=== PATIENT | female | born 1975 | race Hispanic/Latino ===

== ENCOUNTER 2018-06-04 20:15 | Emergency (ER) | payer SELFPAY ==
[2018-06-04] MEDS ORDERED: NA CHLORIDE 0.9% 100 ML IV ONE (21:18)
[2018-06-04] MEDS ORDERED: PROMETHAZINE 25 MG/ML VIAL ONE (21:18)
[2018-06-04] MEDS ORDERED: MORPHINE 4 MG/ML SYR ONE (21:18)
[2018-06-04] MEDS ORDERED: NA CHLORIDE 0.9% 1,000 ML ONE (21:18)
--- NOTE | 2018-06-04 22:51 | EDPHYS ---
Physician Documentation [facility] Name: Yissel Carmona Age: 42 yrs Sex: Female : 1975 Arrival Date: 06/04/2018 Time: 20:17 Bed 23 Private MD: ED Physician Dwayne Joyner HPI: 06/05 04:53 This 42 yrs old Female presents to ER via Ambulatory with complaints of tw4 Headache. 04:53 The patient complains of pain to the forehead. The patient describes the headache as tw4 pounding, a pressure. Onset: The symptoms/episode began/occurred today. Associated signs and symptoms: Pertinent positives: nausea, vomiting. Severity of symptoms: At its worst the pain was moderate, in the emergency department the pain is unchanged. Headache History: Denies prior headaches. The patient has not experienced similar symptoms in the past. 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 - Social history:: Smoking status: Patient/guardian denies using tobacco. - Ebola Screening: : Patient denies travel to an Ebola-affected area in the 21 days before illness onset. ROS: 06/05 04:53 Constitutional: Negative for fever, chills, and weight loss, Eyes: Negative for injury, tw4 pain, redness, and discharge, Cardiovascular: Negative for chest pain, palpitations, and edema, Respiratory: Negative for shortness of breath, cough, wheezing, and pleuritic chest pain. Neck: Negative for stiffness. Abdomen/GI: Positive for nausea and vomiting, Negative for abdominal pain, nausea, vomiting, diarrhea, constipation, abdominal cramps, abdominal distension. Neuro: Positive for headache, Negative for altered mental status, dizziness, gait disturbance, tinnitus. Neuro: Positive for Negative for hearing loss, loss of consciousness, numbness, seizure activity, tremor, visual changes, weakness. Exam: 04:53 Head/Face: Normocephalic, atraumatic. Eyes: Pupils equal round and reactive to light, tw4 extra-ocular motions intact. Lids and lashes normal. Conjunctiva and sclera are non-icteric and not injected. Cornea within normal limits. Periorbital areas with no swelling, redness, or edema. Chest/axilla: Normal chest wall appearance and motion. Nontender with no deformity. No lesions are appreciated. Cardiovascular: Regular rate and rhythm with a normal S1 and S2. No gallops, murmurs, or rubs. Normal PMI, no JVD. No pulse deficits. Respiratory: Lungs have equal breath sounds bilaterally, clear to auscultation and percussion. No rales, rhonchi or wheezes noted. No increased work of breathing, no retractions or nasal flaring. Abdomen/GI: Soft, non-tender, with normal bowel sounds. No distension or tympany. No guarding or rebound. No evidence of tenderness throughout. MS/ Extremity: Pulses equal, no cyanosis. Neurovascular intact. Full, normal range of motion. Neuro: Awake and alert, GCS 15, oriented to person, place, time, and situation. Cranial nerves II-XII grossly intact. Motor strength 5/5 in all extremities. Sensory grossly intact. Cerebellar exam normal. Normal gait. 04:53 Constitutional: The patient appears in obvious distress, mildly distressed, in obvious pain, uncomfortable. Vital Signs: 06/04 20:22 BP 129 / 89; Pulse 111; Resp 20; Temp 97.8; Pulse Ox 99% on R/A; Weight 86.18 kg (R); aj1 Height 5 ft. 2 in. (157.48 cm) (R); Pain 8/10; 21:26 BP 122 / 76; Pulse 101; Resp 18; Pulse Ox 100% on R/A; Pain 6/10; mg2 22:55 BP 123 / 70; Pulse 83; Resp 18; Pulse Ox 100% on R/A; Pain 0/10; mg2 20:22 Body Mass Index 34.75 (86.18 kg, 157.48 cm) aj1 Liberty Coma Score: 06/05 04:53 Eye Response: spontaneous(4). Verbal Response: oriented(5). Motor Response: obeys tw4 commands(6). Total: 15. MDM: 06/04 20:24 Patient medically screened. tw4 06/05 04:53 Differential diagnosis: migraine, sinusitis, tension headache, traumatic injuries, tw4 vasomotor headache. Data reviewed: vital signs, nurses notes. Data interpreted: Pulse oximetry: Interpretation: normal. Counseling: I had a detailed discussion with the patient and/or guardian regarding: the historical points, exam findings, and any diagnostic results supporting the discharge/admit diagnosis. Medication response: Toradol relieved patient's pain. The symptoms have resolved. Response to treatment: the patient's symptoms have markedly improved after treatment, and as a result, I will discharge patient. Special discussion: I discussed with the patient/guardian in detail that at this point there is no indication for admission to the hospital. It is understood, however, that if the symptoms persist or worsen the patient needs to return immediately for re-evaluation. Administered Medications: 06/04 21:15 Drug: Phenergan 12.5 mg Route: IVP; Site: right antecubital; mg2 23:11 Follow up: Response: No adverse reaction; Marked relief of symptoms; Vomiting decreased mg2 21:15 Drug: NS 0.9% 1000 ml Route: IV; Rate: 1 bolus; Site: right antecubital; mg2 23:05 Follow up: Response: No adverse reaction; IV Status: Completed infusion mg2 21:16 Drug: morphine 4 mg Route: IVP; Site: right antecubital; mg2 23:12 Follow up: Response: No adverse reaction; Marked relief of symptoms mg2 Disposition: 06/04/18 22:50 Discharged to Home. Impression: Migraine with aura, not intractable, without status migrainosus. - Condition is Stable. - Discharge Instructions: Migraine Headache, [id number], Recurrent Migraine Headache, [id number]. - Prescriptions for Fiorinal 50- 325-40 mg Oral Capsule - take 1 capsule by ORAL route every 4 hours As needed - not to exceed 6 capsules per day; 20 capsule. promethazine 25 mg Oral Tablet - take 1 tablet by ORAL route every 6 hours As needed; 20 tablet. - Medication Reconciliation Form, Thank You Letter, Antibiotic Education, Prescription Opioid Use, Work release form form. - Follow up: Private Physician; When: Upon discharge from the Emergency Department; Reason: Further diagnostic work-up, Recheck today's complaints, Continuance of care. - Problem is new. - Symptoms have improved. Signatures: Lisset Simental, RN RN aj1 Dwayne Joyner MD MD tw4 Tashi Weaver, RN RN mg2 Corrections: (The following items were deleted from the chart) 23:14 22:50 06/04/2018 22:50 Discharged to Home. Impression: Migraine with aura, not mg2 intractable, without status migrainosus. Condition is Stable. Forms are Medication Reconciliation Form, Thank You Letter, Antibiotic Education, Prescription Opioid Use. Follow up: Private Physician; When: Upon discharge from the Emergency Department; Reason: Further diagnostic work-up, Recheck today's complaints, Continuance of care. Problem is new. Symptoms have improved. tw4
--- NOTE | 2018-06-04 22:51 | ER ---
Nurse's Notes [facility] Name: Yissel Carmona Age: 42 yrs Sex: Female : 1975 Arrival Date: 06/04/2018 Time: 20:17 Bed 23 Private MD: Diagnosis: Migraine with aura, not intractable, without status migrainosus Presentation: 06/04 20:19 Presenting complaint: Patient states: "I have a bad migraine with nausea" Reports aj1 headache that started at 1300 today. Patient reports a history of migraines, and this feel similar to previous episodes. Patient states that she has an appointment with her neurologist next week. Transition of care: patient was not received from another setting of care. Onset of symptoms was June 04, 2018 at 13:00. Risk Assessment: Do you want to hurt yourself or someone else? Patient reports no desire to harm self or others. Initial Sepsis Screen: Does the patient meet any 2 criteria? HR > 90 bpm. No. Patient's initial sepsis screen is negative. Does the patient have a suspected source of infection? No. Patient's initial sepsis screen is negative. Care prior to arrival: None. 20:19 Method Of Arrival: Ambulatory aj1 20:19 Acuity: NEVAEH 3 aj1 Triage Assessment: 20:22 General: Appears in no apparent distress. uncomfortable, Behavior is calm, cooperative, aj1 appropriate for age. Pain: Complains of pain in forehead Pain currently is 8 out of 10 on a pain scale. Neuro: Level of Consciousness is awake, alert, obeys commands. Cardiovascular: Patient's skin is warm and dry. Respiratory: Airway is patent Respiratory effort is even, unlabored, Respiratory pattern is regular, symmetrical. 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 - Social history:: Smoking status: Patient/guardian denies using tobacco. - Ebola Screening: : Patient denies travel to an Ebola-affected area in the 21 days before illness onset. Screenin:36 Abuse screen: Denies threats or abuse. Denies injuries from another. Nutritional mg2 screening: No deficits noted. Tuberculosis screening: No symptoms or risk factors identified. Fall Risk IV access (20 points). Assessment: 23:12 Reassessment: Patient appears in no apparent distress at this time. Patient and/or mg2 family updated on plan of care and expected duration. Pain level reassessed. Patient is alert, oriented x 3, equal unlabored respirations, skin warm/dry/pink. Patient denies pain at this time. Patient states feeling better. General: Appears in no apparent distress. Vital Signs: 20:22 BP 129 / 89; Pulse 111; Resp 20; Temp 97.8; Pulse Ox 99% on R/A; Weight 86.18 kg (R); aj1 Height 5 ft. 2 in. (157.48 cm) (R); Pain 8/10; 21:26 BP 122 / 76; Pulse 101; Resp 18; Pulse Ox 100% on R/A; Pain 6/10; mg2 22:55 BP 123 / 70; Pulse 83; Resp 18; Pulse Ox 100% on R/A; Pain 0/10; mg2 20:22 Body Mass Index 34.75 (86.18 kg, 157.48 cm) aj1 Michelle Coma Score: 06/05 04:53 Eye Response: spontaneous(4). Verbal Response: oriented(5). Motor Response: obeys tw4 commands(6). Total: 15. ED Course: 06/04 20:17 Patient arrived in ED. am2 20:21 Triage completed. aj1 20:22 Arm band placed on Patient placed in an exam room. aj1 20:24 Dwayne Joyner MD is Attending Physician. tw4 20:30 Inserted saline lock: 20 gauge in right antecubital area, using aseptic technique. jb5 Blood collected. 20:34 Tashi Weaver, TORRES is Primary Nurse. mg2 23:12 No provider procedures requiring assistance completed. IV discontinued, intact, mg2 bleeding controlled, No redness/swelling at site. Pressure dressing applied. 23:13 Patient has correct armband on for positive identification. mg2 Administered Medications: 21:15 Drug: Phenergan 12.5 mg Route: IVP; Site: right antecubital; mg2 23:11 Follow up: Response: No adverse reaction; Marked relief of symptoms; Vomiting decreased mg2 21:15 Drug: NS 0.9% 1000 ml Route: IV; Rate: 1 bolus; Site: right antecubital; mg2 23:05 Follow up: Response: No adverse reaction; IV Status: Completed infusion mg2 21:16 Drug: morphine 4 mg Route: IVP; Site: right antecubital; mg2 23:12 Follow up: Response: No adverse reaction; Marked relief of symptoms mg2 Outcome: 22:50 Discharge ordered by . maco 23:13 Discharged to home ambulatory, with friend. mg2 23:13 Condition: improved 23:13 Discharge instructions given to patient, friend, Instructed on discharge instructions, follow up and referral plans. Demonstrated understanding of instructions, follow-up care. 23:14 Patient left the ED. mg2 Signatures: Lisset Simental RN RN aj1 Elsa Barcenas jb5 Ashley Rodriguez am2 Dwayne Joyner MD MD tw4 Tashi Weaver RN RN mg2
== END 2018-06-04 23:14 | disposition home or self-care (01) ==
LOC: ER 20:15
DX: G43.109 Migraine with aura, not intractable, without status migrainosus (principal)
CPT/HCPCS: 96361; 96374; 96375; 99283; J2550; J7030

== ENCOUNTER 2018-08-01 14:06 | Emergency (ER) | payer OTHER ==
--- OUTSIDE RECORDS SUMMARY | 2018-08-01 14:09 | XMS REPORT ---
:1975 [facility] Anthony Dr. Zhang [address] [place] [id number] Care Team Providers Name Role Phone Unavailable Unavailable Unavailable Problems This patient has no known problems. Allergies, Adverse Reactions, Alerts This patient has no known allergies or adverse reactions. Medications This patient has no known medications.
[2018-08-01] MEDS ORDERED: MORPHINE 4 MG/ML SYR ONE (15:39)
[2018-08-01] MEDS ORDERED: NA CHLORIDE 0.9% 1,000 ML ONE (15:39)
[2018-08-01] MEDS ORDERED: PROMETHAZINE 25 MG/ML VIAL ONE (15:39)
--- NOTE | 2018-08-01 16:45 | ER ---
Nurse's Notes [facility] Name: Yissel Carmona Age: 42 yrs Sex: Female : 1975 Arrival Date: 08/01/2018 Time: 14:10 Bed 27 Private MD: None, None Diagnosis: Migraine Presentation: 08/01 14:30 Presenting complaint: Patient states: Frontal headache, nausea, and photosensitivity x hb 2 hrs. Hx of migraines. Transition of care: patient was not received from another setting of care. Onset of symptoms was August 01, 2018. Risk Assessment: Do you want to hurt yourself or someone else? Patient reports no desire to harm self or others. Care prior to arrival: Medication(s) given: Excedrin Migraine 2 hrs [employer]. 14:30 Method Of Arrival: Ambulatory hb 14:30 Acuity: NEVAEH 3 hb 15:35 Initial Sepsis Screen: Does the patient meet any 2 criteria? No. Patient's initial rv sepsis screen is negative. Does the patient have a suspected source of infection? No. Patient's initial sepsis screen is negative. Historical: - Allergies: 14:32 Cipro; hb 14:32 Reglan; hb 14:32 Stadol; hb 14:32 Toradol; hb 14:32 Zofran; hb - Home Meds: 14:32 Topamax Oral [Active]; hb - PMHx: 14:32 Migraines; one kidney; hb - PSHx: 14:32 Cholecystectomy; hb - Immunization history:: Adult Immunizations up to date. - Social history:: Smoking status: Patient/guardian denies using tobacco. - Ebola Screening: : No symptoms or risks identified at this time. Screenin:35 Abuse screen: Denies threats or abuse. Denies injuries from another. Nutritional rv screening: No deficits noted. Tuberculosis screening: No symptoms or risk factors identified. Fall Risk None identified. Assessment: 15:34 General: Appears in no apparent distress. uncomfortable, Behavior is calm, cooperative. rv Pain: Complains of pain in head. Neuro: Level of Consciousness is awake, alert, obeys commands, Oriented to person, place, time, situation. Cardiovascular: Capillary refill < 3 seconds. Respiratory: Airway is patent. GI: No signs and/or symptoms were reported involving the gastrointestinal system. : No signs and/or symptoms were reported regarding the genitourinary system. EENT: No signs and/or symptoms were reported regarding the EENT system. Derm: Skin is intact. Musculoskeletal: No signs and/or symptoms reported regarding the musculoskeletal system. Vital Signs: 14:32 BP 138 / 74; Pulse 95; Resp 16; Temp 97; Pulse Ox 100% on R/A; Pain 10/10; hb 15:00 BP 127 / 76; Pulse 92; Resp 17 S; Pulse Ox 100% on R/A; rv 17:30 BP 124 / 69; Pulse 88; Resp 18; Pulse Ox 99% on R/A; rv ED Course: 14:10 Patient arrived in ED. sb2 14:11 None, None is Private Physician. sb2 14:32 Triage completed. hb 14:32 Arm band placed on right wrist. hb 15:08 Mendel Miranda, [place] is PHCP. pm1 15:08 Silvio Tesfaye MD is Attending Physician. pm1 15:35 Patient has correct armband on for positive identification. Bed in low position. Call rv light in reach. Side rails up X 1. Adult w/ patient. Pulse ox on. NIBP on. 15:48 Inserted saline lock: 20 gauge in left antecubital area, using aseptic technique. ds4 Missed attempt(s): 24 gauge in right antecubital area. Bleeding controlled, band aid applied, catheter tip intact. 17:31 No provider procedures requiring assistance completed. IV discontinued, bleeding rv controlled, No redness/swelling at site. Pressure dressing applied. Administered Medications: 15:46 Drug: Phenergan 12.5 mg Route: IVP; Site: left antecubital; rv 17:30 Follow up: Response: Pain is decreased rv 15:46 Drug: NS 0.9% 1000 ml Route: IV; Rate: 1000 ml; Site: left antecubital; rv 17:30 Follow up: IV Status: Completed infusion rv 15:47 Drug: morphine 4 mg Route: IVP; Site: left antecubital; rv 17:30 Follow up: Response: Pain is decreased rv Outcome: 16:44 Discharge ordered by . pm1 17:31 Discharged to home ambulatory. rv 17:31 Condition: improved 17:31 Discharge instructions given to patient, family, Instructed on discharge instructions, follow up and referral plans. medication usage, Demonstrated understanding of instructions, follow-up care, medications, Prescriptions given X 2. 17:31 Patient left the ED. rv Signatures: Christian Ramon ds4 Mendel Miranda, MANAGER OF RADIOLOGY MANAGER OF RADIOLOGY pm1 Latrice Villalobos, RN RN Ying Weber sb2 Carlos Waldron RN RN rv
--- NOTE | 2018-08-01 16:45 | EDPHYS ---
Physician Documentation [facility] Name: Yissel Carmona Age: 42 yrs Sex: Female : 1975 Arrival Date: 08/01/2018 Time: 14:10 Bed 27 Private MD: None, None ED Physician Silvio Tesfaye HPI: 08/01 15:30 This 42 yrs old Female presents to ER via Ambulatory with complaints of pm1 MIGRAINE. 15:30 The patient complains of pain to the forehead. The patient describes the headache as pm1 aching, constant. Onset: The symptoms/episode began/occurred 2 hours prior to arrival. Associated signs and symptoms: Pertinent positives: nausea, Photophobia Pertinent negatives: fever, neck stiffness, paresthesias, vision changes, vision loss, vomiting. 15:30 Severity of symptoms: in the emergency department the pain is actually worse. Headache pm1 History: The patient has had previous headaches and this one is similar to previous episodes. The symptoms are alleviated by Darkened room, quiet, the symptoms are aggravated by lights, noise, Ran out of her topamax medication for the past few day. The patient has experienced similar episodes in the past, multiple times. The patient has not recently seen a physician, has an appointment scheduled. Historical: - Allergies: 14:32 Cipro; hb 14:32 Reglan; hb 14:32 Stadol; hb 14:32 Toradol; hb 14:32 Zofran; hb - Home Meds: 14:32 Topamax Oral [Active]; hb - PMHx: 14:32 Migraines; one kidney; hb - PSHx: 14:32 Cholecystectomy; hb - Immunization history:: Adult Immunizations up to date. - Social history:: Smoking status: Patient/guardian denies using tobacco. - Ebola Screening: : No symptoms or risks identified at this time. ROS: 15:30 Constitutional: Negative for fever, chills, and weight loss, Eyes: Negative for injury, pm1 pain, redness, and discharge, ENT: Negative for injury, pain, and discharge, Neck: Negative for injury, pain, and swelling, Cardiovascular: Negative for chest pain, palpitations, and edema, Respiratory: Negative for shortness of breath, cough, wheezing, and pleuritic chest pain, Abdomen/GI: Negative for abdominal pain, nausea, vomiting, diarrhea, and constipation, Back: Negative for injury and pain, : Negative for injury, bleeding, discharge, and swelling, MS/Extremity: Negative for injury and deformity, Skin: Negative for injury, rash, and discoloration. 15:30 Neuro: Positive for headache, Negative for altered mental status, dizziness, numbness, tingling. Exam: 15:30 Constitutional: This is a well developed, well nourished patient who is awake, alert, pm1 and in no acute distress. Head/Face: Normocephalic, atraumatic. Eyes: Pupils equal round and reactive to light, extra-ocular motions intact. Lids and lashes normal. Conjunctiva and sclera are non-icteric and not injected. Cornea within normal limits. Periorbital areas with no swelling, redness, or edema. ENT: Nares patent. No nasal discharge, no septal abnormalities noted. Tympanic membranes are normal and external auditory canals are clear. Oropharynx with no redness, swelling, or masses, exudates, or evidence of obstruction, uvula midline. Mucous membranes moist. Neck: Trachea midline, no thyromegaly or masses palpated, and no cervical lymphadenopathy. Supple, full range of motion without nuchal rigidity, or vertebral point tenderness. No Meningismus. Chest/axilla: Normal chest wall appearance and motion. Nontender with no deformity. No lesions are appreciated. Cardiovascular: Regular rate and rhythm with a normal S1 and S2. No gallops, murmurs, or rubs. Normal PMI, no JVD. No pulse deficits. Respiratory: Lungs have equal breath sounds bilaterally, clear to auscultation and percussion. No rales, rhonchi or wheezes noted. No increased work of breathing, no retractions or nasal flaring. Abdomen/GI: Soft, non-tender, with normal bowel sounds. No distension or tympany. No guarding or rebound. No evidence of tenderness throughout. Back: No spinal tenderness. No costovertebral tenderness. Full range of motion. Skin: Warm, dry with normal turgor. Normal color with no rashes, no lesions, and no evidence of cellulitis. MS/ Extremity: Pulses equal, no cyanosis. Neurovascular intact. Full, normal range of motion. 15:30 Neuro: Orientation: is normal, Mentation: is normal, Cranial nerves: CN II- XII are normal as tested, Cerebellar function: normal finger to nose testing, Motor: moves all fours, strength is normal, strength is 5/5 in all extremities, Sensation: is normal, no obvious gross deficits, Gait: is steady, at a normal pace, without difficulty. Vital Signs: 14:32 BP 138 / 74; Pulse 95; Resp 16; Temp 97; Pulse Ox 100% on R/A; Pain 10/10; hb 15:00 BP 127 / 76; Pulse 92; Resp 17 S; Pulse Ox 100% on R/A; rv 17:30 BP 124 / 69; Pulse 88; Resp 18; Pulse Ox 99% on R/A; rv MDM: 15:09 Patient medically screened. pm1 16:43 Data reviewed: vital signs. Data interpreted: Pulse oximetry: on room air is 100 %. pm1 Interpretation: normal. Counseling: I had a detailed discussion with the patient and/or guardian regarding: the historical points, exam findings, and any diagnostic results supporting the discharge/admit diagnosis, the need for outpatient follow up, to return to the emergency department if symptoms worsen or persist or if there are any questions or concerns that arise at home. 08/01 15:25 Order name: IV Saline Lock; Complete Time: 15:46 pm1 Administered Medications: 15:46 Drug: Phenergan 12.5 mg Route: IVP; Site: left antecubital; rv 17:30 Follow up: Response: Pain is decreased rv 15:46 Drug: NS 0.9% 1000 ml Route: IV; Rate: 1000 ml; Site: left antecubital; rv 17:30 Follow up: IV Status: Completed infusion rv 15:47 Drug: morphine 4 mg Route: IVP; Site: left antecubital; rv 17:30 Follow up: Response: Pain is decreased rv Disposition: 17:55 Co-signature as Attending Physician, Silvio Tesfaye MD. rn Disposition: 08/01/18 16:44 Discharged to Home. Impression: Migraine. - Condition is Stable. - Discharge Instructions: Migraine Headache. - Prescriptions for Fiorinal 50- 325-40 mg Oral Capsule - take 1 capsule by ORAL route every 4 hours As needed - not to exceed 6 capsules per day; 20 capsule. Topamax 50 mg Oral tablet - take 1 tablet by ORAL route 2 times per day; 20 tablet. - Medication Reconciliation Form, Thank You Letter, Prescription Opioid Use, Work release form form. - Follow up: Emergency Department; When: As needed; Reason: Worsening of condition. Follow up: Private Physician; When: 2 - 3 days; Reason: Recheck today's complaints, Continuance of care, Re-evaluation by your physician. - Problem is new. - Symptoms have improved. Signatures: Silvio Tesfaye MD MD rn Marinas, Patrick, NP HEAD RESIDENT pm1 Latrcie Villalobos RN RN Carlos Waldron RN RN rv Corrections: (The following items were deleted from the chart) 17:31 16:44 08/01/2018 16:44 Discharged to Home. Impression: Migraine. Condition is Stable. rv Forms are Medication Reconciliation Form, Thank You Letter, Antibiotic Education, Prescription Opioid Use. Follow up: Emergency Department; When: As needed; Reason: Worsening of condition. Follow up: Private Physician; When: 2 - 3 days; Reason: Recheck today's complaints, Continuance of care, Re-evaluation by your physician. Problem is new. Symptoms have improved. pm1
== END 2018-08-01 17:31 | disposition home or self-care (01) ==
LOC: ER 14:06
DX: G43.909 Migraine, unspecified, not intractable, without status migrainosus (principal)
CPT/HCPCS: 96361; 96374; 96375; 99284; J2550; J7030

== ENCOUNTER 2018-12-19 16:46 | Emergency (ER) | payer OTHER ==
--- OUTSIDE RECORDS SUMMARY | 2018-12-19 16:48 | XMS REPORT ---
:1975 [facility] Anthony Dr. Zhang [address] [place] [id number] Care Team Providers Name Role Phone Unavailable Unavailable Unavailable Problems This patient has no known problems. Allergies, Adverse Reactions, Alerts This patient has no known allergies or adverse reactions. Medications This patient has no known medications.
[2018-12-19] MEDS ORDERED: PROMETHAZINE 25 MG/ML VIAL ONE (18:19)
[2018-12-19] MEDS ORDERED: MORPHINE 4 MG/ML SYR ONE (18:21)
[2018-12-19] MEDS ORDERED: NA CHLORIDE 0.9% 1,000 ML ONE (18:21)
--- NOTE | 2018-12-19 18:40 | EDPHYS ---
Physician Documentation [facility] Name: Yissel Carmona Age: 43 yrs Sex: Female : 1975 Arrival Date: 12/19/2018 Time: 16:48 Bed 14 Private MD: ED Physician Silvio Tesfaye HPI: 12/19 18:35 This 43 yrs old Female presents to ER via Ambulatory with complaints of kb Headache. 18:35 The patient complains of pain to the forehead. The patient describes the headache as kb throbbing. Onset: The symptoms/episode began/occurred this morning. Associated signs and symptoms: Pertinent positives: Photophobia. Severity of symptoms: At its worst the pain was moderate, in the emergency department the pain is unchanged. Headache History: The patient has had previous headaches and this one is similar to previous episodes. The symptoms are alleviated by Darkened room, quiet, the symptoms are aggravated by nothing. The patient has experienced similar episodes in the past, chronically. The patient has not recently seen a physician. 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 - Social history:: Smoking status: Patient/guardian denies using tobacco. - Ebola Screening: : No symptoms or risks identified at this time. ROS: 18:35 Constitutional: Negative for fever, chills, and weight loss, ENT: Negative for injury, kb pain, and discharge, Neck: Negative for injury, pain, and swelling, Cardiovascular: Negative for chest pain, palpitations, and edema, Respiratory: Negative for shortness of breath, cough, wheezing, and pleuritic chest pain, Abdomen/GI: Negative for abdominal pain, nausea, vomiting, diarrhea, and constipation, Back: Negative for injury and pain, MS/Extremity: Negative for injury and deformity, Skin: Negative for injury, rash, and discoloration. 18:35 Neuro: Positive for headache. Exam: 18:35 Constitutional: This is a well developed, well nourished patient who is awake, alert, kb and in no acute distress. Head/Face: Normocephalic, atraumatic. Eyes: Pupils equal round and reactive to light, extra-ocular motions intact. Lids and lashes normal. Conjunctiva and sclera are non-icteric and not injected. Cornea within normal limits. Periorbital areas with no swelling, redness, or edema. ENT: Nares patent. No nasal discharge, no septal abnormalities noted. Tympanic membranes are normal and external auditory canals are clear. Oropharynx with no redness, swelling, or masses, exudates, or evidence of obstruction, uvula midline. Mucous membranes moist. Neck: Trachea midline, no thyromegaly or masses palpated, and no cervical lymphadenopathy. Supple, full range of motion without nuchal rigidity, or vertebral point tenderness. No Meningismus. Chest/axilla: Normal chest wall appearance and motion. Nontender with no deformity. No lesions are appreciated. Cardiovascular: Regular rate and rhythm with a normal S1 and S2. No gallops, murmurs, or rubs. Normal PMI, no JVD. No pulse deficits. Respiratory: Lungs have equal breath sounds bilaterally, clear to auscultation and percussion. No rales, rhonchi or wheezes noted. No increased work of breathing, no retractions or nasal flaring. Abdomen/GI: Soft, non-tender, with normal bowel sounds. No distension or tympany. No guarding or rebound. No evidence of tenderness throughout. Skin: Warm, dry with normal turgor. Normal color with no rashes, no lesions, and no evidence of cellulitis. MS/ Extremity: Pulses equal, no cyanosis. Neurovascular intact. Full, normal range of motion. Neuro: Awake and alert, GCS 15, oriented to person, place, time, and situation. Cranial nerves II-XII grossly intact. Motor strength 5/5 in all extremities. Sensory grossly intact. Cerebellar exam normal. Normal gait. Vital Signs: 16:50 BP 144 / 74; Pulse 101; Resp 18; Temp 98.8(TE); Pulse Ox 99% on R/A; Weight 87.09 kg; hj Height 5 ft. 2 in. (157.48 cm); Pain 10/10; 19:02 BP 107 / 58; Pulse 91; Resp 18; Pulse Ox 94% on R/A; ph 19:31 BP 99 / 59; Pulse 96; Resp 16 S; Pulse Ox 99% on R/A; Pain 5/10; jd3 20:35 BP 103 / 65; Pulse 86; Resp 18 S; Pulse Ox 100% on R/A; Pain 0/10; jd3 16:50 Body Mass Index 35.12 (87.09 kg, 157.48 cm) hj [place] Coma Score: 18:35 Eye Response: spontaneous(4). Verbal Response: oriented(5). Motor Response: obeys kb commands(6). Total: 15. MDM: 17:44 Patient medically screened. kb 18:35 Data reviewed: vital signs, nurses notes. Data interpreted: Pulse oximetry: on room air kb is 99 %. Interpretation: normal. Counseling: I had a detailed discussion with the patient and/or guardian regarding: the historical points, exam findings, and any diagnostic results supporting the discharge/admit diagnosis, the need for outpatient follow up, a family practitioner, to return to the emergency department if symptoms worsen or persist or if there are any questions or concerns that arise at home. 12/19 17:54 Order name: IV Start; Complete Time: 18:16 kb Administered Medications: 18:16 Drug: NS 0.9% 1000 ml Route: IV; Rate: 1000 ml; Site: right antecubital; ph 20:37 Follow up: Response: No adverse reaction; IV Status: Completed infusion; IV Intake: jd3 1000ml 18:16 Drug: Phenergan 12.5 mg Route: IVP; Site: right antecubital; ph 19:00 Follow up: Response: No adverse reaction ph 18:16 Drug: morphine 4 mg Route: IVP; Site: right antecubital; ph 19:00 Follow up: Response: No adverse reaction ph Disposition: 12/19/18 18:39 Discharged to Home. Impression: Migraine. - Condition is Stable. - Discharge Instructions: Migraine Headache, [id number]. - Medication Reconciliation Form, Thank You Letter, Antibiotic Education, Prescription Opioid Use, Work release form form. - Follow up: Emergency Department; When: As needed; Reason: Worsening of condition. Follow up: Private Physician; When: 2 - 3 days; Reason: Recheck today's complaints, Continuance of care, Re-evaluation by your physician. Addendum: 12/21/2018 06:57 Co-signature as Attending Physician, Silvio Tesfaye MD. r n Signatures: Cleo Calhoun, CROCHET MACHINE OPERATOR-C CROCHET MACHINE OPERATOR-Ckb Silvio Tesfaye MD MD rn Shelley Bain RN RN Demario Amaya, RN RN Jerzy Vera RN RN jd3 Corrections: (The following items were deleted from the chart) 12/19 20:37 18:39 12/19/2018 18:39 Discharged to Home. Impression: Migraine. Condition is Stable. jd3 Forms are Medication Reconciliation Form, Thank You Letter, Antibiotic Education, Prescription Opioid Use. Follow up: Emergency Department; When: As needed; Reason: Worsening of condition. Follow up: Private Physician; When: 2 - 3 days; Reason: Recheck today's complaints, Continuance of care, Re-evaluation by your physician. kb
--- NOTE | 2018-12-19 18:40 | ER ---
Nurse's Notes [facility] Name: Yissel Carmona Age: 43 yrs Sex: Female : 1975 Arrival Date: 12/19/2018 Time: 16:48 Bed 14 Private MD: Diagnosis: Migraine Presentation: 12/19 16:49 Presenting complaint: Patient states: i have a migraine headache that started today, pain is 10/10; reports sensitivity to light and noise; reports nausea and vomiting; reports hx of migraine;. Transition of care: patient was not received from another setting of care. Onset of symptoms was December 19, 2018. Risk Assessment: Do you want to hurt yourself or someone else? Patient reports no desire to harm self or others. Initial Sepsis Screen: Does the patient meet any 2 criteria? No. Patient's initial sepsis screen is negative. Does the patient have a suspected source of infection? No. Patient's initial sepsis screen is negative. Care prior to arrival: None. 16:49 Method Of Arrival: Ambulatory 16:49 Acuity: NEVAEH 3 Triage Assessment: 18:20 Headache History: The patient has had previous headaches and this one is similar to ph previous episodes. 18:20 Pain: Pain currently is 10 out of 10 on a pain scale. Pain began "this morning" Also ph complains of nausea, photophobia. 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 - Social history:: Smoking status: Patient/guardian denies using tobacco. - Ebola Screening: : No symptoms or risks identified at this time. Screenin:18 Abuse screen: Denies threats or abuse. Denies injuries from another. Nutritional ph screening: No deficits noted. Tuberculosis screening: No symptoms or risk factors identified. Fall Risk None identified. Assessment: 18:17 General: Appears in no apparent distress. uncomfortable, Behavior is calm, cooperative, ph appropriate for age. Pain: Complains of pain in forehead and left eye. Neuro: Level of Consciousness is awake, alert, obeys commands, Oriented to person, place, time, situation, Reports headache photophobia Denies blurred vision dizziness. Cardiovascular: Capillary refill < 3 seconds in bilateral fingers Patient's skin is warm and dry. Respiratory: Airway is patent Respiratory effort is even, unlabored, Respiratory pattern is regular, symmetrical. GI: Reports nausea, Patient currently denies abdominal pain, vomiting. Derm: Skin is intact, is healthy with good turgor, Skin is pink, warm \\T\\ dry. Musculoskeletal: Circulation, motion, and sensation intact. Range of motion: intact in all extremities. 19:00 Reassessment: Patient appears in no apparent distress at this time. Patient and/or ph family updated on plan of care and expected duration. Pain level reassessed. Patient is alert, oriented x 3, equal unlabored respirations, skin warm/dry/pink. Pt resting quietly, reports that headache has improved " a little" rates pain 9/10 and denies nausea, d/c pending completion of IV fluids. 19:29 General: Appears in no apparent distress. uncomfortable, Behavior is calm, cooperative, jd3 appropriate for age. Pain: Complains of pain in forehead Quality of pain is described as aching, pressure. Neuro: Level of Consciousness is awake, alert, obeys commands, Oriented to person, place, time, situation. Cardiovascular: Capillary refill < 3 seconds Patient's skin is warm and dry. Respiratory: Airway is patent Respiratory effort is even, unlabored, Respiratory pattern is regular, symmetrical. GI: Patient currently denies abdominal pain, vomiting. : No signs and/or symptoms were reported regarding the genitourinary system. EENT: No signs and/or symptoms were reported regarding the EENT system. Derm: Skin is intact, Skin is dry, Skin is normal, Skin temperature is warm. Musculoskeletal: Circulation, motion, and sensation intact. Range of motion: intact in all extremities. 20:36 Reassessment: Patient appears in no apparent distress at this time. Patient and/or jd3 family updated on plan of care and expected duration. Pain level reassessed. Patient is alert, oriented x 3, equal unlabored respirations, skin warm/dry/pink. Vital Signs: 16:50 BP 144 / 74; Pulse 101; Resp 18; Temp 98.8(TE); Pulse Ox 99% on R/A; Weight 87.09 kg; hj Height 5 ft. 2 in. (157.48 cm); Pain 10/10; 19:02 BP 107 / 58; Pulse 91; Resp 18; Pulse Ox 94% on R/A; ph 19:31 BP 99 / 59; Pulse 96; Resp 16 S; Pulse Ox 99% on R/A; Pain 5/10; jd3 20:35 BP 103 / 65; Pulse 86; Resp 18 S; Pulse Ox 100% on R/A; Pain 0/10; jd3 16:50 Body Mass Index 35.12 (87.09 kg, 157.48 cm) hj [place] Coma Score: 18:35 Eye Response: spontaneous(4). Verbal Response: oriented(5). Motor Response: obeys kb commands(6). Total: 15. ED Course: 16:48 Patient arrived in ED. mr 16:50 Triage completed. hj 16:52 Arm band placed on right wrist. hj 17:38 Shelley Bain RN is Primary Nurse. ph 17:44 Cleo Calhoun FNP-C is PHCP. kb 17:44 Silvio Tesfaye MD is Attending Physician. kb 18:17 Inserted saline lock: 20 gauge in right antecubital area, using aseptic technique. ph 18:18 No provider procedures requiring assistance completed. ph 18:19 Patient has correct armband on for positive identification. Bed in low position. Call ph light in reach. Side rails up X 1. Pulse ox on. NIBP on. Door closed. Noise minimized. Lights dimmed. Warm blanket given. Head of bed elevated. 19:44 Primary Nurse role handed off by Shelley Bain RN ed1 20:32 Jerzy Escobar RN is Primary Nurse. jd3 20:36 IV discontinued, intact, bleeding controlled, No redness/swelling at site. Pressure jd3 dressing applied. Administered Medications: 18:16 Drug: NS 0.9% 1000 ml Route: IV; Rate: 1000 ml; Site: right antecubital; ph 20:37 Follow up: Response: No adverse reaction; IV Status: Completed infusion; IV Intake: jd3 1000ml 18:16 Drug: Phenergan 12.5 mg Route: IVP; Site: right antecubital; ph 19:00 Follow up: Response: No adverse reaction ph 18:16 Drug: morphine 4 mg Route: IVP; Site: right antecubital; ph 19:00 Follow up: Response: No adverse reaction ph Intake: 20:37 IV: 1000ml; Total: 1000ml. jd3 Outcome: 18:39 Discharge ordered by . drew 20:35 Discharged to home ambulatory, with family. jd3 20:35 Condition: stable 20:35 Discharge instructions given to patient, Instructed on discharge instructions, follow up and referral plans. Demonstrated understanding of instructions, follow-up care. 20:37 Patient left the ED. jd3 Signatures: Cleo Calhoun, TRANSFORMATION CONSULTANT-C TRANSFORMATION CONSULTANT-Amalia Lipscomb mr Helena Kelly, RN RN ed1 Shelley Bain, RN RN Demario Fry, RN RN Jerzy Escobar RN RN jd3 Corrections: (The following items were deleted from the chart) 16:52 16:50 Pulse 101bpm; Resp 18bpm; Pulse Ox 99% RA; Temp 98.8F Temporal; 87.09 kg; Height hj 5 ft. 2 in.; BMI: 35.1; Pain 10/10; hj 20:36 20:35 BP 103 / 65; Pulse 86bpm; Resp 18bpm; Spontaneous; Pulse Ox 100% RA; jd3 jd3
== END 2018-12-19 20:37 | disposition home or self-care (01) ==
LOC: ER 16:46
DX: G43.909 Migraine, unspecified, not intractable, without status migrainosus (principal); Z88.1 Allergy status to other antibiotic agents; Z88.5 Allergy status to narcotic agent; Z88.8 Allergy status to other drugs, medicaments and biological substances
CPT/HCPCS: 96361; 96374; 96375; 99284; J2550; J7030

== ENCOUNTER 2020-01-29 20:53 | Emergency (ER) | payer OTHER, SELFPAY ==
[2020-01-29] MEDS ORDERED: NA CHLORIDE 0.9% 1,000 ML ONE (21:52)
[2020-01-29] MEDS ORDERED: PROMETHAZINE INJ 25 MG/ML AMP ONE (21:52)
[2020-01-29 22:09] LABS: Urine Blood 1+ (NEG); Urine Glucose NEGATIVE (NEG); Urine Protein NEGATIVE (NEG)
[2020-01-29] MEDS ORDERED: ONDANSETRON 4 MG/2 ML VIAL ONE (22:09)
[2020-01-29] MEDS ORDERED: MORPHINE 2 MG/ML SYR ONE (22:09)
[2020-01-29 22:19] LABS: Absolute Lymphocytes (CBC) 2.2 K/uL (0.7-4.9); Basophils % 0.4 % (0-1.3); Hematocrit 41.1 % (36.0-45.0); MPV 8.5 fL (7.6-11.3); RBC Red Blood Cell Count 4.78 M/uL (3.86-4.86)
[2020-01-29 22:21] LABS: Urine Bacteria >50 /HPF (<20); Urine Culture Reflex Order REFLEXED; Urine RBC <5 /HPF (NONE SEEN); Urine Trichomonas PRESENT (NONE SEEN)
[2020-01-29 22:31] LABS: ALT/SGPT 52 U/L (12-78); AST/SGOT 31 U/L (15-37); Albumin 3.6 g/dL (3.4-5.0); Alkaline Phosphatase 112 U/L (45-117); BUN Blood Urea Nitrogen 9 mg/dL (7-18); Bicarbonate 22 mmol/L (21-32); Bilirubin Direct < 0.1 mg/dL (0-0.2); Bilirubin Total 0.2 mg/dL (0.2-1.0); Glucose Level 91 mg/dL (74-106); Lipase 140 U/L (73-393); Protein, Total 7.9 g/dL (6.4-8.2); Sodium Level 142 mmol/L (136-145); Troponin (Emerg Dept Use Only) < 0.02 ng/mL (0.0-0.045)
--- NOTE | 2020-01-29 22:46 | ER ---
Nurse's Notes [facility] Name: Yissel Carmona Age: 44 yrs Sex: Female : 1975 Arrival Date: 01/29/2020 Time: 20:56 Bed 7 Private MD: Diagnosis: Vomiting;Cough;Pneumonia due to other specified bacteria-right upper lobe inf;Trichomoniasis;Urinary tract infection, site not specified;Hypokalemia Presentation: 01/28 21:07 Chief complaint: Patient states: N/V/loss of appetite and general body weakness x 2 ca1 weeks. 2 weeks ago, weighed 199, now weigh 186. 2 days ago, coughing and diarrhea started. Coronavirus screen: Surgical mask placed on patient. Patient moved to private room, placed in contact and droplet isolation with eye protection until further assessment. Patient reports a cough. Patient denies shortness of breath or difficulty breathing. Patient denies measured and/or subjective temperature greater than 100.4F prior to today's visit. Patient denies travel on a cruise ship or to a country the [facility] currently lists as an affected area. Patient denies contact with known and/or suspected case of COVID-19. Ebola Screen: Patient negative for fever greater than or equal to 101.5 degrees Fahrenheit, and additional compatible Ebola Virus Disease symptoms Patient denies exposure to infectious person. Patient denies travel to an Ebola-affected area in the 21 days before illness onset. No symptoms or risks identified at this time. Initial Sepsis Screen: Does the patient meet any 2 criteria? No. Patient's initial sepsis screen is negative. Does the patient have a suspected source of infection? No. Patient's initial sepsis screen is negative. Risk Assessment: Do you want to hurt yourself or someone else? Patient reports no desire to harm self or others. Onset of symptoms was January 29, 2020. 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 - Social history:: Smoking status: Patient denies any tobacco usage or history of. Screenin:00 Fall Risk IV access (20 points). mg2 01/29 01:17 Abuse screen: Denies threats or abuse. Denies injuries from another. Nutritional mg2 screening: No deficits noted. Tuberculosis screening: No symptoms or risk factors identified. Assessment: 01/28 22:00 General: Appears in no apparent distress. comfortable. mg2 22:00 Pain: Denies pain. Neuro: Level of Consciousness is awake, alert, obeys commands, mg2 Oriented to person, place, time, situation. Cardiovascular: Capillary refill < 3 seconds Patient's skin is warm and dry. Respiratory: Reports shortness of breath cough that is. GI: Abdomen is non-distended, Reports nausea, vomiting. : see urine dip. EENT: No signs and/or symptoms were reported regarding the EENT system. Derm: Skin is intact, is healthy with good turgor, Skin is pink, warm \T\ dry. normal. Musculoskeletal: Circulation, motion, and sensation intact. Capillary refill < 3 seconds. Vital Signs: 21:07 BP 109 / 58; Pulse 85; Resp 15 S; Temp 98(TE); Pulse Ox 100% on R/A; Weight 84.37 kg ca1 (R); Height 5 ft. 2 in. (157.48 cm) (R); 23:00 BP 120 / 78; Pulse 80; Resp 18; Temp 98; Pulse Ox 100% on R/A; mg2 01/29 00:10 BP 115 / 78; Pulse 80; Resp 18; Pulse Ox 100% on R/A; mg2 01:17 BP 121 / 78; Pulse 71; Resp 18; Temp 98; Pulse Ox 100% on R/A; mg2 01/28 21:07 Body Mass Index 34.02 (84.37 kg, 157.48 cm) ca1 ED Course: 01/28 20:56 Patient arrived in ED. ds1 21:07 Cleo Calhoun FNP-C is PHCP. kb 21:07 Yasmani Calvillo MD is Attending Physician. kb 21:11 Triage completed. ca1 21:12 Arm band placed on right wrist. ca1 21:21 Yasmani Calvillo MD is Attending Physician. stephanie 21:41 Tashi Weaver RN is Primary Nurse. mg2 22:00 Inserted saline lock: 18 gauge in right antecubital area, using aseptic technique. mg2 Blood collected. by TORRES Chin. 22:09 No provider procedures requiring assistance completed. mg2 22:47 Max Rios MD is Referral Physician. stephanie 22:55 Chest Single View XRAY In Process Unspecified. EDMS 01/29 01:17 IV discontinued, intact, bleeding controlled, No redness/swelling at site. Pressure mg2 dressing applied. Administered Medications: 01/28 22:08 Drug: Phenergan 12.5 mg Route: IVP; Site: right antecubital; mg2 01/29 01:15 Follow up: Response: No adverse reaction mg2 01/28 22:09 Drug: NS 0.9% 1000 ml Route: IV; Rate: 1 bolus; Site: right antecubital; mg2 01/29 01:15 Follow up: Response: No adverse reaction; IV Status: Completed infusion; IV Intake: mg2 1000ml 01/28 23:15 Drug: Zithromax 500 mg Route: IVPB; Infused Over: 1 hrs; Site: right antecubital; mg2 01/29 01:14 Follow up: Response: No adverse reaction; IV Status: Completed infusion mg2 01/28 23:15 Drug: Rocephin 2 grams Route: IV; Rate: per protocol; Site: right antecubital; mg2 01/29 01:14 Follow up: Response: No adverse reaction; IV Status: Completed infusion mg2 01/28 23:15 Drug: NS 0.9% with KCl 20 mEq/L 1000 ml Route: IV; Rate: 500 ml/hr; Site: right mg2 antecubital; 01/29 01:14 Follow up: Response: No adverse reaction; IV Status: Completed infusion mg2 01/28 23:15 Drug: Aspirin 81 mg Route: PO; mg2 01/29 01:14 Follow up: Response: No adverse reaction mg2 01/28 23:16 Drug: Potassium Effervescent Tablet 50 mEq Route: PO; mg2 01/29 01:15 Follow up: Response: No adverse reaction mg2 Intake: 01:15 IV: 1000ml; Total: 1000ml. mg2 Outcome: 01/28 22:45 Discharge ordered by . [facility] 01/29 01:18 Discharged to home ambulatory. mg2 Condition: stable Discharge instructions given to patient, Instructed on discharge instructions, follow up and referral plans. medication usage, Demonstrated understanding of instructions, follow-up care, medications, Prescriptions given X 4. 01:18 Patient left the ED. mg2 Addendum: 02/01/2020 09:28 Addendum: COVID-19 Result: Positive result giiven to ED physician to notify pt. s s Physician: Yasmani Calvillo MD Physician attempted to contact pt. Physician left voice mail for pt to call the ED back. Other: Has been called twice. 02/03/2020 10:49 Addendum: Culture Results: Positive urine culture. Prescription called-in to pharmacy [facility] of choice. not a working number. Signatures: Dispatcher [employer] EDCleo Obrien, DIRECTOR OF HEALTHCARE SYSTEMS-C DIRECTOR OF HEALTHCARE SYSTEMS-Grisel Morse, RN RN dmReno Church RN RN Yasmani Sibley MD MD cha [place], Demi ds1 Joceline rS RN RN ss Tashi Weaver RN RN mg2 Kimber Pagan RN RN ca1 Corrections: (The following items were deleted from the chart) 01/29 01:16 01:15 General: Appears in no apparent distress. comfortable, mg2 mg2 01:48 01:38 Patient left the ED. kary sg
--- NOTE | 2020-01-29 22:46 | EDPHYS ---
Physician Documentation [facility] Name: Yissel Carmona Age: 44 yrs Sex: Female : 1975 Arrival Date: 01/29/2020 Time: 20:56 Bed 7 Private MD: ED Physician Yasmani Calvillo HPI: 01/28 21:38 This 44 yrs old Female presents to ER via Ambulatory with complaints of stephanie Nausea/Vomiting. 21:38 The patient presents to the emergency department with nausea, vomiting. Onset: The stephanie symptoms/episode began/occurred 5 day(s) ago. Possible causes: unknown. The symptoms are aggravated by nothing. The symptoms are alleviated by nothing. Associated signs and symptoms: Pertinent positives: abdominal pain, nausea, vomiting. Severity of symptoms: At their worst the symptoms were mild in the emergency department the symptoms are unchanged. The patient has not experienced similar symptoms in the past. 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 - Social history:: Smoking status: Patient denies any tobacco usage or history of. ROS: 21:39 Constitutional: Negative for fever, chills, and weight loss, Eyes: Negative for injury, stephanie pain, redness, and discharge, ENT: Negative for injury, pain, and discharge, Neck: Negative for injury, pain, and swelling, Cardiovascular: Negative for chest pain, palpitations, and edema, Back: Negative for injury and pain, : Negative for injury, bleeding, discharge, and swelling, MS/Extremity: Negative for injury and deformity, Skin: Negative for injury, rash, and discoloration, Neuro: Negative for headache, weakness, numbness, tingling, and seizure. 21:39 Respiratory: Positive for cough. 21:39 Abdomen/GI: Positive for abdominal pain, nausea and vomiting, diarrhea. Exam: 21:39 Constitutional: This is a well developed, well nourished patient who is awake, alert, stephanie and in no acute distress. Head/Face: Normocephalic, atraumatic. Eyes: Pupils equal round and reactive to light, extra-ocular motions intact. Lids and lashes normal. Conjunctiva and sclera are non-icteric and not injected. Cornea within normal limits. Periorbital areas with no swelling, redness, or edema. ENT: Nares patent. No nasal discharge, no septal abnormalities noted. Tympanic membranes are normal and external auditory canals are clear. Oropharynx with no redness, swelling, or masses, exudates, or evidence of obstruction, uvula midline. Mucous membranes moist. Neck: Trachea midline, no thyromegaly or masses palpated, and no cervical lymphadenopathy. Supple, full range of motion without nuchal rigidity, or vertebral point tenderness. No Meningismus. Chest/axilla: Normal chest wall appearance and motion. Nontender with no deformity. No lesions are appreciated. Cardiovascular: Regular rate and rhythm with a normal S1 and S2. No gallops, murmurs, or rubs. Normal PMI, no JVD. No pulse deficits. Respiratory: Lungs have equal breath sounds bilaterally, clear to auscultation and percussion. No rales, rhonchi or wheezes noted. No increased work of breathing, no retractions or nasal flaring. Abdomen/GI: Soft, non-tender, with normal bowel sounds. No distension or tympany. No guarding or rebound. No evidence of tenderness throughout. Back: No spinal tenderness. No costovertebral tenderness. Full range of motion. Female : Normal external genitalia. Skin: Warm, dry with normal turgor. Normal color with no rashes, no lesions, and no evidence of cellulitis. MS/ Extremity: Pulses equal, no cyanosis. Neurovascular intact. Full, normal range of motion. Neuro: Awake and alert, GCS 15, oriented to person, place, time, and situation. Cranial nerves II-XII grossly intact. Motor strength 5/5 in all extremities. Sensory grossly intact. Cerebellar exam normal. Normal gait. Psych: Awake, alert, with orientation to person, place and time. Behavior, mood, and affect are within normal limits. 21:39 Musculoskeletal/extremity: DVT Exam: No signs of deep vein thrombosis. no pain, no swelling, no tenderness, negative Homans' sign noted on exam, no appreciated bluish discoloration, no erythema, no increased warmth. Vital Signs: 21:07 BP 109 / 58; Pulse 85; Resp 15 S; Temp 98(TE); Pulse Ox 100% on R/A; Weight 84.37 kg ca1 (R); Height 5 ft. 2 in. (157.48 cm) (R); 23:00 BP 120 / 78; Pulse 80; Resp 18; Temp 98; Pulse Ox 100% on R/A; mg2 01/29 00:10 BP 115 / 78; Pulse 80; Resp 18; Pulse Ox 100% on R/A; mg2 01:17 BP 121 / 78; Pulse 71; Resp 18; Temp 98; Pulse Ox 100% on R/A; mg2 01/28 21:07 Body Mass Index 34.02 (84.37 kg, 157.48 cm) ca1 MDM: 01/28 21:13 Patient medically screened. kb 21:29 Patient medically screened. stephanie 21:40 Differential diagnosis: Nonspecific abd pain, gastritis, cholecystitis, pancreatitis, stephanie viral gastroenteritis, gastroenteritis. Differential Diagnosis: Bronchitis Influenza Upper Respiratory Infection Viral Syndrome Pneumonia. Data reviewed: vital signs, nurses notes, lab test result(s), EKG, radiologic studies, plain films. Data interpreted: test evaluator: rate is 85 beats/min, rhythm is regular, Pulse oximetry: on room air is 100 %. Test interpretation: by ED physician or midlevel provider: ECG, plain radiologic studies. Counseling: I had a detailed discussion with the patient and/or guardian regarding: the historical points, exam findings, and any diagnostic results supporting the discharge/admit diagnosis, the presence of at least one elevated blood pressure reading (>120/80) during this emergency department visit, lab results, radiology results, the need for outpatient follow up, for definitive care, a family practitioner. 22:03 Medication response: Phenergan markedly relieved the patient's nausea. stephanie 22:42 ED course: non toxic, explained diagnosis. [facility] 01/28 21:38 Order name: Basic Metabolic Panel; Complete Time: 22:38 stephanie 01/28 21:38 Order name: CBC with Diff; Complete Time: 22:38 stephanie 01/28 21:38 Order name: Hepatic Function; Complete Time: 22:38 stephanie 01/28 21:38 Order name: Lipase; Complete Time: 22:38 [facility] 01/28 21:38 Order name: COVID-19 [facility] 01/28 21:38 Order name: Troponin (emerg Dept Use Only); Complete Time: 22:38 [facility] 01/28 21:38 Order name: Chest Single View XRAY [facility] 01/28 21:55 Order name: Urine Microscopic Only; Complete Time: 22:38 [facility] [place] 01/28 21:57 Order name: Urine Dipstick--Ancillary (enter results); Complete Time: 22:38 [facility] 01/28 21:57 Order name: Urine --Ancillary (enter results); Complete Time: 22:38 [facility] 01/28 22:23 Order name: Urine Culture [facility] 01/28 22:42 Order name: Blood Culture Adult (2) [facility] 01/28 22:43 Order name: INCENTIVE SPIROMETRY [facility] 01/28 21:38 Order name: IV Saline Lock; Complete Time: 21:55 [facility] 01/28 21:38 Order name: Labs collected and sent; Complete Time: 21:55 [facility] 01/28 21:38 Order name: Urine Dipstick-Ancillary (obtain specimen); Complete Time: 21:51 [facility] 01/28 21:38 Order name: Urine Test (obtain specimen); Complete Time: 21:51 [facility] 01/28 22:40 Order name: PO challenge: juice; Complete Time: 23:15 [facility] Administered Medications: 22:08 Drug: Phenergan 12.5 mg Route: IVP; Site: right antecubital; [facility] 01/29 01:15 Follow up: Response: No adverse reaction [facility] [place] [place] 01/28 22:09 Drug: NS 0.9% 1000 ml Route: IV; Rate: 1 bolus; Site: right antecubital; [facility] [place] 01/29 01:15 Follow up: Response: No adverse reaction; IV Status: Completed infusion; IV Intake: mg2 1000ml 01/28 23:15 Drug: Zithromax 500 mg Route: IVPB; Infused Over: 1 hrs; Site: right antecubital; mg2 01/29 01:14 Follow up: Response: No adverse reaction; IV Status: Completed infusion [facility] [place] [place] 01/28 23:15 Drug: Rocephin 2 grams Route: IV; Rate: per protocol; Site: right antecubital; [facility] [place] [place] 01/29 01:14 Follow up: Response: No adverse reaction; IV Status: Completed infusion [facility] [place] [place] 01/28 23:15 Drug: NS 0.9% with KCl 20 mEq/L 1000 ml Route: IV; Rate: 500 ml/hr; Site: right mg2 antecubital; 01/29 01:14 Follow up: Response: No adverse reaction; IV Status: Completed infusion mg2 01/28 23:15 Drug: Aspirin 81 mg Route: PO; mg2 01/29 01:14 Follow up: Response: No adverse reaction mg2 01/28 23:16 Drug: Potassium Effervescent Tablet 50 mEq Route: PO; mg2 01/29 01:15 Follow up: Response: No adverse reaction mg2 Disposition: 01/29/20 22:45 Discharged to Home. Impression: Vomiting, Cough, Pneumonia due to other specified bacteria - right upper lobe inf, Trichomoniasis, Urinary tract infection, site not specified, Hypokalemia. - Condition is Stable. - Discharge Instructions: Potassium Content of Foods, Nausea and Vomiting, Adult, Community-Acquired Pneumonia, Adult, Trichomoniasis, Urinary Tract Infection, Adult, Cool Mist Vaporizer, Incentive Spirometer, Nausea and Vomiting, Adult, Cewg-oa-Mwap, Urinary Tract Infection, Adult, Snej-an-Aple, Community-Acquired Pneumonia, Adult, Wvpj-cp-Pydv, Cough, Adult, Cmja-in-Bkxz, Cough, Adult, Hypokalemia. - Prescriptions for promethazine 25 mg Oral Tablet - take 1 tablet by ORAL route every 6 hours As needed; 20 tablet. Flagyl 500 mg Oral Tablet - take 4 tablet by ORAL route one time for 1 day; 4 tablet. Bactrim DS 800- 160 mg Oral Tablet - take 1 tablet by ORAL route every 12 hours for 10 days; 20 tablet. Zithromax 500 mg Oral Tablet - take 1 tablet by ORAL route once daily for 5 days; 5 tablet. - Medication Reconciliation Form, Thank You Letter, Antibiotic Education, Prescription Opioid Use, Work release form form. - Follow up: Private Physician; When: 2 - 3 days; Reason: Recheck today's complaints, Continuance of care, Re-evaluation by your physician. Follow up: Max Rios MD; When: 2 - 3 days; Reason: Recheck today's complaints, Re-evaluation by your physician. - Problem is new. - Symptoms have improved. Signatures: Dispatcher [employer] EDCleo Obrien, DARK ROOM ATTENDANT-C DARK ROOM ATTENDANT-Reno Castro RN RN sg Anderson, Corey, MD MD cha Gardose, Michele, RN RN mg2 Kimber Pagan RN RN ca1 Corrections: (The following items were deleted from the chart) 01/28 22:47 22:45 01/29/2020 22:45 Discharged to Home. Impression: Vomiting; Cough; Pneumonia due stephanie to other specified bacteria - right upper lobe inf; Trichomoniasis; Urinary tract infection, site not specified. Condition is Stable. Discharge Instructions: Nausea and Vomiting, Adult, Cool Mist Vaporizer, Nausea and Vomiting, Adult, Kbnk-tw-Abgn, Cough, Adult, Rhjp-em-Tybe, Cough, Adult. Prescriptions for promethazine 25 mg Oral Tablet - take 1 tablet by ORAL route every 6 hours As needed; 20 tablet. and Forms are Medication Reconciliation Form, Thank You Letter, Antibiotic Education, Prescription Opioid Use. Follow up: Private Physician; When: 2 - 3 days; Reason: Recheck today's complaints, Continuance of care, Re-evaluation by your physician. Problem is new. Symptoms have improved. [facility] 01/29 01:18 01/28 22:47 01/29/2020 22:45 Discharged to Home. Impression: Vomiting; Cough; Pneumonia mg2 due to other specified bacteria - right upper lobe inf; Trichomoniasis; Urinary tract infection, site not specified; Hypokalemia. Condition is Stable. Discharge Instructions: Nausea and Vomiting, Adult, Cool Mist Vaporizer, Nausea and Vomiting, Adult, Kuoi-fw-Gsle, Cough, Adult, Nwoe-bg-Qhfa, Cough, Adult, Community-Acquired Pneumonia, Adult, Trichomoniasis, Urinary Tract Infection, Adult, Urinary Tract Infection, Adult, Ikjg-ar-Ntde, Community-Acquired Pneumonia, Adult, Uobw-ut-Ignf. Prescriptions for promethazine 25 mg Oral Tablet - take 1 tablet by ORAL route every 6 hours As needed; 20 tablet, Flagyl 500 mg Oral Tablet - take 4 tablet by ORAL route one time for 1 day; 4 tablet, Bactrim DS 800-160 mg Oral Tablet - take 1 tablet by ORAL route every 12 hours for 10 days; 20 tablet, Zithromax 500 mg Oral Tablet - take 1 tablet by ORAL route once daily for 5 days; 5 tablet. and Forms are Medication Reconciliation Form, Thank You Letter, Antibiotic Education, Prescription Opioid Use. Follow up: Private Physician; When: 2 - 3 days; Reason: Recheck today's complaints, Continuance of care, Re-evaluation by your physician. Follow up: Max Rios; When: 2 - 3 days; Reason: Recheck today's complaints, Re-evaluation by your physician. Problem is new. Symptoms have improved. [facility] 01/29 01:38 01:18 01/29/2020 22:45 Discharged to Home. Impression: Vomiting; Cough; Pneumonia due sg to other specified bacteria - right upper lobe inf; Trichomoniasis; Urinary tract infection, site not specified; Hypokalemia. Condition is Stable. Discharge Instructions: Nausea and Vomiting, Adult, Cool Mist Vaporizer, Nausea and Vomiting, Adult, Comj-vh-Ydsm, Cough, Adult, Rlxc-nl-Zspg, Cough, Adult, Community-Acquired Pneumonia, Adult, Trichomoniasis, Urinary Tract Infection, Adult, Urinary Tract Infection, Adult, Gixv-og-Nknn, Community-Acquired Pneumonia, Adult, Ndie-ii-Xlwk, Potassium Content of Foods, Incentive Spirometer, Hypokalemia. Prescriptions for promethazine 25 mg Oral Tablet - take 1 tablet by ORAL route every 6 hours As needed; 20 tablet, Flagyl 500 mg Oral Tablet - take 4 tablet by ORAL route one time for 1 day; 4 tablet, Bactrim DS 800-160 mg Oral Tablet - take 1 tablet by ORAL route every 12 hours for 10 days; 20 tablet, Zithromax 500 mg Oral Tablet - take 1 tablet by ORAL route once daily for 5 days; 5 tablet. and Forms are Medication Reconciliation Form, Thank You Letter, Antibiotic Education, Prescription Opioid Use. Follow up: Private Physician; When: 2 - 3 days; Reason: Recheck today's complaints, Continuance of care, Re-evaluation by your physician. Follow up: Max Rios; When: 2 - 3 days; Reason: Recheck today's complaints, Re-evaluation by your physician. Problem is new. Symptoms have improved. mg2
[2020-01-29] MEDS ORDERED: NS KCL 20MEQ 1,000 ML IV ONE (23:02)
[2020-01-29] MEDS ORDERED: POTASSIUM 25 MEQ EFFERV TAB ONE (23:02)
[2020-01-29] MEDS ORDERED: NA CHLORIDE 0.9% 250 ML ONE (23:02)
[2020-01-29] MEDS ORDERED: ASPIRIN 81 MG CHEWABLE TABLET ONE (23:02)
[2020-01-29] MEDS ORDERED: CEFTRIAXONE/SWI 1gm 2 GM/20 ML SYR ONE (23:02)
[2020-01-29] MEDS ORDERED: AZITHROMYCIN 500 MG INJ IVPB ONE (23:03)
[2020-01-30 01:27] VITALS: TEMP 98; O2SAT 100
[2020-01-30 01:31] VITALS: BP 121/78
--- NOTE | 2020-01-30 08:21 | RAD REPORT ---
EXAM DESCRIPTION: RAD - Chest Single View - 01/29/2020 10:55 pm CLINICAL HISTORY: COUGH COMPARISON: None TECHNIQUE: AP portable chest image was obtained 01/29/2020 10:55 pm . FINDINGS: Right upper lobe volume loss is present. There is opacification in the right upper lobe ab utting the minor fissure. Left lung field is clear. Heart and vasculature are normal. No measurable p leural effusion and no pneumothorax. No acute bony abnormality seen. No acute aortic findings suspect ed. IMPRESSION: Small right upper lobe pneumonia.
== END 2020-01-30 01:38 | disposition home or self-care (01) ==
LOC: ER 20:53
DX: U07.1 COVID-19 (principal); J15.8 Pneumonia due to other specified bacteria; N39.0 Urinary tract infection, site not specified; A59.9 Trichomoniasis, unspecified; E87.6 Hypokalemia; R05 Cough; Z88.1 Allergy status to other antibiotic agents; Z88.5 Allergy status to narcotic agent; Z88.8 Allergy status to other drugs, medicaments and biological substances
CPT/HCPCS: 36415; 71045; 80048; 80076; 81003; 81015; 81025; 83690; 84484; 85025; 87040; 87077; 87086; 87088; 87186; 96361; 96365; 96366; 96368; 96375; 99284; J0456; J0696; J2270; J2405; J2550; J7030; J7050; U0001

== ENCOUNTER 2020-07-05 17:24 | Emergency (ER) | payer SELFPAY ==
--- OUTSIDE RECORDS SUMMARY | 2020-07-05 17:26 | XMS REPORT | Continuity of Care Document ---
:1975 Author Organization [facility] t Address [address] [place] [address] Care Team Providers Name Role Phone Marii Syed Attending Clinician Problems This patient has no known problems. Allergies, Adverse Reactions, Alerts This patient has no known allergies or adverse reactions. Medications This patient has no known medications. Procedures This patient has no known procedures. Encounters Start End Encounter Admission Attending Care Care Encounter Source Date/Time Date/Time Type Type Clinicians Facility Department ID 2020-02-02 2020-02-02 Emergency MARY JO Perez [id number] 14:49:37 19:17:00 Rafael Hameed [id number] [place] [id number] [place] [id number] Results This patient has no known results.
[2020-07-05] MEDS ORDERED: METOCLOPRAMIDE 10 MG/2mL INJ ONE (19:36)
[2020-07-05] MEDS ORDERED: DIPHENHYDRAMINE 50 MG/ML VIAL ONE (19:36)
[2020-07-05] MEDS ORDERED: NA CHLORIDE 0.9% 1,000 ML ONE (19:37)
[2020-07-05] MEDS ORDERED: FAMOTIDINE 20 MG/2 ML VIAL IV ONE (19:37)
[2020-07-05] MEDS ORDERED: dexAMETHasone 10 MG/ML VIAL ONE (19:37)
--- NOTE | 2020-07-05 20:57 | ER ---
Nurse's Notes [facility] Name: Yissel Carmona Age: 44 yrs Sex: Female : 1975 Arrival Date: 07/05/2020 Time: 17:28 Bed 5 Private MD: Diagnosis: Migraine Presentation: 07/05 18:31 Chief complaint: Patient states: has hx of migraines , this one started at 5 am, is iw taking topamax with no relief , is vomiting. Coronavirus screen: At this time, the client does not indicate any symptoms associated with coronavirus-19. Ebola Screen: Patient negative for fever greater than or equal to 101.5 degrees Fahrenheit, and additional compatible Ebola Virus Disease symptoms Patient denies exposure to infectious person. Patient denies travel to an Ebola-affected area in the 21 days before illness onset. No symptoms or risks identified at this time. Initial Sepsis Screen: Does the patient meet any 2 criteria? No. Patient's initial sepsis screen is negative. Does the patient have a suspected source of infection? No. Patient's initial sepsis screen is negative. Risk Assessment: Do you want to hurt yourself or someone else? Patient reports no desire to harm self or others. Onset of symptoms was July 05, 2020. 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 Nutritional screening: On. Tuberculosis jb4 screening: Fall Risk None identified. Assessment: 19:05 General: Appears in no apparent distress. uncomfortable, Behavior is calm, cooperative, jb4 appropriate for age. Pain: Complains of pain in Migraine Headache Pain does not radiate. Pain currently is 10 out of 10 on a pain scale. Neuro: Level of Consciousness is awake, alert, obeys commands, Oriented to person, place, time, situation. Cardiovascular: Patient's skin is warm and dry. Respiratory: Airway is patent Respiratory effort is even, unlabored, Respiratory pattern is regular, symmetrical. GI: Abdomen is non-distended, obese, Reports nausea. : No signs and/or symptoms were reported regarding the genitourinary system. EENT: No signs and/or symptoms were reported regarding the EENT system. Derm: Skin is intact, Skin is pink, warm \T\ dry. Musculoskeletal: Circulation, motion, and sensation intact. Range of motion: intact in all extremities. 19:15 Reassessment: Verified order for Reglan with ER provider, instructed to still give jb4 Reglan as ordered. 20:00 Reassessment: Patient appears in no apparent distress at this time. Patient and/or jb4 family updated on plan of care and expected duration. Pain level reassessed. Patient is alert, oriented x 3, equal unlabored respirations, skin warm/dry/pink. 21:12 Reassessment: Patient appears in no apparent distress at this time. Patient and/or jb4 family updated on plan of care and expected duration. Pain level reassessed. Patient is alert, oriented x 3, equal unlabored respirations, skin warm/dry/pink. Patient states feeling better. Vital Signs: 18:48 BP 118 / 69; Pulse 84; Resp 16; Temp 98.0; Pulse Ox 98% on R/A; Weight 85.28 kg; Height iw 5 ft. 2 in. (157.48 cm); Pain 10/10; 20:22 BP 102 / 65; Pulse 85; Resp 18; Pulse Ox 99% on R/A; mg2 20:45 BP 98 / 66; Pulse 87; Resp 16; Pulse Ox 100% on R/A; jb4 18:48 Body Mass Index 34.39 (85.28 kg, 157.48 cm) ED Course: 17:28 Patient arrived in ED. rg4 18:32 Triage completed. iw 18:48 Arm band placed on. iw 18:49 Roc Vasquez PA is PHCP. [facility] 18:49 Silvio Tesfaye MD is Attending Physician. [facility] 19:00 Patient has correct armband on for positive identification. Bed in low position. Call jb4 light in reach. Side rails up X 1. Pulse ox on. NIBP on. 19:10 Abhi Rain, RN is Primary Nurse. jb4 19:15 Inserted saline lock: 20 gauge in right antecubital area, using aseptic technique. jb4 21:14 No provider procedures requiring assistance completed. IV discontinued, intact, jb4 bleeding controlled, No redness/swelling at site. Pressure dressing applied. Administered Medications: 19:20 Drug: Pepcid 20 mg Route: IVP; Site: right antecubital; jb4 19:50 Follow up: Response: No adverse reaction; Marked relief of symptoms jb4 19:20 Drug: Decadron - Dexamethasone 10 mg Route: IVP; Site: right antecubital; jb4 19:50 Follow up: Response: No adverse reaction; Marked relief of symptoms jb4 19:21 Drug: diphenhydrAMINE 25 mg Route: IVP; Site: right antecubital; jb4 19:50 Follow up: Response: No adverse reaction; Marked relief of symptoms jb4 19:23 Drug: NS 0.9% 1000 ml Route: IV; Rate: 1 bolus; Site: right antecubital; jb4 20:30 Follow up: Response: No adverse reaction; Marked relief of symptoms; IV Status: jb4 Completed infusion; IV Intake: 1000ml 19:23 Drug: Reglan 10 mg Route: IVP; Site: right antecubital; jb4 20:30 Follow up: Response: No adverse reaction; Marked relief of symptoms jb4 Intake: 20:30 IV: 1000ml; Total: 1000ml. jb4 Outcome: 20:56 Discharge ordered by . gino 21:14 Discharged to home ambulatory. jb4 21:14 Condition: stable 21:14 Discharge instructions given to patient, Instructed on discharge instructions, follow up and referral plans. medication usage, Demonstrated understanding of instructions, follow-up care, medications, Prescriptions given X 1. 21:15 Patient left the ED. jb4 Signatures: Roc Vasquez PA PA jmm Williams, Irene, RN RN iw Garcia, Rubi rg4 Abhi Rain RN RN jb4 Tashi Weaver RN RN mg2 Corrections: (The following items were deleted from the chart) 18:49 18:48 Pulse 84bpm; Resp 16bpm; Pulse Ox 98% RA; Temp 98.0F; 85.28 kg; Height 5 ft. 2 iw in.; BMI: 34.3; Pain 10/10; iw
--- NOTE | 2020-07-05 20:57 | EDPHYS ---
Physician Documentation [facility] Name: Yissel Carmona Age: 44 yrs Sex: Female : 1975 Arrival Date: 07/05/2020 Time: 17:28 Bed 5 Private MD: ED Physician Silvio Tesfaye HPI: 07/05 18:49 This 44 yrs old Female presents to ER via Ambulatory with complaints of jmm Vomiting, Migraine. 18:49 The patient presents to the emergency department with nausea, vomiting. Onset: The jmm symptoms/episode began/occurred gradually, this morning. Possible causes: migraine. The symptoms are aggravated by nothing. The symptoms are alleviated by nothing. Associated signs and symptoms: Pertinent positives: vomiting. The patient has experienced similar episodes in the past, several times. Patient states this headache is similar to previous migraines. Denies fever. . VALUER: 18:48 LMP N/A - Irregular menses iw Historical: - Allergies: 18:33 Cipro; iw 18:33 Reglan; iw 18:33 Stadol; iw 18:33 tequin; iw 18:33 Toradol; iw 18:33 tramadol; iw 18:33 Zofran; iw 18:33 Demerol; iw - Home Meds: 18:33 Topamax Oral 2 times per day [Active]; iw - PMHx: 18:33 Migraines; one kidney; iw - PSHx: 18:33 Cholecystectomy; Nephrectomy R; iw ROS: 18:49 Constitutional: Negative for fever, chills, and weight loss, Cardiovascular: Negative jmm for chest pain, palpitations, and edema, Respiratory: Negative for shortness of breath, cough, wheezing, and pleuritic chest pain. 18:49 Abdomen/GI: Positive for vomiting. 18:49 Neuro: Positive for headache. 18:49 All other systems are negative. Exam: 18:49 Constitutional: This is a well developed, well nourished patient who is awake, alert, jmm and in no acute distress. Head/Face: atraumatic. Eyes: EOMI, no conjunctival erythema appreciated ENT: Moist Mucus Membranes Neck: Trachea midline, Supple Chest/axilla: Normal chest wall appearance and motion. Cardiovascular: Regular rate and rhythm. No edema appreciated Respiratory: Normal respirations, no respiratory distress appreciated Abdomen/GI: Non distended, soft Back: Normal ROM Skin: General appearance color normal MS/ Extremity: Moves all extremities, no obvious deformities appreciated, no edema noted to the lower extremities Neuro: Awake and alert, normal gait Psych: Behavior is normal, Mood is normal, Patient is cooperative and pleasant Vital Signs: 18:48 BP 118 / 69; Pulse 84; Resp 16; Temp 98.0; Pulse Ox 98% on R/A; Weight 85.28 kg; Height iw 5 ft. 2 in. (157.48 cm); Pain 10/10; 20:22 BP 102 / 65; Pulse 85; Resp 18; Pulse Ox 99% on R/A; mg2 20:45 BP 98 / 66; Pulse 87; Resp 16; Pulse Ox 100% on R/A; jb4 18:48 Body Mass Index 34.39 (85.28 kg, 157.48 cm) iw MDM: 18:49 Patient medically screened. [facility] 20:55 Data reviewed: vital signs, nurses notes. Counseling: I had a detailed discussion with gino the patient and/or guardian regarding: the historical points, exam findings, and any diagnostic results supporting the discharge/admit diagnosis, the need for outpatient follow up, to return to the emergency department if symptoms worsen or persist or if there are any questions or concerns that arise at home. ED course: JALLOH relieved in the ED. Patient is advised to follow up with neuro for reevaluation. Patient is otherwise given strict return precautions. Patient understood and agrees with the plan of care. . 07/05 18:55 Order name: Saline Lock; Complete Time: 19:36 [facility] Administered Medications: 19:20 Drug: Pepcid 20 mg Route: IVP; Site: right antecubital; jb4 19:50 Follow up: Response: No adverse reaction; Marked relief of symptoms jb4 19:20 Drug: Decadron - Dexamethasone 10 mg Route: IVP; Site: right antecubital; jb4 19:50 Follow up: Response: No adverse reaction; Marked relief of symptoms jb4 19:21 Drug: diphenhydrAMINE 25 mg Route: IVP; Site: right antecubital; jb4 19:50 Follow up: Response: No adverse reaction; Marked relief of symptoms jb4 19:23 Drug: NS 0.9% 1000 ml Route: IV; Rate: 1 bolus; Site: right antecubital; jb4 20:30 Follow up: Response: No adverse reaction; Marked relief of symptoms; IV Status: jb4 Completed infusion; IV Intake: 1000ml 19:23 Drug: Reglan 10 mg Route: IVP; Site: right antecubital; jb4 20:30 Follow up: Response: No adverse reaction; Marked relief of symptoms jb4 Disposition: 07/06 14:34 Co-signature as Attending Physician, Silvio Tesfaye MD. rn Disposition: 07/05/20 20:56 Discharged to Home. Impression: Migraine. - Condition is Stable. - Discharge Instructions: Migraine Headache. - Prescriptions for Hydroxyzine HCl 50 mg Oral Tablet - take 1 tablet by ORAL route every 8 hours As needed; 20 tablet. - Medication Reconciliation Form, Thank You Letter, Antibiotic Education, Prescription Opioid Use form. - Follow up: Private Physician; When: 2 - 3 days; Reason: Recheck today's complaints, Continuance of care, Re-evaluation by your physician. Signatures: Roc Vasquez PA PA jmm Williams, Irene, RN RN iw Nieto, Roman, MD MD rn Bryson, James, RN RN jb4 Corrections: (The following items were deleted from the chart) 07/05 21:15 20:56 07/05/2020 20:56 Discharged to Home. Impression: Migraine. Condition is Stable. jb4 Forms are Medication Reconciliation Form, Thank You Letter, Antibiotic Education, Prescription Opioid Use. Follow up: Private Physician; When: 2 - 3 days; Reason: Recheck today's complaints, Continuance of care, Re-evaluation by your physician. gino
[2020-07-07 16:12] VITALS: BP 98/66; O2SAT 100
[2020-07-07 16:25] VITALS: TEMP 98.1
== END 2020-07-05 21:15 | disposition home or self-care (01) ==
LOC: ER 17:24
DX: G43.909 Migraine, unspecified, not intractable, without status migrainosus (principal); Z88.1 Allergy status to other antibiotic agents; Z88.6 Allergy status to analgesic agent; Z88.8 Allergy status to other drugs, medicaments and biological substances
CPT/HCPCS: 96361; 96374; 96375; 99284; J1100; J1200; J2765; J7030

== ENCOUNTER 2020-11-04 08:22 | Emergency (ER) | payer SELFPAY ==
--- OUTSIDE RECORDS SUMMARY | 2020-11-04 08:25 | XMS REPORT | Continuity of Care Document ---
:1975 Author Organization [facility] t Address [address] [place] [address] Care Team Providers Name Role Phone Marii [...] 2020-02-02 Emergency MARY JO Perez [id number] 14:49:37 19:17:00 Rafael Hameed [id number] [place] [id number] [place] [phone] Results This patient has no known results.
[2020-11-04] MEDS ORDERED: PROMETHAZINE INJ 25 MG/ML AMP ONE (09:15)
[2020-11-04] MEDS ORDERED: MEPERIDINE HCL 25 MG/ML SYR ONE ×2 (09:16→10:25)
[2020-11-04] MEDS ORDERED: NA CHLORIDE 0.9% 1,000 ML ONE (09:16)
[2020-11-04] MEDS ORDERED: dexAMETHasone 10 MG/ML VIAL ONE (09:16)
--- NOTE | 2020-11-04 11:34 | EDPHYS ---
Physician Documentation [facility] Name: Yissel Carmona Age: 45 yrs Sex: Female : 1975 Arrival Date: 11/04/2020 Time: 08:24 Bed 18 Private MD: VERONICA OCONNOR ED Physician Silvio Tesfaye HPI: 11/04 08:49 This 45 yrs old Female presents to ER via Ambulatory with complaints of rn Headache. 08:49 The patient complains of pain to the top of head and forehead. The patient describes rn the headache as aching. Onset: The symptoms/episode began/occurred this morning. Associated signs and symptoms: Pertinent negatives: altered mental status, fever, neck stiffness, rash, vision changes, vision loss, vomiting, weakness, vertigo. Severity of symptoms: At its worst the pain was moderate, "similar to past headaches", in the emergency department the pain is unchanged. The symptoms are alleviated by nothing. the symptoms are aggravated by lights. The patient has experienced similar episodes in the past. The patient has not recently seen a physician. Reports migraine that began this morning, states gets these "bad ones" every once in a while, takes Topamax, no new symptoms, no fever/vomiting/focal neuro complaint. No head injury or trauma. Similar to other migraines. . 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 - Social history:: Smoking status: Patient denies any tobacco usage or history of. - Family history:: not pertinent. - Hospitalizations: : No recent hospitalization is reported. ROS: 08:49 Constitutional: Negative for fever, chills, and weight loss, Eyes: Negative for injury, rn pain, redness, and discharge, Neck: Negative for injury, pain, and swelling, Cardiovascular: Negative for chest pain, palpitations, and edema, Respiratory: Negative for shortness of breath, cough, wheezing, and pleuritic chest pain, Abdomen/GI: Negative for abdominal pain, vomiting, diarrhea, and constipation Back: Negative for injury and pain, MS/Extremity: Negative for injury and deformity, Skin: Negative for injury, rash, and discoloration, Neuro: Negative for weakness, numbness, tingling, and seizure. Exam: 08:49 Constitutional: This is a well developed, well nourished patient who is awake, alert, rn and in no acute distress. Ambulatory to room without difficulty or distress. Head/Face: Normocephalic, atraumatic. Eyes: Periorbital areas with no swelling, redness, or edema. Neck: Trachea midline, no thyromegaly or masses palpated, and no cervical lymphadenopathy. Supple, full range of motion without nuchal rigidity, or vertebral point tenderness. No Meningismus. Cardiovascular: Regular rate and rhythm. No pulse deficits. Respiratory: No increased work of breathing, no retractions or nasal flaring. Skin: Warm, dry with normal turgor. Normal color with no rashes, no lesions, and no evidence of cellulitis. MS/ Extremity: Pulses equal, no cyanosis. Neurovascular intact. Full, normal range of motion. Equal circumference. Neuro: Awake and alert, GCS 15, oriented to person, place, time, and situation. Cranial nerves II-XII grossly intact. Motor strength 5/5 in all extremities. Sensory grossly intact. Cerebellar exam normal. Normal gait. Vital Signs: 08:42 BP 120 / 82; Pulse 67; Resp 16; Temp 97.3(TE); Pulse Ox 99% on R/A; Weight 86.18 kg; ss Height 5 ft. 2 in. (157.48 cm); Pain 10/10; 10:16 BP 113 / 66; Pulse 82; Resp 17 S; Pulse Ox 100% on R/A; jd3 11:22 BP 97 / 58; Pulse 85; Resp 17 S; Pulse Ox 100% on R/A; jd3 08:42 Body Mass Index 34.75 (86.18 kg, 157.48 cm) Michelle Coma Score: 11:32 Eye Response: spontaneous(4). Verbal Response: oriented(5). Motor Response: obeys rn commands(6). Total: 15. MDM: 08:41 Patient medically screened. rn 11:32 Differential diagnosis: migraine, tension headache. Data reviewed: vital signs, nurses rn notes, old medical records, and as a result, I will discharge patient. Counseling: I had a detailed discussion with the patient and/or guardian regarding: the historical points, exam findings, and any diagnostic results supporting the discharge/admit diagnosis, the need for outpatient follow up, to return to the emergency department if symptoms worsen or persist or if there are any questions or concerns that arise at home. Response to treatment: the patient's symptoms have markedly improved after treatment, and as a result, I will discharge patient. Special discussion: I discussed with the patient/guardian in detail that at this point there is no indication for admission to the hospital. It is understood, however, that if the symptoms persist or worsen the patient needs to return immediately for re-evaluation. 11/04 08:49 Order name: IV Start; Complete Time: 09:14 rn Administered Medications: 09:14 Drug: NS 0.9% 1000 ml Route: IV; Rate: 1000 ml; Site: right antecubital; jd3 10:00 Follow up: Response: No adverse reaction; IV Status: Completed infusion jd3 09:14 Drug: Demerol (meperidine) 25 mg Route: IVP; Site: right antecubital; jd3 10:00 Follow up: Response: RASS: Alert and Calm (0) jd3 09:15 Drug: Decadron - Dexamethasone 10 mg Route: IVP; Site: right antecubital; jd3 10:00 Follow up: Response: No adverse reaction jd3 09:15 Drug: Phenergan 12.5 mg Route: IVP; Site: right antecubital; jd3 10:00 Follow up: Response: No adverse reaction jd3 10:14 Drug: Demerol (meperidine) 25 mg Route: IVP; Site: right antecubital; jd3 11:00 Follow up: Response: No adverse reaction; RASS: Alert and Calm (0) jd3 Disposition: 11/04/20 11:33 Discharged to Home. Impression: Migraine. - Condition is Stable. - Discharge Instructions: Migraine Headache. - Medication Reconciliation Form, Thank You Letter, Antibiotic Education, Prescription Opioid Use, Work release form form. - Follow up: Private Physician; When: As needed; Reason: Recheck today's complaints, Re-evaluation by your physician. - Problem is an acute exacerbation. - Symptoms have improved. Signatures: Silvio Tesfaye MD MD rn Smirch, Shelby, RN RN ss Davies, Jonathon, RN RN jd3 Corrections: (The following items were deleted from the chart) 11:49 11:33 11/04/2020 11:33 Discharged to Home. Impression: Migraine. Condition is Stable. jd3 Forms are Medication Reconciliation Form, Thank You Letter, Antibiotic Education, Prescription Opioid Use. Follow up: Private Physician; When: As needed; Reason: Recheck today's complaints, Re-evaluation by your physician. Problem is an acute exacerbation. Symptoms have improved. rn
--- NOTE | 2020-11-04 11:34 | ER ---
Nurse's Notes [facility] Name: Yissel Carmona Age: 45 yrs Sex: Female : 1975 Arrival Date: 11/04/2020 Time: 08:24 Bed 18 Private MD: VERONICA OCONNOR Diagnosis: Migraine Presentation: 11/04 08:42 Chief complaint: Patient states: Pt reports migraine that began yesterday, but became ss "full blown" at 0400 this morning. + nausea. Coronavirus screen: Client denies travel out of the [place] in the last 14 days. Ebola Screen: Patient denies exposure to infectious person. Patient denies travel to an Ebola-affected area in the 21 days before illness onset. Initial Sepsis Screen: Does the patient meet any 2 criteria? No. Patient's initial sepsis screen is negative. Does the patient have a suspected source of infection? No. Patient's initial sepsis screen is negative. Risk Assessment: Do you want to hurt yourself or someone else? Patient reports no desire to harm self or others. Onset of symptoms was November 03, 2020. 08:42 Method Of Arrival: Ambulatory ss 08:42 Acuity: NEVAEH 3 ss Triage Assessment: 09:18 Headache History: The patient has had previous headaches and this one is similar to jd3 previous episodes. General: Appears in no apparent distress. comfortable, Behavior is calm, cooperative, appropriate for age. Pain: Complains of pain in head Pain at worst was 10 out of 10 on a pain scale. Pain began gradually, Also complains of nausea. 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 - Social history:: Smoking status: Patient denies any tobacco usage or history of. - Family history:: not pertinent. - Hospitalizations: : No recent hospitalization is reported. Screenin:19 Abuse screen: Denies threats or abuse. Nutritional screening: No deficits noted. jd3 Tuberculosis screening: No symptoms or risk factors identified. Fall Risk IV access (20 points). Ambulatory Aid- None/Bed Rest/Nurse Assist (0 pts). Gait- Normal/Bed Rest/Wheelchair (0 pts) Mental Status- Oriented to own ability (0 pts). Total Wagoner Fall Scale indicates No Risk (0-24 pts). Assessment: 09:16 General: Appears in no apparent distress. uncomfortable, Behavior is calm, cooperative, jd3 appropriate for age. Pain: Complains of pain in head Quality of pain is described as aching, pressure. Neuro: Level of Consciousness is awake, alert, obeys commands, Oriented to person, place, time, situation, Pupils are PERRLA, Denies weakness blurred vision dizziness, numbness. Cardiovascular: Denies chest pain, Capillary refill < 3 seconds Patient's skin is warm and dry. Respiratory: Airway is patent Respiratory effort is even, unlabored, Respiratory pattern is regular, symmetrical. GI: No signs and/or symptoms were reported involving the gastrointestinal system. : No signs and/or symptoms were reported regarding the genitourinary system. EENT: No signs and/or symptoms were reported regarding the EENT system. Derm: Skin is intact, Skin is dry, Skin is normal, Skin temperature is warm. Musculoskeletal: Circulation, motion, and sensation intact. Range of motion: intact in all extremities. 10:15 Reassessment: Patient appears in no apparent distress at this time. No changes from jd3 previously documented assessment. Patient and/or family updated on plan of care and expected duration. Pain level reassessed. Patient is alert, oriented x 3, equal unlabored respirations, skin warm/dry/pink. 11:22 Reassessment: Patient appears in no apparent distress at this time. Patient and/or jd3 family updated on plan of care and expected duration. Pain level reassessed. Patient is alert, oriented x 3, equal unlabored respirations, skin warm/dry/pink. 11:48 Reassessment: Patient appears in no apparent distress at this time. Patient and/or jd3 family updated on plan of care and expected duration. Pain level reassessed. Patient is alert, oriented x 3, equal unlabored respirations, skin warm/dry/pink. Patient denies pain at this time. Patient states feeling better. Vital Signs: 08:42 BP 120 / 82; Pulse 67; Resp 16; Temp 97.3(TE); Pulse Ox 99% on R/A; Weight 86.18 kg; ss Height 5 ft. 2 in. (157.48 cm); Pain 10/10; 10:16 BP 113 / 66; Pulse 82; Resp 17 S; Pulse Ox 100% on R/A; jd3 11:22 BP 97 / 58; Pulse 85; Resp 17 S; Pulse Ox 100% on R/A; jd3 08:42 Body Mass Index 34.75 (86.18 kg, 157.48 cm) ss Clyde Coma Score: 11:32 Eye Response: spontaneous(4). Verbal Response: oriented(5). Motor Response: obeys rn commands(6). Total: 15. ED Course: 08:24 Patient arrived in ED. am2 08:25 VERONICA OCONNOR is Private Physician. am2 08:40 Silvio Tesfaye MD is Attending Physician. rn 08:43 Triage completed. ss 08:43 Arm band placed on right wrist. ss 08:52 Jerzy Escobar, TORRES is Primary Nurse. jd3 09:16 Inserted saline lock: 20 gauge in right antecubital area, using aseptic technique. jd3 09:19 Patient has correct armband on for positive identification. Bed in low position. Call jd3 light in reach. Side rails up X 1. Pulse ox on. NIBP on. 11:48 No provider procedures requiring assistance completed. IV discontinued, intact, jd3 bleeding controlled, No redness/swelling at site. Pressure dressing applied. Administered Medications: 09:14 Drug: NS 0.9% 1000 ml Route: IV; Rate: 1000 ml; Site: right antecubital; jd3 10:00 Follow up: Response: No adverse reaction; IV Status: Completed infusion jd3 09:14 Drug: Demerol (meperidine) 25 mg Route: IVP; Site: right antecubital; jd3 10:00 Follow up: Response: RASS: Alert and Calm (0) jd3 09:15 Drug: Decadron - Dexamethasone 10 mg Route: IVP; Site: right antecubital; jd3 10:00 Follow up: Response: No adverse reaction jd3 09:15 Drug: Phenergan 12.5 mg Route: IVP; Site: right antecubital; jd3 10:00 Follow up: Response: No adverse reaction jd3 10:14 Drug: Demerol (meperidine) 25 mg Route: IVP; Site: right antecubital; jd3 11:00 Follow up: Response: No adverse reaction; RASS: Alert and Calm (0) jd3 Outcome: 11:33 Discharge ordered by . rn 11:48 Discharged to home ambulatory, with friend. jd3 11:48 Condition: stable 11:48 Discharge instructions given to patient, Instructed on discharge instructions, follow up and referral plans. Demonstrated understanding of instructions, follow-up care. 11:49 Patient left the ED. jd3 Signatures: Silvio Tesfaye MD MD rn Smirch, Shelby, RN RN ss Moreno, Amanda am2 Davies, Jonathon, RN RN jd3
[2020-11-04 11:55] VITALS: TEMP 97.3
[2020-11-04 11:56] VITALS: O2SAT 100
[2020-11-04 11:58] VITALS: BP 97/58
== END 2020-11-04 11:49 | disposition home or self-care (01) ==
LOC: ER 08:22
DX: G43.909 Migraine, unspecified, not intractable, without status migrainosus (principal); Z88.1 Allergy status to other antibiotic agents; Z88.5 Allergy status to narcotic agent; Z88.8 Allergy status to other drugs, medicaments and biological substances
CPT/HCPCS: 96361; 96374; 96375; 99283; J1100; J2175; J2550; J7030

== ENCOUNTER 2020-12-27 16:43 | Emergency (ER) | payer SELFPAY ==
[2020-12-27] MEDS ORDERED: dexAMETHasone 10 MG/ML VIAL ONE (18:03)
[2020-12-27] MEDS ORDERED: PROMETHAZINE INJ 25 MG/ML AMP ONE (18:03)
[2020-12-27] MEDS ORDERED: MEPERIDINE HCL 25 MG/ML SYR ONE (18:03)
[2020-12-27] MEDS ORDERED: NA CHLORIDE 0.9% 1,000 ML ONE (18:03)
--- NOTE | 2020-12-27 18:58 | ER ---
Nurse's Notes [facility] Name: Yissel Carmona Age: 45 yrs Sex: Female : 1975 Arrival Date: 12/27/2020 Time: 16:45 Bed 26 Private MD: Diagnosis: Migraine Presentation: 12/27 16:58 Chief complaint: Patient states: Migraine JALLOH with N/V for 2 days. No fever. Coronavirus ll1 screen: Client denies travel out of the [place] in the last 14 days. At this time, the client does not indicate any symptoms associated with coronavirus-19. Ebola Screen: Patient denies travel to an Ebola-affected area in the 21 days before illness onset. Initial Sepsis Screen: Does the patient meet any 2 criteria? No. Patient's initial sepsis screen is negative. Does the patient have a suspected source of infection? Yes: Other: JALLOH with N/V. Risk Assessment: Do you want to hurt yourself or someone else? Patient reports no desire to harm self or others. Onset of symptoms was December 26, 2020. 16:58 Method Of Arrival: Wheelchair ll1 16:58 Acuity: NEVAEH 3 ll1 Triage Assessment: 17:15 Headache History: The patient has had previous headaches and this one is similar to ae4 previous episodes. General: Appears in no apparent distress. Pain: Pain currently is 8 out of 10 on a pain scale. Pain began gradually, 4 hours ago. Also complains of nausea. Neuro: Level of Consciousness is awake, alert, obeys commands. Respiratory: Airway is patent Respiratory effort is even, unlabored, Respiratory pattern is regular, symmetrical. Historical: - Allergies: 16:58 Cipro; ll1 16:58 Reglan; ll1 16:58 Stadol; ll1 16:58 tequin; ll1 16:58 Toradol; ll1 16:58 tramadol; ll1 16:58 Zofran; ll1 - PMHx: 16:58 Migraines; one kidney; ll1 - PSHx: 16:58 Cholecystectomy; Nephrectomy R; ll1 - Immunization history:: Client reports receiving the 2nd dose of the Covid vaccine, Flu vaccine is not up to date. - Social history:: Smoking status: Patient denies any tobacco usage or history of. Screenin:07 Abuse screen: Denies threats or abuse. Nutritional screening: No deficits noted. ae4 Tuberculosis screening: No symptoms or risk factors identified. Fall Risk None identified. Assessment: 17:15 General: Appears in no apparent distress. uncomfortable, Behavior is calm, cooperative, ae4 quiet. Pain: Complains of pain in head, back of head and face. Neuro: Level of Consciousness is awake, alert, obeys commands, Oriented to person, place, time, situation, Appropriate for age. Cardiovascular: Patient's skin is warm and dry. Respiratory: Airway is patent Respiratory effort is even, unlabored, Respiratory pattern is regular, symmetrical. GI: Reports nausea. : No signs and/or symptoms were reported regarding the genitourinary system. EENT: Denies blurred vision photophobia. Derm: No signs and/or symptoms reported regarding the dermatologic system. Skin is pink, warm \T\ dry. Musculoskeletal: No signs and/or symptoms reported regarding the musculoskeletal system. 18:00 Reassessment: Patient appears in no apparent distress at this time. No changes from ae4 previously documented assessment. Patient and/or family updated on plan of care and expected duration. Pain level reassessed. 18:30 Reassessment: Patient appears in no apparent distress at this time. Patient states ae4 feeling better. GI: Reports nausea. 18:45 Reassessment: Patient appears in no apparent distress at this time. Patient and/or ae4 family updated on plan of care and expected duration. Pain level reassessed. Nausea decreased Patient states feeling better. 19:21 Reassessment: Patient and/or family updated on plan of care and expected duration. Pain ae4 level reassessed. Patient states feeling better. Patient states symptoms have improved. Vital Signs: 16:58 Pulse 89; Resp 17; Temp 98.2; Pulse Ox 100% ; Weight 88.45 kg; Height 5 ft. 2 in. ll1 (157.48 cm); Pain 10/10; 16:58 BP 111 / 68; ll1 17:15 BP 118 / 75; Pulse 75; Resp 18; Pulse Ox 99% on R/A; ae4 17:30 BP 118 / 66; Pulse 86; Resp 16; Pulse Ox 99% on R/A; ae4 18:04 BP 115 / 70; Pulse 88; Resp 16; Pulse Ox 99% on R/A; ae4 18:15 BP 111 / 63; Pulse 83; Resp 16; Pulse Ox 100% on R/A; ae4 18:19 BP 107 / 70; Pulse 86; Resp 17; Pulse Ox 99% on R/A; ae4 18:30 BP 107 / 65; Pulse 88; Resp 18; Pulse Ox 99% on R/A; ae4 18:45 BP 96 / 57; Pulse 88; Resp 17; Pulse Ox 99% on R/A; ae4 18:45 BP 118 / 66; Pulse 86; Resp 18; Pulse Ox 100% on R/A; ae4 16:58 Body Mass Index 35.67 (88.45 kg, 157.48 cm) ll1 [place] Coma Score: 18:54 Eye Response: spontaneous(4). Verbal Response: oriented(5). Motor Response: obeys kb commands(6). Total: 15. ED Course: 16:45 Patient arrived in ED. as 16:58 Arm band placed on Patient placed in an exam room, on a stretcher. ll1 17:00 Triage completed. ll1 17:05 Cleo Calhoun FNP-C is [facility]. kb 17:05 Silvio Tesfaye MD is Attending Physician. kb 17:15 Bed in low position. Call light in reach. Side rails up X 1. Pulse ox on. NIBP on. Warm ae4 blanket given. 17:26 Omar Sanders, RN is Primary Nurse. ae4 18:00 Inserted saline lock: 22 gauge in left antecubital area, using aseptic technique. ae4 19:14 No provider procedures requiring assistance completed. ae4 19:27 IV discontinued, intact, bleeding controlled, No redness/swelling at site. Pressure ae4 dressing applied. Administered Medications: 18:00 Drug: NS 0.9% 1000 ml Route: IV; Rate: 1000 ml; Site: left antecubital; ae4 19:30 Follow up: IV Status: Completed infusion; IV Intake: 1000ml ae4 18:00 Drug: Phenergan (promethazine) 12.5 mg Route: IVP; Site: left antecubital; ae4 18:58 Follow up: Response: Nausea is decreased; Patient states she is still less nauseous but ae4 nausea still present. 18:05 Drug: Decadron - Dexamethasone 10 mg Route: IVP; Site: left antecubital; ae4 18:59 Follow up: Response: No adverse reaction ae4 18:10 Drug: Demerol (meperidine) 25 mg Route: IVP; Site: left antecubital; ae4 18:58 Follow up: Response: No adverse reaction; Pain is decreased; RASS: Alert and Calm (0) ae4 18:58 Drug: Benadryl (diphenhydrAMINE) 12.5 mg Route: IVP; Site: left antecubital; ae4 19:29 Follow up: Response: No adverse reaction; Pain is decreased; Patient appears more ae4 relaxed. Intake: 19:30 IV: 1000ml; Total: 1000ml. ae4 Outcome: 18:57 Discharge ordered by . drew 19:26 Discharged to home ambulatory. ae4 19:26 Condition: stable 19:26 Discharge instructions given to patient, Instructed on discharge instructions, follow up and referral plans. Demonstrated understanding of instructions. 19:29 Patient left the ED. ae4 Signatures: Cleo Calhoun, VANCE-C ALTERATION TAILOR-Mickie Steven Andrea, RN RN ae4 Arlette Persaud RN RN ll1
--- NOTE | 2020-12-27 18:58 | EDPHYS ---
Physician Documentation [facility] Name: Yissel Carmona Age: 45 yrs Sex: Female : 1975 Arrival Date: 12/27/2020 Time: 16:45 Bed 26 Private MD: ED Physician Silvio Tesfaye HPI: 12/27 18:55 This 45 yrs old Female presents to ER via Wheelchair with complaints of kb Headache, Nausea/Vomiting. 18:55 The patient complains of pain to the forehead. The patient describes the headache as kb constant. Onset: The symptoms/episode began/occurred this morning. Associated signs and symptoms: Pertinent positives: nausea, vomiting. Severity of symptoms: At its worst the pain was moderate, in the emergency department the pain is unchanged. Headache History: The patient has had previous headaches and this one is similar to previous episodes. The symptoms are alleviated by nothing. the symptoms are aggravated by nothing. The patient has experienced similar episodes in the past. The patient has not recently seen a physician. Historical: - Allergies: 16:58 Cipro; ll1 16:58 Reglan; ll1 16:58 Stadol; ll1 16:58 tequin; ll1 16:58 Toradol; ll1 16:58 tramadol; ll1 16:58 Zofran; ll1 - PMHx: 16:58 Migraines; one kidney; ll1 - PSHx: 16:58 Cholecystectomy; Nephrectomy R; ll1 - Immunization history:: Client reports receiving the 2nd dose of the Covid vaccine, Flu vaccine is not up to date. - Social history:: Smoking status: Patient denies any tobacco usage or history of. ROS: 18:55 Constitutional: Negative for fever, chills, and weight loss. kb 18:55 Abdomen/GI: Positive for nausea and vomiting, Negative for abdominal pain. 18:55 Neuro: Positive for headache. 18:55 All other systems are negative. Exam: 18:55 Constitutional: This is a well developed, well nourished patient who is awake, alert, kb and in no acute distress. Head/Face: Normocephalic, atraumatic. Eyes: Pupils equal round and reactive to light, extra-ocular motions intact. Lids and lashes normal. Conjunctiva and sclera are non-icteric and not injected. Cornea within normal limits. Periorbital areas with no swelling, redness, or edema. ENT: Moist Mucous membranes Respiratory: Respirations even and unlabored. No increased work of breathing, no retractions or nasal flaring. Abdomen/GI: Soft, non-tender. No distention Skin: Warm, dry with normal turgor. Normal color. MS/ Extremity: Pulses equal, no cyanosis. Neurovascular intact. Full, normal range of motion. Neuro: Awake and alert, GCS 15, oriented to person, place, time, and situation. Moves all extremities. Normal gait. Psych: Awake, alert, with orientation to person, place and time. Behavior, mood, and affect are within normal limits. Vital Signs: 16:58 Pulse 89; Resp 17; Temp 98.2; Pulse Ox 100% ; Weight 88.45 kg; Height 5 ft. 2 in. ll1 (157.48 cm); Pain 10/10; 16:58 BP 111 / 68; ll1 17:15 BP 118 / 75; Pulse 75; Resp 18; Pulse Ox 99% on R/A; ae4 17:30 BP 118 / 66; Pulse 86; Resp 16; Pulse Ox 99% on R/A; ae4 18:04 BP 115 / 70; Pulse 88; Resp 16; Pulse Ox 99% on R/A; ae4 18:15 BP 111 / 63; Pulse 83; Resp 16; Pulse Ox 100% on R/A; ae4 18:19 BP 107 / 70; Pulse 86; Resp 17; Pulse Ox 99% on R/A; ae4 18:30 BP 107 / 65; Pulse 88; Resp 18; Pulse Ox 99% on R/A; ae4 18:45 BP 96 / 57; Pulse 88; Resp 17; Pulse Ox 99% on R/A; ae4 18:45 BP 118 / 66; Pulse 86; Resp 18; Pulse Ox 100% on R/A; ae4 16:58 Body Mass Index 35.67 (88.45 kg, 157.48 cm) ll1 [place] Coma Score: 18:54 Eye Response: spontaneous(4). Verbal Response: oriented(5). Motor Response: obeys kb commands(6). Total: 15. MDM: 17:06 Patient medically screened. kb 18:54 Data reviewed: vital signs, nurses notes. Data interpreted: Pulse oximetry: on room air kb is 100 %. Interpretation: normal. Counseling: I had a detailed discussion with the patient and/or guardian regarding: the historical points, exam findings, and any diagnostic results supporting the discharge/admit diagnosis, the need for outpatient follow up, a family practitioner, to return to the emergency department if symptoms worsen or persist or if there are any questions or concerns that arise at home. Response to treatment: the patient's symptoms have resolved after treatment. 12/27 17:11 Order name: IV Start; Complete Time: 18:12 kb Administered Medications: 18:00 Drug: NS 0.9% 1000 ml Route: IV; Rate: 1000 ml; Site: left antecubital; ae4 19:30 Follow up: IV Status: Completed infusion; IV Intake: 1000ml ae4 18:00 Drug: Phenergan (promethazine) 12.5 mg Route: IVP; Site: left antecubital; ae4 18:58 Follow up: Response: Nausea is decreased; Patient states she is still less nauseous but ae4 nausea still present. 18:05 Drug: Decadron - Dexamethasone 10 mg Route: IVP; Site: left antecubital; ae4 18:59 Follow up: Response: No adverse reaction ae4 18:10 Drug: Demerol (meperidine) 25 mg Route: IVP; Site: left antecubital; ae4 18:58 Follow up: Response: No adverse reaction; Pain is decreased; RASS: Alert and Calm (0) ae4 18:58 Drug: Benadryl (diphenhydrAMINE) 12.5 mg Route: IVP; Site: left antecubital; ae4 19:29 Follow up: Response: No adverse reaction; Pain is decreased; Patient appears more ae4 relaxed. Disposition: 12/27/20 18:57 Discharged to Home. Impression: Migraine. - Condition is Stable. - Discharge Instructions: Migraine Headache, [id number]. - Medication Reconciliation Form, Thank You Letter, Antibiotic Education, Prescription Opioid Use, Work release form form. - Follow up: Emergency Department; When: As needed; Reason: Worsening of condition. Follow up: Private Physician; When: 2 - 3 days; Reason: Recheck today's complaints, Continuance of care, Re-evaluation by your physician. Addendum: 12/29/2020 19:26 Co-signature as Attending Physician, Silvio Tesfaye MD. r n Signatures: Cleo Calhoun, SPINDLE CARVER-C SPINDLE CARVER-Ckb Silvio Tesfaye MD MD rn Elliott, Andrea RN RN ae4 Arlette Persaud RN RN ll1 Corrections: (The following items were deleted from the chart) 12/27 19:29 18:57 12/27/2020 18:57 Discharged to Home. Impression: Migraine. Condition is Stable. ae4 Forms are Medication Reconciliation Form, Thank You Letter, Antibiotic Education, Prescription Opioid Use. Follow up: Emergency Department; When: As needed; Reason: Worsening of condition. Follow up: Private Physician; When: 2 - 3 days; Reason: Recheck today's complaints, Continuance of care, Re-evaluation by your physician. kb
[2020-12-27] MEDS ORDERED: DIPHENHYDRAMINE 50 MG/ML VIAL ONE (19:15)
[2020-12-27 19:36] VITALS: TEMP 98.2
[2020-12-27 19:44] VITALS: O2SAT 99
[2020-12-27 19:48] VITALS: BP 96/57
== END 2020-12-27 19:29 | disposition home or self-care (01) ==
LOC: ER 16:43
DX: G43.909 Migraine, unspecified, not intractable, without status migrainosus (principal); Z88.1 Allergy status to other antibiotic agents; Z88.5 Allergy status to narcotic agent; Z88.8 Allergy status to other drugs, medicaments and biological substances
CPT/HCPCS: 96361; 96374; 96375; 99284; J1100; J1200; J2175; J2550; J7030

== ENCOUNTER 2021-09-22 16:42 | Emergency (ER) | payer SELFPAY ==
--- OUTSIDE RECORDS SUMMARY | 2021-09-22 16:46 | XMS REPORT | Continuity of Care Document ---
:1975 Author Organization [facility] t Address [address] [place] [address] Care Team Providers Name Role Phone Miracle Izaguirre Attending Clinician MIRACLE RUTHERFORD Attending Clinician Unavailable Doctor Unassigned, Name Attending Clinician Unavailable Marii Syed Attending Clinician Payers Payer Name Policy Type Policy Number Effective Date Expiration Date [facility] [id number] 2018 CHOICE MEDICAID 00:00:00 Problems Condition Condition Condition Status Onset Resolution Last Treating Co mments Source Name Details Category Date Date Treatment Clinician Date No known No known Disease Unive rs active active ity of problems problems [place] [facility] [place] Allergies, Adverse Reactions, Alerts Allergy Allergy Status Severity Reaction(s) Onset Inactive Treating Comm ents Source Name Type Date Date Clinician Tramadol Propensi Active Rash 2020-0 Univer s ty to 7 ity of adverse 00:00: [place] reaction 00 Medical s Branch Ondanset Propensi Active Rash 2020-0 Univer s yrn (Pf) ty to 7 ity of In adverse 00:00: [place] Dextrose reaction 00 Medica l s Branch Ciproflo Propensi Active Hives 2020-0 Univer s xacin ty to 7 ity of adverse 00:00: [place] reaction 00 Medical s Branch Butorpha Propensi Active Hives 2020-0 Univer s nol ty to 7 ity of Tartrate adverse 00:00: [place] reaction 00 Medical s Branch Ketorola Propensi Active Rash 2020-0 Univer s c ty to 7 ity of Trometha adverse 00:00: [place] mine reaction 00 Medical s Branch CIPROFLO DRUG Active Hives 2019-0 Univers XACIN INGREDI 02-01 ity of 00:00: [place] 00 Medical Branch BUTORPHA DRUG Active Hives 2020-0 Univers NOL INGREDI 02-01 ity of TARTRATE 00:00: [place] 00 Medical Branch KETOROLA DRUG Active Rash 2019-0 Univers C INGREDI 02-01 ity of TROMETHA 00:00: [place] MINE 00 Medical Branch TRAMADOL DRUG Active Rash 2019-0 Univers INGREDI 02-01 ity of 00:00: [place] 00 Medical Branch ONDANSET DRUG Active Rash 2019-0 Univers YRN (PF) 02-01 ity of IN 00:00: [place] DEXTROSE 00 [facility] Social History Social Habit Start Date Stop Date Quantity Comments Source Exposure to Not sure [facility] SARS-CoV-2 ([facility] Sex Assigned At [birth year] [facility] 00:00:00 00:00:00 [facility] Smoking Status Start Date Stop Date Source Unknown if ever smoked [facility] Medications Ordered Filled Start Stop Current Ordering Indication Dosage Frequency Signature Comments Components Source Medication Medication Date Date Medication? Clinician (SIG) Name Name proMETHazin 2020- No 25mg 25 mg, Uni vers e 01-04 Oral, ity of (PHENERGAN) 20:30: 19:35 [place]CE[place] 1 [place] 25 [place] :00 dose, [facility] Medic al mg 01/04/21 at Branch 1530, LISE cephALEXin 2020- No 500mg 500 mg, Un davin (KEFLEX) 01-04 Oral, ity of capsule 500 20:30: 19:35 [place] mg [place] :00 dose, Mon Medical 01/04/21 at Branch 1530, LISE
Re ason for Anti-Infec tive: Documented Infection< br>Documen tomasa Infection Site: Urine
D uration of Therapy: 10 days NaCl 0.9% 2020- No 1000mL at 999 Uni vers (NS) bolus 01-04 mL/hr, ity of infusion 19:15: 19:35 1,000 mL, [place] as 1,000 mL 00 :00 IV Medical Infusion, Branch ONCE, 1 dose, 01/04/21 at 1415, STAT proMETHazin Yes [id number] 25mg Take 1 Univers e 25 mg - tablet by ity of tablet 00:00: mouth [place] 00 every 6 Medical (six) Branch hours as needed for Nausea and Vomiting (N/V). cephALEXin 2020- No [id number] 500mg Take 1 Univers (KEFLEX) 01-04 capsule by ity of 500 mg 00:00: 04:59 mouth 3 [place] capsule 00 :00 (three) Medical times Branch daily for 10 days. proMETHazin 2019- No 12.5mg 12.5 mg, Univers e 02-02 IV ity of (PHENERGAN) 00:45: 23:54 [facility], [place] 12.5 mg in 00 :00 ONCE, 1 Medica l NaCl 0.9% dose, [place] Bran h (NS) 50 mL 02/02/20 at piggyback 1945, 50 mL NaCl 0.9% 2019- No 1000mL at 999 Uni vers (NS) bolus 02-01 mL/hr, ity of infusion 22:30: 23:48 1,000 mL, [place] as 1,000 mL 00 :00 IV Medical Infusion, Branch ONCE, 1 dose, [place] 02/02/20 at 1730, STAT azithromyci 2019- Yes [id number] 250mg Take 1 Univers n 250 mg - tablet by ity of tablet 00:00: mouth 00 daily. Medical Take 500 Branch mg day 1, then 250 mg days 2 to 5. benzonatate 2019- Yes [id number] 100mg Take 1 Univers 100 mg - capsule by ity of capsule 00:00: mouth 3 [place] 00 (three) Medical times Branch daily as needed for Cough. proMETHazin Yes [id number] 25mg Take 1 Univers e 25 mg -19 tablet by ity of tablet 00:00: mouth [place] 00 every 4 Medical (four) Branch hours as needed for Nausea and Vomiting (N/V). azithromyci 2019- Yes [id number] 250mg Take 1 Univers n 250 mg - [id number] tablet by ity of tablet 00:00: mouth [place] 00 daily. Medical Take 500 Branch mg day 1, then 250 mg days 2 to 5. benzonatate 2020-0 Yes [id number] 100mg Take 1 Univers 100 mg 7-19 [id number] capsule by ity of capsule 00:00: mouth 3 [place] 00 (three) Medical times Branch daily as needed for Cough. proMETHazin 2020-0 Yes [id number] 25mg Take 1 Univers e 25 mg 7-19 [id number] tablet by ity of tablet 00:00: mouth [place] 00 every 4 Medical (four) Branch hours as needed for Nausea and Vomiting (N/V). azithromyci 2020-0 Yes [id number] 250mg Take 1 Univers n 250 mg 7-19 [id number] tablet by ity of tablet 00:00: mouth [place] 00 daily. Medical Take 500 Branch mg day 1, then 250 mg days 2 to 5. benzonatate 2020-0 Yes [id number] 100mg Take 1 Univers 100 mg 7-19 [id number] capsule by ity of capsule 00:00: mouth 3 00 (three) Medical times Branch daily as needed for Cough. proMETHazin 2019-0 2020- No [id number] 25mg Take 1 Univers e 25 mg 7-02 01- [id number] tablet by ity of tablet 00:00: 00:00 mouth [place] 00 :00 every 4 Medical (four) Branch hours as needed for Nausea and Vomiting (N/V). Immunizations Ordered Filled Immunization Date Status Comments [facility] e Immunization Name Name SARS-COV-2 COVID-19 2020-12-05 Completed Unive rsity of PFIZER VACCINE 00:00:00 [facility] SARS-COV-2 COVID-19 2020-12-05 Completed Unive rsity of PFIZER VACCINE 00:00:00 [facility] SARS-COV-2 COVID-19 2020-11-07 Completed Unive rsity of PFIZER VACCINE 00:00:00 [facility] SARS-COV-2 COVID-19 2020-11-07 Completed Unive rsity of PFIZER VACCINE 00:00:00 [facility] Vital Signs Vital Name Observation Time Observation Value Comments Source Systolic blood 2021-01-04 19:00:00 109 mm[Hg] Univer sity of pressure [place] [facility] Diastolic blood 2021-01-04 19:00:00 67 mm[Hg] Unive rsity of pressure [place] [facility] Heart rate 2021-01-04 19:00:00 88 /min Universi ty [facility] [place] [facility] Respiratory rate 2021-01-04 19:00:00 19 /min Univ ersity of [place] [facility] Oxygen saturation in 2021-01-04 19:00:00 100 /min University of Arterial blood by [facility] Pulse oximetry Branch Body temperature 2021-01-04 17:31:00 37.17 Carmen Univ ersity [facility] [place] [facility] Body weight 2021-01-04 17:31:00 87.544 kg [facility] [place] [facility] BMI 2021-01-04 17:31:00 35.30 kg/m2 Universi ty of [place] [facility] Systolic blood 2020-02-03 00:13:53 134 mm[Hg] Univer sity of pressure [place] [facility] Diastolic blood 2020-02-03 00:13:53 89 mm[Hg] Unive rsity of pressure [place] [facility] Heart rate 2020-02-03 00:13:53 101 /min [facility]i ty [facility] [place] [facility] Respiratory rate 2020-02-03 00:13:53 20 /min Univ ersity of [place] [facility] Oxygen saturation in 2020-02-03 00:13:53 97 /min University of Arterial blood by [facility] Pulse oximetry Branch Body temperature 2020-02-02 18:46:00 37.83 Carmen Univ ersity of [place] [facility] Body weight 2020-02-02 18:46:00 84.823 kg [facility] [place] [facility] BMI 2020-02-02 18:46:00 34.20 kg/m2 [facility] [place] [facility] Body height 2020-02-02 18:45:00 157.5 cm [facility] [place] [facility] Systolic blood 2020-02-03 00:13:53 134 mm[Hg] Univer sity of pressure [place] [facility] Diastolic blood 2020-02-03 00:13:53 89 mm[Hg] Unive rsity of pressure [place] [facility] Heart rate 2020-02-03 00:13:53 101 /min [facility] [place] [facility] Respiratory rate 2020-02-03 00:13:53 20 /min Univ ers[facility] [place] [facility] Oxygen saturation in 2020-02-03 00:13:53 97 /min University of Arterial blood by [facility] Pulse oximetry Branch Body temperature 2020-02-02 18:46:00 37.83 Carmen [facility] Body weight 2020-02-02 18:46:00 84.823 kg General acute hospital BMI 2020-02-02 18:46:00 34.20 kg/m2 General acute hospital Body height 2020-02-02 18:45:00 157.5 cm General acute hospital Procedures Procedure Date / Time Performed Performing Clinician Sourc e LIPASE 2021-01-04 17:41:00 Gagandeep Rutherford [facility]acle [facility] COMP. METABOLIC PANEL 2021-01-04 17:41:00 Gagandeep Rutherford [facility] ([id number]) [facility] CBC WITH DIFF 2021-01-04 17:41:00 Gagandeep Rutherford [facility] URINALYSIS 2021-01-04 17:41:00 Gagandeep Rutherford [facility] POCT TEST 2021-01-04 17:41:00 Gagandeep Rutherford General acute hospital NOTICE OF PRIVACY 2021-01-04 17:17:35 Doctor Unassigned, No [facility] PRACTICES [facility] CONSENT/REFUSAL FOR 2021-01-04 17:17:20 Doctor Unassigned, No Un [facility] DIAGNOSIS AND Name [facility] TREATMENT XR CHEST 1 VW COVID 2020-02-02 22:20:20 Rafael Perez [facility] CT ABDOMEN PELVIS WO 2020-02-02 22:14:49 Rafael Perez [facility] COMP. METABOLIC PANEL 2020-02-02 21:58:00 [id number] CBC WITH DIFF 2020-02-02 21:58:00 Rafael Perez General acute hospital POCT TEST 2020-02-02 21:58:00 Rafael Perez [facility] URINALYSIS 2020-02-02 21:51:00 Rafael Perez Universi ty of [facility] [place] COVID-19 (ID NOW RAPID 2020-02-02 21:48:00 [facility] Branch NOTICE OF PRIVACY 2020-02-02 18:28:09 Doctor Unassigned, No Univ [facility] Name [facility] Branch CONSENT/REFUSAL FOR 2020-02-02 18:21:41 Doctor Unassigned, No [facility] [place] [facility] DIAGNOSIS AND Name Medical Branch TREATMENT Encounters Start End Encounter Admission Attending Care Care Encounter Source Date/Time Date/Time Type Type Clinicians Facility Department ID 2021-01-04 2021-01-04 Emergency Gagandeep Rutherford [facility] [id number] Univers 12:26:00 15:02:00 Miracle Hameed [id number] i ty of [place] [id number] [place] [address] Branch 2021-01-04 2021-01-04 Emergency X Gagandeep RUTHERFORD [facility] ERT [id number] Univers 12:26:00 12:26:00 ity of [facility] [place] 2021-01-04 2021-01-04 Orders Doctor MENDOZA 1.2.840.114 [id number] Univers 00:00:00 00:00:00 Only Unassigned, KRISTEN [id number] ity of [place] [facility] [id number] [place] [id number] [place] [address] Branch 2020-02-02 2020-02-02 Emergency Ana [facility] 1.2.840.114 [id number] 14:49:37 19:17:00 Rafael Hameed [id number] [place] 4.2.7.2.686 [place] [id number] 2020-02-02 2020-02-02 Emergency Ana [facility] 1.2.840.114 [id number] Univers 14:49:37 19:17:00 Rafael Hameed [id number] ity [id number] [id number] [place] [id number] Branch 2020-02-02 2020-02-02 Emergency X [facility] ERT [id number] Univers 13:20:00 13:20:00 [facility] Results Test Description Test Time Test Comments Results Result Comments Source Complete Metabolic Panel 2021-01-04 18:07:03 Test Item Value Reference Range Interpretation Comme nts NA (test code = 4704632256) 139 mmol/L 135-145 K (test code = 6353538686) 3.6 mmol/L 3.5-5.0 CL (test code = 4672584147) 109 mmol/L 98-108 H CO2 TOTAL (test code = 6407913441) 19 mmol/L 23-31 L AGAP (test code = 6395025097) 2-16 BUN (test code = 9553169187) 10 mg/dL 7-23 GLUCOSE (test code = 8638710938) 112 mg/dL 70-110 H CREATININE (test code = 0.89 mg/dL 0.50-1.04 4491690491) TOTAL BILI (test code = 0.3 mg/dL 0.1-1.8 5794929478) CALCIUM (test code = 5207774517) 8.1 mg/dL 8.6-10.6 L T PROTEIN (test code = 1616839031) 8.1 g/dL 6.3-8.2 ALBUMIN (test code = 7794254357) 4.3 g/dL 3.5-5.0 ALK PHOS (test code = 8453631327) 121 U/L 34-122 ALTv (test code = 1742-6) 22 U/L 5-35 AST(SGOT) (test code = 0913330861) 33 U/L 13-40 eGFR (test code = 6406076902) mL/min/1.73m2 TOMA (test code = TOMA) Association of Glomerular Filtration Rate (GFR) and Staging of Kidney Disease* + +-------- + ------+| GFR (mL/min/1.73 m2) ?| With Kidney Damage ?| ?Without Kidney Damage+ +-- + +| ?>90 ?| ?Stage one ?| ? Normal ?+ +------- + -------+| ?60-89 ?| ?Stage two ?| ? Decreased GFR ? + +-------- + ------+| ?30-59 ?| ?Stage three ?| ? Stage three ? + +-------- + ------+| ?15-29 ?| ?Stage four ? | ? Stage four ?+ +------- + -------+| ?<15 (or dialysis) ? ?| ?Stage five ? | ? Stage five ?+ +------- + -------+ *Each stage assumes the associated GFR level has been in effect for at least three months. ?Stages 1 to 5, with or without kidney disease, indicate chronic kidney disease. Notes: Determination of stages one and two (with eGFR >59mL/min/1.73 m2) requires estimation of kidney damage for at least three months as defined by structural or functional abnormalities of the kidney, manifested by either:Pathological abnormalities or Markers of kidney damage (including abnormalities in the composition of the blood or urine or abnormalities in imaging tests). Lab Interpretation (test code = Abnormal 80677-3) [facility], [id number] 18:06:22 Test Item Value Reference Range Interpretation Comments LIPASE (test code = 9295415884) 65 U/L 0-220 Lab Interpretation (test code = Normal 14349-5) [facility] DallasUrinalysis2021-06-21 18:03:42 Test Item Value Reference Range Interpretation Comments APPEARANCE (test code = Hazy Clear A 6464114192) COLOR (test code = Reta Yellow A 8532492209) PH (test code = 4.8-8.0 2288259392) SP GRAVITY (test code = 1.003-1.030 4637362114) GLU U QUAL (test code = Normal Normal 3200883926) BLOOD (test code = 1+ Negative A 0713298424) KETONES (test code = Negative Negative 2859535919) PROTEIN (test code = 30 mg/dL Negative A 2887-8) UROBILIN (test code = 4.0 mg/dL Normal A 0482019961) BILIRUBIN (test code = Negative Negative 4888852942) NITRITE (test code = Positive Negative A 3867742523) LEUK CHARLES (test code = Negative Negative 4656008900) RBC/HPF (test code = See_Comment H [Autom ated message] 9810903240) The system KSKT generated this result transmit tomasa reference range : 0 - 3 HPF. The refe rence range was not u sed to interpret th is result as normal/abnormal . WBC/HPF (test code = See_Comment H [Autom ated message] 2119043720) The system KSKT generated this result transmit tomasa reference range : 0 - 5 HPF. The refe rence range was not u sed to interpret th is result as normal/abnormal . BACTERIA (test code = Many Negative A 7684986464) MUCOUS (test code = Marked Negative LPF A 6873779743) SQ EPITH (test code = HPF 5428538825) Lab Interpretation (test Abnormal code = 16931-0) [facility] with [id number] 17:53:21 Test Item Value Reference Range Interpretation Comments WBC (test code = See_Comment [Automated message] 6690-2) The system KSKT generated this result transmitted ref erence range: 4.30 - 1 1.10 10*3/?L. The re ference range was not u sed to interpret this result as normal/abnor mal. RBC (test code = See_Comment [Automated message] 789-8) The system KSKT generated this result transmitted ref erence range: 3.93 - 5 .25 10*6/?L. The re ference range was not u sed to interpret this result as normal/abnor mal. HGB (test code = 13.8 g/dL 11.6-15.0 718-7) HCT (test code = 43.2 % 35.7-45.2 4544-3) MCV (test code = 86.6 fL 80.6-95.5 787-2) MCH (test code = 27.7 pg 25.9-32.8 785-6) MCHC (test code = 31.9 g/dL 31.6-35.1 786-4) RDW-SD (test code 48.3 fL 39.0-49.9 = 48015-0) RDW-CV (test code 15.2 % 12.0-15.5 = 788-0) PLT (test code = See_Comment [Automated message] 777-3) The system KSKT generated this result transmitted ref erence range: 166 - 35 8 10*3/?L. The re ference range was not u sed to interpret this result as normal/abnor mal. MPV (test code = 9.5 fL 9.5-12.9 94015-8) NRBC/100 WBC (test See_Comment [Automat ed message] code = 0575298262) The syste m which generated this result transmitted ref erence range: 0.0 - 10 .0 /100 WBCs. The refer ence range was not u sed to interpret this result as normal/abnor mal. NRBC x10^3 (test <0.01 See_Comment [Automated message] code = 6215000820) The syste m which generated this result transmitted ref erence range: 10*3/?L. The reference range was not used to interpr et this result as normal/abnormal . GRAN MAT (NEUT) % 67.1 % (test code = 770-8) IMM GRAN % (test 0.50 % code = 3281155496) LYMPH % (test code 21.1 % = 736-9) MONO % (test code 10.6 % = 5905-5) EOS % (test code = 0.5 % 713-8) BASO % (test code 0.2 % = 706-2) GRAN MAT 5.75 10*3/uL 1.88-7.09 x10^3(ANC) (test code = 6652297597) IMM GRAN x10^3 0.04 10*3/uL 0.00-0.06 (test code = 0653687269) LYMPH x10^3 (test 1.81 10*3/uL 1.32-3.29 code = 731-0) MONO x10^3 (test 0.91 10*3/uL 0.33-0.92 code = 742-7) EOS x10^3 (test 0.04 10*3/uL 0.03-0.39 code = 711-2) BASO x10^3 (test <0.03 0.01-0.07 code = 704-7) [facility] [id number] 17:41:00 Test Item Value Reference Range Interpretation Comments POCT PREG (test code = 1605) negative On board controls acceptable with C present Line (test code = 3574) Lab Interpretation (test code = Normal 49233-2) [facility] (ID NOW RAPID TESTING)2020-02-02 23:10:00 Test Item Value Reference Range Interpretation Comments SARS-CoV-2 Rapid ID NOW Not Detected Not Detected (test code = 43462-9) TOMA (test code = TOMA) ID NOW COVID-19 Assay is an isothermal nucleic acid amplification test intended for the qualitative detection of nucleic acid from SARS-CoV-2 viral RNA in nasopharyngeal (OR[employer] DEVELOPER) specimens. It is used under Emergency Use Authorization (EUA) by FDA. The limit of detection (LOD) of the assay is 125 Genome Equivalents/mL. A positive result is indicative of the presence of SARS-CoV-2 RNA. ?Clinical correlation with patient history and other diagnostic information is necessary to determine patient infection status. A negative (Not Detected) result does not preclude SARS-CoV-2 infection. In patients with clinical symptoms and other tests that are consistent with SARS-CoV-2 infection, negative results should be treated as presumptive negative and a new specimen should be tested with alternative PCR molecular test. Invalid: Please collect a new specimen for repeat patient testing if clinically indicated. Lab Interpretation Normal (test code = 45658-6) [facility]2020-07-19 23:05:00 Test Item Value Reference Range Interpretation Comments APPEARANCE (test code = Hazy Clear A 0038675176) COLOR (test code = Yellow Yellow 7909436411) PH (test code = 4.8-8.0 2800837435) SP GRAVITY (test code = 1.003-1.030 7840134953) GLU U QUAL (test code = Normal Normal 4492849229) BLOOD (test code = Negative Negative 5316327486) KETONES (test code = Negative Negative 0746682842) PROTEIN (test code = Negative Negative 2887-8) UROBILIN (test code = Normal Normal 1558411679) BILIRUBIN (test code = Negative Negative 7218933348) NITRITE (test code = Negative Negative 9986672550) LEUK CHARLES (test code = Negative Negative 9273201675) RBC/HPF (test code = See_Comment H [Autom ated message] 8294173148) The system KSKT generated this result transmitted ref erence range: 0 - 3 HP F. The reference range was not used to int erpret this result as normal/abnormal . WBC/HPF (test code = See_Comment [Autom ated message] 5570924120) The system KSKT generated this result transmitted ref erence range: 0 - 5 HP F. The reference range was not used to int erpret this result as normal/abnormal . BACTERIA (test code = Few Negative A 1251583216) MUCOUS (test code = Moderate Negative LPF A 7636212467) SQ EPITH (test code = HPF 1329553710) HYAL CAST (test code = See_Comment [Aut omated message] 4167125406) The system KSKT generated this result transmitted ref erence range: <=2 LPF. The reference range was not used to int erpret this result as normal/abnormal . Lab Interpretation (test Abnormal code = 43710-4) [facility]. METABOLIC PANEL (56462)2020-02-02 22:52:00 Test Item Value Reference Range Interpretation Comments NA (test code = 140 mmol/L 135-145 7721776939) K (test code = 3.8 mmol/L 3.5-5 6418782741) CL (test code = 111 mmol/L 98-108 H 4220976693) CO2 TOTAL (test code = 20 mmol/L 23-31 L 8904568220) AGAP (test code = 2-16 5374431397) BUN (test code = 10 mg/dL 7-23 0059545311) GLUCOSE (test code = 94 mg/dL 70-110 0363595499) CREATININE (test code = 1.11 mg/dL 0.5-1.04 H 9430509493) TOTAL BILI (test code = 0.4 mg/dL 0.1-1.9 8484599758) CALCIUM (test code = 8.8 mg/dL 8.6-10.6 4892274312) T PROTEIN (test code = 8.4 g/dL 6.3-8.2 H 2966014542) ALBUMIN (test code = 4.4 g/dL 3.5-5 1910477047) ALK PHOS (test code = 97 U/L 34-122 1025901888) ALTv (test code = 36 U/L 5-35 H 1742-6) AST(SGOT) (test code = 44 U/L 13-40 H 3924721512) eGFR Calculation mL/min/1.73m2 (Non-) (test code = 2766146054) eGFR Calculation mL/min/1.73m2 () (test code = 3383659561) TOMA (test code = TOMA) Association of Glomerular Filtration Rate (GFR) and Staging of Kidney Disease* + --+ --+ ------+| GFR (mL/min/1.73 m2) ?| With Kidney Damage ?| ?Without Kidney Damage+ --------+ --------+ +| ?>90 ?| ?Stage one ?| ? Normal ?+ ---+ ---+ -------+| ?60-89 ?| ?Stage two ?| ? Decreased GFR ? + --+ --+ ------+| ?30-59 ?| ?Stage three ?| ? Stage three ? + --+ --+ ------+| ?15-29 ?| ?Stage four ? | ? Stage four ?+ ---+ ---+ -------+| ?<15 (or dialysis) ? ?| ?Stage five ? | ? Stage five ?+ ---+ ---+ -------+ *Each stage assumes the associated GFR level has been in effect for at least three months. ?Stages 1 to 5, with or without kidney disease, indicate chronic kidney disease. Notes: Determination of stages one and two (with eGFR >59mL/min/1.73 m2) requires estimation of kidney damage for at least three months as defined by structural or functional abnormalities of the kidney, manifested by either:Pathological abnormalities or Markers of kidney damage (including abnormalities in the composition of the blood or urine or abnormalities in imaging tests). Lab Interpretation Abnormal (test code = 21467-7) [facility] ABDOMEN PELVIS WO [id number] 22:35:331. No definite acute intra-abdominal or intrapelvic pathology on thislimited noncontrast study.2. Left nephrolithiasis without evidence of hydronephrosis. Changes ofright nephrectomy3. Diverticulosis of the colon without evidence of diverticulitis4. Hepatic steatosis5. Fibroids EXAM: CT SCAN OF THE ABDOMEN AND PELVIS WITHOUT CONTRAST HISTORY: Abd pain, unspecified, non-acute Nausea, vomiting TECHNIQUE:3 mm axial images are obtained from diaphragmatic domes tosymphysis pubis without oral or intravenous contrast. Sagittal and coronalreformation is carried out. COMPARISON: None Radiation Dose: DLP of 501 mGy-cm. FINDINGS: Small focus of atelectasis is seen adjacent to the right heart border. Alsoseen is a small groundglass opacity in the left lower lobe (2:10). Nopleural effusion stress is seen. Heart size is normal. Liver is normal in size but demonstrates decreased attenuation compared tothe spleen. The gallbladder is removed. No bile duct dilation isappreciated. Pancreas is grossly normal. No ductal dilation is seen. Spleen is normal insize. A small accessory splenule is noted measuring 6 to 7 mm in size. Adrenal glands are normal in size. No nodules are seen. The right kidney has been removed. Left kidney is normal in size. A small 4mm calcification is seen in the inferior pole of the left kidney. Nohydronephrosis is noted. Abdominal aorta is normal in caliber. No free fluid or free airisidentified in the abdomen. No enlarged lymph nodes are seen in theretroperitoneum or mesentery. Bowel loops are normal in caliber. There is no evidence of bowelobstruction. The appendix is not visualized and may have been removed. Afew scattered diverticula are seen in the descending colon. The uterus is somewhat lobular in appearance. A small low attenuationmasses present on the right side of the fundal portion of the uterusmeasuring approximately 1 cm. The urinary bladder is decompressed and isnot adequately evaluated. The ovaries appear grossly normal. No free fluidis seen within the pelvis. No suspicious abnormality of the bones is seen. [facility], Radiant Results Inft User - 02/02/2020 5:36 PM CDTEXAM: CT SCAN OF THE ABDOMEN AND PELVIS WITHOUT CONTRASTHISTORY: Abd pain, unspecified, non-acute Nausea, vomitingTECHNIQUE:3 mm axial images are obtained from diaphragmatic domes tosymphysis pubis without oral or intravenous contrast. Sagittal and coronalreformation is carried out.COMPARISON: NoneRadiation Dose: DLP of 501 mGy-cm. FINDINGS:Small focus of atelectasis is seen adjacent to the right heart border. Alsoseen is a small groundglass opacity in the left lower lobe (2:10). Nopleural effusion stress is seen. Heart size is normal.Liver is normal in size but demonstrates decreased attenuationcompared tothe spleen. The gallbladder is removed. No bile duct dilation isappreciated.Pancreas is grossly normal. No ductal dilation is seen. Spleen is normal insize. A small accessory splenule is noted measuring 6 to 7 mm in size.Adrenal glands are normal in size. No nodules are seen.The right kidney has been removed. Left kidney is normal in size. A small 4mm calcification is seen in the inferior pole of the left kidney. Nohydronephrosis is noted.Abdominal aorta is normal in caliber. No free fluid or free air isidentified in the abdomen. No enlarged lymph nodes are seen in theretroperitoneum or mesentery.Bowel loops are normal in caliber. There is no evidence of bowelobstruction. The appendix is not visualized and may have been removed. Afew scattered diverticula are seen in the descending colon.The uterus is somewhat lobular in appearance. A small low attenuationmasses present on the right side of the fundal portion of the uterusmeasuring approximately 1 cm. The urinary bladder is decompressed and isnot adequately evaluated. The ovaries appear grossly normal. No free fluidis seen within the pelvis.No suspicious abnormality of the bones is seen.IMPRESSION1. No definite acute intra-abdominal or intrapelvic pathology on thislimited noncontrast study.2. Left nephrolithiasis without evidence of hydronephrosis. Changes ofright nephrectomy3. Diverticulosis of the colon without evidence of diverticulitis4. Hepatic steatosis5. FibroidsUnSeton Medical Center Harker HeightsCB WITH DIFF 2020-02-02 22:29:00 Test Item Value Reference Range Interpretation Comments WBC (test code = See_Comment [Automated message] 6690-2) The system KSKT generated this result transmitted ref erence range: 4.30 - 1 1.10 10*3/?L. The re ference range was not u sed to interpret this result as normal/abnor mal. RBC (test code = See_Comment [Automated message] 789-8) The system KSKT generated this result transmitted ref erence range: 3.93 - 5 .25 10*6/?L. The re ference range was not u sed to interpret this result as normal/abnor mal. HGB (test code = 13.9 g/dL 11.6-15 718-7) HCT (test code = 42.0 % 35.7-45.2 4544-3) MCV (test code = 86.2 fL 80.6-95.5 787-2) MCH (test code = 28.5 pg 25.9-32.8 785-6) MCHC (test code = 33.1 g/dL 31.6-35.1 786-4) RDW-SD (test code 45.1 fL 39-49.9 = 28532-9) RDW-CV (test code 14.2 % 12-15.5 = 788-0) PLT (test code = See_Comment [Automated message] 777-3) The system whic h generated this result transmitted ref erence range: 166 - 35 8 10*3/?L. The re ference range was not u sed to interpret this result as normal/abnor mal. MPV (test code = 9.7 fL 9.5-12.9 41852-9) NRBC/100 WBC (test See_Comment [Automat ed message] code = 6577993103) The syste m which generated this result transmitted ref erence range: 0.0 - 10 .0 /100 WBCs. The refer ence range was not u sed to interpret this result as normal/abnor mal. NRBC x10^3 (test <0.01 See_Comment [Automated message] code = 5227376870) The syste m which generated this result transmitted ref erence range: 10*3/?L. The reference range was not used to interpr et this result as normal/abnormal . GRAN MAT (NEUT) % 59.9 % (test code = 770-8) IMM GRAN % (test 0.50 % code = 6998516228) LYMPH % (test code 29.0 % = 736-9) MONO % (test code 9.4 % = 5905-5) EOS % (test code = 0.9 % 713-8) BASO % (test code 0.3 % = 706-2) GRAN MAT 4.70 10*3/uL 1.88-7.09 x10^3(ANC) (test code = 1277015545) IMM GRAN x10^3 0.04 10*3/uL 0-0.06 (test code = 2863464854) LYMPH x10^3 (test 2.28 10*3/uL 1.32-3.29 code = 731-0) MONO x10^3 (test 0.74 10*3/uL 0.33-0.92 code = 742-7) EOS x10^3 (test 0.07 10*3/uL 0.03-0.39 code = 711-2) BASO x10^3 (test <0.03 0.01-0.07 code = 704-7) [facility] 1 VW [id number] 22:28:10 1. Abnormal changes in the right upper lobe suggestive of pneumonia,including COVID-19 pneumonia. Disclaimer: Generally, the findings on chest imaging in COVID-19 are notspecific, and overlap with other infections, including influenza, H1N1,SARS and MERS.According to the Centers for Disease Control (CDC) and the [employer], viral testing remains the only specific method of diagnosiseven if CXR or CT findings are suggestive of COVID-19. PROCEDURE: CHEST XRAY 1 view, CLINICAL INDICATION: cough COMPARISON: None FINDINGS: Lungs: Abnormal opacity is seen in the right upper lobe. Remainder of thelungs is clear. Pleura: No pleural effusion or pneumothorax is seen. The heart is normalinsize. No acute bony abnormality. [facility], Radiant Results Inft User - 02/02/2020 5:29 PM CDTPROCEDURE: CHEST XRAY 1 view, CLINICAL INDICATION: cough COMPARISON: NoneFINDINGS:Lungs: Abnormal opacity is seen in the right upper lobe. Remainder of thelungs is clear.Pleura: No pleural effusion or pneumothorax is seen. The heart is normal insize.No acute bony abnormality.IMPRESSION1. Abnormal changes in the right upper lobe suggestive of pneumonia,including COVID-19 pneumonia.Disclaimer: Generally, the findings on chest imaging in COVID-19 are notspecific, and overlap with other infections, including influenza, H1N1,SARS and MERS.According to the Centers for Disease Control (CDC) and the [employer], viral testing remains the only specific method of diagnosiseven if CXR or CT findings are suggestive of COVID-19.[facility] DallasPOCT [id number] 21:58:00 Test Item Value Reference Range Interpretation Comments POCT PREG (test code = 1605) negative On board controls acceptable with present C Line (test code = 3574) POCT PREG LOT # (test code = 3575) [id number] POCT PREG TEST DATE (test 02-13-2021 code = 3576) Lab Interpretation (test code = Normal 24825-6) [facility] [place]"
[2021-09-22 17:13] LABS: Urine Blood 1+ (Negative); Urine Glucose Negative (Negative); Urine Protein Negative (Negative); Urine Specific Gravity >=1.030 (1.005-1.030)
[2021-09-22 17:37] LABS: Hematocrit 39.1 % (36.0-45.0); Lymphocytes % 40.6 % (15.3-44.8); MPV 7.7 fL (7.6-11.3); RBC Red Blood Cell Count 4.64 M/uL (3.86-4.86)
[2021-09-22] MEDS ORDERED: NA CHLORIDE 0.9% 1,000 ML ONE (17:38)
[2021-09-22] MEDS ORDERED: MORPHINE 4 MG/ML SYR ONE (17:38)
[2021-09-22] MEDS ORDERED: PROMETHAZINE INJ 25 MG/ML AMP ONE (17:38)
[2021-09-22] MEDS ORDERED: CEFTRIAXONE 1000 MG/VIAL ONE (17:38)
[2021-09-22 18:16] LABS: Urine Bacteria >50 /HPF (<20); Urine RBC <5 /HPF (NONE SEEN)
[2021-09-22] MEDS ORDERED: DIPHENHYDRAMINE 50 MG/ML VIAL ONE (18:16)
--- NOTE | 2021-09-22 18:16 | RAD REPORT ---
EXAM DESCRIPTION: CT - Stone Protocol - 09/22/2021 6:05 pm CLINICAL HISTORY: FLANK PAIN COMPARISON: CT ABDOMEN PELVIS WO CONTRAST dated 03/11/2014 TECHNIQUE: Axial 3 mm thick images were obtained without oral or IV contrast. The [id number] span s the entirety of the system including uppermost abdomen and lung bases. All CT scans are performed using dose optimization technique as appropriate and may include automated exposure control or mA/KV adjustment according to patient size. FINDINGS: No hydronephrosis is present and no obstructing ureteral calculi. There is a 5 millimeter nonobstructing calyx calculus lower pole left kidney. Right kidney is absent. No suspicious renal mas ses. Isodense masses and pyelonephritis are not excluded on a stone protocol CT scan. No significant adrenal finding. No urinary bladder suspicious finding. A 13 millimeter low-density round focus right fundus of the uterus is probably a small fibroid. This was not clearly seen in 2013. No suspicious o varian finding. Imaged portions of the liver, spleen and pancreas show no suspicious findings on non-contrast imaging . The liver attenuation does indicate fatty infiltration. Cholecystectomy clips are present with no b iliary tree dilatation. No suspicious bowel findings. No appendicitis. Left-sided diverticulosis is very minimal. No hernia, mass or bulky lymphadenopathy noted. No free air, free fluid or inflammatory stranding. No significant bony abnormality. IMPRESSION: No hydronephrosis, obstructing calculus or other acute finding. There is a 5 mm nonob structing calculus lower pole left kidney. Status post right nephrectomy. Isodense masses and pyelonephritis are not excluded on stone protocol technique. No acute GI or [employer] process. Round low-density 13 mm mass right-side uterine fundus is probably a smal l fibroid that has developed since 2013.
[2021-09-22 18:23] LABS: ALT/SGPT 53 U/L (12-78); AST/SGOT 44 U/L (15-37); Albumin 3.6 g/dL (3.4-5.0); Alkaline Phosphatase 105 U/L (45-117); BUN Blood Urea Nitrogen 13 mg/dL (7-18); Bicarbonate 22 mmol/L (21-32); Bilirubin Total 0.2 mg/dL (0.2-1.0); Glucose Level 124 mg/dL (74-106); Lipase 114 U/L (73-393); Potassium 3.6 mmol/L (3.5-5.1); Protein, Total 8.1 g/dL (6.4-8.2); Sodium Level 139 mmol/L (136-145)
[2021-09-22 18:25] LABS: Bilirubin Direct < 0.1 mg/dL (0-0.2)
--- NOTE | 2021-09-22 19:05 | ER ---
Nurse's Notes [facility] [place], [place] Name: Yissel Carmona Age: 45 yrs Sex: Female : 1975 Arrival Date: 09/22/2021 Time: 16:45 Bed 12 Private MD: Diagnosis: UTI/ Urinary tract infection, site not specified Presentation: 09/22 16:48 Chief complaint: Patient states: left lower back pain X 2 days - N/V. Coronavirus ld1 screen: At this time, the client does not indicate any symptoms associated with coronavirus-19. Ebola Screen: No symptoms or risks identified at this time. Initial Sepsis Screen: Does the patient meet any 2 criteria? No. Patient's initial sepsis screen is negative. Does the patient have a suspected source of infection? No. Patient's initial sepsis screen is negative. Risk Assessment: Do you want to hurt yourself or someone else? Patient reports no desire to harm self or others. Onset of symptoms was September 22, 2021. 16:48 Method Of Arrival: Ambulatory ld1 16:48 Acuity: NEVAEH 4 ld1 Triage Assessment: 16:48 General: Appears in no apparent distress. comfortable, Behavior is calm, cooperative, ld1 appropriate for age. Pain: Complains of pain in back Pain does not radiate. Pain currently is 8 out of 10 on a pain scale. Quality of pain is described as throbbing. Neuro: Level of Consciousness is awake, alert, obeys commands, Oriented to person, place, time, situation. Respiratory: Airway is patent Respiratory effort is even, unlabored. Musculoskeletal: Capillary refill < 3 seconds, Reports pain in back. 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 - Social history:: Smoking status: Patient denies any tobacco usage or history of. Patient/guardian denies using alcohol. Screenin:30 Abuse screen: Denies threats or abuse. Nutritional screening: No deficits noted. ss7 Tuberculosis screening: No symptoms or risk factors identified. Fall Risk IV access (20 points). Assessment: 17:28 General: Appears uncomfortable, Behavior is cooperative, appropriate for age, anxious. ss7 Pain: Complains of pain in back. Neuro: Level of Consciousness is awake, alert, obeys commands, Oriented to person, place, time, situation. Cardiovascular: Heart tones S1 S2. Respiratory: Breath sounds are clear bilaterally. GI: Abdomen is non-distended, obese, Bowel sounds present X 4 quads. Abdomen is tender to palpation in suprapubic area Reports lower abdominal pain, nausea, vomiting. : Urine is cloudy, CVA tenderness noted on left Reports urinary frequency. EENT: No deficits noted. Derm: No deficits noted. Musculoskeletal: No deficits noted. 18:23 Reassessment: Pt c/o itching and mild rash to right forearm after administration of ss7 Rocephin. AGUILA Wiseman notified and given verbal order for benadryl 25mg ivp. . Vital Signs: 16:48 BP 141 / 129; Pulse 100; Resp 20; Temp 97.9(TE); Pulse Ox 99% on R/A; Weight 90.72 kg; ld1 Height 5 ft. 2 in. (157.48 cm); Pain 10/10; 18:31 BP 124 / 84; Pulse 88; Resp 18; Pulse Ox 98% on R/A; ss7 19:18 BP 124 / 76; Pulse 74; Resp 18; Pulse Ox 100% on R/A; ss7 16:48 Body Mass Index 36.58 (90.72 kg, 157.48 cm) ld1 ED Course: 16:45 Patient arrived in ED. kz 16:48 Arm band placed on right wrist. ld1 16:51 Triage completed. ld1 16:53 Yasmani Wiseman PA is PHCP. cp 16:53 Yasmani Calvillo MD is Attending Physician. cp 17:28 Sunshine Perez RN is Primary Nurse. ss7 17:30 Patient has correct armband on for positive identification. Bed in low position. Call 7 light in reach. 17:30 No provider procedures requiring assistance completed. Inserted saline lock: 22 gauge ss7 in left forearm, using aseptic technique. 17:31 CBC with Diff Sent. ss7 17:31 Hepatic Function Sent. ss7 17:31 Lipase Sent. ss7 17:31 Basic Metabolic Panel Sent. ss7 17:31 Urine Microscopic Only Sent. ss7 17:32 Procalcitonin Sent. ss7 17:32 Basic Metabolic Panel Sent. ss7 17:32 CBC with Diff Sent. ss7 17:32 Hepatic Function Sent. ss7 17:32 Lipase Sent. ss7 17:49 Procalcitonin Sent. ss7 18:04 CT Stone Protocol In Process Unspecified. EDMS 18:22 Urine --Ancillary (enter results) Sent. ss7 18:22 Urine Culture Sent. ss7 19:19 IV discontinued, intact. ss7 Administered Medications: 17:40 Drug: morphine 4 mg Route: IVP; Site: right forearm; 7 17:40 Drug: Phenergan (promethazine) 12.5 mg Route: IVP; Site: right forearm; ss7 17:40 Drug: NS 0.9% 1000 ml Route: IV; Rate: 1 bolus; Site: right forearm; ss7 17:52 Drug: Rocephin (cefTRIAXone) 1 grams Route: IV; Rate: calculated rate; Site: right ss7 forearm; 18:32 Drug: Benadryl (diphenhydrAMINE) 25 mg Route: IVP; Site: right forearm; ss7 19:18 Drug: Augmentin (Amoxicillin-Clavulanate) 875 mg Route: PO; 7 Outcome: 19:04 Discharge ordered by . triston 19:19 Discharged to home 7 19:19 Condition: good 19:19 Discharge instructions given to patient, Instructed on discharge instructions, follow up and referral plans. Demonstrated understanding of instructions, follow-up care, medications, Prescriptions given X 4. 19:32 Patient left the ED. tw5 Signatures: Dispatcher [employer] EDMS Yasmani Wiseman PA PA cp Dibbern, Lauren, RN RN ld1 Mariah Campbell tw5 Sunshine Perez RN RN ss7 Alize Colon
--- NOTE | 2021-09-22 19:05 | EDPHYS ---
Physician Documentation [facility] Name: Yissel Carmona Age: 45 yrs Sex: Female : 1975 Arrival Date: 09/22/2021 Time: 16:45 Bed 12 Private MD: HEATHER Physician Yasmani Calvillo HPI: 09/22 17:00 This 45 yrs old Female presents to ER via Ambulatory with complaints of Back cp Pain, Nausea/Vomiting. 17:00 The patient complains of pain in the left flank. The pain radiates to the abdomen. cp 17:00 Onset: The symptoms/episode began/occurred 2 day(s) ago. cp 17:00 Associated signs and symptoms: Pertinent positives: nausea, vomiting, Pertinent cp negatives: diarrhea, fever, headache, pain radiating to the lower extremities. Severity of pain: in the emergency department the pain is unchanged despite home interventions. 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 - Social history:: Smoking status: Patient denies any tobacco usage or history of. Patient/guardian denies using alcohol. ROS: 17:05 Constitutional: Negative for body aches, chills, fever, poor PO intake. cp 17:05 Eyes: Negative for injury, pain, redness, and discharge. cp 17:05 ENT: Negative for ear pain, sore throat, difficulty swallowing, difficulty handling secretions. 17:05 Cardiovascular: Negative for chest pain, edema, palpitations. 17:05 Respiratory: Negative for cough, shortness of breath, wheezing. 17:05 Abdomen/GI: Positive for abdominal pain, nausea and vomiting, Negative for diarrhea, constipation, black/tarry stool, rectal bleeding. 17:05 Back: Positive for flank pain, on the left. 17:05 Neuro: Negative for altered mental status, headache, weakness. 17:05 All other systems are negative. Exam: 17:10 Constitutional: The patient appears in no acute distress, alert, awake, non-toxic, well cp developed, well nourished, uncomfortable. 17:10 Head/Face: Normocephalic, atraumatic. cp 17:10 Eyes: Periorbital structures: appear normal, Conjunctiva: normal, no exudate, no injection, Sclera: no appreciated abnormality, Lids and lashes: appear normal, bilaterally. 17:10 ENT: External ear(s): are unremarkable, Nose: is normal, Mouth: Lips: moist, Oral mucosa: moist, Posterior pharynx: Airway: no evidence of obstruction, patent. 17:10 Chest/axilla: Inspection: normal. 17:10 Cardiovascular: Rate: tachycardic, Rhythm: regular, Edema: is not appreciated, JVD: is not appreciated. 17:10 Respiratory: the patient does not display signs of respiratory distress, Respirations: normal, no use of accessory muscles, no retractions, labored breathing, is not present, Breath sounds: are clear throughout, no decreased breath sounds. 17:10 Abdomen/GI: Inspection: abdomen appears normal, Bowel sounds: active, all quadrants, Palpation: soft, in all quadrants, moderate abdominal tenderness, in the posterior aspect of left lateral abdomen, anterior aspect of left lateral abdomen, left upper quadrant and left lower quadrant, rebound tenderness, is not appreciated, involuntary guarding, is not appreciated. 17:10 Back: pain, that is moderate, of the left low back and left mid back, ROM is painful, with all movement. 17:10 Neuro: Orientation: to person, place \T\ time. Mentation: is normal, Motor: moves all fours, strength is normal, Sensation: is normal. Vital Signs: 16:48 BP 141 / 129; Pulse 100; Resp 20; Temp 97.9(TE); Pulse Ox 99% on R/A; Weight 90.72 kg; ld1 Height 5 ft. 2 in. (157.48 cm); Pain 10/10; 18:31 BP 124 / 84; Pulse 88; Resp 18; Pulse Ox 98% on R/A; ss7 19:18 BP 124 / 76; Pulse 74; Resp 18; Pulse Ox 100% on R/A; ss7 16:48 Body Mass Index 36.58 (90.72 kg, 157.48 cm) ld1 MDM: 16:54 Patient medically screened. cp 19:04 Data reviewed: vital signs, nurses notes, lab test result(s), radiologic studies, CT cp scan. 19:04 Counseling: I had a detailed discussion with the patient and/or guardian regarding: the cp historical points, exam findings, and any diagnostic results supporting the discharge/admit diagnosis, lab results, radiology results, the need for outpatient follow up, a family practitioner, to return to the emergency department if symptoms worsen or persist or if there are any questions or concerns that arise at home. Response to treatment: the patient's symptoms have markedly improved after treatment, and as a result, I will discharge patient. ED course: VSS. Pain and nausea markedly improved. Patient appears non-toxic. Will discharge to home for continued monitoring. 03 16:54 Order name: Urine Microscopic Only; Complete Time: 18:21 cp 09/22 18:21 Interpretation: Normal except: UWBC 5-10; UBACT >50. cp 09/22 17:13 Order name: Urine Dipstick-Ancillary; Complete Time: 17:27 EDID 09/22 18:23 Interpretation: Normal except: UBLD 1+; U NIT Positive; UESTR Trace. cp 09/22 17:29 Order name: Basic Metabolic Panel; Complete Time: 18:55 cp 09/22 18:59 Interpretation: Normal except: CL 112; GLUC 124; GFR 53; CA 8.2. cp 09/22 17:29 Order name: CBC with Diff; Complete Time: 18:02 cp 09/22 18:02 Interpretation: Normal except: RDW 15.4. cp 09/22 17:29 Order name: Hepatic Function; Complete Time: 18:55 cp 09/22 17:29 Order name: Lipase; Complete Time: 18:55 cp 09/22 17:29 Order name: CT Stone Protocol; Complete Time: 18:21 cp 09/22 18:22 Interpretation: Report reviewed. cp 09/22 17:29 Order name: Procalcitonin; Complete Time: 18:55 cp 09/22 18:08 Order name: Urine --Ancillary (enter results) bd 09/22 18:18 Order name: Urine Culture EDID 09/22 16:54 Order name: Urine Dipstick-Ancillary (obtain specimen); Complete Time: 17:31 cp 09/22 16:54 Order name: Urine Test (obtain specimen); Complete Time: 17:31 cp 09/22 17:29 Order name: IV Saline Lock; Complete Time: 17:31 cp 09/22 17:29 Order name: Labs collected and sent; Complete Time: 17:31 cp 09/22 19:03 Order name: PO challenge; Complete Time: 19:18 cp Administered Medications: 17:40 Drug: morphine 4 mg Route: IVP; Site: right forearm; ss7 17:40 Drug: Phenergan (promethazine) 12.5 mg Route: IVP; Site: right forearm; ss7 17:40 Drug: NS 0.9% 1000 ml Route: IV; Rate: 1 bolus; Site: right forearm; ss7 17:52 Drug: Rocephin (cefTRIAXone) 1 grams Route: IV; Rate: calculated rate; Site: right ss7 forearm; 18:32 Drug: Benadryl (diphenhydrAMINE) 25 mg Route: IVP; Site: right forearm; ss7 19:18 Drug: Augmentin (Amoxicillin-Clavulanate) 875 mg Route: PO; ss7 Disposition Summary: 09/22/21 19:04 Discharge Ordered Location: Home cp Problem: new cp Symptoms: have improved cp Condition: Stable cp Diagnosis - UTI/ Urinary tract infection, site not specified cp Followup: cp - With: Private Physician - When: 2 - 3 days - Reason: Recheck today's complaints Discharge Instructions: - Form - Excuse from Work, School, or Physical Activity ds4 - Discharge Summary Sheet cp - Urinary Tract Infection, Adult cp Forms: - Medication Reconciliation Form cp - Thank You Letter cp - Antibiotic Education cp - Prescription Opioid Use cp Prescriptions: - Augmentin 875-125 mg Oral Tablet - take 1 tablet by ORAL route every 12 hours for 10 days; 20 tablet; Refills: 0, cp Product Selection Permitted - promethazine 25 mg Oral Tablet - take 1 tablet by ORAL route every 6 hours As needed; 20 tablet; Refills: 0, cp Product Selection Permitted - Cyclobenzaprine 10 mg Oral Tablet - take 1 tablet by ORAL route every 8 hours As needed; 15 tablet; Refills: 0, cp Product Selection Permitted - Tylenol-Codeine #3 300 mg-30 mg Oral - take 2 tablet by ORAL route every 8-10 hours; 12 tablet; Refills: 0, Product cp Selection Permitted Addendum: 09/26/2021 18:23 Co-signature as Attending Physician, Yasmani Calvillo MD I agree with the assessment and c walker plan of care. Signatures: Dispatcher [employer] EDID Yasmani Calvillo MD MD cha Page, Corey, PA PA cp Shireen Porter, RN RN ld1 Sunshine Perez RN RN ss7 Corrections: (The following items were deleted from the chart) 09/22 18:59 18:56 Normal except: CL 112; GLUC 124; GFR 53. cp cp 09/23 02:20 09/22 18:03 The patient complains of pain in the left flank, cp cp 09/23 02:20 09/22 18:03 The pain radiates to the abdomen, cp cp 09/23 02:22 0308 17:10 Constitutional: The patient appears in no acute distress, alert, awake, cp non-toxic, well developed, well nourished, uncomfortable, cp
[2021-09-22] MEDS ORDERED: AMOX/K CLAV 875 MG TAB ONE (19:13)
[2021-09-22 19:46] VITALS: TEMP 97.9
[2021-09-22 19:49] VITALS: BP 124/76; O2SAT 100
[2021-09-22 20:45] LABS: Urine Specific Gravity/Preg >1.030 (1.005-1.030)
== END 2021-09-22 19:32 | disposition home or self-care (01) ==
LOC: ER 16:42
DX: N39.0 Urinary tract infection, site not specified (principal); R11.2 Nausea with vomiting, unspecified; Z90.5 Acquired absence of kidney; Z88.1 Allergy status to other antibiotic agents; Z88.5 Allergy status to narcotic agent; Z88.6 Allergy status to analgesic agent; Z88.8 Allergy status to other drugs, medicaments and biological substances
CPT/HCPCS: 36415; 74176; 76377; 80048; 80076; 81003; 81015; 81025; 83690; 84145; 85025; 87077; 87086; 87088; 87186; 96374; 96375; 99284; J1200; J2550; J7030

== ENCOUNTER 2022-04-05 22:08 | Emergency (ER) | payer SELFPAY ==
--- OUTSIDE RECORDS SUMMARY | 2022-04-05 22:13 | XMS REPORT | Continuity of Care Document ---
:1975 Author Organization [facility] t Address [address] [place] [address] Care Team Providers Name Role Phone Estrellita Leavitt Primary Care Physician [phone] Gagandeep Izaguirre Attending Clinician Gagandeep RUTHERFORD Attending Clinician Unavailable Doctor Unassigned, [place] Attending Clinician Unavailable Rafael Syed Attending Clinician Payers Payer Name Policy Type Policy Number Effective Date Expiration Date [facility] [id number] 2018 [facility] MEDICAID 00:00:00 Problems Condition Condition Condition Status Onset Resolution Last Treating Co mments Source Name Details Category Date Date Treatment Clinician Date No known No known Disease Unive rs active active ity of problems problems [facility] [place] Allergies, Adverse Reactions, Alerts Allergy Allergy Status Severity Reaction(s) Onset Inactive Treating Comm ents Source Name Type Date Date Clinician n Propensi Active ty to 5-19 adverse 00:00: reaction 00 to drug Cipro - Propensi Active Oral ty to 3-05 adverse 00:00: reaction 00 to drug Tramadol Propensi Active Rash 2019-0 Univer s ty to 7 ity of adverse 00:00: [place] reaction 00 Medical s Branch Ondanset Propensi Active Rash 0 Univer s yrn (Pf) ty to 7 ity of In adverse 00:00: [place] Dextrose reaction 00 Medica l s Branch Ciproflo Propensi Active Hives Univer s xacin ty to 7-19 ity of adverse 00:00: [place] reaction 00 Medical s Branch Butorpha Propensi Active Hives 2020-0 Univer s nol ty to 7-19 ity of Tartrate adverse 00:00: [place] reaction 00 Medical s Branch Ketorola Propensi Active Rash 2020-0 Univer s c ty to 7-19 ity of Trometha adverse 00:00: [place] mine reaction 00 Medical s Branch CIPROFLO DRUG Active Hives 2020-0 Univers XACIN INGREDI 7-19 ity of 00:00: [place] 00 Medical Branch BUTORPHA DRUG Active Hives 2020-0 Univers NOL INGREDI 7-19 ity of TARTRATE 00:00: [place] 00 Medical Branch KETOROLA DRUG Active Rash 2020-0 Univers C INGREDI 7-19 ity of TROMETHA 00:00: [place] MINE 00 Medical Branch TRAMADOL DRUG Active Rash 2020-0 Univers INGREDI 7-19 ity of 00:00: [place] 00 Medical Branch ONDANSET DRUG Active Rash 2020-0 Univers YRN (PF) 7-19 ity of IN 00:00: [place] DEXTROSE 00 Medical Branch Stadol Propensi Active 2019-0 ty to 1-16 adverse 00:00: reaction 00 to drug Social History Social Habit Start Date Stop Date Quantity Comments Source Exposure to Not sure [facility] SARS-CoV-2 (event[facility] Sex Assigned At [birth year] [facility] 00:00:00 00:00:00 [facility] [place] Smoking Status Start Date Stop Date Source Unknown if ever smoked [facility] Medications Ordered Filled Start Stop Current Ordering Indication Dosage Frequency Signature Comments Components Source Medication Medication Date Date Medication? Clinician (SIG) Name Name Dose No Unknown 5-10 00:00: 00 Dose 2021-0 No Unknown 5-10 00:00: 00 Dose 2021-0 No Unknown 5-10 00:00: 00 topiramate 2021-0 No 1mg 200 mg 5-09 tablet 00:00: 00 Bactrim DS 2021-0 No 1mg 800 mg-160 5-09 mg tablet 00:00: 00 amitriptyli 2021-0 No 1mg ne 100 mg 5-09 tablet 00:00: 00 rizatriptan 2021-0 No 1mg 5 mg tablet 5-09 00:00: 00 Dose 2022-0 No Unknown 3-23 00:00: 00 Dose 2022-0 No Unknown 3-23 00:00: 00 Dose 2022-0 No Unknown 3-08 00:00: 00 Dose 2022-0 No Unknown 3-08 00:00: 00 Dose 2022-0 No Unknown 3-08 00:00: 00 Dose 2022-0 No Unknown 3-08 00:00: 00 Dose 2022-0 No Unknown 3-08 00:00: 00 Dose 2022-0 No Unknown 3-08 00:00: 00 Dose 2022-0 No Unknown 3-08 00:00: 00 Dose 2022-0 No Unknown 3-08 00:00: 00 Dose 2022-0 No Unknown 3-05 00:00: 00 Dose 2022-0 No Unknown 3-05 00:00: 00 Dose 2022-0 No Unknown 3-05 00:00: 00 Dose 2022-0 No Unknown 3-05 00:00: 00 Dose 2022-0 No Unknown 3-05 00:00: 00 Dose 2022-0 No Unknown 3-05 00:00: 00 Dose 2022-0 No Unknown 3-05 00:00: 00 Dose 2022-0 No Unknown 3-05 00:00: 00 Dose 2022-0 No Unknown 3-05 00:00: 00 Dose 2022-0 No Unknown 3-05 00:00: 00 Dose 2022-0 No Unknown 3-05 00:00: 00 Dose 2022-0 No Unknown 3-05 00:00: 00 Dose 2022-0 No Unknown 3-05 00:00: 00 Dose 2022-0 No Unknown 3-05 00:00: 00 Dose 2022-0 No Unknown 3-05 00:00: 00 Dose 2022-0 No Unknown 3-05 00:00: 00 Dose 2022-0 No Unknown 3-05 00:00: 00 Dose 2022-0 No Unknown 3-05 00:00: 00 Dose 2022-0 No Unknown 3-05 00:00: 00 Dose 2022-0 No Unknown 3-05 00:00: 00 Dose 2022-0 No Unknown 3-05 00:00: 00 Dose 2022-0 No Unknown 3-05 00:00: 00 Dose 2022-0 No Unknown 3-05 00:00: 00 Dose 2022-0 No Unknown 3-05 00:00: 00 Dose 2022-0 No Unknown 3-05 00:00: 00 Dose 2022-0 No Unknown 3-05 00:00: 00 Dose 2022-0 No Unknown 3-05 00:00: 00 Dose 2022-0 No Unknown 3-05 00:00: 00 Dose 2022-0 No Unknown 3-05 00:00: 00 Dose 2022-0 No Unknown 3-05 00:00: 00 Dose 2022-0 No Unknown 3-05 00:00: 00 Dose 2022-0 No Unknown 3-05 00:00: 00 Dose 2022-0 No Unknown 3-05 00:00: 00 Dose 2022-0 No Unknown 3-05 00:00: 00 Dose 2022-0 No Unknown 3-05 00:00: 00 Dose 2022-0 No Unknown 3-05 00:00: 00 Dose 2022-0 No Unknown 3-05 00:00: 00 Dose 2022-0 No Unknown 3-05 00:00: 00 Dose 2022-0 No Unknown 3-05 00:00: 00 Dose 2022-0 No Unknown 3-05 00:00: 00 Dose 2022-0 No Unknown 3-05 00:00: 00 Dose 2022-0 No Unknown 3-05 00:00: 00 Dose 2022-0 No Unknown 3-05 00:00: 00 Dose 2022-0 No Unknown 3-05 00:00: 00 Dose 2022-0 No Unknown 3-05 00:00: 00 Dose 2022-0 No Unknown 3-05 00:00: 00 Dose 2022-0 No Unknown 3-05 00:00: 00 Dose 2022-0 No Unknown 3-05 00:00: 00 Dose 2022-0 No Unknown 3-05 00:00: 00 Dose 2022-0 No Unknown 3-05 00:00: 00 Dose 2022-0 No Unknown 3-05 00:00: 00 Dose 2022-0 No Unknown 3-05 00:00: 00 Dose 2022-0 No Unknown 3-05 00:00: 00 Dose 2022-0 No Unknown 3-05 00:00: 00 Dose 2022-0 No Unknown 3-05 00:00: 00 Dose 2022-0 No Unknown 3-05 00:00: 00 Dose 2022-0 No Unknown 3-05 00:00: 00 Dose 2022-0 No Unknown 3-05 00:00: 00 Dose 2022-0 No Unknown 3-05 00:00: 00 Dose 2022-0 No Unknown 3-05 00:00: 00 Dose 2022-0 No Unknown 3-05 00:00: 00 Dose 2022-0 No Unknown 3-05 00:00: 00 Dose 2022-0 No Unknown 3-05 00:00: 00 Dose 2022-0 No Unknown 3-05 00:00: 00 Dose 2022-0 No Unknown 3-05 00:00: 00 Dose 2022-0 No Unknown 3-05 00:00: 00 Dose 2022-0 No Unknown 3-05 00:00: 00 Dose 2022-0 No Unknown 3-05 00:00: 00 sulfamethox 2-0 No 1mg azole 800 2-08 mg-trimetho 00:00: prim 160 mg 00 tablet cyclobenzap 2021-0 No 1mg rine 10 mg 2-08 tablet 00:00: 00 ibuprofen 2-0 No 1mg 800 mg 2-08 tablet 00:00: 00 topiramate 1-1 No 1mg 200 mg 1-30 tablet 00:00: 00 amitriptyli 2020-1 No 1mg ne 100 mg 1-30 tablet 00:00: 00 Dose 2020-1 No Unknown 1-30 00:00: 00 rizatriptan 1-0 No 1mg 5 mg tablet 8-20 00:00: 00 topiramate 1-0 No 1mg 200 mg 8-19 tablet 00:00: 00 amitriptyli 1-0 No 1mg ne 100 mg 8-19 tablet 00:00: 00 rizatriptan 2020-0 No 1mg 5 mg tablet 8-19 00:00: 00 promethazin 1-0 No 1mg e 25 mg 8-19 tablet 00:00: 00 proMETHazin 1-0 2020- No 25mg 25 mg, Uni vers e 01-04 Oral, ity of (PHENERGAN) 20:30: 19:35 [place] 25 [place] :[place] dose, Mon Medic al mg 01/04/21 at Branch 1530, LISE cephALEXin 2021-0 2021- No 500mg 500 mg, Un davin (KEFLEX) 01-0421 Oral, ity of capsule 500 20:30: 19:35 [place] :[place] dose, [facility] Medical 01/04/21 at Branch 1530, LISE
Re ason for Anti-Infec tive: Documented Infection< br>Documen tomasa Infection Site: Urine
D uration of Therapy: 10 days NaCl 0.9% 2020- No 1000mL at 999 Uni vers (NS) bolus 01-04 mL/hr, ity of infusion 19:15: 19:35 1,000 mL, Jose Luis as 1,000 mL 00 :00 IV Medical Infusion, [place] ONCE, 1 dose, [facility] 01/04/21 at 1415, STAT proMETHazin Yes [id number] 25mg Take 1 Univers e 25 mg 01-04 tablet by ity of tablet 00:00: mouth [place] 00 every 6 Medical (six) Branch hours as needed for Nausea and Vomiting (N/V). cephALEXin 2020- No [id number] 500mg Take 1 Univers (KEFLEX) 01-04 0702 capsule by ity of 500 mg 00:00: 04:59 mouth 3 [place] capsule 00 :00 (three) Medical times Branch daily for 10 days. Vitamin D3 No 1(1,000 25 mcg 5-28 unit) (1,000 00:00: unit) 00 capsule cetirizine No 1mg 10 mg 5-25 tablet 00:00: 00 topiramate 0 No 1mg 200 mg 5-13 tablet 00:00: 00 amitriptyli 0 No 1mg ne 100 mg 5-13 tablet 00:00: 00 promethazin 0 No 1mg e 25 mg 5-13 tablet 00:00: 00 topiramate 0 No 1mg 200 mg 2-10 tablet 00:00: 00 amitriptyli 0 No 1mg ne 100 mg 2-05 tablet 00:00: 00 topiramate 0 No 1mg XR 150 mg 2-05 capsule 00:00: darlin palmer 00 tended release 24 hr metronidazo 2020-1 No 1mg le 500 mg 2-14 tablet 00:00: 00 topiramate 2019-1 No 1mg 50 mg 2-10 tablet 00:00: 00 amitriptyli 2019-1 No 1mg ne 100 mg 2-10 tablet 00:00: 00 topiramate 2020-0 No 1mg 50 mg 8-22 tablet 00:00: 00 amitriptyli 2019-0 No 1mg ne 100 mg 8-22 tablet 00:00: 00 promethazin 2019-0 No 1mg e 25 mg 8-22 tablet 00:00: 00 omeprazole 2019-0 No 1mg 40 mg 8-22 capsule,del 00:00: ayed 00 release omeprazole 2019-0 No 1mg 40 mg 7-23 capsule,del 00:00: ayed 00 release proMETHazin 2019-0 2019- No 12.5mg 12.5 mg, Univers e 02-02 IV ity of (PHENERGAN) 00:45: 23:54 [place], [place] 12.5 mg in 00 :00 ONCE, 1 Medica l NaCl 0.9% dose, Lane Bran [facility] (NS) 50 mL 02/02/20 at piggyback 1945, 50 mL NaCl 0.9% 2020- No 1000mL at 999 Uni vers (NS) bolus 02-01 mL/hr, ity of infusion 22:30: 23:48 1,000 mL, Jose Luis as 1,000 mL 00 :00 IV Medical Infusion, [place] ONCE, 1 dose, Lane 02/02/20 at 1730, STAT azithromyci 2020-0 Yes [id number] 250mg Take 1 Univers n 250 mg 7-19 tablet by ity of tablet 00:00: mouth [place] 00 daily. Medical Take 500 Branch mg day 1, then 250 mg days 2 to 5. benzonatate 2020-0 Yes [id number] 100mg Take 1 Univers 100 mg 7-19 capsule by ity of capsule 00:00: mouth 3 [place] 00 (three) Medical times Branch daily as needed for Cough. proMETHazin 2020-0 Yes [id number] 25mg Take 1 Univers e 25 mg 7-19 tablet by ity of tablet 00:00: mouth [place] 00 every 4 Medical (four) Branch hours as needed for Nausea and Vomiting (N/V). azithromyci 2020-0 Yes [id number] 250mg Take 1 Univers n 250 mg 7- [id number] tablet by ity of tablet 00:00: mouth [place] 00 daily. Medical Take 500 Branch mg day 1, then 250 mg days 2 to 5. benzonatate 2020-0 Yes [id number] 100mg Take 1 Univers 100 mg 7- [id number] capsule by ity of capsule 00:00: mouth 3 [place] 00 (three) Medical times Branch daily as needed for Cough. proMETHazin 2020-0 Yes [id number] 25mg Take 1 Univers e 25 mg 7- [id number] tablet by ity of tablet 00:00: mouth [place] 00 every 4 Medical (four) Branch hours as needed for Nausea and Vomiting (N/V). azithromyci 2020-0 Yes [id number] 250mg Take 1 Univers n 250 mg 7- [id number] tablet by ity of tablet 00:00: mouth [place] 00 daily. Medical Take 500 Branch mg day 1, then 250 mg days 2 to 5. benzonatate 2020-0 Yes [id number] 100mg Take 1 Univers 100 mg 7- [id number] capsule by ity of capsule 00:00: mouth 3 [place] 00 (three) Medical times Branch daily as needed for Cough. proMETHazin 2020-0 2020- No [id number] 25mg Take 1 Univers e 25 mg 7-02 01- [id number] tablet by ity of tablet 00:00: 00:00 mouth [place] 00 :00 every 4 Medical (four) Branch hours as needed for Nausea and Vomiting (N/V). topiramate 2020-0 No 1mg 50 mg 5-12 tablet 00:00: 00 amitriptyli 2020-0 No 1mg ne 100 mg 5-12 tablet 00:00: 00 Tricor 48 2019-0 No 1mg mg tablet 01-14 00:00: 00 amitriptyli 2019-0 No 1mg ne 25 mg 6-28 tablet 00:00: 00 topiramate 2019-0 No 1mg 50 mg 6-28 tablet 00:00: 00 amitriptyli 2019-0 No 1mg ne 100 mg 6-28 tablet 00:00: 00 mirtazapine 2019-0 No 1mg 45 mg 6-28 tablet 00:00: 00 amitriptyli 2019-0 No 1mg ne 100 mg 2-20 tablet 00:00: 00 terbinafine 2019-0 No 1mg HCl 250 mg 2-20 tablet 00:00: 00 mirtazapine 2019-0 No 1mg 45 mg 2-20 tablet 00:00: 00 mirtazapine 2019-0 No 1mg 30 mg 1-23 tablet 00:00: 00 amitriptyli 2019-0 No 1mg ne 100 mg 1-16 tablet 00:00: 00 Immunizations Ordered Filled Immunization Date Status Comments [facility] e Immunization Name Name SARS-COV-2 COVID-19 2020-12-05 Completed Unive rsity of PFIZER VACCINE 00:00:00 [facility] SARS-COV-2 COVID-19 2020-12-05 Completed Unive rsity of PFIZER VACCINE 00:00:00 [facility] SARS-COV-2 COVID-19 2020-11-07 Completed Unive rsity of PFIZER VACCINE 00:00:00 [facility] SARS-COV-2 COVID-19 2020-11-07 Completed Unive rsity of PFIZER VACCINE 00:00:00 [facility] Influenza, 2018-09-05 Completed injectable 00:00:00 Vital Signs Vital Name Observation Time Observation Value Comments Source Oxygen saturation in 2021-01-04 19:00:00 100 /min [facility] Arterial blood by [facility] Pulse oximetry [place] Systolic blood 2021-01-04 19:00:00 109 mm[Hg] Univer sity of pressure [facility] Diastolic blood 2021-01-04 19:00:00 67 mm[Hg] Unive rsity of pressure [facility] Heart rate 2021-01-04 19:00:00 88 /min [facility] Respiratory rate 2021-01-04 19:00:00 19 /min [facility] Body temperature 2021-01-04 17:31:00 37.17 Carmen [facility] Body weight 2021-01-04 17:31:00 87.544 kg [facility] BMI 2021-01-04 17:31:00 35.30 kg/m2 [facility] Systolic blood 2020-02-03 00:13:53 134 mm[Hg] Univer sity of pressure [facility] Diastolic blood 2020-02-03 00:13:53 89 mm[Hg] Unive rsity of pressure [facility] Heart rate 2020-02-03 00:13:53 101 /min Universi ty [facility] [place] [facility] Respiratory rate 2020-02-03 00:13:53 20 /min Univ ersity of [place] [facility] Oxygen saturation in 2020-02-03 00:13:53 97 /min University of Arterial blood by [facility] Pulse oximetry Branch Body temperature 2020-02-02 18:46:00 37.83 Carmen Univ ersity of [place] [facility] Body weight 2020-02-02 18:46:00 84.823 kg Universi ty [facility] [place] [facility] BMI 2020-02-02 18:46:00 34.20 kg/m2 [facility]i ty [facility] [place] [facility] Body height 2020-02-02 18:45:00 157.5 cm Universi ty [facility] [place] [facility] Systolic blood 2020-02-03 00:13:53 134 mm[Hg] Univer sity of pressure [facility] Diastolic blood 2020-02-03 00:13:53 89 mm[Hg] Unive rsity of pressure [facility] Heart rate 2020-02-03 00:13:53 101 /min Universi ty [facility] [place] [facility] Respiratory rate 2020-02-03 00:13:53 20 /min Univ ersity of [facility] [place] [facility] Oxygen saturation in 2020-02-03 00:13:53 97 /min University of Arterial blood by [facility] Pulse oximetry Branch Body temperature 2020-02-02 18:46:00 37.83 Carmen Univ ersity of [place] [facility] Body weight 2020-02-02 18:46:00 84.823 kg Universi ty [facility] [place] [facility] BMI 2020-02-02 18:46:00 34.20 kg/m2 [facility] [place] [facility] Body height 2020-02-02 18:45:00 157.5 cm Universi ty [facility] [place] [facility] BP Systolic 2021-12-06 15:37:00 134 mm[Hg] BP Diastolic 2021-12-06 15:37:00 90 mm[Hg] Weight Measured 2021-12-06 15:37:00 192.80 pounds Height Measured 2021-12-06 15:37:00 62.00 inches Body Temperature 2021-12-06 15:37:00 98.40 degrees Heart Rate 2021-12-06 15:37:00 91.00 /min Respiratory Rate 2021-12-06 15:37:00 BP Systolic 2021-11-22 18:02:00 139 mm[Hg] BP Diastolic 2021-11-22 18:02:00 83 mm[Hg] Weight Measured 2021-11-22 18:02:00 194.00 pounds Height Measured 2021-11-22 18:02:00 62.00 inches Body Temperature 2021-11-22 18:02:00 98.20 degrees Heart Rate 2021-11-22 18:02:00 82.00 /min Respiratory Rate 2021-11-22 18:02:00 19.00 /min BP Systolic 2021-10-06 16:47:00 125 mm[Hg] BP Diastolic 2021-10-06 16:47:00 89 mm[Hg] Weight Measured 2021-10-06 16:47:00 193.40 pounds Height Measured 2021-10-06 16:47:00 62.00 inches Body Temperature 2021-10-06 16:47:00 98.40 degrees Heart Rate 2021-10-06 16:47:00 89.00 /min Respiratory Rate 2021-10-06 16:47:00 16.00 /min BP Systolic 2021-08-24 15:12:00 122 mm[Hg] BP Diastolic 2021-08-24 15:12:00 82 mm[Hg] Weight Measured 2021-08-24 15:12:00 197.60 pounds Height Measured 2021-08-24 15:12:00 62.00 inches Body Temperature 2021-08-24 15:12:00 98.00 degrees Heart Rate 2021-08-24 15:12:00 89.00 /min Respiratory Rate 2021-08-24 15:12:00 16.00 /min BP Systolic 2021-06-15 11:36:00 117 mm[Hg] BP Diastolic 2021-06-15 11:36:00 76 mm[Hg] Weight Measured 2021-06-15 11:36:00 199.80 pounds Height Measured 2021-06-15 11:36:00 62.00 inches Body Temperature 2021-06-15 11:36:00 98.60 degrees Heart Rate 2021-06-15 11:36:00 80.00 /min Respiratory Rate 2021-06-15 11:36:00 BP Systolic 2021-03-04 08:03:00 120 mm[Hg] BP Diastolic 2021-03-04 08:03:00 81 mm[Hg] Weight Measured 2021-03-04 08:03:00 189.80 pounds Height Measured 2021-03-04 08:03:00 62.00 inches Body Temperature 2021-03-04 08:03:00 98.30 degrees Heart Rate 2021-03-04 08:03:00 72.00 /min Respiratory Rate 2021-03-04 08:03:00 BP Systolic 2020-12-08 13:17:00 105 mm[Hg] BP Diastolic 2020-12-08 13:17:00 69 mm[Hg] Weight Measured 2020-12-08 13:17:00 195.20 pounds Height Measured 2020-12-08 13:17:00 62.00 inches Body Temperature 2020-12-08 13:17:00 99.00 degrees Heart Rate 2020-12-08 13:17:00 86.00 /min Respiratory Rate 2020-12-08 13:17:00 20.00 /min BP Systolic 2020-11-26 13:41:00 111 mm[Hg] BP Diastolic 2020-11-26 13:41:00 76 mm[Hg] Weight Measured 2020-11-26 13:41:00 193.60 pounds Height Measured 2020-11-26 13:41:00 62.00 inches Body Temperature 2020-11-26 13:41:00 99.10 degrees Heart Rate 2020-11-26 13:41:00 75.00 /min Respiratory Rate 2020-11-26 13:41:00 21.00 /min BP Systolic 2020-08-21 14:09:00 120 mm[Hg] BP Diastolic 2020-08-21 14:09:00 73 mm[Hg] Weight Measured 2020-08-21 14:09:00 190.40 pounds Height Measured 2020-08-21 14:09:00 62.00 inches Body Temperature 2020-08-21 14:09:00 99.20 degrees Heart Rate 2020-08-21 14:09:00 74.00 /min Respiratory Rate 2020-08-21 14:09:00 18.00 /min BP Systolic 2020-06-25 13:26:00 114 mm[Hg] BP Diastolic 2020-06-25 13:26:00 72 mm[Hg] Weight Measured 2020-06-25 13:26:00 184.60 pounds Height Measured 2020-06-25 13:26:00 62.00 inches Body Temperature 2020-06-25 13:26:00 99.30 degrees Heart Rate 2020-06-25 13:26:00 90.00 /min Respiratory Rate 2020-06-25 13:26:00 18.00 /min Procedures Procedure Date / Time Performed Performing Clinician Sourc e LIPASE 2021-01-04 17:41:00 Gagandeep Rutherford Rosangela [facility] COMP. METABOLIC PANEL 2021-01-04 17:41:00 Gagandeep Rutherford [facility] ([id number]) Medical Branch CBC WITH DIFF 2021-01-04 17:41:00 Gagandeep Rutherford [facility] URINALYSIS 2021-01-04 17:41:00 Jovan [facility] POCT TEST 2021-01-04 17:41:00 Gagandeep Rutherford [facility] NOTICE OF PRIVACY 2021-01-04 17:17:35 Doctor Unassigned, No [facility] PRACTICES [facility] CONSENT/REFUSAL FOR 2021-01-04 17:17:20 Doctor Unassigned, No [facility] DIAGNOSIS AND Name Medical [place] TREATMENT XR CHEST 1 VW COVID 2020-02-02 22:20:20 Rafael Perez [facility] CT ABDOMEN PELVIS WO 2020-02-02 22:14:49 Rafael Perez [facility] COMP. METABOLIC PANEL 2020-02-02 21:58:00 Rafael Perez [facility] ([id number]) [facility] CBC WITH DIFF 2020-02-02 21:58:00 [facility] POCT TEST 2020-02-02 21:58:00 Rafael Perez [facility] URINALYSIS 2020-02-02 21:51:00 Rafael Perez [facility]i [facility] COVID-19 (ID NOW RAPID 2020-02-02 21:48:00 [facility] NOTICE OF PRIVACY 2020-02-02 18:28:09 Doctor Unassigned, No Univ [facility] PRACTICES Name Medical Branch CONSENT/REFUSAL FOR 2020-02-02 18:21:41 Doctor Unassigned, No [facility] AND Name Medical Branch TREATMENT Plan of Care Planned Activity Planned Date Details Comments Source Goal Plan of Care Note [code = 94407-7] Goal Plan of Care Note [code = 75226-5] Goal Plan of Care Note [code = 17335-0] Goal Plan of Care Note [code = 96309-6] Goal Plan of Care Note [code = 91215-9] Goal Plan of Care Note [code = 40165-8] Goal Plan of Care Note [code = 49804-6] Goal Plan of Care Note [code = 13643-2] Goal Plan of Care Note [code = 47445-4] Goal Plan of Care Note [code = 99550-4] Goal Plan of Care Note [code = 02232-5] Goal Plan of Care Note [code = 68017-5] Goal Plan of Care Note [code = 47096-8] Goal Plan of Care Note [code = 06083-0] Goal Plan of Care Note [code = 81311-4] Goal Plan of Care Note [code = 93097-9] Goal Plan of Care Note [code = 38331-8] Goal Plan of Care Note [code = 84269-1] Goal Plan of Care Note [code = 92198-2] Goal Plan of Care Note [code = 35846-7] Goal Plan of Care Note [code = 59965-1] Goal Plan of Care Note [code = 84573-1] Goal Plan of Care Note [code = 27617-1] Goal Plan of Care Note [code = 53806-7] Goal Plan of Care Note [code = 65601-9] Goal Plan of Care Note [code = 51064-5] Goal Plan of Care Note [code = 41411-8] Goal Plan of Care Note [code = 72574-4] Goal Plan of Care Note [code = 40918-8] Goal Plan of Care Note [code = 64331-7] Goal Plan of Care Note [code = 11677-8] Goal Plan of Care Note [code = 74706-6] Goal Plan of Care Note [code = 76671-4] Goal Plan of Care Note [code = 64985-8] Goal Plan of Care Note [code = 74699-5] Goal Plan of Care Note [code = 31793-0] Goal Plan of Care Note [code = 63459-8] Goal Plan of Care Note [code = 07275-7] Goal Plan of Care Note [code = 15938-6] Encounters Start End Encounter Admission Attending Care Care Encounter Source Date/Time Date/Time Type Type Clinicians Facility Department ID 2022-02-18 2022-02-18 Outpatient [id number] 00:00:00 00:00:00 Visit [id number] [facility] 2021-01-04 2021-01-04 Emergency Gagandeep Rutherford [facility] [id number] Univers 12:26:00 15:02:00 Rosangela Hameed [id number] i ty [facility] 4.2.7.2.686 [facility] [id number] [facility] 084 Branch 2021-01-04 2021-01-04 Emergency X Gagandeep RUTHERFORD [facility] ERT [id number] Univers 12:26:00 12:26:00 ity of [facility] 2021-01-04 2021-01-04 Orders Doctor MENDOZA [id number] Univers 00:00:00 00:00:00 Only Unassigned, KRISTEN [id number] ity of [place] [facility] [address] [place] [address] [id number] [facility] 009 Branch 2020-02-02 2020-02-02 Emergency Ana [facility] [id number] Univers 14:49:37 19:17:00 Rafael Hameed [id number] ity [facility] 4.2.7.2.686 [facility] [id number] [address] 2020-02-02 2020-02-02 Emergency Ana, [facility] [id number] 14:49:37 19:17:00 Rafael Hameed [id number] [place] 4.2.7.2.686 [place] [id number] [facility] 2020-02-02 2020-02-02 Emergency X [facility] ERT [id number] Univers 13:20:00 13:20:00 [facility] Results Test Description Test Time Test Comments Results Result Comments Source CT/NG, NAAT, URINE 2021-12-08 21:50:47 Test Item Value Reference Range Interpretation Comme nts GONORRHEA, NAAT NEGATIVE NEGATIVE IMPORTA NT NOTICE: SEE ANNOUNCEMENT AT (test code = [email or web address] GeneticsrineCan [employer] Note: 53926) Assay methodolo gy is nucleic acid amplification by transcriptio n mediated amplification (TMA) utilizing the A ptima Combo 2 Assay. CHLAMYDIA, NAAT NEGATIVE NEGATIVE IMPORTA NT NOTICE: SEE ANNOUNCEMENT AT (test code = [email or web address] [email or web address] Note: 22907) Assay methodolo gy is nucleic acid amplification by transcriptio n mediated amplification (TMA) utilizing the A ptima Combo 2 Assay. HIV 1/2 4TH GEN, RFLX [id number] 04:59:08 Test Item Value Reference Range Interpretation Comments HIV 1/2 4TH GEN, RFLX CONF (test NON-REACTIVE NON-REACTIVE code = 3514) HEPATITIS PANEL, [id number] 04:59:08 Test Item Value Reference Range Interpretation Comments HEPATITIS A IgM (test NON-REACTIVE NON-REACTIVE code = 79223) HEPATITIS B CORE IgM NON-REACTIVE NON-REACTIVE (test code = 4644) HEPATITIS B SURF AG NON-REACTIVE NON-REACTIVE (test code = 2739) HEPATITIS C ANTIBODY NON-REACTIVE NON-REACTIVE (test code = 4675) INTERPRETATION (NOTE) Hepatitis A HEPATITIS A: (test code sero logy shows no = 2552) evidence of acu te hepatitis A. INTERPRETATION (NOTE) Hepatitis B HEPATITIS B: (test code sero logy shows no = 24228) evidence of acu te hepatitis B and no indication of exposure to hepatitis B vir us in the previous ce eight months. INTERPRETATION (NOTE) Hepatitis C HEPATITIS C: (test code sero logy shows no = 10714) evidence of exposure to hepatitisC viru s at this time. It can take up to 12 months after exposure tothe hepatitis C vir us for antibodies to become detectab le in the blood in certain patient s. [id number] 04:17:56 Test Item Value Reference Range Interpretation Comments RPR RESULT (test NON-REACTIVE NON-REACTIVE code = 3501) RPR TITER (test NOT INDIC. NOT INDIC. UNLESS OTHE RWISE code = 3500) TITER INDICATED, ALL TESTING PERFORMED [facility] [employer] [address] [place] [address] LABORATORY DIRE CTOR: THEO CASTILLO M.D. CLIA NUMBER [id number] [place]. [id number] GC AND CHLAMYDIA, AMPLIFIED, [id number] 00:00:00 Test Item Value Reference Range Interpretation Comments GONORRHEA, NAAT (test code = 77228) NEGATIVE CHLAMYDIA, NAAT (test code = 10687) NEGATIVE HIV AB/AG COMBO RFLX [id number] 00:00:00 Test Item Value Reference Range Interpretation Comments HIV 1/2 4TH GEN, RFLX CONF (test NON-REACTIVE code = 3514) ACUTE HEPATITIS [id number] 00:00:00 Test Item Value Reference Range Interpretation Comments HEPATITIS A IgM (test code = NON-REACTIVE 82546) HEPATITIS B CORE IgM (test code NON-REACTIVE = 4644) HEPATITIS B SURF AG (test code = NON-REACTIVE 5249) HEPATITIS C ANTIBODY (test code NON-REACTIVE = 4675) INTERPRETATION HEPATITIS A: (NOTE) (test code = 2552) INTERPRETATION HEPATITIS B: (NOTE) (test code = 38469) INTERPRETATION HEPATITIS C: (NOTE) (test code = 61492) [id number] 00:00:00 Test Item Value Reference Range Interpretation Comments RPR RESULT (test code = NON-REACTIVE 3501) RPR TITER (test code = 3500) NOT INDIC. TITER [id number] 00:00:00 Test Item Value Reference Range Interpretation Comments RPR RESULT (test code = NON-REACTIVE 3501) RPR TITER (test code = 3500) NOT INDIC. TITER Complete Metabolic [id number] 18:07:03 Test Item Value Reference Range Interpretation Comments NA (test code = 139 mmol/L 135-145 2692069877) K (test code = 3.6 mmol/L 3.5-5.0 5567981114) CL (test code = 109 mmol/L 98-108 H 7680740187) CO2 TOTAL (test code = 19 mmol/L 23-31 L 2481620164) AGAP (test code = 2-16 0688735305) BUN (test code = 10 mg/dL 7-23 7391227402) GLUCOSE (test code = 112 mg/dL 70-110 H 6654588022) CREATININE (test code = 0.89 mg/dL 0.50-1.04 2206712313) TOTAL BILI (test code = 0.3 mg/dL 0.1-1.2 1410235421) CALCIUM (test code = 8.1 mg/dL 8.6-10.6 L 4867060093) T PROTEIN (test code = 8.1 g/dL 6.3-8.2 1060644102) ALBUMIN (test code = 4.3 g/dL 3.5-5.0 1183989703) ALK PHOS (test code = 121 U/L 34-122 3217629481) ALTv (test code = 22 U/L 5-35 1742-6) AST(SGOT) (test code = 33 U/L 13-40 5810673715) eGFR (test code = mL/min/1.73m2 3529075425) TOMA (test code = TOMA) Association of [...] tests). Lab Interpretation Abnormal (test code = 26525-5) [facility] Center[facility], [id number] 18:06:22 Test Item Value Reference Range Interpretation Comments LIPASE (test code = 6562102110) 65 U/L 0-220 Lab Interpretation (test code = Normal 47141-7) [facility] CenterUrinalysis2021-06-21 18:03:42 Test Item Value Reference Range Interpretation Comments APPEARANCE (test code = Hazy Clear A 9979261821) COLOR (test code = Reta Yellow A 8181758007) PH (test code = 4.8-8.0 5971371831) SP GRAVITY (test code = 1.003-1.030 9269916914) GLU U QUAL (test code = Normal Normal 5624429722) BLOOD (test code = 1+ Negative A 4412648065) KETONES (test code = Negative Negative 9940324785) PROTEIN (test code = 30 mg/dL Negative A 2887-8) UROBILIN (test code = 4.0 mg/dL Normal A 8931221175) BILIRUBIN (test code = Negative Negative 4968821991) NITRITE (test code = Positive Negative A 3911128251) LEUK CHARLES (test code = Negative Negative 8390696120) RBC/HPF (test code = See_Comment H [Autom ated message] 7487782877) The system [employer] generated this result transmit tomasa reference range : 0 - 3 HPF. The refe rence range was not u sed to interpret th is result as normal/abnormal . WBC/HPF (test code = See_Comment H [Autom ated message] 8381091595) The system [employer] generated this result transmit tomasa reference range : 0 - 5 HPF. The refe rence range was not u sed to interpret th is result as normal/abnormal . BACTERIA (test code = Many Negative A 3381109845) MUCOUS (test code = Marked Negative LPF A 1841158874) SQ EPITH (test code = HPF 1424054654) Lab Interpretation (test Abnormal code = 95372-9) [facility] with [id number] 17:53:21 Test Item Value Reference Range Interpretation Comments WBC (test code = See_Comment [Automated message] 6690-2) The system [employer] generated this result transmitted ref erence range: 4.30 - 1 1.10 10*3/?L. The re ference range was not u sed to interpret this result as normal/abnor mal. RBC (test code = See_Comment [Automated message] 789-8) The system [employer] generated this result transmitted ref erence range: [...] RDW-SD (test code 48.3 fL 39.0-49.9 = 63149-1) RDW-CV (test code 15.2 % 12.0-15.5 = 788-0) PLT (test code = See_Comment [Automated message] 777-3) The system [employer] generated this result transmitted ref erence range: 166 - 35 8 10*3/?L. The re ference range was not u sed to interpret this result as normal/abnor mal. MPV (test code = 9.5 fL 9.5-12.9 42764-0) NRBC/100 WBC (test See_Comment [Automat ed message] code = 6860044659) The syste m which generated this result transmitted ref erence range: 0.0 - 10 .0 /100 WBCs. The refer ence range was not u sed to interpret this result as normal/abnor mal. NRBC x10^3 (test <0.01 See_Comment [Automated message] code = 5379786285) The syste m which generated this result transmitted ref erence range: 10*3/?L. The reference range was not used to interpr et this result as normal/abnormal . GRAN MAT (NEUT) % 67.1 % (test code = 770-8) IMM GRAN % (test 0.50 % code = 7792240474) LYMPH % (test code 21.1 % = 736-9) MONO % (test code 10.6 % = 5905-5) EOS % (test code = 0.5 % 713-8) BASO % (test code 0.2 % = 706-2) GRAN MAT 5.75 10*3/uL 1.88-7.09 x10^3(ANC) (test code = 6597218339) IMM GRAN x10^3 0.04 10*3/uL 0.00-0.06 (test code = 4587067999) LYMPH x10^3 (test 1.81 10*3/uL 1.32-3.29 code = 731-0) MONO x10^3 (test 0.91 10*3/uL 0.33-0.92 code = 742-7) EOS x10^3 (test 0.04 10*3/uL 0.03-0.39 code = 711-2) BASO x10^3 (test <0.03 0.01-0.07 code = 704-7) [facility] CenterPOCT [id number] 17:41:00 Test Item Value Reference Range Interpretation Comments POCT PREG (test code = 1605) negative On board controls acceptable with C present Line (test code = 3574) Lab Interpretation (test code = Normal 78691-4) [facility] CenterCBC W/AUTO [id number] 00:00:00 Test Item Value Reference Range Interpretation Comments WBC (test code = 1001) 8.5 K/UL RBC (test code = 1002) 4.71 M/UL HEMOGLOBIN (test code = 1003) 12.8 G/DL HEMATOCRIT (test code = 1004) 39.5 % MCV (test code = 1005) 83.9 fL MCH (test code = 1006) 27.2 PG MCHC (test code = 1007) 32.4 G/DL RDW (test code = 1038) 14.4 % NEUTROPHILS (test code = 1008) 64.4 % LYMPHOCYTES (test code = 1010) 28.8 % MONOCYTES (test code = 1011) 4.6 % EOSINOPHILS (test code = 1012) 1.1 % BASOPHILS (test code = 1013) 0.5 % IMMATURE GRANULOCYTES (test 0.6 % code = 1036) NUCLEATED RBCS (test code = 0.0 /100WBC'S 1065) PLATELET COUNT (test code = 369 K/UL 1015) ABSOLUTE NEUTROPHILS (test code 5.51 K/UL = 1066) ABSOLUTE LYMPHOCYTES (test code 2.46 K/UL = 1067) ABSOLUTE MONOCYTES (test code = 0.39 K/UL 1068) ABSOLUTE EOSINOPHILS (test code 0.09 K/UL = 1040) ABSOLUTE BASOPHILS (test code = 0.04 K/UL 1069) ABS IMMATURE GRANULOCYTES (test 0.05 K/UL code = 1020) ABS NUCLEATED RBCS (test code = 0.00 K/UL 25045) CBC W/AUTO [id number] 00:00:00 Test Item Value Reference Range Interpretation Comments WBC (test code = 1001) 8.5 K/UL RBC (test code = 1002) 4.71 M/UL HEMOGLOBIN (test code = 1003) 12.8 G/DL HEMATOCRIT (test code = 1004) 39.5 % MCV (test code = 1005) 83.9 fL MCH (test code = 1006) 27.2 PG MCHC (test code = 1007) 32.4 G/DL RDW (test code = 1038) 14.4 % NEUTROPHILS (test code = 1008) 64.4 % LYMPHOCYTES (test code = 1010) 28.8 % MONOCYTES (test code = 1011) 4.6 % EOSINOPHILS (test code = 1012) 1.1 % BASOPHILS (test code = 1013) 0.5 % IMMATURE GRANULOCYTES (test 0.6 % code = 1036) NUCLEATED RBCS (test code = 0.0 /100WBC'S 1065) PLATELET COUNT (test code = 369 K/UL 1015) ABSOLUTE NEUTROPHILS (test code 5.51 K/UL = 1066) ABSOLUTE LYMPHOCYTES (test code 2.46 K/UL = 1067) ABSOLUTE MONOCYTES (test code = 0.39 K/UL 1068) ABSOLUTE EOSINOPHILS (test code 0.09 K/UL = 1040) ABSOLUTE BASOPHILS (test code = 0.04 K/UL 1069) ABS IMMATURE GRANULOCYTES (test 0.05 K/UL code = 1020) ABS NUCLEATED RBCS (test code = 0.00 K/UL 24524) HEMOGLOBIN [id number] 00:00:00 Test Item Value Reference Range Interpretation Comments HEMOGLOBIN A1c (test code = 62993) 5.5 % HEMOGLOBIN [id number] 00:00:00 Test Item Value Reference Range Interpretation Comments HEMOGLOBIN A1c (test code = 63050) 5.5 % LIPID [id number] 00:00:00 Test Item Value Reference Range Interpretation Comments CHOLESTEROL (test code = 2210) 160 MG/DL TRIGLYCERIDES (test code = 2232) 237 MG/DL HDL CHOLESTEROL (test code = 2220) 41 MG/DL CALC LDL CHOL (test code = 2237) 86 MG/DL RISK RATIO LDL/HDL (test code = 2.10 RATIO 2238) COMPREHENSIVE METABOLIC [id number] 00:00:00 Test Item Value Reference Range Interpretation Comments GLUCOSE (test code = 2217) 109 MG/DL BUN (test code = 2208) 12 MG/DL CREATININE (test code = 2214) 0.83 MG/DL eGFR AMER. (test code 98 ML/MIN/1.73 = 30966) eGFR NON- AMER. (test 85 ML/MIN/1.73 code = 63439) CALC BUN/CREAT (test code = 14 RATIO 2235) SODIUM (test code = 2231) 140 MEQ/L POTASSIUM (test code = 2228) 3.8 MEQ/L CHLORIDE (test code = 2215) 107 MEQ/L CARBON DIOXIDE (test code = 22 MEQ/L 2205) CALCIUM (test code = 2209) 9.1 MG/DL PROTEIN, TOTAL (test code = 7.4 G/DL 2228) ALBUMIN (test code = 2201) 4.2 G/DL CALC GLOBULIN (test code = 3.2 G/DL 0) CALC A/G RATIO (test code = 1.3 RATIO 2233) BILIRUBIN, TOTAL (test code = <0.2 MG/DL 2206) ALKALINE PHOSPHATASE (test 99 U/L code = 2204) AST (test code = 2218) 17 U/L ALT (test code = 2219) 15 U/L [id number] 00:00:00 Test Item Value Reference Range Interpretation Comments TSH, THIRD GENERATION (test code 0.889 UIU/ML = 2821) [id number] 00:00:00 Test Item Value Reference Range Interpretation Comments TSH, THIRD GENERATION (test code 0.889 UIU/ML = 2821) VITAMIN D, 25 [id number] 00:00:00 Test Item Value Reference Range Interpretation Comments VITAMIN D, 25 OH (test code = 4958) 15 NG/ML PAP TEST, THINPREP, [id number] 00:00:00 Test Item Value Reference Range Interpretation Comments SOURCE: (test code = Cervical/Endocervical 8001) SLIDES: (test code = 1 8011) LMP: (test code = 8021) 06/06/2020 SPECIMEN ADEQUACY: (NOTE) (test code = 29913) INTERPRETATION: (test NILM/NO EPITH. code = 18509) ABNORMALITY;SEE BELOW SHEAR SCRAPMAN: (test Vincent code = 8101) VALENTÍN Marquez(ASCP) LOCATION: (test code = (NOTE) 42589) CPT: (test code = 8140) (NOTE) HPV HIGH RISK WITH GENOTYPE, [id number] 00:00:00 Test Item Value Reference Range Interpretation Comments HPV HIGH RISK INTERP (test NEGATIVE code = 66008) HPV 16 (test code = 36186) TEST NOT PERFORMED HPV 18 (test code = 36313) TEST NOT PERFORMED HPV, HR, OTHER GENOTYPES TEST NOT PERFORMED (test code = 30962) HIV AB/AG COMBO RFLX [id number] 00:00:00 Test Item Value Reference Range Interpretation Comments HIV 1/2 4TH GEN, RFLX CONF (test NON-REACTIVE code = 3514) GC AND CHLAMYDIA AMPLIFIED, [id number] 00:00:00 Test Item Value Reference Range Interpretation Comments GONORRHEA, TMA (test code = 23271) NEGATIVE CHLAMYDIA, TMA (test code = 66944) NEGATIVE ACUTE HEPATITIS [id number] 00:00:00 Test Item Value Reference Range Interpretation Comments HEPATITIS A IgM (test code = NON-REACTIVE 54998) HEPATITIS B CORE IgM (test code NON-REACTIVE = 4644) HEPATITIS B SURF AG (test code = NON-REACTIVE 7319) HEPATITIS C ANTIBODY (test code NON-REACTIVE = 4675) INTERPRETATION HEPATITIS A: (NOTE) (test code = 2552) INTERPRETATION HEPATITIS B: (NOTE) (test code = 55549) INTERPRETATION HEPATITIS C: (NOTE) (test code = 45916) [id number] 00:00:00 Test Item Value Reference Range Interpretation Comments RPR RESULT (test code = NON-REACTIVE 3501) RPR TITER (test code = 3500) NOT INDIC. TITER [id number] 00:00:00 Test Item Value Reference Range Interpretation Comments RPR RESULT (test code = NON-REACTIVE 3501) RPR TITER (test code = 3500) NOT INDIC. TITER VAGINAL PATHOGENS DNA [id number] 00:00:00 Test Item Value Reference Range Interpretation Comments TREVOR SPECIES (test code = 58671) NEGATIVE G. VAGINALIS (test code = 03715) POSITIVE T. VAGINALIS (test code = 55440) NEGATIVE H. PYLORI AG, [id number] 00:00:00 Test Item Value Reference Range Interpretation Comments H. PYLORI AG, STOOL (test code = NEGATIVE 67816) COVID-19 (ID NOW RAPID TESTING)2020-02-02 23:10:00 Test Item Value Reference Range Interpretation Comments SARS-CoV-2 Rapid ID NOW Not Detected Not Detected (test code = 33032-1) TOMA (test code = TOMA) ID NOW COVID-19 Assay is an isothermal nucleic acid amplification test intended for the qualitative detection of nucleic acid from SARS-CoV-2 viral RNA in nasopharyngeal ([employer]ODUCT [employer]INEER) specimens. It is used under Emergency Use [...] indicated. Lab Interpretation Normal (test code = 20286-4) [facility]IS2020-[facility] 23:05:00 Test Item Value Reference Range Interpretation Comments APPEARANCE (test code = Hazy Clear A 5662615517) COLOR (test code = Yellow Yellow 1275827376) PH (test code = 4.8-8.0 3993510533) SP GRAVITY (test code = 1.003-1.030 0422858638) GLU U QUAL (test code = Normal Normal 9782214295) BLOOD (test code = Negative Negative 8512577310) KETONES (test code = Negative Negative 2631377168) PROTEIN (test code = Negative Negative 2887-8) UROBILIN (test code = Normal Normal 8886717066) BILIRUBIN (test code = Negative Negative 3234145095) NITRITE (test code = Negative Negative 1710304317) LEUK CHARLES (test code = Negative Negative 4141160295) RBC/HPF (test code = See_Comment H [Autom ated message] 5800373401) The system [employer] generated this result transmitted ref erence range: 0 - 3 HP F. The reference range was not used to int erpret this result as normal/abnormal . WBC/HPF (test code = See_Comment [Autom ated message] 3830535231) The system [employer] generated this result transmitted ref erence range: 0 - 5 HP F. The reference range was not used to int erpret this result as normal/abnormal . BACTERIA (test code = Few Negative A 8854390194) MUCOUS (test code = Moderate Negative LPF A 4470742434) SQ EPITH (test code = HPF 2924159512) HYAL CAST (test code = See_Comment [Aut omated message] 6100148918) The system [employer] generated this result transmitted ref erence range: <=2 LPF. The reference range was not used to int erpret this result as normal/abnormal . Lab Interpretation (test Abnormal code = 40845-7) [facility]. METABOLIC PANEL (74925)2020-02-02 22:52:00 Test Item Value Reference Range Interpretation Comments NA (test code = 140 mmol/L 135-145 3412127620) K (test code = 3.8 mmol/L 3.5-5 2362211813) CL (test code = 111 mmol/L 98-108 H 1298635664) CO2 TOTAL (test code = 20 mmol/L 23-31 L 3877492888) AGAP (test code = 2-16 4475223822) BUN (test code = 10 mg/dL 7-23 4750513203) GLUCOSE (test code = 94 mg/dL 70-110 8475284473) CREATININE (test code = 1.11 mg/dL 0.5-1.04 H 8093455567) TOTAL BILI (test code = 0.4 mg/dL 0.1-1.2 4795860819) CALCIUM (test code = 8.8 mg/dL 8.6-10.6 6575920003) T PROTEIN (test code = 8.4 g/dL 6.3-8.2 H 9680449993) ALBUMIN (test code = 4.4 g/dL 3.5-5 1173750185) ALK PHOS (test code = 97 U/L 34-122 3383963179) ALTv (test code = 36 U/L 5-35 H 1742-6) AST(SGOT) (test code = 44 U/L 13-40 H 1498049937) eGFR Calculation mL/min/1.73m2 (Non-) (test code = 2477459812) eGFR Calculation mL/min/1.73m2 () (test code = 1779773236) TOMA (test code = TOMA) Association of [...] tests). Lab Interpretation Abnormal (test code = 87606-8) [facility] Center[facility] WO [id number] 22:35:331. No definite acute intra-abdominal or intrapelvic pathology on thislimited noncontrast study.2. Left nephrolithiasis without evidence of hydronephrosis. Changes ofright nephrectomy3. Diverticulosis of the colon without evidence of diverticulitis4. Hepatic steatosis5. Fibroids EXAM: CT SCAN OF THE ABDOMEN AND PELVIS WITHOUT CONTRAST HISTORY: Abd pain, unspecified, non- acute Nausea, vomiting TECHNIQUE:3 mm axial images are obtained from diaphragmatic domes tosymphysis pubis without oral or intravenous contrast. Sagittal and coronalreformation is carried out. COMPARISON: None Radiation Dose: DLP of 501 mGy-cm. FINDINGS: Small focus of atelectasis is seen adjacent to the right heart border. Alsoseenis a small groundglass opacity in the left lower lobe (2:10). Nopleural effusion stress is seen. Heart size is normal. Liver is normal in size but demonstrates decreased attenuation compared tothe spleen. The gallbladder is removed. No bile duct dilation isappreciated. Pancreas is grossly normal. No ductal dilation is seen. Spleen is normal insize. A small accessory splenule is noted measuring 6 to 7mm in size. Adrenal glands are normal in [...] nodes are seen in theretroperitoneum or mesentery. Bowelloops are normal in caliber. There is no [...] contrast. Sagittal and coronalreformation is carried out.COMPARISON: NoneRadiat ion Dose: DLP of 501 mGy-cm. FINDINGS:Small focus of atelectasis is seen adjacent to the right heartborder. Alsoseen is a small groundglass opacity in [...] 4mm calcification is seen in the inferior poleof the left kidney. Nohydronephrosis is noted.Abdominal aorta is normal in caliber. No free fluid orfree air isidentified in the abdomen. No enlarged lymph nodes are seen in theretroperitoneum or mesen jim.Bowel loops are normal in caliber. There is no evidence of bowelobstruction. The appendix is not visualized and may have been removed. Afew scattered diverticula are seen in the descending colon.The uterus is somewhat lobular in appearance. A small low attenuationmasses present on the right side o f the fundal portion of the uterusmeasuring approximately [...] without evidence of diverticulitis4. Hepatic steatosis5. Fibroids [facility] WITH [id number] 22:29:00 Test Item Value Reference Range Interpretation Comments WBC (test code = See_Comment [Automated message] 1790-2) The system [employer] generated this result transmitted ref erence range: 4.30 - 1 1.10 10*3/?L. The re ference range was not u sed to interpret this result as normal/abnor mal. RBC (test code = See_Comment [Automated message] 789-8) The system [employer] generated this result transmitted ref erence range: [...] RDW-SD (test code 45.1 fL 39-49.9 = 95202-7) RDW-CV (test code 14.2 % 12-15.5 = 788-0) PLT (test code = See_Comment [Automated message] 777-3) The system whic h generated this result transmitted ref erence range: 166 - 35 8 10*3/?L. The re ference range was not u sed to interpret this result as normal/abnor mal. MPV (test code = 9.7 fL 9.5-12.9 59784-9) NRBC/100 WBC (test See_Comment [Automat ed message] code = 3646989822) The syste m which generated this result transmitted ref erence range: 0.0 - 10 .0 /100 WBCs. The refer ence range was not u sed to interpret this result as normal/abnor mal. NRBC x10^3 (test <0.01 See_Comment [Automated message] code = 7180596500) The syste m which generated this result transmitted ref erence range: 10*3/?L. The reference range was not used to interpr et this result as normal/abnormal . GRAN MAT (NEUT) % 59.9 % (test code = 770-8) IMM GRAN % (test 0.50 % code = 1088504564) LYMPH % (test code 29.0 % = 736-9) MONO % (test code 9.4 % = 5905-5) EOS % (test code = 0.9 % 713-8) BASO % (test code 0.3 % = 706-2) GRAN MAT 4.70 10*3/uL 1.88-7.09 x10^3(ANC) (test code = 9722275105) IMM GRAN x10^3 0.04 10*3/uL 0-0.06 (test code = 4081329209) LYMPH x10^3 (test 2.28 10*3/uL 1.32-3.29 code = 731-0) MONO x10^3 (test 0.74 10*3/uL 0.33-0.92 code = 742-7) EOS x10^3 (test 0.07 10*3/uL 0.03-0.39 code = 711-2) BASO x10^3 (test <0.03 0.01-0.07 code = 704-7) [facility] CenterXR [facility] 1 VW [id number] 22:28:10 1. Abnormal changes in the right upper lobe suggestive of pneumonia,including COVID-19 pneumonia. Disclaimer: Generally, the findings on chest imaging in COVID-19 are notspecific, and overlap with other infections, including influenza, H1N1,SARS and MERS.According to the Centers for Disease Control (CDC) and the [employer], viral testing remains the only specific method of diagnosiseven if CXR or CT findings are suggestive of COVID-19. PROCEDURE: CHEST XRAY 1 view, CLINICAL INDICATION: cough COMPARISON: None FINDINGS: Lungs: Abnormal opacity is seen in the right upper lobe. Remainder of thelungs is clear. Pleura: No pleural effusion or pneumothorax is seen. The heart is normal insize. No acute bony abnormality. [facility], Radiant Results Inft User - 02/02/2020 5:29 PM CDTPROCEDURE: CHEST XRAY 1 view, CLINICAL INDICATION: cough COMPARISON: NoneFINDINGS:Lungs: Abnormal opacity is seen in the right upper lobe. Remainder of thelungs is clear.Pleura: No pleural effusion or pneumothoraxis seen. The heart is normal insize.No acute bony abnormality.IMPRESSION1. Abnormal changes in the right upper lobe suggestive of pneumonia,including COVID-19 pneumonia.Disclaimer: Generally, the findings on chest imaging in COVID-19 are notspecific, and overlap with other infections, including influenza, H1N1,SARS and MERS.According to the Centers for Disease Control (CDC) and the [employer], viral testing remains the only specific method of diagnosiseven if CXR or CT findings aresuggestive of COVID-19.[facility] CenterPOCT [id number] 21:58:00 Test Item Value Reference Range Interpretation Comments POCT PREG (test code = 1605) negative On board controls acceptable with present C Line (test code = 3574) POCT PREG LOT # (test code = 3575) [id number] POCT PREG TEST DATE (test 02-13-2021 code = 3576) Lab Interpretation (test code = Normal 20235-0) [facility] CenterHEMO[facility]IN [id number] 00:00:00 Test Item Value Reference Range Interpretation Comments HEMOGLOBIN A1c (test code = 20069) 5.5 % HEMOGLOBIN [id number] 00:00:00 Test Item Value Reference Range Interpretation Comments HEMOGLOBIN A1c (test code = 89058) 5.5 % LIPID [id number] 00:00:00 Test Item Value Reference Range Interpretation Comments CHOLESTEROL (test code = 2210) 168 MG/DL TRIGLYCERIDES (test code = 2232) 143 MG/DL HDL CHOLESTEROL (test code = 2220) 57 MG/DL CALC LDL CHOL (test code = 2237) 87 MG/DL RISK RATIO LDL/HDL (test code = 1.53 RATIO 2238) COMPREHENSIVE METABOLIC [id number] 00:00:00 Test Item Value Reference Range Interpretation Comments GLUCOSE (test code = 2217) 93 MG/DL BUN (test code = 2208) 9 MG/DL CREATININE (test code = 2214) 0.86 MG/DL eGFR AMER. (test code 95 ML/MIN/1.73 = 16786) eGFR NON- AMER. (test 82 ML/MIN/1.73 code = 30681) CALC BUN/CREAT (test code = 10 RATIO 2235) SODIUM (test code = 2231) 140 MEQ/L POTASSIUM (test code = 2228) 4.2 MEQ/L CHLORIDE (test code = 2215) 101 MEQ/L CARBON DIOXIDE (test code = 25 MEQ/L 2205) CALCIUM (test code = 2209) 9.3 MG/DL PROTEIN, TOTAL (test code = 7.4 G/DL 2228) ALBUMIN (test code = 2201) 4.4 G/DL CALC GLOBULIN (test code = 3.0 G/DL 2240) CALC A/G RATIO (test code = 1.5 RATIO 2234) BILIRUBIN, TOTAL (test code = <0.2 MG/DL 2206) ALKALINE PHOSPHATASE (test 94 U/L code = 2204) AST (test code = 2218) 24 U/L ALT (test code = 2219) 30 U/L CBC W/AUTO [id number] 00:00:00 Test Item Value Reference Range Interpretation Comments WBC (test code = 1001) 10.0 K/UL RBC (test code = 1002) 4.86 M/UL HEMOGLOBIN (test code = 1003) 13.7 G/DL HEMATOCRIT (test code = 1004) 41.6 % MCV (test code = 1005) 85.6 fL MCH (test code = 1006) 28.2 PG MCHC (test code = 1007) 32.9 G/DL RDW (test code = 1038) 13.8 % NEUTROPHILS (test code = 1008) 73.8 % LYMPHOCYTES (test code = 1010) 17.5 % MONOCYTES (test code = 1011) 7.5 % EOSINOPHILS (test code = 1012) 0.9 % BASOPHILS (test code = 1013) 0.3 % PLATELET COUNT (test code = 1015) 374 K/UL CBC W/AUTO [id number] 00:00:00 Test Item Value Reference Range Interpretation Comments WBC (test code = 1001) 10.0 K/UL RBC (test code = 1002) 4.86 M/UL HEMOGLOBIN (test code = 1003) 13.7 G/DL HEMATOCRIT (test code = 1004) 41.6 % MCV (test code = 1005) 85.6 fL MCH (test code = 1006) 28.2 PG MCHC (test code = 1007) 32.9 G/DL RDW (test code = 1038) 13.8 % NEUTROPHILS (test code = 1008) 73.8 % LYMPHOCYTES (test code = 1010) 17.5 % MONOCYTES (test code = 1011) 7.5 % EOSINOPHILS (test code = 1012) 0.9 % BASOPHILS (test code = 1013) 0.3 % PLATELET COUNT (test code = 1015) 374 K/UL COMPREHENSIVE METABOLIC [id number] 00:00:00 Test Item Value Reference Range Interpretation Comments GLUCOSE (test code = 2217) 86 MG/DL BUN (test code = 2208) 8 MG/DL CREATININE (test code = 2214) 0.93 MG/DL eGFR AMER. (test code 87 ML/MIN/1.73 = 52301) eGFR NON- AMER. (test 75 ML/MIN/1.73 code = 58889) CALC BUN/CREAT (test code = 9 RATIO 2235) SODIUM (test code = 2231) 134 MEQ/L POTASSIUM (test code = 2228) 5.7 MEQ/L CHLORIDE (test code = 2215) 102 MEQ/L CARBON DIOXIDE (test code = 14 MEQ/L 2205) CALCIUM (test code = 2209) 9.1 MG/DL PROTEIN, TOTAL (test code = 7.6 G/DL 2228) ALBUMIN (test code = 2201) 4.2 G/DL CALC GLOBULIN (test code = 3.4 G/DL 2240) CALC A/G RATIO (test code = 1.2 RATIO 2234) BILIRUBIN, TOTAL (test code = <0.2 MG/DL 2206) ALKALINE PHOSPHATASE (test 118 U/L code = 2204) AST (test code = 2218) 27 U/L ALT (test code = 2219) 19 U/L LIPID [id number] 00:00:00 Test Item Value Reference Range Interpretation Comments CHOLESTEROL (test code = 2210) 181 MG/DL TRIGLYCERIDES (test code = 2232) 291 MG/DL HDL CHOLESTEROL (test code = 2220) 42 MG/DL CALC LDL CHOL (test code = 2237) 81 MG/DL RISK RATIO LDL/HDL (test code = 1.92 RATIO 2238) HIV AB/AG COMBO RFLX [id number] 00:00:00 Test Item Value Reference Range Interpretation Comments HIV 1/2 4TH GEN, RFLX CONF (test NON-REACTIVE code = 3514) ACUTE HEPATITIS [id number] 00:00:00 Test Item Value Reference Range Interpretation Comments HEPATITIS A IgM (test code = NON-REACTIVE 08059) HEPATITIS B CORE IgM (test code NON-REACTIVE = 4644) HEPATITIS B SURF AG (test code = NON-REACTIVE 2739) HEPATITIS C ANTIBODY (test code NON-REACTIVE = 4675) HCV INDEX (test code = 74779) 0.11 INTERPRETATION HEPATITIS A: (NOTE) (test code = 2552) INTERPRETATION HEPATITIS B: (NOTE) (test code = 02418) INTERPRETATION HEPATITIS C: (NOTE) (test code = 08312) [id number] 00:00:00 Test Item Value Reference Range Interpretation Comments RPR RESULT (test code = NON-REACTIVE 3501) RPR TITER (test code = 3500) NOT INDIC. TITER [id number] 00:00:00 Test Item Value Reference Range Interpretation Comments RPR RESULT (test code = NON-REACTIVE 3501) RPR TITER (test code = 3500) NOT INDIC. TITER GC AND CHLAMYDIA, AMPLIFIED, [id number] 00:00:00 Test Item Value Reference Range Interpretation Comments GONORRHEA, TMA (test code = 02568) NEGATIVE CHLAMYDIA, TMA (test code = 44346) NEGATIVE CBC W/AUTO [id number] 00:00:00 Test Item Value Reference Range Interpretation Comments WBC (test code = 1001) 9.3 K/UL RBC (test code = 1002) 4.72 M/UL HEMOGLOBIN (test code = 1003) 13.8 G/DL HEMATOCRIT (test code = 1004) 40.6 % MCV (test code = 1005) 86.0 fL MCH (test code = 1006) 29.2 PG MCHC (test code = 1007) 34.0 G/DL RDW (test code = 1038) 13.8 % NEUTROPHILS (test code = 1008) 73.4 % LYMPHOCYTES (test code = 1010) 18.3 % MONOCYTES (test code = 1011) 7.4 % EOSINOPHILS (test code = 1012) 0.6 % BASOPHILS (test code = 1013) 0.3 % PLATELET COUNT (test code = 1015) 374 K/UL CBC W/AUTO [id number] 00:00:00 Test Item Value Reference Range Interpretation Comments WBC (test code = 1001) 9.3 K/UL RBC (test code = 1002) 4.72 M/UL HEMOGLOBIN (test code = 1003) 13.8 G/DL HEMATOCRIT (test code = 1004) 40.6 % MCV (test code = 1005) 86.0 fL MCH (test code = 1006) 29.2 PG MCHC (test code = 1007) 34.0 G/DL RDW (test code = 1038) 13.8 % NEUTROPHILS (test code = 1008) 73.4 % LYMPHOCYTES (test code = 1010) 18.3 % MONOCYTES (test code = 1011) 7.4 % EOSINOPHILS (test code = 1012) 0.6 % BASOPHILS (test code = 1013) 0.3 % PLATELET COUNT (test code = 1015) 374 K/UL COMPREHENSIVE METABOLIC [id number] 00:00:00 Test Item Value Reference Range Interpretation Comments GLUCOSE (test code = 2217) 96 MG/DL BUN (test code = 2208) 9 MG/DL CREATININE (test code = 2214) 0.73 MG/DL eGFR AMER. (test code 117 ML/MIN/1.73 = 46023) eGFR NON- AMER. (test 101 ML/MIN/1.73 code = 22262) CALC BUN/CREAT (test code = 12 RATIO 2235) SODIUM (test code = 2231) 144 MEQ/L POTASSIUM (test code = 2228) 4.0 MEQ/L CHLORIDE (test code = 2215) 104 MEQ/L CARBON DIOXIDE (test code = 23 MEQ/L 2205) CALCIUM (test code = 2209) 9.5 MG/DL PROTEIN, TOTAL (test code = 7.8 G/DL 2228) ALBUMIN (test code = 2201) 4.6 G/DL CALC GLOBULIN (test code = 3.2 G/DL 2239) CALC A/G RATIO (test code = 1.4 RATIO 223) BILIRUBIN, TOTAL (test code = <0.2 MG/DL 2206) ALKALINE PHOSPHATASE (test 105 U/L code = 2204) AST (test code = 2218) 18 U/L ALT (test code = 2219) 16 U/L LIPID [id number] 00:00:00 Test Item Value Reference Range Interpretation Comments CHOLESTEROL (test code = 2210) 188 MG/DL TRIGLYCERIDES (test code = 2232) 162 MG/DL HDL CHOLESTEROL (test code = 2220) 48 MG/DL CALC LDL CHOL (test code = 2237) 108 MG/DL RISK RATIO LDL/HDL (test code = 2.24 RATIO 2238) [id number] 00:00:00 Test Item Value Reference Range Interpretation Comments TSH, THIRD GENERATION (test code 1.150 UIU/ML = 2821) [id number] 00:00:00 Test Item Value Reference Range Interpretation Comments TSH, THIRD GENERATION (test code 1.150 UIU/ML = 2821) HEMOGLOBIN [id number] 00:00:00 Test Item Value Reference Range Interpretation Comments HEMOGLOBIN A1c (test code = 01657) 5.4 % HEMOGLOBIN [id number] 00:00:00 Test Item Value Reference Range Interpretation Comments HEMOGLOBIN A1c (test code = 24499) 5.4 %"
[2022-04-05] MEDS ORDERED: KETOROLAC 30 MG/ML INJ ONE (23:14)
[2022-04-05] MEDS ORDERED: ONDANSETRON 4 MG/2 ML VIAL ONE (23:15)
[2022-04-05 23:23] LABS: Urine Blood Trace-intact (Negative); Urine Glucose Negative (Negative); Urine Protein Negative (Negative)
[2022-04-05 23:28] LABS: Absolute Lymphocytes (CBC) 2.4 K/uL (0.7-4.9); Hematocrit 37.3 % (36.0-45.0); Lymphocytes % 29.9 % (15.3-44.8); MCV 83.6 fL (80-100); MPV 7.8 fL (7.6-11.3); RBC Red Blood Cell Count 4.46 M/uL (3.86-4.86)
[2022-04-05] MEDS ORDERED: PROMETHAZINE INJ 25 MG/ML AMP ONE (23:31)
[2022-04-05] MEDS ORDERED: FENTANYL CITR 100 MCG/2 ML ONE (23:33)
[2022-04-05 23:43] LABS: Albumin 3.4 g/dL (3.4-5.0); Bilirubin Total 0.1 mg/dL (0.2-1.0); Potassium 3.8 mmol/L (3.5-5.1); Protein, Total 7.3 g/dL (6.4-8.2)
[2022-04-05 23:57] LABS: Calcium Oxalate Crystals- Ur Few /HPF (None Seen); Urine Bacteria >50 /HPF (<20); Urine Crystals Unidentified Few /HPF (None Seen); Urine Mucus 2+ /HPF (None Seen); Urine RBC <5 /HPF (None Seen)
--- NOTE | 2022-04-06 01:07 | ER ---
Nurse's Notes [facility] Name: Yissel Carmona Age: 46 yrs Sex: Female : 1975 Arrival Date: 04/05/2022 Time: 22:12 Bed Treatment Private MD: Diagnosis: UTI/ Urinary tract infection, site not specified Presentation: 04/05 22:14 Chief complaint: Patient states: "I started having pain in my back on Monday and today as6 I started throwing up". Coronavirus screen: At this time, the client does not indicate any symptoms associated with coronavirus-19. Ebola Screen: No symptoms or risks identified at this time. Initial Sepsis Screen: Does the patient meet any 2 criteria? No. Patient's initial sepsis screen is negative. Does the patient have a suspected source of infection? No. Patient's initial sepsis screen is negative. Risk Assessment: Do you want to hurt yourself or someone else? Patient reports no desire to harm self or others. Onset of symptoms was April 03, 2022. 22:14 Method Of Arrival: Ambulatory as6 22:14 Acuity: NEVAEH 3 as6 Triage Assessment: 23:05 General: Appears Behavior is calm, cooperative, appropriate for age. GI: No deficits jj7 noted. Historical: - Allergies: 22:18 Cipro; as6 22:18 Reglan; as6 22:18 Stadol; as6 22:18 tequin; as6 22:18 Toradol; as6 22:18 tramadol; as6 22:18 Zofran; as6 22:18 Rocephin; as6 - Home Meds: 22:18 Topamax 200 mg Oral tab 1 tab [Active]; amitriptyline 100 mg Oral tab 1 tab once daily as6 [Active]; Risperdal Oral [Active]; - PMHx: 22:18 Migraines; one kidney; as6 - PSHx: 22:18 kidney removal; Cholecystectomy; as6 - Immunization history:: Client reports receiving the 2nd dose of the Covid vaccine, [employer]. - Social history:: Smoking status: Patient denies any tobacco usage or history of. Screenin:05 Abuse screen: Denies threats or abuse. Nutritional screening: No deficits noted. jj7 Tuberculosis screening: No symptoms or risk factors identified. Fall Risk None identified. Assessment: 23:05 Pain: Complains of pain in left low back and right low back. : Reports pain in lower jj7 back urinary frequency, since today. 23:33 Reassessment: assumed care of pt. pt lying in bed c/o of lower back pain. denies pain jj7 with urination. nausea noted. no active vomiting. call crook in reach. Vital Signs: 22:14 BP 119 / 71; Pulse 89; Resp 16 S; Temp 97.4(TE); Pulse Ox 100% on R/A; Weight 88.45 kg as6 (R); Height 5 ft. 2 in. (157.48 cm) (R); Pain 10/10; 23:05 BP 121 / 79; Pulse 80; Resp 20; Pulse Ox 99% ; Pain 10/10; jj7 04/06 00:17 BP 97 / 51; Pulse 73; Resp 17; Pulse Ox 98% ; Pain 3/10; jj7 01:21 BP 102 / 64; Pulse 79; Resp 17; Pulse Ox 99% ; Pain 2/10; jj7 04/05 22:14 Body Mass Index 35.67 (88.45 kg, 157.48 cm) as6 ED Course: 04/05 22:12 Patient arrived in ED. dt4 22:14 [facility]C [facility] kb 22:14 Arash Yang DO is Attending Physician. kb 22:18 Triage completed. as6 22:20 Arm band placed on. as6 23:05 Patient has correct armband on for positive identification. Bed in low position. Call jj7 light in reach. 23:05 No provider procedures requiring assistance completed. jj7 23:15 Inserted saline lock: 20 gauge in left antecubital area, using aseptic technique. jj7 23:31 CBC with Diff Sent. jj7 23:31 CMP Sent. jj7 23:31 Lipase Sent. jj7 23:31 Urine Microscopic Only Sent. jj7 23:53 CT Stone Protocol In Process Unspecified. EDMS 04/06 01:20 IV discontinued, intact, bleeding controlled, No redness/swelling at site. jj7 Administered Medications: 04/05 23:29 Drug: fentaNYL (PF) 50 mcg Route: IVP; Site: left antecubital; jj7 21 00:56 Follow up: Response: No adverse reaction; Pain is decreased j04/05 23:30 Drug: Phenergan (promethazine) 25 mg Route: IM; Site: Other; 04/06 00:56 Follow up: Response: No adverse reaction; Nausea is decreased j 01:19 Drug: Macrobid (nitrofurantoin) 100 mg Route: PO; 01:22 Follow up: Response: No adverse reaction 7 Medication: 00:55 VIS not applicable for this client. jj7 Outcome: 01:07 Discharge ordered by MD. russell 01:20 Discharged to home ambulatory, with family. 7 01:20 Condition: improved 01:20 Discharge instructions given to patient. 01:22 Patient left the ED. jj7 Signatures: Dispatcher [employer] EDCleo Obrien FNP-C FNP-Charles Nguyen RN RN as6 Leslie Simental RN RN jj7 Katya Serna dt4
--- NOTE | 2022-04-06 01:08 | EDPHYS ---
Physician Documentation [facility] Name: Yissel Carmona Age: 46 yrs Sex: Female : 1975 Arrival Date: 04/05/2022 Time: 22:12 Bed Treatment Private MD: ED Physician Arash Yang HPI: 04/06 00:19 This 46 yrs old Female presents to ER via Ambulatory with complaints of Low kb Back Pain, Nausea/Vomiting. 00:41 The patient presents with pain that is acute. The symptoms are located in the low back. kb The pain does not radiate. The problem was sustained from unknown cause. Onset: The symptoms/episode began/occurred 3 day(s) ago. Modifying factors: The patient symptoms are alleviated by nothing, the patient symptoms are aggravated by any movement. Associated signs and symptoms: Pertinent positives: nausea, vomiting, urinary frequency. Severity of symptoms: At their worst the symptoms were moderate, in the emergency department the symptoms are unchanged. The patient has not experienced similar symptoms in the past. The patient has not recently seen a physician. Pt reports low back pain that started on Monday with urinary frequency. Nausea and vomiting started today. Historical: - Allergies: 04/05 22:18 Cipro; as6 22:18 Reglan; as6 22:18 Stadol; as6 22:18 tequin; as6 22:18 Toradol; as6 22:18 tramadol; as6 22:18 Zofran; as6 22:18 Rocephin; as6 - Home Meds: 22:18 Topamax 200 mg Oral tab 1 tab [Active]; amitriptyline 100 mg Oral tab 1 tab once daily as6 [Active]; Risperdal Oral [Active]; - PMHx: 22:18 Migraines; one kidney; as6 - PSHx: 22:18 kidney removal; Cholecystectomy; as6 - Immunization history:: Client reports receiving the 2nd dose of the Covid vaccine, [employer]. - Social history:: Smoking status: Patient denies any tobacco usage or history of. ROS: 04/06 00:19 Constitutional: Negative for fever, chills, and weight loss. kb Abdomen/GI: Positive for nausea and vomiting. Back: Positive for pain at rest, of the low back area. : Positive for urinary frequency. All other systems are negative. Exam: 00:19 Constitutional: This is a well developed, well nourished patient who is awake, alert, kb and in no acute distress. Head/Face: Normocephalic, atraumatic. ENT: Moist Mucous membranes Cardiovascular: Regular rate and rhythm with a normal S1 and S2. No gallops, murmurs, or rubs. No pulse deficits. Respiratory: Respirations even and unlabored. No increased work of breathing. Talking in full sentences Abdomen/GI: Soft, non-tender. No distention Skin: Warm, dry with normal turgor. Normal color. MS/ Extremity: Pulses equal, no cyanosis. Neurovascular intact. Full, normal range of motion. Neuro: Awake and alert, GCS 15, oriented to person, place, time, and situation. Moves all extremities. Normal gait. Psych: Awake, alert, with orientation to person, place and time. Behavior, mood, and affect are within normal limits. 00:19 Back: pain, that is moderate, of the low back area, ROM is normal. Vital Signs: 04/05 22:14 BP 119 / 71; Pulse 89; Resp 16 S; Temp 97.4(TE); Pulse Ox 100% on R/A; Weight 88.45 kg as6 (R); Height 5 ft. 2 in. (157.48 cm) (R); Pain 10/10; 23:05 BP 121 / 79; Pulse 80; Resp 20; Pulse Ox 99% ; Pain 10/10; jj7 04/06 00:17 BP 97 / 51; Pulse 73; Resp 17; Pulse Ox 98% ; Pain 3/10; jj7 01:21 BP 102 / 64; Pulse 79; Resp 17; Pulse Ox 99% ; Pain 2/10; jj7 04/05 22:14 Body Mass Index 35.67 (88.45 kg, 157.48 cm) as6 MDM: 04/05 22:14 Patient medically screened. kb 04/06 00:18 Data reviewed: vital signs, nurses notes. Data interpreted: Pulse oximetry: on room air kb is 100 %. Interpretation: normal. Counseling: I had a detailed discussion with the patient and/or guardian regarding: the historical points, exam findings, and any diagnostic results supporting the discharge/admit diagnosis, lab results, radiology results, the need for outpatient follow up, a family practitioner, to return to the emergency department if symptoms worsen or persist or if there are any questions or concerns that arise at home. 04/05 22:21 Order name: CBC with Diff; Complete Time: 23:32 kb 04/05 22:21 Order name: CMP; Complete Time: 23:52 kb 04/05 22:21 Order name: Lipase; Complete Time: 23:52 kb 04/05 22:21 Order name: Urine Microscopic Only; Complete Time: 00:01 kb 04/05 23:24 Order name: Urine Dipstick-Ancillary; Complete Time: 23:24 EDMS 04/05 23:34 Order name: Urine --Ancillary (enter results); Complete Time: 01:02 wm 04/05 22:21 Order name: IV Saline Lock; Complete Time: 23:31 kb 04/05 22:21 Order name: Labs collected and sent; Complete Time: 23:31 kb 04/05 22:21 Order name: Urine Dipstick-Ancillary (obtain specimen); Complete Time: 23:31 kb 04/05 22:21 Order name: CT Stone Protocol 04/06 00:04 Order name: Urine Culture EDMS Administered Medications: 04/05 23:29 Drug: fentaNYL (PF) 50 mcg Route: IVP; Site: left antecubital; jj7 04/06 00:56 Follow up: Response: No adverse reaction; Pain is decreased j7 04/05 23:30 Drug: Phenergan (promethazine) 25 mg Route: IM; Site: Other; jj7 04/06 00:56 Follow up: Response: No adverse reaction; Nausea is decreased jj7 01:19 Drug: Macrobid (nitrofurantoin) 100 mg Route: PO; j7 01:22 Follow up: Response: No adverse reaction jj7 Disposition: 08:36 Co-signature as Attending Physician, Arash HASTINGS was immediately available on-site ms3 in the Emergency Department for consultation in the care of the patient.. Disposition Summary: 04/06/22 01:07 Discharge Ordered Location: Home kb Condition: Stable kb Diagnosis - UTI/ Urinary tract infection, site not specified kb Followup: kb - With: Emergency Department - When: As needed - Reason: Worsening of condition Followup: kb - With: Private Physician - When: 2 - 3 days - Reason: Recheck today's complaints, Continuance of care, Re-evaluation by your physician Discharge Instructions: - Discharge Summary Sheet kb - Urinary Tract Infection, Adult, [id number] kb Forms: - Medication Reconciliation Form kb - Thank You Letter kb - Work release form kb - Antibiotic Education kb - Prescription Opioid Use kb Prescriptions: - Macrobid 100 mg Oral Capsule - take 1 capsule by ORAL route every 12 hours for 10 days; 20 capsule; Refills: kb 0, Product Selection Permitted Signatures: Dispatcher [employer] EDMS Cleo Calhoun, [employer] Arash Yang DO DO ms3 Charles Pineda RN RN as6 Leslie Simental RN RN jj7
[2022-04-06] MEDS ORDERED: NITROFURAN MACRO 100 MG CAP PO ONE (01:25)
--- NOTE | 2022-04-07 11:58 | RAD REPORT ---
EXAM DESCRIPTION: CT - Stone Protocol - 04/05/2022 11:51 pm CLINICAL HISTORY: 46-year-old female with flank pain and frequency. COMPARISON: None. TECHNIQUE: CT of the abdomen and pelvis was performed without intravenous or oral contrast. Multipla ирина reformatted images were provided. This exam was performed according to our departmental dose opti mization program which includes use of automated exposure control, adjustment of the mA and/or kV acc ording to patient size and/or use of iterative reconstruction technique. FINDINGS: Evaluation of solid organ pathology is limited secondary to lack of intravenous contrast. Within these limitations, the following observations are made. Chest: Evaluation through the lung bases reveals no focal opacity, pleural effusion or pneumothorax. Heart size is within normal limits. No pericardial effusion. Abdomen and pelvis: The liver, pancreas, spleen, and bilateral adrenal glands are within normal limit s. Nonobstructive calcification within the lower pole of the LEFT kidney measuring 5 mm compatible with nonobstructing calculus. Surgical absence of the RIGHT kidney. Surgical clips at the level of the gallbladder fossa status post cholecystectomy. The vessels are normal in caliber. No abdominopelvic lymph nodes are noted to be pathologically enlarged by CT measurement criteria. The bowel is within normal limits without abnormal bowel wall thickness or bowel dilation. Diverticul ar disease without findings to suggest diverticulitis. No free air. No free abdominopelvic fluid collections. The appendix is within normal limits. The uterus demonstrates a focus of fundal hypoattenuation raising the possibility of uterine leiomyom a. Surgical clips at the level of the RIGHT adnexa without clear visualization of a RIGHT ovary. Poss ible associated cystic structure may represent a follicle or ovarian cyst measuring 1.5 cm. The LEFT ovary demonstrates a hypoattenuating cystic type structure suggestive of a dominant follicle versus c yst measuring 2 cm. Best practice guidelines: Ovarian simple-appearing cyst. No follow-up imaging is recommended. Reference: JACR 2019;17(2):248-254 The osseous structures are within normal limits. IMPRESSION: 1. No specific acute intra-abdominal findings are noted to suggest etiology of the pat ient's abdominal pain. 2. Nonobstructive calcification within the lower pole of the LEFT kidney measuring 5 mm compatible with nonobstructing calculus. 3. The uterus demonstrates a focus of fundal hypoattenuation raising the possibility of uterine lei omyoma. 4. Diverticular disease without findings to suggest diverticulitis. Electronically signed by: Erica Mcleod MD 04/06/2022 12:17 AM CDT Due to temporary technical issues with the PACS/Fluency reporting system, reports are being signed by the in house radiologists without review as a courtesy to insure prompt reporting. The interpreting radiologist is fully responsible for the content of the report.
[2022-04-07 13:12] VITALS: TEMP 97.4
[2022-04-07 13:21] VITALS: BP 97/51; O2SAT 98
== END 2022-04-06 01:22 | disposition home or self-care (01) ==
LOC: ER 22:08
DX: N39.0 Urinary tract infection, site not specified (principal); Z90.5 Acquired absence of kidney
CPT/HCPCS: 36415; 74176; 76377; 80053; 81003; 81015; 81025; 83690; 85025; 87086; 87088; J2405; J2550; J3010

== ENCOUNTER 2023-02-11 09:45 | Emergency (ER) | payer BC, OTHER, SELFPAY ==
--- OUTSIDE RECORDS SUMMARY | 2023-02-11 09:55 | XMS REPORT | Continuity of Care Document ---
:1975 Author Organization [facility] t Address [address] [place] [address] Care Team Providers Name Role Phone Dylan Adorno Primary Care Physician SUPRIYA PFEIFFER Attending Clinician Unavailable Supriya Pfeiffer DO Attending Clinician DEBBIE BOYCE Attending Clinician Unavailable Debbie Boyce MD Attending Clinician MARCIO AUGUSTINE Attending Clinician Unavailable Marcio Augustine DO Attending Clinician Gagandeep Izaguirre Attending Clinician Gagandeep RUTHERFORD Attending Clinician Unavailable Doctor Unassigned, [place] Attending Clinician Unavailable Rafael Syed Attending Clinician DEBBIE BOYCE Admitting Clinician Unavailable MARCIO AUGUSTINE Admitting Clinician Unavailable Payers Payer Name Policy Type Policy Number Effective Date Expiration Date [facility] [id number] 2018 CHOICE MEDICAID 00:00:00 Problems Condition Condition Condition Status Onset Resolution Last Treating Co mments Source Name Details Category Date Date Treatment Clinician Date Acute Acute Disease Active 2021-07 Univers cystitis cystitis 2-30 ity of without without 00:00: [place] hematuria hematuria 00 Medi laya Branch Strain of Strain of Disease Active 2021-07 Uni vers lumbar lumbar 2-30 ity of region, region, 00:00: [place] initial initial 00 Medical encounter encounter Bran ch Dysuria Dysuria Disease Active 2021-07 Univers 2-30 ity of 00:00: [place] 00 Medical Branch Urinary Urinary Disease Active 2021-07 [facility] frequency frequency 2-30 ity of 00:00: [place] 00 Medical Branch Kidney Kidney Disease Active 2021-07 Univers stone stone 2-30 ity of 00:00: [place] 00 Medical Branch Acute Acute Disease Active 2021-07 Univers intractabl intractabl 2-30 it y of e e 00:00: [place] tension-ty tension-ty 00 Me dical pe pe Branch headache headache No known No known Disease Unive rs active active ity of problems problems [facility] Allergies, Adverse Reactions, Alerts Allergy Allergy Status Severity Reaction(s) Onset Inactive Treating Comm ents Source Name Type Date Date Clinician METOCLOP DRUG Active Hives 2021-07 Univers RAMIDE INGREDI 0-16 ity of 00:00: [place] 00 Medical Branch GATIFLOX DRUG Active Unknown-Cmnt 2021-07 Un davin ACIN INGREDI 0-16 ity of 00:00: [place] 00 Medical Branch CEFTRIAX DRUG Active Rash 2021-07 Univers ONE INGREDI 0-16 ity of 00:00: [place] 00 Medical Branch Metoclop Propensi Active Hives 2021-07 Univer s ramide ty to 0-16 ity of adverse 00:00: [place] reaction 00 Medical s Branch Ceftriax Propensi Active Rash 2021-07 Univer s one ty to 0-16 ity of adverse 00:00: [place] reaction 00 Medical s Branch Gatiflox Propensi Active Unknown - 2021-07 Uni vers acin ty to See comments 0-16 ity of adverse 00:00: [place] reaction 00 Medical s Branch n Propensi Active ty to 5-19 adverse 00:00: reaction 00 to drug Cipro - Propensi Active Oral ty to 3-05 adverse 00:00: reaction 00 to drug Tramadol Propensi Active Rash Univer s ty to 7-19 ity of adverse 00:00: [place] reaction 00 Medical s Branch Ondanset Propensi Active Rash Univer s yrn (Pf) ty to 7-19 ity of In adverse 00:00: [place] Dextrose reaction 00 Medica l s Branch Ciproflo Propensi Active Hives 2020-0 Univer s xacin ty to 7-19 ity [...] Stop Date Quantity Comments Source Exposure to 2022-08-21 2022-08-31 Not sure [facility] SARS-CoV-2 (event) 00:00:00 10:48:00 Medica l Branch Sex Ass[birth year] [facility] y of [place] 00:00:00 00:00:00 Medical Branch Smoking Status Start Date Stop Date Source Tobacco smoking consumption [facility] Medical unknown Branch Medications Ordered Filled Start Stop Current Ordering Indication Dosage Frequency Signature Comments Components Source Medication Medication Date Date Medication? Clinician (SIG) Name Name morpHINE (4 2021-07- No 4mg 4 mg, Slow Univers mg/mL) 2-30 12-30 IV Push, ity of injection 4 20:45: 21:06 ONCE, 1 [place] mg 00 :00 dose, On Medical Fri Branch 07/15/22 at 1445, STAT iopamidol 2021-07- No [id number] 84mL 84 mL, Univers (ISOVUE 2-30 12-30 Intravenou ity o f 370-500 mL) 20:45: 19:46 s, ONCE, 1 [place] injection 00 :00 dose, On Medica l 84 mL Fri Branch 07/15/22 at 1445, Routine butalbital- 2021-07- No 1{tbl} 1 tablet, Univers acetaminoph 30 12-30 Oral, ONCE i ty of en-caff 19:15: 19:30 NOW, 1 [place] (ESGIC) 00 :00 dose, On Medical 50-325-40 Fri Branch mg tablet 1 07/15/22 tablet at 1315, Routine diphenhydrA 2021-07- No 25mg 25 mg, Uni vers MINE 2-30 12-30 Slow IV ity of (BENADRYL) 18:30: 19:31 Push, [place] injection 00 :00 ONCE, 1 Medical 25 mg dose, On Branch 07/15/22 at 1230, STAT proMETHazin 2021-07 No 12.5mg 12.5 mg, Univers e 230 12-30 IV ity of (PHENERGAN) 18:30: 19:34 Piggyback, [place] 12.5 mg in 00 :00 ONCE, 1 Medica l NaCl 0.9% dose, On Branch (NS) 50 mL Fri IV 07/15/22 piggyback at 1230, LISE NaCl 0.9% 2021-07- No 1000mL at 999 Uni vers (NS) bolus 2-30 12-30 mL/hr, ity of infusion 18:30: 22:03 1,000 mL, [place] as 1,000 mL 00 :00 IV Medical Infusion, Branch ONCE, 1 dose, On Mon07/15/22 at 1230, STAT proMETHazin 2021-07 Yes [id number] 25mg Take 1 Univers e 25 mg 2-30 tablet by ity of tablet 00:00: mouth [place] 00 every 6 Medical (six) Branch hours as needed for Nausea and Vomiting (N/V) for up to 10 doses. proMETHazin 2021-07 Yes [id number] 25mg Take 1 Univers e 25 mg 2-30 tablet by ity of tablet 00:00: mouth [place] 00 every 6 Medical (six) Branch hours as needed for Nausea and Vomiting (N/V) for up to 10 doses. Nitrofurant 2021-07- No [id number] 100mg Take 1 Univers oin&Nit. 2-30 -07 capsule by ity of Macrocryst 00:00: 05:59 mouth in [place] (MACROBID) 00 :00 the Medical 100 mg morning Branch capsule and 1 capsule in the evening. Do all this for 7 days. cyclobenzap 2021-07- No [id number] 10mg Take 2 Univers rine 5 mg 2-30 -05 tablets by ity of tablet 00:00: 05:59 mouth 3 [place] 00 :00 (three) Medical times Branch daily as needed for Muscle Spasms for up to 5 days. oxybutynin 2021-07 Yes 5mg 5 mg, Univer s chloride 0-17 Oral, BID, ity o f (DITROPAN) 01:00: First dose [place] tablet 5 mg 00 on Sun Medica l 05/01/22 Branch at 2000, Until Discontinu ed, Routine ketorolac 2021-07- No 15mg 15 mg, Unive rs (TORADOL) 0-16 10-17 Slow IV ity of injection 23:00: 22:59 Push, Q6H, [place] 15 mg 00 :00 4 doses, Medical First dose Branch on 05/01/22 at 1800, Last dose on 05/02/22 at 1200, Routine HYDROcodone 2021-07- No 1{tbl} 1 tablet, Univers -acetaminop 0-16 10-16 Oral, ity of hen (NORCO) 19:30: 18:30 ONCE, 1 [place] 10-325 mg 00 :00 dose, On Medica l tablet 1 Sun Branch tablet 05/01/22 at 1430, Routine proMETHazin 2021-07- No 12.5mg 12.5 mg, Univers e 0-16 10-16 IV ity of (PHENERGAN) 18:30: 18:29 Piggyback, [place] 12.5 mg in 00 :00 ONCE, 1 Medica l NaCl 0.9% dose, On Branch (NS) 50 mL Sun IV 05/01/22 piggyback at 1330, LISE sulfamethox 2021-07 Yes [id number] 1{tbl} Take 1 Univers azole-trime 0-16 tablet by ity of thoprim 00:00: mouth [place] 800-160 mg 00 every 12 Medic al per tablet (twelve) Branc h hours. proMETHazin 2021-07 Yes [id number] 25mg Take 1 Univers e 25 mg 0-16 tablet by ity of tablet 00:00: mouth [place] 00 every 6 Medical (six) Branch hours as needed for Nausea and Vomiting (N/V). oxybutynin 2021-07 Yes [id number] 5mg Take 1 U nivers XL 5 mg 24 0-16 tablet by ity of hr tablet 00:00: [place] the Medical morning. Branch phenazopyri 2021-07 Yes [id number] 200mg Take 1 Univers dine 200 mg 0-16 tablet by ity of tablet 00:00: mouth in [place] the Medical morning Branch and 1 tablet at noon and 1 tablet in the evening. sulfamethox 2021-07 Yes [id number] 1{tbl} Take 1 Univers azole-trime 0-16 tablet by ity of thoprim 00:00: mouth [place] 800-160 mg 00 every 12 Medic al per tablet (twelve) Branc h hours. proMETHazin 2021-07 Yes [id number] 25mg Take 1 Univers e 25 mg 0-16 tablet by ity of tablet 00:00: mouth [place] 00 every 6 Medical (six) Branch hours as needed for Nausea and Vomiting (N/V). oxybutynin 2021-07 Yes [id number] 5mg Take 1 U nivers XL 5 mg 24 0-16 tablet by ity of hr tablet 00:00: mouth in [facility] 00 the Medical morning. Branch phenazopyri 2021-07 Yes [id number] 200mg Take 1 Univers dine 200 mg 0-16 tablet by ity of tablet 00:00: mouth in [place] the Medical morning Branch and 1 tablet at noon and 1 tablet in the evening. sulfamethox 2021- Yes [id number] 1{tbl} Take 1 Univers azole-trime 0-16 tablet by ity of thoprim 00:00: mouth [place] 800-160 mg 00 every 12 Medic al per tablet (twelve) Branc h hours. proMETHazin 2021-07 Yes [id number] 25mg Take 1 Univers e 25 mg 0-16 tablet by ity of tablet 00:00: mouth [place] 00 every 6 Medical (six) Branch hours as needed for Nausea and Vomiting (N/V). oxybutynin 2021-07 Yes [id number] 5mg Take 1 U nivers XL 5 mg 24 0-16 tablet by ity of hr tablet 00:00: mouth in [place] [address] the Medical morning. Branch phenazopyri 2021-07 Yes [id number] 200mg Take 1 Univers dine 200 mg 0-16 tablet by ity of tablet 00:00: mouth in [place] [address] the Medical morning Branch and 1 tablet at noon and 1 tablet in the evening. TAKE 1 2021-0 No TABLET 9-27 EVERY 6 TO 00:00: 8 HOURS 00 NEEDED NAUSEA. TAKE 1 2021-0 No TABLET 9-27 EVERY 6 TO 00:00: 8 HOURS 00 NEEDED NAUSEA. TAKE 1 2021-0 No TABLET BY 9-02 MOUTH EVERY 00:00: 8 HOURS 00 NEEDED FOR MUSCLE SPASMS TAKE 1 2021-0 No TABLET BY 9-02 MOUTH EVERY 00:00: 8 HOURS 00 NEEDED FOR MUSCLE SPASMS TAKE 10 ML 2-0 No [id number] EVERY 6 TO 8-15 8 HOURS 00:00: NEEDED FOR 00 COUGH TAKE 10 ML 2022-0 No [id number] EVERY 6 TO 8-15 8 HOURS 00:00: NEEDED FOR 00 COUGH TAKE 10 ML 2-0 No [id number] EVERY 6 TO 8-15 8 HOURS 00:00: NEEDED FOR 00 COUGH TAKE 10 ML 2022-0 No [id number] EVERY 6 TO 8-15 8 HOURS 00:00: NEEDED FOR 00 COUGH TAKE 10 ML 2022-0 No [id number] EVERY 6 TO 8-15 8 HOURS 00:00: NEEDED FOR 00 COUGH TAKE 10 ML 2022-0 No [id number] EVERY 6 TO 8-15 8 HOURS 00:00: NEEDED FOR 00 COUGH Dose 2-0 No Unknown 5-10 00:00: 00 Dose 2-0 No Unknown 5-10 00:00: 00 Dose 2022-0 No Unknown 5-10 00:00: 00 Dose 2022-0 No Unknown 5-10 00:00: 00 Dose 2022-0 No Unknown 5-10 00:00: 00 Dose 2022-0 No Unknown 5-10 00:00: 00 Dose 2022-0 No Unknown 5-10 00:00: 00 Dose 2022-0 No Unknown 5-10 00:00: 00 Dose 2022-0 No Unknown 5-10 00:00: 00 topiramate 2022-0 No 1mg 200 mg 5-09 tablet 00:00: 00 Bactrim DS 2022-0 No 1mg 800 mg-160 5-09 mg tablet 00:00: 00 amitriptyli 2022-0 No 1mg ne 100 mg 5-09 tablet 00:00: 00 rizatriptan 2022-0 No 1mg 5 mg tablet 5-09 00:00: 00 topiramate 2022-0 No 1mg 200 mg 5-09 tablet 00:00: 00 Dose 2022-0 No Unknown 5-09 00:00: 00 amitriptyli 2022-0 No 1mg ne 100 mg 5-09 tablet 00:00: 00 rizatriptan 2022-0 No 1mg 5 mg tablet 5-09 00:00: 00 topiramate 2022-0 No 1mg 200 mg 5-09 tablet 00:00: 00 Dose 2022-0 No Unknown 5-09 00:00: 00 amitriptyli 2022-0 No 1mg ne 100 mg 5-09 tablet 00:00: 00 rizatriptan 2022-0 No 1mg 5 mg tablet 5-09 00:00: [...] 2022-0 No Unknown 3-05 00:00: 00 sulfamethox 2022-0 No 1mg azole 800 2-08 mg-trimetho 00:00: prim 160 mg 00 tablet cyclobenzap 2-0 No 1mg rine 10 mg 2-08 tablet 00:00: 00 ibuprofen 2022-0 No 1mg 800 mg 2-08 tablet 00:00: 00 sulfamethox 2022-0 No 1mg azole 800 2-08 mg-trimetho 00:00: prim 160 mg 00 tablet cyclobenzap 2022-0 No 1mg rine 10 mg 2-08 tablet 00:00: 00 ibuprofen 2022-0 No 1mg 800 mg 2-08 tablet 00:00: 00 sulfamethox 2022-0 No 1mg azole 800 2-08 mg-trimetho 00:00: prim 160 mg 00 tablet cyclobenzap 2022-0 No 1mg rine 10 mg 2-08 tablet 00:00: 00 ibuprofen 2022-0 No 1mg 800 mg 2-08 tablet 00:00: 00 topiramate 1-1 No 1mg 200 mg 1-30 tablet 00:00: 00 amitriptyli 1-1 No 1mg ne 100 mg 1-30 tablet 00:00: 00 Dose 1-1 No Unknown 1-30 00:00: 00 topiramate 1-1 No 1mg 200 mg 1-30 tablet 00:00: 00 amitriptyli 1-1 No 1mg ne 100 mg 1-30 tablet 00:00: 00 Dose 1-1 No Unknown 1-30 00:00: 00 topiramate 1-1 No 1mg 200 mg 1-30 tablet 00:00: 00 amitriptyli 1-1 No 1mg ne 100 mg 1-30 tablet 00:00: 00 Dose 1-1 No Unknown 1-30 00:00: 00 rizatriptan 2021-0 No 1mg 5 mg tablet 03-05 00:00: 00 rizatriptan 1-0 No 1mg 5 mg tablet 03-05 00:00: 00 rizatriptan 1-0 No 1mg 5 mg tablet 03-05 00:00: 00 topiramate 1-0 No 1mg 200 mg 8-19 tablet 00:00: 00 amitriptyli 1-0 No 1mg ne 100 mg 8-19 tablet 00:00: 00 rizatriptan 2021-0 No 1mg 5 mg tablet 03-04 00:00: 00 promethazin 2021-0 No 1mg e 25 mg 8-19 tablet 00:00: 00 topiramate 2021-0 No 1mg 200 mg 8-19 tablet 00:00: 00 amitriptyli 1-0 No 1mg ne 100 mg 8-19 tablet 00:00: 00 rizatriptan 2021-0 No 1mg 5 mg tablet 03-04 00:00: 00 promethazin 2021-0 No 1mg e 25 mg 8-19 tablet 00:00: 00 topiramate 2021-0 No 1mg 200 mg 8-19 tablet 00:00: 00 amitriptyli 1-0 No 1mg ne 100 mg 8-19 tablet 00:00: 00 rizatriptan 2021-0 No 1mg 5 mg tablet 03-04 00:00: 00 promethazin No 1mg e 25 mg 8-19 tablet 00:00: 00 proMETHazin 2020- No 25mg 25 mg, Uni [...] uration of Therapy: 10 days NaCl 0.9% No 1000mL at 999 Uni vers (NS) bolus 01-04 mL/hr, ity of infusion 19:15: 19:35 1,000 mL, Jose Luis as 1,000 mL 00 :00 IV Medical Infusion, Branch ONCE, 1 dose, 01/04/21 at 1415, STAT proMETHazin Yes [id number] 25mg Take 1 Univers e 25 mg 01-04 tablet by ity of tablet 00:00: mouth [place] 00 every 6 Medical (six) Branch hours as needed for Nausea and Vomiting (N/V). proMETHazin 2021- No [id number] 25mg Take 1 Univers e 25 mg 01-04 10-16 tablet by ity of tablet 00:00: 00:00 mouth [place] 00 :00 every 6 Medical (six) Branch hours as needed for Nausea and Vomiting (N/V). cephALEXin 2020- No [id number] 500mg Take 1 Univers (KEFLEX) 01-04 07-02 capsule by ity of 500 mg 00:00: 04:59 mouth 3 [place] capsule 00 :00 (three) Medical times Branch daily for 10 days. Vitamin D3 No 1(1,000 25 mcg 5-28 unit) (1,000 00:00: unit) 00 capsule Vitamin D3 2021-0 No 1(1,000 25 mcg 5-28 unit) (1,000 00:00: unit) 00 capsule Vitamin D3 1-0 No 1(1,000 25 mcg 5-28 unit) (1,000 00:00: unit) 00 capsule cetirizine 1-0 No 1mg 10 mg 5-25 tablet 00:00: 00 cetirizine 1-0 No 1mg 10 mg 5-25 tablet 00:00: 00 cetirizine 1-0 No 1mg 10 mg 5-25 tablet 00:00: 00 topiramate 1-0 No 1mg 200 mg 5-13 tablet 00:00: 00 amitriptyli 1-0 No 1mg ne 100 mg 5-13 tablet 00:00: 00 topiramate 1-0 No 1mg 200 mg 5-13 tablet 00:00: 00 promethazin 1-0 No 1mg e 25 mg 5-13 tablet 00:00: 00 amitriptyli 1-0 No 1mg ne 100 mg 5-13 tablet 00:00: 00 promethazin 1-0 No 1mg e 25 mg 5-13 tablet 00:00: 00 topiramate 1-0 No 1mg 200 mg 5-13 tablet 00:00: 00 amitriptyli 1-0 No 1mg ne 100 mg 5-13 tablet 00:00: 00 promethazin 1-0 No 1mg e 25 mg 5-13 tablet 00:00: 00 topiramate 1-0 No 1mg 200 mg 2-10 tablet 00:00: 00 topiramate 1-0 No 1mg 200 mg 2-10 tablet 00:00: 00 topiramate 1-0 No 1mg 200 mg 2-10 tablet 00:00: 00 amitriptyli 1-0 No 1mg ne 100 mg 2-05 tablet 00:00: 00 topiramate 1-0 No 1mg XR 150 mg 2-05 capsule 00:00: spencerex 00 tended release 24 hr amitriptyli 1-0 No 1mg ne 100 mg 2-05 tablet 00:00: 00 topiramate 1-0 No 1mg XR 150 mg 2-05 capsule 00:00: sprinkle,ex 00 tended release 24 hr amitriptyli 2020-0 No 1mg ne 100 mg 2-05 tablet 00:00: 00 topiramate 2020-0 No 1mg XR 150 mg 2-05 capsule 00:00: spencerex 00 tended release 24 hr metronidazo 2019-1 No 1mg le 500 mg 2-14 tablet 00:00: 00 metronidazo 2020-1 No 1mg le 500 mg 2-14 tablet 00:00: 00 metronidazo 2019-1 No 1mg le 500 mg 2-14 tablet 00:00: 00 topiramate 2020-1 No 1mg 50 mg 2-10 tablet 00:00: 00 amitriptyli 2019-1 No 1mg ne 100 mg 2-10 tablet 00:00: 00 topiramate 2020-1 No 1mg 50 mg 2-10 tablet 00:00: 00 amitriptyli 2019-1 No 1mg ne 100 mg 2-10 tablet 00:00: 00 topiramate 2020-1 No 1mg 50 mg 2-10 tablet 00:00: 00 amitriptyli 2019-1 No 1mg ne 100 mg 2-10 tablet 00:00: 00 topiramate 2020-0 No 1mg 50 mg 8-22 tablet 00:00: 00 amitriptyli 2020-0 No 1mg ne 100 mg 8-22 tablet 00:00: 00 promethazin 2020-0 No 1mg e 25 mg 8-22 tablet 00:00: 00 omeprazole 2020-0 No 1mg 40 mg 8-22 capsule,del 00:00: ayed 00 release topiramate 2020-0 No 1mg 50 mg 8-22 tablet 00:00: 00 amitriptyli 2020-0 No 1mg ne 100 mg 8-22 tablet 00:00: 00 promethazin 2020-0 No 1mg e 25 mg 8-22 tablet 00:00: 00 omeprazole 2020-0 No 1mg 40 mg 8-22 capsule,del 00:00: ayed 00 release topiramate 2020-0 No 1mg 50 mg 8-22 tablet 00:00: 00 amitriptyli 2020-0 No 1mg ne 100 mg 8-22 tablet 00:00: 00 promethazin 2020-0 No 1mg e 25 mg 8-22 tablet 00:00: 00 omeprazole 2020-0 No 1mg 40 mg 8-22 capsule,del 00:00: ayed 00 release omeprazole 2020-0 No 1mg 40 mg 7-23 capsule,del 00:00: ayed 00 release omeprazole 2020-0 No 1mg 40 mg 7-23 capsule,del 00:00: ayed 00 release omeprazole 2020-0 No 1mg 40 mg 7-23 capsule,del 00:00: ayed 00 release proMETHazin 2019-0 2019- No 12.5mg 12.5 mg, Univers e 02-02 IV ity of (PHENERGAN) 00:45: 23:54 Piggyback, [place] 12.5 mg in 00 :00 ONCE, 1 Medica l NaCl 0.9% dose, [place] Bran h (NS) 50 mL 02/02/20 at piggyback 1945, 50 mL NaCl 0.9% 0 2020- No 1000mL at 999 Uni vers (NS) bolus 02-01 mL/hr, ity of infusion 22:30: 23:48 1,000 mL, Jose Luis as 1,000 mL 00 :00 IV Medical Infusion, Branch ONCE, 1 dose, [place] 02/02/20 at 1730, STAT azithromyci 2020-0 Yes [id number] 250mg Take 1 Univers n 250 mg 7- [id number] tablet by ity of tablet 00:00: mouth [place] 00 daily. Medical Take 500 Branch mg day 1, then 250 mg days 2 to 5. benzonatate 2020-0 Yes [id number] 100mg Take 1 Univers 100 mg 7- [id number] capsule by ity of capsule 00:00: mouth 3 [place] 00 (three) Medical times Branch daily as needed for Cough. azithromyci 2020-0 Yes [id number] 250mg Take 1 Univers n 250 mg 7-19 tablet by ity of tablet 00:00: mouth [place] 00 daily. Medical Take 500 Branch mg day 1, then 250 mg days 2 to 5. azithromyci 2020-0 Yes [id number] 250mg Take 1 Univers n 250 mg 7-19 [id number] tablet by ity of tablet 00:00: mouth [place] 00 daily. Medical Take 500 Branch mg day 1, then 250 mg days 2 to 5. benzonatate 2020-0 Yes [id number] 100mg Take 1 Univers 100 mg 7-19 [id number] capsule by ity of capsule 00:00: mouth 3 (three) Medical times Branch daily as needed for Cough. benzonatate 2020-0 Yes [id number] 100mg Take 1 Univers 100 mg 7-19 capsule by ity of capsule 00:00: mouth 3 (three) Medical times Branch daily as needed for Cough. proMETHazin 2020-0 Yes [id number] 25mg Take 1 Univers e 25 mg 7-19 tablet by ity of tablet 00:00: mouth [place] 00 every 4 Medical (four) Branch hours as needed for Nausea and Vomiting (N/V). azithromyci 2020-0 Yes [id number] 250mg Take 1 Univers n 250 mg 7-19 [id number] tablet by ity of tablet 00:00: mouth [place] 00 daily. Medical Take 500 Branch mg day 1, then 250 mg days 2 to 5. benzonatate 2020-0 Yes [id number] 100mg Take 1 Univers 100 mg 7-19 [id number] capsule by ity of capsule 00:00: mouth (three) Medical times Branch daily as needed for Cough. azithromyci 2020-0 Yes [id number] 250mg Take 1 Univers n 250 mg 7-19 [id number] tablet by ity of tablet 00:00: mouth [place] 00 daily. Medical Take 500 Branch mg day 1, then 250 mg days 2 to 5. benzonatate 2020-0 Yes [id number] 100mg Take 1 Univers 100 mg 7-19 [id number] capsule by ity of capsule 00:00: mouth 3 (three) Medical times Branch daily as needed for Cough. proMETHazin 2020-0 Yes [id number] 25mg Take 1 Univers e 25 mg 7-19 [id number] tablet by ity of tablet 00:00: mouth [place] 00 every 4 Medical (four) Branch hours as needed for Nausea and Vomiting (N/V). azithromyci 2020-0 Yes [id number] 250mg Take 1 Univers n 250 mg 7-19 [id number] tablet by ity of tablet 00:00: mouth [place] 00 daily. Medical Take 500 Branch mg day 1, then 250 mg days 2 to 5. benzonatate 2020-0 Yes [id number] 100mg Take 1 Univers 100 mg 7-19 [id number] capsule by ity of capsule 00:00: mouth 3 [place] 00 (three) Medical times Branch daily as needed for Cough. proMETHazin 2020-0 1- No [id number] 25mg Take 1 Univers e 25 mg 02-01 [id number] tablet by ity of tablet 00:00: 00:00 mouth [place] 00 :00 every 4 Medical (four) Branch hours as needed for Nausea and Vomiting (N/V). topiramate 2020-0 No 1mg 50 mg 5-12 tablet 00:00: 00 amitriptyli 2020-0 No 1mg ne 100 mg 5-12 tablet 00:00: 00 topiramate 2020-0 No 1mg 50 mg 5-12 tablet 00:00: 00 amitriptyli 2020-0 No 1mg ne 100 mg 5-12 tablet 00:00: 00 topiramate 2020-0 No 1mg 50 mg 5-12 tablet 00:00: 00 amitriptyli 2020-0 No 1mg ne 100 mg 5-12 tablet 00:00: 00 Tricor 48 2019-0 No 1mg mg tablet 7- 00:00: 00 Tricor 48 2019-0 No 1mg mg tablet 7- 00:00: 00 Tricor 48 2019-0 No 1mg mg tablet 7- 00:00: 00 amitriptyli 2019-0 No 1mg ne [...] 1mg 45 mg 2-20 tablet 00:00: 00 amitriptyli 2019-0 No 1mg ne 100 mg 2-20 tablet 00:00: 00 terbinafine 2019-0 No 1mg HCl 250 mg 2-20 tablet 00:00: 00 mirtazapine 2019-0 No 1mg 45 mg 2-20 tablet 00:00: 00 amitriptyli 2019-0 No 1mg ne 100 mg 2-20 tablet 00:00: 00 terbinafine 2019-0 No 1mg HCl 250 mg 2-20 tablet 00:00: 00 mirtazapine 2019-0 No 1mg 45 mg 2-20 tablet 00:00: 00 mirtazapine 2019-0 No 1mg 30 mg 1-23 tablet 00:00: 00 mirtazapine 2019-0 No 1mg 30 mg 1-23 tablet 00:00: 00 mirtazapine 2019-0 No 1mg 30 mg 1-23 tablet 00:00: 00 amitriptyli 2019-0 No 1mg ne 100 mg 1-16 tablet 00:00: 00 amitriptyli 2019-0 No 1mg ne 100 mg 1-16 tablet 00:00: 00 amitriptyli 2019-0 No 1mg ne 100 mg 1-16 tablet 00:00: 00 Immunizations Ordered Filled Immunization Date Status Comments [facility] e Immunization Name Name SARS-COV-2 COVID-19 2020-12-05 Completed Unive rsity of PFIZER VACCINE 00:00:00 [facility] SARS-COV-2 COVID-19 2020-12-05 Completed Unive rsity of PFIZER VACCINE 00:00:00 [facility] SARS-COV-2 COVID-19 2020-12-05 Completed Unive rsity of PFIZER VACCINE 00:00:00 [facility] SARS-COV-2 COVID-19 2020-12-05 Completed Unive rsity of PFIZER VACCINE 00:00:00 [facility] SARS-COV-2 COVID-19 2020-12-05 Completed Unive rsity of PFIZER VACCINE 00:00:00 [facility] SARS-COV-2 COVID-19 2020-11-07 Completed Unive rsity of PFIZER VACCINE 00:00:00 [facility] SARS-COV-2 COVID-19 2020-11-07 Completed Unive rsity of PFIZER VACCINE 00:00:00 [facility] SARS-COV-2 COVID-19 2020-11-07 Completed Unive rsity of PFIZER VACCINE 00:00:00 [facility] SARS-COV-2 COVID-19 2020-11-07 Completed Unive rsity of PFIZER VACCINE 00:00:00 [facility] SARS-COV-2 COVID-19 2020-11-07 Completed Unive rsity of PFIZER VACCINE 00:00:00 [facility] Influenza, 2018-09-05 Completed injectable 00:00:00 Influenza, 2018-09-05 Completed injectable 00:00:00 Influenza, 2018-09-05 Completed injectable 00:00:00 Vital Signs Vital Name Observation Time Observation Value Comments Source Systolic blood 2022-08-31 16:50:00 125 mm[Hg] Univer sity of pressure [facility] Diastolic blood 2022-08-31 16:50:00 90 mm[Hg] Unive rsity of pressure [facility] Heart rate 2022-08-31 16:50:00 118 /min [facility] Body temperature 2022-08-31 16:50:00 36.83 [facility] 2022-08-31 16:50:00 20 /min [facility] Body weight 2022-08-31 16:50:00 90.719 kg [facility] BMI 2022-08-31 16:50:00 36.58 kg/m2 [facility] Oxygen saturation in 2022-08-31 16:50:00 99 /min [facility] Arterial blood by [facility] Pulse oximetry Branch Systolic blood 2022-07-15 22:04:07 111 mm[Hg] Univer sity of pressure [facility] Diastolic blood 2022-07-15 22:04:07 92 mm[Hg] Unive rsity of pressure [place] [facility] Heart rate 2022-07-15 22:04:07 88 /min [facility] [place] [facility] Respiratory rate 2022-07-15 22:04:07 16 /min [facility] ers[facility] [place] [facility] Oxygen saturation in 2022-07-15 22:04:07 100 /min University of Arterial blood by [facility] Pulse oximetry Branch Body temperature 2022-07-15 17:30:00 37 [place] [facility] [place] [facility] Body height 2022-07-15 17:30:00 157.5 cm [facility] [place] [facility] Body weight 2022-07-15 17:30:00 90.719 kg [facility] [place] [facility] BMI 2022-07-15 17:30:00 36.58 kg/m2 [facility] [place] [facility] Systolic blood 2022-05-01 19:30:43 112 mm[Hg] Univer sity of pressure [place] [facility] Branch Diastolic blood 2022-05-01 19:30:43 76 mm[Hg] [facility] Heart rate 2022-05-01 19:30:43 88 /min [facility] Body temperature 2022-05-01 19:30:43 37 Carmen [facility] Respiratory rate 2022-05-01 19:30:43 18 /min [facility] Oxygen saturation in 2022-05-01 19:30:43 100 /min [facility] Arterial blood by [facility] Pulse oximetry Branch Body weight 2022-05-01 17:38:00 87.544 kg [facility] BMI 2022-05-01 17:38:00 35.30 kg/m2 [facility] Systolic blood 2021-01-04 19:00:00 109 mm[Hg] [facility] Diastolic blood 2021-01-04 19:00:00 67 mm[Hg] [facility] Heart rate 2021-01-04 19:00:00 88 /min [facility] Respiratory rate 2021-01-04 19:00:00 19 /min [facility] Oxygen saturation in 2021-01-04 19:00:00 100 /min [facility] Arterial blood by [facility] Pulse oximetry Branch Body temperature 2021-01-04 17:31:00 37.17 Carmen [facility] [place] [facility] Body weight 2021-01-04 17:31:00 87.544 kg [facility] BMI 2021-01-04 17:31:00 35.30 kg/m2 [facility] Systolic blood 2020-02-03 00:13:53 134 mm[Hg] [facility] Diastolic blood 2020-02-03 00:13:53 89 mm[Hg] [facility] Heart rate 2020-02-03 00:13:53 101 /min [facility] Respiratory rate 2020-02-03 00:13:53 20 /min [facility] Oxygen saturation in 2020-02-03 00:13:53 97 /min [facility] Arterial blood by [facility] Pulse oximetry Branch Body temperature 2020-02-02 18:46:00 37.83 Carmen [facility] Body weight 2020-02-02 18:46:00 84.823 kg [facility] BMI 2020-02-02 18:46:00 34.20 kg/m2 [facility] Body height 2020-02-02 18:45:00 157.5 cm [facility] Systolic blood 2020-02-03 00:13:53 134 mm[Hg] [facility] Diastolic blood 2020-02-03 00:13:53 89 mm[Hg] [facility] Heart rate 2020-02-03 00:13:53 101 /min [facility] Respiratory rate 2020-02-03 00:13:53 20 /min [facility] Oxygen saturation in 2020-02-03 00:13:53 97 /min [facility] Arterial blood by [facility] Pulse oximetry Branch Body temperature 2020-02-02 18:46:00 37.83 Carmen [facility] Body weight 2020-02-02 18:46:00 84.823 kg [facility] BMI 2020-02-02 18:46:00 34.20 kg/m2 [facility] Body height 2020-02-02 18:45:00 157.5 cm [facility] Branch BP Systolic 2022-04-14 09:30:00 100 mm[Hg] BP Diastolic 2022-04-14 09:30:00 70 mm[Hg] Weight Measured 2022-04-14 09:30:00 193.40 pounds Height Measured 2022-04-14 09:30:00 62.00 inches Body Temperature 2022-04-14 09:30:00 97.90 degrees Heart Rate 2022-04-14 09:30:00 105.00 /min Respiratory Rate 2022-04-14 09:30:00 16.00 /min BP Systolic 2022-04-12 11:34:00 108 mm[Hg] BP Diastolic 2022-04-12 11:34:00 75 mm[Hg] Weight Measured 2022-04-12 11:34:00 190.40 pounds Height Measured 2022-04-12 11:34:00 62.00 inches Body Temperature 2022-04-12 11:34:00 98.10 degrees Heart Rate 2022-04-12 11:34:00 101.00 /min Respiratory Rate 2022-04-12 11:34:00 16.00 /min BP Systolic 2021-12-06 15:37:00 134 mm[Hg] BP [...] Procedure Date / Time Performed Performing Clinician [facility] e CONSENT/REFUSAL FOR 2022-08-31 16:36:06 [facility]igned, [facility] [place] [facility] Name [facility] Branch TREATMENT CT ABDOMEN PELVIS W 2022-07-15 19:52:36 Debbie Boyce [facility] CONTRAST Medical Branch COMP. METABOLIC PANEL 2022-07-15 19:34:00 Debbie Boyce [facility] ([id number]) Medical Branch CBC WITH DIFF 2022-07-15 19:34:00 Debbie Boyce [facility] URINALYSIS 2022-07-15 19:34:00 Debbie Boyce [facility] POCT TEST 2022-07-15 19:34:00 Debbie Boyce [facility] CONSENT/REFUSAL FOR 2022-07-15 17:04:45 [facility] Name Medical Branch TREATMENT CT ABDOMEN PELVIS WO 2022-05-01 18:06:33 Marcio Augustine [facility] CONTRAST Medical Branch COMP. METABOLIC PANEL 2022-05-01 17:58:00 Marcio Augustine [facility] ([id number]) Medical Branch CBC WITH DIFF 2022-05-01 17:58:00 Singer [facility] Medical Branch URINALYSIS 2022-05-01 17:41:00 Singer [facility] Medical [place] NOTICE OF PRIVACY 2022-05-01 17:31:57 Doctor Unassigned, No [facility] PRACTICES [facility] Medical Branch CONSENT/REFUSAL FOR 2022-05-01 17:28:36 Doctor Unassigned, [facility] AND Name Medical Branch TREATMENT LIPASE 2021-01-04 17:41:00 Gagandeep Rutherford [facility] Medical Branch COMP. METABOLIC PANEL 2021-01-04 17:41:00 Gagandeep Rutherford [facility] ([id number]) Medical Branch CBC WITH DIFF 2021-01-04 17:41:00 Gagandeep R[facility]ford [facility] [place] [facility] URINALYSIS 2021-01-04 17:41:00 Gagandeep Rutherford [facility] POCT TEST 2021-01-04 17:41:00 Gagandeep Rutherford [facility] NOTICE OF PRIVACY 2021-01-04 17:17:35 Doctor Unassigned, No Univ ersity of [facility] Branch CONSENT/REFUSAL FOR 2021-01-04 17:17:20 Doctor Unassigned, No [facility] [place] DIAGNOSIS AND Name Medical Branch TREATMENT XR CHEST 1 VW COVID 2020-02-02 22:20:20 Rafael Perez [facility] CT ABDOMEN PELVIS WO 2020-02-02 22:14:49 Rafael Perez Uni versity of [facility] COMP. METABOLIC PANEL 2020-02-02 21:58:00 Rafael Perez [facility] [place] ([id number]) [facility] CBC WITH DIFF 2020-02-02 21:58:00 Rafael Perez [facility] POCT TEST 2020-02-02 21:58:00 Rafael Perez [facility] URINALYSIS 2020-02-02 21:51:00 Rafael Perez [facility] COVID-19 (ID NOW RAPID 2020-02-02 21:48:00 Rafael [facility] Branch NOTICE OF PRIVACY 2020-02-02 18:28:09 Doctor Unassigned, No Univ ersity of [facility] CONSENT/REFUSAL FOR 2020-02-02 18:21:41 Doctor Unassigned, No [facility] [place] DIAGNOSIS AND Name Medical Branch TREATMENT Plan of Care Planned Activity Planned Date Details Comments Source Goal Plan of Care Note [code = 27550-1] Goal Plan of Care Note [code = 66942-5] Goal Plan of Care Note [code = 18746-7] Goal Plan of Care Note [code = 17804-1] Goal Plan of Care Note [code = 39977-5] Goal Plan of Care Note [code = 08538-3] Goal Plan of Care Note [code = 01483-2] Goal Plan of Care Note [code = 72830-7] Goal Plan of Care Note [code = 95587-6] Goal Plan of Care Note [code = 65341-6] Goal Plan of Care Note [code = 91094-3] Goal Plan of Care Note [code = 85090-1] Goal Plan of Care Note [code = 90022-6] Goal Plan of Care Note [code = 71373-7] Goal Plan of Care Note [code = 97082-4] Goal Plan of Care Note [code = 83833-2] Goal Plan of Care Note [code = 55304-7] Goal Plan of Care Note [code = 65222-5] Goal Plan of Care Note [code = 69665-4] Goal Plan of Care Note [code = 89491-7] Goal Plan of Care Note [code = 51256-0] Goal Plan of Care Note [code = 31966-9] Goal Plan of Care Note [code = 72686-1] Goal Plan of Care Note [code = 85100-1] Goal Plan of Care Note [code = 61324-2] Goal Plan of Care Note [code = 75236-0] Goal Plan of Care Note [code = 99511-8] Goal Plan of Care Note [code = 85522-2] Goal Plan of Care Note [code = 87443-0] Goal Plan of Care Note [code = 16723-0] Goal Plan of Care Note [code = 06165-1] Goal Plan of Care Note [code = 62219-1] Goal Plan of Care Note [code = 31059-3] Goal Plan of Care Note [code = 10932-0] Goal Plan of Care Note [code = 14744-4] Goal Plan of Care Note [code = 46359-0] Goal Plan of Care Note [code = 07379-7] Goal Plan of Care Note [code = 80070-4] Goal Plan of Care Note [code = 18331-5] Goal Plan of Care Note [code = 17329-3] Goal Plan of Care Note [code = 20007-5] Goal Plan of Care Note [code = 13061-0] Goal Plan of Care Note [code = 07350-2] Goal Plan of Care Note [code = 10248-5] Goal Plan of Care Note [code = 45028-0] Goal Plan of Care Note [code = 67849-9] Goal Plan of Care Note [code = 05470-3] Goal Plan of Care Note [code = 57725-9] Goal Plan of Care Note [code = 42428-9] Goal Plan of Care Note [code = 29784-1] Goal Plan of Care Note [code = 09007-1] Goal Plan of Care Note [code = 25745-4] Goal Plan of Care Note [code = 99725-6] Goal Plan of Care Note [code = 42033-7] Goal Plan of Care Note [code = 75296-5] Goal Plan of Care Note [code = 95801-7] Goal Plan of Care Note [code = 96442-8] Goal Plan of Care Note [code = 91450-0] Goal Plan of Care Note [code = 48379-9] Goal Plan of Care Note [code = 33130-1] Goal Plan of Care Note [code = 17353-0] Goal Plan of Care Note [code = 31902-5] Goal Plan of Care Note [code = 52745-8] Goal Plan of Care Note [code = 93045-4] Goal Plan of Care Note [code = 12199-0] Goal Plan of Care Note [code = 63506-4] Goal Plan of Care Note [code = 84028-5] Goal Plan of Care Note [code = 56563-0] Goal Plan of Care Note [code = 13028-9] Goal Plan of Care Note [code = 61340-1] Goal Plan of Care Note [code = 87644-6] Goal Plan of Care Note [code = 29877-3] Goal Plan of Care Note [code = 74790-3] Goal Plan of Care Note [code = 78223-4] Goal Plan of Care Note [code = 40132-8] Goal Plan of Care Note [code = 57399-4] Goal Plan of Care Note [code = 20539-8] Goal Plan of Care Note [code = 20165-1] Goal Plan of Care Note [code = 31692-9] Goal Plan of Care Note [code = 16856-9] Goal Plan of Care Note [code = 70290-8] Goal Plan of Care Note [code = 20753-2] Goal Plan of Care Note [code = 60529-8] Goal Plan of Care Note [code = 86454-6] Goal Plan of Care Note [code = 25763-8] Goal Plan of Care Note [code = 22634-6] Goal Plan of Care Note [code = 69583-7] Goal Plan of Care Note [code = 12804-0] Goal Plan of Care Note [code = 01617-6] Goal Plan of Care Note [code = 76284-5] Goal Plan of Care Note [code = 59709-4] Goal Plan of Care Note [code = 86992-8] Goal Plan of Care Note [code = 80918-8] Goal Plan of Care Note [code = 94561-8] Goal Plan of Care Note [code = 01215-7] Goal Plan of Care Note [code = 53462-2] Goal Plan of Care Note [code = 74123-8] Goal Plan of Care Note [code = 53271-5] Goal Plan of Care Note [code = 51531-3] Goal Plan of Care Note [code = 46051-4] Goal Plan of Care Note [code = 82509-1] Goal Plan of Care Note [code = 18500-6] Goal Plan of Care Note [code = 58642-6] Goal Plan of Care Note [code = 77389-0] Goal Plan of Care Note [code = 81807-5] Goal Plan of Care Note [code = 14668-5] Goal Plan of Care Note [code = 95039-5] Goal Plan of Care Note [code = 04479-8] Goal Plan of Care Note [code = 43853-9] Goal Plan of Care Note [code = 91620-2] Goal Plan of Care Note [code = 75718-2] Goal Plan of Care Note [code = 63834-2] Goal Plan of Care Note [code = 12610-8] Goal Plan of Care Note [code = 45931-9] Goal Plan of Care Note [code = 32302-5] Goal Plan of Care Note [code = 98834-5] Goal Plan of Care Note [code = 46643-5] Goal Plan of Care Note [code = 53110-4] Goal Plan of Care Note [code = 64456-0] Goal Plan of Care Note [code = 16840-6] Goal Plan of Care Note [code = 49549-2] Goal Plan of Care Note [code = 56426-3] Encounters Start End Encounter Admission Attending Care Care Encounter Source Date/Time Date/Time Type Type Clinicians Facility Department ID 2022-12-08 2022-12-08 Outpatient [facility] [id number] Dani 09:36:02 09:36:02 0525 [facility] [place] 2022-12-05 2022-12-05 Outpatient [facility] [id number] Dani 09:31:37 09:31:37 0522 [place] 2022-12-01 2022-12-01 Outpatient [facility] [id number] 023 Dani 09:16:39 09:16:39 0518 F [place] 2022-09-22 2022-09-22 Outpatient [facility] [id number] Dani 17:04:02 17:04:02 0309 F [place] 2022-08-31 2022-08-31 Emergency X MARGARETTE [facility] ERT [id number] Univers 10:51:00 11:41:00 SUPRIYA varner [facility] 2022-08-31 2022-08-31 Gonzales Pfeiffer [facility] 1.2.840.114 [id number] Univers 10:51:00 11:41:00 [facility] [id number] [address] 2022-07-15 2022-07-15 Emergency X ELADIA [facility] ERT [id number] Univers 11:31:00 16:31:00 DEBBIE gardenia [facility] 2022-07-15 2022-07-15 Gonzales Boyce [facility] 1.2.840.114 [id number] Univers 11:31:00 16:31:00 Debbie OLMOS 350.1.13.10 gardenia [facility] 4.2.7.2.686 [facility] [id number] [address] 2022-05-01 2022-05-01 Emergency Luis AUGUSTINE [facility] ERT [id number] Univers 12:42:00 14:35:00 MARCIO varner [facility] 2022-05-01 2022-05-01 Gonzales Augustine [facility] [id number] Univers 12:42:00 14:35:00 Marcio OLMOS 350.1.13.10 i ty of [place] 4.2.7.2.686 [facility] [id number] [place] [address] Branch 2022-04-14 2022-04-14 Outpatient [id number] 5sl125-6 00:00:00 00:00:00 Visit 242c-4ad0 42c-4ad0-8 -8411-21b 411-21b74e 01h4p2g0b 7c1e5b 2022-04-12 2022-04-12 Outpatient [id number] 01l832-6 00:00:00 00:00:00 Visit 68x6-456c 3v5-965h-h -bdf5-cd3 df5-cd3df2 pc956z526 09n975 2022-02-18 2022-02-18 Outpatient n1a68rxa- [id number] e99tqh-9 00:00:00 00:00:00 Visit 1a88-3pc2 k01-4mc3-o -j487-7q1 798-6p3363 787beefcc [facility] 2021-01-04 2021-01-04 Emergency Gagandeep Rutherford [facility] 1.2.840.114 [id number] Univers 12:26:00 15:02:00 Rosangela Olmos 350.1.13.10 i ty of [place] 4.2.7.2.6 [facility] [id number] [place] [address] Branch 2021-01-04 2021-01-04 Emergency X Gagandeep RUTHERFORD [facility] ERT [id number] Univers 12:26:00 12:26:00 ity of [facility] 2021-01-04 2021-01-04 Orders Doctor REJI 1.2.840.114 [id number] Univers 00:00:00 00:00:00 Only Unassigned, KRISTEN 350.1.13.10 ity of [place] [facility] 4.2.7.2.686 Jose Luis [id number] [place] [address] Branch 2020-02-02 2020-02-02 Emergency Ana [facility] 1.2.840.114 [id number] 14:49:37 19:17:00 Rafael Olmos 350.1.13.10 [place] 4.2.7.2.686 [place] [id number] [facility] 2020-02-02 2020-02-02 Emergency Ibkev, [facility] 1.2.840.114 [id number] Univers 14:49:37 19:17:00 Rafael Olmos 350.1.13.10 ity [facility] 4.2.7.2.686 [facility] [id number] [place] [address] Branch 2020-02-02 2020-02-02 Emergency X [facility] ERT [id number] Univers 13:20:00 13:20:00 [facility] Results Test Description Test Time Test Comments Results Result Comments Source VAGINAL PATHOGENS DNA PANEL 2022-09-24 13:08:06 Test Item Value Reference Range Interpretation Comme nts CATA SPECIES (test code POSITIVE NEGATIVE A = ) G. VAGINALIS (test code = NEGATIVE NEGATIVE ) T. VAGINALIS (test code = NEGATIVE NEGATIVE N ote: The BD Affirm VPIII Microbial ) Identification Testis a DNA probe test intended for e in the detectionand identification of Cata species, Gardnerellavagi nalis and Trichomonas vaginalis nucle ic acid. [facility] has important patho logy staff changes effective 09/14. New pathology staff will provide uninterrupted, excellent patient care and clinical co nsultation. See URL: [email or web address] [email or web address]. UNLESS OTHERWIS E INDICATED, ALL TESTING PERFORM ED AT CLINICAL PATHOLOGY [facility]. [address] [place] [address] 3045 SALES ORDER SPECIALIST: PAMELA ABRAMS M.D. CLIA NUMBER [id number] [facility] [place] [id number] COMP. METABOLIC PANEL ([id number])2022-07-15 20:37:41 Test Item Value Reference Range Interpretation Comments NA (test code = 138 mmol/L 135-145 3151931676) K (test code = 5.2 mmol/L 3.5-5.0 H 9889008304) CL (test code = 111 mmol/L 98-108 H 8531365922) CO2 TOTAL (test code = 18 mmol/L 23-31 L 9980324635) AGAP (test code = 2-16 3337773632) BUN (test code = 11 mg/dL 7-23 0968642839) GLUCOSE (test code = 83 mg/dL 70-110 7991532187) CREATININE (test code = 0.97 mg/dL 0.50-1.04 5295075148) TOTAL BILI (test code = 0.6 mg/dL 0.1-1.3 3655255945) CALCIUM (test code = 8.5 mg/dL 8.6-10.6 L 2869190038) T PROTEIN (test code = 7.5 g/dL 6.3-8.2 8419509637) ALBUMIN (test code = 4.1 g/dL 3.5-5.0 7503235576) ALK PHOS (test code = 106 U/L 34-122 0844940107) ALTv (test code = 18 U/L 5-35 2-6) AST(SGOT) (test code = 35 U/L 13-40 0705628406) eGFR (test code = mL/min/1.73m2 5052336501) TOMA (test code = TOMA) Association of [...] tests). Lab Interpretation Abnormal (test code = 74969-4) [facility] WITH [id number] 20:07:37 Test Item Value Reference Range Interpretation Comments WBC (test code = See_Comment [Automated message] 6690-2) The system [employer] generated this result transmitted ref erence range: 4.30 - 1 1.10 10*3/?L. The re ference range was not u sed to interpret this result as normal/abnor mal. RBC (test code = See_Comment [Automated message] 659-8) The system [employer] generated this result transmitted ref erence range: 3.93 - 5 .25 10*6/?L. The re ference range was not u sed to interpret this result as normal/abnor mal. HGB (test code = 13.1 g/dL 11.6-15.0 718-7) HCT (test code = 39.3 % 35.7-45.2 4544-3) MCV (test code = 86.6 fL 80.6-95.5 787-2) MCH (test code = 28.9 pg 25.9-32.8 785-6) MCHC (test code = 33.3 g/dL 31.6-35.1 786-4) RDW-SD (test code 47.9 fL 39.0-49.9 = 04843-3) RDW-CV (test code 15.1 % 12.0-15.5 = 788-0) PLT (test code = See_Comment [Automated message] 777-3) The system [employer] generated this result transmitted ref erence range: 166 - 35 8 10*3/?L. The re ference range was not u sed to interpret this result as normal/abnor mal. MPV (test code = 9.8 fL 9.5-12.9 02657-9) NRBC/100 WBC (test See_Comment [Automat ed message] code = 6278593604) [employer] which generated this result transmitted ref erence range: 0.0 - 10 .0 /100 WBCs. The refer ence range was not u sed to interpret this result as normal/abnor mal. NRBC x10^3 (test See_Comment [Automated message] code = 8834305020) The syste m which generated this result transmitted ref erence range: 10*3/?L. The reference range was not used to interpr et this result as normal/abnormal . GRAN MAT (NEUT) % 63.9 % (test code = 770-8) IMM GRAN % (test 0.50 % code = 5998381405) LYMPH % (test code 24.7 % = 736-9) MONO % (test code 9.6 % = 5905-5) EOS % (test code = 0.9 % 713-8) BASO % (test code 0.4 % = 706-2) GRAN MAT 5.04 10*3/uL 1.88-7.09 x10^3(ANC) (test code = 3563200065) IMM GRAN x10^3 0.04 10*3/uL 0.00-0.06 (test code = 3555996814) LYMPH x10^3 (test 1.95 10*3/uL 1.32-3.29 code = 731-0) MONO x10^3 (test 0.76 10*3/uL 0.33-0.92 code = 742-7) EOS x10^3 (test 0.07 10*3/uL 0.03-0.39 code = 711-2) BASO x10^3 (test 0.03 10*3/uL 0.01-0.07 code = 704-7) [id number]00 Test Item Value Reference Range Interpretation Comments POCT PREG (test code = 1605) Negative On board controls acceptable with Present C Line (test code = 3574) POCT PREG LOT # (test code = 3575) [id number] POCT PREG TEST DATE (test 10-15-2023 code = 3576) Lab Interpretation (test code = Normal 00825-8) [facility]. METABOLIC PANEL (01730)2022-05-01 18:34:40 Test Item Value Reference Range Interpretation Comments NA (test code = 140 mmol/L 135-145 7585326046) K (test code = 4.4 mmol/L 3.5-5 0155596188) CL (test code = 110 mmol/L 98-108 H 9981789021) CO2 TOTAL (test code = 20 mmol/L 23-31 L 5864921426) AGAP (test code = 2-16 2464257437) BUN (test code = 10 mg/dL 7-23 7878588953) GLUCOSE (test code = 104 mg/dL 70-110 8667337630) CREATININE (test code = 0.84 mg/dL 0.5-1.04 4046301025) TOTAL BILI (test code = 0.3 mg/dL 0.1-1.8 3057493320) CALCIUM (test code = 8.2 mg/dL 8.6-10.6 L 0821177689) T PROTEIN (test code = 7.0 g/dL 6.3-8.2 0601713085) ALBUMIN (test code = 4.1 g/dL 3.5-5 3494664811) ALK PHOS (test code = 95 U/L 34-122 3220014512) ALTv (test code = 34 U/L 5-35 1742-6) AST(SGOT) (test code = 45 U/L 13-40 H 2917724638) eGFR (test code = mL/min/1.73m2 8425459167) TOMA (test code = TOMA) Association of [...] tests). Lab Interpretation Abnormal (test code = 27330-8) [facility] WITH [id number] 18:13:21 Test Item Value Reference Range Interpretation Comments WBC (test code = See_Comment [Automated 3770-2) message] The sy stem which generated this result transmitted reference range : 4.30 - 11.10 10*3/?L. The reference range was not used to interpret this result as normal/abnormal . RBC (test code = See_Comment [Automated 279-8) message] The sy stem which generated this result transmitted reference range : 3.93 - 5.25 10*6/?L. The reference range was not used to interpret this result as normal/abnormal . HGB (test code = 12.3 g/dL 11.6-15 718-7) HCT (test code = 38.3 % 35.7-45.2 4544-3) MCV (test code = 85.7 fL 80.6-95.5 787-2) MCH (test code = 27.5 pg 25.9-32.8 785-6) MCHC (test code = 32.1 g/dL 31.6-35.1 786-4) RDW-SD (test code = 48.9 fL 39-49.9 40523-3) RDW-CV (test code = 15.7 % 12-15.5 H 788-0) PLT (test code = See_Comment [Automated 777-3) message] The sy stem which generated this result transmitted reference range : 166 - 358 10*3/ ?L. The reference r martha was not used to interpret this result as normal/abnormal . MPV (test code = 9.5 fL 9.5-12.9 91810-8) NRBC/100 WBC (test See_Comment [Automat ed code = 9431296661) message] The system which generated this result transmitted reference range : 0.0 - 10.0 /100 WBCs. The refer ence range was not u sed to interpret th is result as normal/abnormal . NRBC x10^3 (test code See_Comment [Auto mated = 8109039380) message] The s ystem which generated this result transmitted reference range : 10*3/?L. The reference range was not used to interpret this result as normal/abnormal . GRAN MAT (NEUT) % 63.1 % (test code = 770-8) IMM GRAN % (test code 0.40 % = 2796271623) LYMPH % (test code = 24.5 % 736-9) MONO % (test code = 9.2 % 5905-5) EOS % (test code = 2.3 % 713-8) BASO % (test code = 0.5 % 706-2) GRAN MAT x10^3(ANC) 5.11 10*3/uL 1.88-7.09 (test code = 1494143434) IMM GRAN x10^3 (test 0.03 10*3/uL 0-0.06 code = 2331424701) LYMPH x10^3 (test code 1.99 10*3/uL 1.32-3.29 = 731-0) MONO x10^3 (test code 0.75 10*3/uL 0.33-0.92 = 742-7) EOS x10^3 (test code = 0.19 10*3/uL 0.03-0.39 711-2) BASO x10^3 (test code 0.04 10*3/uL 0.01-0.07 = 704-7) Lab Interpretation Abnormal (test code = 92208-0) [facility] [id number] 15:54:23 Test Item Value Reference Range Interpretation Comments CATA SPECIES (test POSITIVE NEGATIVE A code = ) G. VAGINALIS (test POSITIVE NEGATIVE A code = ) T. VAGINALIS (test NEGATIVE NEGATIVE UNLESS O THERWISE code = ) INDICATED, ALL TESTING PERFORMED [facility] [address] [place] [address] 4 LABORATORY DIRE CTOR: THEO CASTILLO M.D. CLIA NUMBER [id number] [facility] [place] [id number] SCR MAMM BILATERAL NATHAN CAD [id number] 08:04:31 Name: , Yissel Wilburn : 1975 Sex: F - SCR MAMM BILATERAL NATHAN CAD DIGITALBILATERAL DIGITAL SCREENING MAMMOGRAM 3D/2D WITH CAD: 04/08/2022LINICAL: Asymptomatic. Digital breast tomosynthesis was performed in addition to routine CC and MLO views. Current mammographic images wereevaluated by [employer] CAD (computer-aided detection) software. No prior exams were available for comparison. There are scattered fibroglandular tissues in both breasts. There are benign calcifications in both breasts. There is a subcentimeter low density mass with a circumscribed margin inthe left breast at 7 o'clock middle depth. No other significant masses, calcifications, or other findings are seen in either breast. IMPRESSION: INCOMPLETE: ADDITIONAL IMAGING EVALUATION NEEDEDThe low density mass in the left breast is indeterminate. Ultrasound with possible additional views are recommended. Sarah Rendon M.D. scg/:04/15/2022 08:04:31 Hydraulic Jack Operator: Shireen Graham MM, [facility] MammographyMammogram BI-RADS: 0 Incomplete: Additional Imaging Evaluation NeededVAGINAL PATHOGENS DNA [id number] 00:00:00 Test Item Value Reference Range Interpretation Comments CATA SPECIES (test code = 39376) POSITIVE G. VAGINALIS (test code = ) POSITIVE T. VAGINALIS (test code = ) NEGATIVE VAGINAL PATHOGENS DNA [id number] 00:00:00 Test Item Value Reference Range Interpretation Comments CATA SPECIES (test code = 46814) POSITIVE G. VAGINALIS (test code = 67282) POSITIVE T. VAGINALIS (test code = 24501) NEGATIVE CT/NG, NAAT, [id number] 21:50:47 Test Item Value Reference Range Interpretation Comments GONORRHEA, NAAT NEGATIVE NEGATIVE IMPORTA NT NOTICE: SEE (test code = [place] [address]) [email or web address] Note: Assay methodology is nucleic acid amplification b y motion picture actor m ediated amplification ( TMA) utilizing the A ptima Combo 2 Assay. CHLAMYDIA, NAAT NEGATIVE NEGATIVE IMPORTA NT NOTICE: SEE (test code = [place] [address]) [email or web address] Note: Assay methodology is nucleic acid amplification b y motion picture actor m ediated amplification ( TMA) utilizing the A ptima Combo 2 Assay. HIV 1/2 4TH GEN, RFLX [id number] 04:59:08 Test Item Value Reference Range Interpretation Comments HIV 1/2 4TH GEN, RFLX CONF (test NON-REACTIVE NON-REACTIVE code = 3514) HEPATITIS PANEL, [id number] 04:59:08 Test Item Value Reference Range Interpretation Comments HEPATITIS A IgM (test NON-REACTIVE NON-REACTIVE code = 53311) HEPATITIS B CORE IgM NON-REACTIVE NON-REACTIVE (test code = 4644) HEPATITIS B SURF AG NON-REACTIVE NON-REACTIVE (test code = 2739) HEPATITIS C ANTIBODY NON-REACTIVE NON-REACTIVE (test code = 4675) INTERPRETATION (NOTE) Hepatitis A HEPATITIS A: (test code sero logy shows no = 2552) evidence of acu te hepatitis A. INTERPRETATION (NOTE) Hepatitis B HEPATITIS B: (test code sero logy shows no = 76614) evidence of acu te hepatitis B and no indication of exposure to hepatitis B vir us in the previous ce eight months. INTERPRETATION (NOTE) Hepatitis C HEPATITIS C: (test code sero logy shows no = 16091) evidence of exposure to hepatitisC viru s at this time. I t can take up to 12 months after exposure tothe hepatitis C vir us for antibodies to become detectab le in the blood in certain patient s. [id number] 04:17:56 Test Item Value Reference Range Interpretation Comments RPR RESULT (test NON-REACTIVE NON-REACTIVE code = 3501) RPR TITER (test NOT INDIC. NOT INDIC. UNLESS OTHE RWISE code = 3500) TITER INDICATED, ALL TESTING PERFORMED [facility] N[facility] PATHOLOG[facility] CENTERCar[employer]60 [employer], [employer] [address] [place] [address] 4 LABORATORY DIRE CTOR: THEO CASTILLO M.D. CLIA NUMBER [id number] [place] [id number] GC AND CHLAMYDIA, AMPLIFIED, [id number] 00:00:00 Test Item Value Reference Range Interpretation Comments GONORRHEA, NAAT (test code = 32030) NEGATIVE CHLAMYDIA, NAAT (test code = 54619) NEGATIVE HIV AB/AG COMBO RFLX [id number] 00:00:00 Test Item Value Reference Range Interpretation Comments HIV 1/2 4TH GEN, RFLX CONF (test NON-REACTIVE code = 3514) ACUTE HEPATITIS [id number] 00:00:00 Test Item Value Reference Range Interpretation Comments HEPATITIS A IgM (test code = NON-REACTIVE 80987) HEPATITIS B CORE IgM (test code NON-REACTIVE = 4644) HEPATITIS B SURF AG (test code = NON-REACTIVE 1579) HEPATITIS C ANTIBODY (test code NON-REACTIVE = 4675) INTERPRETATION HEPATITIS A: (NOTE) (test code = 2552) INTERPRETATION HEPATITIS B: (NOTE) (test code = 71140) INTERPRETATION HEPATITIS C: (NOTE) (test code = 07280) [id number] 00:00:00 Test Item Value Reference Range Interpretation Comments RPR RESULT (test code = NON-REACTIVE 3501) RPR TITER (test code = 3500) NOT INDIC. TITER [id number] 00:00:00 Test Item Value Reference Range Interpretation Comments RPR RESULT (test code = NON-REACTIVE 3501) RPR TITER (test code = 3500) NOT INDIC. TITER GC AND CHLAMYDIA, AMPLIFIED, [id number] 00:00:00 Test Item Value Reference Range Interpretation Comments GONORRHEA, NAAT (test code = 12123) NEGATIVE CHLAMYDIA, NAAT (test code = 67171) NEGATIVE GC AND CHLAMYDIA, AMPLIFIED, [id number] 00:00:00 Test Item Value Reference Range Interpretation Comments GONORRHEA, NAAT (test code = 00139) NEGATIVE CHLAMYDIA, NAAT (test code = 92613) NEGATIVE HIV AB/AG COMBO RFLX [id number] 00:00:00 Test Item Value Reference Range Interpretation Comments HIV 1/2 4TH GEN, RFLX CONF (test NON-REACTIVE code = 3514) HIV AB/AG COMBO RFLX [id number] 00:00:00 Test Item Value Reference Range Interpretation Comments HIV 1/2 4TH GEN, RFLX CONF (test NON-REACTIVE code = 3514) ACUTE HEPATITIS [id number] 00:00:00 Test Item Value Reference Range Interpretation Comments HEPATITIS A IgM (test code = NON-REACTIVE 69471) HEPATITIS B CORE IgM (test code NON-REACTIVE = 4644) HEPATITIS B SURF AG (test code = NON-REACTIVE 2739) HEPATITIS C ANTIBODY (test code NON-REACTIVE = 4675) INTERPRETATION HEPATITIS A: (NOTE) (test code = 2552) INTERPRETATION HEPATITIS B: (NOTE) (test code = 70888) INTERPRETATION HEPATITIS C: (NOTE) (test code = 67538) ACUTE HEPATITIS [id number] 00:00:00 Test Item Value Reference Range Interpretation Comments HEPATITIS A IgM (test code = NON-REACTIVE 98047) HEPATITIS B CORE IgM (test code NON-REACTIVE = 4644) HEPATITIS B SURF AG (test code = NON-REACTIVE 2739) HEPATITIS C ANTIBODY (test code NON-REACTIVE = 4675) INTERPRETATION HEPATITIS A: (NOTE) (test code = 2552) INTERPRETATION HEPATITIS B: (NOTE) (test code = 44929) INTERPRETATION HEPATITIS C: (NOTE) (test code = 50643) [id number] 00:00:00 Test Item Value Reference Range Interpretation Comments RPR RESULT (test code = NON-REACTIVE 3501) RPR TITER (test code = 3500) NOT INDIC. TITER [id number] 00:00:00 Test Item Value Reference Range Interpretation Comments RPR RESULT (test code = NON-REACTIVE 3501) RPR TITER (test code = 3500) NOT INDIC. TITER [id number] 00:00:00 Test Item Value Reference Range Interpretation Comments RPR RESULT (test code = NON-REACTIVE 3501) RPR TITER (test code = 3500) NOT INDIC. TITER GC AND CHLAMYDIA, AMPLIFIED, [id number] 00:00:00 Test Item Value Reference Range Interpretation Comments GONORRHEA, NAAT (test code = 05208) NEGATIVE CHLAMYDIA, NAAT (test code = 91821) NEGATIVE GC AND CHLAMYDIA, AMPLIFIED, [id number] 00:00:00 Test Item Value Reference Range Interpretation Comments GONORRHEA, NAAT (test code = 88835) NEGATIVE CHLAMYDIA, NAAT (test code = 70167) NEGATIVE HIV AB/AG COMBO RFLX [id number] 00:00:00 Test Item Value Reference Range Interpretation Comments HIV 1/2 4TH GEN, RFLX CONF (test NON-REACTIVE code = 3514) HIV AB/AG COMBO RFLX [id number] 00:00:00 Test Item Value Reference Range Interpretation Comments HIV 1/2 4TH GEN, RFLX CONF (test NON-REACTIVE code = 3514) ACUTE HEPATITIS [id number] 00:00:00 Test Item Value Reference Range Interpretation Comments HEPATITIS A IgM (test code = NON-REACTIVE 18532) HEPATITIS B CORE IgM (test code NON-REACTIVE = 4644) HEPATITIS B SURF AG (test code = NON-REACTIVE 2739) HEPATITIS C ANTIBODY (test code NON-REACTIVE = 4675) INTERPRETATION HEPATITIS A: (NOTE) (test code = 2552) INTERPRETATION HEPATITIS B: (NOTE) (test code = 21115) INTERPRETATION HEPATITIS C: (NOTE) (test code = 16985) ACUTE HEPATITIS [id number] 00:00:00 Test Item Value Reference Range Interpretation Comments HEPATITIS A IgM (test code = NON-REACTIVE 46167) HEPATITIS B CORE IgM (test code NON-REACTIVE = 4644) HEPATITIS B SURF AG (test code = NON-REACTIVE 2739) HEPATITIS C ANTIBODY (test code NON-REACTIVE = 4675) INTERPRETATION HEPATITIS A: (NOTE) (test code = 2552) INTERPRETATION HEPATITIS B: (NOTE) (test code = 37047) INTERPRETATION HEPATITIS C: (NOTE) (test code = 90605) [id number] 00:00:00 Test Item Value Reference Range Interpretation Comments RPR RESULT (test code = NON-REACTIVE 3501) RPR TITER (test code = 3500) NOT INDIC. TITER [id number] 00:00:00 Test Item Value Reference Range Interpretation Comments RPR RESULT (test code = NON-REACTIVE 3501) RPR TITER (test code = 3500) NOT INDIC. TITER [id number] 00:00:00 Test Item Value Reference Range Interpretation Comments RPR RESULT (test code = NON-REACTIVE 3501) RPR TITER (test code = 3500) NOT INDIC. TITER Complete Metabolic [id number] 18:07:03 Test Item Value Reference Range Interpretation Comments NA (test code = 139 mmol/L 135-145 6237827630) K (test code = 3.6 mmol/L 3.5-5.0 2505503283) CL (test code = 109 mmol/L 98-108 H 5879071766) CO2 TOTAL (test code = 19 mmol/L 23-31 L 4933634308) AGAP (test code = 2-16 1214998199) BUN (test code = 10 mg/dL 7-23 4789339935) GLUCOSE (test code = 112 mg/dL 70-110 H 1322737695) CREATININE (test code = 0.89 mg/dL 0.50-1.04 6110665039) TOTAL BILI (test code = 0.3 mg/dL 0.1-1.8 3713141803) CALCIUM (test code = 8.1 mg/dL 8.6-10.6 L 6102189365) T PROTEIN (test code = 8.1 g/dL 6.3-8.2 8648637293) ALBUMIN (test code = 4.3 g/dL 3.5-5.0 0790430655) ALK PHOS (test code = 121 U/L 34-122 4626335305) ALTv (test code = 22 U/L 5-35 1742-6) AST(SGOT) (test code = 33 U/L 13-40 7144916332) eGFR (test code = mL/min/1.73m2 2781275515) TOMA (test code = TOMA) Association of [...] tests). Lab Interpretation Abnormal (test code = 88038-7) [facility] [id number] 18:06:22 Test Item Value Reference Range Interpretation Comments LIPASE (test code = 8539962962) 65 U/L 0-220 Lab Interpretation (test code = Normal 12184-3) [facility] [id number] 18:03:42 Test Item Value Reference Range Interpretation Comments APPEARANCE (test code = Hazy Clear A 1979837297) COLOR (test code = Reta Yellow A 7100911524) PH (test code = 4.8-8.0 1077148635) SP GRAVITY (test code = 1.003-1.030 0924155492) GLU U QUAL (test code = Normal Normal 7930057779) BLOOD (test code = 1+ Negative A 4487406267) KETONES (test code = Negative Negative 6102484802) PROTEIN (test code = 30 mg/dL Negative A 2887-8) UROBILIN (test code = 4.0 mg/dL Normal A 3222723500) BILIRUBIN (test code = Negative Negative 2773207364) NITRITE (test code = Positive Negative A 0167926759) LEUK CHARLES (test code = Negative Negative 6800154266) RBC/HPF (test code = See_Comment H [Autom ated message] 4647305873) The system [employer] generated this result transmit tomasa reference range : 0 - 3 HPF. The refe rence range was not u sed to interpret th is result as normal/abnormal . WBC/HPF (test code = See_Comment H [Autom ated message] 3791187709) The system [employer] generated this result transmit tomasa reference range : 0 - 5 HPF. The refe rence range was not u sed to interpret th is result as normal/abnormal . BACTERIA (test code = Many Negative A 2112563242) MUCOUS (test code = Marked Negative LPF A 0336310375) SQ EPITH (test code = HPF 2281001060) Lab Interpretation (test Abnormal code = 80957-3) [facility] with [id number] 17:53:21 Test Item Value Reference Range Interpretation Comments WBC (test code = See_Comment [Automated message] 6690-2) The system [employer] generated this result transmitted ref erence range: 4.30 - 1 1.10 10*3/?L. The re ference range was not u sed to interpret this result as normal/abnor mal. RBC (test code = See_Comment [Automated message] 789-8) The system [employer] generated this result transmitted ref erence range: [...] RDW-SD (test code 48.3 fL 39.0-49.9 = 20751-9) RDW-CV (test code 15.2 % 12.0-15.5 = 788-0) PLT (test code = See_Comment [Automated message] 187-3) The system whic h generated this result transmitted ref erence range: 166 - 35 8 10*3/?L. The re ference range was not u sed to interpret this result as normal/abnor mal. MPV (test code = 9.5 fL 9.5-12.9 64006-8) NRBC/100 WBC (test See_Comment [Automat ed message] code = 6101828945) The syste m which generated this result transmitted ref erence range: 0.0 - 10 .0 /100 WBCs. The refer ence range was not u sed to interpret this result as normal/abnor mal. NRBC x10^3 (test <0.01 See_Comment [Automated message] code = 8336368608) The syste m which generated this result transmitted ref erence range: 10*3/?L. The reference range was not used to interpr et this result as normal/abnormal . GRAN MAT (NEUT) % 67.1 % (test code = 770-8) IMM GRAN % (test 0.50 % code = 4774635259) LYMPH % (test code 21.1 % = 736-9) MONO % (test code 10.6 % = 5905-5) EOS % (test code = 0.5 % 713-8) BASO % (test code 0.2 % = 706-2) GRAN MAT 5.75 10*3/uL 1.88-7.09 x10^3(ANC) (test code = 6934849575) IMM GRAN x10^3 0.04 10*3/uL 0.00-0.06 (test code = 6189860673) LYMPH x10^3 (test 1.81 10*3/uL 1.32-3.29 code = 731-0) MONO x10^3 (test 0.91 10*3/uL 0.33-0.92 code = 742-7) EOS x10^3 (test 0.04 10*3/uL 0.03-0.39 code = 711-2) BASO x10^3 (test <0.03 0.01-0.07 code = 704-7) [facility] [id number] 17:41:00 Test Item Value Reference Range Interpretation Comments POCT PREG (test code = 1605) negative On board controls acceptable with C present Line (test code = 3574) Lab Interpretation (test code = Normal 77368-0) [facility] CenterCBC [facility]AUTO [id number] 00:00:00 Test Item Value Reference Range Interpretation [...] NUCLEATED RBCS (test code = 0.00 K/UL 70696) CBC W/AUTO [id number] 00:00:00 Test Item Value Reference Range Interpretation [...] NUCLEATED RBCS (test code = 0.00 K/UL 74456) HEMOGLOBIN [id number] 00:00:00 Test Item Value Reference Range Interpretation Comments HEMOGLOBIN A1c (test code = 31210) 5.5 % HEMOGLOBIN [id number] 00:00:00 Test Item Value Reference Range Interpretation Comments HEMOGLOBIN A1c (test code = 64142) 5.5 % LIPID [id number] 00:00:00 Test Item Value Reference Range Interpretation Comments CHOLESTEROL (test code = 2210) 160 MG/DL TRIGLYCERIDES (test code = 2232) 237 MG/DL HDL CHOLESTEROL (test code = 2220) 41 MG/DL CALC LDL CHOL (test code = 2237) 86 MG/DL RISK RATIO LDL/HDL (test code = 2.10 RATIO 2238) COMPREHENSIVE METABOLIC [id number] 00:00:00 Test Item Value Reference Range Interpretation Comments GLUCOSE (test code = 2217) 109 MG/DL BUN (test code = 2208) 12 MG/DL CREATININE (test code = 2214) 0.83 MG/DL eGFR AMER. (test code 98 ML/MIN/1.73 = 22905) eGFR NON- AMER. (test 85 ML/MIN/1.73 code = 94627) CALC BUN/CREAT (test code = 14 RATIO [...] 2239) CALC A/G RATIO (test code = 1.3 RATIO 2233) BILIRUBIN, TOTAL (test code = <0.2 MG/DL 2206) ALKALINE PHOSPHATASE (test 99 U/L code = 2203) AST (test code = 2218) 17 U/L ALT (test code = 2219) 15 U/L [id number] 00:00:00 Test Item Value Reference Range Interpretation Comments TSH, THIRD GENERATION (test code 0.889 UIU/ML = 2821) [id number] 00:00:00 Test Item Value Reference Range Interpretation Comments TSH, THIRD GENERATION (test code 0.889 UIU/ML = 2821) VITAMIN D, 25 [id number] 00:00:00 Test Item Value Reference Range Interpretation Comments VITAMIN D, 25 OH (test code = 4958) 15 NG/ML CBC W/AUTO [id number] 00:00:00 Test Item Value Reference Range Interpretation [...] NUCLEATED RBCS (test code = 0.00 K/UL 68749) CBC W/AUTO [id number] 00:00:00 Test Item Value Reference Range Interpretation [...] NUCLEATED RBCS (test code = 0.00 K/UL 96516) CBC W/AUTO [id number] 00:00:00 Test Item Value Reference Range Interpretation [...] NUCLEATED RBCS (test code = 0.00 K/UL 67294) HEMOGLOBIN [id number] 00:00:00 Test Item Value Reference Range Interpretation Comments HEMOGLOBIN A1c (test code = 42670) 5.5 % HEMOGLOBIN [id number] 00:00:00 Test Item Value Reference Range Interpretation Comments HEMOGLOBIN A1c (test code = 85804) 5.5 % HEMOGLOBIN [id number] 00:00:00 Test Item Value Reference Range Interpretation Comments HEMOGLOBIN A1c (test code = 64234) 5.5 % LIPID [id number] 00:00:00 Test Item Value Reference Range Interpretation Comments CHOLESTEROL (test code = 2210) 160 MG/DL TRIGLYCERIDES (test code = 2232) 237 MG/DL HDL CHOLESTEROL (test code = 2220) 41 MG/DL CALC LDL CHOL (test code = 2237) 86 MG/DL RISK RATIO LDL/HDL (test code = 2.10 RATIO 2238) LIPID [id number] 00:00:00 Test Item Value Reference Range Interpretation Comments CHOLESTEROL (test code = 2210) 160 MG/DL TRIGLYCERIDES (test code = 2232) 237 MG/DL HDL CHOLESTEROL (test code = 2220) 41 MG/DL CALC LDL CHOL (test code = 2237) 86 MG/DL RISK RATIO LDL/HDL (test code = 2.10 RATIO 2238) COMPREHENSIVE METABOLIC [id number] 00:00:00 Test Item Value Reference Range Interpretation Comments GLUCOSE (test code = 2217) 109 MG/DL BUN (test code = 2208) 12 MG/DL CREATININE (test code = 2214) 0.83 MG/DL eGFR AMER. (test code 98 ML/MIN/1.73 = 83629) eGFR NON- AMER. (test 85 ML/MIN/1.73 code = 07820) CALC BUN/CREAT (test code = 14 RATIO [...] CALC GLOBULIN (test code = 3.2 G/DL 2240) CALC A/G RATIO (test code = 1.3 RATIO 2234) BILIRUBIN, TOTAL (test code = <0.2 MG/DL 2206) ALKALINE PHOSPHATASE (test 99 U/L code = 2204) AST (test code = 2218) 17 U/L ALT (test code = 2219) 15 U/L COMPREHENSIVE METABOLIC [id number] 00:00:00 Test Item Value Reference Range Interpretation Comments GLUCOSE (test code = 2217) 109 MG/DL BUN (test code = 2208) 12 MG/DL CREATININE (test code = 2214) 0.83 MG/DL eGFR AMER. (test code 98 ML/MIN/1.73 = 62741) eGFR NON- AMER. (test 85 ML/MIN/1.73 code = 88812) CALC BUN/CREAT (test code = 14 RATIO [...] 2239) CALC A/G RATIO (test code = 1.3 RATIO 2233) BILIRUBIN, TOTAL (test code = <0.2 MG/DL 2206) ALKALINE PHOSPHATASE (test 99 U/L code = 220) AST (test code = 2218) 17 U/L ALT (test code = 2219) 15 U/L [id number] 00:00:00 Test Item Value Reference Range Interpretation Comments TSH, THIRD GENERATION (test code 0.889 UIU/ML = 2821) [id number] 00:00:00 Test Item Value Reference Range Interpretation Comments TSH, THIRD GENERATION (test code 0.889 UIU/ML = 2821) [id number] 00:00:00 Test Item Value Reference Range Interpretation Comments TSH, THIRD GENERATION (test code 0.889 UIU/ML = 2821) VITAMIN D, 25 [id number] 00:00:00 Test Item Value Reference Range Interpretation Comments VITAMIN D, 25 OH (test code = 4958) 15 NG/ML VITAMIN D, 25 [id number] 00:00:00 Test Item Value Reference Range Interpretation Comments VITAMIN D, 25 OH (test code = 4958) 15 NG/ML CBC W/AUTO [id number] 00:00:00 Test Item Value Reference Range Interpretation [...] NUCLEATED RBCS (test code = 0.00 K/UL 81762) CBC W/AUTO [id number] 00:00:00 Test Item Value Reference Range Interpretation [...] NUCLEATED RBCS (test code = 0.00 K/UL 15778) CBC W/AUTO [id number] 00:00:00 Test Item Value Reference Range Interpretation [...] NUCLEATED RBCS (test code = 0.00 K/UL 92622) HEMOGLOBIN [id number] 00:00:00 Test Item Value Reference Range Interpretation Comments HEMOGLOBIN A1c (test code = 52129) 5.5 % HEMOGLOBIN [id number] 00:00:00 Test Item Value Reference Range Interpretation Comments HEMOGLOBIN A1c (test code = 17018) 5.5 % HEMOGLOBIN [id number] 00:00:00 Test Item Value Reference Range Interpretation Comments HEMOGLOBIN A1c (test code = 43367) 5.5 % LIPID [id number] 00:00:00 Test Item Value Reference Range Interpretation Comments CHOLESTEROL (test code = 2210) 160 MG/DL TRIGLYCERIDES (test code = 2232) 237 MG/DL HDL CHOLESTEROL (test code = 2220) 41 MG/DL CALC LDL CHOL (test code = 2237) 86 MG/DL RISK RATIO LDL/HDL (test code = 2.10 RATIO 2238) LIPID [id number] 00:00:00 Test Item Value Reference Range Interpretation Comments CHOLESTEROL (test code = 2210) 160 MG/DL TRIGLYCERIDES (test code = 2232) 237 MG/DL HDL CHOLESTEROL (test code = 2220) 41 MG/DL CALC LDL CHOL (test code = 2237) 86 MG/DL RISK RATIO LDL/HDL (test code = 2.10 RATIO 2238) COMPREHENSIVE METABOLIC [id number] 00:00:00 Test Item Value Reference Range Interpretation Comments GLUCOSE (test code = 2217) 109 MG/DL BUN (test code = 2208) 12 MG/DL CREATININE (test code = 2214) 0.83 MG/DL eGFR AMER. (test code 98 ML/MIN/1.73 = 66274) eGFR NON- AMER. (test 85 ML/MIN/1.73 code = 91363) CALC BUN/CREAT (test code = 14 RATIO [...] CALC GLOBULIN (test code = 3.2 G/DL 2240) CALC A/G RATIO (test code = 1.3 RATIO 2234) BILIRUBIN, TOTAL (test code = <0.2 MG/DL 2206) ALKALINE PHOSPHATASE (test 99 U/L code = 2204) AST (test code = 2218) 17 U/L ALT (test code = 2219) 15 U/L COMPREHENSIVE METABOLIC [id number] 00:00:00 Test Item Value Reference Range Interpretation Comments GLUCOSE (test code = 2217) 109 MG/DL BUN (test code = 2208) 12 MG/DL CREATININE (test code = 2214) 0.83 MG/DL eGFR AMER. (test code 98 ML/MIN/1.73 = 91233) eGFR NON- AMER. (test 85 ML/MIN/1.73 code = 28136) CALC BUN/CREAT (test code = 14 RATIO 5) SODIUM (test code = 2231) 140 MEQ/L [...] 2239) CALC A/G RATIO (test code = 1.3 RATIO 2233) BILIRUBIN, TOTAL (test code = <0.2 MG/DL 2206) ALKALINE PHOSPHATASE (test 99 U/L code = 2204) AST (test code = 2218) 17 U/L ALT (test code = 2219) 15 U/L [id number] 00:00:00 Test Item Value Reference Range Interpretation Comments TSH, THIRD GENERATION (test code 0.889 UIU/ML = 2821) [id number] 00:00:00 Test Item Value Reference Range Interpretation Comments TSH, THIRD GENERATION (test code 0.889 UIU/ML = 2821) [id number] 00:00:00 Test Item Value Reference Range Interpretation Comments TSH, THIRD GENERATION (test code 0.889 UIU/ML = 2821) VITAMIN D, 25 [id number] 00:00:00 Test Item Value Reference Range Interpretation Comments VITAMIN D, 25 OH (test code = 4958) 15 NG/ML VITAMIN D, 25 [id number] 00:00:00 Test Item Value Reference Range Interpretation Comments VITAMIN D, 25 OH (test code = 4958) 15 NG/ML PAP TEST, THINPREP, [id number] 00:00:00 Test Item Value Reference Range Interpretation Comments SOURCE: (test code = Cervical/Endocervical 8001) SLIDES: (test code = 1 8011) LMP: (test code = 8021) 06/06/2020 SPECIMEN ADEQUACY: (NOTE) (test code = 84424) INTERPRETATION: (test NILM/NO EPITH. code = 86388) ABNORMALITY;SEE BELOW SHIP CLEANER: (test Vincent code = 8101) VALENTÍN Marquez(ASCP) LOCATION: (test code = (NOTE) 37434) CPT: (test code = 8140) (NOTE) HPV HIGH RISK WITH GENOTYPE, [id number] 00:00:00 Test Item Value Reference Range Interpretation Comments HPV HIGH RISK INTERP (test NEGATIVE code = 65714) HPV 16 (test code = 75605) TEST NOT PERFORMED HPV 18 (test code = 06698) TEST NOT PERFORMED HPV, HR, OTHER GENOTYPES TEST NOT PERFORMED (test code = 63798) PAP TEST, THINPREP, [id number] 00:00:00 Test Item Value Reference Range Interpretation Comments SOURCE: (test code = Cervical/Endocervical 8001) SLIDES: (test code = 1 8011) LMP: (test code = 8021) 06/06/2020 SPECIMEN ADEQUACY: (NOTE) (test code = 05452) INTERPRETATION: (test NILM/NO EPITH. code = 54987) ABNORMALITY;SEE BELOW SHIP CLEANER: (test Vincent code = 8101) VALENTÍN Marquez(ASCP) LOCATION: (test code = (NOTE) 15801) CPT: (test code = 8140) (NOTE) PAP TEST, THINPREP, [id number] 00:00:00 Test Item Value Reference Range Interpretation Comments SOURCE: (test code = Cervical/Endocervical 8001) SLIDES: (test code = 1 8011) LMP: (test code = 8021) 06/06/2020 SPECIMEN ADEQUACY: (NOTE) (test code = 77682) INTERPRETATION: (test NILM/NO EPITH. code = 69947) ABNORMALITY;SEE BELOW SHIP CLEANER: (test Vincent code = 8101) VALENTÍN Marquez(ASCP) LOCATION: (test code = (NOTE) 75493) CPT: (test code = 8140) (NOTE) HPV HIGH RISK WITH GENOTYPE, [id number] 00:00:00 Test Item Value Reference Range Interpretation Comments HPV HIGH RISK INTERP (test NEGATIVE code = 02504) HPV 16 (test code = 59799) TEST NOT PERFORMED HPV 18 (test code = 99863) TEST NOT PERFORMED HPV, HR, OTHER GENOTYPES TEST NOT PERFORMED (test code = 19559) HPV HIGH RISK WITH GENOTYPE, [id number] 00:00:00 Test Item Value Reference Range Interpretation Comments HPV HIGH RISK INTERP (test NEGATIVE code = 75643) HPV 16 (test code = 41886) TEST NOT PERFORMED HPV 18 (test code = 17548) TEST NOT PERFORMED HPV, HR, OTHER GENOTYPES TEST NOT PERFORMED (test code = 29914) PAP TEST, THINPREP, [id number] 00:00:00 Test Item Value Reference Range Interpretation Comments SOURCE: (test code = Cervical/Endocervical 8001) SLIDES: (test code = 1 8011) LMP: (test code = 8021) 06/06/2020 SPECIMEN ADEQUACY: (NOTE) (test code = 19644) INTERPRETATION: (test NILM/NO EPITH. code = 09845) ABNORMALITY;SEE BELOW SHIP CLEANER: (test Vincent code = 8101) VALENTÍN Marquez(ASCP) LOCATION: (test code = (NOTE) 73388) CPT: (test code = 8140) (NOTE) PAP TEST, THINPREP, [id number] 00:00:00 Test Item Value Reference Range Interpretation Comments SOURCE: (test code = Cervical/Endocervical 8001) SLIDES: (test code = 1 8011) LMP: (test code = 8021) 06/06/2020 SPECIMEN ADEQUACY: (NOTE) (test code = 05095) INTERPRETATION: (test NILM/NO EPITH. code = 31430) ABNORMALITY;SEE BELOW SHIP CLEANER: (test Vincent code = 8101) VALENTÍN Marquez(ASCP) LOCATION: (test code = (NOTE) 11397) CPT: (test code = 8140) (NOTE) HPV HIGH RISK WITH GENOTYPE, [id number] 00:00:00 Test Item Value Reference Range Interpretation Comments HPV HIGH RISK INTERP (test NEGATIVE code = 79384) HPV 16 (test code = 31883) TEST NOT PERFORMED HPV 18 (test code = 15489) TEST NOT PERFORMED HPV, HR, OTHER GENOTYPES TEST NOT PERFORMED (test code = 11479) HPV HIGH RISK WITH GENOTYPE, [id number] 00:00:00 Test Item Value Reference Range Interpretation Comments HPV HIGH RISK INTERP (test NEGATIVE code = 71526) HPV 16 (test code = 26869) TEST NOT PERFORMED HPV 18 (test code = 19466) TEST NOT PERFORMED HPV, HR, OTHER GENOTYPES TEST NOT PERFORMED (test code = 33585) HIV AB/AG COMBO RFLX [id number] 00:00:00 Test Item Value Reference Range Interpretation Comments HIV 1/2 4TH GEN, RFLX CONF (test NON-REACTIVE code = 3514) GC AND CHLAMYDIA AMPLIFIED, [id number] 00:00:00 Test Item Value Reference Range Interpretation Comments GONORRHEA, TMA (test code = 20489) NEGATIVE CHLAMYDIA, TMA (test code = 56593) NEGATIVE ACUTE HEPATITIS [id number] 00:00:00 Test Item Value Reference Range Interpretation Comments HEPATITIS A IgM (test code = NON-REACTIVE 97211) HEPATITIS B CORE IgM (test code NON-REACTIVE = 4644) HEPATITIS B SURF AG (test code = NON-REACTIVE 5119) HEPATITIS C ANTIBODY (test code NON-REACTIVE = 4675) INTERPRETATION HEPATITIS A: (NOTE) (test code = 2552) INTERPRETATION HEPATITIS B: (NOTE) (test code = 85021) INTERPRETATION HEPATITIS C: (NOTE) (test code = 77372) [id number] 00:00:00 Test Item Value Reference Range Interpretation Comments RPR RESULT (test code = NON-REACTIVE 3501) RPR TITER (test code = 3500) NOT INDIC. TITER [id number] 00:00:00 Test Item Value Reference Range Interpretation Comments RPR RESULT (test code = NON-REACTIVE 3501) RPR TITER (test code = 3500) NOT INDIC. TITER VAGINAL PATHOGENS DNA [id number] 00:00:00 Test Item Value Reference Range Interpretation Comments CATA SPECIES (test code = 07682) NEGATIVE G. VAGINALIS (test code = 57997) POSITIVE T. VAGINALIS (test code = 51693) NEGATIVE GC AND CHLAMYDIA AMPLIFIED, [id number] 00:00:00 Test Item Value Reference Range Interpretation Comments GONORRHEA, TMA (test code = 09412) NEGATIVE CHLAMYDIA, TMA (test code = 33073) NEGATIVE HIV AB/AG COMBO RFLX [id number] 00:00:00 Test Item Value Reference Range Interpretation Comments HIV 1/2 4TH GEN, RFLX CONF (test NON-REACTIVE code = 3514) GC AND CHLAMYDIA AMPLIFIED, [id number] 00:00:00 Test Item Value Reference Range Interpretation Comments GONORRHEA, TMA (test code = 45001) NEGATIVE CHLAMYDIA, TMA (test code = 68630) NEGATIVE HIV AB/AG COMBO RFLX [id number] 00:00:00 Test Item Value Reference Range Interpretation Comments HIV 1/2 4TH GEN, RFLX CONF (test NON-REACTIVE code = 3514) ACUTE HEPATITIS [id number] 00:00:00 Test Item Value Reference Range Interpretation Comments HEPATITIS A IgM (test code = NON-REACTIVE 44457) HEPATITIS B CORE IgM (test code NON-REACTIVE = 4644) HEPATITIS B SURF AG (test code = NON-REACTIVE 2739) HEPATITIS C ANTIBODY (test code NON-REACTIVE = 4675) INTERPRETATION HEPATITIS A: (NOTE) (test code = 2552) INTERPRETATION HEPATITIS B: (NOTE) (test code = 31307) INTERPRETATION HEPATITIS C: (NOTE) (test code = 71916) ACUTE HEPATITIS [id number] 00:00:00 Test Item Value Reference Range Interpretation Comments HEPATITIS A IgM (test code = NON-REACTIVE 91619) HEPATITIS B CORE IgM (test code NON-REACTIVE = 4644) HEPATITIS B SURF AG (test code = NON-REACTIVE 2739) HEPATITIS C ANTIBODY (test code NON-REACTIVE = 4675) INTERPRETATION HEPATITIS A: (NOTE) (test code = 2552) INTERPRETATION HEPATITIS B: (NOTE) (test code = 11573) INTERPRETATION HEPATITIS C: (NOTE) (test code = 16381) [id number] 00:00:00 Test Item Value Reference Range Interpretation Comments RPR RESULT (test code = NON-REACTIVE 3501) RPR TITER (test code = 3500) NOT INDIC. TITER [id number] 00:00:00 Test Item Value Reference Range Interpretation Comments RPR RESULT (test code = NON-REACTIVE 3501) RPR TITER (test code = 3500) NOT INDIC. TITER [id number] 00:00:00 Test Item Value Reference Range Interpretation Comments RPR RESULT (test code = NON-REACTIVE 3501) RPR TITER (test code = 3500) NOT INDIC. TITER VAGINAL PATHOGENS DNA [id number] 00:00:00 Test Item Value Reference Range Interpretation Comments CATA SPECIES (test code = ) NEGATIVE G. VAGINALIS (test code = 39964) POSITIVE T. VAGINALIS (test code = 72701) NEGATIVE VAGINAL PATHOGENS DNA [id number] 00:00:00 Test Item Value Reference Range Interpretation Comments CATA SPECIES (test code = ) NEGATIVE G. VAGINALIS (test code = 33791) POSITIVE T. VAGINALIS (test code = 13363) NEGATIVE HIV AB/AG COMBO RFLX [id number] 00:00:00 Test Item Value Reference Range Interpretation Comments HIV 1/2 4TH GEN, RFLX CONF (test NON-REACTIVE code = 3514) GC AND CHLAMYDIA AMPLIFIED, [id number] 00:00:00 Test Item Value Reference Range Interpretation Comments GONORRHEA, TMA (test code = 10891) NEGATIVE CHLAMYDIA, TMA (test code = 55752) NEGATIVE GC AND CHLAMYDIA AMPLIFIED, [id number] 00:00:00 Test Item Value Reference Range Interpretation Comments GONORRHEA, TMA (test code = 17111) NEGATIVE CHLAMYDIA, TMA (test code = 17309) NEGATIVE HIV AB/AG COMBO RFLX [id number] 00:00:00 Test Item Value Reference Range Interpretation Comments HIV 1/2 4TH GEN, RFLX CONF (test NON-REACTIVE code = 3514) ACUTE HEPATITIS [id number] 00:00:00 Test Item Value Reference Range Interpretation Comments HEPATITIS A IgM (test code = NON-REACTIVE 81284) HEPATITIS B CORE IgM (test code NON-REACTIVE = 4644) HEPATITIS B SURF AG (test code = NON-REACTIVE 2739) HEPATITIS C ANTIBODY (test code NON-REACTIVE = 4675) INTERPRETATION HEPATITIS A: (NOTE) (test code = 2552) INTERPRETATION HEPATITIS B: (NOTE) (test code = 52501) INTERPRETATION HEPATITIS C: (NOTE) (test code = 71318) ACUTE HEPATITIS [id number] 00:00:00 Test Item Value Reference Range Interpretation Comments HEPATITIS A IgM (test code = NON-REACTIVE 69356) HEPATITIS B CORE IgM (test code NON-REACTIVE = 4644) HEPATITIS B SURF AG (test code = NON-REACTIVE 2739) HEPATITIS C ANTIBODY (test code NON-REACTIVE = 4675) INTERPRETATION HEPATITIS A: (NOTE) (test code = 2552) INTERPRETATION HEPATITIS B: (NOTE) (test code = 36720) INTERPRETATION HEPATITIS C: (NOTE) (test code = 05785) [id number] 00:00:00 Test Item Value Reference Range Interpretation Comments RPR RESULT (test code = NON-REACTIVE 3501) RPR TITER (test code = 3500) NOT INDIC. TITER [id number] 00:00:00 Test Item Value Reference Range Interpretation Comments RPR RESULT (test code = NON-REACTIVE 3501) RPR TITER (test code = 3500) NOT INDIC. TITER [id number] 00:00:00 Test Item Value Reference Range Interpretation Comments RPR RESULT (test code = NON-REACTIVE 3501) RPR TITER (test code = 3500) NOT INDIC. TITER VAGINAL PATHOGENS DNA [id number] 00:00:00 Test Item Value Reference Range Interpretation Comments CATA SPECIES (test code = ) NEGATIVE G. VAGINALIS (test code = 71169) POSITIVE T. VAGINALIS (test code = 20291) NEGATIVE VAGINAL PATHOGENS DNA [id number] 00:00:00 Test Item Value Reference Range Interpretation Comments CATA SPECIES (test code = ) NEGATIVE G. VAGINALIS (test code = 35291) POSITIVE T. VAGINALIS (test code = 82121) NEGATIVE H. PYLORI AG, [id number] 00:00:00 Test Item Value Reference Range Interpretation Comments H. PYLORI AG, STOOL (test code = NEGATIVE 04905) H. PYLORI AG, [id number] 00:00:00 Test Item Value Reference Range Interpretation Comments H. PYLORI AG, STOOL (test code = NEGATIVE 70849) H. PYLORI AG, [id number] 00:00:00 Test Item Value Reference Range Interpretation Comments H. PYLORI AG, STOOL (test code = NEGATIVE 34327) H. PYLORI AG, [id number] 00:00:00 Test Item Value Reference Range Interpretation Comments H. PYLORI AG, STOOL (test code = NEGATIVE 20559) H. PYLORI AG, [id number] 00:00:00 Test Item Value Reference Range Interpretation Comments H. PYLORI AG, STOOL (test code = NEGATIVE 08831) COVID-19 (ID NOW RAPID TESTING)2020-02-02 23:10:00 Test Item Value Reference Range Interpretation Comments SARS-CoV-2 Rapid ID NOW Not Detected Not Detected (test code = 89584-9) TOMA (test code = TOMA) ID NOW COVID-19 Assay is an isothermal nucleic acid amplification test intended for the qualitative detection of nucleic acid from SARS-CoV-2 viral RNA in nasopharyngeal ([employer]) specimens. It is used under Emergency Use [...] indicated. Lab Interpretation Normal (test code = 38748-8) [facility] Test Item Value Reference Range Interpretation Comments APPEARANCE (test code = Hazy Clear A 1458525399) COLOR (test code = Yellow Yellow 5341912560) PH (test code = 4.8-8.0 6728019905) SP GRAVITY (test code = 1.003-1.030 0692346335) GLU U QUAL (test code = Normal Normal 2916188911) BLOOD (test code = Negative Negative 1761072248) KETONES (test code = Negative Negative 8197502699) PROTEIN (test code = Negative Negative 2887-8) UROBILIN (test code = Normal Normal 0932557314) BILIRUBIN (test code = Negative Negative 5073394575) NITRITE (test code = Negative Negative 3973228608) LEUK CHARLES (test code = Negative Negative 6270419643) RBC/HPF (test code = See_Comment H [Autom ated message] 8807452555) The system [employer] generated this result transmitted ref erence range: 0 - 3 HP F. The reference range was not used to int erpret this result as normal/abnormal . WBC/HPF (test code = See_Comment [Autom ated message] 0057126990) The system [employer] generated this result transmitted ref erence range: 0 - 5 HP F. The reference range was not used to int erpret this result as normal/abnormal . BACTERIA (test code = Few Negative A 4395729882) MUCOUS (test code = Moderate Negative LPF A 9174718368) SQ EPITH (test code = HPF 3072740608) HYAL CAST (test code = See_Comment [Aut omated message] 1748216316) The system [employer] generated this result transmitted ref erence range: <=2 LPF. The reference range was not used to int erpret this result as normal/abnormal . Lab Interpretation (test Abnormal code = 96436-0) [facility] (29312)2020-02-02 22:52:00 Test Item Value Reference Range Interpretation Comments NA (test code = 140 mmol/L 135-145 6883106896) K (test code = 3.8 mmol/L 3.5-5 9133197641) CL (test code = 111 mmol/L 98-108 H 7907491908) CO2 TOTAL (test code = 20 mmol/L 23-31 L 4358984167) AGAP (test code = 2-16 8815513579) BUN (test code = 10 mg/dL 7-23 6523944548) GLUCOSE (test code = 94 mg/dL 70-110 9331258420) CREATININE (test code = 1.11 mg/dL 0.5-1.04 H 4291629405) TOTAL BILI (test code = 0.4 mg/dL 0.1-1.1 6354068967) CALCIUM (test code = 8.8 mg/dL 8.6-10.6 5799028571) T PROTEIN (test code = 8.4 g/dL 6.3-8.2 H 2507307430) ALBUMIN (test code = 4.4 g/dL 3.5-5 9561839274) ALK PHOS (test code = 97 U/L 34-122 1854641352) ALTv (test code = 36 U/L 5-35 H 1742-6) AST(SGOT) (test code = 44 U/L 13-40 H 0193905819) eGFR Calculation mL/min/1.73m2 (Non-) (test code = 4645521856) eGFR Calculation mL/min/1.73m2 () (test code = 2594745469) TOMA (test code = TOMA) Association of [...] tests). Lab Interpretation Abnormal (test code = 10253-1) [facility] WO [id number] 22:35:331. No definite acute intra-abdominal or intrapelvic [...] suspicious abnormality of the bones is seen. [facility], Radiant Results Inft User - 02/02/2020 5:36 [...] without evidence of diverticulitis4. Hepatic steatosis5. Fibroids [facility] WITH [id number] 22:29:00 Test Item Value Reference Range Interpretation Comments WBC (test code = See_Comment [Automated message] 0590-2) The system [employer] generated this result transmitted ref erence range: 4.30 - 1 1.10 10*3/?L. The re ference range was not u sed to interpret this result as normal/abnor mal. RBC (test code = See_Comment [Automated message] 789-8) The system [employer] generated this result transmitted ref erence range: [...] RDW-SD (test code 45.1 fL 39-49.9 = 16273-5) RDW-CV (test code 14.2 % 12-15.5 = 788-0) PLT (test code = See_Comment [Automated message] 777-3) The system whic h generated this result transmitted ref erence range: 166 - 35 8 10*3/?L. The re ference range was not u sed to interpret this result as normal/abnor mal. MPV (test code = 9.7 fL 9.5-12.9 96259-2) NRBC/100 WBC (test See_Comment [Automat ed message] code = 3813240728) The syste m which generated this result transmitted ref erence range: 0.0 - 10 .0 /100 WBCs. The refer ence range was not u sed to interpret this result as normal/abnor mal. NRBC x10^3 (test <0.01 See_Comment [Automated message] code = 4062438436) The syste m which generated this result transmitted ref erence range: 10*3/?L. The reference range was not used to interpr et this result as normal/abnormal . GRAN MAT (NEUT) % 59.9 % (test code = 770-8) IMM GRAN % (test 0.50 % code = 1547456645) LYMPH % (test code 29.0 % = 736-9) MONO % (test code 9.4 % = 5905-5) EOS % (test code = 0.9 % 713-8) BASO % (test code 0.3 % = 706-2) GRAN MAT 4.70 10*3/uL 1.88-7.09 x10^3(ANC) (test code = 9633387721) IMM GRAN x10^3 0.04 10*3/uL 0-0.06 (test code = 8646794890) LYMPH x10^3 (test 2.28 10*3/uL 1.32-3.29 code = 731-0) MONO x10^3 (test 0.74 10*3/uL 0.33-0.92 code = 742-7) EOS x10^3 (test 0.07 10*3/uL 0.03-0.39 code = 711-2) BASO x10^3 (test <0.03 0.01-0.07 code = 704-7) [facility] 1 VW [id number] 22:28:10 1. Abnormal changes in the right upper lobe suggestive of pneumonia,including COVID-19 pneumonia. Disclaimer: Generally, the findings on chest imaging in COVID-19 are notspecific, and overlap with other infections, including influenza, H1N1,SARS and MERS.According to the Centers for Disease Control (CDC) and the [employer], viral testing remains the only [...] Centers for Disease Control (CDC) and the [employer] [place], viral testing remains the only specific method of diagnosiseven if CXR or CT findings aresuggestive of COVID-19.[facility] [id number] 21:58:00 Test Item Value Reference Range Interpretation Comments POCT PREG (test code = 1605) negative On board controls acceptable with present C Line (test code = 3574) POCT PREG LOT # (test code = 3575) [id number] POCT PREG TEST DATE (test 02-13-2021 code = 3576) Lab Interpretation (test code = Normal 28096-8) [facility] [id number] 00:00:00 Test Item Value Reference Range Interpretation Comments HEMOGLOBIN A1c (test code = 06923) 5.5 % HEMOGLOBIN [id number] 00:00:00 Test Item Value Reference Range Interpretation Comments HEMOGLOBIN A1c (test code = 21145) 5.5 % LIPID [id number] 00:00:00 Test Item Value Reference Range Interpretation Comments CHOLESTEROL (test code = 2210) 168 MG/DL TRIGLYCERIDES (test code = 2232) 143 MG/DL HDL CHOLESTEROL (test code = 2220) 57 MG/DL CALC LDL CHOL (test code = 2237) 87 MG/DL RISK RATIO LDL/HDL (test code = 1.53 RATIO 2238) COMPREHENSIVE METABOLIC [id number] 00:00:00 Test Item Value Reference Range Interpretation Comments GLUCOSE (test code = 2217) 93 MG/DL BUN (test code = 2208) 9 MG/DL CREATININE (test code = 2214) 0.86 MG/DL eGFR AMER. (test code 95 ML/MIN/1.73 = 01058) eGFR NON- AMER. (test 82 ML/MIN/1.73 code = 45586) CALC BUN/CREAT (test code = 10 RATIO [...] ALT (test code = 2219) 30 U/L HEMOGLOBIN [id number] 00:00:00 Test Item Value Reference Range Interpretation Comments HEMOGLOBIN A1c (test code = 50841) 5.5 % HEMOGLOBIN [id number] 00:00:00 Test Item Value Reference Range Interpretation Comments HEMOGLOBIN A1c (test code = 33524) 5.5 % HEMOGLOBIN [id number] 00:00:00 Test Item Value Reference Range Interpretation Comments HEMOGLOBIN A1c (test code = 50235) 5.5 % LIPID [id number] 00:00:00 Test Item Value Reference Range Interpretation Comments CHOLESTEROL (test code = 2210) 168 MG/DL TRIGLYCERIDES (test code = 2232) 143 MG/DL HDL CHOLESTEROL (test code = 2220) 57 MG/DL CALC LDL CHOL (test code = 2237) 87 MG/DL RISK RATIO LDL/HDL (test code = 1.53 RATIO 2238) LIPID [id number] 00:00:00 Test Item Value Reference Range Interpretation Comments CHOLESTEROL (test code = 2210) 168 MG/DL TRIGLYCERIDES (test code = 2232) 143 MG/DL HDL CHOLESTEROL (test code = 2220) 57 MG/DL CALC LDL CHOL (test code = 2237) 87 MG/DL RISK RATIO LDL/HDL (test code = 1.53 RATIO 2238) COMPREHENSIVE METABOLIC [id number] 00:00:00 Test Item Value Reference Range Interpretation Comments GLUCOSE (test code = 2217) 93 MG/DL BUN (test code = 2208) 9 MG/DL CREATININE (test code = 2214) 0.86 MG/DL eGFR AMER. (test code 95 ML/MIN/1.73 = 61851) eGFR NON- AMER. (test 82 ML/MIN/1.73 code = 31843) CALC BUN/CREAT (test code = 10 RATIO [...] CALC GLOBULIN (test code = 3.0 G/DL 2239) CALC A/G RATIO (test code = 1.5 RATIO 2234) BILIRUBIN, TOTAL (test code = <0.2 MG/DL 2206) ALKALINE PHOSPHATASE (test 94 U/L code = 2204) AST (test code = 2218) 24 U/L ALT (test code = 2219) 30 U/L COMPREHENSIVE METABOLIC [id number] 00:00:00 Test Item Value Reference Range Interpretation Comments GLUCOSE (test code = 2217) 93 MG/DL BUN (test code = 2208) 9 MG/DL CREATININE (test code = 2214) 0.86 MG/DL eGFR AMER. (test code 95 ML/MIN/1.73 = 65415) eGFR NON- AMER. (test 82 ML/MIN/1.73 code = 52145) CALC BUN/CREAT (test code = 10 RATIO [...] A/G RATIO (test code = 1.5 RATIO 4) BILIRUBIN, TOTAL (test code = <0.2 MG/DL 2206) ALKALINE PHOSPHATASE (test 94 U/L code = 2204) AST (test code = 2218) 24 U/L ALT (test code = 2219) 30 U/L HEMOGLOBIN [id number] 00:00:00 Test Item Value Reference Range Interpretation Comments HEMOGLOBIN A1c (test code = 88504) 5.5 % HEMOGLOBIN [id number] 00:00:00 Test Item Value Reference Range Interpretation Comments HEMOGLOBIN A1c (test code = 71835) 5.5 % HEMOGLOBIN [id number] 00:00:00 Test Item Value Reference Range Interpretation Comments HEMOGLOBIN A1c (test code = 96636) 5.5 % LIPID [id number] 00:00:00 Test Item Value Reference Range Interpretation Comments CHOLESTEROL (test code = 2210) 168 MG/DL TRIGLYCERIDES (test code = 2232) 143 MG/DL HDL CHOLESTEROL (test code = 2220) 57 MG/DL CALC LDL CHOL (test code = 2237) 87 MG/DL RISK RATIO LDL/HDL (test code = 1.53 RATIO 2238) LIPID [id number] 00:00:00 Test Item Value Reference Range Interpretation Comments CHOLESTEROL (test code = 2210) 168 MG/DL TRIGLYCERIDES (test code = 2232) 143 MG/DL HDL CHOLESTEROL (test code = 2220) 57 MG/DL CALC LDL CHOL (test code = 2237) 87 MG/DL RISK RATIO LDL/HDL (test code = 1.53 RATIO 2238) COMPREHENSIVE METABOLIC [id number] 00:00:00 Test Item Value Reference Range Interpretation Comments GLUCOSE (test code = 2217) 93 MG/DL BUN (test code = 2208) 9 MG/DL CREATININE (test code = 2214) 0.86 MG/DL eGFR AMER. (test code 95 ML/MIN/1.73 = 07369) eGFR NON- AMER. (test 82 ML/MIN/1.73 code = 62870) CALC BUN/CREAT (test code = 10 RATIO [...] ALT (test code = 2219) 30 U/L COMPREHENSIVE METABOLIC [id number] 00:00:00 Test Item Value Reference Range Interpretation Comments GLUCOSE (test code = 2217) 93 MG/DL BUN (test code = 2208) 9 MG/DL CREATININE (test code = 2214) 0.86 MG/DL eGFR AMER. (test code 95 ML/MIN/1.73 = 64506) eGFR NON- AMER. (test 82 ML/MIN/1.73 code = 97428) CALC BUN/CREAT (test code = 10 RATIO [...] CALC GLOBULIN (test code = 3.0 G/DL 2239) CALC A/G RATIO (test code = 1.5 RATIO 2233) BILIRUBIN, TOTAL (test code = <0.2 MG/DL 2206) ALKALINE PHOSPHATASE (test 94 U/L code = 220) AST (test code = 2218) 24 U/L ALT (test code = 2219) 30 U/L CBC W/AUTO [id number] 00:00:00 Test Item Value Reference Range Interpretation [...] code = 1015) 374 K/UL CBC W/AUTO [id number] 00:00:00 Test Item Value Reference Range Interpretation [...] code = 1015) 374 K/UL COMPREHENSIVE METABOLIC [id number] 00:00:00 Test Item Value Reference Range Interpretation Comments GLUCOSE (test code = 2217) 86 MG/DL BUN (test code = 2208) 8 MG/DL CREATININE (test code = 2214) 0.93 MG/DL eGFR AMER. (test code 87 ML/MIN/1.73 = 37426) eGFR NON- AMER. (test 75 ML/MIN/1.73 code = 37525) CALC BUN/CREAT (test code = 9 RATIO [...] A/G RATIO (test code = 1.2 RATIO 2233) BILIRUBIN, TOTAL (test code = <0.2 MG/DL 2206) ALKALINE PHOSPHATASE (test 118 U/L code = 2204) AST (test code = 2218) 27 U/L ALT (test code = 2219) 19 U/L LIPID [id number] 00:00:00 Test Item Value Reference Range Interpretation Comments CHOLESTEROL (test code = 2210) 181 MG/DL TRIGLYCERIDES (test code = 2232) 291 MG/DL HDL CHOLESTEROL (test code = 2220) 42 MG/DL CALC LDL CHOL (test code = 2237) 81 MG/DL RISK RATIO LDL/HDL (test code = 1.92 RATIO 2238) CBC W/AUTO [id number] 00:00:00 Test Item Value Reference Range Interpretation [...] code = 1015) 374 K/UL CBC W/AUTO [id number] 00:00:00 Test Item Value Reference Range Interpretation [...] code = 1015) 374 K/UL CBC W/AUTO [id number] 00:00:00 Test Item Value Reference Range Interpretation [...] code = 1015) 374 K/UL COMPREHENSIVE METABOLIC [id number] 00:00:00 Test Item Value Reference Range Interpretation Comments GLUCOSE (test code = 2217) 86 MG/DL BUN (test code = 2208) 8 MG/DL CREATININE (test code = 2214) 0.93 MG/DL eGFR AMER. (test code 87 ML/MIN/1.73 = 33420) eGFR NON- AMER. (test 75 ML/MIN/1.73 code = 84736) CALC BUN/CREAT (test code = 9 RATIO [...] ALT (test code = 2219) 19 U/L COMPREHENSIVE METABOLIC [id number] 00:00:00 Test Item Value Reference Range Interpretation Comments GLUCOSE (test code = 2217) 86 MG/DL BUN (test code = 2208) 8 MG/DL CREATININE (test code = 2214) 0.93 MG/DL eGFR AMER. (test code 87 ML/MIN/1.73 = 05922) eGFR NON- AMER. (test 75 ML/MIN/1.73 code = 84749) CALC BUN/CREAT (test code = 9 RATIO [...] CALC GLOBULIN (test code = 3.4 G/DL 2239) CALC A/G RATIO (test code = 1.2 RATIO 2234) BILIRUBIN, TOTAL (test code = <0.2 MG/DL 2206) ALKALINE PHOSPHATASE (test 118 U/L code = 2204) AST (test code = 2218) 27 U/L ALT (test code = 2219) 19 U/L LIPID [id number] 00:00:00 Test Item Value Reference Range Interpretation Comments CHOLESTEROL (test code = 2210) 181 MG/DL TRIGLYCERIDES (test code = 2232) 291 MG/DL HDL CHOLESTEROL (test code = 2220) 42 MG/DL CALC LDL CHOL (test code = 2237) 81 MG/DL RISK RATIO LDL/HDL (test code = 1.92 RATIO 2238) LIPID [id number] 00:00:00 Test Item Value Reference Range Interpretation Comments CHOLESTEROL (test code = 2210) 181 MG/DL TRIGLYCERIDES (test code = 2232) 291 MG/DL HDL CHOLESTEROL (test code = 2220) 42 MG/DL CALC LDL CHOL (test code = 2237) 81 MG/DL RISK RATIO LDL/HDL (test code = 1.92 RATIO 2238) CBC W/AUTO [id number] 00:00:00 Test Item Value Reference Range Interpretation [...] code = 1015) 374 K/UL CBC W/AUTO [id number] 00:00:00 Test Item Value Reference Range Interpretation [...] code = 1015) 374 K/UL CBC W/AUTO [id number] 00:00:00 Test Item Value Reference Range Interpretation [...] code = 1015) 374 K/UL COMPREHENSIVE METABOLIC [id number] 00:00:00 Test Item Value Reference Range Interpretation Comments GLUCOSE (test code = 2217) 86 MG/DL BUN (test code = 2208) 8 MG/DL CREATININE (test code = 2214) 0.93 MG/DL eGFR AMER. (test code 87 ML/MIN/1.73 = 05111) eGFR NON- AMER. (test 75 ML/MIN/1.73 code = 58644) CALC BUN/CREAT (test code = 9 RATIO 2235) SODIUM (test code = 2231) 134 MEQ/L POTASSIUM (test code = 2228) 5.7 MEQ/L CHLORIDE (test code = 2215) 102 MEQ/L CARBON DIOXIDE (test code = 14 MEQ/L 220) CALCIUM (test code = 2209) 9.1 MG/DL [...] ALT (test code = 2219) 19 U/L COMPREHENSIVE METABOLIC [id number] 00:00:00 Test Item Value Reference Range Interpretation Comments GLUCOSE (test code = 2217) 86 MG/DL BUN (test code = 2208) 8 MG/DL CREATININE (test code = 2214) 0.93 MG/DL eGFR AMER. (test code 87 ML/MIN/1.73 = 61609) eGFR NON- AMER. (test 75 ML/MIN/1.73 code = 82870) CALC BUN/CREAT (test code = 9 RATIO 2235) SODIUM (test code = 2231) 134 MEQ/L POTASSIUM (test code = 2228) 5.7 MEQ/L CHLORIDE (test code = 2215) 102 MEQ/L CARBON DIOXIDE (test code = 14 MEQ/L 220) CALCIUM (test code = 2209) 9.1 MG/DL [...] (test code = 2219) 19 U/L LIPID [id number] 00:00:00 Test Item Value Reference Range Interpretation Comments CHOLESTEROL (test code = 2210) 181 MG/DL TRIGLYCERIDES (test code = 2232) 291 MG/DL HDL CHOLESTEROL (test code = 2220) 42 MG/DL CALC LDL CHOL (test code = 2237) 81 MG/DL RISK RATIO LDL/HDL (test code = 1.92 RATIO 2238) LIPID [id number] 00:00:00 Test Item Value Reference Range Interpretation Comments CHOLESTEROL (test code = 2210) 181 MG/DL TRIGLYCERIDES (test code = 2232) 291 MG/DL HDL CHOLESTEROL (test code = 2220) 42 MG/DL CALC LDL CHOL (test code = 2237) 81 MG/DL RISK RATIO LDL/HDL (test code = 1.92 RATIO 2238) HIV AB/AG COMBO RFLX [id number] 00:00:00 Test Item Value Reference Range Interpretation Comments HIV 1/2 4TH GEN, RFLX CONF (test NON-REACTIVE code = 3514) ACUTE HEPATITIS [id number] 00:00:00 Test Item Value Reference Range Interpretation Comments HEPATITIS A IgM (test code = NON-REACTIVE 79890) HEPATITIS B CORE IgM (test code NON-REACTIVE = 4644) HEPATITIS B SURF AG (test code = NON-REACTIVE 2739) HEPATITIS C ANTIBODY (test code NON-REACTIVE = 4675) HCV INDEX (test code = 93010) 0.11 INTERPRETATION HEPATITIS A: (NOTE) (test code = 2552) INTERPRETATION HEPATITIS B: (NOTE) (test code = 46552) INTERPRETATION HEPATITIS C: (NOTE) (test code = 59182) [id number] 00:00:00 Test Item Value Reference Range Interpretation Comments RPR RESULT (test code = NON-REACTIVE 3501) RPR TITER (test code = 3500) NOT INDIC. TITER [id number] 00:00:00 Test Item Value Reference Range Interpretation Comments RPR RESULT (test code = NON-REACTIVE 3501) RPR TITER (test code = 3500) NOT INDIC. TITER GC AND CHLAMYDIA, AMPLIFIED, [id number] 00:00:00 Test Item Value Reference Range Interpretation Comments GONORRHEA, TMA (test code = 26203) NEGATIVE CHLAMYDIA, TMA (test code = 80961) NEGATIVE HIV AB/AG COMBO RFLX [id number] 00:00:00 Test Item Value Reference Range Interpretation Comments HIV 1/2 4TH GEN, RFLX CONF (test NON-REACTIVE code = 3514) HIV AB/AG COMBO RFLX [id number] 00:00:00 Test Item Value Reference Range Interpretation Comments HIV 1/2 4TH GEN, RFLX CONF (test NON-REACTIVE code = 3514) ACUTE HEPATITIS [id number] 00:00:00 Test Item Value Reference Range Interpretation Comments HEPATITIS A IgM (test code = NON-REACTIVE 93185) HEPATITIS B CORE IgM (test code NON-REACTIVE = 4644) HEPATITIS B SURF AG (test code = NON-REACTIVE 2739) HEPATITIS C ANTIBODY (test code NON-REACTIVE = 4675) HCV INDEX (test code = 47583) 0.11 INTERPRETATION HEPATITIS A: (NOTE) (test code = 2552) INTERPRETATION HEPATITIS B: (NOTE) (test code = 30409) INTERPRETATION HEPATITIS C: (NOTE) (test code = 80463) ACUTE HEPATITIS [id number] 00:00:00 Test Item Value Reference Range Interpretation Comments HEPATITIS A IgM (test code = NON-REACTIVE 10166) HEPATITIS B CORE IgM (test code NON-REACTIVE = 4644) HEPATITIS B SURF AG (test code = NON-REACTIVE 2739) HEPATITIS C ANTIBODY (test code NON-REACTIVE = 4675) HCV INDEX (test code = 28731) 0.11 INTERPRETATION HEPATITIS A: (NOTE) (test code = 2552) INTERPRETATION HEPATITIS B: (NOTE) (test code = 67390) INTERPRETATION HEPATITIS C: (NOTE) (test code = 56027) [id number] 00:00:00 Test Item Value Reference Range Interpretation Comments RPR RESULT (test code = NON-REACTIVE 3501) RPR TITER (test code = 3500) NOT INDIC. TITER [id number] 00:00:00 Test Item Value Reference Range Interpretation Comments RPR RESULT (test code = NON-REACTIVE 3501) RPR TITER (test code = 3500) NOT INDIC. TITER [id number] 00:00:00 Test Item Value Reference Range Interpretation Comments RPR RESULT (test code = NON-REACTIVE 3501) RPR TITER (test code = 3500) NOT INDIC. TITER GC AND CHLAMYDIA, AMPLIFIED, [id number] 00:00:00 Test Item Value Reference Range Interpretation Comments GONORRHEA, TMA (test code = 17680) NEGATIVE CHLAMYDIA, TMA (test code = 48021) NEGATIVE GC AND CHLAMYDIA, AMPLIFIED, [id number] 00:00:00 Test Item Value Reference Range Interpretation Comments GONORRHEA, TMA (test code = 93544) NEGATIVE CHLAMYDIA, TMA (test code = 78673) NEGATIVE HIV AB/AG COMBO RFLX [id number] 00:00:00 Test Item Value Reference Range Interpretation Comments HIV 1/2 4TH GEN, RFLX CONF (test NON-REACTIVE code = 3514) HIV AB/AG COMBO RFLX [id number] 00:00:00 Test Item Value Reference Range Interpretation Comments HIV 1/2 4TH GEN, RFLX CONF (test NON-REACTIVE code = 3514) ACUTE HEPATITIS [id number] 00:00:00 Test Item Value Reference Range Interpretation Comments HEPATITIS A IgM (test code = NON-REACTIVE 17567) HEPATITIS B CORE IgM (test code NON-REACTIVE = 4644) HEPATITIS B SURF AG (test code = NON-REACTIVE 2739) HEPATITIS C ANTIBODY (test code NON-REACTIVE = 4675) HCV INDEX (test code = 12205) 0.11 INTERPRETATION HEPATITIS A: (NOTE) (test code = 2552) INTERPRETATION HEPATITIS B: (NOTE) (test code = 62483) INTERPRETATION HEPATITIS C: (NOTE) (test code = 38461) ACUTE HEPATITIS [id number] 00:00:00 Test Item Value Reference Range Interpretation Comments HEPATITIS A IgM (test code = NON-REACTIVE 00444) HEPATITIS B CORE IgM (test code NON-REACTIVE = 4644) HEPATITIS B SURF AG (test code = NON-REACTIVE 2739) HEPATITIS C ANTIBODY (test code NON-REACTIVE = 4675) HCV INDEX (test code = 21693) 0.11 INTERPRETATION HEPATITIS A: (NOTE) (test code = 2552) INTERPRETATION HEPATITIS B: (NOTE) (test code = 25669) INTERPRETATION HEPATITIS C: (NOTE) (test code = 02738) [id number] 00:00:00 Test Item Value Reference Range Interpretation Comments RPR RESULT (test code = NON-REACTIVE 3501) RPR TITER (test code = 3500) NOT INDIC. TITER [id number] 00:00:00 Test Item Value Reference Range Interpretation Comments RPR RESULT (test code = NON-REACTIVE 3501) RPR TITER (test code = 3500) NOT INDIC. TITER [id number] 00:00:00 Test Item Value Reference Range Interpretation Comments RPR RESULT (test code = NON-REACTIVE 3501) RPR TITER (test code = 3500) NOT INDIC. TITER GC AND CHLAMYDIA, AMPLIFIED, [id number] 00:00:00 Test Item Value Reference Range Interpretation Comments GONORRHEA, TMA (test code = 44823) NEGATIVE CHLAMYDIA, TMA (test code = 83193) NEGATIVE GC AND CHLAMYDIA, AMPLIFIED, [id number] 00:00:00 Test Item Value Reference Range Interpretation Comments GONORRHEA, TMA (test code = 07206) NEGATIVE CHLAMYDIA, TMA (test code = 74269) NEGATIVE CBC W/AUTO [id number] 00:00:00 Test Item Value Reference Range Interpretation [...] code = 1015) 374 K/UL CBC W/AUTO [id number] 00:00:00 Test Item Value Reference Range Interpretation [...] code = 1015) 374 K/UL COMPREHENSIVE METABOLIC [id number] 00:00:00 Test Item Value Reference Range Interpretation Comments GLUCOSE (test code = 2217) 96 MG/DL BUN (test code = 2208) 9 MG/DL CREATININE (test code = 2214) 0.73 MG/DL eGFR AMER. (test code 117 ML/MIN/1.73 = 80544) eGFR NON- AMER. (test 101 ML/MIN/1.73 code = 05511) CALC BUN/CREAT (test code = 12 RATIO [...] CALC GLOBULIN (test code = 3.2 G/DL 2240) CALC A/G RATIO (test code = 1.4 RATIO 2234) BILIRUBIN, TOTAL (test code = <0.2 MG/DL 2206) ALKALINE PHOSPHATASE (test 105 U/L code = 2204) AST (test code = 2218) 18 U/L ALT (test code = 2219) 16 U/L LIPID [id number] 00:00:00 Test Item Value Reference Range Interpretation Comments CHOLESTEROL (test code = 2210) 188 MG/DL TRIGLYCERIDES (test code = 2232) 162 MG/DL HDL CHOLESTEROL (test code = 2220) 48 MG/DL CALC LDL CHOL (test code = 2237) 108 MG/DL RISK RATIO LDL/HDL (test code = 2.24 RATIO 2238) [id number] 00:00:00 Test Item Value Reference Range Interpretation Comments TSH, THIRD GENERATION (test code 1.150 UIU/ML = 2821) [id number] 00:00:00 Test Item Value Reference Range Interpretation Comments TSH, THIRD GENERATION (test code 1.150 UIU/ML = 2821) HEMOGLOBIN [id number] 00:00:00 Test Item Value Reference Range Interpretation Comments HEMOGLOBIN A1c (test code = 23628) 5.4 % HEMOGLOBIN [id number] 00:00:00 Test Item Value Reference Range Interpretation Comments HEMOGLOBIN A1c (test code = 82100) 5.4 % CBC W/AUTO [id number] 00:00:00 Test Item Value Reference Range Interpretation [...] code = 1015) 374 K/UL CBC W/AUTO [id number] 00:00:00 Test Item Value Reference Range Interpretation [...] code = 1015) 374 K/UL CBC W/AUTO [id number] 00:00:00 Test Item Value Reference Range Interpretation [...] code = 1015) 374 K/UL COMPREHENSIVE METABOLIC [id number] 00:00:00 Test Item Value Reference Range Interpretation Comments GLUCOSE (test code = 2217) 96 MG/DL BUN (test code = 2208) 9 MG/DL CREATININE (test code = 2214) 0.73 MG/DL eGFR AMER. (test code 117 ML/MIN/1.73 = 26260) eGFR NON- AMER. (test 101 ML/MIN/1.73 code = 94268) CALC BUN/CREAT (test code = 12 RATIO 2235) SODIUM (test code = 2231) 144 MEQ/L POTASSIUM (test code = 2228) 4.0 MEQ/L CHLORIDE (test code = 2215) 104 MEQ/L CARBON DIOXIDE (test code = 23 MEQ/L 2206) CALCIUM (test code = 2209) 9.5 MG/DL PROTEIN, TOTAL (test code = 7.8 G/DL 2228) ALBUMIN (test code = 2201) 4.6 G/DL CALC GLOBULIN (test code = 3.2 G/DL 2240) CALC A/G RATIO (test code = 1.4 RATIO 223) BILIRUBIN, TOTAL (test code = <0.2 MG/DL 2207) ALKALINE PHOSPHATASE (test 105 U/L code = 2204) AST (test code = 2218) 18 U/L ALT (test code = 2219) 16 U/L COMPREHENSIVE METABOLIC [id number] 00:00:00 Test Item Value Reference Range Interpretation Comments GLUCOSE (test code = 2217) 96 MG/DL BUN (test code = 2208) 9 MG/DL CREATININE (test code = 2214) 0.73 MG/DL eGFR AMER. (test code 117 ML/MIN/1.73 = 07149) eGFR NON- AMER. (test 101 ML/MIN/1.73 code = 12797) CALC BUN/CREAT (test code = 12 RATIO [...] CALC GLOBULIN (test code = 3.2 G/DL 2240) CALC A/G RATIO (test code = 1.4 RATIO 2234) BILIRUBIN, TOTAL (test code = <0.2 MG/DL 2206) ALKALINE PHOSPHATASE (test 105 U/L code = 2204) AST (test code = 2218) 18 U/L ALT (test code = 2219) 16 U/L LIPID [id number] 00:00:00 Test Item Value Reference Range Interpretation Comments CHOLESTEROL (test code = 2210) 188 MG/DL TRIGLYCERIDES (test code = 2232) 162 MG/DL HDL CHOLESTEROL (test code = 2220) 48 MG/DL CALC LDL CHOL (test code = 2237) 108 MG/DL RISK RATIO LDL/HDL (test code = 2.24 RATIO 2238) LIPID [id number] 00:00:00 Test Item Value Reference Range Interpretation Comments CHOLESTEROL (test code = 2210) 188 MG/DL TRIGLYCERIDES (test code = 2232) 162 MG/DL HDL CHOLESTEROL (test code = 2220) 48 MG/DL CALC LDL CHOL (test code = 2237) 108 MG/DL RISK RATIO LDL/HDL (test code = 2.24 RATIO 2238) [id number] 00:00:00 Test Item Value Reference Range Interpretation Comments TSH, THIRD GENERATION (test code 1.150 UIU/ML = 2821) [id number] 00:00:00 Test Item Value Reference Range Interpretation Comments TSH, THIRD GENERATION (test code 1.150 UIU/ML = 2821) [id number] 00:00:00 Test Item Value Reference Range Interpretation Comments TSH, THIRD GENERATION (test code 1.150 UIU/ML = 2821) HEMOGLOBIN [id number] 00:00:00 Test Item Value Reference Range Interpretation Comments HEMOGLOBIN A1c (test code = 09154) 5.4 % HEMOGLOBIN [id number] 00:00:00 Test Item Value Reference Range Interpretation Comments HEMOGLOBIN A1c (test code = 20586) 5.4 % HEMOGLOBIN [id number] 00:00:00 Test Item Value Reference Range Interpretation Comments HEMOGLOBIN A1c (test code = 48127) 5.4 % CBC W/AUTO [id number] 00:00:00 Test Item Value Reference Range Interpretation [...] code = 1015) 374 K/UL CBC W/AUTO [id number] 00:00:00 Test Item Value Reference Range Interpretation [...] code = 1015) 374 K/UL CBC W/AUTO [id number] 00:00:00 Test Item Value Reference Range Interpretation [...] code = 1015) 374 K/UL COMPREHENSIVE METABOLIC [id number] 00:00:00 Test Item Value Reference Range Interpretation Comments GLUCOSE (test code = 2217) 96 MG/DL BUN (test code = 2208) 9 MG/DL CREATININE (test code = 2214) 0.73 MG/DL eGFR AMER. (test code 117 ML/MIN/1.73 = 11159) eGFR NON- AMER. (test 101 ML/MIN/1.73 code = 24576) CALC BUN/CREAT (test code = 12 RATIO 2235) SODIUM (test code = 2231) 144 MEQ/L POTASSIUM (test code = 2228) 4.0 MEQ/L CHLORIDE (test code = 2215) 104 MEQ/L CARBON DIOXIDE (test code = 23 MEQ/L 2206) CALCIUM (test code = 2209) 9.5 MG/DL PROTEIN, TOTAL (test code = 7.8 G/DL 222) ALBUMIN (test code = 2201) 4.6 G/DL CALC GLOBULIN (test code = 3.2 G/DL 2240) CALC A/G RATIO (test code = 1.4 RATIO 2234) BILIRUBIN, TOTAL (test code = <0.2 MG/DL 220) ALKALINE PHOSPHATASE (test 105 U/L code = 2204) AST (test code = 2218) 18 U/L ALT (test code = 2219) 16 U/L COMPREHENSIVE METABOLIC [id number] 00:00:00 Test Item Value Reference Range Interpretation Comments GLUCOSE (test code = 2217) 96 MG/DL BUN (test code = 2208) 9 MG/DL CREATININE (test code = 2214) 0.73 MG/DL eGFR AMER. (test code 117 ML/MIN/1.73 = 24250) eGFR NON- AMER. (test 101 ML/MIN/1.73 code = 46527) CALC BUN/CREAT (test code = 12 RATIO 2235) SODIUM (test code = 2231) 144 MEQ/L POTASSIUM (test code = 2228) 4.0 MEQ/L CHLORIDE (test code = 2215) 104 MEQ/L CARBON DIOXIDE (test code = 23 MEQ/L 2206) CALCIUM (test code = 2209) 9.5 MG/DL PROTEIN, TOTAL (test code = 7.8 G/DL 2228) ALBUMIN (test code = 2201) 4.6 G/DL CALC GLOBULIN (test code = 3.2 G/DL 2240) CALC A/G RATIO (test code = 1.4 RATIO 2234) BILIRUBIN, TOTAL (test code = <0.2 MG/DL 2206) ALKALINE PHOSPHATASE (test 105 U/L code = 2204) AST (test code = 2218) 18 U/L ALT (test code = 2219) 16 U/L LIPID [id number] 00:00:00 Test Item Value Reference Range Interpretation Comments CHOLESTEROL (test code = 2210) 188 MG/DL TRIGLYCERIDES (test code = 2232) 162 MG/DL HDL CHOLESTEROL (test code = 2220) 48 MG/DL CALC LDL CHOL (test code = 2237) 108 MG/DL RISK RATIO LDL/HDL (test code = 2.24 RATIO 2238) LIPID [id number] 00:00:00 Test Item Value Reference Range Interpretation Comments CHOLESTEROL (test code = 2210) 188 MG/DL TRIGLYCERIDES (test code = 2232) 162 MG/DL HDL CHOLESTEROL (test code = 2220) 48 MG/DL CALC LDL CHOL (test code = 2237) 108 MG/DL RISK RATIO LDL/HDL (test code = 2.24 RATIO 2238) [id number] 00:00:00 Test Item Value Reference Range Interpretation Comments TSH, THIRD GENERATION (test code 1.150 UIU/ML = 2821) [id number] 00:00:00 Test Item Value Reference Range Interpretation Comments TSH, THIRD GENERATION (test code 1.150 UIU/ML = 2821) [id number] 00:00:00 Test Item Value Reference Range Interpretation Comments TSH, THIRD GENERATION (test code 1.150 UIU/ML = 2821) HEMOGLOBIN [id number] 00:00:00 Test Item Value Reference Range Interpretation Comments HEMOGLOBIN A1c (test code = 09699) 5.4 % HEMOGLOBIN [id number] 00:00:00 Test Item Value Reference Range Interpretation Comments HEMOGLOBIN A1c (test code = 32872) 5.4 % HEMOGLOBIN [id number] 00:00:00 Test Item Value Reference Range Interpretation Comments HEMOGLOBIN A1c (test code = 94753) 5.4 %"
[2023-02-11] MEDS ORDERED: NA CHLORIDE 0.9% 1,000 ML ONE (10:25)
[2023-02-11] MEDS ORDERED: PROMETHAZINE INJ 25 MG/ML AMP ONE (10:25)
[2023-02-11] MEDS ORDERED: FAMOTIDINE 20 MG/2 ML VIAL IV ONE (10:25)
[2023-02-11 10:31] LABS: Absolute Lymphocytes (CBC) 1.4 K/uL (0.7-4.9); Hematocrit 38.5 % (36.0-45.0); Lymphocytes % 21.5 % (15.3-44.8); MCV 79.7 fL (80-100); MPV 7.5 fL (7.6-11.3); RBC Red Blood Cell Count 4.84 M/uL (3.86-4.86); Specific Gravity 1.015 (1.005-1.030); Urine Bacteria <20 /HPF (<20); Urine Bilirubin NEGATIVE (Negative); Urine Blood 1+ (Negative); Urine Clarity Turbid (Clear); Urine Color Light-Yellow (Yellow); Urine Glucose NEGATIVE (Negative); Urine Mucus Slight /HPF (None Seen); Urine Protein NEGATIVE (Negative); Urine RBC <5 /HPF (None Seen); Urine Urobilinogen Normal (Normal)
[2023-02-11 10:49] LABS: Albumin 3.5 g/dL (3.4-5.0); Bilirubin Total 0.3 mg/dL (0.2-1.0); Potassium 3.3 mEq/L (3.5-5.1)
--- NOTE | 2023-02-11 10:59 | RAD REPORT ---
EXAM DESCRIPTION: CT - Abdomen Pelvis Wo Contrast - 02/11/2023 10:48 am CLINICAL HISTORY: Abdominal pain. ABD PAIN COMPARISON: Stone Protocol dated 04/05/2022 TECHNIQUE: CT imaging of the abdomen and pelvis was performed without contrast. Solid organ, bowel a nd vascular assessment is limited due to lack of IV and oral contrast. All CT scans are performed using dose optimization technique as appropriate and may include automated exposure control or mA/KV adjustment according to patient size. FINDINGS: The lower lung david are clear.Cholecystectomy clips. The liver, spleen, pancreas, adrenal glands are within normal limits for a limited non-contrast exami nation.6 mm stone inferior calyx left kidney without hydronephrosis. Right nephrectomy. No bowel obstruction, free air, free fluid or abscess. Mild sigmoid diverticulosis without diverticul itis. The appendix is normal. The osseous structures are within normal limits. IMPRESSION: 6 mm inferior left renal calculus without hydronephrosis. Evidence of prior right nephrectomy. Cholecystectomy. No acute process. A limited non-contrast examination was performed as detailed.
[2023-02-11] MEDS ORDERED: DICYCLOMINE HCL 20 MG/2 ML AMP IM ONE (11:14)
--- NOTE | 2023-02-11 11:46 | EDPHYS ---
Physician Documentation [facility] Name: Yissel Carmona Age: 47 yrs Sex: Female : 1975 Arrival Date: 02/11/2023 Time: 09:45 Bed 18 Private MD: ED Physician Arash Yang HPI: 02/11 11:46 This 47 yrs old Female presents to ER via Wheelchair with complaints of ms3 Nausea/Vomiting/Diarrhea. 11:46 47-year-old female with past medical history of migraines previous history of ms3 nephrectomy presents for abdominal pain, nausea and diarrhea that began yesterday morning. Patient rates her pain a 10/10 and located generally throughout her abdomen. Patient describes the pain as cramping. Patient denies alleviating or inciting factors. Patient denies fevers, chills.. Historical: - Allergies: 10:01 Stadol; ll1 10:01 Reglan; ll1 10:01 Toradol; ll1 10:01 Zofran; ll1 10:01 Cipro; ll1 10:01 tequin; ll1 10:01 Rocephin; ll1 10:01 tramadol; ll1 - PMHx: 10:01 Migraines; one kidney; ll1 - PSHx: 10:01 Cholecystectomy; kidney removal; ll1 - Immunization history:: Adult Immunizations up to date. - Social history:: Smoking status: Patient denies any tobacco usage or history of. ROS: 11:46 Constitutional: Negative for fever, and chills. Neck: Negative for injury, pain, and ms3 swelling, Cardiovascular: Negative for chest pain, and palpitations. Respiratory: Negative for shortness of breath, cough, wheezing, and pleuritic chest pain. 11:46 Abdomen/GI: Positive for abdominal pain, nausea, diarrhea. 11:46 All other systems are negative. ms3 Exam: 11:46 Constitutional: This is a well developed, well nourished patient who is awake, alert, ms3 and in no acute distress. Eyes: Pupils equal round and reactive to light, extra-ocular motions intact. Lids and lashes normal. Conjunctiva and sclera are non-icteric and not injected. Periorbital areas with no swelling, redness, or edema. Chest/axilla: Normal chest wall appearance and motion. Nontender with no deformity. Cardiovascular: Regular rate and rhythm with a normal S1 and S2. No gallops, murmurs, or rubs. Normal PMI, no JVD. No pulse deficits. Respiratory: Lungs have equal breath sounds bilaterally, clear to auscultation and percussion. No rales, rhonchi or wheezes noted. No increased work of breathing, no retractions or nasal flaring. Abdomen/GI: Soft, non-tender, with normal bowel sounds. No distension or tympany. No guarding or rebound. No evidence of tenderness throughout. Back: No spinal tenderness. No costovertebral tenderness. Full range of motion. Skin: Warm, dry with normal turgor. Normal color with no rashes, no lesions, and no evidence of cellulitis. MS/ Extremity: Pulses equal, no cyanosis. Neurovascular intact. Full, normal range of motion. Vital Signs: 10:02 BP 145 / 84; Pulse 94; Resp 17; Temp 98.3; Pulse Ox 99% ; Weight 90.26 kg; Height 5 ft. ll1 2 in. ; Pain 10/10; 11:22 BP 109 / 69; Pulse 91; Resp 18; Pulse Ox 99% on R/A; Pain 7/10; ld1 10:02 Body Mass Index 36.40 (90.26 kg, 157.48 cm) ll1 10:02 Pain Scale: Adult ll1 11:22 Pain Scale: Adult ld1 MDM: 10:12 Patient medically screened. ms3 11:46 Differential diagnosis: Nonspecific abd pain, gastritis, pancreatitis. Data reviewed: ms3 vital signs, nurses notes, lab test result(s), radiologic studies, and as a result, I will discharge patient. I considered the following discharge prescriptions or medication management in the emergency department Medications were administered in the Emergency Department. See MAR. Counseling: I had a detailed discussion with the patient and/or guardian regarding: the historical points, exam findings, and any diagnostic results supporting the discharge/admit diagnosis, lab results, radiology results, the need for outpatient follow up, to return to the emergency department if symptoms worsen or persist or if there are any questions or concerns that arise at home. Response to treatment: the patient's symptoms have markedly improved after treatment, and as a result, I will discharge patient. Special discussion: Based on the patient's Hx, exam, and Dx evaluation, there is no indication for emergent surgery or inpatient Tx. It is understood by the patient/guardian that if the Sx's persist or worsen they need to return immediately for re-evaluation. 02/11 10:13 Order name: CBC with Diff; Complete Time: 10:48 ms3 02/11 10:13 Order name: CMP; Complete Time: 11:03 ms3 02/11 10:13 Order name: Lipase; Complete Time: 11:03 ms3 02/11 10:13 Order name: Test, Urine; Complete Time: 10:48 ms3 02/11 10:13 Order name: Urinalysis w/ reflexes; Complete Time: 10:48 ms3 02/11 10:13 Order name: CT Abd/Pelvis - Without Contrast; Complete Time: 11:03 ms3 02/11 10:13 Order name: IV Saline Lock; Complete Time: 10:14 ms3 02/11 10:13 Order name: Labs collected and sent; Complete Time: 10:14 ms3 Administered Medications: 10:21 Drug: NS 0.9% IV 1000 ml Route: IV; Rate: 1 bolus; Site: right antecubital; ld1 10:21 Drug: Famotidine IVP 20 mg Route: IVP; Site: right antecubital; ld1 10:21 Drug: Promethazine IM 12.5 mg Route: IM; Site: right deltoid; ld1 11:07 Drug: Dicyclomine IM 20 mg Route: IM; Site: left deltoid; ld1 Disposition Summary: 02/11/23 11:46 Discharge Ordered Location: Home ms3 Condition: Stable ms3 Diagnosis - Abdominal pain, Generalized ms3 - Transaminitis ms3 Followup: ms3 - With: Nikita De Luna MD - When: 2 - 3 days - Reason: Recheck today's complaints Discharge Instructions: - Discharge Summary Sheet ms3 - Abdominal Pain, Adult ms3 - Liver Function Tests ms3 Forms: - Medication Reconciliation Form ms3 - Thank You Letter ms3 - Antibiotic Education ms3 - Prescription Opioid Use ms3 - Patient Portal Instructions ms3 Prescriptions: - Pepcid 20 mg Oral Tablet - take 1 tablet by ORAL route every 12 hours for 5 days; 10 tablet; Refills: 0, ms3 Product Selection Permitted Signatures: Dispatcher [employer] Arlette Chen RN RN ll1 Arash Yang, DO ms3 Shireen Yang RN RN ld1 Corrections: (The following items were deleted from the chart) 11:48 11:46 47-year-old female with past medical history of migraines previous history of ms3 nephrectomy presents for abdominal pain that began yesterday morning. Patient rates her pain a 10/10 and located generally throughout her abdomen. Patient describes the pain as cramping. Patient denies alleviating or inciting factors. Patient denies fevers, chills.. ms3
--- NOTE | 2023-02-11 11:46 | ER ---
Nurse's Notes [facility] Name: Yissel Carmona Age: 47 yrs Sex: Female : 1975 Arrival Date: 02/11/2023 Time: 09:45 Bed 18 Private MD: Diagnosis: Abdominal pain, Generalized;Transaminitis Presentation: 02/11 10:02 Chief complaint: Patient states: Upper abdominal pain with N/V/D since yesterday ll1 morning. No fever. Coronavirus screen: Client denies travel out of the [place] in the last 14 days. diarrhea, nausea, vomiting. Client presents with at least one sign or symptom that may indicate coronavirus-19. Standard/surgical mask placed on the client. Ebola Screen: Patient denies travel to an Ebola-affected area in the 21 days before illness onset. Initial Sepsis Screen: Does the patient meet any 2 criteria? No. Patient's initial sepsis screen is negative. Does the patient have a suspected source of infection? Yes: Acute abdominal pain. Risk Assessment: Do you want to hurt yourself or someone else? Patient reports no desire to harm self or others. Onset of symptoms was February 10, 2023. 10:02 Method Of Arrival: Wheelchair ll1 10:02 Acuity: NEVAEH 3 ll1 Triage Assessment: 10:03 General: Appears uncomfortable, Behavior is calm, cooperative, appropriate for age. ll1 Pain: Complains of pain in epigastric area Quality of pain is described as aching, Pain began 1 day ago. Neuro: No deficits noted. Cardiovascular: No deficits noted. GI: Reports upper abdominal pain, cramping, diarrhea, nausea, vomiting. Historical: - Allergies: 10:01 Stadol; ll1 10:01 Reglan; ll1 10:01 Toradol; ll1 10:01 Zofran; ll1 10:01 Cipro; ll1 10:01 tequin; ll1 10:01 Rocephin; ll1 10:01 tramadol; ll1 - PMHx: 10:01 Migraines; one kidney; ll1 - PSHx: 10:01 Cholecystectomy; kidney removal; ll1 - Immunization history:: Adult Immunizations up to date. - Social history:: Smoking status: Patient denies any tobacco usage or history of. Screenin:02 [facility] Fall Risk Assessment (Adult) History of falling in the last 3 months, ld1 including since admission No falls in past 3 months (0 pts). Abuse screen: Denies threats or abuse. Denies injuries from another. Nutritional screening: No deficits noted. Tuberculosis screening: No symptoms or risk factors identified. Assessment: 10:02 General: Appears in no apparent distress. comfortable, Behavior is calm, cooperative, ld1 appropriate for age. Pain: Complains of pain in epigastric area, right upper quadrant and left upper quadrant Pain does not radiate. Pain currently is 8 out of 10 on a pain scale. Quality of pain is described as throbbing, Pain began 2-3 days ago. Is continuous, Aggravated by vomiting. Neuro: Level of Consciousness is awake, alert, obeys commands, Oriented to person, place, time, situation. Cardiovascular: Capillary refill < 3 seconds Patient's skin is warm and dry. Respiratory: Airway is patent Respiratory effort is even, unlabored. GI: Abdomen is round non-distended, Reports diarrhea, nausea, vomiting. : No signs and/or symptoms were reported regarding the genitourinary system. EENT: No signs and/or symptoms were reported regarding the EENT system. Derm: No signs and/or symptoms reported regarding the dermatologic system. Musculoskeletal: No signs and/or symptoms reported regarding the musculoskeletal system. Vital Signs: 10:02 BP 145 / 84; Pulse 94; Resp 17; Temp 98.3; Pulse Ox 99% ; Weight 90.26 kg; Height 5 ft. ll1 2 in. ; Pain 10/10; 11:22 BP 109 / 69; Pulse 91; Resp 18; Pulse Ox 99% on R/A; Pain 7/10; ld1 10:02 Body Mass Index 36.40 (90.26 kg, 157.48 cm) ll1 10:02 Pain Scale: Adult ll1 11:22 Pain Scale: Adult ld1 ED Course: 09:48 Patient arrived in ED. kj1 09:51 Arash Yang DO is Attending Physician. ms3 10:01 Arm band placed on Patient placed in an exam room, on a stretcher. ll1 10:02 Shireen Yang, TORRES is Primary Nurse. ld1 10:02 Patient has correct armband on for positive identification. Placed in gown. Bed in low ld1 position. Call light in reach. Side rails up X2. balance truing inspector on. Pulse ox on. NIBP on. Door closed. Noise minimized. Warm blanket given. 10:02 No provider procedures requiring assistance completed. ld1 10:03 Triage completed. ll1 10:09 Inserted saline lock: 20 gauge in right antecubital area, using aseptic technique. ld1 Blood collected. 10:14 Urinalysis w/ reflexes Sent. ld1 10:14 Test, Urine Sent. ld1 10:14 CBC with Diff Sent. ld1 10:14 CMP Sent. ld1 10:14 Lipase Sent. ld1 10:21 Urinalysis w/ reflexes Sent. ld1 10:21 Test, Urine Sent. ld1 10:50 CT Abd/Pelvis - Without Contrast In Process Unspecified. EDMS 11:44 Nikita De Luna MD is Referral Physician. ms3 12:22 IV discontinued, intact, bleeding controlled, No redness/swelling at site. ld1 Administered Medications: 10:21 Drug: NS 0.9% IV 1000 ml Route: IV; Rate: 1 bolus; Site: right antecubital; ld1 10:21 Drug: Famotidine IVP 20 mg Route: IVP; Site: right antecubital; ld1 10:21 Drug: Promethazine IM 12.5 mg Route: IM; Site: right deltoid; ld1 11:07 Drug: Dicyclomine IM 20 mg Route: IM; Site: left deltoid; ld1 Medication: 12:22 VIS not applicable for this client. ld1 Outcome: 11:46 Discharge ordered by . ms3 12:22 Discharged to home ambulatory. ld1 12:22 Condition: stable 12:22 Discharge instructions given to patient, Instructed on discharge instructions, follow up and referral plans. medication usage, Demonstrated understanding of instructions, follow-up care, medications, Prescriptions given X 1. 12:23 Patient left the ED. ld1 Signatures: Dispatcher [employer] EDOK Helen Calhoun kj1 Arlette Persaud, RN RN ll1 Arash Yang DO DO ms3 Shireen Yang RN RN ld1
[2023-02-11 12:31] VITALS: TEMP 98.3; O2SAT 99
[2023-02-11 12:37] VITALS: BP 109/69
== END 2023-02-11 12:23 | disposition home or self-care (01) ==
LOC: ER 09:45
DX: R10.84 Generalized abdominal pain (principal); R74.01 Elevation of levels of liver transaminase levels; Z88.1 Allergy status to other antibiotic agents; Z88.3 Allergy status to other anti-infective agents; Z88.5 Allergy status to narcotic agent; Z88.8 Allergy status to other drugs, medicaments and biological substances
CPT/HCPCS: 85025; 81001; 36415; 81025; 83690; 80053; 74176; 96372; 96374; 99285; J2550; J0500; J7030

== ENCOUNTER 2023-05-09 08:00 | Emergency (ER) | payer SELFPAY ==
--- OUTSIDE RECORDS SUMMARY | 2023-05-09 08:08 | XMS REPORT | Continuity of Care Document ---
:[address] [facility] t Address [address] [facility] [address] [place] [address] Care Team Providers Name Role Phone Pcp, Patient Does Not Have A Primary Care Physician +[id number] Doctor Unassigned, Preemption Attending Clinician Unavailable SUPRIYA PFEIFFER Attending Clinician Unavailable Supriya Pfeiffer DO Attending Clinician DEBBIE BOYCE Attending Clinician Unavailable Debbie Boyce MD Attending Clinician MARCIO AUGUSTINE Attending Clinician Unavailable Marcio Augustine DO Attending Clinician Gagandeep Izaguirre Attending Clinician Gagandeep RUTHERFORD Attending Clinician Unavailable Rafael Syed Attending Clinician DEBBIE BOYCE Admitting Clinician Unavailable MARCIO AUGUSTINE Admitting Clinician Unavailable Payers Payer Name Policy Type Policy Number Effective Date Expiration Date [facility] [id number] 2018 [facility] MEDICAID 00:00:00 Problems Condition Condition Condition Status [...] Active 2021-07 Univers 2-30 ity of 00:00: [place] 00 Medical [place] Urinary Urinary Disease Active 2021-07 Univers frequency frequency 2-30 ity of 00:00: [place] 00 Medical [place] Kidney Kidney Disease Active 2021-07 Univers stone stone 2-30 ity of 00:00: [place] 00 Medical [place] Acute Acute Disease Active 2021-07 Univers intractabl intractabl 2-30 it y of e e 00:00: [place] tension-ty tension-ty 00 Me dical pe pe Branch headache headache No known No known Disease Unive rs active active ity of problems problems [facility] Allergies, Adverse Reactions, Alerts Allergy Allergy Status Severity Reaction(s) Onset Inactive Treating Comm ents Source Name Type Date Date Clinician METOCLOP DRUG Active Hives 2021-07 Univers RAMIDE INGREDI 0-16 ity of 00:00: [place] 00 [facility] GATIFLOX DRUG Active Unknown-Cmnt 2021-07 Un davin ACIN INGREDI 0-16 ity of 00:00: [place] 00 [facility] [place] CEFTRIAX DRUG Active Rash 2021-07 Univers ONE INGREDI 0-16 ity of 00:00: [place] 00 Medical [place] Metoclop Propensi Active Hives 2021-07 Univer s [...] Start Date Stop Date Quantity Comments Source Gender identity [facility] [place] [facility] y [facility] [place] Sexual orientation [facility] [place] Exposure to 2022-08-21 2022-08-31 Not sure [facility] SARS-CoV-2 (event) 00:00:00 10:48:00 Medica l Branch Sex Assigned At [birth year] [facility] 00:00:00 00:00:00 Medical Branch Smoking Status Start Date Stop Date Source Tobacco smoking consumption [facility] Branch Medications Ordered Filled Start Stop Current Ordering Indication Dosage Frequency Signature Comments Components Source Medication Medication Date Date Medication? Clinician (SIG) Name Name morpHINE (4 2021-07- No 4mg 4 mg, Slow Univers mg/mL) 2-30 12-30 IV Push, ity of injection 4 20:45: 21:06 ONCE, 1 [place] mg 00 :00 dose, On Medical Fri Branch 07/15/22 at 1445, STAT iopamidol 2021-07- No [id number] 84mL 84 mL, Univers (ISOVUE 30 -30 Intravenou ity o f 370-500 mL) 20:45: 19:46 s, ONCE, 1 [place] injection 00 :00 dose, On Medica l 84 mL Fri Branch 07/15/22 at 1445, Routine butalbital- 2021-07- No 1{tbl} 1 tablet, Univers acetaminoph 12-30 Oral, ONCE i ty of en-caff 19:15: 19:30 NOW, 1 [place] (ESGIC) 00 :00 dose, On Medical 50-325-40 Fri Branch mg tablet 1 07/15/22 tablet at 1315, Routine diphenhydrA 2021-07 No 25mg 25 mg, Uni vers MINE 2-30 12-30 Slow IV ity of (BENADRYL) 18:30: 19:31 Push, [place] injection 00 :00 ONCE, 1 Medical 25 mg dose, On Branch 07/15/22 at 1230, STAT proMETHazin 2021-07 No 12.5mg 12.5 mg, Univers e 230 12-30 IV ity of (PHENERGAN) 18:30: 19:34 Piggyback, [place] 12.5 mg in 00 :00 ONCE, 1 Medica l NaCl 0.9% dose, On Branch (NS) 50 mL Fri IV 07/15/22 piggyback at 1230, LISE NaCl 0.9% 2021-07 No 1000mL at 999 Uni vers (NS) bolus 2-30 12-30 mL/hr, ity of infusion 18:30: 22:03 1,000 mL, Jose Luis as 1,000 mL 00 :00 IV Medical Infusion, Branch ONCE, 1 dose, On 07/15/22 at 1230, STAT proMETHazin 2021-07 Yes [id number] 25mg Take 1 Univers e 25 mg 2-30 tablet by ity of tablet 00:00: mouth [place] 00 every 6 Medical (six) Branch hours as needed for Nausea and Vomiting (N/V) for up to 10 doses. proMETHazin 2021-07 Yes [id number] 25mg Take 1 Univers e 25 mg 2-30 tablet by ity of tablet 00:00: mouth [place] 00 every 6 Medical (six) Branch hours as needed for Nausea and Vomiting (N/V) for up to 10 doses. proMETHazin 2021-07 Yes [id number] 25mg Take 1 Univers e 25 mg 2-30 tablet by ity of tablet 00:00: mouth [place] 00 every 6 Medical (six) Branch hours as needed for Nausea and Vomiting (N/V) for up to 10 doses. Nitrofurant 2021-07- No [id number] 100mg Take 1 Univers oin&Nit. 2-30 -07 capsule by ity of Macrocryst 00:00: 05:59 [place] (MACROBID) 00 :00 the Medical 100 mg morning Branch capsule and 1 capsule in the evening. Do all this for 7 days. cyclobenzap 2021-07- No [id number] 10mg Take 2 Univers rine 5 mg [...] at 2000, Until Discontinu ed, Routine ketorolac 2021-07 No 15mg 15 mg, Unive rs (TORADOL) [...] Branch tablet 05/01/22 at 1430, Routine proMETHazin 2021-07 No 12.5mg 12.5 mg, Univers e 0-16 10-16 IV ity of (PHENERGAN) 18:30: 18:29 Piggyback, [place] 12.5 mg in 00 :00 ONCE, 1 Medica l NaCl 0.9% dose, On Branch (NS) 50 mL Sun IV 05/01/22 piggyback at 1330, LISE sulfamethox 2021-07 Yes [id number] 1{tbl} Take 1 Univers azole-trime 0-16 tablet by ity of thoprim 00:00: mouth [place] 800-160 mg 00 every 12 Medic al per tablet (twelve) Branc h hours. proMETHazin 2021-07 Yes [id number] 25mg Take 1 Univers e 25 mg 0-16 tablet by ity of tablet 00:00: mouth [place] 00 every 6 Medical (six) Branch hours as needed for Nausea and Vomiting (N/V). oxybutynin 2021-07 Yes [id number] 5mg Take 1 U nivers XL 5 mg 24 0-16 tablet by ity of hr tablet 00:00: [place] the Medical morning. Branch phenazopyri 2021-07 Yes [id number] 200mg Take 1 Univers dine 200 mg 0-16 tablet by ity of tablet 00:00: mouth in [place] the Medical morning Branch and 1 tablet at noon and 1 tablet in the evening. sulfamethox 2021-07 Yes [id number] 1{tbl} Take 1 Univers azole-trime 0-16 tablet by ity of thoprim 00:00: mouth [place] 800-160 mg 00 every 12 Medic al per tablet (twelve) Branc h hours. proMETHazin 2021-07 Yes [id number] 25mg Take 1 Univers e 25 mg 0-16 tablet by ity of tablet 00:00: mouth [place] 00 every 6 Medical (six) Branch hours as needed for Nausea and Vomiting (N/V). oxybutynin 2021-07 Yes [id number] 5mg Take 1 U nivers XL 5 mg 24 0-16 tablet by ity of hr tablet 00:00: [place] the Medical morning. Branch phenazopyri 2021-07 Yes [id number] 200mg Take 1 Univers dine 200 mg 0-16 tablet by ity of tablet 00:00: mouth in [place] 00 the Medical morning Branch and 1 tablet at noon and 1 tablet in the evening. sulfamethox 2021-07 Yes [id number] 1{tbl} Take 1 Univers azole-trime 0-16 tablet by ity of thoprim 00:00: mouth [place] 800-160 mg 00 every 12 Medic al per tablet (twelve) Branc h hours. proMETHazin 2021-07 Yes [id number] 25mg Take 1 Univers e 25 mg 0-16 tablet by ity of tablet 00:00: mouth [place] 00 every 6 Medical (six) Branch hours as needed for Nausea and Vomiting (N/V). oxybutynin 2021-07 Yes [id number] 5mg Take 1 U nivers XL 5 mg 24 0-16 tablet by ity of hr tablet 00:00: [facility] Branch phenazopyri 2021-07 Yes [id number] 200mg Take 1 Univers dine 200 mg 0-16 tablet by ity of tablet 00:00: mouth in [place] the Medical morning Branch and 1 tablet at noon and 1 tablet in the evening. sulfamethox 2021-07 Yes [id number] 1{tbl} Take 1 Univers azole-trime 0-16 tablet by ity of thoprim 00:00: mouth [place] 800-160 mg 00 every 12 Medic al per tablet (twelve) Branc h hours. proMETHazin 2021-07 Yes [id number] 25mg Take 1 Univers e 25 mg 0-16 tablet by ity of tablet 00:00: mouth [place] 00 every 6 Medical (six) Branch hours as needed for Nausea and Vomiting (N/V). oxybutynin 2021-07 Yes [id number] 5mg Take 1 U nivers XL 5 mg 24 0-16 tablet by ity of hr tablet 00:00: mouth in [facility] 00 the Medical morning. Branch phenazopyri 2021-07 Yes [id number] 200mg Take 1 Univers dine 200 mg 0-16 tablet by ity of tablet 00:00: mouth in [place] the Medical morning Branch and 1 tablet at noon and 1 tablet in the evening. TAKE 1 2021- No TABLET - EVERY 6 TO 00:00: 8 HOURS 00 NEEDED NAUSEA. TAKE 1 2021- No TABLET - EVERY 6 TO 00:00: 8 HOURS 00 NEEDED NAUSEA. TAKE 1 2021-0 No TABLET BY 03-18 MOUTH EVERY 00:00: 8 HOURS 00 NEEDED FOR MUSCLE SPASMS TAKE 1 2022-0 No TABLET BY 9-02 MOUTH EVERY 00:00: 8 HOURS 00 NEEDED FOR MUSCLE SPASMS TAKE 10 ML 2022-0 No [id number] EVERY 6 TO 8-15 8 HOURS 00:00: NEEDED FOR 00 COUGH TAKE 10 ML 2022-0 No [id number] EVERY 6 TO 8-15 8 HOURS 00:00: NEEDED FOR 00 COUGH TAKE 10 ML 2022-0 No [id number] EVERY 6 TO 8-15 8 HOURS 00:00: NEEDED FOR 00 COUGH TAKE 10 ML 2022-0 No [id number] EVERY 6 TO 8-15 8 HOURS 00:00: NEEDED FOR 00 COUGH TAKE 10 ML 2022-0 No [id number] EVERY 6 TO 8-15 8 HOURS 00:00: NEEDED FOR 00 COUGH TAKE 10 ML 2022-0 No [id number] EVERY 6 TO 8-15 8 HOURS 00:00: NEEDED FOR 00 COUGH Dose 2022-0 No Unknown 5-10 00:00: 00 [...] 800 mg 2-08 tablet 00:00: 00 topiramate 2021-1 No 1mg 200 mg 1-30 tablet 00:00: 00 amitriptyli 1-1 No 1mg ne 100 mg 1-30 tablet 00:00: 00 Dose 2021-1 No Unknown 1-30 00:00: 00 topiramate 2021-1 No 1mg 200 mg 1-30 tablet 00:00: 00 amitriptyli 2021-1 No 1mg ne 100 mg 1-30 tablet 00:00: 00 Dose 2021-1 No Unknown 1-30 00:00: 00 topiramate 2021-1 No 1mg 200 mg 1-30 tablet 00:00: 00 amitriptyli 2021-1 No 1mg ne 100 mg 1-30 tablet 00:00: 00 Dose 2021-1 No Unknown 1-30 00:00: 00 rizatriptan 2021-0 No 1mg 5 mg tablet 03-05 00:00: 00 rizatriptan 1-0 No 1mg 5 mg tablet 03-05 00:00: 00 rizatriptan 1-0 No 1mg 5 mg tablet 03-05 00:00: 00 topiramate 1-0 No 1mg 200 mg 8-19 tablet 00:00: 00 amitriptyli 1-0 No 1mg ne 100 mg 8-19 tablet 00:00: 00 rizatriptan 1-0 No 1mg 5 mg tablet 03-04 00:00: 00 promethazin 1-0 No 1mg e 25 mg 8-19 tablet 00:00: 00 topiramate 1-0 No 1mg 200 mg 8-19 tablet 00:00: 00 amitriptyli 1-0 No 1mg ne 100 mg 8-19 tablet 00:00: 00 rizatriptan 1-0 No 1mg 5 mg tablet 03-04 00:00: 00 promethazin 1-0 No 1mg e 25 mg 8-19 tablet 00:00: 00 topiramate 1-0 No 1mg 200 mg 8-19 tablet 00:00: 00 amitriptyli 1-0 No 1mg ne 100 mg 8-19 tablet 00:00: 00 rizatriptan 1-0 No 1mg 5 mg tablet 03-04 00:00: 00 promethazin 1-0 No 1mg e 25 mg 8-19 tablet 00:00: 00 proMETHazin 1-0 2021- No 25mg 25 mg, Uni vers e 01-04 Oral, ity of (PHENERGAN) 20:30: 19:35 ONCE, 1 [place] tablet 25 00 :00 dose, Mon Medic al mg 01/04/21 at Branch 1530, LISE cephALEXin 2020-0 2020- No 500mg 500 mg, Un davin (KEFLEX) 01-04 Oral, ity of capsule 500 20:30: 19:35 ONCE, 1 [place] mg 00 :00 dose, Mon Medical 01/04/21 at Branch 1530, LISE
Re ason for Anti-Infec tive: Documented Infection< br>Documen tomasa Infection Site: Urine
D uration of Therapy: 10 days NaCl 0.9% 2020- No 1000mL at 999 Uni vers (NS) bolus 01-04 06-21 mL/hr, ity of infusion 19:15: 19:35 1,000 mL, Jose Luis as 1,000 mL 00 :00 IV Medical Infusion, Branch ONCE, 1 dose, 01/04/21 at 1415, STAT proMETHazin Yes [id number] 25mg Take 1 Univers e 25 mg 6-21 tablet by ity of tablet 00:00: mouth [place] 00 every 6 Medical (six) Branch hours as needed for Nausea and Vomiting (N/V). proMETHazin 2021- No [id number] 25mg Take 1 Univers e 25 mg 6-21 10-16 tablet by ity of tablet 00:00: 00:00 mouth [place] 00 :00 every 6 Medical (six) Branch hours as needed for Nausea and Vomiting (N/V). cephALEXin 2020- No [id number] 500mg Take 1 Univers (KEFLEX) 01-04 07-02 capsule by ity of 500 mg 00:00: 04:59 mouth 3 [place] capsule 00 :00 (three) Medical times Branch daily for 10 days. Vitamin D3 No 1(1,000 25 mcg 5-28 unit) (1,000 00:00: unit) 00 capsule Vitamin D3 0 No 1(1,000 25 mcg 5-28 unit) (1,000 00:00: unit) 00 capsule Vitamin D3 No 1(1,000 25 mcg 5-28 unit) (1,000 00:00: unit) 00 capsule cetirizine 0 No 1mg 10 mg 5-25 tablet 00:00: 00 cetirizine 2020-0 No 1mg 10 mg 5-25 tablet 00:00: 00 cetirizine 2020-0 No 1mg 10 mg 5-25 tablet 00:00: 00 topiramate 2020-0 No 1mg 200 mg 5-13 tablet 00:00: 00 amitriptyli 2020-0 No 1mg ne 100 mg 5-13 tablet 00:00: 00 topiramate 2020-0 No 1mg 200 mg 5-13 tablet 00:00: 00 promethazin 2021-0 No 1mg e 25 mg 5-13 tablet 00:00: 00 amitriptyli 1-0 No 1mg ne 100 mg 5-13 tablet 00:00: 00 promethazin 1-0 No 1mg e 25 mg 5-13 tablet 00:00: 00 topiramate 2021-0 No 1mg 200 mg 5-13 tablet 00:00: [...] darlin palmer 00 tended release 24 hr amitriptyli 1-0 No 1mg ne 100 mg 2-05 tablet 00:00: 00 topiramate 1-0 No 1mg XR 150 mg 2-05 capsule 00:00: darlin palmer 00 tended release 24 hr amitriptyli 1-0 No 1mg ne 100 mg 2-05 tablet 00:00: 00 topiramate 1-0 No 1mg XR 150 mg 2-05 capsule 00:00: darlin palmer tended release 24 hr metronidazo 2019-1 No 1mg le 500 mg 2-14 tablet 00:00: 00 metronidazo 2020-1 No 1mg le 500 mg 2-14 tablet 00:00: 00 metronidazo 2020-1 No 1mg le 500 mg 2-14 tablet 00:00: 00 topiramate 2020-1 No 1mg 50 mg 2-10 tablet 00:00: 00 amitriptyli 2020-1 No 1mg ne 100 mg 2-10 tablet 00:00: 00 topiramate 2020-1 No 1mg 50 mg 2-10 tablet 00:00: 00 amitriptyli 2019-1 No 1mg ne 100 mg 2-10 tablet 00:00: 00 topiramate 2020-1 No 1mg 50 mg 2-10 tablet 00:00: 00 amitriptyli 2020-1 No 1mg ne 100 mg 2-10 tablet [...] 7-23 capsule,del 00:00: ayed 00 release proMETHazin 2020-0 2020- No 12.5mg 12.5 mg, Univers e 02-02 IV ity of (PHENERGAN) 00:45: 23:54 Piggyback, [place] 12.5 mg in 00 :00 ONCE, 1 Medica l NaCl 0.9% dose, Sun Branc h (NS) 50 mL 02/02/20 at piggyback 1945, 50 mL NaCl 0.9% 2019-0 2020- No 1000mL at 999 Uni vers (NS) bolus 7-19 07-19 mL/hr, ity of infusion 22:30: 23:48 1,000 mL, Jose Luis as 1,000 mL 00 :00 IV Medical Infusion, Branch ONCE, 1 dose, 02/02/20 at 1730, STAT azithromyci 2020-0 Yes [id number] 250mg Take 1 Univers n 250 mg 7-19 [id number] tablet by ity of tablet 00:00: mouth [place] 00 daily. Medical Take 500 Branch mg day 1, then 250 mg days 2 to 5. benzonatate 2020-0 Yes [id number] 100mg Take 1 Univers 100 mg 7-19 [id number] capsule by ity of capsule 00:00: mouth 3 [place] 00 (three) Medical times Branch daily as needed for Cough. azithromyci 2020-0 Yes [id number] 250mg Take 1 Univers n 250 mg 7-19 tablet by ity of tablet 00:00: mouth [place] 00 daily. Medical Take 500 Branch mg day 1, then 250 mg days 2 to 5. azithromyci 2020-0 Yes [id number] 250mg Take 1 Univers n 250 mg 7-19 [id number] tablet by ity of tablet 00:00: mouth [place] 00 daily. Medical Take 500 Branch mg day 1, then 250 mg days 2 to 5. benzonatate 2020-0 Yes [id number] 100mg Take 1 Univers 100 mg 7-19 [id number] capsule by ity of capsule 00:00: mouth 3 [place] 00 (three) Medical times Branch daily as needed for Cough. benzonatate 2020-0 Yes [id number] 100mg Take 1 Univers 100 mg 7-19 capsule by ity of capsule 00:00: mouth 3 [place] 00 (three) Medical times Branch daily as needed for Cough. proMETHazin 2020-0 Yes [id number] 25mg Take 1 Univers e 25 mg 7-19 tablet by ity of tablet 00:00: mouth [place] 00 every 4 Medical (four) Branch hours as needed for Nausea and Vomiting (N/V). azithromyci 2020-0 Yes [id number] 250mg Take 1 Univers n 250 mg 7-19 [id number] tablet by ity of tablet 00:00: mouth [place] 00 daily. Medical Take 500 Branch mg day 1, then 250 mg days 2 to 5. benzonatate 2020-0 Yes [id number] 100mg Take 1 Univers 100 mg 7-19 [id number] capsule by ity of capsule 00:00: mouth 3 (three) Medical times Branch daily as needed for Cough. azithromyci 2020-0 Yes [id number] 250mg Take 1 Univers n 250 mg 7-19 [id number] tablet by ity of tablet 00:00: mouth [place] 00 daily. Medical Take 500 Branch mg day 1, then 250 mg days 2 to 5. benzonatate 2020-0 Yes [id number] 100mg Take 1 Univers 100 mg 7-19 [id number] capsule by ity of capsule 00:00: mouth 3 00 (three) Medical times Branch daily as needed for Cough. azithromyci 2020-0 Yes [id number] 250mg Take 1 Univers n 250 mg 7-19 [id number] tablet by ity of tablet 00:00: mouth [place] 00 daily. Medical Take 500 Branch mg day 1, then 250 mg days 2 to 5. benzonatate 2020-0 Yes [id number] 100mg Take 1 Univers 100 mg 7-19 [id number] capsule by ity of capsule 00:00: mouth 3 (three) Medical times Branch daily as needed for Cough. azithromyci 2020-0 Yes [id number] 250mg Take 1 Univers n 250 mg 7-19 [id number] tablet by ity of tablet 00:00: mouth [place] 00 daily. Medical Take 500 Branch mg day 1, then 250 mg days 2 to 5. benzonatate 2020-0 Yes [id number] 100mg Take 1 Univers 100 mg 7-19 [id number] capsule by ity of capsule 00:00: mouth 3 (three) Medical times Branch daily as needed for Cough. proMETHazin 2020-0 Yes [id number] 25mg Take 1 Univers e 25 mg 7-19 [id number] tablet by ity of tablet 00:00: mouth [place] 00 every 4 Medical (four) Branch hours as needed for Nausea and Vomiting (N/V). azithromyci 2020-0 Yes [id number] 250mg Take 1 Univers n 250 mg 7-19 [id number] tablet by ity of tablet 00:00: mouth [place] 00 daily. Medical Take 500 Branch mg day 1, then 250 mg days 2 to 5. benzonatate 2020-0 Yes [id number] 100mg Take 1 Univers 100 mg 02-01 [id number] capsule by ity of capsule 00:00: mouth 3 [place] 00 (three) Medical times Branch daily as needed for Cough. proMETHazin 2020-0 2020- No [id number] 25mg Take 1 Univers e 25 mg 02-01 [id number] tablet by ity of tablet 00:00: 00:00 [...] ne 100 mg 1-16 tablet 00:00: 00 Vital Signs Vital Name Observation Time Observation Value Comments Source Systolic blood 2022-08-31 16:50:00 125 mm[Hg] Univer sity [facility] [place] Diastolic blood 2022-08-31 16:50:00 90 mm[facility]Hg] [facility] 2022-08-31 16:50:00 118 /min [facility] Body temperature 2022-08-31 16:50:00 36.83 Carmen [facility] [place] [facility] Respiratory rate 2022-08-31 16:50:00 20 /min Univ [facility] [place] [facility] Body weight 2022-08-31 16:50:00 90.719 kg [facility] [place] [facility] BMI 2022-08-31 16:50:00 36.58 kg/m2 Universi ty [facility] [place] [facility] Oxygen saturation in 2022-08-31 16:50:00 99 /min University of Arterial blood by [place] Medi laya Pulse oximetry Branch Systolic blood 2022-07-15 22:04:07 111 mm[Hg] Univer sity of pressure [place] [facility] Diastolic blood 2022-07-15 22:04:07 92 mm[Hg] Unive rsity of pressure [place] [facility] Heart rate 2022-07-15 22:04:07 88 /min [facility] [place] [facility] Respiratory rate 2022-07-15 22:04:07 16 /min Univ [facility] [place] [facility] Oxygen saturation in 2022-07-15 22:04:07 100 /min University of Arterial blood by [facility] laya Pulse oximetry Branch Body temperature 2022-07-15 17:30:00 [...] 2022-05-01 19:30:43 18 /min Univ [facility] [place] [facility] Oxygen saturation in 2022-05-01 19:30:43 100 /min University of Arterial blood by [place] Medi laya Pulse oximetry Branch Body weight 2022-05-01 17:38:00 87.544 kg [facility] [place] [facility] BMI 2022-05-01 17:38:00 35.30 kg/m2 [facility] [place] [facility] Systolic blood 2021-01-04 19:00:00 109 mm[Hg] Univer sity of pressure [place] [facility] Diastolic blood 2021-01-04 19:00:00 67 mm[Hg] Unive rsity of pressure [place] [facility] Heart rate 2021-01-04 19:00:00 88 /min [facility]i ty [facility] [place] [facility] Respiratory rate 2021-01-04 19:00:00 19 /min Univ [facility] [place] [facility] Oxygen saturation in 2021-01-04 19:00:00 100 /min University of Arterial blood by [place] [employer] laya Pulse oximetry Branch Body temperature 2021-01-04 17:31:00 37.17 Carmen Univ [facility] [place] [facility] Body weight 2021-01-04 17:31:00 87.544 kg [facility] [place] [facility] BMI 2021-01-04 17:31:00 35.30 kg/m2 [facility] [place] [facility] Systolic blood 2020-02-03 00:13:53 134 mm[Hg] Univer sity of pressure [place] [facility] Diastolic blood 2020-02-03 00:13:53 89 mm[Hg] Unive rsity of pressure [place] [facility] Heart rate 2020-02-03 00:13:53 101 /min [facility] [place] [facility] Respiratory rate 2020-02-03 00:13:53 20 /min Univ [facility] [place] [facility] Oxygen saturation in 2020-02-03 00:13:53 97 /min University of Arterial blood by [facility] laya Pulse oximetry Branch Body temperature 2020-02-02 18:46:00 37.83 Carmen Univ [facility] [place] [facility] Body weight 2020-02-02 18:46:00 84.823 kg [facility] [place] [facility] BMI 2020-02-02 18:46:00 34.20 kg/m2 [facility] [place] [facility] Body height 2020-02-02 18:45:00 157.5 cm [facility] [place] [facility] Systolic blood 2020-02-03 00:13:53 134 mm[Hg] Univer sity of pressure [place] [facility] Diastolic blood 2020-02-03 00:13:53 89 mm[Hg] Unive rsity of pressure [place] [facility] Heart rate 2020-02-03 00:13:53 101 /min [facility] Respiratory rate 2020-02-03 00:13:53 20 /min [facility] Oxygen saturation in 2020-02-03 00:13:53 97 /min [facility] Arterial blood by [facility] [place] Pulse oximetry Branch Body temperature 2020-02-02 18:46:00 37.83 Carmen [facility] weight 2020-02-02 18:46:00 84.823 kg [facility] BMI 2020-02-02 18:46:00 34.20 kg/m2 [facility] Body height 2020-02-02 18:45:00 157.5 cm [facility] BP Systolic 2022-04-14 09:30:00 100 mm[Hg] BP [...] Procedure Date / Time Performed Performing Clinician [facility] e REFERRAL- 2023-02-17 05:01:00 Doctor Unassigned, No [facility] REQUEST/RESPONSE Name Medical Branch CONSENT/REFUSAL FOR 2022-08-31 16:36:06 [facility] Branch TREATMENT CT ABDOMEN PELVIS W 2022-07-15 19:52:36 Debbie Boyce [facility] CONTRAST [facility] Branch COMP. METABOLIC PANEL 2022-07-15 19:34:00 Debbie Boyce [facility] ([id number]) [facility] CBC WITH DIFF 2022-07-15 19:34:00 Debbie Boyce [facility] URINALYSIS 2022-07-15 19:34:00 Debbie Boyce [facility] POCT TEST 2022-07-15 19:34:00 Debbie Boyce [facility] CONSENT/REFUSAL FOR 2022-07-15 17:04:45 [facility] Medical Branch TREATMENT CT ABDOMEN PELVIS WO 2022-05-01 18:06:33 Marcio Augustine [facility] CONTRAST Medical Branch COMP. METABOLIC PANEL 2022-05-01 17:58:00 Marcio Augustine [facility] ([id number]) Medical Branch CBC WITH DIFF 2022-05-01 17:58:00 Marcio Augustine o f [facility] URINALYSIS 2022-05-01 17:41:00 Marcio Augustine Marlin o [facility] NOTICE OF PRIVACY 2022-05-01 17:31:57 Doctor Unassigned, No Univ [facility] Name Medical Branch CONSENT/REFUSAL FOR 2022-05-01 17:28:36 Doctor Unassigned, No [facility] [place] DIAGNOSIS AND Name Medical Branch TREATMENT LIPASE 2021-01-04 17:41:00 Gagandeep Rutherford Marlin o [facility] COMP. METABOLIC PANEL 2021-01-04 17:41:00 Gagandeep Rutherford [facility] ([id number]) Medical Branch CBC WITH DIFF 2021-01-04 17:41:00 Gagandeep Rutherford Rosangela Marlin o [facility] URINALYSIS 2021-01-04 17:41:00 Gagandeep Rutherford Rosangela [facility] POCT TEST 2021-01-04 17:41:00 Gagandeep Rutherford [facility] NOTICE OF PRIVACY 2021-01-04 17:17:35 Doctor Unassigned, No [facility] Medical [place] CONSENT/REFUSAL FOR 2021-01-04 17:17:20 Doctor Unassigned, No [facility] [place] DIAGNOSIS AND Name Medical [place] TREATMENT XR CHEST 1 VW COVID 2020-02-02 22:20:20 Rafael Perez [facility]EL[facility] WO 2020-02-02 22:14:49 [facility] 2020-02-02 21:58:00 Rafael Perez [facility] [place] ([id number]) Medical Branch CBC WITH DIFF 2020-02-02 21:58:00 [facility] [facility] POCT TEST 2020-02-02 21:58:00 Rafael Perez [facility] URINALYSIS 2020-02-02 21:51:00 Rafael Perez [facility] COVID-19 (ID NOW RAPID 2020-02-02 21:48:00 [facility]al [facility] [place] [facility] Medical Branch NOTICE OF PRIVACY 2020-02-02 18:28:09 Doctor Unassigned, No [facility] [place] PRACTICES Name Medical Branch CONSENT/REFUSAL FOR 2020-02-02 18:21:41 Doctor Unassigned, No [facility] [place] DIAGNOSIS AND Name Medical Branch TREATMENT Plan of Care Planned Activity Planned Date Details Comments Source Goal Plan of Care Note [code = 19356-6] Goal Plan of Care Note [code = 48446-1] Goal Plan of Care Note [code = 78180-8] Goal Plan of Care Note [code = 49101-1] Goal Plan of Care Note [code = 51681-5] Goal Plan of Care Note [code = 16477-3] Goal Plan of Care Note [code = 69131-6] Goal Plan of Care Note [code = 08132-0] Goal Plan of Care Note [code = 56179-5] Goal Plan of Care Note [code = 18129-7] Goal Plan of Care Note [code = 08304-6] Goal Plan of Care Note [code = 15263-8] Goal Plan of Care Note [code = 21819-6] Goal Plan of Care Note [code = 28968-1] Goal Plan of Care Note [code = 83586-9] Goal Plan of Care Note [code = 66405-6] Goal Plan of Care Note [code = 38792-7] Goal Plan of Care Note [code = 21535-0] Goal Plan of Care Note [code = 23192-8] Goal Plan of Care Note [code = 86014-6] Goal Plan of Care Note [code = 77896-0] Goal Plan of Care Note [code = 85743-3] Goal Plan of Care Note [code = 26782-7] Goal Plan of Care Note [code = 01564-5] Goal Plan of Care Note [code = 31248-6] Goal Plan of Care Note [code = 26388-0] Goal Plan of Care Note [code = 10934-7] Goal Plan of Care Note [code = 13189-5] Goal Plan of Care Note [code = 63424-8] Goal Plan of Care Note [code = 79172-7] Goal Plan of Care Note [code = 20279-7] Goal Plan of Care Note [code = 29502-5] Goal Plan of Care Note [code = 80001-9] Goal Plan of Care Note [code = 39617-3] Goal Plan of Care Note [code = 79462-4] Goal Plan of Care Note [code = 64493-9] Goal Plan of Care Note [code = 63463-4] Goal Plan of Care Note [code = 59413-1] Goal Plan of Care Note [code = 10108-7] Goal Plan of Care Note [code = 85521-2] Goal Plan of Care Note [code = 81416-2] Goal Plan of Care Note [code = 21046-5] Goal Plan of Care Note [code = 73078-6] Goal Plan of Care Note [code = 82521-5] Goal Plan of Care Note [code = 46851-3] Goal Plan of Care Note [code = 97670-7] Goal Plan of Care Note [code = 60352-1] Goal Plan of Care Note [code = 22062-7] Goal Plan of Care Note [code = 14689-0] Goal Plan of Care Note [code = 28607-1] Goal Plan of Care Note [code = 73832-5] Goal Plan of Care Note [code = 91277-7] Goal Plan of Care Note [code = 35263-3] Goal Plan of Care Note [code = 48688-3] Goal Plan of Care Note [code = 75039-4] Goal Plan of Care Note [code = 96659-5] Goal Plan of Care Note [code = 22260-2] Goal Plan of Care Note [code = 84908-6] Goal Plan of Care Note [code = 72978-1] Goal Plan of Care Note [code = 66100-1] Goal Plan of Care Note [code = 53567-9] Goal Plan of Care Note [code = 51256-2] Goal Plan of Care Note [code = 64044-7] Goal Plan of Care Note [code = 76705-9] Goal Plan of Care Note [code = 07870-9] Goal Plan of Care Note [code = 59453-1] Goal Plan of Care Note [code = 07858-6] Goal Plan of Care Note [code = 77481-4] Goal Plan of Care Note [code = 59151-5] Goal Plan of Care Note [code = 87817-7] Goal Plan of Care Note [code = 01902-5] Goal Plan of Care Note [code = 42239-0] Goal Plan of Care Note [code = 61733-1] Goal Plan of Care Note [code = 55378-3] Goal Plan of Care Note [code = 03924-0] Goal Plan of Care Note [code = 80529-2] Goal Plan of Care Note [code = 74896-1] Goal Plan of Care Note [code = 53164-1] Goal Plan of Care Note [code = 83257-6] Goal Plan of Care Note [code = 13614-1] Goal Plan of Care Note [code = 84742-5] Goal Plan of Care Note [code = 95064-5] Goal Plan of Care Note [code = 51164-9] Goal Plan of Care Note [code = 19736-5] Goal Plan of Care Note [code = 58282-3] Goal Plan of Care Note [code = 46279-9] Goal Plan of Care Note [code = 79952-0] Goal Plan of Care Note [code = 97419-2] Goal Plan of Care Note [code = 39502-0] Goal Plan of Care Note [code = 27104-8] Goal Plan of Care Note [code = 05487-8] Goal Plan of Care Note [code = 00452-1] Goal Plan of Care Note [code = 21248-1] Goal Plan of Care Note [code = 79310-8] Goal Plan of Care Note [code = 30983-3] Goal Plan of Care Note [code = 91199-4] Goal Plan of Care Note [code = 28129-6] Goal Plan of Care Note [code = 94224-9] Goal Plan of Care Note [code = 19114-9] Goal Plan of Care Note [code = 08451-5] Goal Plan of Care Note [code = 42629-7] Goal Plan of Care Note [code = 51301-8] Goal Plan of Care Note [code = 10435-1] Goal Plan of Care Note [code = 13310-7] Goal Plan of Care Note [code = 39207-3] Goal Plan of Care Note [code = 53924-9] Goal Plan of Care Note [code = 47594-2] Goal Plan of Care Note [code = 69430-4] Goal Plan of Care Note [code = 32782-7] Goal Plan of Care Note [code = 85784-1] Goal Plan of Care Note [code = 61411-1] Goal Plan of Care Note [code = 93836-1] Goal Plan of Care Note [code = 56251-9] Goal Plan of Care Note [code = 52385-3] Goal Plan of Care Note [code = 01825-3] Goal Plan of Care Note [code = 76596-9] Goal Plan of Care Note [code = 99262-5] Goal Plan of Care Note [code = 09956-8] Goal Plan of Care Note [code = 11165-9] Goal Plan of Care Note [code = 92933-1] Goal Plan of Care Note [code = 05466-3] Goal Plan of Care Note [code = 77892-3] Encounters Start End Encounter Admission Attending Care Care Encounter Source Date/Time Date/Time Type Type Clinicians Facility Department ID 2023-02-23 2023-02-23 Outpatient SFA SFA [id number] 023 Dani 09:27:08 09:27:08 0810 [facility] 2023-02-20 2023-02-20 Outpatient SFA SFA [id number] 023 Dani 10:16:33 10:16:33 0807 [facility] 2023-02-17 2023-02-17 Outpatient SFA SFA [id number] 023 Dani 10:05:32 10:05:32 0804 [facility] 2023-02-17 2023-02-17 Orders Doctor REJI 1.2.840.114 [id number] Univers 00:00:00 00:00:00 Only Unassigned, KRISTEN 350.1.13.[address] [place] [facility] 4.2.7.2.686 Jose Luis as [id number] [facility] 009 Branch 2022-12-08 2022-12-08 Outpatient SFA SFA [id number] 023 Dani 09:36:02 09:36:02 0525 [facility] 2022-12-05 2022-12-05 Outpatient SFA SFA [id number] 023 Dani 09:31:37 09:31:37 0522 [facility] 2022-12-01 2022-12-01 Outpatient SFA SFA [id number] 023 Dani 09:16:39 09:16:39 0518 [facility] 2022-09-22 2022-09-22 Outpatient SFA SFA [id number] 023 Dani 17:04:02 17:04:02 0309 F Cheikh 2022-08-31 2022-08-31 Emergency X MARGARETTE [facility] ERT [id number] Univers 10:51:00 11:41:00 SUPRIYA varner [facility] 2022-08-31 2022-08-31 [facility] 1.2.840.114 [id number] Univers 10:51:00 11:41:00 Supriya OLMOS 350.1.13.10 gardenia [facility] 4.2.7.2.686 [facility] [id number] [address] 2022-07-15 2022-07-15 Emergency [facility] [id number] Univers 11:31:00 16:31:00 DEBBIE gardenia [facility] 2022-07-15 2022-07-15 Emergency [facility] 1.2.840.114 [id number] Univers 11:31:00 16:31:00 Debbie OLMOS 350.1.13.10 garden[facility] 4.2.7.2.686 [facility] [id number] [address] 2022-05-01 2022-05-01 Emergency Luis [facility] [id number] Univers 12:42:00 14:35:00 MARCIO gardenia [facility] 2022-05-01 2022-05-01 Emergency [facility] 1.2.819.747 [id number] Univers 12:42:00 14:35:00 Marcio OLMOS 350.1.13.10 i ty [facility] 4.2.7.2.686 [facility] [id number] [address] 2022-04-14 2022-04-14 Outpatient [id number]- [id number] 0cm544-4 00:00:00 00:00:00 Visit 242c-4ad0 42c-4ad0-8 -8411-21b 411-21b74e 28k2k1v2d 7c1e5b 2022-04-12 2022-04-12 Outpatient 1045m669- [id number] 70 10y132-1 00:00:00 00:00:00 Visit 44m1-261h 9t1-069e-s -bdf5-cd3 df5-cd3df2 ss189n595 58a535 2022-02-18 2022-02-18 Outpatient j3u66osm- [id number] e0 s37uvn-9 00:00:00 00:00:00 Visit 2g31-8rx1 b88-9ia7-e -v743-8p9 798-8i5897 787beefcc [facility] 2021-01-04 2021-01-04 Emergency Gagandeep Rutherford [facility] 1.2.840.114 [id number] Univers 12:26:00 15:02:00 Rosangela Olmos 350.1.13.10 i ty of [place] 4.2.7.2.686 [facility] [id number] [address] 2021-01-04 2021-01-04 Emergency X KRISH Gagandeep [facility] ERT [id number] Univers 12:26:00 12:26:00 ity of [facility] 2021-01-04 2021-01-04 Orders Doctor REJI 1.2.840.114 [id number] Univers 00:00:00 00:00:00 Only Unassigned, KRISTEN 350.1.13.10 [facility] [place] [facility] 4.2.7.2.686 Jose Luis as [id number] [facility] 009 Branch 2020-02-04 2020-02-04 Patient Doctor REJI 1.2.840.114 [id number] Univers 00:00:00 00:00:00 Secure Msg Unassigned, KRISTEN 350.1.13.10 [facility] [place] [facility] 4.2.7.2.686 Jose Luis as [id number] [facility] 019 Branch 2020-02-02 2020-02-02 Emergency [facility] 1.2.840.114 [id number] Univers 14:49:37 19:17:00 Rafael Olmos 350.1.13.10 ity [facility] 4.2.7.2.686 [facility] [id number] [address] 2020-02-02 2020-02-02 Emergency [facility] 1.2.840.114 [id number] 14:49:37 19:17:00 Rafael Olmos 350.1.13.10 Jeana 4.2.7.2.686 [place] [id number] 084 2020-02-02 2020-02-02 Emergency X [facility] ERT [id number] Univers 13:20:00 13:20:00 [facility] Results Test Description Test Time Test Comments Results Result Comments Source CULTURE, URINE 2023-02-19 SPECIMEN NUMBER: 09:47:07 [id number] CULTURE, URINE SPECIMEN NUMBER: [id number] SPECIMEN COMMENT: URINE SOURCE: URINE REPORT STATUS: FINAL FINAL REPORT: 02/19/2023 10-50,000 CFU/ML UROGENITAL LANI PRESENT NO COMMON PATHOGENS HEMOGLOBIN A1c 2023-02-18 05:52:53 Test Item Value Reference Range Interpretation Comme nts HEMOGLOBIN A1c (test code = 5.7 % 4.2-5.6 H [employer] 57848) GUIDELINES FOR HGB A1C: PREDIABETES/INC REASED RISK . . . . . . . 5.7-6.4% DIAGNO SIS OF DIABETES . . . . . . . . . >=6.5% WITH CONFIRMATION OR APPROPRIATE SYM PTOMS NOTE: ASSAY MAY BE AFFECTED BY HEM OGLOBINOPATHIES (SICKLE CELL ANEMIA, S- C DISEASE, OTHERS) OR ARTIFICIALLY LO WERED BY DECREASED RED CELL SURVIVAL ( HEMOLYTIC ANEMIAS, BLOOD LOSS, ETC.). CO NSIDER ALTERNATE TESTING OR LABORATORY C ONSULTATION. HEPATITIS PANEL, [id number] 04:21:09 Test Item Value Reference Range Interpretation Comments HEPATITIS A TOTAL AB NON-REACTIVE NON-REACTIVE (test code = 2725) HEPATITIS B SURF AG NON-REACTIVE NON-REACTIVE (test code = 2739) HEP B CORE TOTAL AB NON-REACTIVE NON-REACTIVE (test code = 2729) HEPATITIS B SURFACE AB NON-REACTIVE NON-REACTIVE (test code = 2737) HEPATITIS C ANTIBODY NON-REACTIVE NON-REACTIVE (test code = 4675) INTERPRETATION (NOTE) Hepatitis A HEPATITIS A: (test serology shows no code = 2552) evidence of pas t exposure to orcurrent infec tion with hepatitis A virus; patient not immune tohepati tis A. INTERPRETATION (NOTE) Hepatitis B HEPATITIS B: (test serology shows no code = 45991) evidence of pa st exposure to orcurrent infec tion with hepatitis B virus. No evide nce of hepatitis Bimmunization i s identified. INTERPRETATION (NOTE) Hepatitis C HEPATITIS C: (test serology shows no code = 70737) evidence of ex posure to hepatitisC v irus at this time. I t can take up to 12 m onths after exposure tothe hepatitis C vir us for antibodies to become detectab le in the blood in ce rtain patients. UNLES S OTHERWISE INDIC ATED, ALL TESTING PERFORMED AT [facility] [place]. [address] [facility] [place] [address] [facility] DIRECTOR: Shar SIEGEL POLA NUMBER [id number] CAP [place] [id number] COMPREHENSIVE METABOLIC [id number] 03:56:49 Test Item Value Reference Range Interpretation Comments GLUCOSE (test code = 101 MG/DL 70-99 H 2216) BUN (test code = 10 MG/DL 6-20 2207) CREATININE (test 0.80 MG/DL 0.60-1.30 code = 2214) eGFR (2020 CKD-EPI) 91 ML/MIN/1.73 >60 (test code = 44988) CALC BUN/CREAT (test 13 RATIO 6-28 code = 2235) SODIUM (test code = 138 MEQ/L 911-191 3151) POTASSIUM (test code 4.0 MEQ/L 3.5-5.4 = 2227) CHLORIDE (test code 109 MEQ/L 95-107 H = 2214) CARBON DIOXIDE (test 17 MEQ/L 19-31 L code = 2206) CALCIUM (test code = 8.8 MG/DL 8.5-10.5 2208) PROTEIN, TOTAL (test 7.3 G/DL 6.1-8.3 code = 2229) ALBUMIN (test code = 4.4 G/DL 3.5-5.2 2200) CALC GLOBULIN (test 2.9 G/DL 1.9-3.7 code = 2240) CALC A/G RATIO (test 1.5 RATIO 1.0-2.6 code = 2234) BILIRUBIN, TOTAL <0.2 MG/DL See_Comment [Automated message] (test code = 2207) The syste m which generated this result transmit tomasa reference range : <=1.2. The refe rence range was not u sed to interpret th is result as normal/abnormal . ALKALINE PHOSPHATASE 133 U/L 40-123 H (test code = 2203) AST (test code = 35 U/L 9-40 2217) ALT (test code = 43 U/L 5-40 H 2218) LIPID [id number] 03:56:49 Test Item Value Reference Range Interpretation Comments CHOLESTEROL (test 156 MG/DL <200 code = 2210) TRIGLYCERIDES (test 142 MG/DL <150 code = 2232) HDL CHOLESTEROL (test 43 MG/DL >39 code = 2220) CALC LDL CHOL (test 89 MG/DL <100 NOTE: C ALCULATED LDL code = 2237) IS BASED ON VIOLET-HENRY METHOD WHICHINCLUDES ADJUSTABLE TRIGLYCERIDE:VL DL CHOLESTEROL RAT IO.THIS FACTOR VARIES B Y MEASURED TRIGLY CERIDE AND NON-HDLCHOL ESTEROL CONCENTRATIONS WITH INCREASED CALCU LATED LDL SEENIN HIGH ER TRIGLYCERIDE OR LOWER NON-HDL SPECIME NS. FOR MOREINFORMATION , SEE CLIENT ANNOUNCE MENT AT [email or web address] RISK RATIO LDL/HDL 2.07 RATIO <3.22 (test code = 2237) CBC W/AUTO DIFF WITH [id number] 01:44:08 Test Item Value Reference Range Interpretation Comments WBC (test code = 9.6 K/UL 3.5-11.0 1001) RBC (test code = 4.73 M/UL 3.80-5.40 1002) HEMOGLOBIN (test code 12.5 G/DL 11.5-15.5 = 1003) HEMATOCRIT (test code 37.8 % 34.0-45.0 = 1004) MCV (test code = 79.9 fL 80.0-99.0 L 1005) MCH (test code = 26.4 PG 25.0-33.0 1006) MCHC (test code = 33.1 G/DL 31.0-36.0 1007) RDW (test code = 15.1 % 11.5-15.0 H 1038) NEUTROPHILS (test 68.4 % code = 1008) LYMPHOCYTES (test 22.6 % code = 1010) MONOCYTES (test code 6.7 % = 1011) EOSINOPHILS (test 1.3 % code = 1012) BASOPHILS (test code 0.3 % = 1013) IMMATURE GRANULOCYTES 0.7 % (test code = 1036) NUCLEATED RBCS (test 0.0 /100 WBC'S See_Comment [Aut omated code = 1065) message] The sy stem which generated this result transmitted reference range : 0.0. The refere nce range was not u sed to interpret th is result as normal/abnormal . PLATELET COUNT (test 442 K/UL 130-400 H code = 1015) ABSOLUTE NEUTROPHILS 6.55 K/UL 1.50-7.50 (test code = 1066) ABSOLUTE LYMPHOCYTES 2.16 K/UL 1.00-4.00 (test code = 1067) ABSOLUTE MONOCYTES 0.64 K/UL 0.20-1.00 (test code = 1068) ABSOLUTE EOSINOPHILS 0.12 K/UL 0.00-0.50 (test code = 1040) ABSOLUTE BASOPHILS 0.03 K/UL 0.00-0.20 (test code = 1069) ABS IMMATURE 0.07 K/UL 0.00-0.10 GRANULOCYTES (test code = 1020) ABS NUCLEATED RBCS 0.00 K/UL 0.00-0.11 (test code = 91222) VAGINAL PATHOGENS DNA [id number] 13:08:06 Test Item Value Reference Range Interpretation Comments CATA SPECIES POSITIVE NEGATIVE A (test code = ) G. VAGINALIS NEGATIVE NEGATIVE (test code = ) T. VAGINALIS NEGATIVE NEGATIVE Note: The BD A ffirm VPIII (test code = Microbial Ident ification ) Testis a DNA pr obe test intended for us e in the detectionand id entification of Cata spec ies, Gardnerellavagi nalis and Trichomonas vag inalis nucleic acid. * [facility] has important patho logy staff changes effecti ve 09/14/2022. New pathology staff will provide uninterrupted, excellent patient care a nd clinical consultation. S ee URL: [email or web address]. UNLESS OTHE RWISE INDICATED, ALL TESTING [facility]FORMED [facility] [address] [place] [address] LABORATOR Y DIRECTOR: MAKAYLA HASKINS M.D. [facility] NUMBER [id number] CAP ACCREDITATION N O. [id number] COMP. METABOLIC PANEL ([id number])2022-07-15 20:37:41 Test Item Value Reference Range Interpretation Comments NA (test code = 138 mmol/L 135-145 0947399639) K (test code = 5.2 mmol/L 3.5-5.0 H 1260570539) CL (test code = 111 mmol/L 98-108 H 8401930741) CO2 TOTAL (test code = 18 mmol/L 23-31 L 7952840159) AGAP (test code = 2-16 9767030698) BUN (test code = 11 mg/dL 7-23 2733607506) GLUCOSE (test code = 83 mg/dL 70-110 9437225482) CREATININE (test code = 0.97 mg/dL 0.50-1.04 9270161239) TOTAL BILI (test code = 0.6 mg/dL 0.1-1.3 5868404572) CALCIUM (test code = 8.5 mg/dL 8.6-10.6 L 8820607303) T PROTEIN (test code = 7.5 g/dL 6.3-8.2 1670486033) ALBUMIN (test code = 4.1 g/dL 3.5-5.0 0878324616) ALK PHOS (test code = 106 U/L 34-122 7833424423) ALTv (test code = 18 U/L 5-35 1742-6) AST(SGOT) (test code = 35 U/L 13-40 5564024385) eGFR (test code = mL/min/1.73m2 1889443606) TOMA (test code = TOMA) Association of [...] tests). Lab Interpretation Abnormal (test code = 93842-3) [facility] WITH [id number] 20:07:37 Test Item Value Reference Range Interpretation Comments WBC (test code = See_Comment [Automated message] 3390-2) The system Dig[employer] generated this result transmitted ref erence range: 4.30 - 1 1.10 10*3/?L. The re ference range was not u sed to interpret this result as normal/abnor mal. RBC (test code = See_Comment [Automated message] 899-8) The system [employer] generated this result transmitted ref erence range: [...] RDW-SD (test code 47.9 fL 39.0-49.9 = 56112-1) RDW-CV (test code 15.1 % 12.0-15.5 = 788-0) PLT (test code = See_Comment [Automated message] 777-3) The system whic h generated this result transmitted ref erence range: 166 - 35 8 10*3/?L. The re ference range was not u sed to interpret this result as normal/abnor mal. MPV (test code = 9.8 fL 9.5-12.9 24464-7) NRBC/100 WBC (test See_Comment [Automat ed message] code = 3775723982) The syste m which generated this result transmitted ref erence range: 0.0 - 10 .0 /100 WBCs. The refer ence range was not u sed to interpret this result as normal/abnor mal. NRBC x10^3 (test See_Comment [Automated message] code = 0631332190) The syste m which generated this result transmitted ref erence range: 10*3/?L. The reference range was not used to interpr et this result as normal/abnormal . GRAN MAT (NEUT) % 63.9 % (test code = 770-8) IMM GRAN % (test 0.50 % code = 1412497722) LYMPH % (test code 24.7 % = 736-9) MONO % (test code 9.6 % = 5905-5) EOS % (test code = 0.9 % 713-8) BASO % (test code 0.4 % = 706-2) GRAN MAT 5.04 10*3/uL 1.88-7.09 x10^3(ANC) (test code = 7539934589) IMM GRAN x10^3 0.04 10*3/uL 0.00-0.06 (test code = 0261736401) LYMPH x10^3 (test 1.95 10*3/uL 1.32-3.29 code = 731-0) MONO x10^3 (test 0.76 10*3/uL 0.33-0.92 code = 742-7) EOS x10^3 (test 0.07 10*3/uL 0.03-0.39 code = 711-2) BASO x10^3 (test 0.03 10*3/uL 0.01-0.07 code = 704-7) [facility] [id number] 19:34:00 Test Item Value Reference Range Interpretation Comments POCT PREG (test code = 1605) Negative On board controls acceptable with Present C Line (test code = 3574) POCT PREG LOT # (test code = 3575) [id number] POCT PREG TEST DATE (test 10-15-2023 code = 3576) Lab Interpretation (test code = Normal 10786-8) [facility]. METABOLIC PANEL ([id number])2022-05-01 18:34:40 Test Item Value Reference Range Interpretation Comments NA (test code = 140 mmol/L 135-145 6325641745) K (test code = 4.4 mmol/L 3.5-5 6761566233) CL (test code = 110 mmol/L 98-108 H 8176038320) CO2 TOTAL (test code = 20 mmol/L 23-31 L 5557115557) AGAP (test code = 2-16 4761658389) BUN (test code = 10 mg/dL 7-23 5619834687) GLUCOSE (test code = 104 mg/dL 70-110 1927077672) CREATININE (test code = 0.84 mg/dL 0.5-1.04 7821107591) TOTAL BILI (test code = 0.3 mg/dL 0.1-1.0 2225965257) CALCIUM (test code = 8.2 mg/dL 8.6-10.6 L 2534783389) T PROTEIN (test code = 7.0 g/dL 6.3-8.2 3047411909) ALBUMIN (test code = 4.1 g/dL 3.5-5 3365387447) ALK PHOS (test code = 95 U/L 34-122 2700751884) ALTv (test code = 34 U/L 5-35 1742-6) AST(SGOT) (test code = 45 U/L 13-40 H 0010390153) eGFR (test code = mL/min/1.73m2 4259469180) TOMA (test code = TOMA) Association of [...] tests). Lab Interpretation Abnormal (test code = 73128-8) [facility] WITH [id number] 18:13:21 Test Item Value Reference Range Interpretation Comments WBC (test code = See_Comment [Automated 9627-2) message] The sy stem which generated this result transmitted reference range : 4.30 - 11.10 10*3/?L. The reference range was not used to interpret this result as normal/abnormal . RBC (test code = See_Comment [Automated 248-8) message] The sy stem which generated this [...] RDW-SD (test code = 48.9 fL 39-49.9 92874-0) RDW-CV (test code = 15.7 % 12-15.5 H 788-0) PLT (test code = See_Comment [Automated 777-3) message] The sy stem which generated this result transmitted reference range : 166 - 358 10*3/ ?L. The reference r martha was not used to interpret this result as normal/abnormal . MPV (test code = 9.5 fL 9.5-12.9 85886-2) NRBC/100 WBC (test See_Comment [Automat ed code = 1518606332) message] The system which generated this result transmitted reference range : 0.0 - 10.0 /100 WBCs. The refer ence range was not u sed to interpret th is result as normal/abnormal . NRBC x10^3 (test code See_Comment [Auto mated = 4710177734) message] The s ystem which generated this result transmitted reference range : 10*3/?L. The reference range was not used to interpret this result as normal/abnormal . GRAN MAT (NEUT) % 63.1 % (test code = 770-8) IMM GRAN % (test code 0.40 % = 1838234512) LYMPH % (test code = 24.5 % 736-9) MONO % (test code = 9.2 % 5905-5) EOS % (test code = 2.3 % 713-8) BASO % (test code = 0.5 % 706-2) GRAN MAT x10^3(ANC) 5.11 10*3/uL 1.88-7.09 (test code = [id number]) IMM GRAN x10^3 (test 0.03 10*3/uL 0-0.06 code = [id number]) LYMPH x10^3 (test code 1.99 10*3/uL 1.32-3.29 = 731-0) MONO x10^3 (test code 0.75 10*3/uL 0.33-0.92 = 742-7) EOS x10^3 (test code = 0.19 10*3/uL 0.03-0.39 711-2) BASO x10^3 (test code 0.04 10*3/uL 0.01-0.07 = 704-7) Lab Interpretation Abnormal (test code = 61957-7) [facility] [id number] 15:54:23 Test Item Value Reference Range Interpretation Comments CATA SPECIES (test POSITIVE NEGATIVE A code = 57951) G. VAGINALIS (test POSITIVE NEGATIVE A code = ) T. VAGINALIS (test NEGATIVE NEGATIVE UNLESS O THERWISE code = 17237) INDICATED, ALL TESTING PERFORMED [facility] [employer]. [address] [place] [address] 4 LABORATORY DIRE CTOR: THEO CASTILLO M.D. CLIA NUMBER [id number] [facility] [place] [id number] SCR MAMM BILATERAL NATHAN CAD [id number] 08:04:31 Name: Yissel : 1975 Sex: F - SCR MAMM BILATERAL NATHAN CAD DIGITALBILATERAL DIGITAL SCREENING MAMMOGRAM 3D/2D WITH CAD: 04/08/2022LINICAL: Asymptomatic. Digital breasttomosynthesis was performed in addition to routine CC and MLO views. Current mammographic images were evaluated by [employer] CAD (computer-aided detection) software. No prior exams were available for comparison. There are scattered fibroglandular tissues in both breasts. There are benign calcifications in both breasts. There is a subcentimeter low density mass with a circumscribed margin in the left breast at 7 o'clock middle depth. No other significant masses, calcifications, or other findings are seen in either breast. IMPRESSION: INCOMPLETE: ADDITIONAL IMAGING EVALUATION NEEDEDThe lowdensity mass in the left breast is indeterminate. Ultrasound with possible additional views are recommended. Sarah Rendon M.D. [facility]/:04/15/2022 08:04:31 Loading Machine Tool Setter: Shireen Graham MM, [facility] MammographyMammogram BI-RADS: 0 Incomplete: Additional Imaging Evaluation NeededVAGINAL PATHOGENS DNA [id number] 00:00:00 Test Item Value Reference Range Interpretation Comments CATA SPECIES (test code = ) POSITIVE G. VAGINALIS (test code = ) POSITIVE T. VAGINALIS (test code = ) NEGATIVE VAGINAL PATHOGENS DNA [id number] 00:00:00 Test Item Value Reference Range Interpretation Comments CATA SPECIES (test code = ) POSITIVE G. VAGINALIS (test code = ) POSITIVE T. VAGINALIS (test code = ) NEGATIVE CT/NG, NAAT, [id number] 21:50:47 Test Item Value Reference Range Interpretation Comments GONORRHEA, NAAT NEGATIVE NEGATIVE IMPORTA NT NOTICE: SEE (test code = [place] [address]) [email or web address] Note: Assay methodology is nucleic acid amplification b y sales and production manager m ediated amplification ( TMA) utilizing the A ptima Combo 2 Assay. CHLAMYDIA, NAAT NEGATIVE NEGATIVE IMPORTA NT NOTICE: SEE (test code = [place] [address]) [email or web address] Note: Assay methodology is nucleic acid amplification b y sales and production manager m ediated amplification ( TMA) utilizing the A ptima Combo 2 Assay. HIV 1/2 4TH GEN, RFLX [id number] 04:59:08 Test Item Value Reference Range Interpretation Comments HIV 1/2 4TH GEN, RFLX CONF (test NON-REACTIVE NON-REACTIVE code = 3514) HEPATITIS PANEL, [id number] 04:59:08 Test Item Value Reference Range Interpretation Comments HEPATITIS A IgM (test NON-REACTIVE NON-REACTIVE code = 39276) HEPATITIS B CORE IgM NON-REACTIVE NON-REACTIVE (test code = 4644) HEPATITIS B SURF AG NON-REACTIVE NON-REACTIVE (test code = 2739) HEPATITIS C ANTIBODY NON-REACTIVE NON-REACTIVE (test code = 4675) INTERPRETATION (NOTE) Hepatitis A HEPATITIS A: (test code sero logy shows no = 2552) evidence of acu te hepatitis A. INTERPRETATION (NOTE) Hepatitis B HEPATITIS B: (test code sero logy shows no = 82693) evidence of acu te hepatitis B and no indication of exposure to hepatitis B vir us in the previous ce eight months. INTERPRETATION (NOTE) Hepatitis C HEPATITIS C: (test code sero logy shows no = 82772) evidence of exposure to hepatitisC viru s at this time. I t can take up to 12 months after exposure tothe hepatitis C vir us for antibodies to become detectab le in the blood in certain patient s. [id number] 04:17:56 Test Item Value Reference Range Interpretation Comments RPR RESULT (test NON-REACTIVE NON-REACTIVE code = 3501) RPR TITER (test NOT INDIC. NOT INDIC. UNLESS OTHE RWISE code = 3500) TITER INDICATED, ALL TESTING PERFORMED [facility] [employer] [address] [place] [address] LABORATORY DIRE CTOR: THEO CASTILLO M.D. CLIA NUMBER [id number] [place]. [id number] GC AND CHLAMYDIA, AMPLIFIED, [id number] 00:00:00 Test Item Value Reference Range Interpretation Comments GONORRHEA, NAAT (test code = 85993) NEGATIVE CHLAMYDIA, NAAT (test code = 11169) NEGATIVE HIV AB/AG COMBO RFLX [id number] 00:00:00 Test Item Value Reference Range Interpretation Comments HIV 1/2 4TH GEN, RFLX CONF (test NON-REACTIVE code = 3514) ACUTE HEPATITIS [id number] 00:00:00 Test Item Value Reference Range Interpretation Comments HEPATITIS A IgM (test code = NON-REACTIVE 50648) HEPATITIS B CORE IgM (test code NON-REACTIVE = 4644) HEPATITIS B SURF AG (test code = NON-REACTIVE 2739) HEPATITIS C ANTIBODY (test code NON-REACTIVE = 4675) INTERPRETATION HEPATITIS A: (NOTE) (test code = 2552) INTERPRETATION HEPATITIS B: (NOTE) (test code = 85532) INTERPRETATION HEPATITIS C: (NOTE) (test code = 81736) [id number] 00:00:00 Test Item Value Reference Range Interpretation Comments RPR RESULT (test code = NON-REACTIVE 3501) RPR TITER (test code = 3500) NOT INDIC. TITER [id number] 00:00:00 Test Item Value Reference Range Interpretation Comments RPR RESULT (test code = NON-REACTIVE 3501) RPR TITER (test code = 3500) NOT INDIC. TITER GC AND CHLAMYDIA, AMPLIFIED, [id number] 00:00:00 Test Item Value Reference Range Interpretation Comments GONORRHEA, NAAT (test code = 85894) NEGATIVE CHLAMYDIA, NAAT (test code = 73287) NEGATIVE GC AND CHLAMYDIA, AMPLIFIED, [id number] 00:00:00 Test Item Value Reference Range Interpretation Comments GONORRHEA, NAAT (test code = 90996) NEGATIVE CHLAMYDIA, NAAT (test code = 40860) NEGATIVE HIV AB/AG COMBO RFLX [id number] 00:00:00 Test Item Value Reference Range Interpretation Comments HIV 1/2 4TH GEN, RFLX CONF (test NON-REACTIVE code = 3514) HIV AB/AG COMBO RFLX [id number] 00:00:00 Test Item Value Reference Range Interpretation Comments HIV 1/2 4TH GEN, RFLX CONF (test NON-REACTIVE code = 3514) ACUTE HEPATITIS [id number] 00:00:00 Test Item Value Reference Range Interpretation Comments HEPATITIS A IgM (test code = NON-REACTIVE 37973) HEPATITIS B CORE IgM (test code NON-REACTIVE = 4644) HEPATITIS B SURF AG (test code = NON-REACTIVE 2739) HEPATITIS C ANTIBODY (test code NON-REACTIVE = 4675) INTERPRETATION HEPATITIS A: (NOTE) (test code = 2552) INTERPRETATION HEPATITIS B: (NOTE) (test code = 94003) INTERPRETATION HEPATITIS C: (NOTE) (test code = 44702) ACUTE HEPATITIS [id number] 00:00:00 Test Item Value Reference Range Interpretation Comments HEPATITIS A IgM (test code = NON-REACTIVE 11939) HEPATITIS B CORE IgM (test code NON-REACTIVE = 4644) HEPATITIS B SURF AG (test code = NON-REACTIVE 2739) HEPATITIS C ANTIBODY (test code NON-REACTIVE = 4675) INTERPRETATION HEPATITIS A: (NOTE) (test code = 2552) INTERPRETATION HEPATITIS B: (NOTE) (test code = 98181) INTERPRETATION HEPATITIS C: (NOTE) (test code = 20353) [id number] 00:00:00 Test Item Value Reference Range Interpretation Comments RPR RESULT (test code = NON-REACTIVE 3501) RPR TITER (test code = 3500) NOT INDIC. TITER [id number] 00:00:00 Test Item Value Reference Range Interpretation Comments RPR RESULT (test code = NON-REACTIVE 3501) RPR TITER (test code = 3500) NOT INDIC. TITER [id number] 00:00:00 Test Item Value Reference Range Interpretation Comments RPR RESULT (test code = NON-REACTIVE 3501) RPR TITER (test code = 3500) NOT INDIC. TITER GC AND CHLAMYDIA, AMPLIFIED, [id number] 00:00:00 Test Item Value Reference Range Interpretation Comments GONORRHEA, NAAT (test code = 07913) NEGATIVE CHLAMYDIA, NAAT (test code = 81973) NEGATIVE GC AND CHLAMYDIA, AMPLIFIED, [id number] 00:00:00 Test Item Value Reference Range Interpretation Comments GONORRHEA, NAAT (test code = 37055) NEGATIVE CHLAMYDIA, NAAT (test code = 93902) NEGATIVE HIV AB/AG COMBO RFLX [id number] 00:00:00 Test Item Value Reference Range Interpretation Comments HIV 1/2 4TH GEN, RFLX CONF (test NON-REACTIVE code = 3514) HIV AB/AG COMBO RFLX [id number] 00:00:00 Test Item Value Reference Range Interpretation Comments HIV 1/2 4TH GEN, RFLX CONF (test NON-REACTIVE code = 3514) ACUTE HEPATITIS [id number] 00:00:00 Test Item Value Reference Range Interpretation Comments HEPATITIS A IgM (test code = NON-REACTIVE 81907) HEPATITIS B CORE IgM (test code NON-REACTIVE = 4644) HEPATITIS B SURF AG (test code = NON-REACTIVE 2739) HEPATITIS C ANTIBODY (test code NON-REACTIVE = 4675) INTERPRETATION HEPATITIS A: (NOTE) (test code = 2552) INTERPRETATION HEPATITIS B: (NOTE) (test code = 58601) INTERPRETATION HEPATITIS C: (NOTE) (test code = 40158) ACUTE HEPATITIS [id number] 00:00:00 Test Item Value Reference Range Interpretation Comments HEPATITIS A IgM (test code = NON-REACTIVE 84979) HEPATITIS B CORE IgM (test code NON-REACTIVE = 4644) HEPATITIS B SURF AG (test code = NON-REACTIVE 2739) HEPATITIS C ANTIBODY (test code NON-REACTIVE = 4675) INTERPRETATION HEPATITIS A: (NOTE) (test code = 2552) INTERPRETATION HEPATITIS B: (NOTE) (test code = 05855) INTERPRETATION HEPATITIS C: (NOTE) (test code = 43046) [id number] 00:00:00 Test Item Value Reference Range Interpretation Comments RPR RESULT (test code = NON-REACTIVE 3501) RPR TITER (test code = 3500) NOT INDIC. TITER [id number] 00:00:00 Test Item Value Reference Range Interpretation Comments RPR RESULT (test code = NON-REACTIVE 3501) RPR TITER (test code = 3500) NOT INDIC. TITER [id number] 00:00:00 Test Item Value Reference Range Interpretation Comments RPR RESULT (test code = NON-REACTIVE 3501) RPR TITER (test code = 3500) NOT INDIC. TITER Complete Metabolic [id number] 18:07:03 Test Item Value Reference Range Interpretation Comments NA (test code = 139 mmol/L 135-145 9240725171) K (test code = 3.6 mmol/L 3.5-5.0 3938312682) CL (test code = 109 mmol/L 98-108 H 0643070920) CO2 TOTAL (test code = 19 mmol/L 23-31 L 0861353084) AGAP (test code = 2-16 7518182392) BUN (test code = 10 mg/dL 7-23 3439791454) GLUCOSE (test code = 112 mg/dL 70-110 H 8833092908) CREATININE (test code = 0.89 mg/dL 0.50-1.04 2093737934) TOTAL BILI (test code = 0.3 mg/dL 0.1-1.2 6352759005) CALCIUM (test code = 8.1 mg/dL 8.6-10.6 L 2925126728) T PROTEIN (test code = 8.1 g/dL 6.3-8.2 3564008536) ALBUMIN (test code = 4.3 g/dL 3.5-5.0 3389754461) ALK PHOS (test code = 121 U/L 34-122 0244579830) ALTv (test code = 22 U/L 5-35 1742-6) AST(SGOT) (test code = 33 U/L 13-40 6697148465) eGFR (test code = mL/min/1.73m2 6280250911) TOMA (test code = TOMA) Association of [...] tests). Lab Interpretation Abnormal (test code = 68469-2) [facility] [id number] 18:06:22 Test Item Value Reference Range Interpretation Comments LIPASE (test code = 4509948892) 65 U/L 0-220 Lab Interpretation (test code = Normal 13854-9) [facility] [id number] 18:03:42 Test Item Value Reference Range Interpretation Comments APPEARANCE (test code = Hazy Clear A 1583673168) COLOR (test code = Reta Yellow A 7188410169) PH (test code = 4.8-8.0 4745619206) SP GRAVITY (test code = 1.003-1.030 5307355413) GLU U QUAL (test code = Normal Normal 5548075294) BLOOD (test code = 1+ Negative A 4215739819) KETONES (test code = Negative Negative 4868049724) PROTEIN (test code = 30 mg/dL Negative A 2887-8) UROBILIN (test code = 4.0 mg/dL Normal A 9942687111) BILIRUBIN (test code = Negative Negative 0621147259) NITRITE (test code = Positive Negative A 0105006745) LEUK CHARLES (test code = Negative Negative 3334960259) RBC/HPF (test code = See_Comment H [Autom ated message] 8072094432) The system Digly generated this result transmit tomasa reference range : 0 - 3 HPF. The refe rence range was not u sed to interpret th is result as normal/abnormal . WBC/HPF (test code = See_Comment H [Autom ated message] 9152483092) The system Digly generated this result transmit tomasa reference range : 0 - 5 HPF. The refe rence range was not u sed to interpret th is result as normal/abnormal . BACTERIA (test code = Many Negative A 2614378723) MUCOUS (test code = Marked Negative LPF A 2816425829) SQ EPITH (test code = HPF 5003654274) Lab Interpretation (test Abnormal code = 48764-8) [facility] with [id number] 17:53:21 Test Item Value Reference Range Interpretation Comments WBC (test code = See_Comment [Automated message] 6690-2) The system Digly generated this result transmitted ref erence range: 4.30 - 1 1.10 10*3/?L. The re ference range was not u sed to interpret this result as normal/abnor mal. RBC (test code = See_Comment [Automated message] 789-8) The system Digly generated this result transmitted ref erence range: [...] RDW-SD (test code 48.3 fL 39.0-49.9 = 31060-3) RDW-CV (test code 15.2 % 12.0-15.5 = 788-0) PLT (test code = See_Comment [Automated message] 777-3) The system Search to Phoneic h generated this result transmitted ref erence range: 166 - 35 8 10*3/?L. The re ference range was not u sed to interpret this result as normal/abnor mal. MPV (test code = 9.5 fL 9.5-12.9 14921-2) NRBC/100 WBC (test See_Comment [Automat ed message] code = 9411330673) The syste m which generated this result transmitted ref erence range: 0.0 - 10 .0 /100 WBCs. The refer ence range was not u sed to interpret this result as normal/abnor mal. NRBC x10^3 (test <0.01 See_Comment [Automated message] code = 4741622059) The syste m which generated this result transmitted ref erence range: 10*3/?L. The reference range was not used to interpr et this result as normal/abnormal . GRAN MAT (NEUT) % 67.1 % (test code = 770-8) IMM GRAN % (test 0.50 % code = 6323591297) LYMPH % (test code 21.1 % = 736-9) MONO % (test code 10.6 % = 5905-5) EOS % (test code = 0.5 % 713-8) BASO % (test code 0.2 % = 706-2) GRAN MAT 5.75 10*3/uL 1.88-7.09 x10^3(ANC) (test code = 9341208140) IMM GRAN x10^3 0.04 10*3/uL 0.00-0.06 (test code = 7529590890) LYMPH x10^3 (test 1.81 10*3/uL 1.32-3.29 code = 731-0) MONO x10^3 (test 0.91 10*3/uL 0.33-0.92 code = 742-7) EOS x10^3 (test 0.04 10*3/uL 0.03-0.39 code = 711-2) BASO x10^3 (test <0.03 0.01-0.07 code = 704-7) [facility] [id number] 17:41:00 Test Item Value Reference Range Interpretation Comments POCT PREG (test code = 1605) negative On board controls acceptable with C present Line (test code = 3574) Lab Interpretation (test code = Normal 97315-4) [facility] AntonioCBC W/AUTO [id number] 00:00:00 Test Item Value Reference Range Interpretation [...] NUCLEATED RBCS (test code = 0.00 K/UL 63960) CBC W/AUTO [id number] 00:00:00 Test Item Value Reference Range Interpretation [...] NUCLEATED RBCS (test code = 0.00 K/UL 29199) HEMOGLOBIN [id number] 00:00:00 Test Item Value Reference Range Interpretation Comments HEMOGLOBIN A1c (test code = 71257) 5.5 % HEMOGLOBIN [id number] 00:00:00 Test Item Value Reference Range Interpretation Comments HEMOGLOBIN A1c (test code = 02062) 5.5 % LIPID [id number] 00:00:00 Test Item Value Reference Range Interpretation Comments CHOLESTEROL (test code = 2210) 160 MG/DL TRIGLYCERIDES (test code = 2232) 237 MG/DL HDL CHOLESTEROL (test code = 2220) 41 MG/DL CALC LDL CHOL (test code = 2237) 86 MG/DL RISK RATIO LDL/HDL (test code = 2.10 RATIO 2238) COMPREHENSIVE METABOLIC [id number] 00:00:00 Test Item Value Reference Range Interpretation Comments GLUCOSE (test code = 2217) 109 MG/DL BUN (test code = 2208) 12 MG/DL CREATININE (test code = 2214) 0.83 MG/DL eGFR AMER. (test code 98 ML/MIN/1.73 = 03277) eGFR NON- AMER. (test 85 ML/MIN/1.73 code = 47119) CALC BUN/CREAT (test code = 14 RATIO [...] ALT (test code = 2219) 15 U/L [id number] 00:00:00 Test Item Value Reference Range Interpretation Comments TSH, THIRD GENERATION (test code 0.889 UIU/ML = 2821) [id number] 00:00:00 Test Item Value Reference Range Interpretation Comments TSH, THIRD GENERATION (test code 0.889 UIU/ML = 2821) VITAMIN D, 25 [id number] 00:00:00 Test Item Value Reference Range Interpretation Comments VITAMIN D, 25 OH (test code = 4958) 15 NG/ML CBC W/AUTO [id number] 00:00:00 Test Item Value Reference Range Interpretation [...] NUCLEATED RBCS (test code = 0.00 K/UL 15622) CBC W/AUTO [id number] 00:00:00 Test Item Value Reference Range Interpretation [...] NUCLEATED RBCS (test code = 0.00 K/UL 22344) CBC W/AUTO [id number] 00:00:00 Test Item Value Reference Range Interpretation [...] NUCLEATED RBCS (test code = 0.00 K/UL 42218) HEMOGLOBIN [id number] 00:00:00 Test Item Value Reference Range Interpretation Comments HEMOGLOBIN A1c (test code = 17223) 5.5 % HEMOGLOBIN [id number] 00:00:00 Test Item Value Reference Range Interpretation Comments HEMOGLOBIN A1c (test code = 43098) 5.5 % HEMOGLOBIN [id number] 00:00:00 Test Item Value Reference Range Interpretation Comments HEMOGLOBIN A1c (test code = 87048) 5.5 % LIPID [id number] 00:00:00 Test Item Value Reference Range Interpretation Comments CHOLESTEROL (test code = 2210) 160 MG/DL TRIGLYCERIDES (test code = 2232) 237 MG/DL HDL CHOLESTEROL (test code = 2220) 41 MG/DL CALC LDL CHOL (test code = 2237) 86 MG/DL RISK RATIO LDL/HDL (test code = 2.10 RATIO 2238) LIPID [id number] 00:00:00 Test Item Value Reference Range Interpretation Comments CHOLESTEROL (test code = 2210) 160 MG/DL TRIGLYCERIDES (test code = 2232) 237 MG/DL HDL CHOLESTEROL (test code = 2220) 41 MG/DL CALC LDL CHOL (test code = 2237) 86 MG/DL RISK RATIO LDL/HDL (test code = 2.10 RATIO 2238) COMPREHENSIVE METABOLIC [id number] 00:00:00 Test Item Value Reference Range Interpretation Comments GLUCOSE (test code = 2217) 109 MG/DL BUN (test code = 2208) 12 MG/DL CREATININE (test code = 2214) 0.83 MG/DL eGFR AMER. (test code 98 ML/MIN/1.73 = 38050) eGFR NON- AMER. (test 85 ML/MIN/1.73 code = 69333) CALC BUN/CREAT (test code = 14 RATIO [...] code = 2219) 15 U/L COMPREHENSIVE METABOLIC [id number] 00:00:00 Test Item Value Reference Range Interpretation Comments GLUCOSE (test code = 2217) 109 MG/DL BUN (test code = 2208) 12 MG/DL CREATININE (test code = 2214) 0.83 MG/DL eGFR AMER. (test code 98 ML/MIN/1.73 = 66823) eGFR NON- AMER. (test 85 ML/MIN/1.73 code = 83092) CALC BUN/CREAT (test code = 14 RATIO 2235) SODIUM (test code = 2231) 140 MEQ/L POTASSIUM (test code = 2228) 3.8 MEQ/L CHLORIDE (test code = 2215) 107 MEQ/L CARBON DIOXIDE (test code = 22 MEQ/L 2205) CALCIUM (test code = 2209) 9.1 MG/DL PROTEIN, TOTAL (test code = 7.4 G/DL 2228) ALBUMIN (test code = 220) 4.2 G/DL CALC GLOBULIN (test code = 3.2 G/DL 2239) CALC A/G RATIO (test code = 1.3 RATIO 2233) BILIRUBIN, TOTAL (test code = <0.2 MG/DL 2206) ALKALINE PHOSPHATASE (test 99 U/L code = 2204) AST (test code = 2218) 17 U/L ALT (test code = 2219) 15 U/L [id number] 00:00:00 Test Item Value Reference Range Interpretation Comments TSH, THIRD GENERATION (test code 0.889 UIU/ML = 2821) [id number] 00:00:00 Test Item Value Reference Range Interpretation Comments TSH, THIRD GENERATION (test code 0.889 UIU/ML = 2821) [id number] 00:00:00 Test Item Value Reference Range Interpretation Comments TSH, THIRD GENERATION (test code 0.889 UIU/ML = 2821) VITAMIN D, 25 [id number] 00:00:00 Test Item Value Reference Range Interpretation Comments VITAMIN D, 25 OH (test code = 4958) 15 NG/ML VITAMIN D, 25 [id number] 00:00:00 Test Item Value Reference Range Interpretation Comments VITAMIN D, 25 OH (test code = 4958) 15 NG/ML CBC W/AUTO [id number] 00:00:00 Test Item Value Reference Range Interpretation [...] NUCLEATED RBCS (test code = 0.00 K/UL 76340) CBC W/AUTO [id number] 00:00:00 Test Item Value Reference Range Interpretation [...] NUCLEATED RBCS (test code = 0.00 K/UL 27730) CBC W/AUTO [id number] 00:00:00 Test Item Value Reference Range Interpretation [...] NUCLEATED RBCS (test code = 0.00 K/UL 25620) HEMOGLOBIN [id number] 00:00:00 Test Item Value Reference Range Interpretation Comments HEMOGLOBIN A1c (test code = 86170) 5.5 % HEMOGLOBIN [id number] 00:00:00 Test Item Value Reference Range Interpretation Comments HEMOGLOBIN A1c (test code = 11150) 5.5 % HEMOGLOBIN [id number] 00:00:00 Test Item Value Reference Range Interpretation Comments HEMOGLOBIN A1c (test code = 72961) 5.5 % LIPID [id number] 00:00:00 Test Item Value Reference Range Interpretation Comments CHOLESTEROL (test code = 2210) 160 MG/DL TRIGLYCERIDES (test code = 2232) 237 MG/DL HDL CHOLESTEROL (test code = 2220) 41 MG/DL CALC LDL CHOL (test code = 2237) 86 MG/DL RISK RATIO LDL/HDL (test code = 2.10 RATIO 2238) LIPID [id number] 00:00:00 Test Item Value Reference Range Interpretation Comments CHOLESTEROL (test code = 2210) 160 MG/DL TRIGLYCERIDES (test code = 2232) 237 MG/DL HDL CHOLESTEROL (test code = 2220) 41 MG/DL CALC LDL CHOL (test code = 2237) 86 MG/DL RISK RATIO LDL/HDL (test code = 2.10 RATIO 2238) COMPREHENSIVE METABOLIC [id number] 00:00:00 Test Item Value Reference Range Interpretation Comments GLUCOSE (test code = 2217) 109 MG/DL BUN (test code = 2208) 12 MG/DL CREATININE (test code = 2214) 0.83 MG/DL eGFR AMER. (test code 98 ML/MIN/1.73 = 34420) eGFR NON- AMER. (test 85 ML/MIN/1.73 code = 32131) CALC BUN/CREAT (test code = 14 RATIO [...] code = 2219) 15 U/L COMPREHENSIVE METABOLIC [id number] 00:00:00 Test Item Value Reference Range Interpretation Comments GLUCOSE (test code = 2217) 109 MG/DL BUN (test code = 2208) 12 MG/DL CREATININE (test code = 2214) 0.83 MG/DL eGFR AMER. (test code 98 ML/MIN/1.73 = 08975) eGFR NON- AMER. (test 85 ML/MIN/1.73 code = 90094) CALC BUN/CREAT (test code = 14 RATIO [...] A/G RATIO (test code = 1.3 RATIO 4) BILIRUBIN, TOTAL (test code = <0.2 MG/DL 2206) ALKALINE PHOSPHATASE (test 99 U/L code = 2204) AST (test code = 2218) 17 U/L ALT (test code = 2219) 15 U/L [id number] 00:00:00 Test Item Value Reference Range Interpretation Comments TSH, THIRD GENERATION (test code 0.889 UIU/ML = 2821) [id number] 00:00:00 Test Item Value Reference Range Interpretation Comments TSH, THIRD GENERATION (test code 0.889 UIU/ML = 2821) [id number] 00:00:00 Test Item Value Reference Range Interpretation Comments TSH, THIRD GENERATION (test code 0.889 UIU/ML = 2821) VITAMIN D, 25 [id number] 00:00:00 Test Item Value Reference Range Interpretation Comments VITAMIN D, 25 OH (test code = 4958) 15 NG/ML VITAMIN D, 25 [id number] 00:00:00 Test Item Value Reference Range Interpretation Comments VITAMIN D, 25 OH (test code = 4958) 15 NG/ML PAP TEST, THINPREP, [id number] 00:00:00 Test Item Value Reference Range Interpretation Comments SOURCE: (test code = Cervical/Endocervical 8001) SLIDES: (test code = 1 8011) LMP: (test code = 8021) 06/06/2020 SPECIMEN ADEQUACY: (NOTE) (test code = 41743) INTERPRETATION: (test NILM/NO EPITH. code = 51422) ABNORMALITY;SEE BELOW TEXTILE SLITTING MACHINE OPERATOR: (test Vincent code = 8101) VALENTÍN Marquez(ASCP) LOCATION: (test code = (NOTE) 28235) CPT: (test code = 8140) (NOTE) HPV HIGH RISK WITH GENOTYPE, [id number] 00:00:00 Test Item Value Reference Range Interpretation Comments HPV HIGH RISK INTERP (test NEGATIVE code = 16690) HPV 16 (test code = 32616) TEST NOT PERFORMED HPV 18 (test code = 61927) TEST NOT PERFORMED HPV, HR, OTHER GENOTYPES TEST NOT PERFORMED (test code = 73604) PAP TEST, THINPREP, [id number] 00:00:00 Test Item Value Reference Range Interpretation Comments SOURCE: (test code = Cervical/Endocervical 8001) SLIDES: (test code = 1 8011) LMP: (test code = 8021) 06/06/2020 SPECIMEN ADEQUACY: (NOTE) (test code = 25941) INTERPRETATION: (test NILM/NO EPITH. code = 06181) ABNORMALITY;SEE BELOW TEXTILE SLITTING MACHINE OPERATOR: (test Vincent code = 8101) VALENTÍN Marquez(ASCP) LOCATION: (test code = (NOTE) 66867) CPT: (test code = 8140) (NOTE) PAP TEST, THINPREP, [id number] 00:00:00 Test Item Value Reference Range Interpretation Comments SOURCE: (test code = Cervical/Endocervical 8001) SLIDES: (test code = 1 8011) LMP: (test code = 8021) 06/06/2020 SPECIMEN ADEQUACY: (NOTE) (test code = 05061) INTERPRETATION: (test NILM/NO EPITH. code = 33940) ABNORMALITY;SEE BELOW TEXTILE SLITTING MACHINE OPERATOR: (test Vincent code = 8101) VALENTÍN Marquez(ASCP) LOCATION: (test code = (NOTE) 75512) CPT: (test code = 8140) (NOTE) HPV HIGH RISK WITH GENOTYPE, [id number] 00:00:00 Test Item Value Reference Range Interpretation Comments HPV HIGH RISK INTERP (test NEGATIVE code = 73310) HPV 16 (test code = 24019) TEST NOT PERFORMED HPV 18 (test code = 60678) TEST NOT PERFORMED HPV, HR, OTHER GENOTYPES TEST NOT PERFORMED (test code = 56339) HPV HIGH RISK WITH GENOTYPE, [id number] 00:00:00 Test Item Value Reference Range Interpretation Comments HPV HIGH RISK INTERP (test NEGATIVE code = 60950) HPV 16 (test code = 66253) TEST NOT PERFORMED HPV 18 (test code = 81611) TEST NOT PERFORMED HPV, HR, OTHER GENOTYPES TEST NOT PERFORMED (test code = 98732) PAP TEST, THINPREP, [id number] 00:00:00 Test Item Value Reference Range Interpretation Comments SOURCE: (test code = Cervical/Endocervical 8001) SLIDES: (test code = 1 8011) LMP: (test code = 8021) 06/06/2020 SPECIMEN ADEQUACY: (NOTE) (test code = 97258) INTERPRETATION: (test NILM/NO EPITH. code = 15436) ABNORMALITY;SEE BELOW TEXTILE SLITTING MACHINE OPERATOR: (test Vincent code = 8101) VALENTÍN Marquez(ASCP) LOCATION: (test code = (NOTE) 87590) CPT: (test code = 8140) (NOTE) PAP TEST, THINPREP, [id number] 00:00:00 Test Item Value Reference Range Interpretation Comments SOURCE: (test code = Cervical/Endocervical 8001) SLIDES: (test code = 1 8011) LMP: (test code = 8021) 06/06/2020 SPECIMEN ADEQUACY: (NOTE) (test code = 05009) INTERPRETATION: (test NILM/NO EPITH. code = 83430) ABNORMALITY;SEE BELOW TEXTILE SLITTING MACHINE OPERATOR: (test Vincent code = 8101) VALENTÍN Marquez(ASCP) LOCATION: (test code = (NOTE) 79776) CPT: (test code = 8140) (NOTE) HPV HIGH RISK WITH GENOTYPE, [id number] 00:00:00 Test Item Value Reference Range Interpretation Comments HPV HIGH RISK INTERP (test NEGATIVE code = 35138) HPV 16 (test code = 49837) TEST NOT PERFORMED HPV 18 (test code = 33811) TEST NOT PERFORMED HPV, HR, OTHER GENOTYPES TEST NOT PERFORMED (test code = 36735) HPV HIGH RISK WITH GENOTYPE, [id number] 00:00:00 Test Item Value Reference Range Interpretation Comments HPV HIGH RISK INTERP (test NEGATIVE code = 05161) HPV 16 (test code = 16555) TEST NOT PERFORMED HPV 18 (test code = 94019) TEST NOT PERFORMED HPV, HR, OTHER GENOTYPES TEST NOT PERFORMED (test code = 21266) HIV AB/AG COMBO RFLX [id number] 00:00:00 Test Item Value Reference Range Interpretation Comments HIV 1/2 4TH GEN, RFLX CONF (test NON-REACTIVE code = 3514) GC AND CHLAMYDIA AMPLIFIED, [id number] 00:00:00 Test Item Value Reference Range Interpretation Comments GONORRHEA, TMA (test code = 64062) NEGATIVE CHLAMYDIA, TMA (test code = 68597) NEGATIVE ACUTE HEPATITIS [id number] 00:00:00 Test Item Value Reference Range Interpretation Comments HEPATITIS A IgM (test code = NON-REACTIVE 84506) HEPATITIS B CORE IgM (test code NON-REACTIVE = 4644) HEPATITIS B SURF AG (test code = NON-REACTIVE 2739) HEPATITIS C ANTIBODY (test code NON-REACTIVE = 4675) INTERPRETATION HEPATITIS A: (NOTE) (test code = 2552) INTERPRETATION HEPATITIS B: (NOTE) (test code = 93615) INTERPRETATION HEPATITIS C: (NOTE) (test code = 01419) [id number] 00:00:00 Test Item Value Reference Range Interpretation Comments RPR RESULT (test code = NON-REACTIVE 3501) RPR TITER (test code = 3500) NOT INDIC. TITER [id number] 00:00:00 Test Item Value Reference Range Interpretation Comments RPR RESULT (test code = NON-REACTIVE 3501) RPR TITER (test code = 3500) NOT INDIC. TITER VAGINAL PATHOGENS DNA [id number] 00:00:00 Test Item Value Reference Range Interpretation Comments CATA SPECIES (test code = ) NEGATIVE G. VAGINALIS (test code = ) POSITIVE T. VAGINALIS (test code = ) NEGATIVE GC AND CHLAMYDIA AMPLIFIED, [id number] 00:00:00 Test Item Value Reference Range Interpretation Comments GONORRHEA, TMA (test code = 70825) NEGATIVE CHLAMYDIA, TMA (test code = 88019) NEGATIVE HIV AB/AG COMBO RFLX [id number] 00:00:00 Test Item Value Reference Range Interpretation Comments HIV 1/2 4TH GEN, RFLX CONF (test NON-REACTIVE code = 3514) GC AND CHLAMYDIA AMPLIFIED, [id number] 00:00:00 Test Item Value Reference Range Interpretation Comments GONORRHEA, TMA (test code = 00635) NEGATIVE CHLAMYDIA, TMA (test code = 44649) NEGATIVE HIV AB/AG COMBO RFLX [id number] 00:00:00 Test Item Value Reference Range Interpretation Comments HIV 1/2 4TH GEN, RFLX CONF (test NON-REACTIVE code = 3514) ACUTE HEPATITIS [id number] 00:00:00 Test Item Value Reference Range Interpretation Comments HEPATITIS A IgM (test code = NON-REACTIVE 45988) HEPATITIS B CORE IgM (test code NON-REACTIVE = 4644) HEPATITIS B SURF AG (test code = NON-REACTIVE 2739) HEPATITIS C ANTIBODY (test code NON-REACTIVE = 4675) INTERPRETATION HEPATITIS A: (NOTE) (test code = 2552) INTERPRETATION HEPATITIS B: (NOTE) (test code = 29464) INTERPRETATION HEPATITIS C: (NOTE) (test code = 16019) ACUTE HEPATITIS [id number] 00:00:00 Test Item Value Reference Range Interpretation Comments HEPATITIS A IgM (test code = NON-REACTIVE 67490) HEPATITIS B CORE IgM (test code NON-REACTIVE = 4644) HEPATITIS B SURF AG (test code = NON-REACTIVE 2739) HEPATITIS C ANTIBODY (test code NON-REACTIVE = 4675) INTERPRETATION HEPATITIS A: (NOTE) (test code = 2552) INTERPRETATION HEPATITIS B: (NOTE) (test code = 30015) INTERPRETATION HEPATITIS C: (NOTE) (test code = 33418) [id number] 00:00:00 Test Item Value Reference Range Interpretation Comments RPR RESULT (test code = NON-REACTIVE 3501) RPR TITER (test code = 3500) NOT INDIC. TITER [id number] 00:00:00 Test Item Value Reference Range Interpretation Comments RPR RESULT (test code = NON-REACTIVE 3501) RPR TITER (test code = 3500) NOT INDIC. TITER [id number] 00:00:00 Test Item Value Reference Range Interpretation Comments RPR RESULT (test code = NON-REACTIVE 3501) RPR TITER (test code = 3500) NOT INDIC. TITER VAGINAL PATHOGENS DNA [id number] 00:00:00 Test Item Value Reference Range Interpretation Comments CATA SPECIES (test code = ) NEGATIVE G. VAGINALIS (test code = 11714) POSITIVE T. VAGINALIS (test code = 75576) NEGATIVE VAGINAL PATHOGENS DNA [id number] 00:00:00 Test Item Value Reference Range Interpretation Comments CATA SPECIES (test code = ) NEGATIVE G. VAGINALIS (test code = 84569) POSITIVE T. VAGINALIS (test code = 87743) NEGATIVE HIV AB/AG COMBO RFLX [id number] 00:00:00 Test Item Value Reference Range Interpretation Comments HIV 1/2 4TH GEN, RFLX CONF (test NON-REACTIVE code = 3514) GC AND CHLAMYDIA AMPLIFIED, [id number] 00:00:00 Test Item Value Reference Range Interpretation Comments GONORRHEA, TMA (test code = 63124) NEGATIVE CHLAMYDIA, TMA (test code = 36921) NEGATIVE GC AND CHLAMYDIA AMPLIFIED, [id number] 00:00:00 Test Item Value Reference Range Interpretation Comments GONORRHEA, TMA (test code = 60473) NEGATIVE CHLAMYDIA, TMA (test code = 14808) NEGATIVE HIV AB/AG COMBO RFLX [id number] 00:00:00 Test Item Value Reference Range Interpretation Comments HIV 1/2 4TH GEN, RFLX CONF (test NON-REACTIVE code = 3514) ACUTE HEPATITIS [id number] 00:00:00 Test Item Value Reference Range Interpretation Comments HEPATITIS A IgM (test code = NON-REACTIVE 63354) HEPATITIS B CORE IgM (test code NON-REACTIVE = 4644) HEPATITIS B SURF AG (test code = NON-REACTIVE 4989) HEPATITIS C ANTIBODY (test code NON-REACTIVE = 2691) INTERPRETATION HEPATITIS A: (NOTE) (test code = 2552) INTERPRETATION HEPATITIS B: (NOTE) (test code = 33891) INTERPRETATION HEPATITIS C: (NOTE) (test code = 90694) ACUTE HEPATITIS [id number] 00:00:00 Test Item Value Reference Range Interpretation Comments HEPATITIS A IgM (test code = NON-REACTIVE 95124) HEPATITIS B CORE IgM (test code NON-REACTIVE = 4644) HEPATITIS B SURF AG (test code = NON-REACTIVE 2739) HEPATITIS C ANTIBODY (test code NON-REACTIVE = 4675) INTERPRETATION HEPATITIS A: (NOTE) (test code = 2552) INTERPRETATION HEPATITIS B: (NOTE) (test code = 48239) INTERPRETATION HEPATITIS C: (NOTE) (test code = 42902) [id number] 00:00:00 Test Item Value Reference Range Interpretation Comments RPR RESULT (test code = NON-REACTIVE 3501) RPR TITER (test code = 3500) NOT INDIC. TITER [id number] 00:00:00 Test Item Value Reference Range Interpretation Comments RPR RESULT (test code = NON-REACTIVE 3501) RPR TITER (test code = 3500) NOT INDIC. TITER [id number] 00:00:00 Test Item Value Reference Range Interpretation Comments RPR RESULT (test code = NON-REACTIVE 3501) RPR TITER (test code = 3500) NOT INDIC. TITER VAGINAL PATHOGENS DNA [id number] 00:00:00 Test Item Value Reference Range Interpretation Comments CATA SPECIES (test code = ) NEGATIVE G. VAGINALIS (test code = 27204) POSITIVE T. VAGINALIS (test code = 23055) NEGATIVE VAGINAL PATHOGENS DNA [id number] 00:00:00 Test Item Value Reference Range Interpretation Comments CATA SPECIES (test code = 47717) NEGATIVE G. VAGINALIS (test code = 12018) POSITIVE T. VAGINALIS (test code = 83545) NEGATIVE H. PYLORI AG, [id number] 00:00:00 Test Item Value Reference Range Interpretation Comments H. PYLORI AG, STOOL (test code = NEGATIVE 92442) H. PYLORI AG, [id number] 00:00:00 Test Item Value Reference Range Interpretation Comments H. PYLORI AG, STOOL (test code = NEGATIVE 00646) H. PYLORI AG, [id number] 00:00:00 Test Item Value Reference Range Interpretation Comments H. PYLORI AG, STOOL (test code = NEGATIVE 55925) H. PYLORI AG, [id number] 00:00:00 Test Item Value Reference Range Interpretation Comments H. PYLORI AG, STOOL (test code = NEGATIVE 06106) H. PYLORI AG, [id number] 00:00:00 Test Item Value Reference Range Interpretation Comments H. PYLORI AG, STOOL (test code = NEGATIVE 05310) COVID-19 (ID NOW RAPID TESTING)2020-02-02 23:10:00 Test Item Value Reference Range Interpretation Comments SARS-CoV-2 Rapid ID NOW Not Detected Not Detected (test code = 82638-5) TOMA (test code = TOMA) ID NOW COVID-19 Assay is an isothermal nucleic acid amplification test intended for the qualitative detection of nucleic acid from SARS-CoV-2 viral RNA in nasopharyngeal (CONTRACTING ENGINEER) specimens. It is used under Emergency [...] indicated. Lab Interpretation Normal (test code = 47549-5) [facility] Test Item Value Reference Range Interpretation Comments APPEARANCE (test code = Hazy Clear A 3806780587) COLOR (test code = Yellow Yellow 5339289001) PH (test code = 4.8-8.0 4414563766) SP GRAVITY (test code = 1.003-1.030 7196172825) GLU U QUAL (test code = Normal Normal 3553283779) BLOOD (test code = Negative Negative 0295565744) KETONES (test code = Negative Negative 7729255226) PROTEIN (test code = Negative Negative 2887-8) UROBILIN (test code = Normal Normal 3463528001) BILIRUBIN (test code = Negative Negative 8183159266) NITRITE (test code = Negative Negative 2221090608) LEUK CHARLES (test code = Negative Negative 0776591156) RBC/HPF (test code = See_Comment H [Autom ated message] 3199625890) The system Dig[employer] generated this result transmitted ref erence range: 0 - 3 HP F. The reference range was not used to int erpret this result as normal/abnormal . WBC/HPF (test code = See_Comment [Autom ated message] 1956906002) The system [employer] generated this result transmitted ref erence range: 0 - 5 HP F. The reference range was not used to int erpret this result as normal/abnormal . BACTERIA (test code = Few Negative A 9816892375) MUCOUS (test code = Moderate Negative LPF A 2305396687) SQ EPITH (test code = HPF 5983283537) HYAL CAST (test code = See_Comment [Aut omated message] 0625787147) The system [employer] generated this result transmitted ref erence range: <=2 LPF. The reference range was not used to int erpret this result as normal/abnormal . Lab Interpretation (test Abnormal code = 24390-4) [facility]OL[facility] PAN[facility] (16850)2020-02-02 22:52:00 Test Item Value Reference Range Interpretation Comments NA (test code = 140 mmol/L 135-145 8601355920) K (test code = 3.8 mmol/L 3.5-5 5839684882) CL (test code = 111 mmol/L 98-108 H 5446450888) CO2 TOTAL (test code = 20 mmol/L 23-31 L 6644116031) AGAP (test code = 2-16 3827126751) BUN (test code = 10 mg/dL 7-23 1613576582) GLUCOSE (test code = 94 mg/dL 70-110 3357492116) CREATININE (test code = 1.11 mg/dL 0.5-1.04 H 6500960513) TOTAL BILI (test code = 0.4 mg/dL 0.1-1.2 0479059640) CALCIUM (test code = 8.8 mg/dL 8.6-10.6 8626859754) T PROTEIN (test code = 8.4 g/dL 6.3-8.2 H 5623225727) ALBUMIN (test code = 4.4 g/dL 3.5-5 5014218209) ALK PHOS (test code = 97 U/L 34-122 8258655927) ALTv (test code = 36 U/L 5-35 H 1742-6) AST(SGOT) (test code = 44 U/L 13-40 H 7021600071) eGFR Calculation mL/min/1.73m2 (Non-) (test code = 6648020693) eGFR Calculation mL/min/1.73m2 () (test code = 4927618574) TOAM (test code = TOMA) Association of Glomerular [...] tests). Lab Interpretation Abnormal (test code = 46849-0) [facility] WO [id number] 22:35:331. No definite acute intra-abdominal or intrapelvic [...] carried out. COMPARISON: None Radiation Dose: DLP of501 mGy-cm. FINDINGS: Small focus of atelectasis is [...] seen in the inferior pole of the leftkidney. Nohydronephrosis is noted. Abdominal aorta is normal in caliber. No free fluid or free air isidentified in the abdomen. No enlarged lymph nodes are seen in theretroperitoneum or mesentery. Bowel loops are normal in caliber. There is no evidence of bowelobstruction. The appendix is not visualized and may have been removed. Afew scattered diverticula are seen in the descending colon. The uterusis somewhat lobular in appearance. A small low attenuationmasses present on the right side of the fundal portion of the uterusmeasuring approximately 1 cm. The urinary bladder is decompressed and isnotadequately evaluated. The ovaries appear grossly normal. No [...] small low attenuationmasses present on the right sideof the fundal portion of the uterusmeasuring approximately 1 cm. The urinary bladder is decompressedand isnot adequately evaluated. The ovaries appear grossly normal. No free fluidis seen within the pelvis.No suspicious abnormality of the bones is seen.IMPRESSION1. No definite acute intra-abdominal or intrapelvic pathology on thislimited noncontrast study.2. Left nephrolithiasis without evidence of hydronephrosis. Changes ofright nephrectomy3. Diverticulosis of the colon without evidence of diverticulitis4. Hepatic steatosis5. [facility] 2020-02-02 22:29:00 Test Item Value Reference Range Interpretation Comments WBC (test code = See_Comment [Automated message] 6690-2) The system Dig[employer] generated this result transmitted ref erence range: 4.30 - 1 1.10 10*3/?L. The re ference range was not u sed to interpret this result as normal/abnor mal. RBC (test code = See_Comment [Automated message] 789-8) The system Dig[employer] generated this result transmitted ref erence range: [...] RDW-SD (test code 45.1 fL 39-49.9 = 84057-6) RDW-CV (test code 14.2 % 12-15.5 = 788-0) PLT (test code = See_Comment [Automated message] 777-3) The system Dig[employer] generated this result transmitted ref erence range: 166 - 35 8 10*3/?L. The re ference range was not u sed to interpret this result as normal/abnor mal. MPV (test code = 9.7 fL 9.5-12.9 84500-7) NRBC/100 WBC (test See_Comment [Automat ed message] code = 2692260544) The syste m which generated this result transmitted ref erence range: 0.0 - 10 .0 /100 WBCs. The refer ence range was not u sed to interpret this result as normal/abnor mal. NRBC x10^3 (test <0.01 See_Comment [Automated message] code = 6454687258) The syste m which generated this result transmitted ref erence range: 10*3/?L. The reference range was not used to interpr et this result as normal/abnormal . GRAN MAT (NEUT) % 59.9 % (test code = 770-8) IMM GRAN % (test 0.50 % code = 8798359029) LYMPH % (test code 29.0 % = 736-9) MONO % (test code 9.4 % = 5905-5) EOS % (test code = 0.9 % 713-8) BASO % (test code 0.3 % = 706-2) GRAN MAT 4.70 10*3/uL 1.88-7.09 x10^3(ANC) (test code = 4442992248) IMM GRAN x10^3 0.04 10*3/uL 0-0.06 (test code = 6977114672) LYMPH x10^3 (test 2.28 10*3/uL 1.32-3.29 code = 731-0) MONO x10^3 (test 0.74 10*3/uL 0.33-0.92 code = 742-7) EOS x10^3 (test 0.07 10*3/uL 0.03-0.39 code = 711-2) BASO x10^3 (test <0.03 0.01-0.07 code = 704-7) [facility]ST 1 VW [id number] 22:28:10 1. Abnormal changes in the right upper lobe suggestive of pneumonia,including COVID-19 pneumonia. Disclaimer: Generally, the findings on chest imaging in COVID-19 are notspecific, and overlap with other infections, including influenza, H1N1,SARS and MERS.According to the Centers for Disease Control (CDC) and the [employer], viral testing remains the only [...] Centers for Disease Control (CDC) and the [place] [employer], viral testing remains the only specific method of diagnosiseven if CXR or CT findings aresuggestive of COVID-19.[facility] Antonio[facility] [id number] 21:58:00 Test Item Value Reference Range Interpretation Comments POCT PREG (test code = 1605) negative On board controls acceptable with present C Line (test code = 3574) POCT PREG LOT # (test code = 3575) [id number] POCT PREG TEST DATE (test 02-13-2021 code = 3576) Lab Interpretation (test code = Normal 44427-8) [facility] [id number] 00:00:00 Test Item Value Reference Range Interpretation Comments HEMOGLOBIN A1c (test code = 06750) 5.5 % HEMOGLOBIN [id number] 00:00:00 Test Item Value Reference Range Interpretation Comments HEMOGLOBIN A1c (test code = 54826) 5.5 % LIPID [id number] 00:00:00 Test Item Value Reference Range Interpretation Comments CHOLESTEROL (test code = 2210) 168 MG/DL TRIGLYCERIDES (test code = 2232) 143 MG/DL HDL CHOLESTEROL (test code = 2220) 57 MG/DL CALC LDL CHOL (test code = 2237) 87 MG/DL RISK RATIO LDL/HDL (test code = 1.53 RATIO 2238) COMPREHENSIVE METABOLIC [id number] 00:00:00 Test Item Value Reference Range Interpretation Comments GLUCOSE (test code = 2217) 93 MG/DL BUN (test code = 2208) 9 MG/DL CREATININE (test code = 2214) 0.86 MG/DL eGFR AMER. (test code 95 ML/MIN/1.73 = 21742) eGFR NON- AMER. (test 82 ML/MIN/1.73 code = 17164) CALC BUN/CREAT (test code = 10 RATIO [...] (test code = 2219) 30 U/L HEMOGLOBIN [id number] 00:00:00 Test Item Value Reference Range Interpretation Comments HEMOGLOBIN A1c (test code = 55753) 5.5 % HEMOGLOBIN [id number] 00:00:00 Test Item Value Reference Range Interpretation Comments HEMOGLOBIN A1c (test code = 01826) 5.5 % HEMOGLOBIN [id number] 00:00:00 Test Item Value Reference Range Interpretation Comments HEMOGLOBIN A1c (test code = 12699) 5.5 % LIPID [id number] 00:00:00 Test Item Value Reference Range Interpretation Comments CHOLESTEROL (test code = 2210) 168 MG/DL TRIGLYCERIDES (test code = 2232) 143 MG/DL HDL CHOLESTEROL (test code = 2220) 57 MG/DL CALC LDL CHOL (test code = 2237) 87 MG/DL RISK RATIO LDL/HDL (test code = 1.53 RATIO 2238) LIPID [id number] 00:00:00 Test Item Value Reference Range Interpretation Comments CHOLESTEROL (test code = 2210) 168 MG/DL TRIGLYCERIDES (test code = 2232) 143 MG/DL HDL CHOLESTEROL (test code = 2220) 57 MG/DL CALC LDL CHOL (test code = 2237) 87 MG/DL RISK RATIO LDL/HDL (test code = 1.53 RATIO 2238) COMPREHENSIVE METABOLIC [id number] 00:00:00 Test Item Value Reference Range Interpretation Comments GLUCOSE (test code = 2217) 93 MG/DL BUN (test code = 2208) 9 MG/DL CREATININE (test code = 2214) 0.86 MG/DL eGFR AMER. (test code 95 ML/MIN/1.73 = 86532) eGFR NON- AMER. (test 82 ML/MIN/1.73 code = 12864) CALC BUN/CREAT (test code = 10 RATIO [...] code = 2219) 30 U/L COMPREHENSIVE METABOLIC [id number] 00:00:00 Test Item Value Reference Range Interpretation Comments GLUCOSE (test code = 2217) 93 MG/DL BUN (test code = 2207) 9 MG/DL CREATININE (test code = 2214) 0.86 MG/DL eGFR AMER. (test code 95 ML/MIN/1.73 = 20841) eGFR NON- AMER. (test 82 ML/MIN/1.73 code = 46116) CALC BUN/CREAT (test code = 10 RATIO 2234) SODIUM (test code = 2231) 140 MEQ/L [...] (test code = 2219) 30 U/L HEMOGLOBIN [id number] 00:00:00 Test Item Value Reference Range Interpretation Comments HEMOGLOBIN A1c (test code = 90688) 5.5 % HEMOGLOBIN [id number] 00:00:00 Test Item Value Reference Range Interpretation Comments HEMOGLOBIN A1c (test code = 77312) 5.5 % HEMOGLOBIN [id number] 00:00:00 Test Item Value Reference Range Interpretation Comments HEMOGLOBIN A1c (test code = 15233) 5.5 % LIPID [id number] 00:00:00 Test Item Value Reference Range Interpretation Comments CHOLESTEROL (test code = 2210) 168 MG/DL TRIGLYCERIDES (test code = 2232) 143 MG/DL HDL CHOLESTEROL (test code = 2220) 57 MG/DL CALC LDL CHOL (test code = 2237) 87 MG/DL RISK RATIO LDL/HDL (test code = 1.53 RATIO 2238) LIPID [id number] 00:00:00 Test Item Value Reference Range Interpretation Comments CHOLESTEROL (test code = 2210) 168 MG/DL TRIGLYCERIDES (test code = 2232) 143 MG/DL HDL CHOLESTEROL (test code = 2220) 57 MG/DL CALC LDL CHOL (test code = 2237) 87 MG/DL RISK RATIO LDL/HDL (test code = 1.53 RATIO 2238) COMPREHENSIVE METABOLIC [id number] 00:00:00 Test Item Value Reference Range Interpretation Comments GLUCOSE (test code = 2217) 93 MG/DL BUN (test code = 2208) 9 MG/DL CREATININE (test code = 2214) 0.86 MG/DL eGFR AMER. (test code 95 ML/MIN/1.73 = 39441) eGFR NON- AMER. (test 82 ML/MIN/1.73 code = 99707) CALC BUN/CREAT (test code = 10 RATIO [...] = <0.2 MG/DL 2207) ALKALINE PHOSPHATASE (test 94 U/L code = 2204) AST (test code = 2218) 24 U/L ALT (test code = 2219) 30 U/L COMPREHENSIVE METABOLIC [id number] 00:00:00 Test Item Value Reference Range Interpretation Comments GLUCOSE (test code = 2217) 93 MG/DL BUN (test code = 2208) 9 MG/DL CREATININE (test code = 2214) 0.86 MG/DL eGFR AMER. (test code 95 ML/MIN/1.73 = 87272) eGFR NON- AMER. (test 82 ML/MIN/1.73 code = 27618) CALC BUN/CREAT (test code = 10 RATIO 2235) SODIUM (test code = 2231) 140 MEQ/L POTASSIUM (test code = 2228) 4.2 MEQ/L CHLORIDE (test code = 2215) 101 MEQ/L CARBON DIOXIDE (test code = 25 MEQ/L 220) CALCIUM (test code = 2209) 9.3 MG/DL [...] code = 2219) 30 U/L CBC W/AUTO [id number] 00:00:00 Test Item Value Reference Range Interpretation [...] code = 1015) 374 K/UL CBC W/AUTO [id number] 00:00:00 Test Item Value Reference Range Interpretation [...] code = 1015) 374 K/UL COMPREHENSIVE METABOLIC [id number] 00:00:00 Test Item Value Reference Range Interpretation Comments GLUCOSE (test code = 2217) 86 MG/DL BUN (test code = 2208) 8 MG/DL CREATININE (test code = 2214) 0.93 MG/DL eGFR AMER. (test code 87 ML/MIN/1.73 = 56907) eGFR NON- AMER. (test 75 ML/MIN/1.73 code = 81425) CALC BUN/CREAT (test code = 9 RATIO [...] (test code = 2219) 19 U/L LIPID [id number] 00:00:00 Test Item Value Reference Range Interpretation Comments CHOLESTEROL (test code = 2210) 181 MG/DL TRIGLYCERIDES (test code = 2232) 291 MG/DL HDL CHOLESTEROL (test code = 2220) 42 MG/DL CALC LDL CHOL (test code = 2237) 81 MG/DL RISK RATIO LDL/HDL (test code = 1.92 RATIO 2238) CBC W/AUTO [id number] 00:00:00 Test Item Value Reference Range Interpretation [...] code = 1015) 374 K/UL CBC W/AUTO [id number] 00:00:00 Test Item Value Reference Range Interpretation [...] code = 1015) 374 K/UL CBC W/AUTO [id number] 00:00:00 Test Item Value Reference Range Interpretation [...] code = 1015) 374 K/UL COMPREHENSIVE METABOLIC [id number] 00:00:00 Test Item Value Reference Range Interpretation Comments GLUCOSE (test code = 2217) 86 MG/DL BUN (test code = 2208) 8 MG/DL CREATININE (test code = 2214) 0.93 MG/DL eGFR AMER. (test code 87 ML/MIN/1.73 = 37443) eGFR NON- AMER. (test 75 ML/MIN/1.73 code = 48724) CALC BUN/CREAT (test code = 9 RATIO [...] code = 2219) 19 U/L COMPREHENSIVE METABOLIC [id number] 00:00:00 Test Item Value Reference Range Interpretation Comments GLUCOSE (test code = 2217) 86 MG/DL BUN (test code = 2208) 8 MG/DL CREATININE (test code = 2214) 0.93 MG/DL eGFR AMER. (test code 87 ML/MIN/1.73 = 69631) eGFR NON- AMER. (test 75 ML/MIN/1.73 code = 74320) CALC BUN/CREAT (test code = 9 RATIO [...] (test code = 2219) 19 U/L LIPID [id number] 00:00:00 Test Item Value Reference Range Interpretation Comments CHOLESTEROL (test code = 2210) 181 MG/DL TRIGLYCERIDES (test code = 2232) 291 MG/DL HDL CHOLESTEROL (test code = 2220) 42 MG/DL CALC LDL CHOL (test code = 2237) 81 MG/DL RISK RATIO LDL/HDL (test code = 1.92 RATIO 2238) LIPID [id number] 00:00:00 Test Item Value Reference Range Interpretation Comments CHOLESTEROL (test code = 2210) 181 MG/DL TRIGLYCERIDES (test code = 2232) 291 MG/DL HDL CHOLESTEROL (test code = 2220) 42 MG/DL CALC LDL CHOL (test code = 2237) 81 MG/DL RISK RATIO LDL/HDL (test code = 1.92 RATIO 2238) CBC W/AUTO [id number] 00:00:00 Test Item Value Reference Range Interpretation [...] code = 1015) 374 K/UL CBC W/AUTO [id number] 00:00:00 Test Item Value Reference Range Interpretation [...] code = 1015) 374 K/UL CBC W/AUTO [id number] 00:00:00 Test Item Value Reference Range Interpretation [...] code = 1015) 374 K/UL COMPREHENSIVE METABOLIC [id number] 00:00:00 Test Item Value Reference Range Interpretation Comments GLUCOSE (test code = 2217) 86 MG/DL BUN (test code = 2208) 8 MG/DL CREATININE (test code = 2214) 0.93 MG/DL eGFR AMER. (test code 87 ML/MIN/1.73 = 78702) eGFR NON- AMER. (test 75 ML/MIN/1.73 code = 53325) CALC BUN/CREAT (test code = 9 RATIO [...] code = 2219) 19 U/L COMPREHENSIVE METABOLIC [id number] 00:00:00 Test Item Value Reference Range Interpretation Comments GLUCOSE (test code = 2217) 86 MG/DL BUN (test code = 2208) 8 MG/DL CREATININE (test code = 2214) 0.93 MG/DL eGFR AMER. (test code 87 ML/MIN/1.73 = 99681) eGFR NON- AMER. (test 75 ML/MIN/1.73 code = 56427) CALC BUN/CREAT (test code = 9 RATIO [...] (test code = 2219) 19 U/L LIPID [id number] 00:00:00 Test Item Value Reference Range Interpretation Comments CHOLESTEROL (test code = 2210) 181 MG/DL TRIGLYCERIDES (test code = 2232) 291 MG/DL HDL CHOLESTEROL (test code = 2220) 42 MG/DL CALC LDL CHOL (test code = 2237) 81 MG/DL RISK RATIO LDL/HDL (test code = 1.92 RATIO 2238) LIPID [id number] 00:00:00 Test Item Value Reference Range Interpretation Comments CHOLESTEROL (test code = 2210) 181 MG/DL TRIGLYCERIDES (test code = 2232) 291 MG/DL HDL CHOLESTEROL (test code = 2220) 42 MG/DL CALC LDL CHOL (test code = 2237) 81 MG/DL RISK RATIO LDL/HDL (test code = 1.92 RATIO 2238) HIV AB/AG COMBO RFLX [id number] 00:00:00 Test Item Value Reference Range Interpretation Comments HIV 1/2 4TH GEN, RFLX CONF (test NON-REACTIVE code = 3514) ACUTE HEPATITIS [id number] 00:00:00 Test Item Value Reference Range Interpretation Comments HEPATITIS A IgM (test code = NON-REACTIVE 07582) HEPATITIS B CORE IgM (test code NON-REACTIVE = 6944) HEPATITIS B SURF AG (test code = NON-REACTIVE 4079) HEPATITIS C ANTIBODY (test code NON-REACTIVE = 0975) HCV INDEX (test code = 59542) 0.11 INTERPRETATION HEPATITIS A: (NOTE) (test code = 2552) INTERPRETATION HEPATITIS B: (NOTE) (test code = 48505) INTERPRETATION HEPATITIS C: (NOTE) (test code = 79511) [id number] 00:00:00 Test Item Value Reference Range Interpretation Comments RPR RESULT (test code = NON-REACTIVE 3501) RPR TITER (test code = 3500) NOT INDIC. TITER [id number] 00:00:00 Test Item Value Reference Range Interpretation Comments RPR RESULT (test code = NON-REACTIVE 3501) RPR TITER (test code = 3500) NOT INDIC. TITER GC AND CHLAMYDIA, AMPLIFIED, [id number] 00:00:00 Test Item Value Reference Range Interpretation Comments GONORRHEA, TMA (test code = 48752) NEGATIVE CHLAMYDIA, TMA (test code = 50859) NEGATIVE HIV AB/AG COMBO RFLX [id number] 00:00:00 Test Item Value Reference Range Interpretation Comments HIV 1/2 4TH GEN, RFLX CONF (test NON-REACTIVE code = 3514) HIV AB/AG COMBO RFLX [id number] 00:00:00 Test Item Value Reference Range Interpretation Comments HIV 1/2 4TH GEN, RFLX CONF (test NON-REACTIVE code = 3514) ACUTE HEPATITIS [id number] 00:00:00 Test Item Value Reference Range Interpretation Comments HEPATITIS A IgM (test code = NON-REACTIVE 06700) HEPATITIS B CORE IgM (test code NON-REACTIVE = 4644) HEPATITIS B SURF AG (test code = NON-REACTIVE 2739) HEPATITIS C ANTIBODY (test code NON-REACTIVE = 4675) HCV INDEX (test code = 68071) 0.11 INTERPRETATION HEPATITIS A: (NOTE) (test code = 2552) INTERPRETATION HEPATITIS B: (NOTE) (test code = 65477) INTERPRETATION HEPATITIS C: (NOTE) (test code = 23441) ACUTE HEPATITIS [id number] 00:00:00 Test Item Value Reference Range Interpretation Comments HEPATITIS A IgM (test code = NON-REACTIVE 32473) HEPATITIS B CORE IgM (test code NON-REACTIVE = 4644) HEPATITIS B SURF AG (test code = NON-REACTIVE 2739) HEPATITIS C ANTIBODY (test code NON-REACTIVE = 4675) HCV INDEX (test code = 39752) 0.11 INTERPRETATION HEPATITIS A: (NOTE) (test code = 2552) INTERPRETATION HEPATITIS B: (NOTE) (test code = 17497) INTERPRETATION HEPATITIS C: (NOTE) (test code = 12694) [id number] 00:00:00 Test Item Value Reference Range Interpretation Comments RPR RESULT (test code = NON-REACTIVE 3501) RPR TITER (test code = 3500) NOT INDIC. TITER [id number] 00:00:00 Test Item Value Reference Range Interpretation Comments RPR RESULT (test code = NON-REACTIVE 3501) RPR TITER (test code = 3500) NOT INDIC. TITER [id number] 00:00:00 Test Item Value Reference Range Interpretation Comments RPR RESULT (test code = NON-REACTIVE 3501) RPR TITER (test code = 3500) NOT INDIC. TITER GC AND CHLAMYDIA, AMPLIFIED, [id number] 00:00:00 Test Item Value Reference Range Interpretation Comments GONORRHEA, TMA (test code = 90332) NEGATIVE CHLAMYDIA, TMA (test code = 72137) NEGATIVE GC AND CHLAMYDIA, AMPLIFIED, [id number] 00:00:00 Test Item Value Reference Range Interpretation Comments GONORRHEA, TMA (test code = 36606) NEGATIVE CHLAMYDIA, TMA (test code = 85623) NEGATIVE HIV AB/AG COMBO RFLX [id number] 00:00:00 Test Item Value Reference Range Interpretation Comments HIV 1/2 4TH GEN, RFLX CONF (test NON-REACTIVE code = 3514) HIV AB/AG COMBO RFLX [id number] 00:00:00 Test Item Value Reference Range Interpretation Comments HIV 1/2 4TH GEN, RFLX CONF (test NON-REACTIVE code = 3514) ACUTE HEPATITIS [id number] 00:00:00 Test Item Value Reference Range Interpretation Comments HEPATITIS A IgM (test code = NON-REACTIVE 16622) HEPATITIS B CORE IgM (test code NON-REACTIVE = 4644) HEPATITIS B SURF AG (test code = NON-REACTIVE 2739) HEPATITIS C ANTIBODY (test code NON-REACTIVE = 4675) HCV INDEX (test code = 37846) 0.11 INTERPRETATION HEPATITIS A: (NOTE) (test code = 2552) INTERPRETATION HEPATITIS B: (NOTE) (test code = 77591) INTERPRETATION HEPATITIS C: (NOTE) (test code = 32424) ACUTE HEPATITIS [id number] 00:00:00 Test Item Value Reference Range Interpretation Comments HEPATITIS A IgM (test code = NON-REACTIVE 09937) HEPATITIS B CORE IgM (test code NON-REACTIVE = 4644) HEPATITIS B SURF AG (test code = NON-REACTIVE 2739) HEPATITIS C ANTIBODY (test code NON-REACTIVE = 4675) HCV INDEX (test code = 77242) 0.11 INTERPRETATION HEPATITIS A: (NOTE) (test code = 2552) INTERPRETATION HEPATITIS B: (NOTE) (test code = 36101) INTERPRETATION HEPATITIS C: (NOTE) (test code = 25952) [id number] 00:00:00 Test Item Value Reference Range Interpretation Comments RPR RESULT (test code = NON-REACTIVE 3501) RPR TITER (test code = 3500) NOT INDIC. TITER [id number] 00:00:00 Test Item Value Reference Range Interpretation Comments RPR RESULT (test code = NON-REACTIVE 3501) RPR TITER (test code = 3500) NOT INDIC. TITER [id number] 00:00:00 Test Item Value Reference Range Interpretation Comments RPR RESULT (test code = NON-REACTIVE 3501) RPR TITER (test code = 3500) NOT INDIC. TITER GC AND CHLAMYDIA, AMPLIFIED, [id number] 00:00:00 Test Item Value Reference Range Interpretation Comments GONORRHEA, TMA (test code = 08707) NEGATIVE CHLAMYDIA, TMA (test code = 86385) NEGATIVE GC AND CHLAMYDIA, AMPLIFIED, [id number] 00:00:00 Test Item Value Reference Range Interpretation Comments GONORRHEA, TMA (test code = 29215) NEGATIVE CHLAMYDIA, TMA (test code = 36625) NEGATIVE CBC W/AUTO [id number] 00:00:00 Test Item Value Reference Range Interpretation [...] code = 1015) 374 K/UL CBC W/AUTO [id number] 00:00:00 Test Item Value Reference Range Interpretation [...] code = 1015) 374 K/UL COMPREHENSIVE METABOLIC [id number] 00:00:00 Test Item Value Reference Range Interpretation Comments GLUCOSE (test code = 2217) 96 MG/DL BUN (test code = 2208) 9 MG/DL CREATININE (test code = 2214) 0.73 MG/DL eGFR AMER. (test code 117 ML/MIN/1.73 = 62233) eGFR NON- AMER. (test 101 ML/MIN/1.73 code = 69301) CALC BUN/CREAT (test code = 12 RATIO 2235) SODIUM (test code = 2231) 144 MEQ/L POTASSIUM (test code = 2228) 4.0 MEQ/L CHLORIDE (test code = 2215) 104 MEQ/L CARBON DIOXIDE (test code = 23 MEQ/L 220) CALCIUM (test code = 2209) 9.5 MG/DL PROTEIN, TOTAL (test code = 7.8 G/DL 2228) ALBUMIN (test code = 2201) 4.6 G/DL CALC GLOBULIN (test code = 3.2 G/DL 224) CALC A/G RATIO (test code = 1.4 RATIO 223) BILIRUBIN, TOTAL (test code = <0.2 MG/DL 2206) ALKALINE PHOSPHATASE (test 105 U/L code = 2204) AST (test code = 2218) 18 U/L ALT (test code = 2219) 16 U/L LIPID [id number] 00:00:00 Test Item Value Reference Range Interpretation Comments CHOLESTEROL (test code = 2210) 188 MG/DL TRIGLYCERIDES (test code = 2232) 162 MG/DL HDL CHOLESTEROL (test code = 2220) 48 MG/DL CALC LDL CHOL (test code = 2237) 108 MG/DL RISK RATIO LDL/HDL (test code = 2.24 RATIO 2238) [id number] 00:00:00 Test Item Value Reference Range Interpretation Comments TSH, THIRD GENERATION (test code 1.150 UIU/ML = 2821) [id number] 00:00:00 Test Item Value Reference Range Interpretation Comments TSH, THIRD GENERATION (test code 1.150 UIU/ML = 2821) HEMOGLOBIN [id number] 00:00:00 Test Item Value Reference Range Interpretation Comments HEMOGLOBIN A1c (test code = 12914) 5.4 % HEMOGLOBIN [id number] 00:00:00 Test Item Value Reference Range Interpretation Comments HEMOGLOBIN A1c (test code = 22680) 5.4 % CBC W/AUTO [id number] 00:00:00 Test Item Value Reference Range Interpretation [...] code = 1015) 374 K/UL CBC W/AUTO [id number] 00:00:00 Test Item Value Reference Range Interpretation [...] code = 1015) 374 K/UL CBC W/AUTO [id number] 00:00:00 Test Item Value Reference Range Interpretation [...] code = 1015) 374 K/UL COMPREHENSIVE METABOLIC [id number] 00:00:00 Test Item Value Reference Range Interpretation Comments GLUCOSE (test code = 2217) 96 MG/DL BUN (test code = 2208) 9 MG/DL CREATININE (test code = 2214) 0.73 MG/DL eGFR AMER. (test code 117 ML/MIN/1.73 = 93995) eGFR NON- AMER. (test 101 ML/MIN/1.73 code = 31329) CALC BUN/CREAT (test code = 12 RATIO [...] code = 2219) 16 U/L COMPREHENSIVE METABOLIC [id number] 00:00:00 Test Item Value Reference Range Interpretation Comments GLUCOSE (test code = 2217) 96 MG/DL BUN (test code = 2208) 9 MG/DL CREATININE (test code = 2214) 0.73 MG/DL eGFR AMER. (test code 117 ML/MIN/1.73 = 34702) eGFR NON- AMER. (test 101 ML/MIN/1.73 code = 72280) CALC BUN/CREAT (test code = 12 RATIO 2235) SODIUM (test code = 2231) 144 MEQ/L POTASSIUM (test code = 2228) 4.0 MEQ/L CHLORIDE (test code = 2215) 104 MEQ/L CARBON DIOXIDE (test code = 23 MEQ/L 6) CALCIUM (test code = 2209) 9.5 MG/DL [...] (test code = 2219) 16 U/L LIPID [id number] 00:00:00 Test Item Value Reference Range Interpretation Comments CHOLESTEROL (test code = 2210) 188 MG/DL TRIGLYCERIDES (test code = 2232) 162 MG/DL HDL CHOLESTEROL (test code = 2220) 48 MG/DL CALC LDL CHOL (test code = 2237) 108 MG/DL RISK RATIO LDL/HDL (test code = 2.24 RATIO 2238) LIPID [id number] 00:00:00 Test Item Value Reference Range Interpretation Comments CHOLESTEROL (test code = 2210) 188 MG/DL TRIGLYCERIDES (test code = 2232) 162 MG/DL HDL CHOLESTEROL (test code = 2220) 48 MG/DL CALC LDL CHOL (test code = 2237) 108 MG/DL RISK RATIO LDL/HDL (test code = 2.24 RATIO 2238) [id number] 00:00:00 Test Item Value Reference Range Interpretation Comments TSH, THIRD GENERATION (test code 1.150 UIU/ML = 2821) [id number] 00:00:00 Test Item Value Reference Range Interpretation Comments TSH, THIRD GENERATION (test code 1.150 UIU/ML = 2821) [id number] 00:00:00 Test Item Value Reference Range Interpretation Comments TSH, THIRD GENERATION (test code 1.150 UIU/ML = 2821) HEMOGLOBIN [id number] 00:00:00 Test Item Value Reference Range Interpretation Comments HEMOGLOBIN A1c (test code = 97662) 5.4 % HEMOGLOBIN [id number] 00:00:00 Test Item Value Reference Range Interpretation Comments HEMOGLOBIN A1c (test code = 69375) 5.4 % HEMOGLOBIN [id number] 00:00:00 Test Item Value Reference Range Interpretation Comments HEMOGLOBIN A1c (test code = 72611) 5.4 % CBC W/AUTO [id number] 00:00:00 Test Item Value Reference Range Interpretation [...] code = 1015) 374 K/UL CBC W/AUTO [id number] 00:00:00 Test Item Value Reference Range Interpretation [...] code = 1015) 374 K/UL CBC W/AUTO [id number] 00:00:00 Test Item Value Reference Range Interpretation [...] code = 1015) 374 K/UL COMPREHENSIVE METABOLIC [id number] 00:00:00 Test Item Value Reference Range Interpretation Comments GLUCOSE (test code = 2217) 96 MG/DL BUN (test code = 2208) 9 MG/DL CREATININE (test code = 2214) 0.73 MG/DL eGFR AMER. (test code 117 ML/MIN/1.73 = 03730) eGFR NON- AMER. (test 101 ML/MIN/1.73 code = 47030) CALC BUN/CREAT (test code = 12 RATIO [...] code = 2219) 16 U/L COMPREHENSIVE METABOLIC [id number] 00:00:00 Test Item Value Reference Range Interpretation Comments GLUCOSE (test code = 2217) 96 MG/DL BUN (test code = 2208) 9 MG/DL CREATININE (test code = 2214) 0.73 MG/DL eGFR AMER. (test code 117 ML/MIN/1.73 = 90309) eGFR NON- AMER. (test 101 ML/MIN/1.73 code = 75737) CALC BUN/CREAT (test code = 12 RATIO [...] (test code = 2219) 16 U/L LIPID [id number] 00:00:00 Test Item Value Reference Range Interpretation Comments CHOLESTEROL (test code = 2210) 188 MG/DL TRIGLYCERIDES (test code = 2232) 162 MG/DL HDL CHOLESTEROL (test code = 2220) 48 MG/DL CALC LDL CHOL (test code = 2237) 108 MG/DL RISK RATIO LDL/HDL (test code = 2.24 RATIO 2238) LIPID [id number] 00:00:00 Test Item Value Reference Range Interpretation Comments CHOLESTEROL (test code = 2210) 188 MG/DL TRIGLYCERIDES (test code = 2232) 162 MG/DL HDL CHOLESTEROL (test code = 2220) 48 MG/DL CALC LDL CHOL (test code = 2237) 108 MG/DL RISK RATIO LDL/HDL (test code = 2.24 RATIO 2238) [id number] 00:00:00 Test Item Value Reference Range Interpretation Comments TSH, THIRD GENERATION (test code 1.150 UIU/ML = 2821) [id number] 00:00:00 Test Item Value Reference Range Interpretation Comments TSH, THIRD GENERATION (test code 1.150 UIU/ML = 2821) [id number] 00:00:00 Test Item Value Reference Range Interpretation Comments TSH, THIRD GENERATION (test code 1.150 UIU/ML = 2821) HEMOGLOBIN [id number] 00:00:00 Test Item Value Reference Range Interpretation Comments HEMOGLOBIN A1c (test code = 61370) 5.4 % HEMOGLOBIN [id number] 00:00:00 Test Item Value Reference Range Interpretation Comments HEMOGLOBIN A1c (test code = 26230) 5.4 % HEMOGLOBIN [id number] 00:00:00 Test Item Value Reference Range Interpretation Comments HEMOGLOBIN A1c (test code = 58248) 5.4 %"
[2023-05-09] MEDS ORDERED: DIPHENHYDRAMINE 50 MG/ML VIAL ONE (08:38)
[2023-05-09] MEDS ORDERED: PROMETHAZINE INJ 25 MG/ML AMP ONE (08:38)
[2023-05-09] MEDS ORDERED: dexAMETHasone 10 MG/ML VIAL ONE (08:39)
[2023-05-09] MEDS ORDERED: NA CHLORIDE 0.9% 1,000 ML ONE (08:39)
[2023-05-09] MEDS ORDERED: ACETAMINOPHEN 500 MG TAB ONE (08:55)
--- NOTE | 2023-05-09 09:16 | EDPHYS ---
Physician Documentation [facility] Name: Yissel Carmona Age: 47 yrs Sex: Female : 1975 Arrival Date: 05/09/2023 Time: 08:00 Bed 7 Private MD: HEATHER Physician Yasmani Calvillo HPI: 05/09 08:04 This 47 yrs old Female presents to ER via Unassigned with complaints of jh7 Migraine, Nausea/Vomiting. 08:04 Onset: The symptoms/episode began/occurred last night. Associated signs and symptoms: jh7 Pertinent positives: headache, vomiting, Pertinent negatives: abdominal pain, chest pain, fever, shortness of breath. The patient has experienced similar episodes in the past, chronically, and the symptoms today are exactly the same, to previous migraine. Historical: - Allergies: 08:18 Cipro; iw 08:18 Reglan; iw 08:18 Rocephin; iw 08:18 Stadol; iw 08:18 tequin; iw 08:18 Toradol; iw 08:18 tramadol; iw 08:18 Zofran; iw - PMHx: 08:18 Migraines; one kidney; iw - PSHx: 08:18 Cholecystectomy; kidney removal; iw - Immunization history:: Client reports receiving the 2nd dose of the Covid vaccine. - Social history:: Smoking status: Patient denies any tobacco usage or history of. ROS: 08:04 Constitutional: Negative for fever, chills, and weight loss, Eyes: Negative for injury, jh7 pain, redness, and discharge, ENT: Negative for injury, pain, and discharge, Neck: Negative for injury, pain, and swelling, Cardiovascular: Negative for chest pain, palpitations, and edema, Respiratory: Negative for shortness of breath, cough, wheezing, and pleuritic chest pain, Back: Negative for injury and pain, MS/Extremity: Negative for injury and deformity, Skin: Negative for injury, rash, and discoloration, 08:04 Abdomen/GI: Positive for nausea and vomiting, Negative for abdominal pain, 08:04 Neuro: Positive for headache, Negative for numbness, seizure activity, speech changes, syncope, tingling, visual changes, 08:04 All other systems are negative, Exam: 08:04 Head/Face: Normocephalic, atraumatic. Eyes: Pupils equal round and reactive to light, jh7 extra-ocular motions intact. Lids and lashes normal. Conjunctiva and sclera are non-icteric and not injected. Cornea within normal limits. Periorbital areas with no swelling, redness, or edema. ENT: Nares patent. No nasal discharge, no septal abnormalities noted. Tympanic membranes are normal and external auditory canals are clear. Oropharynx with no redness, swelling, or masses, exudates, or evidence of obstruction, uvula midline. Mucous membranes moist. Neck: Trachea midline, no thyromegaly or masses palpated, and no cervical lymphadenopathy. Supple, full range of motion without nuchal rigidity, or vertebral point tenderness. No Meningismus. Cardiovascular: Regular rate and rhythm with a normal S1 and S2. No gallops, murmurs, or rubs. Normal PMI, no JVD. No pulse deficits. Respiratory: Lungs have equal breath sounds bilaterally, clear to auscultation and percussion. No rales, rhonchi or wheezes noted. No increased work of breathing, no retractions or nasal flaring. Abdomen/GI: Soft, non-tender, with normal bowel sounds. No distension or tympany. No guarding or rebound. No evidence of tenderness throughout. Skin: Warm, dry with normal turgor. Normal color with no rashes, no lesions, and no evidence of cellulitis. MS/ Extremity: Pulses equal, no cyanosis. Neurovascular intact. Full, normal range of motion. 08:04 Constitutional: The patient appears alert, awake, in obvious pain, 08:04 Neuro: Orientation: to person, place, time \T\ situation. Mentation: is normal, Memory: is normal, Cranial nerves: grossly normal, Cerebellar function: is grossly normal, Motor: is normal, Sensation: is normal, Gait: is steady, Vital Signs: 08:17 BP 129 / 80; Pulse 100; Resp 16; Temp 98.2; Pulse Ox 100% on R/A; Weight 90.72 kg; aa5 Height 5 ft. 2 in. ; Pain 10/10; 08:20 BP 135 / 82; Pulse 88; Resp 17; Temp 98(O); Pulse Ox 99% on R/A; rs5 09:00 BP 125 / 77; Pulse 80; Resp 16; Pulse Ox 99% on R/A; rs5 08:17 Body Mass Index 36.58 (90.72 kg, 157.48 cm) aa5 08:17 Pain Scale: Adult aa5 MDM: 08:04 Patient medically screened. 7 09:30 Differential diagnosis: Acute migraine headache, tension headache, sinusitis, cluster jh7 headache. Data reviewed: vital signs, nurses notes. I considered the following discharge prescriptions or medication management in the emergency department Medications were administered in the Emergency Department. See MAR. Counseling: I had a detailed discussion with the patient and/or guardian regarding the historical points, exam findings, and any diagnostic results supporting the discharge/admit diagnosis, to return to the emergency department if symptoms worsen or persist or if there are any questions or concerns that arise at home. Response to treatment: the patient's symptoms have markedly improved after treatment. Administered Medications: 08:25 Drug: NS 0.9% IV 1000 ml IV at 1 bolus Per protocol; 1000 mL bolus Route: IV; Rate: 1 rs5 bolus; Site: right antecubital; 08:40 Follow up: Response: No adverse reaction rs5 08:25 Drug: diphenhydrAMINE IVP 25 mg IVP once Route: IVP; Site: right antecubital; rs5 08:40 Follow up: Response: No adverse reaction rs5 08:25 Drug: Decadron - Dexamethasone IVP 10 mg IVP once Route: IVP; Site: right antecubital; rs5 08:40 Follow up: Response: No adverse reaction rs5 08:25 Drug: Promethazine IVP 12.5 mg IVP once Route: IVP; Site: right antecubital; rs5 08:40 Follow up: Response: No adverse reaction rs5 08:45 Drug: Acetaminophen PO 1000 mg PO once Route: PO; rs5 09:15 Follow up: Response: No adverse reaction; Pain is decreased rs5 Disposition Summary: 05/09/23 09:16 Discharge Ordered Notes: Location: Home [facility] Problem: an ongoing problem [facility] Symptoms: have improved [facility] Condition: Stable [facility] Diagnosis - Migraine without aura, not intractable 7 Followup: [facility] - With: Private Physician - When: 2 - 3 days - Reason: Recheck today's complaints Discharge Instructions: - Discharge Summary Sheet [facility] - Migraine Headache [facility] Forms: - Medication Reconciliation Form [facility] - Thank You Letter jh7 - Patient Portal Instructions [facility] - Leadership Thank You Letter [facility] Prescriptions: - Medrol (Maninder) 4 mg Oral Tablets, Dose Pack - take 1 tablet ORAL route as directed - follow package instructions; 1 packet; [facility] Refills: 0, Product Selection Permitted - promethazine 25 mg Oral Tablet - take 1 tablet ORAL route every 6 hours As needed; 20 tablet; Refills: 0, [facility] Product Selection Permitted Signatures: Virginia Vela RN RN Elsa Hernandez [employer] [place] [id number] Alfred Goodman RN RN rs5
--- NOTE | 2023-05-09 09:16 | ER ---
Nurse's Notes [facility] Name: Yissel Carmona Age: 47 yrs Sex: Female : 1975 Arrival Date: 05/09/2023 Time: 08:00 Bed 7 Private MD: Diagnosis: Migraine without aura, not intractable Presentation: 05/09 08:17 Chief complaint: Patient states: migraine since last night, +hx of migraines, meds not iw working, +n/v. Coronavirus screen: At this time, the client does not indicate any symptoms associated with coronavirus-19. Ebola Screen: Patient negative for fever greater than or equal to 101.5 degrees Fahrenheit, and additional compatible Ebola Virus Disease symptoms Patient denies exposure to infectious person. Patient denies travel to an Ebola-affected area in the 21 days before illness onset. No symptoms or risks identified at this time. 08:17 Method Of Arrival: Ambulatory iw 08:17 Acuity: NEVAEH 3 iw 08:17 Risk Assessment: Do you want to hurt yourself or someone else? Patient reports no rs5 desire to harm self or others. 08:17 Initial Sepsis Screen: Does the patient meet any 2 criteria? No. Patient's initial rs5 sepsis screen is negative. Does the patient have a suspected source of infection? No. Patient's initial sepsis screen is negative. Onset of symptoms was May 08, 2023. 08:17 Onset of symptoms was May 09, 2023 at 05:00. rs5 Triage Assessment: 08:17 General: Appears in no apparent distress. uncomfortable, Behavior is calm, cooperative. rs5 08:17 Pain: Complains of pain in head. GI: Reports nausea, vomiting. rs5 Historical: - Allergies: 08:18 Cipro; iw 08:18 Reglan; iw 08:18 Rocephin; iw 08:18 Stadol; iw 08:18 tequin; iw 08:18 Toradol; iw 08:18 tramadol; iw 08:18 Zofran; iw - PMHx: 08:18 Migraines; one kidney; iw - PSHx: 08:18 Cholecystectomy; kidney removal; iw - Immunization history:: Client reports receiving the 2nd dose of the Covid vaccine. - Social history:: Smoking status: Patient denies any tobacco usage or history of. Screenin:[address] [facility] ED Fall Risk Assessment (Adult) History of falling in the last 3 months, rs5 including since admission No falls in past 3 months (0 pts) Confusion or Disorientation No (0 pts) Intoxicated or Sedated No (0 pts) Impaired Gait No (0 pts) Mobility Assist Device Used No (0 pt) Altered Elimination No (0 pt) Score/Fall Risk Level 0 - 2 = Low Risk Oriented to surroundings, Maintained a safe environment. 08:17 Abuse screen: Denies threats or abuse. Nutritional screening: No deficits noted. rs5 Tuberculosis screening: No symptoms or risk factors identified. Assessment: 08:17 GI: Abdomen is round obese. rs5 Vital Signs: 08:17 BP 129 / 80; Pulse 100; Resp 16; Temp 98.2; Pulse Ox 100% on R/A; Weight 90.72 kg; aa5 Height 5 ft. 2 in. ; Pain 10/10; 08:20 BP 135 / 82; Pulse 88; Resp 17; Temp 98(O); Pulse Ox 99% on R/A; rs5 09:00 BP 125 / 77; Pulse 80; Resp 16; Pulse Ox 99% on R/A; rs5 08:17 Body Mass Index 36.58 (90.72 kg, 157.48 cm) aa5 08:17 Pain Scale: Adult aa5 ED Course: 08:03 Patient arrived in ED. mg5 08:04 [facility] jh7 08:04 Yasmani Calvillo MD is Attending Physician. jh7 08:12 Alfred Goodman, RN is Primary Nurse. rs5 08:17 Patient has correct armband on for positive identification. Bed in low position. Call rs5 light in reach. Side rails up X2. 08:18 Triage completed. iw 08:19 Arm band placed on. iw 09:25 No provider procedures requiring assistance completed. rs5 09:25 IV discontinued, intact, bleeding controlled, No redness/swelling at site. Pressure rs5 dressing applied. Administered Medications: 08:25 Drug: NS 0.9% IV 1000 ml IV at 1 bolus Per protocol; 1000 mL bolus Route: IV; Rate: 1 rs5 bolus; Site: right antecubital; 08:40 Follow up: Response: No adverse reaction rs5 08:25 Drug: diphenhydrAMINE IVP 25 mg IVP once Route: IVP; Site: right antecubital; rs5 08:40 Follow up: Response: No adverse reaction rs5 08:25 Drug: Decadron - Dexamethasone IVP 10 mg IVP once Route: IVP; Site: right antecubital; rs5 08:40 Follow up: Response: No adverse reaction rs5 08:25 Drug: Promethazine IVP 12.5 mg IVP once Route: IVP; Site: right antecubital; rs5 08:40 Follow up: Response: No adverse reaction rs5 08:45 Drug: Acetaminophen PO 1000 mg PO once Route: PO; rs5 09:15 Follow up: Response: No adverse reaction; Pain is decreased rs5 Medication: 09:25 VIS not applicable for this client. rs5 Outcome: 09:16 Discharge ordered by . 7 09:25 Discharged to home ambulatory, with family, rs5 09:25 Condition: stable 09:25 Discharge instructions given to patient, family, Demonstrated understanding of instructions, follow-up care, medications, Prescriptions given X 2, 09:30 Patient left the ED. rs5 Signatures: Virginia Vela RN RN Katarzyna Villafana RN RN aa5 Elsa Hernandez, CLUB ATTENDANT [place] [id number] Alfred Goodman RN RN rs5 Cindy Baltazar mg5 Corrections: (The following items were deleted from the chart) 08:39 08:17 Resp 16bpm; Temp 98.2F; 90.72 kg; Height 5 ft. 2 in.; BMI: 36.5; Pain 10/10, aa5 Adult; 12:25 12:25 No provider procedures requiring assistance completed. rs5 rs5 12:29 12:28 Response: No adverse reaction rs5 rs5
== END 2023-05-09 09:30 | disposition home or self-care (01) ==
LOC: ER 08:00
DX: G43.009 Migraine without aura, not intractable, without status migrainosus (principal)
CPT/HCPCS: J1100; J1200; J2550; J7030

== ENCOUNTER 2023-05-31 06:09 | Emergency (ER) | payer SELFPAY ==
--- OUTSIDE RECORDS SUMMARY | 2023-05-31 06:18 | XMS REPORT | Continuity of Care Document ---
:1975 Author Organization [facility] t Address [address] [place] [address] Care Team Providers Name Role Phone Pcp, Patient Does Not Have A Primary Care Physician [id number] Doctor Unassigned, [place] Attending Clinician Unavailable SUPRIYA PFEIFFER Attending Clinician [...] Type Policy Number Effective Date Expiration Date [facility] [id number] 2018 [facility] MEDICA[facility] 00:00:00 Problems Condition Condition Condition [...] Active 2021-07 Univers 2-30 ity of 00:00: [place] 00 [facility] Urinary Urinary Disease Active 2021-07 Univers frequency frequency 2-30 ity of 00:00: [place] 00 [facility] Kidney Kidney Disease Active 2021-07 Univers stone stone 2-30 ity of 00:00: [place] 00 [facility] Acute Acute Disease Active 2021-07 Univers intractabl intractabl 2-30 it y of e e 00:00: [place] tension-ty tension-ty 00 Me dical pe pe Branch headache headache No known No known Disease Unive rs active active ity of problems problems [facility] Allergies, Adverse Reactions, Alerts Allergy Allergy Status Severity Reaction(s) Onset Inactive Treating Comm ents Source Name Type Date Date Clinician METOCLOP DRUG Active Hives 2021-07 Univers RAMIDE INGREDI 0-16 ity of 00:00: [place] 00 [facility] GATIFLOX DRUG Active Unknown-Cmnt 2021-07 Un davin ACIN INGREDI 0-16 ity of 00:00: [place] 00 [facility] CEFTRIAX DRUG Active Rash 2021-07 Univers ONE INGREDI 0-16 ity of 00:00: [place] 00 [facility] Metoclop Propensi Active Hives 2021-07 Univer s [...] Stop Date Quantity Comments Source Gender identity [facility] Sexual orientation [facility] Exposure to 2022-08-21 2022-08-31 Not sure [facility] SARS-CoV-2 (event) 00:00:00 10:48:00 Medica l Branch Sex Assigned At [birth year] [facility] 00:00:00 00:00:00 Medical Branch Smoking Status Start Date Stop Date Source Tobacco smoking consumption [facility] Branch Medications Ordered Filled Start [...] 07/15/22 at 1445, STAT iopamidol 2021-07- No [id number] 84mL 84 mL, Univers (ISOVUE 30 -30 [...] 07/15/22 at 1230, STAT proMETHazin 2021-07 Yes [id number] 25mg Take 1 Univers e 25 mg 2-30 tablet by ity of tablet 00:00: mouth [place] 00 every 6 Medical (six) Branch hours as needed for Nausea and Vomiting (N/V) for up to 10 doses. proMETHazin 2021-07 Yes [id number] 25mg Take 1 Univers e 25 mg 2-30 tablet by ity of tablet 00:00: mouth [place] 00 every 6 Medical (six) Branch hours as needed for Nausea and Vomiting (N/V) for up to 10 doses. proMETHazin 2021-07 Yes [id number] 25mg Take 1 Univers e 25 mg 2-30 tablet by ity of tablet 00:00: mouth [place] 00 every 6 Medical (six) Branch hours as needed for Nausea and Vomiting (N/V) for up to 10 doses. Nitrofurant 2021-07- No [id number] 100mg Take 1 Univers oin&Nit. 2-30 -07 capsule by ity of [place] 00:00: 05:59 [place] (MACROBID[place] 00 :00 the Medical 100 mg morning Branch capsule and 1 capsule in the evening. Do all this for 7 days. cyclobenzap 2021-07- No [id number] 10mg Take 2 Univers rine 5 mg [...] IV ity of (PHENERGAN) 18:30: 18:29 Piggyback, [place] 12.5 mg in 00 :00 ONCE, 1 Medica l NaCl 0.9% dose, On Branch (NS) 50 mL Sun IV 05/01/22 piggyback at 1330, LISE sulfamethox 2021-07 Yes [id number] 1{tbl} Take 1 Univers azole-trime 0-16 tablet by ity of thoprim 00:00: mouth [place] 800-160 mg 00 every 12 Medic al per tablet (twelve) Branc h hours. proMETHazin 2021-07 Yes [id number] 25mg Take 1 Univers e 25 mg 0-16 tablet by ity of tablet 00:00: mouth [place] 00 every 6 Medical (six) Branch hours as needed for Nausea and Vomiting (N/V). oxybutynin 2021-07 Yes [id number] 5mg Take 1 U nivers XL 5 mg 24 0-16 tablet by ity of hr tablet 00:00: [place] the Medical morning. Branch phenazopyri 2021-07 Yes [id number] 200mg Take 1 Univers dine 200 mg 0-16 tablet by ity of tablet 00:00: mouth in [place] the Medical morning Branch and 1 tablet at noon and 1 tablet in the evening. sulfamethox 2021-07 Yes [id number] 1{tbl} Take 1 Univers azole-trime 0-16 tablet by ity of thoprim 00:00: mouth [place] 800-160 mg 00 every 12 Medic al per tablet (twelve) Branc h hours. proMETHazin 2021-07 Yes [id number] 25mg Take 1 Univers e 25 mg 0-16 tablet by ity of tablet 00:00: mouth [place] 00 every 6 Medical (six) Branch hours as needed for Nausea and Vomiting (N/V). oxybutynin 2021-07 Yes [id number] 5mg Take 1 U nivers XL 5 mg 24 0-16 tablet by ity of hr tablet 00:00: [place] the Medical morning. Branch phenazopyri 2021-07 Yes [id number] 200mg Take 1 Univers dine 200 mg 0-16 tablet by ity of tablet 00:00: mouth in [place] 00 the Medical morning Branch and 1 tablet at noon and 1 tablet in the evening. sulfamethox 2021-07 Yes [id number] 1{tbl} Take 1 Univers azole-trime 0-16 tablet by ity of thoprim 00:00: mouth [place] 800-160 mg 00 every 12 Medic al per tablet (twelve) Branc h hours. proMETHazin 2021-07 Yes [id number] 25mg Take 1 Univers e 25 mg 0-16 tablet by ity of tablet 00:00: mouth [place] 00 every 6 Medical (six) Branch hours as needed for Nausea and Vomiting (N/V). oxybutynin 2021-07 Yes [id number] 5mg Take 1 U nivers XL 5 mg 24 0-16 tablet by ity of hr tablet 00:00: mouth in [facility] [place] [place] 00 the Medical morning. Branch phenazopyri 2021-07 Yes [id number] 200mg Take 1 Univers dine 200 mg 0-16 tablet by ity of tablet 00:00: mouth in [place] the Medical morning Branch and 1 tablet at noon and 1 tablet in the evening. sulfamethox 2021-07 Yes [id number] 1{tbl} Take 1 Univers azole-trime 0-16 tablet by ity of thoprim 00:00: mouth [place] 800-160 mg 00 every 12 Medic al per tablet (twelve) Branc h hours. proMETHazin 2021-07 Yes [id number] 25mg Take 1 Univers e 25 mg 0-16 tablet by ity of tablet 00:00: mouth [place] 00 every 6 Medical (six) Branch hours as needed for Nausea and Vomiting (N/V). oxybutynin 2021-07 Yes [id number] 5mg Take 1 U nivers XL 5 mg 24 0-16 tablet by ity of hr tablet 00:00: mouth in [facility] 00 the Medical morning. Branch phenazopyri 2021-07 Yes [id number] 200mg Take 1 Univers dine 200 mg 0-16 tablet by ity of tablet 00:00: mouth in [place] the Medical morning Branch and 1 tablet [...] MUSCLE SPASMS TAKE 10 ML 2022-0 No [id number] EVERY 6 TO 8-15 8 HOURS 00:00: NEEDED FOR 00 COUGH TAKE 10 ML 2022-0 No [id number] EVERY 6 TO 8-15 8 HOURS 00:00: NEEDED FOR 00 COUGH TAKE 10 ML 2022-0 No [id number] EVERY 6 TO 8-15 8 HOURS 00:00: NEEDED FOR 00 COUGH TAKE 10 ML 2022-0 No [id number] EVERY 6 TO 8-15 8 HOURS 00:00: NEEDED FOR 00 COUGH TAKE 10 ML 2022-0 No [id number] EVERY 6 TO 8-15 8 HOURS 00:00: NEEDED FOR 00 COUGH TAKE 10 ML 2022-0 No [id number] EVERY 6 TO 8-15 8 HOURS 00:00: [...] dose, 01/04/21 at 1415, STAT proMETHazin Yes [id number] 25mg Take 1 Univers e 25 mg 6-21 tablet by ity of tablet 00:00: mouth [place] 00 every 6 Medical (six) Branch hours as needed for Nausea and Vomiting (N/V). proMETHazin 2021- No [id number] 25mg Take 1 Univers e 25 mg 6-21 10-16 tablet by ity of tablet 00:00: 00:00 mouth [place] 00 :00 every 6 Medical (six) Branch hours as needed for Nausea and Vomiting (N/V). cephALEXin 2020- No [id number] 500mg Take 1 Univers (KEFLEX) 01-04 07-02 [...] 02/02/20 at 1730, STAT azithromyci 2020-0 Yes [id number] 250mg Take 1 Univers n 250 mg 7-19 [id number] tablet by ity of tablet 00:00: mouth [place] 00 daily. Medical Take 500 Branch mg day 1, then 250 mg days 2 to 5. benzonatate 2020-0 Yes [id number] 100mg Take 1 Univers 100 mg 7-19 [id number] capsule by ity of capsule 00:00: mouth 3 [place] 00 (three) Medical times Branch daily as needed for Cough. azithromyci 2020-0 Yes [id number] 250mg Take 1 Univers n 250 mg 7-19 tablet by ity of tablet 00:00: mouth [place] 00 daily. Medical Take 500 Branch mg day 1, then 250 mg days 2 to 5. azithromyci 2020-0 Yes [id number] 250mg Take 1 Univers n 250 mg 7-19 [id number] tablet by ity of tablet 00:00: mouth [place] 00 daily. Medical Take 500 Branch mg day 1, then 250 mg days 2 to 5. benzonatate 2020-0 Yes [id number] 100mg Take 1 Univers 100 mg 7-19 [id number] capsule by ity of capsule 00:00: mouth 3 [place] 00 (three) Medical times Branch daily as needed for Cough. benzonatate 2020-0 Yes [id number] 100mg Take 1 Univers 100 mg 7-19 capsule by ity of capsule 00:00: mouth 3 [place] 00 (three) Medical times Branch daily as needed for Cough. proMETHazin 2020-0 Yes [id number] 25mg Take 1 Univers e 25 mg 7-19 tablet by ity of tablet 00:00: mouth [place] 00 every 4 Medical (four) Branch hours as needed for Nausea and Vomiting (N/V). azithromyci 2020-0 Yes [id number] 250mg Take 1 Univers n 250 mg 7-19 [id number] tablet by ity of tablet 00:00: mouth [place] 00 daily. Medical Take 500 Branch mg day 1, then 250 mg days 2 to 5. benzonatate 2020-0 Yes [id number] 100mg Take 1 Univers 100 mg 7-19 [id number] capsule by ity of capsule 00:00: mouth 3 (three) Medical times Branch daily as needed for Cough. azithromyci 2020-0 Yes [id number] 250mg Take 1 Univers n 250 mg 7-19 [id number] tablet by ity of tablet 00:00: mouth [place] 00 daily. Medical Take 500 Branch mg day 1, then 250 mg days 2 to 5. benzonatate 2020-0 Yes [id number] 100mg Take 1 Univers 100 mg 7-19 [id number] capsule by ity of capsule 00:00: mouth 3 00 (three) Medical times Branch daily as needed for Cough. azithromyci 2020-0 Yes [id number] 250mg Take 1 Univers n 250 mg 7-19 [id number] tablet by ity of tablet 00:00: mouth [place] 00 daily. Medical Take 500 Branch mg day 1, then 250 mg days 2 to 5. benzonatate 2020-0 Yes [id number] 100mg Take 1 Univers 100 mg 7-19 [id number] capsule by ity of capsule 00:00: mouth 3 (three) Medical times Branch daily as needed for Cough. azithromyci 2020-0 Yes [id number] 250mg Take 1 Univers n 250 mg 7-19 [id number] tablet by ity of tablet 00:00: mouth [place] 00 daily. Medical Take 500 Branch mg day 1, then 250 mg days 2 to 5. benzonatate 2020-0 Yes [id number] 100mg Take 1 Univers 100 mg 7-19 [id number] capsule by ity of capsule 00:00: mouth 3 (three) Medical times Branch daily as needed for Cough. proMETHazin 2020-0 Yes [id number] 25mg Take 1 Univers e 25 mg 7-19 [id number] tablet by ity of tablet 00:00: mouth [place] 00 every 4 Medical (four) Branch hours as needed for Nausea and Vomiting (N/V). azithromyci 2020-0 Yes [id number] 250mg Take 1 Univers n 250 mg 7-19 [id number] tablet by ity of tablet 00:00: mouth [place] 00 daily. Medical Take 500 Branch mg day 1, then 250 mg days 2 to 5. benzonatate 2020-0 Yes [id number] 100mg Take 1 Univers 100 mg 02-01 [id number] capsule by ity of capsule 00:00: mouth 3 [place] 00 (three) Medical times Branch daily as needed for Cough. proMETHazin 2020-0 2020- No [id number] 25mg Take 1 Univers e 25 mg 02-01 [id number] tablet by ity of tablet 00:00: 00:00 [...] blood 2022-08-31 16:50:00 125 mm[Hg] Univer sity [facility] Diastolic blood 2022-08-31 16:50:00 90 [facility]Hg[facility] 2022-08-31 16:50:00 118 /min [facility] Body temperature 2022-08-31 16:50:00 36.83 Carmen [facility] ersity of [place] [facility] Respiratory rate 2022-08-31 16:50:00 20 /min Univ ers[facility] [place] [facility] Body weight 2022-08-31 16:50:00 90.719 kg Universi ty [facility] [place] [facility] BMI 2022-08-31 16:50:00 36.58 kg/m2 Universi ty of [place] [facility] Oxygen saturation in 2022-08-31 16:50:00 99 /min University of Arterial blood by [place] Medi laya Pulse oximetry Branch Systolic blood 2022-07-15 22:04:07 111 mm[Hg] Univer sity of pressure [place] [facility] Diastolic blood 2022-07-15 22:04:07 92 mm[Hg] Unive rsity of pressure [place] [facility] Heart rate 2022-07-15 22:04:07 88 /min Universi ty of [place] [facility] Respiratory rate 2022-07-15 22:04:07 16 /min Univ ersity [facility] [place] [facility] Oxygen saturation in 2022-07-15 22:04:07 100 /min University of Arterial blood by [facility] laya Pulse oximetry Branch Body temperature 2022-07-15 [...] 2022-05-01 19:30:43 18 /min Univ ersity of [place] [facility] Oxygen saturation in 2022-05-01 19:30:43 100 /min University of Arterial blood by [place] Medi laya Pulse oximetry Branch Body weight 2022-05-01 17:38:00 87.544 kg Universi ty [facility] [place] [facility] BMI 2022-05-01 17:38:00 35.30 kg/m2 Universi ty of [place] [facility] Systolic blood 2021-01-04 19:00:00 109 mm[Hg] Univer sity of pressure [place] [facility] Diastolic blood 2021-01-04 19:00:00 67 mm[Hg] Unive rsity of pressure [place] [facility] Heart rate 2021-01-04 19:00:00 88 /min Universi ty of [place] [facility] Respiratory rate 2021-01-04 19:00:00 19 /min Univ ersity of [place] [facility] Oxygen saturation in 2021-01-04 19:00:00 100 /min University of Arterial blood by [place] [facility] Pulse oximetry Branch Body temperature 2021-01-04 17:31:00 37.17 Carmen Univ ersity of [place] [facility] Body weight 2021-01-04 17:31:00 87.544 kg Universi ty [facility] [place] [facility] BMI 2021-01-04 17:31:00 35.30 kg/m2 Universi ty [facility] [place] [facility] Systolic blood 2020-02-03 00:13:53 134 mm[Hg] Univer sity of pressure [place] [facility] Diastolic blood 2020-02-03 00:13:53 89 mm[Hg] Unive rsity of pressure [place] [facility] Heart rate 2020-02-03 00:13:53 101 /min Universi ty [facility] [place] [facility] Respiratory rate 2020-02-03 00:13:53 20 /min Univ ersity [facility] [place] [facility] Oxygen saturation in 2020-02-03 00:13:53 97 /min University of Arterial blood by [facility] laya Pulse oximetry Branch Body temperature 2020-02-02 18:46:00 37.83 Carmen Univ ersity of [place] [facility] Body weight 2020-02-02 18:46:00 84.823 kg Universi ty [facility] [place] [facility] BMI 2020-02-02 18:46:00 34.20 kg/m2 Universi ty [facility] [place] [facility] Body height 2020-02-02 18:45:00 157.5 cm Universi ty [facility] [place] [facility] Systolic blood 2020-02-03 00:13:53 134 mm[Hg] Univer sity of pressure [place] [facility] Diastolic blood 2020-02-03 00:13:53 89 mm[Hg] Unive rsity of pressure [place] [facility] Heart rate 2020-02-03 00:13:53 101 /min [facility] Respiratory rate 2020-02-03 00:13:53 20 /min [facility] Oxygen saturation in 2020-02-03 00:13:53 97 /min [facility] Arterial blood by [facility] Pulse oximetry Branch Body temperature 2020-02-02 18:46:00 37.83 Carmen [facility] 2020-02-02 18:46:00 84.823 kg [facility] BMI 2020-02-02 18:46:00 34.20 kg/m2 [facility] Body height 2020-02-02 18:45:00 157.5 cm [facility] BP Systolic 2022-04-14 09:30:00 100 mm[Hg] [...] Procedure Date / Time Performed Performing Clinician [facility] e REFERRAL- 2023-02-17 05:01:00 Doctor Unassigned, No [facility] REQUEST/RESPONSE Name Medical Branch CONSENT/REFUSAL FOR 2022-08-31 16:36:06 [facility] Name Medical Branch TREATMENT CT ABDOMEN PELVIS W 2022-07-15 19:52:36 Debbie Boyce [facility] CONTRAST [facility] Branch COMP. METABOLIC PANEL 2022-07-15 19:34:00 Debbie Boyce [facility] ([id number]) [facility] CBC WITH DIFF 2022-07-15 19:34:00 Debbie Boyce [facility] URINALYSIS 2022-07-15 19:34:00 Debbie Boyce [facility] POCT TEST 2022-07-15 19:34:00 [facility] CONSENT[facility]REFUSAL FOR 2022-07-15 17:04:45 Doctor [facility]assigned, No [facility] Name Medical Branch TREATMENT CT ABDOMEN PELVIS WO 2022-05-01 18:06:33 Marcio Augustine [facility] CONTRAST Medical Branch COMP. METABOLIC PANEL 2022-05-01 17:58:00 Marcio Augustine [facility] ([id number]) Medical Branch CBC WITH DIFF 2022-05-01 17:58:00 Marcio Augustine o f [facility] URINALYSIS 2022-05-01 17:41:00 Marcio Augustine [place] [facility] NOTICE OF PRIVACY 2022-05-01 17:31:57 Doctor Unassigned, No Univ ersity of [facility] Name Medical Branch CONSENT/REFUSAL FOR 2022-05-01 17:28:36 Doctor Unassigned, No Un iversity of [place] DIAGNOSIS AND Name Medical Branch TREATMENT LIPASE 2021-01-04 17:41:00 Gagandeep Rutherford [place] [facility] COMP. METABOLIC PANEL 2021-01-04 17:41:00 Gagandeep Rutherford [facility] ([id number]) Medical Branch CBC WITH DIFF 2021-01-04 17:41:00 Gagandeep Rutherford Rosangela [place] [facility] URINALYSIS 2021-01-04 17:41:00 Gagandeep Rutherford Rosangela [facility] POCT TEST 2021-01-04 17:41:00 Gagandeep Rutherford [facility] NOTICE OF PRIVACY 2021-01-04 17:17:35 Doctor Unassigned, No [facility] [place] CONSENT/REFUSAL FOR 2021-01-04 17:17:20 Doctor Unassigned, No Un i[facility] [place] DIAGNOSIS AND Name Medical [place] TREATMENT XR CHEST 1 VW COVID 2020-02-02 22:20:20 Rafael Perez [facility] 2020-02-02 22:14:49 [facility] MET[facility]OLIC PANEL 2020-02-02 21:58:00 Rafael Perez Un iversity of [place] ([id number]) Medical Branch CBC WITH DIFF 2020-02-02 21:58:00 Rafael Perez [facility] POCT TEST 2020-02-02 21:58:00 Rafael Perez Univ ersity of [facility] URINALYSIS 2020-02-02 21:51:00 [facility] COVID-19 (ID NOW RAPID 2020-02-02 21:48:00 Rafael Perez [facility] [place] [facility] Medical Branch NOTICE OF PRIVACY 2020-02-02 18:28:09 Doctor Unassigned, No Univ ersity of [place] PRACTICES Name Medical Branch CONSENT/REFUSAL FOR 2020-02-02 18:21:41 Doctor Unassigned, No Un i[facility] of [place] DIAGNOSIS AND Name Medical Branch TREATMENT Plan of Care Planned Activity Planned Date Details Comments Source Goal Plan of Care Note [code = 75508-9] Goal Plan of Care Note [code = 20061-9] Goal Plan of Care Note [code = 11441-8] Goal Plan of Care Note [code = 49176-5] Goal Plan of Care Note [code = 85576-7] Goal Plan of Care Note [code = 76549-9] Goal Plan of Care Note [code = 30534-7] Goal Plan of Care Note [code = 26697-9] Goal Plan of Care Note [code = 51272-2] Goal Plan of Care Note [code = 97267-2] Goal Plan of Care Note [code = 72911-8] Goal Plan of Care Note [code = 09832-1] Goal Plan of Care Note [code = 27311-4] Goal Plan of Care Note [code = 84100-5] Goal Plan of Care Note [code = 25491-9] Goal Plan of Care Note [code = 26114-6] Goal Plan of Care Note [code = 05691-1] Goal Plan of Care Note [code = 02705-2] Goal Plan of Care Note [code = 24152-4] Goal Plan of Care Note [code = 48634-8] Goal Plan of Care Note [code = 56296-6] Goal Plan of Care Note [code = 98656-1] Goal Plan of Care Note [code = 46776-4] Goal Plan of Care Note [code = 19600-7] Goal Plan of Care Note [code = 87210-0] Goal Plan of Care Note [code = 67977-6] Goal Plan of Care Note [code = 57527-7] Goal Plan of Care Note [code = 34617-6] Goal Plan of Care Note [code = 96973-4] Goal Plan of Care Note [code = 22796-1] Goal Plan of Care Note [code = 88411-4] Goal Plan of Care Note [code = 10996-8] Goal Plan of Care Note [code = 31999-0] Goal Plan of Care Note [code = 03282-8] Goal Plan of Care Note [code = 87532-3] Goal Plan of Care Note [code = 69765-1] Goal Plan of Care Note [code = 80034-3] Goal Plan of Care Note [code = 52705-3] Goal Plan of Care Note [code = 12232-0] Goal Plan of Care Note [code = 62530-7] Goal Plan of Care Note [code = 78117-2] Goal Plan of Care Note [code = 13257-3] Goal Plan of Care Note [code = 75474-4] Goal Plan of Care Note [code = 92606-6] Goal Plan of Care Note [code = 95988-9] Goal Plan of Care Note [code = 99189-7] Goal Plan of Care Note [code = 40655-9] Goal Plan of Care Note [code = 05350-8] Goal Plan of Care Note [code = 77058-0] Goal Plan of Care Note [code = 72623-2] Goal Plan of Care Note [code = 37393-1] Goal Plan of Care Note [code = 64197-7] Goal Plan of Care Note [code = 46430-3] Goal Plan of Care Note [code = 92391-5] Goal Plan of Care Note [code = 71686-5] Goal Plan of Care Note [code = 52664-9] Goal Plan of Care Note [code = 49893-4] Goal Plan of Care Note [code = 00298-5] Goal Plan of Care Note [code = 95926-7] Goal Plan of Care Note [code = 09150-7] Goal Plan of Care Note [code = 32139-2] Goal Plan of Care Note [code = 84007-5] Goal Plan of Care Note [code = 09190-9] Goal Plan of Care Note [code = 17074-6] Goal Plan of Care Note [code = 69652-1] Goal Plan of Care Note [code = 91395-5] Goal Plan of Care Note [code = 12878-2] Goal Plan of Care Note [code = 47747-3] Goal Plan of Care Note [code = 74868-7] Goal Plan of Care Note [code = 39139-2] Goal Plan of Care Note [code = 81900-0] Goal Plan of Care Note [code = 17943-0] Goal Plan of Care Note [code = 55305-9] Goal Plan of Care Note [code = 04146-2] Goal Plan of Care Note [code = 69181-4] Goal Plan of Care Note [code = 57943-8] Goal Plan of Care Note [code = 93440-0] Goal Plan of Care Note [code = 14478-0] Goal Plan of Care Note [code = 72876-0] Goal Plan of Care Note [code = 75423-1] Goal Plan of Care Note [code = 91808-0] Goal Plan of Care Note [code = 60704-2] Goal Plan of Care Note [code = 88654-1] Goal Plan of Care Note [code = 51679-2] Goal Plan of Care Note [code = 82174-5] Goal Plan of Care Note [code = 76820-2] Goal Plan of Care Note [code = 79147-4] Goal Plan of Care Note [code = 28845-6] Goal Plan of Care Note [code = 03809-4] Goal Plan of Care Note [code = 72250-6] Goal Plan of Care Note [code = 49937-8] Goal Plan of Care Note [code = 70624-8] Goal Plan of Care Note [code = 77080-0] Goal Plan of Care Note [code = 91099-2] Goal Plan of Care Note [code = 38253-1] Goal Plan of Care Note [code = 34674-5] Goal Plan of Care Note [code = 89704-6] Goal Plan of Care Note [code = 87714-0] Goal Plan of Care Note [code = 04970-5] Goal Plan of Care Note [code = 51107-1] Goal Plan of Care Note [code = 40778-6] Goal Plan of Care Note [code = 61144-3] Goal Plan of Care Note [code = 33751-7] Goal Plan of Care Note [code = 33295-4] Goal Plan of Care Note [code = 83145-2] Goal Plan of Care Note [code = 87473-2] Goal Plan of Care Note [code = 26955-8] Goal Plan of Care Note [code = 45316-2] Goal Plan of Care Note [code = 42689-7] Goal Plan of Care Note [code = 60044-9] Goal Plan of Care Note [code = 05407-2] Goal Plan of Care Note [code = 54185-8] Goal Plan of Care Note [code = 56084-2] Goal Plan of Care Note [code = 40705-3] Goal Plan of Care Note [code = 18947-7] Goal Plan of Care Note [code = 01111-7] Goal Plan of Care Note [code = 45269-5] Goal Plan of Care Note [code = 18052-7] Goal Plan of Care Note [code = 40729-3] Goal Plan of Care Note [code = 86255-3] Goal Plan of Care Note [code = 57491-5] Goal Plan of Care Note [code = 23254-5] Encounters Start End Encounter Admission Attending Care Care Encounter Source Date/Time Date/Time Type Type Clinicians Facility Department ID 2023-05-26 2023-05-26 Outpatient [facility] [id number] 023 Dani 17:25:40 17:25:40 [address] [place] 2023-02-23 2023-02-23 Outpatient SFA SFA [id number] 023 Dani 09:27:08 09:27:08 [address] [place] 2023-02-20 2023-02-20 Outpatient SFA SFA [id number] 023 Dani 10:16:33 10:16:33 0807 [facility] 2023-02-17 2023-02-17 Outpatient SFA SFA [id number] 023 Dani 10:05:32 10:05:32 0804 [facility] 2023-02-17 2023-02-17 Orders Doctor MENDOZA [id number] 00:00:00 00:00:00 Only Unassigned, KRISTEN [id number] ity of [place] [facility] [id number] Jose Luis as [phone] Medi laya 009 Branch 2022-12-08 2022-12-08 Outpatient SFA SFA [id number] 023 Dani 09:36:02 09:36:02 0525 [facility] 2022-12-05 2022-12-05 Outpatient SFA SFA [id number] 023 Dani 09:31:37 09:31:37 0522 [facility] 2022-12-01 2022-12-01 Outpatient SFA SFA 14104-7 023 Dani 09:16:39 09:16:39 [address] [place] 2022-09-22 2022-09-22 Outpatient [facility] [id number] 023 Dani 17:04:02 17:04:02 [address] [place] 2022-08-31 2022-08-31 Emergency X MARGARETTE [facility] ERT [id number] Univers 10:51:00 11:41:00 SUPRIYA gardenia [facility] 2022-08-31 2022-08-31 Emergency [facility] 1.2.840.114 [id number] Univers 10:51:00 11:41:00 Supriya OLMOS 350.1.13.10 ity [facility] 4.2.7.2.686 [facility] [id number] [address] 2022-07-15 2022-07-15 Emergency [facility] [id number] Univers 11:31:00 16:31:00 DEBBIE gardenia [facility] 2022-07-15 2022-07-15 Emergency [facility] 1.2.840.114 [id number] Univers 11:31:00 16:31:00 Debbie Neena OLMOS 350.1.13.10 ity [facility] 4.2.7.2.686 [facility] [id number] [address] 2022-05-01 2022-05-01 Emergency X [facility] ERT [id number] Univers 12:42:00 14:35:00 MARCIO varner [facility] 2022-05-01 2022-05-01 Emergency [facility] [id number] [id number] Univers 12:42:00 14:35:00 Marcio OLMOS 350.1.13.10 i ty of [place] 4.2.7.2.686 [facility] [id number] [address] 2022-04-14 2022-04-14 Outpatient [id number]- [id number] 1lf073-6 00:00:00 00:00:00 Visit 242c-4ad0 42c-4ad0-8 -8411-21b 411-21b74e 76j7s8d0b 7c1e5b 2022-04-12 2022-04-12 Outpatient [id number]- [id number] 58f988-4 00:00:00 00:00:00 Visit 87i8-521r 9a0-531z-n -bdf5-cd3 df5-cd3df2 wc537c426 01m957 2022-02-18 2022-02-18 Outpatient y9r96xph- [id number] e0 u10ncf-9 00:00:00 00:00:00 Visit 6f03-0vc3 y50-7pq2-c -v836-3k4 798-2k9348 787beefcc [facility] 2021-01-04 2021-01-04 Emergency Gagandeep uRtherford [facility] 1.2.840.114 [id number] Univers 12:26:00 15:02:00 Rosangela Olmos 350.1.13.10 i ty of [place]2.7.2.[place] [id number] [place] [address] Branch 2021-01-04 2021-01-04 Emergency X Gagandeep RUTHERFORD [facility] ERT [id number] Univers 12:26:00 12:26:00 ity of [facility] 2021-01-04 2021-01-04 Orders Doctor REJI 1.2.840.114 [id number] Univers 00:00:00 00:00:00 Only Unassigned, KRISTEN 350.1.13.10 ity of [place] [facility] 4.2.7.2.686 Jose Luis as [id number] [facility] 009 Branch 2020-02-04 2020-02-04 Patient Doctor REJI 1.2.840.114 [id number] Univers 00:00:00 00:00:00 Secure Msg Unassigned, KRISTEN 350.1.13.10 ity of [place] [facility] 4.2.7.2.686 Jose Luis as [id number] [facility] 019 Branch 2020-02-02 2020-02-02 Emergency [facility] 1.2.840.114 [id number] 14:49:37 19:17:00 Rafael Olmos 350.1.13.10 [place] 4.2.7.2.686 [place] [id number] [facility] 2020-02-02 2020-02-02 Emergency Ibikunle, [facility] 1.2.840.114 [id number] Univers 14:49:37 19:17:00 Rafael Olmos 350.1.13.10 ity [facility] 4.2.7.2.686 [facility] [id number] [place] [address] Branch 2020-02-02 2020-02-02 Emergency X [facility] ERT [id number] Univers 13:20:00 13:20:00 ity [facility] Results Test Description Test Time Test Comments Results Result Comments Source CULTURE, URINE 2023-02-19 SPECIMEN NUMBER: 09:47:07 [id number] CULTURE, URINE SPECIMEN NUMBER: [id number] SPECIMEN COMMENT: URINE SOURCE: URINE REPORT STATUS: FINAL FINAL REPORT: 02/19/2023 10-50,000 CFU/ML UROGENITAL LANI PRESENT NO COMMON PATHOGENS HEMOGLOBIN A1c 2023-02-18 05:52:53 Test Item Value Reference Range Interpretation Comme nts HEMOGLOBIN A1c (test code = 5.7 % 4.2-5.6 H [employer] 39854) GUIDELINES FOR HGB A1C: PREDIABETES/INC REASED RISK [...] SURVIVAL ( HEMOLYTIC ANEMIAS, BLOOD LOSS, ETC.). C ONSIDER ALTERNATE TESTING OR LABORATORY C ONSULTATION. HEPATITIS PANEL, [id number] 04:21:09 Test Item Value Reference Range Interpretation [...] B: (test serology shows no code = 41766) evidence of pa st exposure to orcurrent infec tion with hepatitis B virus. No evide nce of hepatitis Bimmunization i s identified. INTERPRETATION (NOTE) Hepatitis C HEPATITIS C: (test serology shows no code = 10584) evidence of ex posure to hepatitisC v irus at this time. I t can take up to 12 m onths after exposure tothe hepatitis C vir us for antibodies to become detectab le in the blood in ce rtain patients. UNLES S OTHERWISE INDIC ATED, ALL TESTING PERFORMED AT [facility] [employer] [place]. [address] [place] [address] ABDON WOMACK DIRECTOR: Shar SIEGEL POLA NUMBER [id number] [place] [id number] COMPREHENSIVE METABOLIC [id number] 03:56:49 Test Item Value Reference Range Interpretation Comments GLUCOSE (test code = 101 MG/DL 70-99 H 2216) BUN (test code = 10 MG/DL 6-20 2207) CREATININE (test 0.80 MG/DL 0.60-1.30 code = 2214) eGFR (2020 CKD-EPI) 91 ML/MIN/1.73 >60 (test code = 75717) CALC BUN/CREAT (test 13 RATIO 6-28 code = 2235) SODIUM (test code = 138 MEQ/L 063-600 1642) POTASSIUM (test code 4.0 MEQ/L 3.5-5.4 = 2227) CHLORIDE (test code 109 MEQ/L 95-107 H = 2215) CARBON DIOXIDE (test 17 MEQ/L 19-31 L [...] 133 U/L 40-123 H (test code = 220) AST (test code = 35 U/L 9-40 2217) ALT (test code = 43 U/L 5-40 H 2218) LIPID [id number] 03:56:49 Test Item Value Reference Range Interpretation [...] MOREINFORMATION , SEE CLIENT ANNOUNCE MENT AT [email or web address] RISK RATIO LDL/HDL 2.07 RATIO <3.22 (test code = 2237) CBC W/AUTO DIFF WITH [id number] 01:44:08 Test Item Value Reference Range Interpretation [...] RBCS 0.00 K/UL 0.00-0.11 (test code = 65699) VAGINAL PATHOGENS DNA [id number] 13:08:06 Test Item Value Reference Range Interpretation [...] and Trichomonas vag inalis nucleic acid. * [facility] has important patho logy staff changes effecti ve 09/14/2022. New pathology staff will provide uninterrupted, excellent patient care an d clinical consultation. S ee URL: [email or web address]. UNLESS OTHE RWISE INDICATED, ALL TESTING PERFORMED [facility] [address] [place] [address] LABORATOR Y DIRECTOR: MAKAYLA HASKINS M.D. CLIA NUMBER [id number] CAP ACCREDITATION N O. [id number] COMP. METABOLIC PANEL ([id number])2022-07-15 20:37:41 Test Item Value Reference Range Interpretation Comments NA (test code = 138 mmol/L 135-145 0987354414) K (test code = 5.2 mmol/L 3.5-5.0 H 1090691543) CL (test code = 111 mmol/L 98-108 H 4654165906) CO2 TOTAL (test code = 18 mmol/L 23-31 L 3083050801) AGAP (test code = 2-16 0899978431) BUN (test code = 11 mg/dL 7-23 9575385804) GLUCOSE (test code = 83 mg/dL 70-110 8290620510) CREATININE (test code = 0.97 mg/dL 0.50-1.04 0621624845) TOTAL BILI (test code = 0.6 mg/dL 0.1-1.3 2449387963) CALCIUM (test code = 8.5 mg/dL 8.6-10.6 L 8519944676) T PROTEIN (test code = 7.5 g/dL 6.3-8.2 0830455881) ALBUMIN (test code = 4.1 g/dL 3.5-5.0 1287954733) ALK PHOS (test code = 106 U/L 34-122 2304153938) ALTv (test code = 18 U/L 5-35 1742-6) AST(SGOT) (test code = 35 U/L 13-40 6005502007) eGFR (test code = mL/min/1.73m2 4880950656) TOMA (test code = TOMA) Association of [...] tests). Lab Interpretation Abnormal (test code = 24287-7) [facility] WITH [id number] 20:07:37 Test Item Value Reference Range Interpretation Comments WBC (test code = See_Comment [Automated message] 6690-2) The system [employer] generated this result transmitted ref erence range: 4.30 - 1 1.10 10*3/?L. The re ference range was not u sed to interpret this result as normal/abnor mal. RBC (test code = See_Comment [Automated message] 789-8) The system [employer] generated this result transmitted ref erence range: [...] RDW-SD (test code 47.9 fL 39.0-49.9 = 04400-1) RDW-CV (test code 15.1 % 12.0-15.5 = 788-0) PLT (test code = See_Comment [Automated message] 777-3) The system whic h generated this result transmitted ref erence range: 166 - 35 8 10*3/?L. The re ference range was not u sed to interpret this result as normal/abnor mal. MPV (test code = 9.8 fL 9.5-12.9 93414-6) NRBC/100 WBC (test See_Comment [Automat ed message] code = 6960926844) The syste m which generated this result transmitted ref erence range: 0.0 - 10 .0 /100 WBCs. The refer ence range was not u sed to interpret this result as normal/abnor mal. NRBC x10^3 (test See_Comment [Automated message] code = 2059546322) The syste m which generated this result transmitted ref erence range: 10*3/?L. The reference range was not used to interpr et this result as normal/abnormal . GRAN MAT (NEUT) % 63.9 % (test code = 770-8) IMM GRAN % (test 0.50 % code = 4197766478) LYMPH % (test code 24.7 % = 736-9) MONO % (test code 9.6 % = 5905-5) EOS % (test code = 0.9 % 713-8) BASO % (test code 0.4 % = 706-2) GRAN MAT 5.04 10*3/uL 1.88-7.09 x10^3(ANC) (test code = 6722046959) IMM GRAN x10^3 0.04 10*3/uL 0.00-0.06 (test code = 3553347719) LYMPH x10^3 (test 1.95 10*3/uL 1.32-3.29 code = 731-0) MONO x10^3 (test 0.76 10*3/uL 0.33-0.92 code = 742-7) EOS x10^3 (test 0.07 10*3/uL 0.03-0.39 code = 711-2) BASO x10^3 (test 0.03 10*3/uL 0.01-0.07 code = 704-7) [facility] [id number] 19:34:00 Test Item Value Reference Range Interpretation Comments POCT PREG (test code = 1605) Negative On board controls acceptable with Present C Line (test code = 3574) POCT PREG LOT # (test code = 3575) [id number] POCT PREG TEST DATE (test 10-15-2023 code = 3576) Lab Interpretation (test code = Normal 75664-1) [facility] MET[facility]OLIC PANEL ([id number])2022-05-01 18:34:40 Test Item Value Reference Range Interpretation Comments NA (test code = 140 mmol/L 135-145 9582600112) K (test code = 4.4 mmol/L 3.5-5 9209483621) CL (test code = 110 mmol/L 98-108 H 1238410968) CO2 TOTAL (test code = 20 mmol/L 23-31 L 6814495536) AGAP (test code = 2-16 9501874001) BUN (test code = 10 mg/dL 7-23 0027457814) GLUCOSE (test code = 104 mg/dL 70-110 1126311526) CREATININE (test code = 0.84 mg/dL 0.5-1.04 9666401349) TOTAL BILI (test code = 0.3 mg/dL 0.1-1.2 8645673132) CALCIUM (test code = 8.2 mg/dL 8.6-10.6 L 0738301915) T PROTEIN (test code = 7.0 g/dL 6.3-8.2 9497479613) ALBUMIN (test code = 4.1 g/dL 3.5-5 7339271413) ALK PHOS (test code = 95 U/L 34-122 9941548549) ALTv (test code = 34 U/L 5-35 1742-6) AST(SGOT) (test code = 45 U/L 13-40 H 1268118583) eGFR (test code = mL/min/1.73m2 2346061133) TOMA (test code = TOMA) Association of [...] tests). Lab Interpretation Abnormal (test code = 76623-9) [facility] WITH [id number] 18:13:21 Test Item Value Reference Range Interpretation Comments WBC (test code = See_Comment [Automated 0958-2) message] The sy stem which generated this result transmitted reference range : 4.30 - 11.10 10*3/?L. The reference range was not used to interpret this result as normal/abnormal . RBC (test code = See_Comment [Automated 500-8) message] The sy stem which generated this [...] RDW-SD (test code = 48.9 fL 39-49.9 06957-5) RDW-CV (test code = 15.7 % 12-15.5 H 788-0) PLT (test code = See_Comment [Automated 777-3) message] The sy stem which generated this result transmitted reference range : 166 - 358 10*3/ ?L. The reference r martha was not used to interpret this result as normal/abnormal . MPV (test code = 9.5 fL 9.5-12.9 55942-3) NRBC/100 WBC (test See_Comment [Automat ed code = 2425005657) message] The system which generated this result transmitted reference range : 0.0 - 10.0 /100 WBCs. The refer ence range was not u sed to interpret th is result as normal/abnormal . NRBC x10^3 (test code See_Comment [Auto mated = 0268799465) message] The s ystem which generated this result transmitted reference range : 10*3/?L. The reference range was not used to interpret this result as normal/abnormal . GRAN MAT (NEUT) % 63.1 % (test code = 770-8) IMM GRAN % (test code 0.40 % = 1994784331) LYMPH % (test code = 24.5 % 736-9) MONO % (test code = 9.2 % 5905-5) EOS % (test code = 2.3 % 713-8) BASO % (test code = 0.5 % 706-2) GRAN MAT x10^3(ANC) 5.11 10*3/uL 1.88-7.09 (test code = 8069931489) IMM GRAN x10^3 (test 0.03 10*3/uL 0-0.06 code = 0477176237) LYMPH x10^3 (test code 1.99 10*3/uL 1.32-3.29 = 731-0) MONO x10^3 (test code 0.75 10*3/uL 0.33-0.92 = 742-7) EOS x10^3 (test code = 0.19 10*3/uL 0.03-0.39 711-2) BASO x10^3 (test code 0.04 10*3/uL 0.01-0.07 = 704-7) Lab Interpretation Abnormal (test code = 99883-6) [facility] DNA [id number] 15:54:23 Test Item Value Reference Range Interpretation Comments CATA SPECIES (test POSITIVE NEGATIVE A code = 98777) G. VAGINALIS (test POSITIVE NEGATIVE A code = ) T. VAGINALIS (test NEGATIVE NEGATIVE UNLESS O THERWISE code = 48162) INDICATED, ALL TESTING PERFORMED [facility]. [address] [place] [address] 4 LABORATORY DIRE CTOR: TEHO CASTILLO M.D. CLIA NUMBER [id number] [place] [id number] SCR MAMM BILATERAL NATHAN CAD [id number] 08:04:31 Name: Yissel : 1975 Sex: F - SCR MAMM BILATERAL NATHAN CAD DIGITALBILATERAL DIGITAL SCREENING MAMMOGRAM 3D/2D WITH CAD: 04/08/2022LINICAL: Asymptomatic. Digital breast tomosynthesis was performed in addition to routine CC and MLO views. Current mammographic images wereevaluated by [employer] CAD (computer-aided detection) software. No prior exams [...] additional views are recommended. Sarah Rendon M.D. [facility]/:04/15/2022 08:04:31 Radio Time Sales Supervisor: Shireen Graham MM, [facility] MammographyMammogram BI-RADS: 0 Incomplete: Additional Imaging Evaluation NeededVAGINAL PATHOGENS DNA [id number] 00:00:00 Test Item Value Reference Range Interpretation Comments CATA SPECIES (test code = ) POSITIVE G. VAGINALIS (test code = 93375) POSITIVE T. VAGINALIS (test code = 01421) NEGATIVE VAGINAL PATHOGENS DNA [id number] 00:00:00 Test Item Value Reference Range Interpretation Comments CATA SPECIES (test code = ) POSITIVE G. VAGINALIS (test code = 55971) POSITIVE T. VAGINALIS (test code = ) NEGATIVE CT/NG, NAAT, [id number] 21:50:47 Test Item Value Reference Range Interpretation Comments GONORRHEA, NAAT NEGATIVE NEGATIVE IMPORTA NT NOTICE: SEE (test code = [place] [address]) [email or web address] Note: Assay methodology is nucleic acid amplification b y media/instructional designer m ediated amplification ( TMA) utilizing the A ptima Combo 2 Assay. CHLAMYDIA, NAAT NEGATIVE NEGATIVE IMPORTA NT NOTICE: SEE (test code = [place] [address]) [email or web address] [email or web address] Note: Assay methodology is nucleic acid amplification b y media/instructional designer m ediated amplification ( TMA) utilizing the A ptima Combo 2 Assay. HIV 1/2 4TH GEN, RFLX [id number] 04:59:08 Test Item Value Reference Range Interpretation Comments HIV 1/2 4TH GEN, RFLX CONF (test NON-REACTIVE NON-REACTIVE code = 3514) HEPATITIS PANEL, [id number] 04:59:08 Test Item Value Reference Range Interpretation Comments HEPATITIS A IgM (test NON-REACTIVE NON-REACTIVE code = 18150) HEPATITIS B CORE IgM NON-REACTIVE NON-REACTIVE (test code = 4644) HEPATITIS B SURF AG NON-REACTIVE NON-REACTIVE (test code = 2739) HEPATITIS C ANTIBODY NON-REACTIVE NON-REACTIVE (test code = 4675) INTERPRETATION (NOTE) Hepatitis A HEPATITIS A: (test code sero logy shows no = 2552) evidence of acu te hepatitis A. INTERPRETATION (NOTE) Hepatitis B HEPATITIS B: (test code sero logy shows no = 28145) evidence of acu te hepatitis B and no indication of exposure to hepatitis B vir us in the previous ce eight months. INTERPRETATION (NOTE) Hepatitis C HEPATITIS C: (test code sero logy shows no = 69776) evidence of exposure to hepatitisC viru s at this time. I t can take up to 12 months after exposure tothe hepatitis C vir us for antibodies to become detectab le in the blood in certain patient s. [id number] 04:17:56 Test Item Value Reference Range Interpretation Comments RPR RESULT (test NON-REACTIVE NON-REACTIVE code = 3501) RPR TITER (test NOT INDIC. NOT INDIC. UNLESS OTHE RWISE code = 3500) TITER INDICATED, ALL TESTING PERFORMED [facility] PATH[facility] LAB[facility] [address] [place] [address] 4 LABORATORY DIRE CTOR: THEO CASTILLO M.D. CLIA NUMBER [id number] [place] [id number] GC AND CHLAMYDIA, AMPLIFIED, [id number] 00:00:00 Test Item Value Reference Range Interpretation Comments GONORRHEA, NAAT (test code = 49734) NEGATIVE CHLAMYDIA, NAAT (test code = 10397) NEGATIVE HIV AB/AG COMBO RFLX [id number] 00:00:00 Test Item Value Reference Range Interpretation Comments HIV 1/2 4TH GEN, RFLX CONF (test NON-REACTIVE code = 3514) ACUTE HEPATITIS [id number] 00:00:00 Test Item Value Reference Range Interpretation Comments HEPATITIS A IgM (test code = NON-REACTIVE 04787) HEPATITIS B CORE IgM (test code NON-REACTIVE = 4644) HEPATITIS B SURF AG (test code = NON-REACTIVE 9) HEPATITIS C ANTIBODY (test code NON-REACTIVE = 4675) INTERPRETATION HEPATITIS A: (NOTE) (test code = 2552) INTERPRETATION HEPATITIS B: (NOTE) (test code = 57200) INTERPRETATION HEPATITIS C: (NOTE) (test code = 04199) [id number] 00:00:00 Test Item Value Reference Range Interpretation Comments RPR RESULT (test code = NON-REACTIVE 3501) RPR TITER (test code = 3500) NOT INDIC. TITER [id number] 00:00:00 Test Item Value Reference Range Interpretation Comments RPR RESULT (test code = NON-REACTIVE 3501) RPR TITER (test code = 3500) NOT INDIC. TITER GC AND CHLAMYDIA, AMPLIFIED, [id number] 00:00:00 Test Item Value Reference Range Interpretation Comments GONORRHEA, NAAT (test code = 59249) NEGATIVE CHLAMYDIA, NAAT (test code = 00795) NEGATIVE GC AND CHLAMYDIA, AMPLIFIED, [id number] 00:00:00 Test Item Value Reference Range Interpretation Comments GONORRHEA, NAAT (test code = 96149) NEGATIVE CHLAMYDIA, NAAT (test code = 66763) NEGATIVE HIV AB/AG COMBO RFLX [id number] 00:00:00 Test Item Value Reference Range Interpretation Comments HIV 1/2 4TH GEN, RFLX CONF (test NON-REACTIVE code = 3514) HIV AB/AG COMBO RFLX [id number] 00:00:00 Test Item Value Reference Range Interpretation Comments HIV 1/2 4TH GEN, RFLX CONF (test NON-REACTIVE code = 3514) ACUTE HEPATITIS [id number] 00:00:00 Test Item Value Reference Range Interpretation Comments HEPATITIS A IgM (test code = NON-REACTIVE 12143) HEPATITIS B CORE IgM (test code NON-REACTIVE = 4644) HEPATITIS B SURF AG (test code = NON-REACTIVE 2739) HEPATITIS C ANTIBODY (test code NON-REACTIVE = 4675) INTERPRETATION HEPATITIS A: (NOTE) (test code = 2552) INTERPRETATION HEPATITIS B: (NOTE) (test code = 83214) INTERPRETATION HEPATITIS C: (NOTE) (test code = 56788) ACUTE HEPATITIS [id number] 00:00:00 Test Item Value Reference Range Interpretation Comments HEPATITIS A IgM (test code = NON-REACTIVE 83030) HEPATITIS B CORE IgM (test code NON-REACTIVE = 4644) HEPATITIS B SURF AG (test code = NON-REACTIVE 2739) HEPATITIS C ANTIBODY (test code NON-REACTIVE = 4675) INTERPRETATION HEPATITIS A: (NOTE) (test code = 2552) INTERPRETATION HEPATITIS B: (NOTE) (test code = 71479) INTERPRETATION HEPATITIS C: (NOTE) (test code = 32858) [id number] 00:00:00 Test Item Value Reference Range Interpretation Comments RPR RESULT (test code = NON-REACTIVE 3501) RPR TITER (test code = 3500) NOT INDIC. TITER [id number] 00:00:00 Test Item Value Reference Range Interpretation Comments RPR RESULT (test code = NON-REACTIVE 3501) RPR TITER (test code = 3500) NOT INDIC. TITER [id number] 00:00:00 Test Item Value Reference Range Interpretation Comments RPR RESULT (test code = NON-REACTIVE 3501) RPR TITER (test code = 3500) NOT INDIC. TITER GC AND CHLAMYDIA, AMPLIFIED, [id number] 00:00:00 Test Item Value Reference Range Interpretation Comments GONORRHEA, NAAT (test code = 63242) NEGATIVE CHLAMYDIA, NAAT (test code = 22785) NEGATIVE GC AND CHLAMYDIA, AMPLIFIED, [id number] 00:00:00 Test Item Value Reference Range Interpretation Comments GONORRHEA, NAAT (test code = 86434) NEGATIVE CHLAMYDIA, NAAT (test code = 44353) NEGATIVE HIV AB/AG COMBO RFLX [id number] 00:00:00 Test Item Value Reference Range Interpretation Comments HIV 1/2 4TH GEN, RFLX CONF (test NON-REACTIVE code = 3514) HIV AB/AG COMBO RFLX [id number] 00:00:00 Test Item Value Reference Range Interpretation Comments HIV 1/2 4TH GEN, RFLX CONF (test NON-REACTIVE code = 3514) ACUTE HEPATITIS [id number] 00:00:00 Test Item Value Reference Range Interpretation Comments HEPATITIS A IgM (test code = NON-REACTIVE 05844) HEPATITIS B CORE IgM (test code NON-REACTIVE = 4644) HEPATITIS B SURF AG (test code = NON-REACTIVE 2739) HEPATITIS C ANTIBODY (test code NON-REACTIVE = 4675) INTERPRETATION HEPATITIS A: (NOTE) (test code = 2552) INTERPRETATION HEPATITIS B: (NOTE) (test code = 28272) INTERPRETATION HEPATITIS C: (NOTE) (test code = 42206) ACUTE HEPATITIS [id number] 00:00:00 Test Item Value Reference Range Interpretation Comments HEPATITIS A IgM (test code = NON-REACTIVE 91697) HEPATITIS B CORE IgM (test code NON-REACTIVE = 4644) HEPATITIS B SURF AG (test code = NON-REACTIVE 9469) HEPATITIS C ANTIBODY (test code NON-REACTIVE = 4688) INTERPRETATION HEPATITIS A: (NOTE) (test code = 2552) INTERPRETATION HEPATITIS B: (NOTE) (test code = 71671) INTERPRETATION HEPATITIS C: (NOTE) (test code = 10922) [id number] 00:00:00 Test Item Value Reference Range Interpretation Comments RPR RESULT (test code = NON-REACTIVE 3501) RPR TITER (test code = 3500) NOT INDIC. TITER [id number] 00:00:00 Test Item Value Reference Range Interpretation Comments RPR RESULT (test code = NON-REACTIVE 3501) RPR TITER (test code = 3500) NOT INDIC. TITER [id number] 00:00:00 Test Item Value Reference Range Interpretation Comments RPR RESULT (test code = NON-REACTIVE 3501) RPR TITER (test code = 3500) NOT INDIC. TITER Complete Metabolic [id number] 18:07:03 Test Item Value Reference Range Interpretation Comments NA (test code = 139 mmol/L 135-145 8557851025) K (test code = 3.6 mmol/L 3.5-5.0 9735807698) CL (test code = 109 mmol/L 98-108 H 2202208512) CO2 TOTAL (test code = 19 mmol/L 23-31 L 4845596348) AGAP (test code = 2-16 9842652047) BUN (test code = 10 mg/dL 7-23 9548737797) GLUCOSE (test code = 112 mg/dL 70-110 H 5571385129) CREATININE (test code = 0.89 mg/dL 0.50-1.04 4863894668) TOTAL BILI (test code = 0.3 mg/dL 0.1-1.0 3410074940) CALCIUM (test code = 8.1 mg/dL 8.6-10.6 L 3297509663) T PROTEIN (test code = 8.1 g/dL 6.3-8.2 6510648410) ALBUMIN (test code = 4.3 g/dL 3.5-5.0 5733580259) ALK PHOS (test code = 121 U/L 34-122 0935680002) ALTv (test code = 22 U/L 5-35 1742-6) AST(SGOT) (test code = 33 U/L 13-40 3585953479) eGFR (test code = mL/min/1.73m2 1545654440) TOMA (test code = TOMA) Association of [...] tests). Lab Interpretation Abnormal (test code = 18531-7) [facility] [id number] 18:06:22 Test Item Value Reference Range Interpretation Comments LIPASE (test code = 6923046364) 65 U/L 0-220 Lab Interpretation (test code = Normal 51854-7) [facility] 18:03:42 Test Item Value Reference Range Interpretation Comments APPEARANCE (test code = Hazy Clear A 8001289582) COLOR (test code = Reta Yellow A 7699499838) PH (test code = 4.8-8.0 3714153392) SP GRAVITY (test code = 1.003-1.030 3992056878) GLU U QUAL (test code = Normal Normal 3651474823) BLOOD (test code = 1+ Negative A 3553061098) KETONES (test code = Negative Negative [id number]) PROTEIN (test code = 30 mg/dL Negative A 2887-8) UROBILIN (test code = 4.0 mg/dL Normal A 2350398069) BILIRUBIN (test code = Negative Negative 1435723595) NITRITE (test code = Positive Negative A 4460830568) LEUK CHARLES (test code = Negative Negative 6594536891) RBC/HPF (test code = See_Comment H [Autom ated message] 1284139569) The system [employer] generated this result transmit tomasa reference range : 0 - 3 HPF. The refe rence range was not u sed to interpret th is result as normal/abnormal . WBC/HPF (test code = See_Comment H [Autom ated message] 9956806309) The system [employer] generated this result transmit tomasa reference range : 0 - 5 HPF. The refe rence range was not u sed to interpret th is result as normal/abnormal . BACTERIA (test code = Many Negative A 1786398605) MUCOUS (test code = Marked Negative LPF A 6564838169) SQ EPITH (test code = HPF 7506216784) Lab Interpretation (test Abnormal code = 11494-9) [facility] with [id number] 17:53:21 Test Item Value Reference Range Interpretation Comments WBC (test code = See_Comment [Automated message] 6690-2) The system [employer] generated this result transmitted ref erence range: 4.30 - 1 1.10 10*3/?L. The re ference range was not u sed to interpret this result as normal/abnor mal. RBC (test code = See_Comment [Automated message] 789-8) The system [employer] generated this result transmitted ref erence range: [...] RDW-SD (test code 48.3 fL 39.0-49.9 = 79721-1) RDW-CV (test code 15.2 % 12.0-15.5 = 788-0) PLT (test code = See_Comment [Automated message] 777-3) The system whic h generated this result transmitted ref erence range: 166 - 35 8 10*3/?L. The re ference range was not u sed to interpret this result as normal/abnor mal. MPV (test code = 9.5 fL 9.5-12.9 63429-4) NRBC/100 WBC (test See_Comment [Automat ed message] code = 8884838057) The syste m which generated this result transmitted ref erence range: 0.0 - 10 .0 /100 WBCs. The refer ence range was not u sed to interpret this result as normal/abnor mal. NRBC x10^3 (test <0.01 See_Comment [Automated message] code = 1070102938) The syste m which generated this result transmitted ref erence range: 10*3/?L. The reference range was not used to interpr et this result as normal/abnormal . GRAN MAT (NEUT) % 67.1 % (test code = 770-8) IMM GRAN % (test 0.50 % code = 9689272686) LYMPH % (test code 21.1 % = 736-9) MONO % (test code 10.6 % = 5905-5) EOS % (test code = 0.5 % 713-8) BASO % (test code 0.2 % = 706-2) GRAN MAT 5.75 10*3/uL 1.88-7.09 x10^3(ANC) (test code = 2288369976) IMM GRAN x10^3 0.04 10*3/uL 0.00-0.06 (test code = 3231217925) LYMPH x10^3 (test 1.81 10*3/uL 1.32-3.29 code = 731-0) MONO x10^3 (test 0.91 10*3/uL 0.33-0.92 code = 742-7) EOS x10^3 (test 0.04 10*3/uL 0.03-0.39 code = 711-2) BASO x10^3 (test <0.03 0.01-0.07 code = 704-7) [id number] Test Item Value Reference Range Interpretation Comments POCT PREG (test code = 1605) negative On board controls acceptable with C present Line (test code = 3574) Lab Interpretation (test code = Normal 71405-8) [facility] [id number] 00:00:00 Test Item Value Reference Range Interpretation [...] NUCLEATED RBCS (test code = 0.00 K/UL 61863) CBC W/AUTO [id number] 00:00:00 Test Item Value Reference Range Interpretation [...] NUCLEATED RBCS (test code = 0.00 K/UL 56373) HEMOGLOBIN [id number] 00:00:00 Test Item Value Reference Range Interpretation Comments HEMOGLOBIN A1c (test code = 47323) 5.5 % HEMOGLOBIN [id number] 00:00:00 Test Item Value Reference Range Interpretation Comments HEMOGLOBIN A1c (test code = 93621) 5.5 % LIPID [id number] 00:00:00 Test Item Value Reference Range Interpretation Comments CHOLESTEROL (test code = 2210) 160 MG/DL TRIGLYCERIDES (test code = 2232) 237 MG/DL HDL CHOLESTEROL (test code = 2220) 41 MG/DL CALC LDL CHOL (test code = 2237) 86 MG/DL RISK RATIO LDL/HDL (test code = 2.10 RATIO 2238) COMPREHENSIVE METABOLIC [id number] 00:00:00 Test Item Value Reference Range Interpretation Comments GLUCOSE (test code = 2217) 109 MG/DL BUN (test code = 2208) 12 MG/DL CREATININE (test code = 2214) 0.83 MG/DL eGFR AMER. (test code 98 ML/MIN/1.73 = 89222) eGFR NON- AMER. (test 85 ML/MIN/1.73 code = 64212) CALC BUN/CREAT (test code = 14 RATIO 2235) SODIUM (test code = 223) 140 MEQ/L POTASSIUM (test code = 2228) [...] ALT (test code = 2219) 15 U/L [id number] 00:00:00 Test Item Value Reference Range Interpretation Comments TSH, THIRD GENERATION (test code 0.889 UIU/ML = 2821) [id number] 00:00:00 Test Item Value Reference Range Interpretation Comments TSH, THIRD GENERATION (test code 0.889 UIU/ML = 2821) VITAMIN D, 25 [id number] 00:00:00 Test Item Value Reference Range Interpretation Comments VITAMIN D, 25 OH (test code = 4958) 15 NG/ML CBC W/AUTO [id number] 00:00:00 Test Item Value Reference Range Interpretation [...] NUCLEATED RBCS (test code = 0.00 K/UL 43690) CBC W/AUTO [id number] 00:00:00 Test Item Value Reference Range Interpretation [...] NUCLEATED RBCS (test code = 0.00 K/UL 51730) CBC W/AUTO [id number] 00:00:00 Test Item Value Reference Range Interpretation [...] NUCLEATED RBCS (test code = 0.00 K/UL 89747) HEMOGLOBIN [id number] 00:00:00 Test Item Value Reference Range Interpretation Comments HEMOGLOBIN A1c (test code = 27215) 5.5 % HEMOGLOBIN [id number] 00:00:00 Test Item Value Reference Range Interpretation Comments HEMOGLOBIN A1c (test code = 89026) 5.5 % HEMOGLOBIN [id number] 00:00:00 Test Item Value Reference Range Interpretation Comments HEMOGLOBIN A1c (test code = 60697) 5.5 % LIPID [id number] 00:00:00 Test Item Value Reference Range Interpretation Comments CHOLESTEROL (test code = 2210) 160 MG/DL TRIGLYCERIDES (test code = 2232) 237 MG/DL HDL CHOLESTEROL (test code = 2220) 41 MG/DL CALC LDL CHOL (test code = 2237) 86 MG/DL RISK RATIO LDL/HDL (test code = 2.10 RATIO 2238) LIPID [id number] 00:00:00 Test Item Value Reference Range Interpretation Comments CHOLESTEROL (test code = 2210) 160 MG/DL TRIGLYCERIDES (test code = 2232) 237 MG/DL HDL CHOLESTEROL (test code = 2220) 41 MG/DL CALC LDL CHOL (test code = 2237) 86 MG/DL RISK RATIO LDL/HDL (test code = 2.10 RATIO 2238) COMPREHENSIVE METABOLIC [id number] 00:00:00 Test Item Value Reference Range Interpretation Comments GLUCOSE (test code = 2217) 109 MG/DL BUN (test code = 2208) 12 MG/DL CREATININE (test code = 2214) 0.83 MG/DL eGFR AMER. (test code 98 ML/MIN/1.73 = 95040) eGFR NON- AMER. (test 85 ML/MIN/1.73 code = 30800) CALC BUN/CREAT (test code = 14 RATIO [...] code = 2219) 15 U/L COMPREHENSIVE METABOLIC [id number] 00:00:00 Test Item Value Reference Range Interpretation Comments GLUCOSE (test code = 2217) 109 MG/DL BUN (test code = 2208) 12 MG/DL CREATININE (test code = 2214) 0.83 MG/DL eGFR AMER. (test code 98 ML/MIN/1.73 = 82083) eGFR NON- AMER. (test 85 ML/MIN/1.73 code = 04449) CALC BUN/CREAT (test code = 14 RATIO [...] ALT (test code = 2219) 15 U/L [id number] 00:00:00 Test Item Value Reference Range Interpretation Comments TSH, THIRD GENERATION (test code 0.889 UIU/ML = 2821) [id number] 00:00:00 Test Item Value Reference Range Interpretation Comments TSH, THIRD GENERATION (test code 0.889 UIU/ML = 2821) [id number] 00:00:00 Test Item Value Reference Range Interpretation Comments TSH, THIRD GENERATION (test code 0.889 UIU/ML = 2821) VITAMIN D, 25 [id number] 00:00:00 Test Item Value Reference Range Interpretation Comments VITAMIN D, 25 OH (test code = 4958) 15 NG/ML VITAMIN D, 25 [id number] 00:00:00 Test Item Value Reference Range Interpretation Comments VITAMIN D, 25 OH (test code = 4958) 15 NG/ML CBC W/AUTO [id number] 00:00:00 Test Item Value Reference Range Interpretation [...] NUCLEATED RBCS (test code = 0.00 K/UL 19723) CBC W/AUTO [id number] 00:00:00 Test Item Value Reference Range Interpretation [...] NUCLEATED RBCS (test code = 0.00 K/UL 39999) CBC W/AUTO [id number] 00:00:00 Test Item Value Reference Range Interpretation [...] NUCLEATED RBCS (test code = 0.00 K/UL 75873) HEMOGLOBIN [id number] 00:00:00 Test Item Value Reference Range Interpretation Comments HEMOGLOBIN A1c (test code = 60080) 5.5 % HEMOGLOBIN [id number] 00:00:00 Test Item Value Reference Range Interpretation Comments HEMOGLOBIN A1c (test code = 78862) 5.5 % HEMOGLOBIN [id number] 00:00:00 Test Item Value Reference Range Interpretation Comments HEMOGLOBIN A1c (test code = 87786) 5.5 % LIPID [id number] 00:00:00 Test Item Value Reference Range Interpretation Comments CHOLESTEROL (test code = 2210) 160 MG/DL TRIGLYCERIDES (test code = 2232) 237 MG/DL HDL CHOLESTEROL (test code = 2220) 41 MG/DL CALC LDL CHOL (test code = 2237) 86 MG/DL RISK RATIO LDL/HDL (test code = 2.10 RATIO 2238) LIPID [id number] 00:00:00 Test Item Value Reference Range Interpretation Comments CHOLESTEROL (test code = 2210) 160 MG/DL TRIGLYCERIDES (test code = 2232) 237 MG/DL HDL CHOLESTEROL (test code = 2220) 41 MG/DL CALC LDL CHOL (test code = 2237) 86 MG/DL RISK RATIO LDL/HDL (test code = 2.10 RATIO 2238) COMPREHENSIVE METABOLIC [id number] 00:00:00 Test Item Value Reference Range Interpretation Comments GLUCOSE (test code = 2217) 109 MG/DL BUN (test code = 2208) 12 MG/DL CREATININE (test code = 2214) 0.83 MG/DL eGFR AMER. (test code 98 ML/MIN/1.73 = 89245) eGFR NON- AMER. (test 85 ML/MIN/1.73 code = 63542) CALC BUN/CREAT (test code = 14 RATIO [...] code = 2219) 15 U/L COMPREHENSIVE METABOLIC [id number] 00:00:00 Test Item Value Reference Range Interpretation Comments GLUCOSE (test code = 2217) 109 MG/DL BUN (test code = 2208) 12 MG/DL CREATININE (test code = 2214) 0.83 MG/DL eGFR AMER. (test code 98 ML/MIN/1.73 = 03165) eGFR NON- AMER. (test 85 ML/MIN/1.73 code = 15536) CALC BUN/CREAT (test code = 14 RATIO [...] ALT (test code = 2219) 15 U/L [id number] 00:00:00 Test Item Value Reference Range Interpretation Comments TSH, THIRD GENERATION (test code 0.889 UIU/ML = 2821) [id number] 00:00:00 Test Item Value Reference Range Interpretation Comments TSH, THIRD GENERATION (test code 0.889 UIU/ML = 2821) [id number] 00:00:00 Test Item Value Reference Range Interpretation Comments TSH, THIRD GENERATION (test code 0.889 UIU/ML = 2821) VITAMIN D, 25 [id number] 00:00:00 Test Item Value Reference Range Interpretation Comments VITAMIN D, 25 OH (test code = 4958) 15 NG/ML VITAMIN D, 25 [id number] 00:00:00 Test Item Value Reference Range Interpretation Comments VITAMIN D, 25 OH (test code = 4958) 15 NG/ML PAP TEST, THINPREP, [id number] 00:00:00 Test Item Value Reference Range Interpretation Comments SOURCE: (test code = Cervical/Endocervical 8001) SLIDES: (test code = 1 8011) LMP: (test code = 8021) 06/06/2020 SPECIMEN ADEQUACY: (NOTE) (test code = 89186) INTERPRETATION: (test NILM/NO EPITH. code = 73129) ABNORMALITY;SEE BELOW WOUND/OSTOMY CLINICAL NURSE SPECIALIST: (test Vincent code = 8101) VALENTÍN Marquez(ASCP) LOCATION: (test code = (NOTE) 16138) CPT: (test code = 8140) (NOTE) HPV HIGH RISK WITH GENOTYPE, [id number] 00:00:00 Test Item Value Reference Range Interpretation Comments HPV HIGH RISK INTERP (test NEGATIVE code = 35864) HPV 16 (test code = 30283) TEST NOT PERFORMED HPV 18 (test code = 74773) TEST NOT PERFORMED HPV, HR, OTHER GENOTYPES TEST NOT PERFORMED (test code = 26511) PAP TEST, THINPREP, [id number] 00:00:00 Test Item Value Reference Range Interpretation Comments SOURCE: (test code = Cervical/Endocervical 8001) SLIDES: (test code = 1 8011) LMP: (test code = 8021) 06/06/2020 SPECIMEN ADEQUACY: (NOTE) (test code = 92592) INTERPRETATION: (test NILM/NO EPITH. code = 19800) ABNORMALITY;SEE BELOW WOUND/OSTOMY CLINICAL NURSE SPECIALIST: (test Vincent code = 8101) VALENTÍN Marquez(ASCP) LOCATION: (test code = (NOTE) 58261) CPT: (test code = 8140) (NOTE) PAP TEST, THINPREP, [id number] 00:00:00 Test Item Value Reference Range Interpretation Comments SOURCE: (test code = Cervical/Endocervical 8001) SLIDES: (test code = 1 8011) LMP: (test code = 8021) 06/06/2020 SPECIMEN ADEQUACY: (NOTE) (test code = 32137) INTERPRETATION: (test NILM/NO EPITH. code = 54347) ABNORMALITY;SEE BELOW WOUND/OSTOMY CLINICAL NURSE SPECIALIST: (test Vincent code = 8101) VALENTÍN Marquez(ASCP) LOCATION: (test code = (NOTE) 04948) CPT: (test code = 8140) (NOTE) HPV HIGH RISK WITH GENOTYPE, [id number] 00:00:00 Test Item Value Reference Range Interpretation Comments HPV HIGH RISK INTERP (test NEGATIVE code = 33660) HPV 16 (test code = 42830) TEST NOT PERFORMED HPV 18 (test code = 21484) TEST NOT PERFORMED HPV, HR, OTHER GENOTYPES TEST NOT PERFORMED (test code = 73683) HPV HIGH RISK WITH GENOTYPE, [id number] 00:00:00 Test Item Value Reference Range Interpretation Comments HPV HIGH RISK INTERP (test NEGATIVE code = 46127) HPV 16 (test code = 14965) TEST NOT PERFORMED HPV 18 (test code = 69893) TEST NOT PERFORMED HPV, HR, OTHER GENOTYPES TEST NOT PERFORMED (test code = 42836) PAP TEST, THINPREP, [id number] 00:00:00 Test Item Value Reference Range Interpretation Comments SOURCE: (test code = Cervical/Endocervical 8001) SLIDES: (test code = 1 8011) LMP: (test code = 8021) 06/06/2020 SPECIMEN ADEQUACY: (NOTE) (test code = 75110) INTERPRETATION: (test NILM/NO EPITH. code = 37408) ABNORMALITY;SEE BELOW WOUND/OSTOMY CLINICAL NURSE SPECIALIST: (test Vincent code = 8101) VALENTÍN Marquez(ASCP) LOCATION: (test code = (NOTE) 21775) CPT: (test code = 8140) (NOTE) PAP TEST, THINPREP, [id number] 00:00:00 Test Item Value Reference Range Interpretation Comments SOURCE: (test code = Cervical/Endocervical 8001) SLIDES: (test code = 1 8011) LMP: (test code = 8021) 06/06/2020 SPECIMEN ADEQUACY: (NOTE) (test code = 95491) INTERPRETATION: (test NILM/NO EPITH. code = 45603) ABNORMALITY;SEE BELOW WOUND/OSTOMY CLINICAL NURSE SPECIALIST: (test Vincent code = 8101) VALENTÍN Marquez(ASCP) LOCATION: (test code = (NOTE) 26910) CPT: (test code = 8140) (NOTE) HPV HIGH RISK WITH GENOTYPE, [id number] 00:00:00 Test Item Value Reference Range Interpretation Comments HPV HIGH RISK INTERP (test NEGATIVE code = 63107) HPV 16 (test code = 41104) TEST NOT PERFORMED HPV 18 (test code = 74312) TEST NOT PERFORMED HPV, HR, OTHER GENOTYPES TEST NOT PERFORMED (test code = 59673) HPV HIGH RISK WITH GENOTYPE, [id number] 00:00:00 Test Item Value Reference Range Interpretation Comments HPV HIGH RISK INTERP (test NEGATIVE code = 71285) HPV 16 (test code = 08345) TEST NOT PERFORMED HPV 18 (test code = 45349) TEST NOT PERFORMED HPV, HR, OTHER GENOTYPES TEST NOT PERFORMED (test code = 39184) HIV AB/AG COMBO RFLX [id number] 00:00:00 Test Item Value Reference Range Interpretation Comments HIV 1/2 4TH GEN, RFLX CONF (test NON-REACTIVE code = 3514) GC AND CHLAMYDIA AMPLIFIED, [id number] 00:00:00 Test Item Value Reference Range Interpretation Comments GONORRHEA, TMA (test code = 80565) NEGATIVE CHLAMYDIA, TMA (test code = 63187) NEGATIVE ACUTE HEPATITIS [id number] 00:00:00 Test Item Value Reference Range Interpretation Comments HEPATITIS A IgM (test code = NON-REACTIVE 45732) HEPATITIS B CORE IgM (test code NON-REACTIVE = 8744) HEPATITIS B SURF AG (test code = NON-REACTIVE 1089) HEPATITIS C ANTIBODY (test code NON-REACTIVE = 4675) INTERPRETATION HEPATITIS A: (NOTE) (test code = 2552) INTERPRETATION HEPATITIS B: (NOTE) (test code = 76582) INTERPRETATION HEPATITIS C: (NOTE) (test code = 26329) [id number] 00:00:00 Test Item Value Reference Range Interpretation Comments RPR RESULT (test code = NON-REACTIVE 3501) RPR TITER (test code = 3500) NOT INDIC. TITER [id number] 00:00:00 Test Item Value Reference Range Interpretation Comments RPR RESULT (test code = NON-REACTIVE 3501) RPR TITER (test code = 3500) NOT INDIC. TITER VAGINAL PATHOGENS DNA [id number] 00:00:00 Test Item Value Reference Range Interpretation Comments CATA SPECIES (test code = ) NEGATIVE G. VAGINALIS (test code = ) POSITIVE T. VAGINALIS (test code = ) NEGATIVE GC AND CHLAMYDIA AMPLIFIED, [id number] 00:00:00 Test Item Value Reference Range Interpretation Comments GONORRHEA, TMA (test code = 40267) NEGATIVE CHLAMYDIA, TMA (test code = 71978) NEGATIVE HIV AB/AG COMBO RFLX [id number] 00:00:00 Test Item Value Reference Range Interpretation Comments HIV 1/2 4TH GEN, RFLX CONF (test NON-REACTIVE code = 3514) GC AND CHLAMYDIA AMPLIFIED, [id number] 00:00:00 Test Item Value Reference Range Interpretation Comments GONORRHEA, TMA (test code = 70730) NEGATIVE CHLAMYDIA, TMA (test code = 48217) NEGATIVE HIV AB/AG COMBO RFLX [id number] 00:00:00 Test Item Value Reference Range Interpretation Comments HIV 1/2 4TH GEN, RFLX CONF (test NON-REACTIVE code = 3514) ACUTE HEPATITIS [id number] 00:00:00 Test Item Value Reference Range Interpretation Comments HEPATITIS A IgM (test code = NON-REACTIVE 83241) HEPATITIS B CORE IgM (test code NON-REACTIVE = 4644) HEPATITIS B SURF AG (test code = NON-REACTIVE 2739) HEPATITIS C ANTIBODY (test code NON-REACTIVE = 4675) INTERPRETATION HEPATITIS A: (NOTE) (test code = 2552) INTERPRETATION HEPATITIS B: (NOTE) (test code = 45038) INTERPRETATION HEPATITIS C: (NOTE) (test code = 06341) ACUTE HEPATITIS [id number] 00:00:00 Test Item Value Reference Range Interpretation Comments HEPATITIS A IgM (test code = NON-REACTIVE 39216) HEPATITIS B CORE IgM (test code NON-REACTIVE = 4644) HEPATITIS B SURF AG (test code = NON-REACTIVE 2739) HEPATITIS C ANTIBODY (test code NON-REACTIVE = 4675) INTERPRETATION HEPATITIS A: (NOTE) (test code = 2552) INTERPRETATION HEPATITIS B: (NOTE) (test code = 13472) INTERPRETATION HEPATITIS C: (NOTE) (test code = 03722) [id number] 00:00:00 Test Item Value Reference Range Interpretation Comments RPR RESULT (test code = NON-REACTIVE 3501) RPR TITER (test code = 3500) NOT INDIC. TITER [id number] 00:00:00 Test Item Value Reference Range Interpretation Comments RPR RESULT (test code = NON-REACTIVE 3501) RPR TITER (test code = 3500) NOT INDIC. TITER [id number] 00:00:00 Test Item Value Reference Range Interpretation Comments RPR RESULT (test code = NON-REACTIVE 3501) RPR TITER (test code = 3500) NOT INDIC. TITER VAGINAL PATHOGENS DNA [id number] 00:00:00 Test Item Value Reference Range Interpretation Comments CATA SPECIES (test code = ) NEGATIVE G. VAGINALIS (test code = 19045) POSITIVE T. VAGINALIS (test code = 26059) NEGATIVE VAGINAL PATHOGENS DNA [id number] 00:00:00 Test Item Value Reference Range Interpretation Comments CATA SPECIES (test code = ) NEGATIVE G. VAGINALIS (test code = 22995) POSITIVE T. VAGINALIS (test code = 23941) NEGATIVE HIV AB/AG COMBO RFLX [id number] 00:00:00 Test Item Value Reference Range Interpretation Comments HIV 1/2 4TH GEN, RFLX CONF (test NON-REACTIVE code = 3514) GC AND CHLAMYDIA AMPLIFIED, [id number] 00:00:00 Test Item Value Reference Range Interpretation Comments GONORRHEA, TMA (test code = 94347) NEGATIVE CHLAMYDIA, TMA (test code = 28524) NEGATIVE GC AND CHLAMYDIA AMPLIFIED, [id number] 00:00:00 Test Item Value Reference Range Interpretation Comments GONORRHEA, TMA (test code = 62402) NEGATIVE CHLAMYDIA, TMA (test code = 15973) NEGATIVE HIV AB/AG COMBO RFLX [id number] 00:00:00 Test Item Value Reference Range Interpretation Comments HIV 1/2 4TH GEN, RFLX CONF (test NON-REACTIVE code = 3514) ACUTE HEPATITIS [id number] 00:00:00 Test Item Value Reference Range Interpretation Comments HEPATITIS A IgM (test code = NON-REACTIVE 09016) HEPATITIS B CORE IgM (test code NON-REACTIVE = 4644) HEPATITIS B SURF AG (test code = NON-REACTIVE 7349) HEPATITIS C ANTIBODY (test code NON-REACTIVE = 4675) INTERPRETATION HEPATITIS A: (NOTE) (test code = 2552) INTERPRETATION HEPATITIS B: (NOTE) (test code = 31182) INTERPRETATION HEPATITIS C: (NOTE) (test code = 43075) ACUTE HEPATITIS [id number] 00:00:00 Test Item Value Reference Range Interpretation Comments HEPATITIS A IgM (test code = NON-REACTIVE 45986) HEPATITIS B CORE IgM (test code NON-REACTIVE = 4644) HEPATITIS B SURF AG (test code = NON-REACTIVE 2739) HEPATITIS C ANTIBODY (test code NON-REACTIVE = 4675) INTERPRETATION HEPATITIS A: (NOTE) (test code = 2552) INTERPRETATION HEPATITIS B: (NOTE) (test code = 18561) INTERPRETATION HEPATITIS C: (NOTE) (test code = 68095) [id number] 00:00:00 Test Item Value Reference Range Interpretation Comments RPR RESULT (test code = NON-REACTIVE 3501) RPR TITER (test code = 3500) NOT INDIC. TITER [id number] 00:00:00 Test Item Value Reference Range Interpretation Comments RPR RESULT (test code = NON-REACTIVE 3501) RPR TITER (test code = 3500) NOT INDIC. TITER [id number] 00:00:00 Test Item Value Reference Range Interpretation Comments RPR RESULT (test code = NON-REACTIVE 3501) RPR TITER (test code = 3500) NOT INDIC. TITER VAGINAL PATHOGENS DNA [id number] 00:00:00 Test Item Value Reference Range Interpretation Comments CATA SPECIES (test code = ) NEGATIVE G. VAGINALIS (test code = 25478) POSITIVE T. VAGINALIS (test code = 96239) NEGATIVE VAGINAL PATHOGENS DNA [id number] 00:00:00 Test Item Value Reference Range Interpretation Comments CATA SPECIES (test code = 70762) NEGATIVE G. VAGINALIS (test code = 61026) POSITIVE T. VAGINALIS (test code = 10380) NEGATIVE H. PYLORI AG, [id number] 00:00:00 Test Item Value Reference Range Interpretation Comments H. PYLORI AG, STOOL (test code = NEGATIVE 24670) H. PYLORI AG, [id number] 00:00:00 Test Item Value Reference Range Interpretation Comments H. PYLORI AG, STOOL (test code = NEGATIVE 12109) H. PYLORI AG, [id number] 00:00:00 Test Item Value Reference Range Interpretation Comments H. PYLORI AG, STOOL (test code = NEGATIVE 57294) H. PYLORI AG, [id number] 00:00:00 Test Item Value Reference Range Interpretation Comments H. PYLORI AG, STOOL (test code = NEGATIVE 75001) H. PYLORI AG, [id number] 00:00:00 Test Item Value Reference Range Interpretation Comments H. PYLORI AG, STOOL (test code = NEGATIVE 68463) COVID-19 (ID NOW RAPID TESTING)2020-02-02 23:10:00 Test Item Value Reference Range Interpretation Comments SARS-CoV-2 Rapid ID NOW Not Detected Not Detected (test code = 99413-4) TOMA (test code = TOMA) ID NOW COVID-19 Assay is an isothermal nucleic acid amplification test intended for the qualitative detection of nucleic acid from SARS-CoV-2 viral RNA in nasopharyngeal (HEALTH AND SAFETY CONSULTANT) specimens. It is used under Emergency Use [...] indicated. Lab Interpretation Normal (test code = 59005-2) [facility] Test Item Value Reference Range Interpretation Comments APPEARANCE (test code = Hazy Clear A 6351120900) COLOR (test code = Yellow Yellow 2208158616) PH (test code = 4.8-8.0 5538718922) SP GRAVITY (test code = 1.003-1.030 3136672139) GLU U QUAL (test code = Normal Normal 6904506008) BLOOD (test code = Negative Negative 3302867739) KETONES (test code = Negative Negative 2455677111) PROTEIN (test code = Negative Negative 2887-8) UROBILIN (test code = Normal Normal 7451431170) BILIRUBIN (test code = Negative Negative 7998571181) NITRITE (test code = Negative Negative 5150706242) LEUK CHARLES (test code = Negative Negative 3530581334) RBC/HPF (test code = See_Comment H [Autom ated message] 1660928065) The system [employer] generated this result transmitted ref erence range: 0 - 3 HP F. The reference range was not used to int erpret this result as normal/abnormal . WBC/HPF (test code = See_Comment [Autom ated message] [id number]) The system [employer] generated this result transmitted ref erence range: 0 - 5 HP F. The reference range was not used to int erpret this result as normal/abnormal . BACTERIA (test code = Few Negative A [id number]) MUCOUS (test code = Moderate Negative LPF A [id number]) SQ EPITH (test code = HPF [id number]) HYAL CAST (test code = See_Comment [Aut omated message] [id number]) The system [employer] generated this result transmitted ref erence range: <=2 LPF. The reference range was not used to int erpret this result as normal/abnormal . Lab Interpretation (test Abnormal code = 45400-1) [facility] [facility]. METABOLIC PANEL ([id number])2020-02-02 22:52:00 Test Item Value Reference Range Interpretation Comments NA (test code = 140 mmol/L 135-145 4957075110) K (test code = 3.8 mmol/L 3.5-5 0493870481) CL (test code = 111 mmol/L 98-108 H 4769154037) CO2 TOTAL (test code = 20 mmol/L 23-31 L 5124868639) AGAP (test code = 2-16 9121130154) BUN (test code = 10 mg/dL 7-23 4065010012) GLUCOSE (test code = 94 mg/dL 70-110 8510563141) CREATININE (test code = 1.11 mg/dL 0.5-1.04 H 4525935677) TOTAL BILI (test code = 0.4 mg/dL 0.1-1.3 2947285787) CALCIUM (test code = 8.8 mg/dL 8.6-10.6 4174323714) T PROTEIN (test code = 8.4 g/dL 6.3-8.2 H 9463800822) ALBUMIN (test code = 4.4 g/dL 3.5-5 3736554825) ALK PHOS (test code = 97 U/L 34-122 3840493205) ALTv (test code = 36 U/L 5-35 H 1742-6) AST(SGOT) (test code = 44 U/L 13-40 H 5035345763) eGFR Calculation mL/min/1.73m2 (Non-) (test code = 6926911737) eGFR Calculation mL/min/1.73m2 () (test code = 5624838646) TOMA (test code = TOMA) Association of [...] tests). Lab Interpretation Abnormal (test code = 01816-0) [facility] [id number] 22:35:331. No definite acute intra-abdominal or intrapelvic [...] without evidence of diverticulitis4. Hepatic steatosis5. Fibroids [facility] WITH [id number] 22:29:00 Test Item Value Reference Range Interpretation Comments WBC (test code = See_Comment [Automated message] 6690-2) The system [employer] generated this result transmitted ref erence range: 4.30 - 1 1.10 10*3/?L. The re ference range was not u sed to interpret this result as normal/abnor mal. RBC (test code = See_Comment [Automated message] 789-8) The system [employer] generated this result transmitted ref erence range: [...] RDW-SD (test code 45.1 fL 39-49.9 = 62270-9) RDW-CV (test code 14.2 % 12-15.5 = 788-0) PLT (test code = See_Comment [Automated message] 777-3) The system [employer] generated this result transmitted ref erence range: 166 - 35 8 10*3/?L. The re ference range was not u sed to interpret this result as normal/abnor mal. MPV (test code = 9.7 fL 9.5-12.9 20945-9) NRBC/100 WBC (test See_Comment [Automat ed message] code = 7649974229) The syste m which generated this result transmitted ref erence range: 0.0 - 10 .0 /100 WBCs. The refer ence range was not u sed to interpret this result as normal/abnor mal. NRBC x10^3 (test <0.01 See_Comment [Automated message] code = 3192500325) The syste m which generated this result transmitted ref erence range: 10*3/?L. The reference range was not used to interpr et this result as normal/abnormal . GRAN MAT (NEUT) % 59.9 % (test code = 770-8) IMM GRAN % (test 0.50 % code = 6988978705) LYMPH % (test code 29.0 % = 736-9) MONO % (test code 9.4 % = 5905-5) EOS % (test code = 0.9 % 713-8) BASO % (test code 0.3 % = 706-2) GRAN MAT 4.70 10*3/uL 1.88-7.09 x10^3(ANC) (test code = 8492066673) IMM GRAN x10^3 0.04 10*3/uL 0-0.06 (test code = 8471700182) LYMPH x10^3 (test 2.28 10*3/uL 1.32-3.29 code = 731-0) MONO x10^3 (test 0.74 10*3/uL 0.33-0.92 code = 742-7) EOS x10^3 (test 0.07 10*3/uL 0.03-0.39 code = 711-2) BASO x10^3 (test <0.03 0.01-0.07 code = 704-7) [facility] VW [id number] 22:28:10 1. Abnormal changes in the right upper lobe suggestive of pneumonia,including COVID-19 pneumonia. Disclaimer: Generally, the findings on chest imaging in COVID-19 are notspecific, and overlap with other infections, including influenza, H1N1,SARS and MERS.According to the Centers for Disease Control (CDC) and the [employer], viral testing remains the only specific method of diagnosiseven if CXR or CT findings are suggestive of COVID-19. PROCEDURE: CHEST XRAY 1 view, CLINICAL INDICATION: cough COMPARISON: None FINDINGS: Lungs: Abnormal opacity is seen in the right upper lobe. Remainder of thelungs is clear. Pleura: No pleural effusion or pneumothorax is seen. The heart is normal insize. No acute bony abnormality. [facility], Radiant Results Inft User - 02/02/2020 5:29 [...] Centers for Disease Control (CDC) and the [employer], viral testing remains the only specific method of diagnosiseven if CXR or CT findings aresuggestive of COVID-19.[facility] [id number] 21:58:00 Test Item Value Reference Range Interpretation Comments POCT PREG (test code = 1605) negative On board controls acceptable with present C Line (test code = 3574) POCT PREG LOT # (test code = 3575) [id number] POCT PREG TEST DATE (test 02-13-2021 code = 3576) Lab Interpretation (test code = Normal 20127-4) [facility] [id number] 00:00:00 Test Item Value Reference Range Interpretation Comments HEMOGLOBIN A1c (test code = 10703) 5.5 % HEMOGLOBIN [id number] 00:00:00 Test Item Value Reference Range Interpretation Comments HEMOGLOBIN A1c (test code = 49427) 5.5 % LIPID [id number] 00:00:00 Test Item Value Reference Range Interpretation Comments CHOLESTEROL (test code = 2210) 168 MG/DL TRIGLYCERIDES (test code = 2232) 143 MG/DL HDL CHOLESTEROL (test code = 2220) 57 MG/DL CALC LDL CHOL (test code = 2237) 87 MG/DL RISK RATIO LDL/HDL (test code = 1.53 RATIO 2238) COMPREHENSIVE METABOLIC [id number] 00:00:00 Test Item Value Reference Range Interpretation Comments GLUCOSE (test code = 2217) 93 MG/DL BUN (test code = 2208) 9 MG/DL CREATININE (test code = 2214) 0.86 MG/DL eGFR AMER. (test code 95 ML/MIN/1.73 = 62263) eGFR NON- AMER. (test 82 ML/MIN/1.73 code = 84138) CALC BUN/CREAT (test code = 10 RATIO [...] (test code = 2219) 30 U/L HEMOGLOBIN [id number] 00:00:00 Test Item Value Reference Range Interpretation Comments HEMOGLOBIN A1c (test code = 00078) 5.5 % HEMOGLOBIN [id number] 00:00:00 Test Item Value Reference Range Interpretation Comments HEMOGLOBIN A1c (test code = 31727) 5.5 % HEMOGLOBIN [id number] 00:00:00 Test Item Value Reference Range Interpretation Comments HEMOGLOBIN A1c (test code = 39587) 5.5 % LIPID [id number] 00:00:00 Test Item Value Reference Range Interpretation Comments CHOLESTEROL (test code = 2210) 168 MG/DL TRIGLYCERIDES (test code = 2232) 143 MG/DL HDL CHOLESTEROL (test code = 2220) 57 MG/DL CALC LDL CHOL (test code = 2237) 87 MG/DL RISK RATIO LDL/HDL (test code = 1.53 RATIO 2238) LIPID [id number] 00:00:00 Test Item Value Reference Range Interpretation Comments CHOLESTEROL (test code = 2210) 168 MG/DL TRIGLYCERIDES (test code = 2232) 143 MG/DL HDL CHOLESTEROL (test code = 2220) 57 MG/DL CALC LDL CHOL (test code = 2237) 87 MG/DL RISK RATIO LDL/HDL (test code = 1.53 RATIO 2238) COMPREHENSIVE METABOLIC [id number] 00:00:00 Test Item Value Reference Range Interpretation Comments GLUCOSE (test code = 2217) 93 MG/DL BUN (test code = 2208) 9 MG/DL CREATININE (test code = 2214) 0.86 MG/DL eGFR AMER. (test code 95 ML/MIN/1.73 = 73967) eGFR NON- AMER. (test 82 ML/MIN/1.73 code = 24621) CALC BUN/CREAT (test code = 10 RATIO [...] code = 2219) 30 U/L COMPREHENSIVE METABOLIC [id number] 00:00:00 Test Item Value Reference Range Interpretation Comments GLUCOSE (test code = 2217) 93 MG/DL BUN (test code = 2208) 9 MG/DL CREATININE (test code = 2214) 0.86 MG/DL eGFR AMER. (test code 95 ML/MIN/1.73 = 75971) eGFR NON- AMER. (test 82 ML/MIN/1.73 code = 79174) CALC BUN/CREAT (test code = 10 RATIO [...] (test code = 2219) 30 U/L HEMOGLOBIN [id number] 00:00:00 Test Item Value Reference Range Interpretation Comments HEMOGLOBIN A1c (test code = 82067) 5.5 % HEMOGLOBIN [id number] 00:00:00 Test Item Value Reference Range Interpretation Comments HEMOGLOBIN A1c (test code = 73443) 5.5 % HEMOGLOBIN [id number] 00:00:00 Test Item Value Reference Range Interpretation Comments HEMOGLOBIN A1c (test code = 93203) 5.5 % LIPID [id number] 00:00:00 Test Item Value Reference Range Interpretation Comments CHOLESTEROL (test code = 2210) 168 MG/DL TRIGLYCERIDES (test code = 2232) 143 MG/DL HDL CHOLESTEROL (test code = 2220) 57 MG/DL CALC LDL CHOL (test code = 2237) 87 MG/DL RISK RATIO LDL/HDL (test code = 1.53 RATIO 2238) LIPID [id number] 00:00:00 Test Item Value Reference Range Interpretation Comments CHOLESTEROL (test code = 2210) 168 MG/DL TRIGLYCERIDES (test code = 2232) 143 MG/DL HDL CHOLESTEROL (test code = 2220) 57 MG/DL CALC LDL CHOL (test code = 2237) 87 MG/DL RISK RATIO LDL/HDL (test code = 1.53 RATIO 2238) COMPREHENSIVE METABOLIC [id number] 00:00:00 Test Item Value Reference Range Interpretation Comments GLUCOSE (test code = 2217) 93 MG/DL BUN (test code = 2208) 9 MG/DL CREATININE (test code = 2214) 0.86 MG/DL eGFR AMER. (test code 95 ML/MIN/1.73 = 07633) eGFR NON- AMER. (test 82 ML/MIN/1.73 code = 35089) CALC BUN/CREAT (test code = 10 RATIO 2235) SODIUM (test code = 2231) 140 MEQ/L POTASSIUM (test code = 2228) 4.2 MEQ/L CHLORIDE (test code = 2215) 101 MEQ/L CARBON DIOXIDE (test code = 25 MEQ/L 2205) CALCIUM (test code = 2209) 9.3 MG/DL PROTEIN, TOTAL (test code = 7.4 G/DL 2228) ALBUMIN (test code = 220) 4.4 G/DL CALC GLOBULIN (test code = 3.0 G/DL 2240) CALC A/G RATIO (test code = 1.5 RATIO 2234) BILIRUBIN, TOTAL (test code = <0.2 MG/DL 220) ALKALINE PHOSPHATASE (test 94 U/L code = 2204) AST (test code = 2218) 24 U/L ALT (test code = 2219) 30 U/L COMPREHENSIVE METABOLIC [id number] 00:00:00 Test Item Value Reference Range Interpretation Comments GLUCOSE (test code = 2217) 93 MG/DL BUN (test code = 2208) 9 MG/DL CREATININE (test code = 2214) 0.86 MG/DL eGFR AMER. (test code 95 ML/MIN/1.73 = 48794) eGFR NON- AMER. (test 82 ML/MIN/1.73 code = 31690) CALC BUN/CREAT (test code = 10 RATIO [...] code = 2219) 30 U/L CBC W/AUTO [id number] 00:00:00 Test Item Value Reference Range Interpretation [...] code = 1015) 374 K/UL CBC W/AUTO [id number] 00:00:00 Test Item Value Reference Range Interpretation [...] code = 1015) 374 K/UL COMPREHENSIVE METABOLIC [id number] 00:00:00 Test Item Value Reference Range Interpretation Comments GLUCOSE (test code = 2217) 86 MG/DL BUN (test code = 2208) 8 MG/DL CREATININE (test code = 2214) 0.93 MG/DL eGFR AMER. (test code 87 ML/MIN/1.73 = 93522) eGFR NON- AMER. (test 75 ML/MIN/1.73 code = 49380) CALC BUN/CREAT (test code = 9 RATIO [...] (test code = 2219) 19 U/L LIPID [id number] 00:00:00 Test Item Value Reference Range Interpretation Comments CHOLESTEROL (test code = 2210) 181 MG/DL TRIGLYCERIDES (test code = 2232) 291 MG/DL HDL CHOLESTEROL (test code = 2220) 42 MG/DL CALC LDL CHOL (test code = 2237) 81 MG/DL RISK RATIO LDL/HDL (test code = 1.92 RATIO 2238) CBC W/AUTO [id number] 00:00:00 Test Item Value Reference Range Interpretation [...] code = 1015) 374 K/UL CBC W/AUTO [id number] 00:00:00 Test Item Value Reference Range Interpretation [...] code = 1015) 374 K/UL CBC W/AUTO [id number] 00:00:00 Test Item Value Reference Range Interpretation [...] code = 1015) 374 K/UL COMPREHENSIVE METABOLIC [id number] 00:00:00 Test Item Value Reference Range Interpretation Comments GLUCOSE (test code = 2217) 86 MG/DL BUN (test code = 2208) 8 MG/DL CREATININE (test code = 2214) 0.93 MG/DL eGFR AMER. (test code 87 ML/MIN/1.73 = 34212) eGFR NON- AMER. (test 75 ML/MIN/1.73 code = 20499) CALC BUN/CREAT (test code = 9 RATIO [...] code = 2219) 19 U/L COMPREHENSIVE METABOLIC [id number] 00:00:00 Test Item Value Reference Range Interpretation Comments GLUCOSE (test code = 2217) 86 MG/DL BUN (test code = 2208) 8 MG/DL CREATININE (test code = 2214) 0.93 MG/DL eGFR AMER. (test code 87 ML/MIN/1.73 = 97449) eGFR NON- AMER. (test 75 ML/MIN/1.73 code = 09918) CALC BUN/CREAT (test code = 9 RATIO [...] CALC GLOBULIN (test code = 3.4 G/DL 0) CALC A/G RATIO (test code = 1.2 RATIO 4) BILIRUBIN, TOTAL (test code = <0.2 MG/DL 2206) ALKALINE PHOSPHATASE (test 118 U/L code = 2204) AST (test code = 2218) 27 U/L ALT (test code = 2219) 19 U/L LIPID [id number] 00:00:00 Test Item Value Reference Range Interpretation Comments CHOLESTEROL (test code = 2210) 181 MG/DL TRIGLYCERIDES (test code = 2232) 291 MG/DL HDL CHOLESTEROL (test code = 2220) 42 MG/DL CALC LDL CHOL (test code = 2237) 81 MG/DL RISK RATIO LDL/HDL (test code = 1.92 RATIO 2238) LIPID [id number] 00:00:00 Test Item Value Reference Range Interpretation Comments CHOLESTEROL (test code = 2210) 181 MG/DL TRIGLYCERIDES (test code = 2232) 291 MG/DL HDL CHOLESTEROL (test code = 2220) 42 MG/DL CALC LDL CHOL (test code = 2237) 81 MG/DL RISK RATIO LDL/HDL (test code = 1.92 RATIO 2238) CBC W/AUTO [id number] 00:00:00 Test Item Value Reference Range Interpretation [...] code = 1015) 374 K/UL CBC W/AUTO [id number] 00:00:00 Test Item Value Reference Range Interpretation [...] code = 1015) 374 K/UL CBC W/AUTO [id number] 00:00:00 Test Item Value Reference Range Interpretation [...] code = 1015) 374 K/UL COMPREHENSIVE METABOLIC [id number] 00:00:00 Test Item Value Reference Range Interpretation Comments GLUCOSE (test code = 2217) 86 MG/DL BUN (test code = 2208) 8 MG/DL CREATININE (test code = 2214) 0.93 MG/DL eGFR AMER. (test code 87 ML/MIN/1.73 = 49775) eGFR NON- AMER. (test 75 ML/MIN/1.73 code = 24920) CALC BUN/CREAT (test code = 9 RATIO 2235) SODIUM (test code = 2231) 134 MEQ/L POTASSIUM (test code = 2228) 5.7 MEQ/L CHLORIDE (test code = 2215) 102 MEQ/L CARBON DIOXIDE (test code = 14 MEQ/L 2206) CALCIUM (test code = 2209) 9.1 MG/DL PROTEIN, TOTAL (test code = 7.6 G/DL 2228) ALBUMIN (test code = 2201) 4.2 G/DL CALC GLOBULIN (test code = 3.4 G/DL 2240) CALC A/G RATIO (test code = 1.2 RATIO 4) BILIRUBIN, TOTAL (test code = <0.2 MG/DL 2206) ALKALINE PHOSPHATASE (test 118 U/L code = 2204) AST (test code = 2218) 27 U/L ALT (test code = 2219) 19 U/L COMPREHENSIVE METABOLIC [id number] 00:00:00 Test Item Value Reference Range Interpretation Comments GLUCOSE (test code = 2217) 86 MG/DL BUN (test code = 2208) 8 MG/DL CREATININE (test code = 2214) 0.93 MG/DL eGFR AMER. (test code 87 ML/MIN/1.73 = 05260) eGFR NON- AMER. (test 75 ML/MIN/1.73 code = 24839) CALC BUN/CREAT (test code = 9 RATIO [...] CALC GLOBULIN (test code = 3.4 G/DL 224) CALC A/G RATIO (test code = 1.2 RATIO 2234) BILIRUBIN, TOTAL (test code = <0.2 MG/DL 2206) ALKALINE PHOSPHATASE (test 118 U/L code = 2204) AST (test code = 2218) 27 U/L ALT (test code = 2219) 19 U/L LIPID [id number] 00:00:00 Test Item Value Reference Range Interpretation Comments CHOLESTEROL (test code = 2210) 181 MG/DL TRIGLYCERIDES (test code = 2232) 291 MG/DL HDL CHOLESTEROL (test code = 2220) 42 MG/DL CALC LDL CHOL (test code = 2237) 81 MG/DL RISK RATIO LDL/HDL (test code = 1.92 RATIO 2238) LIPID [id number] 00:00:00 Test Item Value Reference Range Interpretation Comments CHOLESTEROL (test code = 2210) 181 MG/DL TRIGLYCERIDES (test code = 2232) 291 MG/DL HDL CHOLESTEROL (test code = 2220) 42 MG/DL CALC LDL CHOL (test code = 2237) 81 MG/DL RISK RATIO LDL/HDL (test code = 1.92 RATIO 2238) HIV AB/AG COMBO RFLX [id number] 00:00:00 Test Item Value Reference Range Interpretation Comments HIV 1/2 4TH GEN, RFLX CONF (test NON-REACTIVE code = 3514) ACUTE HEPATITIS [id number] 00:00:00 Test Item Value Reference Range Interpretation Comments HEPATITIS A IgM (test code = NON-REACTIVE 74708) HEPATITIS B CORE IgM (test code NON-REACTIVE = 3744) HEPATITIS B SURF AG (test code = NON-REACTIVE 5099) HEPATITIS C ANTIBODY (test code NON-REACTIVE = 9983) HCV INDEX (test code = 46425) 0.11 INTERPRETATION HEPATITIS A: (NOTE) (test code = 2552) INTERPRETATION HEPATITIS B: (NOTE) (test code = 03938) INTERPRETATION HEPATITIS C: (NOTE) (test code = 73243) [id number] 00:00:00 Test Item Value Reference Range Interpretation Comments RPR RESULT (test code = NON-REACTIVE 3501) RPR TITER (test code = 3500) NOT INDIC. TITER [id number] 00:00:00 Test Item Value Reference Range Interpretation Comments RPR RESULT (test code = NON-REACTIVE 3501) RPR TITER (test code = 3500) NOT INDIC. TITER GC AND CHLAMYDIA, AMPLIFIED, [id number] 00:00:00 Test Item Value Reference Range Interpretation Comments GONORRHEA, TMA (test code = 96124) NEGATIVE CHLAMYDIA, TMA (test code = 26627) NEGATIVE HIV AB/AG COMBO RFLX [id number] 00:00:00 Test Item Value Reference Range Interpretation Comments HIV 1/2 4TH GEN, RFLX CONF (test NON-REACTIVE code = 3514) HIV AB/AG COMBO RFLX [id number] 00:00:00 Test Item Value Reference Range Interpretation Comments HIV 1/2 4TH GEN, RFLX CONF (test NON-REACTIVE code = 3514) ACUTE HEPATITIS [id number] 00:00:00 Test Item Value Reference Range Interpretation Comments HEPATITIS A IgM (test code = NON-REACTIVE 38990) HEPATITIS B CORE IgM (test code NON-REACTIVE = 4644) HEPATITIS B SURF AG (test code = NON-REACTIVE 2739) HEPATITIS C ANTIBODY (test code NON-REACTIVE = 4675) HCV INDEX (test code = 30102) 0.11 INTERPRETATION HEPATITIS A: (NOTE) (test code = 2552) INTERPRETATION HEPATITIS B: (NOTE) (test code = 18268) INTERPRETATION HEPATITIS C: (NOTE) (test code = 25587) ACUTE HEPATITIS [id number] 00:00:00 Test Item Value Reference Range Interpretation Comments HEPATITIS A IgM (test code = NON-REACTIVE 45560) HEPATITIS B CORE IgM (test code NON-REACTIVE = 4644) HEPATITIS B SURF AG (test code = NON-REACTIVE 2739) HEPATITIS C ANTIBODY (test code NON-REACTIVE = 4675) HCV INDEX (test code = 97260) 0.11 INTERPRETATION HEPATITIS A: (NOTE) (test code = 2552) INTERPRETATION HEPATITIS B: (NOTE) (test code = 26960) INTERPRETATION HEPATITIS C: (NOTE) (test code = 40278) [id number] 00:00:00 Test Item Value Reference Range Interpretation Comments RPR RESULT (test code = NON-REACTIVE 3501) RPR TITER (test code = 3500) NOT INDIC. TITER [id number] 00:00:00 Test Item Value Reference Range Interpretation Comments RPR RESULT (test code = NON-REACTIVE 3501) RPR TITER (test code = 3500) NOT INDIC. TITER [id number] 00:00:00 Test Item Value Reference Range Interpretation Comments RPR RESULT (test code = NON-REACTIVE 3501) RPR TITER (test code = 3500) NOT INDIC. TITER GC AND CHLAMYDIA, AMPLIFIED, [id number] 00:00:00 Test Item Value Reference Range Interpretation Comments GONORRHEA, TMA (test code = 26175) NEGATIVE CHLAMYDIA, TMA (test code = 28958) NEGATIVE GC AND CHLAMYDIA, AMPLIFIED, [id number] 00:00:00 Test Item Value Reference Range Interpretation Comments GONORRHEA, TMA (test code = 25797) NEGATIVE CHLAMYDIA, TMA (test code = 59856) NEGATIVE HIV AB/AG COMBO RFLX [id number] 00:00:00 Test Item Value Reference Range Interpretation Comments HIV 1/2 4TH GEN, RFLX CONF (test NON-REACTIVE code = 3514) HIV AB/AG COMBO RFLX [id number] 00:00:00 Test Item Value Reference Range Interpretation Comments HIV 1/2 4TH GEN, RFLX CONF (test NON-REACTIVE code = 3514) ACUTE HEPATITIS [id number] 00:00:00 Test Item Value Reference Range Interpretation Comments HEPATITIS A IgM (test code = NON-REACTIVE 95785) HEPATITIS B CORE IgM (test code NON-REACTIVE = 4644) HEPATITIS B SURF AG (test code = NON-REACTIVE 2739) HEPATITIS C ANTIBODY (test code NON-REACTIVE = 4675) HCV INDEX (test code = 25211) 0.11 INTERPRETATION HEPATITIS A: (NOTE) (test code = 2552) INTERPRETATION HEPATITIS B: (NOTE) (test code = 68700) INTERPRETATION HEPATITIS C: (NOTE) (test code = 32200) ACUTE HEPATITIS [id number] 00:00:00 Test Item Value Reference Range Interpretation Comments HEPATITIS A IgM (test code = NON-REACTIVE 75619) HEPATITIS B CORE IgM (test code NON-REACTIVE = 4644) HEPATITIS B SURF AG (test code = NON-REACTIVE 2739) HEPATITIS C ANTIBODY (test code NON-REACTIVE = 4675) HCV INDEX (test code = 66438) 0.11 INTERPRETATION HEPATITIS A: (NOTE) (test code = 2552) INTERPRETATION HEPATITIS B: (NOTE) (test code = 63738) INTERPRETATION HEPATITIS C: (NOTE) (test code = 00508) [id number] 00:00:00 Test Item Value Reference Range Interpretation Comments RPR RESULT (test code = NON-REACTIVE 3501) RPR TITER (test code = 3500) NOT INDIC. TITER [id number] 00:00:00 Test Item Value Reference Range Interpretation Comments RPR RESULT (test code = NON-REACTIVE 3501) RPR TITER (test code = 3500) NOT INDIC. TITER [id number] 00:00:00 Test Item Value Reference Range Interpretation Comments RPR RESULT (test code = NON-REACTIVE 3501) RPR TITER (test code = 3500) NOT INDIC. TITER GC AND CHLAMYDIA, AMPLIFIED, [id number] 00:00:00 Test Item Value Reference Range Interpretation Comments GONORRHEA, TMA (test code = 78318) NEGATIVE CHLAMYDIA, TMA (test code = 66367) NEGATIVE GC AND CHLAMYDIA, AMPLIFIED, [id number] 00:00:00 Test Item Value Reference Range Interpretation Comments GONORRHEA, TMA (test code = 17098) NEGATIVE CHLAMYDIA, TMA (test code = 06906) NEGATIVE CBC W/AUTO [id number] 00:00:00 Test Item Value Reference Range Interpretation [...] code = 1015) 374 K/UL CBC W/AUTO [id number] 00:00:00 Test Item Value Reference Range Interpretation [...] code = 1015) 374 K/UL COMPREHENSIVE METABOLIC [id number] 00:00:00 Test Item Value Reference Range Interpretation Comments GLUCOSE (test code = 2217) 96 MG/DL BUN (test code = 2208) 9 MG/DL CREATININE (test code = 2214) 0.73 MG/DL eGFR AMER. (test code 117 ML/MIN/1.73 = 29726) eGFR NON- AMER. (test 101 ML/MIN/1.73 code = 85463) CALC BUN/CREAT (test code = 12 RATIO [...] (test code = 2219) 16 U/L LIPID [id number] 00:00:00 Test Item Value Reference Range Interpretation Comments CHOLESTEROL (test code = 2210) 188 MG/DL TRIGLYCERIDES (test code = 2232) 162 MG/DL HDL CHOLESTEROL (test code = 2220) 48 MG/DL CALC LDL CHOL (test code = 2237) 108 MG/DL RISK RATIO LDL/HDL (test code = 2.24 RATIO 2238) [id number] 00:00:00 Test Item Value Reference Range Interpretation Comments TSH, THIRD GENERATION (test code 1.150 UIU/ML = 2821) [id number] 00:00:00 Test Item Value Reference Range Interpretation Comments TSH, THIRD GENERATION (test code 1.150 UIU/ML = 2821) HEMOGLOBIN [id number] 00:00:00 Test Item Value Reference Range Interpretation Comments HEMOGLOBIN A1c (test code = 09665) 5.4 % HEMOGLOBIN [id number] 00:00:00 Test Item Value Reference Range Interpretation Comments HEMOGLOBIN A1c (test code = 05538) 5.4 % CBC W/AUTO [id number] 00:00:00 Test Item Value Reference Range Interpretation [...] code = 1015) 374 K/UL CBC W/AUTO [id number] 00:00:00 Test Item Value Reference Range Interpretation [...] code = 1015) 374 K/UL CBC W/AUTO [id number] 00:00:00 Test Item Value Reference Range Interpretation [...] code = 1015) 374 K/UL COMPREHENSIVE METABOLIC [id number] 00:00:00 Test Item Value Reference Range Interpretation Comments GLUCOSE (test code = 2217) 96 MG/DL BUN (test code = 2208) 9 MG/DL CREATININE (test code = 2214) 0.73 MG/DL eGFR AMER. (test code 117 ML/MIN/1.73 = 26684) eGFR NON- AMER. (test 101 ML/MIN/1.73 code = 65365) CALC BUN/CREAT (test code = 12 RATIO [...] code = 2219) 16 U/L COMPREHENSIVE METABOLIC [id number] 00:00:00 Test Item Value Reference Range Interpretation Comments GLUCOSE (test code = 2217) 96 MG/DL BUN (test code = 2208) 9 MG/DL CREATININE (test code = 2214) 0.73 MG/DL eGFR AMER. (test code 117 ML/MIN/1.73 = 35893) eGFR NON- AMER. (test 101 ML/MIN/1.73 code = 34104) CALC BUN/CREAT (test code = 12 RATIO [...] (test code = 2219) 16 U/L LIPID [id number] 00:00:00 Test Item Value Reference Range Interpretation Comments CHOLESTEROL (test code = 2210) 188 MG/DL TRIGLYCERIDES (test code = 2232) 162 MG/DL HDL CHOLESTEROL (test code = 2220) 48 MG/DL CALC LDL CHOL (test code = 2237) 108 MG/DL RISK RATIO LDL/HDL (test code = 2.24 RATIO 2238) LIPID [id number] 00:00:00 Test Item Value Reference Range Interpretation Comments CHOLESTEROL (test code = 2210) 188 MG/DL TRIGLYCERIDES (test code = 2232) 162 MG/DL HDL CHOLESTEROL (test code = 2220) 48 MG/DL CALC LDL CHOL (test code = 2237) 108 MG/DL RISK RATIO LDL/HDL (test code = 2.24 RATIO 2238) [id number] 00:00:00 Test Item Value Reference Range Interpretation Comments TSH, THIRD GENERATION (test code 1.150 UIU/ML = 2821) [id number] 00:00:00 Test Item Value Reference Range Interpretation Comments TSH, THIRD GENERATION (test code 1.150 UIU/ML = 2821) [id number] 00:00:00 Test Item Value Reference Range Interpretation Comments TSH, THIRD GENERATION (test code 1.150 UIU/ML = 2821) HEMOGLOBIN [id number] 00:00:00 Test Item Value Reference Range Interpretation Comments HEMOGLOBIN A1c (test code = 64682) 5.4 % HEMOGLOBIN [id number] 00:00:00 Test Item Value Reference Range Interpretation Comments HEMOGLOBIN A1c (test code = 69727) 5.4 % HEMOGLOBIN [id number] 00:00:00 Test Item Value Reference Range Interpretation Comments HEMOGLOBIN A1c (test code = 96873) 5.4 % CBC W/AUTO [id number] 00:00:00 Test Item Value Reference Range Interpretation [...] code = 1015) 374 K/UL CBC W/AUTO [id number] 00:00:00 Test Item Value Reference Range Interpretation [...] code = 1015) 374 K/UL CBC W/AUTO [id number] 00:00:00 Test Item Value Reference Range Interpretation [...] code = 1015) 374 K/UL COMPREHENSIVE METABOLIC [id number] 00:00:00 Test Item Value Reference Range Interpretation Comments GLUCOSE (test code = 2217) 96 MG/DL BUN (test code = 2208) 9 MG/DL CREATININE (test code = 2214) 0.73 MG/DL eGFR AMER. (test code 117 ML/MIN/1.73 = 04013) eGFR NON- AMER. (test 101 ML/MIN/1.73 code = 56859) CALC BUN/CREAT (test code = 12 RATIO [...] code = 2219) 16 U/L COMPREHENSIVE METABOLIC [id number] 00:00:00 Test Item Value Reference Range Interpretation Comments GLUCOSE (test code = 2217) 96 MG/DL BUN (test code = 2208) 9 MG/DL CREATININE (test code = 2214) 0.73 MG/DL eGFR AMER. (test code 117 ML/MIN/1.73 = 27635) eGFR NON- AMER. (test 101 ML/MIN/1.73 code = 37058) CALC BUN/CREAT (test code = 12 RATIO [...] (test code = 2219) 16 U/L LIPID [id number] 00:00:00 Test Item Value Reference Range Interpretation Comments CHOLESTEROL (test code = 2210) 188 MG/DL TRIGLYCERIDES (test code = 2232) 162 MG/DL HDL CHOLESTEROL (test code = 2220) 48 MG/DL CALC LDL CHOL (test code = 2237) 108 MG/DL RISK RATIO LDL/HDL (test code = 2.24 RATIO 2238) LIPID [id number] 00:00:00 Test Item Value Reference Range Interpretation Comments CHOLESTEROL (test code = 2210) 188 MG/DL TRIGLYCERIDES (test code = 2232) 162 MG/DL HDL CHOLESTEROL (test code = 2220) 48 MG/DL CALC LDL CHOL (test code = 2237) 108 MG/DL RISK RATIO LDL/HDL (test code = 2.24 RATIO 2238) [id number] 00:00:00 Test Item Value Reference Range Interpretation Comments TSH, THIRD GENERATION (test code 1.150 UIU/ML = 2821) [id number] 00:00:00 Test Item Value Reference Range Interpretation Comments TSH, THIRD GENERATION (test code 1.150 UIU/ML = 2821) [id number] 00:00:00 Test Item Value Reference Range Interpretation Comments TSH, THIRD GENERATION (test code 1.150 UIU/ML = 2821) HEMOGLOBIN [id number] 00:00:00 Test Item Value Reference Range Interpretation Comments HEMOGLOBIN A1c (test code = 39177) 5.4 % HEMOGLOBIN [id number] 00:00:00 Test Item Value Reference Range Interpretation Comments HEMOGLOBIN A1c (test code = 06108) 5.4 % HEMOGLOBIN [id number] 00:00:00 Test Item Value Reference Range Interpretation Comments HEMOGLOBIN A1c (test code = 41212) 5.4 %"
[2023-05-31] MEDS ORDERED: PROMETHAZINE 25 MG TABLET ONE (06:50)
[2023-05-31] MEDS ORDERED: DIPHENHYDRAMINE 50 MG/ML VIAL ONE (06:50)
[2023-05-31 06:55] LABS: Absolute Lymphocytes (CBC) 1.5 K/uL (0.7-4.9); Hematocrit 37.1 % (36.0-45.0); Lymphocytes % 20.9 % (15.3-44.8); MCV 78.2 fL (80-100); MPV 7.5 fL (7.6-11.3); Platelets 367 thou/uL (152-406); RBC Red Blood Cell Count 4.74 M/uL (3.86-4.86)
[2023-05-31 07:03] LABS: Specific Gravity 1.016 (1.005-1.030); Urine Bacteria <20 /HPF (<20); Urine Bilirubin NEGATIVE (Negative); Urine Blood 1+ (Negative); Urine Clarity Turbid (Clear); Urine Color Light-Yellow (Yellow); Urine Glucose NEGATIVE (Negative); Urine Mucus Slight /HPF (None Seen); Urine Protein NEGATIVE (Negative); Urine RBC <5 /HPF (None Seen); Urine Urobilinogen Normal (Normal)
[2023-05-31 07:11] LABS: Albumin 3.4 g/dL (3.4-5.0); Bilirubin Total 0.3 mg/dL (0.2-1.0); Potassium 3.3 mEq/L (3.5-5.1); Protein, Total 7.9 g/dL (6.4-8.2)
--- NOTE | 2023-05-31 07:40 | RAD REPORT ---
EXAM DESCRIPTION: CT - Abdomen Pelvis Wo Contrast - 05/31/2023 7:04 am CLINICAL HISTORY: left flank pain COMPARISON: Abdomen Pelvis Wo Contrast dated 02/11/2023; Stone Protocol dated 04/05/2022; Stone Prot ocol dated 09/22/2021; CT ABDOMEN PELVIS WO CONTRAST dated 03/11/2014 TECHNIQUE: Thin cut axial CT imaging of the abdomen and pelvis was performed without IV contrast. Mu ltiplanar reformats were generated and reviewed. All CT scans are performed using dose optimization technique as appropriate and may include automated exposure control or mA/KV adjustment according to patient size. FINDINGS: No suspicious findings in the lung bases. The liver, spleen, adrenal glands, and pancreas show no suspicious findings. Gallbladder was surgical ly removed. Status post right nephrectomy. No suspicious parenchymal findings within limits of noncontrast techni que. No hydroureteronephrosis. Left renal calculi largest at the lower pole measuring [address] able or slightly enlarged since the prior exam. Other calculi do not exceed 3 millimeter in size. No ureteral calculi. No dilated bowel loops or bowel wall thickening. Mild colonic diverticulosis. Appendix unremarkable. No free air, free fluid or inflammatory stranding. No hernia, mass or bulky lymphadenopathy. The urin traci bladder is decompressed limiting evaluation without suspicious masses. Small bilateral adnexal cy sts, likely physiologic. Crescentic adnexal structure along the right aspect of the fundus may repres ent a small paraovarian cyst verge degenerated fibroid. No suspicious bony findings. IMPRESSION: Left renal nonobstructing calculi as above. No other acute intra-abdominal process.
[2023-05-31] MEDS ORDERED: POTASSIUM CL SA 10 MEQ TAB PO ONE (08:23)
--- NOTE | 2023-05-31 08:25 | EDPHYS ---
Physician Documentation [facility] Name: Yissel Carmona Age: 47 yrs Sex: Female : 1975 Arrival Date: 05/31/2023 Time: 06:09 Bed 17 Private MD: ED Physician Domingo Hyde HPI: 05/31 06:19 This 47 yrs old Female presents to ER via Unassigned with complaints of sp4 Nausea/Vomiting, Headache, Back Pain. 06:19 PMH - Allergies: Cipro; Reglan; Rocephin; Stadol; tequin Toradol; tramadol; Zofran sp4 PMHx: Migraines; one kidney; PSHx: Cholecystectomy; kidney removal;. 06:57 Patient presents with acute onset left flank pain starting 1 week ago associated with sp4 headache. Patient reports history of kidney stone. Historical: - Allergies: 06:32 Cipro; pf1 06:32 Reglan; pf1 06:32 Rocephin; pf1 06:32 Stadol; pf1 06:32 tequin; pf1 06:32 Toradol; pf1 06:32 tramadol; pf1 06:32 Zofran; pf1 - PMHx: 06:32 one kidney; Migraines; pf1 - PSHx: 06:32 Cholecystectomy; pf1 06:34 right kidney removed; pf1 - Immunization history:: Adult Immunizations up to date, Client reports receiving the 2nd dose of the Covid vaccine, Last tetanus immunization: > 10 years ago Flu vaccine is not up to date. - Social history:: Smoking status: Patient denies any tobacco usage or history of. Patient/guardian denies using alcohol, street drugs. - Family history:: not pertinent. ROS: 06:57 Constitutional: Negative for fever, chills, and weight loss, positive for left back sp4 pain positive left flank pain positive headache 06:57 All other systems are negative, Exam: 06:57 Constitutional: This is a well developed, well nourished patient who is awake, alert, sp4 and in no acute distress. Head/Face: Normocephalic, atraumatic. Eyes: Pupils equal round and reactive to light, extra-ocular motions intact. Lids and lashes normal. Conjunctiva and sclera are not injected. Cornea within normal limits. Periorbital areas with no swelling, redness, or edema. ENT: Nares patent. No nasal discharge, no septal abnormalities noted. Tympanic membranes are normal and external auditory canals are clear. Oropharynx with no redness, swelling, or masses, exudates, or evidence of obstruction, uvula midline. Mucous membranes moist. Neck: Trachea midline, no thyromegaly or masses palpated, and no cervical lymphadenopathy. Supple, full range of motion without nuchal rigidity, or vertebral point tenderness. Chest/axilla: Normal chest wall appearance and motion. Nontender with no deformity. No lesions are appreciated. Cardiovascular: Regular rate and rhythm with a normal S1 and S2. No gallops, murmurs, or rubs. Normal PMI, no JVD. No pulse deficits. Respiratory: Lungs have equal breath sounds bilaterally, clear to auscultation and percussion. No rales, rhonchi or wheezes noted. No increased work of breathing, no retractions or nasal flaring. Abdomen/GI: Soft, non-tender, with normal bowel sounds. No distension or tympany. No guarding or rebound. No evidence of tenderness throughout. Back: No spinal tenderness. No costovertebral tenderness. Skin: Warm, dry with normal turgor. Normal color with no rashes, no lesions, and no evidence of cellulitis. MS/ Extremity: Pulses equal, no cyanosis. Neurovascular intact. Full, normal range of motion. Neuro: Awake and alert, GCS 15, oriented to person, place, time, and situation. Cranial nerves II-XII grossly intact. Motor strength 5/5 in all extremities. Sensory grossly intact. Psych: Awake, alert, with orientation to person, place and time. Behavior, mood, and affect are within normal limits Vital Signs: 06:19 BP 120 / 81; Pulse 100; Resp 18; Temp 98.1; Pulse Ox 98% ; Weight 88.45 kg; Height 5 pf1 ft. 2 in. ; Pain 10/10; 08:15 BP 112 / 70; Pulse 91; Resp 16; Pulse Ox 100% ; db 06:19 Body Mass Index 35.67 (88.45 kg, 157.48 cm) pf1 06:19 Pain Scale: Adult pf1 Michelle Coma Score: 06:45 Eye Response: spontaneous(4). Motor Response: obeys commands(6). Verbal Response: km8 oriented(5). Total: 15. MDM: 06:18 Patient medically screened. sp4 07:09 Differential diagnosis: Nonspecific abd pain, diverticulitis, viral gastroenteritis, sp4 gastroenteritis. Data reviewed: vital signs, nurses notes, old medical records, lab test result(s), CBC, electrolytes, hepatic panel, urinalysis. Consideration of Admission/Observation Escalation of care including admission/observation considered. Transition of care: After a detail discussion of the patient's case, care is transferred to Domingo Hyde MD. ED course: Patient is waiting on CT abdomen pelvis renal stone protocol. 07:26 Transition of care: Care assumed from Olu Mendez MD. ED course: Patient signed ec2 out to me by previous physician, improved patient arrives today due to concern for left-sided flank pain with associated headache. Plan is to follow-up lab work and CT imaging. . 07:27 ED course: Patient is flu negative. CBC is reassuring. Metabolic profile with slight ec2 hypokalemia at 3.3 and some diminished renal function. Urine is questionably infectious appearing, will defer to culture. Pending CT abdomen pelvis. . 07:41 ED course: Left-sided nonobstructing renal calculi noted. . ec2 08:23 ED course: On reassessment patient is well-appearing in no acute distress. Will ec2 discharge home, instructed on potassium supplementation. Return precautions given. 05/31 06:18 Order name: CBC with Diff; Complete Time: 07:09 sp4 05/31 06:18 Order name: CMP; Complete Time: 07:15 sp4 05/31 06:18 Order name: Lipase; Complete Time: 07:15 sp4 05/31 06:18 Order name: Urinalysis w/ reflexes; Complete Time: 07:09 sp4 05/31 06:18 Order name: COVID-19 SARS RT PCR; Complete Time: 07:38 sp4 05/31 06:18 Order name: Influenza Screen (a \T\ B); Complete Time: 07:26 sp4 05/31 06:26 Order name: CT Abd/Pelvis - Without Contrast; Complete Time: 07:40 sp4 05/31 06:18 Order name: IV Saline Lock; Complete Time: 06:34 sp4 05/31 06:18 Order name: Labs collected and sent; Complete Time: 06:50 sp4 Administered Medications: 06:25 CANCELLED (Patient Refused): [id number] mg IVP once; over 1 to 2 minutes sp4 06:41 CANCELLED (allergy): ondansetron 8 mg IVP once; over 2 minutes pf1 06:46 Drug: diphenhydrAMINE IVP 25 mg IVP once Route: IVP; Site: right antecubital; km8 08:43 Follow up: Response: No adverse reaction db 06:47 Drug: morphine IVP or IV 8 mg IVP once over 4 mins Route: IVP; Infused Over: 4 mins; km8 Site: right antecubital; 08:44 Follow up: Response: No adverse reaction db 06:47 Drug: NS 0.9% IV 1000 ml IV at 1 bolus Per protocol; 1000 mL bolus Route: IV; Rate: 1 km8 bolus; Site: right antecubital; 08:43 Follow up: Response: No adverse reaction; IV Status: Completed infusion; IV Intake: db 1000ml 06:47 CANCELLED (not available): [id number] mg IM once km8 06:48 Drug: Promethazine PO 25 mg PO once Route: PO; km8 08:43 Follow up: Response: No adverse reaction db 08:20 Drug: Potassium Chloride PO 40 mEq PO once Route: PO; db 08:43 Follow up: Response: No adverse reaction db Disposition Summary: 05/31/23 08:24 Discharge Ordered Notes: Location: Home ec2 Condition: Stable ec2 Diagnosis - Headache ec2 - Kidney Stone ec2 Discharge Instructions: - Discharge Summary Sheet ec2 - General Headache Without Cause, [id number] ec2 Forms: - Work release form ec2 - Medication Reconciliation Form ec2 - Thank You Letter ec2 - Antibiotic Education ec2 - Prescription Opioid Use ec2 - Patient Portal Instructions ec2 - Leadership Thank You Letter ec2 Signatures: Dispatcher [employer] Bernarda Cox RN RN db Denisse Murrell RN RN pf1 Olu Mendez MD MD sp4 Domingo Hyde MD MD ec2 Fely Preston RN RN km8 Corrections: (The following items were deleted from the chart) 06:25 06:24 metoCLOPramide IVP 10 mg IVP once; over 1 to 2 minutes ordered. sp4 sp4 06:35 06:32 PSHx: kidney removal; pf1 pf1 06:35 06:32 PSHx: right kidney removed (kidney removal); pf1 pf1 06:41 06:18 Ondansetron IVP 8 mg IVP once; over 2 minutes ordered. sp4 pf1 06:41 06:41 Ondansetron IVP 8 mg IVP once; over 2 minutes ordered. pf1 pf1 06:47 06:25 Promethazine IM 25 mg IM once ordered. sp4 km8 06:47 06:47 Promethazine IM 25 mg IM once ordered. km8 km8
--- NOTE | 2023-05-31 08:25 | ER ---
Nurse's Notes [facility] Name: Yissel Carmona Age: 47 yrs Sex: Female : 1975 Arrival Date: 05/31/2023 Time: 06:09 Bed 17 Private MD: Diagnosis: Headache;Kidney Stone Presentation: 05/31 06:19 Chief complaint: Patient states: headache pain of 10,onset 0100 with vomiting,onset pf1 yesterday with left flank pain,onset Monday. Patient stated was diagnosed with a kidney stone 4-5 months ago, but has not followed up. 06:19 Coronavirus screen: Vaccine status: Patient reports receiving the 2nd dose of the covid pf1 vaccine. Client denies travel out of the [place] in the last 14 days. Client presents with at least one sign or symptom that may indicate coronavirus-19. Ebola Screen: Patient negative for fever greater than or equal to 101.5 degrees Fahrenheit, and additional compatible Ebola Virus Disease symptoms. Initial Sepsis Screen: Does the patient meet any 2 criteria? No. Patient's initial sepsis screen is negative. Does the patient have a suspected source of infection? No. Patient's initial sepsis screen is negative. Risk Assessment: Do you want to hurt yourself or someone else? Patient reports no desire to harm self or others. 06:19 Method Of Arrival: Ambulatory pf1 06:19 Acuity: NEVAEH 3 pf1 06:48 Onset of symptoms was May 27, 2023. km8 Historical: - Allergies: 06:32 Cipro; pf1 06:32 Reglan; pf1 06:32 Rocephin; pf1 06:32 Stadol; pf1 06:32 tequin; pf1 06:32 Toradol; pf1 06:32 tramadol; pf1 06:32 Zofran; pf1 - PMHx: 06:32 one kidney; Migraines; pf1 - PSHx: 06:32 Cholecystectomy; pf1 06:34 right kidney removed; pf1 - Immunization history:: Adult Immunizations up to date, Client reports receiving the 2nd dose of the Covid vaccine, Last tetanus immunization: > 10 years ago Flu vaccine is not up to date. - Social history:: Smoking status: Patient denies any tobacco usage or history of. Patient/guardian denies using alcohol, street drugs. - Family history:: not pertinent. Screenin:39 [facility] ED Fall Risk Assessment (Adult) History of falling in the last 3 months, pf1 including since admission No falls in past 3 months (0 pts) Confusion or Disorientation No (0 pts) Intoxicated or Sedated No (0 pts) Impaired Gait No (0 pts) Mobility Assist Device Used No (0 pt) Altered Elimination No (0 pt) Score/Fall Risk Level 0 - 2 = Low Risk Oriented to surroundings, Maintained a safe environment, Educated pt \T\ family on fall prevention, incl call for assistance when getting out of bed, Assessed \T\ reinforced patient's understanding of fall precautions, Provided non-skid footwear, Hourly rounding (assess needs \T\ fall precautionary measures) done, Used ambulatory aids as needed (educated on \T\ assisted with), Used gait belt as appropriate. Abuse screen: Denies threats or abuse. Nutritional screening: No deficits noted. Tuberculosis screening: No symptoms or risk factors identified. Assessment: 06:35 General: Appears in no apparent distress. uncomfortable, well groomed, well developed, pf1 Behavior is calm, cooperative, appropriate for age, quiet. Pain: Complains of pain in head and left flank pain Pain currently is 10 out of 10 on a pain scale. Neuro: Level of Consciousness is awake, alert, obeys commands, Oriented to person, place, time, situation, Reports headache. Cardiovascular: No deficits noted. Capillary refill < 3 seconds Patient's skin is warm and dry. Respiratory: No deficits noted. Airway is patent Respiratory effort is even, unlabored, Respiratory pattern is regular, symmetrical. GI: Abdomen is round non-distended, Reports nausea, vomiting. : No deficits noted. No signs and/or symptoms were reported regarding the genitourinary system. EENT: No deficits noted. No signs and/or symptoms were reported regarding the EENT system. Derm: No deficits noted. No signs and/or symptoms reported regarding the dermatologic system. Musculoskeletal: Reports pain in left flank pain. 06:45 Reassessment: Patient appears in no apparent distress at this time. No changes from km8 previously documented assessment. Patient and/or family updated on plan of care and expected duration. Pain level reassessed. Patient is alert, oriented x 3, equal unlabored respirations, skin warm/dry/pink. 07:15 Reassessment: Patient appears in no apparent distress at this time. Patient and/or db family updated on plan of care and expected duration. Pain level reassessed. Patient is alert, oriented x 3, equal unlabored respirations, skin warm/dry/pink. Patient denies pain at this time. Patient states feeling better. General: Appears in no apparent distress. comfortable, Behavior is calm, cooperative. Neuro: Level of Consciousness is awake, alert, obeys commands, Oriented to person, place, time, situation. Respiratory: Airway is patent Respiratory effort is even, unlabored, Respiratory pattern is regular, symmetrical. 08:30 Reassessment: Patient appears in no apparent distress at this time. Patient and/or db family updated on plan of care and expected duration. Pain level reassessed. Patient is alert, oriented x 3, equal unlabored respirations, skin warm/dry/pink. Patient states feeling better. Patient states symptoms have improved. Vital Signs: 06:19 BP 120 / 81; Pulse 100; Resp 18; Temp 98.1; Pulse Ox 98% ; Weight 88.45 kg; Height 5 pf1 ft. 2 in. ; Pain 10/10; 08:15 BP 112 / 70; Pulse 91; Resp 16; Pulse Ox 100% ; db 06:19 Body Mass Index 35.67 (88.45 kg, 157.48 cm) pf1 06:19 Pain Scale: Adult pf1 [place] Coma Score: 06:45 Eye Response: spontaneous(4). Motor Response: obeys commands(6). Verbal Response: km8 oriented(5). Total: 15. ED Course: 06:13 Patient arrived in ED. gm2 06:17 Olu Mendez MD is Attending Physician. sp4 06:28 Fely Preston, TORRES is Primary Nurse. km8 06:32 Radiology exam delayed due to test not completed at this time. eh4 06:32 Triage completed. pf1 06:35 No provider procedures requiring assistance completed. Inserted saline lock: 20 gauge pf1 in right antecubital area, using aseptic technique. Blood collected. 06:39 Patient has correct armband on for positive identification. Bed in low position. Call pf1 light in reach. 06:45 Client placed on continuous cardiac and pulse oximetry monitoring. NIBP monitoring km8 applied. Door closed. Noise minimized. Lights dimmed. Warm blanket given. 06:45 Arm band placed on right wrist. km8 06:45 Patient maintains SpO2 saturation greater than 95% on room air. km8 06:59 CT Abd/Pelvis - Without Contrast In Process Unspecified. EDMS 07:20 Attending Physician role handed off by Olu Mendez MD ec2 07:20 Domingo Hyde MD is Attending Physician. ec2 08:45 Provided Education on: DISCHARGE. db 08:45 IV discontinued, intact, bleeding controlled, No redness/swelling at site. db Administered Medications: 06:25 CANCELLED (Patient Refused): [id number] mg IVP once; over 1 to 2 minutes sp4 06:41 CANCELLED (allergy): ondansetron 8 mg IVP once; over 2 minutes pf1 06:46 Drug: diphenhydrAMINE IVP 25 mg IVP once Route: IVP; Site: right antecubital; km8 08:43 Follow up: Response: No adverse reaction db 06:47 Drug: morphine IVP or IV 8 mg IVP once over 4 mins Route: IVP; Infused Over: 4 mins; km8 Site: right antecubital; 08:44 Follow up: Response: No adverse reaction db 06:47 Drug: NS 0.9% IV 1000 ml IV at 1 bolus Per protocol; 1000 mL bolus Route: IV; Rate: 1 km8 bolus; Site: right antecubital; 08:43 Follow up: Response: No adverse reaction; IV Status: Completed infusion; IV Intake: db 1000ml 06:47 CANCELLED (not available): [id number] mg IM once km8 06:48 Drug: Promethazine PO 25 mg PO once Route: PO; km8 08:43 Follow up: Response: No adverse reaction db 08:20 Drug: Potassium Chloride PO 40 mEq PO once Route: PO; db 08:43 Follow up: Response: No adverse reaction db Medication: 08:45 VIS not applicable for this client. db Intake: 08:43 IV: 1000ml; Total: 1000ml. db Outcome: 08:24 Discharge ordered by . ec2 08:45 Discharged to home ambulatory, db 08:45 Condition: stable 08:45 Discharge instructions given to patient, Instructed on discharge instructions, follow up and referral plans. 08:46 Patient left the ED. db Signatures: Dispatcher [employer] EDNikita Thompsonlacey 4 Bernarda Ruiz RN RN db Denisse Murrell RN RN pf1 Olu Mendez MD MD sp4 Domingo Hyde MD MD 2 Anyi Landa 2 Fely Preston RN RN km8 Corrections: (The following items were deleted from the chart) 06:35 06:32 PSHx: kidney removal; pf1 pf1 06:35 06:32 PSHx: right kidney removed (kidney removal); pf1 pf1
[2023-05-31 09:10] VITALS: TEMP 98.1
[2023-05-31 09:11] VITALS: BP 112/70; O2SAT 100
== END 2023-05-31 08:46 | disposition home or self-care (01) ==
LOC: ER 06:09
DX: R51.9 Headache, unspecified (principal); N20.0 Calculus of kidney
CPT/HCPCS: 36415; 74176; 80053; 81001; 83690; 85025; 87635; 87804; 96361; 96374; 96375; 99285; J1200; Q0169

== ENCOUNTER → 2023-07-07 | Emergency (ER) | payer OTHER, SELFPAY ==
[~2023-07-07] MED LIST: FENTANYL CITR 100 MCG/2 ML ONE; MORPHINE 4 MG/ML SYR ONE; NA CHLORIDE 0.9% 1,000 ML ONE; PROMETHAZINE INJ 25 MG/ML AMP ONE; TAMSULOSIN 0.4 MG SR CAP ONE
--- OUTSIDE RECORDS SUMMARY | 2023-07-07 15:01 | XMS REPORT | Continuity of Care Document ---
Author Name Unknown Address [address] [facility] [address] [place] [address] [facility]connect Address [address] [facility] [address] [place] [address] Care Team Providers Care National Accounts Sales Name Role Phone Pcp, Patient Does Not Have A Primary Care Physic jason Doctor Unassigned, [place] Attending Clinician U SUPRIYA Ross Attending Clinician Unavailab Supriya Daley DO Attending Clinician [phone] DEBBIE BOYCE Attending Clinician UnavailDebbie Beth MD Attending Clinician [phone] MARCIO AUGUSTINE Attending Clinician Unavailable Marcio Augustine DO Attending Clinician [phone] Gagandeep Izaguirre Attending Clinician [phone] Gagandeep RUTHERFORD Attending Clinician Unavailable Rafael Syed Attending Clinician [phone] DEBBIE BOYCE Admitting Clinician MARCIO Moya Admitting Clinician Unavailable Payers Payer Name Policy Type Policy Number Effective Date Expirati on Date Source [facility] MEDICAID [id number] 2018 00:00:00 Problems Condition Name Condition Details Condition Category Status Onset Date Resolution Date Last Treatment Date Treating Clinician Comments Source Acute cystitis without hematuria Acute cystitis without hematuria Disease Active 2021-07 00:00: 00 [facility] Strain of lumbar region, initial encounter Strain of lumbar region, initial encounter Disease Active 2021-07 2 00:00: 00 [facility] Dysuria Dysuria Disease Active 2021-07 2 00:00: 00 [facility] Urinary frequency Urinary frequency Disease Active 2021-07 2 00:00: 00 [facility] Kidney stone Kidney stone Disease Active 2021-07 00:00: 00 [facility] Acute intractabl e tension-ty pe headache Acute intractabl e tension-ty pe headache Disease Active 2021-07 00:00: 00 [facility] No known active problems No known active problems Disease [facility] Allergies, Adverse Reactions, Alerts Allergy Name Allergy Type Status Severity Reaction(s) Onset Date Inactive Date Treating Clinician Comments Source METOCLOP RAMIDE DRUG INGREDI Active Hives 2021-07 0-16 00:00: 00 [facility] GATIFLOX ACIN DRUG INGREDI Active Unknown-Cmnt 2021-07 0-16 00:00: 00 [facility] CEFTRIAX ONE DRUG INGREDI Active Rash 2021-07 0-16 00:00: 00 [facility] Metoclop ramide Propensi ty to adverse reaction s Active Hives 2021-07 0-16 00:00: 00 [facility] Ceftriax one Propensi ty to adverse reaction s Active Rash 2021-07 0-16 00:00: 00 [facility] Gatiflox acin Propensi ty to adverse reaction s Active Unknown - See comments 2021-07 0-16 00:00: 00 [facility] Tramadol Propensi ty to adverse reaction s Active Rash 2020-0 7-19 00:00: 00 [facility] Ondanset yrn (Pf) In Dextrose Propensi ty to adverse reaction s Active Rash 2020-0 7-19 00:00: 00 [facility] Ciproflo xacin Propensi ty to adverse reaction s Active Hives 2020-0 7-19 00:00: 00 [facility] Butorpha nol Tartrate Propensi ty to adverse reaction s Active Hives 2020-0 7-19 00:00: 00 [facility] Ketorola c Trometha mine Propensi ty to adverse reaction s Active Rash 2019-0 7- 00:00: 00 [facility] CIPROFLO XACIN DRUG INGREDI Active Hives 0 7- 00:00: 00 [facility] BUTORPHA NOL TARTRATE DRUG INGREDI Active Hives 0 - 00:00: 00 [facility] KETOROLA C TROMETHA MINE DRUG INGREDI Active Rash 02-01 00:00: 00 [facility] TRAMADOL DRUG INGREDI Active Rash 0 - 00:00: 00 [facility] ONDANSET YRN (PF) IN DEXTROSE DRUG Active Rash 02-01 00:00: 00 [facility] Social History Social Habit Start Date Stop Date Quantity Comments Source Gender identity [facility] Sexual orientation U [facility] Exposure to SARS-CoV-2 (event) 2022-08-21 00:00:00 2022-08-31 10:48:00 Not sure [facility] Sex Assigned At 1975 00:00:00 1975 00:00:00 [facility] Smoking Status Start Date Stop Date Source Tobacco smoking consumption unknown [facility] Medications Ordered Medication Name Filled Medication Name Start Date Stop Date Current Medication? Ordering Clinician Indication Dosage Frequency Signature (SIG) Comments Components Source morpHINE (4 mg/mL) injection 4 mg 2021-07 20:45: 00 07-15 21:06 :00 No 4mg 4 mg, Slow IV Push, ONCE, 1 dose, On Mon07/15/22 at 1445, STAT [facility] iopamidol (ISOVUE 370-500 mL) injection 84 mL 2021-07 20:45: 00 07-15 19:46 :00 No [id number] 84mL 84 mL, Intravenou s, ONCE, 1 dose, On Mon07/15/22 at 1445, Routine [facility] butalbital- acetaminoph en-caff (ESGIC) 50-325-40 mg tablet 1 tablet 2021-07 19:15: 00 07-15 19:30 :00 No 1{tbl} 1 tablet, Oral, ONCE NOW, 1 dose, On Mon07/15/22 at 1315, Routine [facility] diphenhydrA MINE (BENADRYL) injection 25 mg 2021-07 18:30: 00 07-15 19:31 :00 No 25mg 25 mg, Slow IV Push, ONCE, 1 dose, On Mon07/15/22 at 1230, STAT [facility] proMETHazin e (PHENERGAN) 12.5 mg in NaCl 0.9% (NS) 50 mL IV piggyback 2021-07 18:30: 00 07-15 19:34 :00 No 12.5mg 12.5 mg, IV Piggyback, ONCE, 1 dose, On Mon07/15/22 at 1230, LISE [facility] NaCl 0.9% (NS) bolus infusion 1,000 mL 2021-07 18:30: 00 07-15 22:03 :00 No 1000mL at 999 mL/hr, 1,000 mL, IV Infusion, ONCE, 1 dose, On Mon07/15/22 at 1230, STAT [facility] proMETHazin e 25 mg tablet 2021-07 00:00: 00 Yes [id number] 25mg Take 1 tablet by mouth every 6 (six) hours as needed for Nausea and Vomiting (N/V) for up to 10 doses. [facility] proMETHazin e 25 mg tablet 2021-07 00:00: 00 Yes [id number] 25mg Take 1 tablet by mouth every 6 (six) hours as needed for Nausea and Vomiting (N/V) for up to 10 doses. [facility] proMETHazin e 25 mg tablet 2021-07 00:00: 00 Yes [id number] 25mg Take 1 tablet by mouth every 6 (six) hours as needed for Nausea and Vomiting (N/V) for up to 10 doses. [facility] Nitrofurant oin&Nit. Macrocryst (MACROBID) 100 mg capsule 2021-07 230 00:00: 00 07-23 05:59 :00 No [id number] 100mg Take 1 capsule by mouth in the morning and 1 capsule in the evening. Do all this for 7 days. [facility] cyclobenzap rine 5 mg tablet 2021-07 230 00:00: 00 07-21 05:59 :00 No [id number] 10mg Take 2 tablets by mouth 3 (three) times daily as needed for Muscle Spasms for up to 5 days. [facility] oxybutynin chloride (DITROPAN) tablet 5 mg 2021-07 01:00: 00 Yes 5mg 5 mg, Oral, BID, First dose on Mon05/01/22 at 2000, Until Discontinu ed, Routine [facility] ketorolac (TORADOL) injection 15 mg 2021-07 23:00: 00 05-02 22:59 :00 No 15mg 15 mg, Slow IV Push, Q6H, 4 doses, First dose on Mon05/01/22 at 1800, Last dose on Mon05/02/22 at 1200, Routine [facility] HYDROcodone -acetaminop hen (NORCO) 10-325 mg tablet 1 tablet 2021-07 19:30: 00 05-01 18:30 :00 No 1{tbl} 1 tablet, Oral, ONCE, 1 dose, On Mon05/01/22 at 1430, Routine [facility] proMETHazin e (PHENERGAN) 12.5 mg in NaCl 0.9% (NS) 50 mL IV piggyback 2021-07 18:30: 00 05-01 18:29 :00 No 12.5mg 12.5 mg, IV Piggyback, ONCE, 1 dose, On Mon05/01/22 at 1330, LISE [facility] sulfamethox azole-trime thoprim 800-160 mg per tablet 2021-07 00:00: 00 Yes [id number] 1{tbl} Take 1 tablet by mouth every 12 (twelve) hours. [facility] proMETHazin e 25 mg tablet 2021-07 0-16 00:00: 00 Yes [id number] 25mg Take 1 tablet by mouth every 6 (six) hours as needed for Nausea and Vomiting (N/V). [facility] oxybutynin XL 5 mg 24 hr tablet 2021-07 0-16 00:00: 00 Yes [id number] 5mg Take 1 tablet by mouth in the morning. [facility] phenazopyri dine 200 mg tablet 2021-07 0-16 00:00: 00 Yes [id number] 200mg Take 1 tablet by mouth in the morning and 1 tablet at noon and 1 tablet in the evening. [facility] sulfamethox azole-trime thoprim 800-160 mg per tablet 2021-07 016 00:00: 00 Yes [id number] 1{tbl} Take 1 tablet by mouth every 12 (twelve) hours. [facility] proMETHazin e 25 mg tablet 2021-07 016 00:00: 00 Yes [id number] 25mg Take 1 tablet by mouth every 6 (six) hours as needed for Nausea and Vomiting (N/V). [facility] oxybutynin XL 5 mg 24 hr tablet 2021-07 016 00:00: 00 Yes [id number] 5mg Take 1 tablet by mouth in the morning. [facility] phenazopyri dine 200 mg tablet 2021-07 016 00:00: 00 Yes [id number] 200mg Take 1 tablet by mouth in the morning and 1 tablet at noon and 1 tablet in the evening. [facility] sulfamethox azole-trime thoprim 800-160 mg per tablet 2021-07 016 00:00: 00 Yes [id number] 1{tbl} Take 1 tablet by mouth every 12 (twelve) hours. [facility] proMETHazin e 25 mg tablet 2021-07 0-16 00:00: 00 Yes [id number] 25mg Take 1 tablet by mouth every 6 (six) hours as needed for Nausea and Vomiting (N/V). [facility] oxybutynin XL 5 mg 24 hr tablet 2021 0-16 00:00: 00 Yes [id number] 5mg Take 1 tablet by mouth in the morning. [facility] phenazopyri dine 200 mg tablet 2021-07 00:00: 00 Yes [id number] 200mg Take 1 tablet by mouth in the morning and 1 tablet at noon and 1 tablet in the evening. [facility] sulfamethox azole-trime thoprim 800-160 mg per tablet 2021-07 00:00: 00 Yes [id number] 1{tbl} Take 1 tablet by mouth every 12 (twelve) hours. [facility] proMETHazin e 25 mg tablet 2021-07 00:00: 00 Yes [id number] 25mg Take 1 tablet by mouth every 6 (six) hours as needed for Nausea and Vomiting (N/V). [facility] oxybutynin XL 5 mg 24 hr tablet 2021-07 00:00: 00 Yes [id number] 5mg Take 1 tablet by mouth in the morning. [facility] phenazopyri dine 200 mg tablet 2021-07 00:00: 00 Yes [id number] 200mg Take 1 tablet by mouth in the morning and 1 tablet at noon and 1 tablet in the evening. [facility] proMETHazin e (PHENERGAN) tablet 25 mg 01-04 20:30: 00 01-04 19:35 :00 No 25mg 25 mg, Oral, ONCE, 1 dose, Mon01/04/21 at 1530, LISE [facility] cephALEXin (KEFLEX) capsule 500 mg 01-04 20:30: 00 01-04 19:35 :00 No 500mg 500 mg, Oral, ONCE, 1 dose, Mon01/04/21 at 1530, LISE
Re ason for Anti-Infec tive: Documented Infection< br>Documen tomasa Infection Site: Urine
D uration of Therapy: 10 days [facility] NaCl 0.9% (NS) bolus infusion 1,000 mL 01-04 19:15: 00 01-04 19:35 :00 No 1000mL at 999 mL/hr, 1,000 mL, IV Infusion, ONCE, 1 dose, 01/04/21 at 1415, STAT [facility] proMETHazin e 25 mg tablet 01-04 00:00: 00 Yes [id number] 25mg Take 1 tablet by mouth every 6 (six) hours as needed for Nausea and Vomiting (N/V). [facility] proMETHazin e 25 mg tablet 01-04 00:00: 00 05-01 00:00 :00 No [id number] 25mg Take 1 tablet by mouth every 6 (six) hours as needed for Nausea and Vomiting (N/V). [facility] cephALEXin (KEFLEX) 500 mg capsule 01-04 00:00: 00 01-15 04:59 :00 No [id number] 500mg Take 1 capsule by mouth 3 (three) times daily for 10 days. [facility] proMETHazin e (PHENERGAN) 12.5 mg in NaCl 0.9% (NS) 50 mL piggyback 02-02 00:45: 00 02-01 23:54 :00 No 12.5mg 12.5 mg, IV Piggyback, ONCE, 1 dose, [place] 02/02/20 at 1945, 50 mL [facility] NaCl 0.9% (NS) bolus infusion 1,000 mL 02-01 22:30: 00 02-01 23:48 :00 No 1000mL at 999 mL/hr, 1,000 mL, IV Infusion, ONCE, 1 dose, [place] 02/02/20 at 1730, STAT [facility] azithromyci n 250 mg tablet 02-01 00:00: 00 Yes [id number] 250mg Take 1 tablet by mouth daily. Take 500 mg day 1, then 250 mg days 2 to 5. [facility] benzonatate 100 mg capsule 02-01 00:00: 00 Yes [id number] 100mg Take 1 capsule by mouth 3 (three) times daily as needed for Cough. [facility] azithromyci n 250 mg tablet 02-01 00:00: 00 Yes [id number] 250mg Take 1 tablet by mouth daily. Take 500 mg day 1, then 250 mg days 2 to 5. [facility] azithromyci n 250 mg tablet 02-01 00:00: 00 Yes [id number] 250mg Take 1 tablet by mouth daily. Take 500 mg day 1, then 250 mg days 2 to 5. [facility] benzonatate 100 mg capsule 02-01 00:00: 00 Yes [id number] 100mg Take 1 capsule by mouth 3 (three) times daily as needed for Cough. [facility] benzonatate 100 mg capsule 02-01 00:00: 00 Yes [id number] 100mg Take 1 capsule by mouth 3 (three) times daily as needed for Cough. [facility] proMETHazin e 25 mg tablet 02-01 00:00: 00 Yes [id number] 25mg Take 1 tablet by mouth every 4 (four) hours as needed for Nausea and Vomiting (N/V). [facility] azithromyci n 250 mg tablet 02-01 00:00: 00 Yes [id number] 250mg Take 1 tablet by mouth daily. Take 500 mg day 1, then 250 mg days 2 to 5. [facility] benzonatate 100 mg capsule 02-01 00:00: 00 Yes [id number] 100mg Take 1 capsule by mouth 3 (three) times daily as needed for Cough. [facility] azithromyci n 250 mg tablet 02-01 00:00: 00 Yes [id number] 250mg Take 1 tablet by mouth daily. Take 500 mg day 1, then 250 mg days 2 to 5. [facility] benzonatate 100 mg capsule 02-01 00:00: 00 Yes [id number] 100mg Take 1 capsule by mouth 3 (three) times daily as needed for Cough. [facility] azithromyci n 250 mg tablet 02-01 00:00: 00 Yes [id number] 250mg Take 1 tablet by mouth daily. Take 500 mg day 1, then 250 mg days 2 to 5. [facility] benzonatate 100 mg capsule 02-01 00:00: 00 Yes [id number] 100mg Take 1 capsule by mouth 3 (three) times daily as needed for Cough. [facility] azithromyci n 250 mg tablet 02-01 00:00: 00 Yes [id number] 250mg Take 1 tablet by mouth daily. Take 500 mg day 1, then 250 mg days 2 to 5. [facility] benzonatate 100 mg capsule 02-01 00:00: 00 Yes [id number] 100mg Take 1 capsule by mouth 3 (three) times daily as needed for Cough. [facility] proMETHazin e 25 mg tablet 02-01 00:00: 00 Yes [id number] 25mg Take 1 tablet by mouth every 4 (four) hours as needed for Nausea and Vomiting (N/V). [facility] azithromyci n 250 mg tablet 02-01 00:00: 00 Yes [id number] 250mg Take 1 tablet by mouth daily. Take 500 mg day 1, then 250 mg days 2 to 5. [facility] benzonatate 100 mg capsule 02-01 00:00: 00 Yes [id number] 100mg Take 1 capsule by mouth 3 (three) times daily as needed for Cough. [facility] proMETHazin e 25 mg tablet 02-01 00:00: 00 01-04 00:00 :00 No [id number] 25mg Take 1 tablet by mouth every 4 (four) hours as needed for Nausea and Vomiting (N/V). [facility] Vital Signs Vital Name Observation Time Observation Value Comments [place] [facility] Systolic blood pressure 2022-08-31 16:50:00 125 mm[Hg] [facility] Diastolic blood pressure 2022-08-31 16:50:00 90 mm[Hg] [facility] Heart rate 2022-08-31 16:50:00 118 /min Unive [facility] Body temperature 2022-08-31 16:50:00 36.83 Carmen [facility] Respiratory rate 2022-08-31 16:50:00 20 /min [facility] Body weight 2022-08-31 16:50:00 90.719 kg [facility] BMI 2022-08-31 16:50:00 36.58 kg/m2 [facility] Oxygen saturation in Arterial blood by Pulse oximetry 2022-08-31 16:50:00 99 /min [facility] Systolic blood pressure 2022-07-15 22:04:07 111 mm[Hg] [facility] Diastolic blood pressure 2022-07-15 22:04:07 92 mm[Hg] [facility] Heart rate 2022-07-15 22:04:07 88 /min Unive [facility] Respiratory rate 2022-07-15 22:04:07 16 /min [facility] Oxygen saturation in Arterial blood by Pulse oximetry 2022-07-15 22:04:07 100 /min [facility] Body temperature 2022-07-15 17:30:00 37 Carmen [facility] Body height 2022-07-15 17:30:00 157.5 cm [facility] Body weight 2022-07-15 17:30:00 90.719 kg [facility] BMI 2022-07-15 17:30:00 36.58 kg/m2 [facility] Systolic blood pressure 2022-05-01 19:30:43 112 mm[Hg] [facility] Diastolic blood pressure 2022-05-01 19:30:43 76 mm[Hg] [facility] Heart rate 2022-05-01 19:30:43 88 /min Unive [facility] Body temperature 2022-05-01 19:30:43 37 Carmen [facility] Respiratory rate 2022-05-01 19:30:43 18 /min [facility] Oxygen saturation in Arterial blood by Pulse oximetry 2022-05-01 19:30:43 100 /min [facility] Body weight 2022-05-01 17:38:00 87.544 kg [facility] BMI 2022-05-01 17:38:00 35.30 kg/m2 [facility] Systolic blood pressure 2021-01-04 19:00:00 109 mm[Hg] [facility] Diastolic blood pressure 2021-01-04 19:00:00 67 mm[Hg] [facility] Heart rate 2021-01-04 19:00:00 88 /min Un[facility] Respiratory rate 2021-01-04 19:00:00 19 /min [facility] Oxygen saturation in Arterial blood by Pulse oximetry 2021-01-04 19:00:00 100 /min [facility] Body temperature 2021-01-04 17:31:00 37.17 Carmen [facility] Body weight 2021-01-04 17:31:00 87.544 kg [facility] BMI 2021-01-04 17:31:00 35.30 kg/m2 [facility] Systolic blood pressure 2020-02-03 00:13:53 134 mm[Hg] [facility] Diastolic blood pressure 2020-02-03 00:13:53 89 mm[Hg] [facility] Heart rate 2020-02-03 00:13:53 101 /[facility] Respiratory rate 2020-02-03 00:13:53 20 /min [facility] Oxygen saturation in Arterial blood by Pulse oximetry 2020-02-03 00:13:53 97 /min [facility] Body temperature 2020-02-02 18:46:00 37.83 Carmen [facility] Body weight 2020-02-02 18:46:00 84.823 kg [facility] BMI 2020-02-02 18:46:00 34.20 kg/m2 [facility] Body height 2020-02-02 18:45:00 157.5 cm [facility] Systolic blood pressure 2020-02-03 00:13:53 134 mm[Hg] [facility] Diastolic blood pressure 2020-02-03 00:13:53 89 mm[Hg] [facility] Heart rate 2020-02-03 00:13:53 101 /min [facility] Respiratory rate 2020-02-03 00:13:53 20 /min [facility] Oxygen saturation in Arterial blood by Pulse oximetry 2020-02-03 00:13:53 97 /min [facility] Body temperature 2020-02-02 18:46:00 37.83 Carmen [facility] Body weight 2020-02-02 18:46:00 84.823 kg [facility] BMI 2020-02-02 18:46:00 34.20 kg/m2 [facility] Body height 2020-02-02 18:45:00 157.5 cm [facility] Procedures Procedure Date / Time Performed Performing Clinicia n Source REFERRAL- REQUEST/RESPONSE 2023-02-17 05:01:00 Doctor Unassigned, [place] [facility] CONSENT/REFUSAL FOR DIAGNOSIS AND TREATMENT 2022-08-31 16:36:06 Doctor Unassigned, [place] [facility] CT ABDOMEN PELVIS W CONTRAST 2022-07-15 19:52:36 Debbie Boyce [facility] COMP. METABOLIC PANEL ([id number]) 2022-07-15 19:34:00 Debbie Boyce [facility] CBC WITH DIFF 2022-07-15 19:34:00 [facility] 2022-07-15 19:34:00 Debbie Boyce [facility] POCT TEST 2022-07-15 19:34:00 Kirit Boyce [facility] CONSENT/REFUSAL FOR DIAGNOSIS AND TREATMENT 2022-07-15 17:04:45 Doctor Unassigned, [place] [facility] CT ABDOMEN PELVIS WO CONTRAST 2022-05-01 18:06:33 Marcio Augustine [facility] COMP. METABOLIC PANEL ([id number]) 2022-05-01 17:58:00 Marcio Augustine [facility] CBC WITH DIFF 2022-05-01 17:58:00 Marcio Augustine [facility] URINALYSIS 2022-05-01 17:41:00 Marcio Augustine [facility] NOTICE OF PRIVACY PRACTICES 2022-05-01 17:31:57 Doctor Unassigned, [place] [facility] CONSENT/REFUSAL FOR DIAGNOSIS AND TREATMENT 2022-05-01 17:28:36 Doctor Unassigned, [place] [facility] LIPASE 2021-01-04 17:41:00 Gagandeep Rutherford [facility] COMP. METABOLIC PANEL ([id number]) 2021-01-04 17:41:00 Gagandeep Rutherford [facility] CBC WITH DIFF 2021-01-04 17:41:00 Gagandeep Rutherford [facility] URINALYSIS 2021-01-04 17:41:00 Gagandeep Rutherford [facility] POCT TEST 2021-01-04 17:41:00 Gagandeep Rutherford [facility] NOTICE OF PRIVACY PRACTICES 2021-01-04 17:17:35 Doctor Unassigned, [place] [facility] CONSENT/REFUSAL FOR DIAGNOSIS AND TREATMENT 2021-01-04 17:17:20 Doctor Unassigned, [place] [facility] XR CHEST 1 VW COVID 2020-02-02 22:20:20 Ana Laura Perez [facility] CT ABDOMEN PELVIS WO CONTRAST 2020-02-02 22:14:49 Rafael Perez [facility] COMP. METABOLIC PANEL ([id number]) 2020-02-02 21:58:00 Rafael Perez [facility] CBC WITH DIFF 2020-02-02 21:58:00 Rafael Perez [facility] POCT TEST 2020-02-02 21:58:00 Ana Laura Perez [facility] URINALYSIS 2020-02-02 21:51:00 [facility] NOW RAPID TESTING) 2020-02-02 21:48:00 Rafael Perez [facility] NOTICE OF PRIVACY PRACTICES 2020-02-02 18:28:09 Doctor Unassigned, [place] [facility] CONSENT/REFUSAL FOR DIAGNOSIS AND TREATMENT 2020-02-02 18:21:41 Doctor Unassigned, [place] [facility] Encounters Start Date/Time End Date/Time Encounter Type Admission Type Attending [facility] Care Department Encounter ID Source 2023-06-30 13:51:15 2023-06-30 13:51:15 Outpatient [facility] [id number] Dani Salamanca 2023-05-26 17:25:40 2023-05-26 17:25:40 Outpatient [facility] [id number] Dani Salamanca 2023-02-23 09:27:08 2023-02-23 09:27:08 Outpatient [facility] [id number] Dani Salamanca 2023-02-20 10:16:33 2023-02-20 10:16:33 Outpatient [facility] [id number] Dani Colvin Cheikh 2023-02-17 10:05:32 2023-02-17 10:05:32 Outpatient [facility] [id number] Dani Colvin Cheikh 2023-02-17 00:00:00 2023-02-17 00:00:00 Orders Only Doctor Unassigned, [place] [facility] [id number] [facility] 2022-12-08 09:36:02 2022-12-08 09:36:02 Outpatient [facility] [id number] Dani Colvin Cheikh 2022-12-05 09:31:37 2022-12-05 09:31:37 Outpatient [facility] [id number] Dani Colvin Cheikh 2022-12-01 09:16:39 2022-12-01 09:16:39 Outpatient [facility] [id number] Dani Colvin Cheikh 2022-09-22 17:04:02 2022-09-22 17:04:02 Outpatient [facility] [id number] Dani Salamanca 2022-08-31 10:51:00 2022-08-31 11:41:00 Emergency X SUPRIYA PFEIFFER [facility] ERT [id number] [facility] 2022-08-31 10:51:00 2022-08-31 11:41:00 Emergency Supriya Pfeiffer [facility] [id number] [facility] 2022-07-15 11:31:00 2022-07-15 16:31:00 Emergency DEBBIE GONZALEZ [facility] ERT [id number] [facility] 2022-07-15 11:31:00 2022-07-15 16:31:00 Emergency Debbie Boyce [facility] 1.2.840.114 350.1.13.10 4.2.7.2.686 [id number] 084 [id number] [facility] 2022-05-01 12:42:00 2022-05-01 14:35:00 Emergency X MARCIO AUGUSTINE [facility] ERT [id number] [facility] 2022-05-01 12:42:00 2022-05-01 14:35:00 Emergency Marcio Augustine [facility] 1.2.840.114 350.1.13.10 4.2.7.2.686 [id number] [id number] [facility] 2021-01-04 12:26:00 2021-01-04 15:02:00 Emergency Gagandeep [facility] 1.2.840.114 350.1.13.10 4.2.7.2.686 [id number] 084 [id number] [facility] 2021-01-04 12:26:00 2021-01-04 12:26:00 Emergency X Gagandeep RUTHERFORD [facility] ERT [id number] [facility] 2021-01-04 00:00:00 2021-01-04 00:00:00 Orders Only Doctor Unassigned, [place] [facility] 1.2.840.114 350.1.13.10 4.2.7.2.686 [id number] [id number] [facility] 2020-02-04 00:00:00 2020-02-04 00:00:00 Patient Secure Msg Doctor Unassigned, [place] [facility] 1.2.840.114 350.1.13.10 4.2.7.2.686 [id number] 019 [id number] [facility] 2020-02-02 14:49:37 2020-02-02 19:17:00 Emergency Rafael Perez [facility] 1.2.840.114 350.1.13.10 4.2.7.2.686 [id number] 084 [id number] 2020-02-02 14:49:37 2020-02-02 19:17:00 Emergency Rafael Perez [facility] 1.2.840.114 350.1.13.10 4.2.7.2.686 [id number] 084 [id number] [facility] 2020-02-02 13:20:00 2020-02-02 13:20:00 Emergency X [facility] ERT [id number] [facility] Results Test Description Test Time Test Comments Results Result Co mments Source CULTURE, URINE 2023-07-03 12:20:12 SPECIMEN NUMBER: [id number] CULTURE, URINE SPECIMEN NUMBER: [id number] SPECIMEN COMMENT: URINE SOURCE: URINE REPORT STATUS: FINAL ISOLATE NUMBER 1: ORGANISM: 07/02/2023 50-100,000 CFU/ML GRAM NEGATIVE BACILLI IDENTIFICATION: 07/03/2023 KLEBSIELLA PNEUMONIAE K. PNEUMONIAE AMOX ICILLIN/CA SENSITIVE <=8/4AMPICILLIN RESISTANT >16CEFAZOLIN SENSITIVE <=2CEFTRIAXONE SENSITIVE <=1CIPROFLOXACIN SENSITIVE <=1LEVOFLOXACIN SENSITIVE <=2NITROFURANTOIN SENSITIVE <=32PIP/TAZOBAC SENSITIVE <=16TETRACYCLINE SENSITIVE <=4TOBRAMYCIN SENSITIVE <=4TRIMETH/SULFA SENSITIVE <=2/38 NOTE: NUMBERS DISPLAYED REPRESENT MINIMUM INHIBITORY CONCENTRATION (ARTEMIO) WHICH IS EXPRESSED IN MCG/ML. UNLESS OTHERWISE INDICATED, ALL TESTING PERFORMED AT [facility] [address] [place] [address] FRONT LINE SUPERVISOR: MAKAYLA ABRAMS M.D. CLIA NUMBER [id number] [place]. [id number] CULTURE, URINE 2023-02-19 09:47:07 SPECIMEN NUMBER: [id number] CULTURE, URINE SPECIMEN NUMBER: [id number] SPECIMEN COMMENT: URINE SOURCE: URINE REPORT STATUS: FINAL FINAL REPORT: 02/19/2023 10-50,000 CFU/ML UROGENITAL LANI PRESENT NO COMMON PATHOGENS HEPATITIS PANEL, [id number] 04:21:09* Test Item Value Reference Range Interpretation Comme nts HEPATITIS A TOTAL AB (test code = 2725) NON-REACTIVE NON-REACTIVE HEPATITIS B SURF AG (test code = 2739) NON-REACTIVE NON-REACTIVE HEP B CORE TOTAL AB (test code = 2729) NON-REACTIVE NON-REACTIVE HEPATITIS B SURFACE AB (test code = 2737) NON-REACTIVE NON-REACTIVE HEPATITIS C ANTIBODY (test code = 4675) NON-REACTIVE NON-REACTIVE INTERPRETATION HEPATITIS A: (test code = 2552) (NOTE) Hepatitis A sero logy shows no evidence of past exposure to orcurrent infection with hepatitis A virus; patient not immune tohepatitis A. INTERPRETATION HEPATITIS B: (test code = 98811) (NOTE) Hepatitis B sero logy shows no evidence of past exposure to orcurrent infection with hepatitis B virus. No evidence of hepatitis Bimmunization is identified. INTERPRETATION HEPATITIS C: (test code = 43102) (NOTE) Hepatitis C sero logy shows no evidence of exposure to hepatitisC virus at this time. It can take up to 12 months after exposure tothe hepatitis C virus for antibodies to become detectable in the blood in certain patients. UNLESS OTHERWISE INDICATED, ALL TESTING PERFORMED AT [facility] [address] [place] [address] FRONT LINE SUPERVISOR: Shar SHANNONIA NUMBER [id number] [place]. [id number] COMPREHENSIVE METABOLIC [id number] 03:56:49* Test Item Value Reference Range Interpretation Comme nts GLUCOSE (test code = 2217) 101 MG/DL 70-99 H BUN (test code = 2208) 10 MG/DL 6-20 CREATININE (test code = 2213) 0.80 MG/DL 0.60-1.30 eGFR (2020 CKD-EPI) (test code = ) 91 ML/MIN/1.73 >60 CALC BUN/CREAT (test code = 2234) 13 RATIO 6-28 SODIUM (test code = 2230) 138 MEQ/L 133-146 POTASSIUM (test code = 2227) 4.0 MEQ/L 3.5-5.4 CHLORIDE (test code = 2214) 109 MEQ/L 95-107 H CARBON DIOXIDE (test code = 2205) 17 MEQ/L 19-31 L CALCIUM (test code = 2208) 8.8 MG/DL 8.5-10.5 PROTEIN, TOTAL (test code = 2228) 7.3 G/DL 6.1-8.3 ALBUMIN (test code = 2200) 4.4 G/DL 3.5-5.2 CALC GLOBULIN (test code = 2239) 2.9 G/DL 1.9-3.7 CALC A/G RATIO (test code = 2233) 1.5 RATIO 1.0-2.6 BILIRUBIN, TOTAL (test code = 2206) <0.2 MG/DL See_Comment [Automated me ssage] The system which generated this result transmitted reference range: <=1.2. The reference range was not used to interpret this result as normal/abnormal. ALKALINE PHOSPHATASE (test code = 2203) 133 U/L 40-123 H AST (test code = 8) 35 U/L 9-40 ALT (test code = 2218) 43 U/L 5-40 H LIPID [id number] 03:56:49* Test Item Value Reference Range Interpretation Comme nts CHOLESTEROL (test code = 2210) 156 MG/DL <200 TRIGLYCERIDES (test code = 2232) 142 MG/DL <150 HDL CHOLESTEROL (test code = 2220) 43 MG/DL >39 CALC LDL CHOL (test code = 7) 89 MG/DL <100 NOTE: CALCULATED LDL IS BASED ON VIOLET-HENRY METHOD WHICHINCLUDES ADJUSTABLE TRIGLYCERIDE:VLDL CHOLESTEROL RATIO.THIS FACTOR VARIES BY MEASURED TRIGLYCERIDE AND NON-HDLCHOLESTEROL CONCENTRATIONS WITH INCREASED CALCULATED LDL SEENIN HIGHER TRIGLYCERIDE OR LOWER NON-HDL SPECIMENS. FOR MOREINFORMATION, SEE CLIENT ANNOUNCEMENT AT [email or web address] RATIO LDL/HDL (test code = 2238) 2.07 RATIO <3.22 CBC W/AUTO DIFF WITH [id number] 01:44:08* Test Item Value Reference Range Interpretation Comme nts WBC (test code = 1001) 9.6 K/UL 3.5-11.0 RBC (test code = 1002) 4.73 M/UL 3.80-5.40 HEMOGLOBIN (test code = 1003) 12.5 G/DL 11.5-15.5 HEMATOCRIT (test code = 1004) 37.8 % 34.0-45.0 MCV (test code = 1005) 79.9 fL 80.0-99.0 L MCH (test code = 1006) 26.4 PG 25.0-33.0 MCHC (test code = 1007) 33.1 G/DL 31.0-36.0 RDW (test code = 1038) 15.1 % 11.5-15.0 H NEUTROPHILS (test code = 1008) 68.4 % LYMPHOCYTES (test code = 1010) 22.6 % MONOCYTES (test code = 1011) 6.7 % EOSINOPHILS (test code = 1012) 1.3 % BASOPHILS (test code = 1013) 0.3 % IMMATURE GRANULOCYTES (test code = 1036) 0.7 % NUCLEATED RBCS (test code = 1065) 0.0 /100 WBC'S See_Comment [Automated [employer],LLCa ge] The system which generated this result transmitted reference range: 0.0. The reference range was not used to interpret this result as normal/abnormal. PLATELET COUNT (test code = 1015) 442 K/UL 130-400 H ABSOLUTE NEUTROPHILS (test code = 1066) 6.55 K/UL 1.50-7.50 ABSOLUTE LYMPHOCYTES (test code = 1067) 2.16 K/UL 1.00-4.00 ABSOLUTE MONOCYTES (test code = 1068) 0.64 K/UL 0.20-1.00 ABSOLUTE EOSINOPHILS (test code = 1040) 0.12 K/UL 0.00-0.50 ABSOLUTE BASOPHILS (test code = 1069) 0.03 K/UL 0.00-0.20 ABS IMMATURE GRANULOCYTES (test code = 1020) 0.07 K/UL 0.00-0.10 ABS NUCLEATED RBCS (test code = 84513) 0.00 K/UL 0.00-0.11 VAGINAL PATHOGENS DNA [id number] 13:08:06* Test Item Value Reference Range Interpretation Comme nts CATA SPECIES (test code = 39847) POSITIVE NEGATIVE A G. VAGINALIS (test code = ) NEGATIVE NEGATIVE T. VAGINALIS (test code = ) NEGATIVE NEGATIVE Note: The [facility] irm VPIII Microbial Identification Testis a DNA probe test intended for use in the detectionand identification of Cata species, Gardnerellavaginalis and Trichomonas vaginalis nucleic acid. [facility] has important pathology staff changes effective 09/14/2022. New pathology staff will provide uninterrupted, excellent patient care and clinical consultation. See URL: [email or web address]. UNLESS OTHERWISE INDICATED, ALL TESTING PERFORMED AT [facility] [address] [place] [address] FRONT LINE SUPERVISOR: MAKAYLA ABRAMS M.D. CLIA NUMBER [id number] [facility] [place]. [id number] COMP. METABOLIC PANEL ([id number])2022-07-15 20:37:41* Test Item Value Reference Range Interpretation Comme nts NA (test code = 3998236317) 138 mmol/L 135-145 K (test code = 6890991808) 5.2 mmol/L 3.5-5.0 H CL (test code = 4004615668) 111 mmol/L 98-108 H CO2 TOTAL (test code = 9892700462) 18 mmol/L 23-31 L AGAP (test code = 5539174688) 2-16 BUN (test code = 4763712337) 11 mg/dL 7-23 GLUCOSE (test code = 5236842490) 83 mg/dL 70-110 CREATININE (test code = 2193090947) 0.97 mg/dL 0.50-1.04 TOTAL BILI (test code = 0935983177) 0.6 mg/dL 0.1-1.1 CALCIUM (test code = 4225586806) 8.5 mg/dL 8.6-10.6 L T PROTEIN (test code = 8520152067) 7.5 g/dL 6.3-8.2 ALBUMIN (test code = 5792561822) 4.1 g/dL 3.5-5.0 ALK PHOS (test code = 7881769252) 106 U/L 34-122 ALTv (test code = 1742-6) 18 U/L 5-35 AST(SGOT) (test code = 6512870729) 35 U/L 13-40 eGFR (test code = 2038525543) mL/min/1.73m2 TOMA (test code = TOMA) Association [...] imaging tests). Lab Interpretation (test code = 40760-1) Abnormal [facility] WITH [id number] 20:07:37* Test Item Value Reference Range Interpretation Comme nts WBC (test code = 6690-2) See_Comment [Automated [employer]LLCa [employer]] The system which generated this result transmitted reference range: 4.30 - 11.10 10*3/?L. The reference range was not used to interpret this result as normal/abnormal. RBC (test code = 789-8) See_Comment [Automated [employer]LLCa ge] The system which generated this result transmitted reference range: 3.93 - 5.25 10*6/?L. The reference range was not used to interpret this result as normal/abnormal. HGB (test code = 718-7) 13.1 g/dL 11.6-15.0 HCT (test code = 4544-3) 39.3 % 35.7-45.2 MCV (test code = 787-2) 86.6 fL 80.6-95.5 MCH (test code = 785-6) 28.9 pg 25.9-32.8 MCHC (test code = 786-4) 33.3 g/dL 31.6-35.1 RDW-SD (test code = 29859-9) 47.9 fL 39.0-49.9 RDW-CV (test code = 788-0) 15.1 % 12.0-15.5 PLT (test code = 777-3) See_Comment [Automated [employer]LLCa ge] The system which generated this result transmitted reference range: 166 - 358 10*3/?L. The reference range was not used to interpret this result as normal/abnormal. MPV (test code = 42401-2) 9.8 fL 9.5-12.9 NRBC/100 WBC (test code = 9759836634) See_Comment [Automated me ssage] The system which generated this result transmitted reference range: 0.0 - 10.0 /100 WBCs. The reference range was not used to interpret this result as normal/abnormal. NRBC x10^3 (test code = 3873628013) See_Comment [Automated [place] ssage] The system which generated this result transmitted reference range: 10*3/?L. The reference range was not used to interpret this result as normal/abnormal. GRAN MAT (NEUT) % (test code = 770-8) 63.9 % IMM GRAN % (test code = 4320768850) 0.50 % LYMPH % (test code = 736-9) 24.7 % MONO % (test code = 5905-5) 9.6 % EOS % (test code = 713-8) 0.9 % BASO % (test code = 706-2) 0.4 % GRAN MAT x10^3(ANC) (test code = 8983313369) 5.04 10*3/uL 1.88-7.09 IMM GRAN x10^3 (test code = 0693035929) 0.04 10*3/uL 0.00-0.06 LYMPH x10^3 (test code = 731-0) 1.95 10*3/uL 1.32-3.29 MONO x10^3 (test code = 742-7) 0.76 10*3/uL 0.33-0.92 EOS x10^3 (test code = 711-2) 0.07 10*3/uL 0.03-0.39 BASO x10^3 (test code = 704-7) 0.03 10*3/uL 0.01-0.07 [facility] [id number] 19:34:00* Test Item Value Reference Range Interpretation Comme nts POCT PREG (test code = 1605) Negative On board controls acceptable with C Line (test code = 3574) Present POCT PREG LOT # (test code = 3575) [id number] POCT PREG TEST DATE ( test code = 3576) 10-15-2023 Lab Interpretation (test cod e = 44004-8) Normal [facility]. METABOLIC PANEL (87230)2022-05-01 18:34:40* Test Item Value Reference Range Interpretation Comme nts NA (test code = 1270913713) 140 mmol/L 135-145 K (test code = 6580582473) 4.4 mmol/L 3.5-5 CL (test code = 0471088282) 110 mmol/L 98-108 H CO2 TOTAL (test code = 6857339987) 20 mmol/L 23-31 L AGAP (test code = 7105285936) 2-16 BUN (test code = 4921822215) 10 mg/dL 7-23 GLUCOSE (test code = 9738040673) 104 mg/dL 70-110 CREATININE (test code = 9749755741) 0.84 mg/dL 0.5-1.04 TOTAL BILI (test code = 5349596470) 0.3 mg/dL 0.1-1.1 CALCIUM (test code = 9136097496) 8.2 mg/dL 8.6-10.6 L T PROTEIN (test code = 8345068818) 7.0 g/dL 6.3-8.2 ALBUMIN (test code = 7104608281) 4.1 g/dL 3.5-5 ALK PHOS (test code = 1970217357) 95 U/L 34-122 ALTv (test code = 1742-6) 34 U/L 5-35 AST(SGOT) (test code = 3523159286) 45 U/L 13-40 H eGFR (test code = 9185538401) mL/min/1.73m2 TOMA (test code = TOMA) Association [...] imaging tests). Lab Interpretation (test code = 11151-8) Abnormal [facility] WITH [id number] 18:13:21* Test Item Value Reference Range Interpretation Comme nts WBC (test code = 6690-2) See_Comment [Automated messa ge] The system which generated this result transmitted reference range: 4.30 - 11.10 10*3/?L. The reference range was not used to interpret this result as normal/abnormal. RBC (test code = 789-8) See_Comment [Automated messa ge] The system which generated this result transmitted reference range: 3.93 - 5.25 10*6/?L. The reference range was not used to interpret this result as normal/abnormal. HGB (test code = 718-7) 12.3 g/dL 11.6-15 HCT (test code = 4544-3) 38.3 % 35.7-45.2 MCV (test code = 787-2) 85.7 fL 80.6-95.5 MCH (test code = 785-6) 27.5 pg 25.9-32.8 MCHC (test code = 786-4) 32.1 g/dL 31.6-35.1 RDW-SD (test code = 33443-6) 48.9 fL 39-49.9 RDW-CV (test code = 788-0) 15.7 % 12-15.5 H PLT (test code = 777-3) See_Comment [Automated messa ge] The system which generated this result transmitted reference range: 166 - 358 10*3/?L. The reference range was not used to interpret this result as normal/abnormal. MPV (test code = 61578-2) 9.5 fL 9.5-12.9 NRBC/100 WBC (test code = 9761478763) See_Comment [Automated [place] ssage] The system which generated this result transmitted reference range: 0.0 - 10.0 /100 WBCs. The reference range was not used to interpret this result as normal/abnormal. NRBC x10^3 (test code = 9249862786) See_Comment [Automated messa ge] The system which generated this result transmitted reference range: 10*3/?L. The reference range was not used to interpret this result as normal/abnormal. GRAN MAT (NEUT) % (test code = 770-8) 63.1 % IMM GRAN % (test code = 3833491329) 0.40 % LYMPH % (test code = 736-9) 24.5 % MONO % (test code = 5905-5) 9.2 % EOS % (test code = 713-8) 2.3 % BASO % (test code = 706-2) 0.5 % GRAN MAT x10^3(ANC) (test code = 0891610865) 5.11 10*3/uL 1.88-7.09 IMM GRAN x10^3 (test code = 6819753658) 0.03 10*3/uL 0-0.06 LYMPH x10^3 (test code = 731-0) 1.99 10*3/uL 1.32-3.29 MONO x10^3 (test code = 742-7) 0.75 10*3/uL 0.33-0.92 EOS x10^3 (test code = 711-2) 0.19 10*3/uL 0.03-0.39 BASO x10^3 (test code = 704-7) 0.04 10*3/uL 0.01-0.07 Lab Interpretation (test code = 18368-8) Abnormal [facility] DNA [id number] 15:54:23 * Test Item Value Reference Range Interpretation Comme nts CATA SPECIES (test code = 97916) POSITIVE NEGATIVE A G. VAGINALIS (test code = 33959) POSITIVE NEGATIVE A T. VAGINALIS (test code = 74243) NEGATIVE NEGATIVE UNLESS OTHERWISE INDICATED, ALL TESTING [facility] [address] [place] [address] FRONT LINE SUPERVISOR: THEO MEDINA M.D. CLIA NUMBER [id number] [place]. [id number] SCR MAMM BILATERAL NATHAN CAD [id number] 08:04:31 Name: Yissel : 1975 Sex: F - SCR MAMM BILATERAL NATHAN CAD DIGITALBILATERAL DIGITAL SCREENING MAMMOGRAM 3D/2D WITH CAD: 04/08/2022LINICAL: Asymptomatic. Digital breast tomosynthesis was performed in addition to routine CC and MLO views. Current mammographic images were evaluated by [employer] CAD (computer-aided detection) software. No prior exams [...] breast is indeterminate. Ultrasound with possible additional viewsare recommended. Sarah Rendon M.D. sc/:04/15/2022 08:04:31 Pals Nurse: Shireen Graham MM, [facility] MammographyMammogram BI-RADS: 0 Incomplete: Additional Imaging Evaluation NeededCT/NG, NAAT, [id number] 21:50:47* Test Item Value Reference Range Interpretation Comme nts GONORRHEA, NAAT (test code = 50598) NEGATIVE NEGATIVE IMPORTANT NO COLBY: SEE ANNOUNCEMENT AT [email or web address] Note: Assay methodology is nucleic acid amplification by molasses feed mixer mediated amplification (TMA) utilizing the Aptima Combo 2 Assay. CHLAMYDIA, NAAT (test code = 40018) NEGATIVE NEGATIVE IMPORTANT NO COLBY: SEE ANNOUNCEMENT AT [email or web address] Note: Assay methodology is nucleic acid amplification by molasses feed mixer mediated amplification (TMA) utilizing the Aptima Combo 2 Assay. HIV 1/2 4TH GEN, RFLX [id number] 04:59:08* Test Item Value Reference Range Interpretation Comme nts HIV 1/2 4TH GEN, RFLX CONF ( test code = 3514) NON-REACTIVE NON-REACTIVE HEPATITIS PANEL, [id number] 04:59:08* Test Item Value Reference Range Interpretation Comme nts HEPATITIS A IgM (test code = 22138) NON-REACTIVE NON-REACTIVE HEPATITIS B CORE IgM (test code = 4644) NON-REACTIVE NON-REACTIVE HEPATITIS B SURF AG (test code = 2739) NON-REACTIVE NON-REACTIVE HEPATITIS C ANTIBODY (test code = 4675) NON-REACTIVE NON-REACTIVE INTERPRETATION HEPATITIS A: (test code = 2552) (NOTE) Hepatitis A serology shows no evidence of acute hepatitis A. INTERPRETATION HEPATITIS B: (test code = 00272) (NOTE) Hepatitis B serology shows no evidence of acute hepatitis B andno indication of exposure to hepatitis B virus in the previous ce eight months. INTERPRETATION HEPATITIS C: (test code = 38701) (NOTE) Hepatitis C serology shows no evidence of exposure to hepatitisC virus at this time. It can take up to 12 months after exposure tothe hepatitis C virus for antibodies to become detectable in the blood in certain patients. [id number] 04:17:56* Test Item Value Reference Range Interpretation Comme nts RPR RESULT (test code = 3501) NON-REACTIVE NON-REACTIVE RPR TITER (test code = 3500) NOT INDIC. TITER NOT INDIC. UNLESS OTHERWISE INDICATED, ALL TESTING [facility]MED [facility] [address] [place] [address] FRONT LINE SUPERVISOR: THEO MEDINA M.D. [place] NUMBER [id number] [facility] [place]. [id number] Complete Metabolic [id number] 18:07:03* Test Item Value Reference Range Interpretation Comme nts NA (test code = 3727831900) 139 mmol/L 135-145 K (test code = 7399356306) 3.6 mmol/L 3.5-5.0 CL (test code = 1025931172) 109 mmol/L 98-108 H CO2 TOTAL (test code = 6988551189) 19 mmol/L 23-31 L AGAP (test code = 5274402576) 2-16 BUN (test code = 9959161424) 10 mg/dL 7-23 GLUCOSE (test code = 0004533625) 112 mg/dL 70-110 H CREATININE (test code = 1244698947) 0.89 mg/dL 0.50-1.04 TOTAL BILI (test code = 7481844929) 0.3 mg/dL 0.1-1.1 CALCIUM (test code = 6054841072) 8.1 mg/dL 8.6-10.6 L T PROTEIN (test code = 1767078571) 8.1 g/dL 6.3-8.2 ALBUMIN (test code = 1699533637) 4.3 g/dL 3.5-5.0 ALK PHOS (test code = 1109009839) 121 U/L 34-122 ALTv (test code = 1742-6) 22 U/L 5-35 AST(SGOT) (test code = 8369946145) 33 U/L 13-40 eGFR (test code = 1923789974) mL/min/1.73m2 TOMA (test code = TOMA) Association [...] imaging tests). Lab Interpretation (test code = 16112-0) Abnormal [facility] NorthwestLipase, [id number] 18:06:22* Test Item Value Reference Range Interpretation Comme nts LIPASE (test code = 6815205860) 65 U/L 0-220 Lab Interpretation (test cod e = 62580-5) Normal [facility] NorthwestUrinalysis2021-06-21 18:03:42* Test Item Value Reference Range Interpretation Comme nts APPEARANCE (test code = 8417008434) Hazy Clear A COLOR (test code = 3680988077) Reta Yellow A PH (test code = 9154642629) 4.8-8.0 SP GRAVITY (test code = 8484627063) 1.003-1.030 GLU U QUAL (test code = 3383006228) Normal Normal BLOOD (test code = 7415331235) 1+ Negative A KETONES (test code = 4878921046) Negative Negative PROTEIN (test code = 2887-8) 30 mg/dL Negative A UROBILIN (test code = 1616754320) 4.0 mg/dL Normal A BILIRUBIN (test code = 7362756528) Negative Negative NITRITE (test code = 7516514263) Positive Negative A LEUK CHARLES (test code = 0790144383) Negative Negative RBC/HPF (test code = 6931081401) See_Comment H [Automated messa ge] The system which generated this result transmitted reference range: 0 - 3 HPF. The reference range was not used to interpret this result as normal/abnormal. WBC/HPF (test code = 7668770397) See_Comment H [Automated messa ge] The system which generated this result transmitted reference range: 0 - 5 HPF. The reference range was not used to interpret this result as normal/abnormal. BACTERIA (test code = 4123477395) Many Negative A MUCOUS (test code = 2432420317) Marked Negative LPF A SQ EPITH (test code = 9428293463) HPF Lab Interpretation (test code = 35189-6) Abnormal [facility] NorthwestCBC with [id number] 17:53:21* Test Item Value Reference Range Interpretation Comme nts WBC (test code = 6690-2) See_Comment [Automated messa ge] The system which generated this result transmitted reference range: 4.30 - 11.10 10*3/?L. The reference range was not used to interpret this result as normal/abnormal. RBC (test code = 789-8) See_Comment [Automated messa ge] The system which generated this result transmitted reference range: 3.93 - 5.25 10*6/?L. The reference range was not used to interpret this result as normal/abnormal. HGB (test code = 718-7) 13.8 g/dL 11.6-15.0 HCT (test code = 4544-3) 43.2 % 35.7-45.2 MCV (test code = 787-2) 86.6 fL 80.6-95.5 MCH (test code = 785-6) 27.7 pg 25.9-32.8 MCHC (test code = 786-4) 31.9 g/dL 31.6-35.1 RDW-SD (test code = 66990-4) 48.3 fL 39.0-49.9 RDW-CV (test code = 788-0) 15.2 % 12.0-15.5 PLT (test code = 777-3) See_Comment [Automated messa ge] The system which generated this result transmitted reference range: 166 - 358 10*3/?L. The reference range was not used to interpret this result as normal/abnormal. MPV (test code = 24087-1) 9.5 fL 9.5-12.9 NRBC/100 WBC (test code = [id number]) See_Comment [Automated me ssage] The system which generated this result transmitted reference range: 0.0 - 10.0 /100 WBCs. The reference range was not used to interpret this result as normal/abnormal. NRBC x10^3 (test code = 2290304755) <0.01 See_Comment [Automated me ssage] The system which generated this result transmitted reference range: 10*3/?L. The reference range was not used to interpret this result as normal/abnormal. GRAN MAT (NEUT) % (test code = 770-8) 67.1 % IMM GRAN % (test code = 6814707066) 0.50 % LYMPH % (test code = 736-9) 21.1 % MONO % (test code = 5905-5) 10.6 % EOS % (test code = 713-8) 0.5 % BASO % (test code = 706-2) 0.2 % GRAN MAT x10^3(ANC) (test code = 8474125549) 5.75 10*3/uL 1.88-7.09 IMM GRAN x10^3 (test code = 9571315840) 0.04 10*3/uL 0.00-0.06 LYMPH x10^3 (test code = 731-0) 1.81 10*3/uL 1.32-3.29 MONO x10^3 (test code = 742-7) 0.91 10*3/uL 0.33-0.92 EOS x10^3 (test code = 711-2) 0.04 10*3/uL 0.03-0.39 BASO x10^3 (test code = 704-7) <0.03 0.01-0.07 [id number] 17:41:00* Test Item Value Reference Range Interpretation Comme nts POCT PREG (test code = 1605) negative On board controls acceptable with C Line (test code = 3574) present Lab Interpretation (test cod e = 78521-0) [facility]APID TESTING)2020-02-02 23:10:00* Test Item Value Reference Range Interpretation Comme nts SARS-CoV-2 Rapid ID NOW (test code = 67767-7) Not Detected Not Detected TOMA (test code = TOMA) ID NOW COVID-19 As say is an isothermal nucleic acid amplification test intended for the qualitative detection of nucleic acid from SARS-CoV-2 viral RNA in nasopharyngeal (CORE SHAPER) specimens. It is used under Emergency Use [...] patient testing if clinically indicated. Lab Interpretation (test code = 27147-5) [facility]2020-[facility]19 23:05:00* Test Item Value Reference Range Interpretation Comme nts APPEARANCE (test code = 2096046107) Hazy Clear A COLOR (test code = 8593693405) Yellow Yellow PH (test code = 2750105038) 4.8-8.0 SP GRAVITY (test code = 6522791689) 1.003-1.030 GLU U QUAL (test code = 2019139759) Normal Normal BLOOD (test code = 6492300792) Negative Negative KETONES (test code = 7708749405) Negative Negative PROTEIN (test code = 2887-8) Negative Negative UROBILIN (test code = 4737985263) Normal Normal BILIRUBIN (test code = 0926267997) Negative Negative NITRITE (test code = 3082580339) Negative Negative LEUK CHARLES (test code = 8382923856) Negative Negative RBC/HPF (test code = 0224668100) See_Comment H [Automated messa ge] The system which generated this result transmitted reference range: 0 - 3 HPF. The reference range was not used to interpret this result as normal/abnormal. WBC/HPF (test code = 5805853082) See_Comment [Automated messa ge] The system which generated this result transmitted reference range: 0 - 5 HPF. The reference range was not used to interpret this result as normal/abnormal. BACTERIA (test code = 1320312195) Few Negative A MUCOUS (test code = 1608866650) Moderate Negative LPF A SQ EPITH (test code = 0210287541) HPF HYAL CAST (test code = 5143185709) See_Comment [Automated messa ge] The system which generated this result transmitted reference range: <=2 LPF. The reference range was not used to interpret this result as normal/abnormal. Lab Interpretation (test code = 53549-5) Abnormal [facility]. METABOLIC PANEL (40048)2020-02-02 22:52:00* Test Item Value Reference Range Interpretation Comme nts NA (test code = 8216541610) 140 mmol/L 135-145 K (test code = 5731677094) 3.8 mmol/L 3.5-5 CL (test code = 6075480181) 111 mmol/L 98-108 H CO2 TOTAL (test code = 7421344075) 20 mmol/L 23-31 L AGAP (test code = 2830674739) 2-16 BUN (test code = 6428424213) 10 mg/dL 7-23 GLUCOSE (test code = 7084117092) 94 mg/dL 70-110 CREATININE (test code = 8527546794) 1.11 mg/dL 0.5-1.04 H TOTAL BILI (test code = 0230681246) 0.4 mg/dL 0.1-1.1 CALCIUM (test code = 5262350278) 8.8 mg/dL 8.6-10.6 T PROTEIN (test code = 8526713496) 8.4 g/dL 6.3-8.2 H ALBUMIN (test code = 9229231077) 4.4 g/dL 3.5-5 ALK PHOS (test code = 9432642639) 97 U/L 34-122 ALTv (test code = 1742-6) 36 U/L 5-35 H AST(SGOT) (test code = 3844250060) 44 U/L 13-40 H eGFR Calculation (Non-) (test code = 3135479929) mL/min/1.73m2 eGFR Calculation () (test code = 9843499055) mL/min/1.73m2 TOMA (test code = TOMA) Association [...] imaging tests). Lab Interpretation (test code = 16182-3) [facility] WO [id number] 22:35:331. No definite acute intra-abdominal or intrapelvic pathology on thislimited noncontrast study.2. Left nephrolithiasis without evidence of hydronephrosis. Changes ofright nephrectomy3. Diverticulosisof the colon without evidence of diverticulitis4. Hepatic [...] No nodules are seen. The right kidney hasbeen removed. Left kidney is normal in size. A small 4mm calcification is seen in the inferior poleof the left kidney. Nohydronephrosis is noted. Abdominal aorta is normal in caliber. No free fluid o r free air isidentified in the abdomen. No [...] gallbladder is removed. No bile duct dilation isap preciated.Pancreas is grossly normal. No ductal dilation is [...] in caliber. There is no evidence of bow elobstruction. The appendix is not visualized and may have been removed. Afew scattered diverticulaare seen in the descending colon.The uterus is somewhat lobular in appearance. A small low attenuationmasses present on the right side of the fundal portion of the uterusmeasuring approximately 1 cm.The urinary bladder is decompressed and isnot adequately evaluated. The ovaries appear grossly normal. No free fluidis seen within the pelvis.No suspicious abnormality of the bones is seen.IMPRESSION1. No definite acute intra-abdominal or intrapelvic pathology on thislimited noncontrast study.2. Left nephrolithiasis without evidence of hydronephrosis. Changes ofright nephrectomy3. Diverticulosis of the colon without evidence of diverticulitis4. Hepatic steatosis5. Fibroids [facility] WITH [id number] 22:29:00* Test Item Value Reference Range Interpretation Comme nts WBC (test code = 6690-2) See_Comment [Automated messa ge] The system which generated this result transmitted reference range: 4.30 - 11.10 10*3/?L. The reference range was not used to interpret this result as normal/abnormal. RBC (test code = 789-8) See_Comment [Automated messa ge] The system which generated this result transmitted reference range: 3.93 - 5.25 10*6/?L. The reference range was not used to interpret this result as normal/abnormal. HGB (test code = 718-7) 13.9 g/dL 11.6-15 HCT (test code = 4544-3) 42.0 % 35.7-45.2 MCV (test code = 787-2) 86.2 fL 80.6-95.5 MCH (test code = 785-6) 28.5 pg 25.9-32.8 MCHC (test code = 786-4) 33.1 g/dL 31.6-35.1 RDW-SD (test code = 70239-5) 45.1 fL 39-49.9 RDW-CV (test code = 788-0) 14.2 % 12-15.5 PLT (test code = 777-3) See_Comment [Automated [employer]LL[employer] ge] The system which generated this result transmitted reference range: 166 - 358 10*3/?L. The reference range was not used to interpret this result as normal/abnormal. MPV (test code = 75055-8) 9.7 fL 9.5-12.9 NRBC/100 WBC (test code = 6320483320) See_Comment [Automated me ssage] The system which generated this result transmitted reference range: 0.0 - 10.0 /100 WBCs. The reference range was not used to interpret this result as normal/abnormal. NRBC x10^3 (test code = 5909158407) <0.01 See_Comment [Automated me ssage] The system which generated this result transmitted reference range: 10*3/?L. The reference range was not used to interpret this result as normal/abnormal. GRAN MAT (NEUT) % (test code = 770-8) 59.9 % IMM GRAN % (test code = 1121151061) 0.50 % LYMPH % (test code = 736-9) 29.0 % MONO % (test code = 5905-5) 9.4 % EOS % (test code = 713-8) 0.9 % BASO % (test code = 706-2) 0.3 % GRAN MAT x10^3(ANC) (test code = 4418174156) 4.70 10*3/uL 1.88-7.09 IMM GRAN x10^3 (test code = 2975476658) 0.04 10*3/uL 0-0.06 LYMPH x10^3 (test code = 731-0) 2.28 10*3/uL 1.32-3.29 MONO x10^3 (test code = 742-7) 0.74 10*3/uL 0.33-0.92 EOS x10^3 (test code = 711-2) 0.07 10*3/uL 0.03-0.39 BASO x10^3 (test code = 704-7) <0.03 0.01-0.07 [facility] 1 VW [id number] 22:28:101. Abnormal changes in the right upper lobe suggestive of pneumonia,including COVID-19 pneumonia. Disclaimer: Generally, the findings on chest imaging in COVID-19 are notspecific, and overlap with other infections, including influenza, H1N1,SARS and MERS.According to the Centers for Disease Control(CDC) and the [employer], viral testing remains the only [...] thelungs is clear.Pleura: No pleural effusion or pneu mothorax is seen. The heart is normal insize.No acute bony abnormality.IMPRESSION1. Abnormal changes in the right upper lobe suggestive of pneumonia,including COVID-19 pneumonia.Disclaimer: Generally, the findings on chest imaging in COVID-19 are notspecific, and overlap with other infections, including influenza, H1N1,SARS and MERS.According to the Centers for Disease Control (CDC) and the [employer], viral testing remains the only specific method of diagnosiseven if CXR or CT findings are suggestive of COVID-19.[facility]PO[facility] [id number] 21:58:00* Test Item Value Reference Range Interpretation Comme nts POCT PREG (test code = 1605) negative On board controls acceptable with C Line (test code = 3574) present POCT PREG LOT # (test code = 3575) [id number] POCT PREG TEST DATE ( test code = 3576) 02-13-2021 Lab Interpretation (test cod e = 17567-0) Normal [facility]"
[2023-07-07 16:11] LABS: Absolute Lymphocytes (CBC) 2.1 K/uL (0.7-4.9); Hematocrit 32.9 % (36.0-45.0); Lymphocytes % 23.7 % (15.3-44.8); MCV 77.4 fL (80-100); MPV 7.2 fL (7.6-11.3); Platelets 375 thou/uL (152-406); RBC Red Blood Cell Count 4.25 M/uL (3.86-4.86)
[2023-07-07 16:12] LABS: Specific Gravity 1.018 (1.005-1.030)
[2023-07-07 16:29] LABS: Albumin 3.2 g/dL (3.4-5.0); Bilirubin Total 0.1 mg/dL (0.2-1.0); Potassium 3.5 mEq/L (3.5-5.1); Protein, Total 7.5 g/dL (6.4-8.2)
[2023-07-07 16:44] LABS: Specific Gravity 1.018 (1.005-1.030); Urine Bacteria None Seen /HPF (<20); Urine Bilirubin NEGATIVE (Negative); Urine Blood 2+ (Negative); Urine Clarity Turbid (Clear); Urine Color Dark-Yellow (Yellow); Urine Glucose NEGATIVE (Negative); Urine Mucus 1+ /HPF (None Seen); Urine Protein NEGATIVE (Negative); Urine Urobilinogen Normal (Normal); Urine pH 6.5 (5.0-7.0)
--- NOTE | 2023-07-07 17:58 | RAD REPORT ---
EXAM DESCRIPTION: CT - Abdomen Pelvis W Contrast - 07/07/2023 5:04 pm CLINICAL HISTORY: Flank pain;Abd pain COMPARISON: Abdomen Pelvis Wo Contrast dated 05/31/2023; Abdomen Pelvis Wo Contrast dated 023 TECHNIQUE: Thin cut axial CT imaging of the abdomen and pelvis was performed following intravenous a dministration of 100 mL Isovue 300. Multiplanar reformats were generated and reviewed. All CT scans are performed using dose optimization technique as appropriate and may include automated exposure control or mA/KV adjustment according to patient size. FINDINGS: No suspicious findings in the lung bases. The liver, spleen, adrenal glands, and pancreas show no suspicious findings. Gallbladder was surgical ly removed. Sequelae of right nephrectomy again seen. Nonobstructing 3-4 mm left upper to mid fall, and 6 mm left lower pole nonobstructing calculi. No hydronephrosis or suspicious renal mass. No dilated bowel loops or bowel wall thickening. No free air, free fluid or inflammatory stranding. N o hernia, mass or bulky lymphadenopathy. Left adnexal 2.4 cm cyst and right fundal cystic lesion 1.7 cm are stable. Likely benign small cystic region of the cervix on the right. Appendix is unremarkable . The urinary bladder is without significant finding. No suspicious bony findings. IMPRESSION: No acute intra-abdominal process. Nonobstructing left renal calculi as above. Status post right nephrectomy and cholecystectomy. Other incidental findings as above.
--- NOTE | 2023-07-07 18:06 | ER ---
Nurse's Notes [facility] Name: Yissel Carmona Age: 47 yrs Sex: Female : 1975 Arrival Date: 07/07/2023 Time: 14:55 Bed 18 Private MD: Diagnosis: ureterolithiasis Presentation: 07/07 15:08 Chief complaint: Patient states: back pain, feels like possible kidney stone or ko1 infection, also nauseated. Coronavirus screen: At this time, the client does not indicate any symptoms associated with coronavirus-19. Ebola Screen: No symptoms or risks identified at this time. Initial Sepsis Screen: Does the patient meet any 2 criteria? No. Patient's initial sepsis screen is negative. Does the patient have a suspected source of infection? No. Patient's initial sepsis screen is negative. Risk Assessment: Do you want to hurt yourself or someone else? Patient reports no desire to harm self or others. Onset of symptoms is unknown. 15:08 Method Of Arrival: Ambulatory ko1 15:08 Acuity: NEVAEH 4 ko1 Triage Assessment: 15:09 General: Appears in no apparent distress. Behavior is calm, cooperative, appropriate ko1 for age. Pain: Complains of pain in back. GI: Reports nausea. Historical: - Allergies: 15:09 Cipro; ko1 15:09 Reglan; ko1 15:09 Rocephin; ko1 15:09 Stadol; ko1 15:09 tequin; ko1 15:09 Toradol; ko1 15:09 tramadol; ko1 15:09 Zofran; ko1 - PMHx: 15:09 Migraines; one kidney; ko1 - PSHx: 15:09 Cholecystectomy; Right Kidney Removed; ko1 - Immunization history:: Adult Immunizations unknown. - Social history:: Smoking status: Patient denies any tobacco usage or history of. Screenin:45 [facility] ED Fall Risk Assessment (Adult) History of falling in the last 3 months, kc6 including since admission No falls in past 3 months (0 pts) Confusion or Disorientation No (0 pts) Intoxicated or Sedated No (0 pts) Impaired Gait No (0 pts) Mobility Assist Device Used No (0 pt) Altered Elimination No (0 pt) Score/Fall Risk Level 0 - 2 = Low Risk. Abuse screen: Denies threats or abuse. Denies injuries from another. Nutritional screening: No deficits noted. Tuberculosis screening: No symptoms or risk factors identified. Assessment: 15:46 General: Appears in no apparent distress. comfortable, well groomed, well developed, kc6 Behavior is calm, cooperative, appropriate for age. Pain: Complains of pain in back. Neuro: Level of Consciousness is awake, alert, obeys commands, Oriented to person, place, time, situation, Appropriate for age. Cardiovascular: Capillary refill < 3 seconds. Respiratory: Airway is patent Trachea midline Respiratory effort is even, unlabored, Respiratory pattern is regular, symmetrical. GI: Abdomen is round non-distended, Reports nausea, vomiting. : No signs and/or symptoms were reported regarding the genitourinary system. EENT: No signs and/or symptoms were reported regarding the EENT system. Derm: No signs and/or symptoms reported regarding the dermatologic system. Skin is intact, is healthy with good turgor, Skin is pink, warm \T\ dry. Musculoskeletal: No signs and/or symptoms reported regarding the musculoskeletal system. Circulation, motion, and sensation intact. Capillary refill < 3 seconds, Range of motion: intact in all extremities. 16:46 Reassessment: Patient appears in no apparent distress at this time. No changes from kc6 previously documented assessment. Patient and/or family updated on plan of care and expected duration. Pain level reassessed. Patient is alert, oriented x 3, equal unlabored respirations, skin warm/dry/pink. 17:46 Reassessment: Patient appears in no apparent distress at this time. No changes from kc6 previously documented assessment. Patient and/or family updated on plan of care and expected duration. Pain level reassessed. Patient is alert, oriented x 3, equal unlabored respirations, skin warm/dry/pink. Vital Signs: 15:11 BP 121 / 74; Pulse 98; Resp 18; Temp 97; Pulse Ox 100% ; ko1 16:52 BP 117 / 74; Pulse 86; Resp 17 S; Pulse Ox 100% on R/A; kc6 ED Course: 14:58 Patient arrived in ED. im 15:02 Yas Camacho [facility]-C [facility]. sb4 15:02 Joaquin Vaughn MD is Attending Physician. sb4 15:09 Triage completed. ko1 15:09 Arm band placed on right wrist. Patient placed in waiting room, Patient notified of ko1 wait time. 15:24 Marybel Lovelace, RN is Primary Nurse. kc6 15:45 Patient has correct armband on for positive identification. Bed in low position. Call kc6 light in reach. Side rails up X 1. Client placed on continuous cardiac and pulse oximetry monitoring. NIBP monitoring applied. 15:45 Inserted saline lock: 20 gauge in right antecubital area, using aseptic technique. kc6 Blood collected. Patient maintains SpO2 saturation greater than 95% on room air. 17:05 CT Abd/Pelvis - IV Contrast Only In Process Unspecified. EDMS 18:04 Marino Rivera MD is Referral Physician. sb4 18:18 No provider procedures requiring assistance completed. IV discontinued, intact, kc6 bleeding controlled, No redness/swelling at site. Pressure dressing applied. Administered Medications: 15:11 CANCELLED (Inappropriate at this time): ondansetron 4 mg IVP once; over 2 minutes sb4 15:45 Drug: NS 0.9% IV 1000 ml IV at 1 bolus Per protocol; 1000 mL bolus Route: IV; Rate: 1 kc6 bolus; Site: right antecubital; 16:54 Follow up: Response: No adverse reaction; IV Status: Completed infusion; IV Intake: kc6 1000ml 15:45 Drug: morphine IVP or IV 4 mg IVP once over 4 mins Route: IVP; Infused Over: 4 mins; kc6 Site: right antecubital; 16:53 Follow up: Response: No adverse reaction; Pain is decreased; RASS: Alert and Calm (0) kc6 15:45 Drug: Promethazine IVP 12.5 mg IVP once Route: IVP; Site: right antecubital; kc6 16:53 Follow up: Response: No adverse reaction; Nausea is decreased; Vomiting decreased kc6 18:03 Drug: fentaNYL (PF) IVP 50 mcg IVP once Route: IVP; Site: right antecubital; bp 18:17 Follow up: Response: No adverse reaction; Pain is decreased; RASS: Alert and Calm (0) kc6 18:03 Drug: Promethazine IVP 12.5 mg IVP once Route: IVP; Site: right antecubital; bp 18:18 Follow up: Response: No adverse reaction; Nausea is decreased; Vomiting decreased kc6 18:17 Drug: Flomax PO 0.4 mg PO once Route: PO; kc6 18:18 Follow up: Response: No adverse reaction kc6 Medication: 18:18 VIS not applicable for this client. kc6 Intake: 16:54 IV: 1000ml; Total: 1000ml. kc6 Outcome: 18:05 Discharge ordered by . sb4 18:18 Discharged to home ambulatory, with family, kc6 18:18 Condition: improved 18:18 Discharge instructions given to patient, Instructed on discharge instructions, follow up and referral plans. medication usage, Demonstrated understanding of instructions, follow-up care, medications, Prescriptions given X 4, 18:18 Patient left the ED. kc6 Signatures: Dispatcher [employer] EDVolodymyr Garza RN RN Marybel Hussein RN RN kc6 Nicci Montoya RN RN Yas Strauss, PA-C PA-C sb4 Marcy Gray
--- NOTE | 2023-07-07 18:06 | EDPHYS ---
Physician Documentation [facility] Name: Yissel Carmona Age: 47 yrs Sex: Female : 1975 Arrival Date: 07/07/2023 Time: 14:55 Bed 18 Private MD: ED Physician Joaquin Vaughn HPI: 07/07 15:48 This 47 yrs old Female presents to ER via Ambulatory with complaints of Low sb4 Back Pain, Nausea/Vomiting. 15:48 The patient complains of pain in the left low back. The pain does not radiate. Onset: sb4 The symptoms/episode began/occurred 3 day(s) ago. Modifying factors: The symptoms are alleviated by nothing. the symptoms are aggravated by nothing. Associated signs and symptoms: Pertinent positives: nausea, vomiting, Pertinent negatives: dysuria, fever. The patient has experienced similar episodes in the past, a few times. The patient has not recently seen a physician. Historical: - Allergies: 15:09 Cipro; ko1 15:09 Reglan; ko1 15:09 Rocephin; ko1 15:09 Stadol; ko1 15:09 tequin; ko1 15:09 Toradol; ko1 15:09 tramadol; ko1 15:09 Zofran; ko1 - PMHx: 15:09 Migraines; one kidney; ko1 - PSHx: 15:09 Cholecystectomy; Right Kidney Removed; ko1 - Immunization history:: Adult Immunizations unknown. - Social history:: Smoking status: Patient denies any tobacco usage or history of. ROS: 15:48 Constitutional: Negative for fever, chills, and weight loss, sb4 15:48 Abdomen/GI: Positive for nausea and vomiting, 15:48 Back: Positive for flank pain, on the left, 15:48 All other systems are negative, Exam: 15:48 Constitutional: This is a well developed, well nourished patient who is awake, alert, sb4 and in no acute distress. Head/Face: Normocephalic, atraumatic. Eyes: Extra-ocular motions intact. Periorbital areas with no swelling, redness, or edema. ENT: Mucous membranes moist. Cardiovascular: Regular rate and rhythm with a normal S1 and S2. Respiratory: Lungs have equal breath sounds bilaterally, clear to auscultation and percussion. No rales, rhonchi or wheezes noted. No increased work of breathing, no retractions or nasal flaring. Abdomen/GI: Soft, non-tender, no distension. Skin: Warm, dry with normal turgor. Normal color with no rashes, no lesions, and no evidence of cellulitis. MS/ Extremity: Pulses equal, no cyanosis. Neurovascular intact. Full, normal range of motion. Neuro: Awake and alert, GCS 15, oriented to person, place, time, and situation. Motor strength 5/5 in all extremities. Sensory grossly intact. 15:48 Back: CVA tenderness, that is mild, is noted on the left, Vital Signs: 15:11 BP 121 / 74; Pulse 98; Resp 18; Temp 97; Pulse Ox 100% ; ko1 16:52 BP 117 / 74; Pulse 86; Resp 17 S; Pulse Ox 100% on R/A; kc6 MDM: 15:35 Patient medically screened. sb4 15:48 Differential diagnosis: nephrolithiasis, pyelonephritis, UTI. sb4 18:04 Data reviewed: vital signs, nurses notes, lab test result(s), radiologic studies, and sb4 as a result, I will discharge patient. Counseling: I had a detailed discussion with the patient and/or guardian regarding the historical points, exam findings, and any diagnostic results supporting the discharge/admit diagnosis, lab results, radiology results, the need for outpatient follow up, a urologist, to return to the emergency department if symptoms worsen or persist or if there are any questions or concerns that arise at home. 07/07 15:10 Order name: CBC with Diff; Complete Time: 16:17 sb4 07/07 15:10 Order name: CMP; Complete Time: 16:30 sb4 07/07 15:10 Order name: Test, Urine; Complete Time: 16:14 sb4 07/07 15:10 Order name: Urinalysis w/ reflexes; Complete Time: 16:48 sb4 07/07 15:10 Order name: CT Abd/Pelvis - IV Contrast Only; Complete Time: 17:59 sb4 07/07 15:10 Order name: IV Saline Lock; Complete Time: 15:45 sb4 07/07 15:10 Order name: Labs collected and sent; Complete Time: 15:45 sb4 Administered Medications: 15:11 CANCELLED (Inappropriate at this time): ondansetron 4 mg IVP once; over 2 minutes sb4 15:45 Drug: NS 0.9% IV 1000 ml IV at 1 bolus Per protocol; 1000 mL bolus Route: IV; Rate: 1 kc6 bolus; Site: right antecubital; 16:54 Follow up: Response: No adverse reaction; IV Status: Completed infusion; IV Intake: kc6 1000ml 15:45 Drug: morphine IVP or IV 4 mg IVP once over 4 mins Route: IVP; Infused Over: 4 mins; kc6 Site: right antecubital; 16:53 Follow up: Response: No adverse reaction; Pain is decreased; RASS: Alert and Calm (0) kc6 15:45 Drug: Promethazine IVP 12.5 mg IVP once Route: IVP; Site: right antecubital; kc6 16:53 Follow up: Response: No adverse reaction; Nausea is decreased; Vomiting decreased kc6 18:03 Drug: fentaNYL (PF) IVP 50 mcg IVP once Route: IVP; Site: right antecubital; bp 18:17 Follow up: Response: No adverse reaction; Pain is decreased; RASS: Alert and Calm (0) kc6 18:03 Drug: Promethazine IVP 12.5 mg IVP once Route: IVP; Site: right antecubital; bp 18:18 Follow up: Response: No adverse reaction; Nausea is decreased; Vomiting decreased kc6 18:17 Drug: Flomax PO 0.4 mg PO once Route: PO; kc6 18:18 Follow up: Response: No adverse reaction kc6 Disposition: 21:19 Co-signature as Attending Physician, Joaquin Vaughn MD I agree with the assessment and kdr plan of care. Disposition Summary: 07/07/23 18:05 Discharge Ordered Notes: Location: Home sb4 Problem: new sb4 Symptoms: have improved sb4 Condition: Stable sb4 Diagnosis - ureterolithiasis sb4 Followup: sb4 - With: Marino Rivera MD - When: As needed - Reason: Further diagnostic work-up, Recheck today's complaints, Continuance of care, Re-evaluation by your physician Discharge Instructions: - Discharge Summary Sheet sb4 - Kidney Stones, [id number] sb4 Forms: - Medication Reconciliation Form sb4 - Thank You Letter sb4 - Antibiotic Education sb4 - Prescription Opioid Use sb4 - Patient Portal Instructions sb4 - Leadership Thank You Letter sb4 Prescriptions: - acetaminophen-codeine 300-30 mg Oral tablet - take 1 tablet ORAL route every 6 hours; 12 tablet; Refills: 0, Product sb4 Selection Permitted - tamsulosin 0.4 mg Oral capsule - take 1 capsule ORAL route every day at bedtime; 20 capsule; Refills: 0, Product sb4 Selection Permitted - Benadryl 25 mg Oral Capsule - take 1 capsule ORAL route every 6 hours As needed; 30 tablet; Refills: 0, sb4 Product Selection Permitted - promethazine 25 mg Oral Tablet - take 1 tablet ORAL route every 6 hours As needed; 20 tablet; Refills: 0, sb4 Product Selection Permitted Signatures: Dispatcher [employer] EDMS Joaquin Vaughn MD MD kdr Peltier, Brian RN RN bp Marybel Lovelace RN RN [email or web address] Nicci Montoya RN RN ko1 Yas Camacho PA-C PA-C sb4 Corrections: (The following items were deleted from the chart) 15:11 15:10 Ondansetron IVP 4 mg IVP once; over 2 minutes ordered. sb4 sb4
[2023-07-07 19:16] VITALS: BP 117/74; TEMP 97; O2SAT 100
== END ==
LOC: ER 14:55
DX: N20.1 Calculus of ureter (principal); R11.2 Nausea with vomiting, unspecified; Z90.5 Acquired absence of kidney
CPT/HCPCS: 36415; 74177; 80053; 81001; 81025; 85025; 96361; 96374; 96375; 99285; J2550; J3010; J7030; Q9967

== ENCOUNTER → 2023-07-23 | Emergency (ER) | payer SELFPAY ==
[~2023-07-23] MED LIST changes: -FENTANYL CITR 100 MCG/2 ML ONE; +PROMETHAZINE 25 MG TABLET ONE; -PROMETHAZINE INJ 25 MG/ML AMP ONE; -TAMSULOSIN 0.4 MG SR CAP ONE
--- OUTSIDE RECORDS SUMMARY | 2023-07-23 08:39 | XMS REPORT | Continuity of Care Document ---
Author Name Unknown Address [address] [facility] [address] [place] [address] [facility] thconnect Address [address] [facility] 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 Repair Supervisor Name Role Phone Jomarstellajason WOODARD Rafael Colvin Attending Clinician [phone] Encounters Start Date/Time End Date/Time Encounter Type Admission Type Attending Clinicians Care Facility Care Department Encounter ID Source 2023-06-30 13:51:15 2023-06-30 13:51:15 Outpatient [facility] [id number] Dani Salamanca 2023-05-26 17:25:40 2023-05-26 17:25:40 Outpatient [facility] [id number] Dani Salamanca 2023-02-23 09:27:08 2023-02-23 09:27:08 Outpatient [facility] [id number] Dani Salamanca 2023-02-20 10:16:33 2023-02-20 10:16:33 Outpatient [facility] SFA [id number] Dani Salamanca 2023-02-17 10:05:32 2023-02-17 10:05:32 Outpatient [facility] SFA [id number] Dani Salamanca 2022-12-08 09:36:02 2022-12-08 09:36:02 Outpatient [facility] SFA [id number] Dani Salamanca 2022-12-05 09:31:37 2022-12-05 09:31:37 Outpatient SFA SFA [id number] Dani Salamanca 2022-12-01 09:16:39 2022-12-01 09:16:39 Outpatient [facility] [id number] Dani Salamanca 2022-09-22 17:04:02 2022-09-22 17:04:02 Outpatient [facility] [id number] Dani Salamanca 2020-02-02 14:49:37 2020-02-02 19:17:00 Emergency [facility] [id number] Results Test Description Test Time Test Comments Results Result Co mments Source CULTURE, URINE 2023-07-03 12:20:12 SPECIMEN NUMBER: [id number] CULTURE, URINE SPECIMEN NUMBER: [id number] SPECIMEN COMMENT: URINE SOURCE: URINE REPORT STATUS: [...] TESTING PERFORMED AT [facility] [address] [place] [address] MECHANICAL DEVELOPMENT ENGINEER: MAKAYLA ABRAMS M.D. CLIA NUMBER [id number] [facility] [place]. [id number] CULTURE, URINE 2023-02-19 09:47:07 SPECIMEN NUMBER: [id number] CULTURE, URINE SPECIMEN NUMBER: [id number] SPECIMEN COMMENT: URINE SOURCE: URINE REPORT STATUS: FINAL FINAL REPORT: 02/19/2023 10-50,000 CFU/ML UROGENITAL LANI PRESENT NO COMMON PATHOGENS HEPATITIS PANEL, [id number] 04:21:09* Test Item Value Reference Range Interpretation [...] A. INTERPRETATION HEPATITIS B: (test code = 35277) (NOTE) Hepatitis B sero logy shows no evidence of past exposure to orcurrent infection with hepatitis B virus. No evidence of hepatitis Bimmunization is identified. INTERPRETATION HEPATITIS C: (test code = 48690) (NOTE) Hepatitis C sero logy shows no evidence of exposure to hepatitisC virus at this time. It can take up to 12 months after exposure tothe hepatitis C virus for antibodies to become detectable in the blood in certain patients. UNLESS OTHERWISE INDICATED, ALL TESTING PERFORMED AT [facility] [address] [place] [address] MECHANICAL DEVELOPMENT ENGINEER: MAKAYLA ABRAMS M.D. CLIA NUMBER [id number] [facility] [place]. [id number] COMPREHENSIVE METABOLIC [id number] 03:56:49* Test Item Value Reference Range Interpretation Comme [facility] GLUCOSE (test code = 2217) 101 MG/DL 70-99 H BUN (test code = 8) 10 MG/DL 6-20 CREATININE (test code = 2214) 0.80 MG/DL 0.60-1.30 eGFR (2020 CKD-EPI) (test code = 55387) 91 ML/MIN/1.73 >60 CALC BUN/CREAT (test code = 2235) 13 RATIO 6-28 SODIUM (test code = 2231) 138 MEQ/L 133-146 POTASSIUM (test code = 2228) 4.0 MEQ/L 3.5-5.4 CHLORIDE (test code = 2215) 109 MEQ/L 95-107 H CARBON DIOXIDE (test code = 2206) 17 MEQ/L 19-31 L CALCIUM (test code = 2209) 8.8 MG/DL 8.5-10.5 PROTEIN, TOTAL (test code = 2229) 7.3 G/DL 6.1-8.3 ALBUMIN (test code = 2201) 4.4 G/DL 3.5-5.2 CALC GLOBULIN (test code = 2240) 2.9 G/DL 1.9-3.7 CALC A/G RATIO (test code = 2234) 1.5 RATIO 1.0-2.6 BILIRUBIN, TOTAL (test code = 2207) <0.2 MG/DL See_Comment [Automated me ssage] The system which generated this result transmitted reference range: <=1.2. The reference range was not used to interpret this result as normal/abnormal. ALKALINE PHOSPHATASE (test code = 2203) 133 U/L 40-123 H AST (test code = 2218) 35 U/L 9-40 ALT (test code = 2219) 43 U/L 5-40 H LIPID [id number] 03:56:49* Test Item Value Reference Range Interpretation Comme nts CHOLESTEROL (test code = 2210) 156 MG/DL <200 TRIGLYCERIDES (test code = 2232) 142 MG/DL <150 HDL CHOLESTEROL (test code = 2220) 43 MG/DL >39 CALC LDL CHOL (test code = 2237) 89 MG/DL <100 NOTE: CALCULATED LDL IS BASED ON VIOLET-HENRY METHOD WHICHINCLUDES ADJUSTABLE TRIGLYCERIDE:VLDL CHOLESTEROL RATIO.THIS FACTOR VARIES BY MEASURED TRIGLYCERIDE AND NON-HDLCHOLESTEROL CONCENTRATIONS WITH INCREASED CALCULATED LDL SEENIN HIGHER TRIGLYCERIDE OR LOWER NON-HDL SPECIMENS. FOR MOREINFORMATION, SEE CLIENT ANNOUNCEMENT AT [email or web address] RATIO LDL/HDL (test code = 2238) 2.07 RATIO <3.22 CBC W/AUTO DIFF WITH [id number] 01:44:08* Test Item Value Reference Range Interpretation [...] = 1065) 0.0 /100 WBC'S See_Comment [Automated [employer] ge] The system which generated this result [...] 0.00-0.10 ABS NUCLEATED RBCS (test code = 12340) 0.00 K/UL 0.00-0.11 VAGINAL PATHOGENS DNA [id number] 13:08:06* Test Item Value Reference Range Interpretation Comme nts CATA SPECIES (test code = 89009) POSITIVE NEGATIVE A G. VAGINALIS (test code = ) NEGATIVE NEGATIVE T. VAGINALIS (test code = ) NEGATIVE NEGATIVE Note: The BD [facility] ir VPIII Microbial Identification Testis a DNA probe test intended for use in the detectionand identification of Cata species, Gardnerellavaginalis and Trichomonas vaginalis nucleic acid. [facility] has important pathology staff changes effective 09/14/2022. New pathology staff will provide uninterrupted, excellent patient care and clinical consultation. See URL: [email or web address]. UNLESS OTHERWISE INDICATED, ALL TESTING PERFORMED AT [facility] [address] [place] [address] MECHANICAL DEVELOPMENT ENGINEER: MAKAYLA ABRAMS M.D. CLIA NUMBER [id number] [place]. [id number] VAGINAL PATHOGENS DNA [id number] 15:54:23* Test Item Value Reference Range Interpretation Comme nts CATA SPECIES (test code = 40144) POSITIVE NEGATIVE A G. VAGINALIS (test code = 17361) POSITIVE NEGATIVE A T. VAGINALIS (test code = 31210) NEGATIVE NEGATIVE UNLESS OTHERWISE INDICATED, ALL TESTING PERFORMED [facility] [address] [place] [address] MECHANICAL DEVELOPMENT ENGINEER: THEO MEDINA M.D. CLIA NUMBER [id number] [place] [id number] SCR MAMM BILATERAL NATHAN CAD [id number] 08:04:31 Name: Yissel : 1975 Sex: F - SCR MAMM BILATERAL NATHAN CAD DIGITALBILATERAL DIGITAL SCREENING MAMMOGRAM 3D/2D WITH CAD: 2CLINICAL: Asymptomatic. Digital breast tomosynthesis was performed in addition to routine CC and MLO views. Current mammographic images were evaluated by [employer] CAD (computer-aided detection) software. No prior exams [...] Ultrasound with possible additional viewsare recommended. Sarah hopper/:04/15/2022 08:04:31 Internal Affairs Commander: Shireen Graham MM, [facility] MammographyMammogram BI-RADS: 0 Incomplete: Additional Imaging Evaluation NeededCT/NG, NAAT, [id number] 21:50:47* Test Item Value Reference Range Interpretation Comme nts GONORRHEA, NAAT (test code = 05172) NEGATIVE NEGATIVE IMPORTANT NO COLBY: SEE ANNOUNCEMENT AT [email or web address] Note: Assay methodology is nucleic acid amplification by manager managing mediated amplification (TMA) utilizing the Aptima Combo 2 Assay. CHLAMYDIA, NAAT (test code = 79223) NEGATIVE NEGATIVE IMPORTANT NO COLBY: SEE ANNOUNCEMENT AT [email or web address] Note: Assay methodology is nucleic acid amplification by manager managing mediated amplification (TMA) utilizing the Aptima Combo 2 Assay. HIV 1/2 4TH GEN, RFLX [id number] 04:59:08* Test Item Value Reference Range Interpretation Comme nts HIV 1/2 4TH GEN, RFLX CONF ( test code = 3514) NON-REACTIVE NON-REACTIVE HEPATITIS PANEL, [id number] 04:59:08* Test Item Value Reference Range Interpretation Comme nts HEPATITIS A IgM (test code = 91546) NON-REACTIVE NON-REACTIVE HEPATITIS B CORE IgM (test code = 4644) NON-REACTIVE NON-REACTIVE HEPATITIS B SURF AG (test code = 2739) NON-REACTIVE NON-REACTIVE HEPATITIS C ANTIBODY (test code = 4675) NON-REACTIVE NON-REACTIVE INTERPRETATION HEPATITIS A: (test code = 2552) (NOTE) Hepatitis A serology shows no evidence of acute hepatitis A. INTERPRETATION HEPATITIS B: (test code = 64222) (NOTE) Hepatitis B serology shows no evidence of acute hepatitis B andno indication of exposure to hepatitis B virus in the previous ce eight months. INTERPRETATION HEPATITIS C: (test code = 91894) (NOTE) Hepatitis C serology shows no evidence of exposure to hepatitisC virus at this time. It can take up to 12 months after exposure tothe hepatitis C virus for antibodies to become detectable in the blood in certain patients. [id number] 04:17:56* Test Item Value Reference Range Interpretation Comme nts RPR RESULT (test code = 3501) NON-REACTIVE NON-REACTIVE RPR TITER (test code = 3500) NOT INDIC. TITER NOT INDIC. UNLESS OTHERWISE INDICATED, [facility] [address] [place] [address] MECHANICAL DEVELOPMENT ENGINEER: THEO MEDINA M.D. CLIA NUMBER [id number] [facility] [place] [place]. [id number]
[2023-07-23 09:18] LABS: Absolute Lymphocytes (CBC) 1.9 K/uL (0.7-4.9); Hematocrit 34.4 % (36.0-45.0); Lymphocytes % 22.4 % (15.3-44.8); MCV 78.2 fL (80-100); MPV 7.2 fL (7.6-11.3); Platelets 372 thou/uL (152-406)
[2023-07-23 09:22] LABS: Urine Bacteria >50 /HPF (<20); Urine Bilirubin NEGATIVE (Negative); Urine Blood Trace (Negative); Urine Clarity Extremely Turbid (Clear); Urine Color Light-Yellow (Yellow); Urine Glucose NEGATIVE (Negative); Urine Mucus 1+ /HPF (None Seen); Urine Protein NEGATIVE (Negative); Urine Urobilinogen Normal (Normal)
[2023-07-23 09:34] LABS: Albumin 3.1 g/dL (3.4-5.0); Bilirubin Total 0.1 mg/dL (0.2-1.0); Potassium 3.5 mEq/L (3.5-5.1); Protein, Total 7.3 g/dL (6.4-8.2)
--- NOTE | 2023-07-23 09:43 | RAD REPORT ---
EXAM DESCRIPTION: CT - Abdomen Pelvis Wo Contrast - 07/23/2023 9:23 am CLINICAL HISTORY: ABD PAIN COMPARISON: Abdomen Pelvis W Contrast dated 07/07/2023; Abdomen Pelvis Wo Contrast dated 023; Abdomen Pelvis Wo Contrast dated 02/11/2023; Stone Protocol dated 04/05/2022 TECHNIQUE: Thin cut axial CT imaging of the abdomen and pelvis was performed without IV contrast. Mu ltiplanar reformats were generated and reviewed. All CT scans are performed using dose optimization technique as appropriate and may include automated exposure control or mA/KV adjustment according to patient size. FINDINGS: No suspicious findings in the lung bases. The liver, spleen, adrenal glands, and pancreas show no suspicious findings. Status post cholecystectomy. Status post right nephrectomy. Nonobstructing left renal calculi, largest at the left lower pole leigh uring 6 mm. No left renal Suspicious parenchymal findings within limits of noncontrast technique. No evidence of or hydroureteronephrosis. No dilated bowel loops or bowel wall thickening. No free air, free fluid or inflammatory stranding. N o hernia, mass or bulky lymphadenopathy. Few small hypoattenuating uterine fibroids. The urinary blad karen is without significant finding. No suspicious bony findings. IMPRESSION: Nonobstructing left renal calculi, largest measuring 6 mm. Status post right nephrectomy and cholecystectomy. Incidental findings as above.
--- NOTE | 2023-07-23 10:26 | ER ---
Nurse's Notes [facility] Name: Yissel Carmona Age: 47 yrs Sex: Female : 1975 Arrival Date: 07/23/2023 Time: 08:35 Bed 14 Private MD: Diagnosis: Lower abdominal pain, unspecified Presentation: 07/23 08:48 Chief complaint: Left flank pain and N/V x 3 days. Seen in ED for kidney stones 2 weeks hb ago, still taking Flomax. Coronavirus screen: At this time, the client does not indicate any symptoms associated with coronavirus-19. Ebola Screen: No symptoms or risks identified at this time. Initial Sepsis Screen: Does the patient meet any 2 criteria? No. Patient's initial sepsis screen is negative. Does the patient have a suspected source of infection? No. Patient's initial sepsis screen is negative. Risk Assessment: Do you want to hurt yourself or someone else? Patient reports no desire to harm self or others. Onset of symptoms was July 21, 2023. 08:48 Method Of Arrival: Ambulatory hb 08:48 Acuity: NEVAEH 3 hb Historical: - Allergies: 08:49 Cipro; hb 08:49 Reglan; hb 08:49 Rocephin; hb 08:49 Stadol; hb 08:49 tequin; hb 08:49 Toradol; hb 08:49 tramadol; hb 08:49 Zofran; hb - PMHx: 08:49 Migraines; one kidney; hb - PSHx: 08:49 Cholecystectomy; Right Kidney Removed; hb - Immunization history:: Client reports receiving the 2nd dose of the Covid vaccine, Flu vaccine is up to date. - Social history:: Smoking status: Patient/guardian denies using tobacco. Screenin:50 [facility] ED Fall Risk Assessment (Adult) Score/Fall Risk Level 0 - 2 = Low Risk hb Oriented to surroundings, Maintained a safe environment. Abuse screen: Denies threats or abuse. Denies injuries from another. Nutritional screening: No deficits noted. Tuberculosis screening: No symptoms or risk factors identified. Assessment: 08:50 General: Appears in no apparent distress. uncomfortable, Behavior is calm, cooperative. hb Pain: Pain currently is 10 out of 10 on a pain scale. Neuro: Level of Consciousness is awake, alert, obeys commands, Oriented to person, place, time, situation. Cardiovascular: Patient's skin is warm and dry. Respiratory: Respiratory effort is even, unlabored, Respiratory pattern is regular, symmetrical. GI: Reports nausea, vomiting. : Reports pain flank(s). EENT: No signs and/or symptoms were reported regarding the EENT system. Derm: Skin is pink, warm \T\ dry. Musculoskeletal: No signs and/or symptoms reported regarding the musculoskeletal system. Vital Signs: 08:48 BP 138 / 90; Pulse 116; Resp 18; Temp 98(O); Pulse Ox 100% on R/A; Weight 89.81 kg; hb Height 5 ft. 2 in. ; Pain 10/10; 08:48 Body Mass Index 36.21 (89.81 kg, 157.48 cm) hb 08:48 Pain Scale: Adult hb ED Course: 08:39 Patient arrived in ED. im 08:40 Domingo Hyde MD is Attending Physician. ec2 08:49 Triage completed. hb 08:50 Arm band placed on. hb 08:50 Patient has correct armband on for positive identification. Provided Education on: hb tests, result times. 09:12 Shelley Bain, RN is Primary Nurse. ph 09:12 Initial lab(s) drawn, by ks, sent to lab. Inserted saline lock: 22 gauge in left ph antecubital area, using aseptic technique. Blood collected. 09:24 CT Abd/Pelvis - Without Contrast In Process Unspecified. EDMS Administered Medications: 09:12 Drug: NS 0.9% IV 1000 ml IV at 1 bolus Per protocol; 1000 mL bolus Route: IV; Rate: 1 ph bolus; Site: left antecubital; 09:12 Drug: morphine IVP or IV 4 mg IVP once over 4 mins Route: IVP; Infused Over: 4 mins; ph Site: left antecubital; Medication: 08:50 VIS not applicable for this client. hb Outcome: 10:26 Discharge ordered by . ec2 10:52 Patient left the ED. ph Signatures: Dispatcher [employer] EDMS Shelley Bain RN RN Latrice Villalobos RN RN Marcy Gray im Domingo Hyde MD MD ec2
--- NOTE | 2023-07-23 10:26 | EDPHYS ---
Physician Documentation [facility] Name: Yissel Carmona Age: 47 yrs Sex: Female : 1975 Arrival Date: 07/23/2023 Time: 08:35 Bed 14 Private MD: ED Physician Domingo Hyde HPI: 07/23 08:53 This 47 yrs old Female presents to ER via Ambulatory with complaints of ec2 Possible Kidney Stone, Nausea/Vomiting, Flank Pain, Low Back Pain. 08:53 Patient arrives today for evaluation of left-sided flank and abdominal pain. Patient ec2 reports history of left-sided kidney stone, reports she was diagnosed with a recent kidney stone 2 weeks ago, states her symptoms got better and has since returned. Patient reports associated nausea and a bout of vomiting yesterday. Patient reports no blood in the urine, denies any urinary complaints. Denies any other concerns. Does report a history of previous right-sided kidney disease.. Historical: - Allergies: 08:49 Cipro; hb 08:49 Reglan; hb 08:49 Rocephin; hb 08:49 Stadol; hb 08:49 tequin; hb 08:49 Toradol; hb 08:49 tramadol; hb 08:49 Zofran; hb - PMHx: 08:49 Migraines; one kidney; hb - PSHx: 08:49 Cholecystectomy; Right Kidney Removed; hb - Immunization history:: Client reports receiving the 2nd dose of the Covid vaccine, Flu vaccine is up to date. - Social history:: Smoking status: Patient/guardian denies using tobacco. ROS: 08:54 Constitutional: as per hpi ec2 Exam: 08:54 Constitutional: GEN: NAD Head: atraumatic Eyes: EOMI Ears: External ears are ec2 normal. CV: Tachycardia. LUNGS: no respiratory distress ABD: non-distended, obese, left flank TTP, left lower quadrant abdominal TTP. SKIN: no evidence of rashes MSK: no evidence of trauma NEURO: moves all extremities equally Vital Signs: 08:48 BP 138 / 90; Pulse 116; Resp 18; Temp 98(O); Pulse Ox 100% on R/A; Weight 89.81 kg; hb Height 5 ft. 2 in. ; Pain 10/10; 08:48 Body Mass Index 36.21 (89.81 kg, 157.48 cm) hb 08:48 Pain Scale: Adult hb MDM: 08:45 Patient medically screened. ec2 08:55 ED course: Patient arrives today for evaluation of left flank pain and left lower ec2 quadrant abdominal pain. Examination remarkable for well-appearing nontoxic individual is otherwise in no acute distress with a tender abdomen and slight tachycardia noted. Will obtain lab work, urine studies, treat the patient's pain with morphine and reassess the patient. Currently considering pyelonephritis, UTI, ureteral stone.. 09:31 Data reviewed: vital signs. ED course: CBC is reassuring, urine is noninfectious ec2 appearing. . 09:45 ED course: CT scan shows nonobstructing left-sided renal calculi at 6 mm. Looking at ec2 previous records, patient had a recent CT scan on 07/07 which showed a 6 mm left nonobstructing renal stone. This is unchanged from this. . 10:26 ED course: On reassessment patient remains well-appearing in no acute distress. Will ec2 discharge home. Return precautions given. I instructed her to follow-up with urology as well as GI for further workup and testing for her abdominal pain. No emergent process identified today.. 07/23 08:53 Order name: CBC with Diff; Complete Time: 09:30 ec2 07/23 08:53 Order name: CMP; Complete Time: 09:37 ec2 07/23 08:53 Order name: Urinalysis w/ reflexes; Complete Time: 09:30 ec2 07/23 08:53 Order name: CT Abd/Pelvis - Without Contrast; Complete Time: 09:44 ec2 07/23 08:53 Order name: IV Saline Lock; Complete Time: 09:12 ec2 07/23 08:53 Order name: Labs collected and sent; Complete Time: 09:12 ec2 Administered Medications: 09:12 Drug: NS 0.9% IV 1000 ml IV at 1 bolus Per protocol; 1000 mL bolus Route: IV; Rate: 1 ph bolus; Site: left antecubital; 09:12 Drug: morphine IVP or IV 4 mg IVP once over 4 mins Route: IVP; Infused Over: 4 mins; ph Site: left antecubital; Disposition Summary: 07/23/23 10:26 Discharge Ordered Notes: Location: Home ec2 Condition: Stable ec2 Diagnosis - Lower abdominal pain, unspecified ec2 Followup: ec2 - With: Private Physician - When: - Reason: Recheck today's complaints Discharge Instructions: - Discharge Summary Sheet ec2 - Abdominal Pain, Adult ec2 Forms: - Medication Reconciliation Form ec2 - Thank You Letter ec2 - Antibiotic Education ec2 - Prescription Opioid Use ec2 - Patient Portal Instructions ec2 - Leadership Thank You Letter ec2 Signatures: Dispatcher [employer] Shelley Gonzalez RN RN Latrice Villalobos RN RN Domingo Hyde MD MD ec2 Corrections: (The following items were deleted from the chart) 08:54 08:53 Patient arrives today for evaluation of left-sided flank and abdominal pain. ec2 Patient reports history of. ec2 08:59 08:53 Abdomen Pelvis W Con+CT.RAD.BRZ ordered. [facility]
[2023-07-23 11:21] VITALS: BP 138/90; TEMP 98; O2SAT 100
== END ==
LOC: ER 08:35
DX: R10.32 Left lower quadrant pain (principal); Z87.442 Personal history of urinary calculi
CPT/HCPCS: 36415; 74176; 80053; 81001; 85025; 96374; 99284; J7030; Q0169

== ENCOUNTER → 2023-10-06 | Emergency (ER) | payer SELFPAY ==
[~2023-10-06] MED LIST changes: +NA CHLORIDE 0.9% 100 ML ONE; +PIPERACIL/TAZO 3.375 GM VIAL IV ONE; -PROMETHAZINE 25 MG TABLET ONE; +PROMETHAZINE INJ 25 MG/ML AMP ONE
--- OUTSIDE RECORDS SUMMARY | 2023-10-06 10:30 | XMS REPORT | Continuity of Care Document ---
Author Name Unknown Address [address] [facility] [address] [place] [address] [facility] thconnect Address [address] [facility] [address] [place] [address] Care Team Providers Care Human Capital Consultant Name Role Phone VERONICA ADORNO Primary Care Physician UnavailSUPRIYA Naylor Attending Clinician UnavailSupriya Naylor DO Attending Clinician [phone] Doctor Unassigned, [place] Attending Clinician U DEBBIE Burnham Attending Clinician Debbie Muro MD Attending Clinician [phone] MARCIO AUGUSTINE Attending Clinician Unavailable Marcio Augustine DO Attending Clinician [phone] Gagandeep Izaguirre Attending Clinician [phone] Gagandeep RUTHERFORD Attending Clinician Unavailable Rafael Syed Attending Clinician [phone] DEBBIE BOYCE Admitting Clinician MARCIO Moya Admitting Clinician Unavailable Payers Payer Name Policy Type Policy Number Effective Date Expirati on Date Source [facility] MEDICAID [id number] 2018 00:00:00 Problems Condition Name Condition Details Condition Category Status Onset Date Resolution Date Last Treatment Date Treating Clinician Comments Source Acute cystitis without hematuria Acute cystitis without hematuria Disease Active 2021-07 00:00: 00 [facility] Strain of lumbar region, initial encounter Strain of lumbar region, initial encounter Disease Active 2021-07 2-30 00:00: 00 [facility] Dysuria Dysuria Disease Active 2021-07 2-30 00:00: 00 [facility] Urinary frequency Urinary frequency Disease Active 2021-07 2- 00:00: 00 [facility] Kidney stone Kidney stone Disease Active 2021-07 2 00:00: 00 [facility] Acute intractabl e tension-ty pe headache Acute intractabl e tension-ty pe headache Disease Active 2021-07 2 00:00: 00 [facility] No known active problems No known active problems Disease [facility] Allergies, Adverse Reactions, Alerts Allergy Name Allergy Type Status Severity Reaction(s) Onset Date Inactive Date Treating Clinician Comments Source METOCLOP RAMIDE DRUG INGREDI Active Hives 2021-07 0-16 00:00: 00 [facility] GATIFLOX ACIN DRUG INGREDI Active Unknown-Cmnt 2021-07 0-16 00:00: 00 [facility] CEFTRIAX ONE DRUG INGREDI Active Rash 2021-07 0-16 00:00: 00 [facility] Metoclop ramide Propensi ty to adverse reaction s Active Hives 2021-07 0-16 00:00: 00 [facility] Ceftriax one Propensi ty to adverse reaction s Active Rash 2021-07 0-16 00:00: 00 [facility] Gatiflox acin Propensi ty to adverse reaction s Active Unknown - See comments 2021-07 0-16 00:00: 00 [facility] Tramadol Propensi ty to adverse reaction s Active Rash 2020-0 7-19 00:00: 00 [facility] Ondanset yrn (Pf) In Dextrose Propensi ty to adverse reaction s Active Rash 2020-0 7-19 00:00: 00 [facility] Ciproflo xacin Propensi ty to adverse reaction s Active Hives 2020-0 7-19 00:00: 00 [facility] Butorpha nol Tartrate Propensi ty to adverse reaction s Active Hives 2020-0 7-19 00:00: 00 [facility] Ketorola c Trometha mine Propensi ty to adverse reaction s Active Rash 2020-0 7-19 00:00: 00 [facility] CIPROFLO XACIN DRUG INGREDI Active Hives 2020-0 7-19 00:00: 00 [facility] BUTORPHA NOL TARTRATE DRUG INGREDI Active Hives 2020-0 7-19 00:00: 00 [facility] KETOROLA C TROMETHA MINE DRUG INGREDI Active Rash 2020-0 7-19 00:00: 00 [facility] TRAMADOL DRUG INGREDI Active Rash 2020-0 7-19 00:00: 00 [facility] ONDANSET YRN (PF) IN DEXTROSE DRUG Active Rash 2019-0 - 00:00: 00 [facility] Social History Social Habit Start Date Stop Date Quantity Comments Source Gender identity [facility] Sexual orientation U [facility] Exposure to SARS-CoV-2 (event) 2022-08-21 00:00:00 2022-08-31 10:48:00 Not sure [facility] Sex Assigned At 1975 00:00:00 1975 00:00:00 [facility] Smoking Status Start Date Stop Date Source Tobacco smoking consumption unknown [facility] Medications Ordered Medication Name Filled Medication Name Start Date Stop Date Current Medication? Ordering Clinician Indication Dosage Frequency Signature (SIG) Comments Components Source dicyclomine (BENTYL) tablet 20 mg 2022-07 00:00: 00 07-14 00:02 :00 No 20mg 20 mg, Oral, ONCE, 1 dose, On Mary Anne 07/13/23 at 1800, [facility] proCHLORper azine (COMPAZINE) 10 mg in NaCl 0.9% (NS) piggyback 2022-07 23:45: 00 07-14 00:16 :00 No 10mg 10 mg, IV Piggyback, at 100 mL/hr Administer over 30 Minutes, ONCE, 1 dose, On Mary Anne 07/13/23 at 1745, Routine [facility] NaCl 0.9% (NS) bolus infusion 1,000 mL 2022-07 23:45: 00 07-14 00:30 :00 No 1000mL at 999 mL/hr, 1,000 mL, IV Infusion, ONCE, 1 dose, [facility] famot[facility] ([facility]PCID (PF[facility] injection 20 mg 2022-07 23:00: 00 07-13 23:38 :00 No 20mg 20 mg, Slow IV Push, ONCE, 1 dose, On Mon07/13/23 at 1700, [facility] dicyclomine 20 mg tablet 2022-07 00:00: 00 Yes [id number] 20mg Take 1 tablet by mouth every 6 (six) hours as needed for Abdominal pain. [facility] morpHINE (4 mg/mL) injection 4 mg 2021-07 20:45: 00 07-15 21:06 :00 No 4mg 4 mg, Slow IV Push, ONCE, 1 dose, On Mon07/15/22 at 1445, STAT [facility] iopamidol (ISOVUE 370-500 mL) injection 84 mL 2021-07 20:45: 00 07-15 19:46 :00 No [id number] 84mL 84 mL, Intravenou s, ONCE, 1 dose, On Mon07/15/22 at 1445, Routine [facility] butalbital- acetaminoph en-caff (ESGIC) 50-325-40 mg tablet 1 tablet 2021-07 19:15: 00 07-15 19:30 :00 No 1{tbl} 1 tablet, Oral, ONCE NOW, 1 dose, On Mon07/15/22 at 1315, Routine [facility] diphenhydrA MINE (BENADRYL) injection 25 mg 2021-07 18:30: 00 07-15 19:31 :00 No 25mg 25 mg, Slow IV Push, ONCE, 1 dose, On Mon07/15/22 at 1230, STAT [facility] proMETHazin e (PHENERGAN) 12.5 mg in NaCl 0.9% (NS) 50 mL IV piggyback 2021-07 18:30: 00 07-15 19:34 :00 No 12.5mg 12.5 mg, IV Piggyback, ONCE, 1 dose, On Mon07/15/22 at 1230, [facility] NaCl 0.9% (NS) bolus infusion 1,000 mL 2021-07 18:30: 00 07-15 22:03 :00 No 1000mL at 999 mL/hr, 1,000 mL, IV Infusion, ONCE, 1 dose, On Mon07/15/22 at 1230, STAT [facility] proMETHazin e 25 mg tablet 2021-07 00:00: 00 Yes [id number] 25mg Take 1 tablet by mouth every 6 (six) hours as needed for Nausea and Vomiting (N/V) for up to 10 doses. [facility] proMETHazin e 25 mg tablet 2021-07 00:00: 00 Yes [id number] 25mg Take 1 tablet by mouth every 6 (six) hours as needed for Nausea and Vomiting (N/V) for up to 10 doses. [facility] proMETHazin e 25 mg tablet 2021-07 00:00: 00 Yes [id number] 25mg Take 1 tablet by mouth every 6 (six) hours as needed for Nausea and Vomiting (N/V) for up to 10 doses. [facility] proMETHazin e 25 mg tablet 2021-07 00:00: 00 07-13 00:00 :00 No [id number] 25mg Take 1 tablet by mouth every 6 (six) hours as needed for Nausea and Vomiting (N/V) for up to 10 doses. [facility] Nitrofurant oin&Nit. Macrocryst (MACROBID) 100 mg capsule 2021-07 00:00: 00 07-23 05:59 :00 No [id number] 100mg Take 1 capsule by mouth in the morning and 1 capsule in the evening. Do all this for 7 days. [facility] cyclobenzap rine 5 mg tablet 2022-1 2-30 00:00: 00 07-21 05:59 :00 No [id number] 10mg Take 2 tablets by mouth 3 (three) times daily as needed for Muscle Spasms for up to 5 days. [facility] oxybutynin chloride (DITROPAN) tablet 5 mg 2021-07 01:00: 00 Yes 5mg 5 mg, Oral, BID, First dose on Mon05/01/22 at 2000, Until Discontinu ed, Routine [facility] ketorolac (TORADOL) injection 15 mg 2021-07 23:00: 00 05-02 22:59 :00 No 15mg 15 mg, Slow IV Push, Q6H, 4 doses, First dose on Mon05/01/22 at 1800, Last dose on Mon05/02/22 at 1200, Routine [facility] HYDROcodone -acetaminop hen (NORCO) 10-325 mg tablet 1 tablet 2021-07 19:30: 00 05-01 18:30 :00 No 1{tbl} 1 tablet, Oral, ONCE, 1 dose, On Mon05/01/22 at 1430, Routine [facility] proMETHazin e (PHENERGAN) 12.5 mg in NaCl 0.9% (NS) 50 mL IV piggyback 2021-07 18:30: 00 05-01 18:29 :00 No 12.5mg 12.5 mg, IV Piggyback, ONCE, 1 dose, On Mon05/01/22 at 1330, [facility] sulfamethox azole-trime thoprim 800-160 mg per tablet 2021-07 00:00: 00 Yes [id number] 1{tbl} Take 1 tablet by mouth every 12 (twelve) hours. [facility] proMETHazin e 25 mg tablet 2021-07 00:00: 00 Yes [id number] 25mg Take 1 tablet by mouth every 6 (six) hours as needed for Nausea and Vomiting (N/V). [facility] oxybutynin XL 5 mg 24 hr tablet 2022-1 0-16 00:00: 00 Yes [id number] 5mg Take 1 tablet by mouth in the morning. [facility] phenazopyri dine 200 mg tablet 2021-07 0-16 00:00: 00 Yes [id number] 200mg Take 1 tablet by mouth in the morning and 1 tablet at noon and 1 tablet in the evening. [facility] sulfamethox azole-trime thoprim 800-160 mg per tablet 2021-07 0-16 00:00: 00 Yes [id number] 1{tbl} Take 1 tablet by mouth every 12 (twelve) hours. [facility] proMETHazin e 25 mg tablet 2021-07 0-16 00:00: 00 Yes [id number] 25mg Take 1 tablet by mouth every 6 (six) hours as needed for Nausea and Vomiting (N/V). [facility] oxybutynin XL 5 mg 24 hr tablet 2021-07 0-16 00:00: 00 Yes [id number] 5mg Take 1 tablet by mouth in the morning. [facility] phenazopyri dine 200 mg tablet 2021-07 016 00:00: 00 Yes [id number] 200mg Take 1 tablet by mouth in the morning and 1 tablet at noon and 1 tablet in the evening. [facility] sulfamethox azole-trime thoprim 800-160 mg per tablet 2021-07 016 00:00: 00 Yes [id number] 1{tbl} Take 1 tablet by mouth every 12 (twelve) hours. [facility] proMETHazin e 25 mg tablet 2021-07 0-16 00:00: 00 Yes [id number] 25mg Take 1 tablet by mouth every 6 (six) hours as needed for Nausea and Vomiting (N/V). [facility] oxybutynin XL 5 mg 24 hr tablet 2021-07 0-16 00:00: 00 Yes [id number] 5mg Take 1 tablet by mouth in the morning. [facility] phenazopyri dine 200 mg tablet 2021-07 0-16 00:00: 00 Yes [id number] 200mg Take 1 tablet by mouth in the morning and 1 tablet at noon and 1 tablet in the evening. [facility] sulfamethox azole-trime thoprim 800-160 mg per tablet 2021-07 0-16 00:00: 00 Yes [id number] 1{tbl} Take 1 tablet by mouth every 12 (twelve) hours. [facility] proMETHazin e 25 mg tablet 2021-07 0-16 00:00: 00 Yes [id number] 25mg Take 1 tablet by mouth every 6 (six) hours as needed for Nausea and Vomiting (N/V). [facility] oxybutynin XL 5 mg 24 hr tablet 2021-07 016 00:00: 00 Yes [id number] 5mg Take 1 tablet by mouth in the morning. [facility] phenazopyri dine 200 mg tablet 2021-07 0 00:00: 00 Yes [id number] 200mg Take 1 tablet by mouth in the morning and 1 tablet at noon and 1 tablet in the evening. [facility] sulfamethox azole-trime thoprim 800-160 mg per tablet 2021-07 00:00: 00 07-13 00:00 :00 No [id number] 1{tbl} Take 1 tablet by mouth every 12 (twelve) hours. [facility] proMETHazin e 25 mg tablet 2021-07 016 00:00: 00 07-13 00:00 :00 No [id number] 25mg Take 1 tablet by mouth every 6 (six) hours as needed for Nausea and Vomiting (N/V). [facility] oxybutynin XL 5 mg 24 hr tablet 2021-07 0-16 00:00: 00 07-13 00:00 :00 No [id number] 5mg Take 1 tablet by mouth in the morning. [facility] phenazopyri dine 200 mg tablet 2021-07 0-16 00:00: 00 07-13 00:00 :00 No [id number] 200mg Take 1 tablet by mouth in the morning and 1 tablet at noon and 1 tablet in the evening. [facility] proMETHazin e (PHENERGAN) tablet 25 mg 2021-0 6-21 20:30: 00 01-04 19:35 :00 No 25mg 25 mg, Oral, ONCE, 1 dose, 01/04/21 at 1530, [facility] cephALEXin (KEFLEX) capsule 500 mg 01-04 20:30: 00 01-04 19:35 :00 No 500mg 500 mg, Oral, ONCE, 1 dose, 01/04/21 at 1530, [facility]
Re ason for Anti-Infec tive: Documented Infection< br>Documen tomasa Infection Site: Urine
D uration of Therapy: 10 days [facility] NaCl 0.9% (NS) bolus infusion 1,000 mL 01-04 19:15: 00 01-04 19:35 :00 No 1000mL at 999 mL/hr, 1,000 mL, IV Infusion, ONCE, 1 dose, 01/04/21 at 1415, STAT [facility] proMETHazin e 25 mg tablet 01-04 00:00: 00 Yes [id number] 25mg Take 1 tablet by mouth every 6 (six) hours as needed for Nausea and Vomiting (N/V). [facility] proMETHazin e 25 mg tablet 01-04 00:00: 00 05-01 00:00 :00 No [id number] 25mg Take 1 tablet by mouth every 6 (six) hours as needed for Nausea and Vomiting (N/V). [facility] cephALEXin (KEFLEX) 500 mg capsule 01-04 00:00: 00 01-15 04:59 :00 No [id number] 500mg Take 1 capsule by mouth 3 (three) times daily for 10 days. [facility] proMETHazin e (PHENERGAN) 12.5 mg in NaCl 0.9% (NS) 50 mL piggyback 02-02 00:45: 00 02-01 23:54 :00 No 12.5mg 12.5 mg, IV Piggyback, ONCE, 1 dose, [place] 02/02/20 at 1945, 50 mL [facility] NaCl 0.9% (NS) bolus infusion 1,000 mL 02-01 22:30: 00 02-01 23:48 :00 No 1000mL at 999 mL/hr, 1,000 mL, IV Infusion, ONCE, 1 dose, 02/02/20 at 1730, STAT [facility] azithromyci n 250 mg tablet 02-01 00:00: 00 Yes [id number] 250mg Take 1 tablet by mouth daily. Take 500 mg day 1, then 250 mg days 2 to 5. [facility] benzonatate 100 mg capsule 02-01 00:00: 00 Yes [id number] 100mg Take 1 capsule by mouth 3 (three) times daily as needed for Cough. [facility] azithromyci n 250 mg tablet 02-01 00:00: 00 Yes [id number] 250mg Take 1 tablet by mouth daily. Take 500 mg day 1, then 250 mg days 2 to 5. [facility] azithromyci n 250 mg tablet 02-01 00:00: 00 Yes [id number] 250mg Take 1 tablet by mouth daily. Take 500 mg day 1, then 250 mg days 2 to 5. [facility] benzonatate 100 mg capsule 02-01 00:00: 00 Yes [id number] 100mg Take 1 capsule by mouth 3 (three) times daily as needed for Cough. [facility] benzonatate 100 mg capsule 02-01 00:00: 00 Yes [id number] 100mg Take 1 capsule by mouth 3 (three) times daily as needed for Cough. [facility] proMETHazin e 25 mg tablet 02-01 00:00: 00 Yes [id number] 25mg Take 1 tablet by mouth every 4 (four) hours as needed for Nausea and Vomiting (N/V). [facility] azithromyci n 250 mg tablet 02-01 00:00: 00 Yes [id number] 250mg Take 1 tablet by mouth daily. Take 500 mg day 1, then 250 mg days 2 to 5. [facility] benzonatate 100 mg capsule 02-01 00:00: 00 Yes [id number] 100mg Take 1 capsule by mouth 3 (three) times daily as needed for Cough. [facility] azithromyci n 250 mg tablet 02-01 00:00: 00 Yes [id number] 250mg Take 1 tablet by mouth daily. Take 500 mg day 1, then 250 mg days 2 to 5. [facility] benzonatate 100 mg capsule 02-01 00:00: 00 Yes [id number] 100mg Take 1 capsule by mouth 3 (three) times daily as needed for Cough. [facility] azithromyci n 250 mg tablet 02-01 00:00: 00 Yes [id number] 250mg Take 1 tablet by mouth daily. Take 500 mg day 1, then 250 mg days 2 to 5. [facility] benzonatate 100 mg capsule 02-01 00:00: 00 Yes [id number] 100mg Take 1 capsule by mouth 3 (three) times daily as needed for Cough. [facility] azithromyci n 250 mg tablet 02-01 00:00: 00 Yes [id number] 250mg Take 1 tablet by mouth daily. Take 500 mg day 1, then 250 mg days 2 to 5. [facility] benzonatate 100 mg capsule 02-01 00:00: 00 Yes [id number] 100mg Take 1 capsule by mouth 3 (three) times daily as needed for Cough. [facility] proMETHazin e 25 mg tablet 02-01 00:00: 00 Yes [id number] 25mg Take 1 tablet by mouth every 4 (four) hours as needed for Nausea and Vomiting (N/V). [facility] azithromyci n 250 mg tablet 02-01 00:00: 00 Yes [id number] 250mg Take 1 tablet by mouth daily. Take 500 mg day 1, then 250 mg days 2 to 5. [facility] benzonatate 100 mg capsule 02-01 00:00: 00 Yes [id number] 100mg Take 1 capsule by mouth 3 (three) times daily as needed for Cough. [facility] azithromyci n 250 mg tablet 02-01 00:00: 00 07-13 00:00 :00 No [id number] 250mg Take 1 tablet by mouth daily. Take 500 mg day 1, then 250 mg days 2 to 5. [facility] benzonatate 100 mg capsule 02-01 00:00: 00 07-13 00:00 :00 No [id number] 100mg Take 1 capsule by mouth 3 (three) times daily as needed for Cough. [facility] proMETHazin e 25 mg tablet 02-01 00:00: 00 01-04 00:00 :00 No [id number] 25mg Take 1 tablet by mouth every 4 (four) hours as needed for Nausea and Vomiting (N/V). [facility] Immunizations Ordered Immunization Name Filled Immunization Name Date Status Comments Source SARS-COV-2 COVID-19 PFIZER VACCINE 2020-12-05 00:00:00 Completed [facility] SARS-COV-2 COVID-19 PFIZER VACCINE 2020-12-05 00:00:00 Completed [facility] SARS-COV-2 COVID-19 PFIZER VACCINE 2020-12-05 00:00:00 Completed [facility] SARS-COV-2 COVID-19 PFIZER VACCINE 2020-12-05 00:00:00 Completed [facility] SARS-COV-2 COVID-19 PFIZER VACCINE 2020-12-05 00:00:00 Completed [facility] SARS-COV-2 COVID-19 PFIZER VACCINE 2020-12-05 00:00:00 Completed [facility] SARS-COV-2 COVID-19 PFIZER VACCINE 2020-11-07 00:00:00 Completed [facility] SARS-COV-2 COVID-19 PFIZER VACCINE 2020-11-07 00:00:00 Completed [facility] SARS-COV-2 COVID-19 PFIZER VACCINE 2020-11-07 00:00:00 Completed [facility] SARS-COV-2 COVID-19 PFIZER VACCINE 2020-11-07 00:00:00 Completed [facility] SARS-COV-2 COVID-19 PFIZER VACCINE 2020-11-07 00:00:00 Completed [facility] SARS-COV-2 COVID-19 PFIZER VACCINE 2020-11-07 00:00:00 Completed [facility] SARS-COV-2 COVID-19 PFIZER VACCINE Unknown Completed [facility] SARS-COV-2 COVID-19 PFIZER VACCINE Unknown Completed [facility] Vital Signs Vital Name Observation Time Observation Value Comments S ource Systolic blood pressure 2023-07-14 00:30:00 115 mm[Hg] [facility] Diastolic blood pressure 2023-07-14 00:30:00 78 mm[Hg] [facility] Heart rate 2023-07-14 00:30:00 87 /min [facility] Respiratory rate 2023-07-14 00:30:00 19 /min [facility] Oxygen saturation in Arterial blood by Pulse oximetry 2023-07-14 00:30:00 96 /min [facility] Body temperature 2023-07-13 22:49:00 36.5 Carmen [facility] Body height 2023-07-13 22:49:00 157.5 cm [facility] Body weight 2023-07-13 22:49:00 95.255 kg [facility] BMI 2023-07-13 22:49:00 38.41 kg/m2 [facility] Systolic blood pressure 2022-08-31 16:50:00 125 mm[Hg] [facility] Diastolic blood pressure 2022-08-31 16:50:00 90 mm[Hg] [facility] Heart rate 2022-08-31 16:50:00 118 /min [facility] Body temperature 2022-08-31 16:50:00 36.83 Carmen [facility] Respiratory rate 2022-08-31 16:50:00 20 /min [facility] Body weight 2022-08-31 16:50:[address] [facility] BMI 2022-08-31 16:50:00 36.58 kg/m2 [facility] Oxygen saturation in Arterial blood by Pulse oximetry 2022-08-31 16:50:00 99 /min [facility] Systolic blood pressure 2022-07-15 22:04:07 111 mm[Hg] [facility] Diastolic blood pressure 2022-07-15 22:04:07 92 mm[Hg] [facility] Heart rate 2022-07-15 22:04:07 88 /min [facility] Respiratory rate 2022-07-15 22:04:07 16 /min [facility] Oxygen saturation in Arterial blood by Pulse oximetry 2022-07-15 22:04:07 100 /min [facility] Body temperature 2022-07-15 17:30:00 37 Carmen [facility] Body height 2022-07-15 17:30:00 157.5 cm [facility] Body weight 2022-07-15 17:30:00 90.719 kg [facility] BMI 2022-07-15 17:30:00 36.58 kg/m2 [facility] Systolic blood pressure 2022-05-01 19:30:43 112 mm[Hg] [facility] Diastolic blood pressure 2022-05-01 19:30:43 76 mm[Hg] [facility] Heart rate 2022-05-01 19:30:43 88 /min [facility] Body temperature 2022-05-01 19:30:43 37 Carmen [facility] Respiratory rate 2022-05-01 19:30:43 18 /min [facility] Oxygen saturation in Arterial blood by Pulse oximetry 2022-05-01 19:30:43 100 /min [facility] Body weight 2022-05-01 17:38:[address] [facility] BMI 2022-05-01 17:38:00 35.30 kg/m2 [facility] Systolic blood pressure 2021-01-04 19:00:00 109 mm[Hg] [facility] Diastolic blood pressure 2021-01-04 19:00:00 67 mm[Hg] [facility] Heart rate 2021-01-04 19:00:00 88 /min [facility] Respiratory rate 2021-01-04 19:00:00 19 /min [facility] Oxygen saturation in Arterial blood by Pulse oximetry 2021-01-04 19:00:00 100 /min [facility] Body temperature 2021-01-04 17:31:00 37.17 Carmen [facility] Body weight 2021-01-04 17:31:00 87.544 kg [facility] BMI 2021-01-04 17:31:00 35.30 kg/m2 [facility] Systolic blood pressure 2020-02-03 00:13:53 134 mm[Hg] [facility] Diastolic blood pressure 2020-02-03 00:13:53 89 mm[Hg] [facility] Heart rate 2020-02-03 00:13:53 101 /min [facility] Respiratory rate 2020-02-03 00:13:53 20 /min [facility] Oxygen saturation in Arterial blood by Pulse oximetry 2020-02-03 00:13:53 97 /min [facility] Body temperature 2020-02-02 18:46:00 37.83 Carmen [facility] Body weight 2020-02-02 18:46:00 84.823 kg [facility] BMI 2020-02-02 18:46:00 34.20 kg/m2 [facility] Body height 2020-02-02 18:45:00 157.5 cm [facility] Systolic blood pressure 2020-02-03 00:13:53 134 mm[Hg] [facility] Diastolic blood pressure 2020-02-03 00:13:53 89 mm[Hg] [facility] Heart rate 2020-02-03 00:13:53 101 /min [facility] Respiratory rate 2020-02-03 00:13:53 20 /min [facility] Oxygen saturation in Arterial blood by Pulse oximetry 2020-02-03 00:13:53 97 /min [facility] Body temperature 2020-02-02 18:46:00 37.83 Carmen [facility] Body weight 2020-02-02 18:46:00 84.823 kg [facility] BMI 2020-02-02 18:46:00 34.20 kg/m2 [facility] Body height 2020-02-02 18:45:00 157.5 cm [facility] Procedures Procedure Date / Time Performed Performing Clinicia n Source MAGNESIUM 2023-07-13 23:35:00 [facility] COMP. METABOLIC PANEL ([id number]) 2023-07-13 23:35:00 Supriya Pfeiffer [facility] CBC WITH DIFF 2023-07-13 23:35:00 [facility] 2023-07-13 23:35:00 [facility] 2023-07-13 23:17:00 Brynn Pfeiffer ra [facility] CONSENT/REFUSAL FOR DIAGNOSIS AND TREATMENT 2023-07-13 22:39:40 Doctor Unassigned, [place] [facility] REFERRAL- REQUEST/RESPONSE 2023-02-17 05:01:00 Doctor Unassigned, [place] [facility] CONSENT/REFUSAL FOR DIAGNOSIS AND TREATMENT 2022-08-31 16:36:06 Doctor Unassigned, [place] [facility] CT ABDOMEN PELVIS W CONTRAST 2022-07-15 19:52:36 Debbie Boyce [facility] COMP. METABOLIC PANEL ([id number]) 2022-07-15 19:34:00 Debbie Boyce [facility] CBC WITH DIFF 2022-07-15 19:34:00 [facility] 2022-07-15 19:34:00 Debbie Boyce Uni [facility] POCT TEST 2022-07-15 19:34:00 Kirit Boyce [facility] CONSENT/REFUSAL FOR DIAGNOSIS AND TREATMENT 2022-07-15 17:04:45 Doctor Unassigned, [place] [facility] CT ABDOMEN PELVIS WO CONTRAST 2022-05-01 18:06:33 [facility]. METABOLIC PANEL ([id number]) 2022-05-01 17:58:00 Marcio Augustine [facility] CBC WITH DIFF 2022-05-01 17:58:00 Singer Marcio [facility] URINALYSIS 2022-05-01 17:41:00 [facility] NOTICE OF PRIVACY PRACTICES 2022-05-01 17:31:57 Doctor Unassigned, [place] [facility] CONSENT/REFUSAL FOR DIAGNOSIS AND TREATMENT 2022-05-01 17:28:36 Doctor Unassigned, [place] [facility] LIPASE 2021-01-04 17:41:00 Gagandeep [facility] COMP. METABOLIC PANEL ([id number]) 2021-01-04 17:41:00 Gagandeep Rutherford [facility] CBC WITH DIFF 2021-01-04 17:41:00 Gagandeep Rutherford [facility] URINALYSIS 2021-01-04 17:41:00 Gagandeep [facility] POCT TEST 2021-01-04 17:41:00 Gagandeep Rutherford [facility] NOTICE OF PRIVACY PRACTICES 2021-01-04 17:17:35 Doctor Unassigned, [place] [facility] CONSENT/REFUSAL FOR DIAGNOSIS AND TREATMENT 2021-01-04 17:17:20 Doctor Unassigned, [place] [facility] XR CHEST 1 VW COVID 2020-02-02 22:20:20 Ana Laura Perez [facility] CT ABDOMEN PELVIS WO CONTRAST 2020-02-02 22:14:49 Rafael Perez [facility] COMP. METABOLIC PANEL ([id number]) 2020-02-02 21:58:00 Rafael Perez [facility] CBC WITH DIFF 2020-02-02 21:58:00 Rafael Perez [facility] POCT TEST 2020-02-02 21:58:00 Ana Laura Perez [facility] URINALYSIS 2020-02-02 21:51:00 Rafael [facility] COVID-19 (ID NOW RAPID TESTING) 2020-02-02 21:48:00 Rafael Perez [facility] NOTICE OF PRIVACY PRACTICES 2020-02-02 18:28:09 Doctor Unassigned, [place] [facility] CONSENT/REFUSAL FOR DIAGNOSIS AND TREATMENT 2020-02-02 18:21:41 Doctor Unassigned, [place] [facility] Encounters Start Date/Time End Date/Time Encounter Type Admission Type Attending [facility] Care Facility Care Department Encounter ID Source 2023-07-13 16:52:00 2023-07-13 18:48:00 Emergency X SUPRIYA PFEIFFER [facility] ERT [id number] [facility] 2023-07-13 16:52:00 2023-07-13 18:48:00 Emergency Supriya Pfeiffer [facility] 1.2.840.114 350.1.13.10 4.2.7.2.686 [id number] [facility] 2023-06-30 13:51:15 2023-06-30 13:51:15 Outpatient SFA [facility] [id number] Dani Salamanca 2023-05-26 17:25:40 2023-05-26 17:25:40 Outpatient [facility] [id number] Dani Colvin [place] 2023-02-23 09:27:08 2023-02-23 09:27:08 Outpatient SFA [facility] [id number] Dani Salamanca 2023-02-20 10:16:33 2023-02-20 10:16:33 Outpatient [facility] [id number] Dani Colvin Che[place] 2023-02-17 10:05:32 2023-02-17 10:05:32 Outpatient [facility] [id number] Dani Salamanca 2023-02-17 00:00:00 2023-02-17 00:00:00 Orders Only Doctor Unassigned, [place] [facility] 1.2.840.114 350.1.13.10 4.2.7.2.686 [id number] [facility] 2022-12-08 09:36:02 2022-12-08 09:36:02 Outpatient [facility] [id number] Dani Colvin [place] 2022-12-05 09:31:37 2022-12-05 09:31:37 Outpatient [facility] 05 Dani Colvin [place] 2022-12-01 09:16:39 2022-12-01 09:16:39 Outpatient [facility] [id number] Dani Colvin [place] 2022-09-22 17:04:02 2022-09-22 17:04:02 Outpatient [facility] [id number] Dani Colvin [place] 2022-08-31 10:51:00 2022-08-31 11:41:00 Emergency X SUPRIYA PFEIFFER [facility] ERT [id number] [facility] 2022-08-31 10:51:00 2022-08-31 11:41:00 Emergency Supriya Pfeiffer [facility] 1.2.840.114 350.1.13.10 4.2.7.2.686 [id number] [facility] 2022-07-15 11:31:00 2022-07-15 16:31:00 Emergency X DEBBIE BOYCE [facility] ERT [id number] [facility] 2022-07-15 11:31:00 2022-07-15 16:31:00 Emergency Debbie Boyce [facility] 1.2.840.114 350.1.13.10 4.2.7.2.686 [id number] [facility] 2022-05-01 12:42:00 2022-05-01 14:35:00 Emergency X MARCIO AUGUSTINE [facility] ERT [id number] [facility] 2022-05-01 12:42:00 2022-05-01 14:35:00 Emergency Marcio Augustine [facility] 1.2.840.114 350.1.13.10 4.2.7.2.686 [id number] [facility] 2021-01-04 12:26:00 2021-01-04 15:02:00 Emergency Gagandeep Rutherford [facility] 1.2.840.114 350.1.13.10 4.2.7.2.686 [id number] [facility] 2021-01-04 12:26:00 2021-01-04 12:26:00 Emergency X Gagandeep RUTHERFORD [facility] ERT [id number] [facility] 2021-01-04 00:00:00 2021-01-04 00:00:00 Orders Only Doctor Unassigned, [place] [facility] 1.2.840.114 350.1.13.10 4.2.7.2.686 [id number] [facility] 2020-02-04 00:00:00 2020-02-04 00:00:00 Patient Secure Msg Doctor Unassigned, [place] [facility] 1.2.840.114 350.1.13.10 4.2.7.2.686 [id number] [facility] 2020-02-02 14:49:37 2020-02-02 19:17:00 Emergency Rafael Perez [facility] 1.2.840.114 350.1.13.10 4.2.7.2.686 [id number] 2020-02-02 14:49:37 2020-02-02 19:17:00 Emergency Rafael Perez Marii [facility] 1.2.840.114 350.1.13.10 4.2.7.2.686 [id number] [facility] 2020-02-02 13:20:00 2020-02-02 13:20:00 Emergency X [facility] ERT [id number] [facility] Results Test Description Test Time Test Comments Results Result Co mments Source [facility]ULT[facility], [id number] 12:20:12SPECIMEN NUMBER: [id number] CULTURE, URINE SPECIMEN NUMBER: [id number] SPECIMEN COMMENT: URINE SOURCE: URINE REPORT STATUS: FINAL ISOLATE NUMBER 1: ORGANISM: 07/02/2023 50-100,000 CFU/ML GRAM NEGATIVEBACILLI IDENTIFICATION: 07/03/2023 KLEBSIELLA PNEUMONIAE K. PNEUMONIAE AMOXICILLIN/CA SENSITIVE <=8/4AMPICILLIN RESISTANT >16CEFAZOLIN SENSITIVE <=2CEFTRIAXONE SENSITIVE <= 1CIPROFLOXACIN SENSITIVE <=1LEVOFLOXACIN SENSITIVE <=2NITROFURANTOIN SENSITIVE <=32PIP/TAZOBAC SENSITIVE <=16TETRACYCLINE SENSITIVE <=4TOBRAMYCIN SENSITIVE <=4TRIMETH/SULFA SENSITIVE <=2/38 NOTE: NUMBERS DISPLAYED REPRESENT MINIMUM INHIBITORY CONCENTRATION (ARTEMIO) WHICH IS EXPRESSED IN MCG/ML. UNLESS OTHERWISE INDICATED, ALL TESTING PERFORMED AT [facility] [address] [place] [address] HISTORIAN RESEARCH ASSISTANT: MAKAYLA ABRAMS M.D. [place] NUMBER [id number] [facility] [place]. [id number], [id number] 09:47:07SPECIMEN NUMBER: [id number] CULTURE, URINE SPECIMEN NUMBER: [id number] SPECIMEN COMMENT: URINE SOURCE: URINE REPORT STATUS: FINAL FINAL REPORT: 02/19/2023 10-50,000 CFU/ML UROGENITAL LANI PRESENT NO COMMON PATHOGENS HEMOGLOBIN [id number] 05:52:53* Test Item Value Reference Range Interpretation Comme nts HEMOGLOBIN A1c (test code = 02483) 5.7 % 4.2-5.6 H [employer] GUIDELINES FOR HGB A1C: PREDIABETES/INCREASED RISK . . . . . . . 5.7-6.4% DIAGNOSIS OF DIABETES . . . . . . . . . >=6.5% WITH CONFIRMATION OR APPROPRIATE SYMPTOMS NOTE: ASSAY MAY BE AFFECTED BY HEMOGLOBINOPATHIES (SICKLE CELL ANEMIA, S-C DISEASE, OTHERS) OR ARTIFICIALLY LOWERED BY DECREASED RED CELL SURVIVAL (HEMOLYTIC ANEMIAS, BLOOD LOSS, ETC.). CONSIDER ALTERNATE TESTING OR LABORATORY CONSULTATION. HEPATITIS PANEL, [id number] 04:21:09* Test Item Value Reference Range Interpretation [...] A. INTERPRETATION HEPATITIS B: (test code = 20876) (NOTE) Hepatitis B sero logy shows no evidence of past exposure to orcurrent infection with hepatitis B virus. No evidence of hepatitis Bimmunization is identified. INTERPRETATION HEPATITIS C: (test code = 10390) (NOTE) Hepatitis C sero logy shows no evidence of exposure to hepatitisC virus at this time. It can take up to 12 months after exposure tothe hepatitis C virus for antibodies to become detectable in the blood in certain patients. UNLESS OTHERWISE INDICATED, ALL TESTING PERFORMED AT [facility] [address] [place] [address] HISTORIAN RESEARCH ASSISTANT: MAKAYLA ABRAMS M.D. [place] NUMBER [id number] [facility] [place]. [id number] COMPREHENSIVE METABOLIC [id number] 03:56:49* Test Item Value Reference Range Interpretation Comme nts GLUCOSE (test code = 2217) 101 MG/DL 70-99 H BUN (test code = 2208) 10 MG/DL 6-20 CREATININE (test code = 2214) 0.80 MG/DL 0.60-1.30 eGFR (2020 CKD-EPI) (test code = 61718) 91 ML/MIN/1.73 >60 CALC BUN/CREAT (test code = 2235) 13 RATIO 6-28 SODIUM (test code = 2231) 138 MEQ/L 133-146 POTASSIUM (test code = 2228) 4.0 MEQ/L 3.5-5.4 CHLORIDE (test code = 2215) 109 MEQ/L 95-107 H CARBON DIOXIDE (test code = 2206) 17 MEQ/L 19-31 L CALCIUM (test code = 2209) 8.8 MG/DL 8.5-10.5 PROTEIN, TOTAL (test code = 222) 7.3 G/DL 6.1-8.3 ALBUMIN (test code = [...] 35 U/L 9-40 ALT (test code = 221) 43 U/L 5-40 H LIPID [id number] 03:56:49* Test Item Value Reference Range Interpretation [...] SPECIMENS. FOR MOREINFORMATION, SEE CLIENT ANNOUNCEMENT AT [email or web address] RISK RATIO LDL/HDL (test code = 2238) 2.07 RATIO <3.22 CBC W/AUTO DIFF WITH [id number] 01:44:08* Test Item Value Reference Range Interpretation [...] = 1065) 0.0 /100 WBC'S See_Comment [Automated messa ge] The system which [...] 0.00-0.10 ABS NUCLEATED RBCS (test code = 39070) 0.00 K/UL 0.00-0.11 VAGINAL PATHOGENS DNA [id number] 13:08:06* Test Item Value Reference Range Interpretation Comme nts CATA SPECIES (test code = ) POSITIVE NEGATIVE A G. VAGINALIS (test code = ) NEGATIVE NEGATIVE T. VAGINALIS (test code = ) NEGATIVE NEGATIVE Note: The BD [facility] ir VPIII Microbial Identification Testis a DNA probe test intended for use in the detectionand identification of Cata species, Gardnerellavaginalis and Trichomonas vaginalis nucleic acid. [facility] has important pathology staff changes effective 09/14/2022. New pathology staff will provide uninterrupted, excellent patient care and clinical consultation. See URL: [email or web address]. UNLESS OTHERWISE INDICATED, ALL TESTING PERFORMED AT [facility] [address] [place] [address] HISTORIAN RESEARCH ASSISTANT: MAKAYLA ABRAMS M.D. CLIA NUMBER [id number] [facility] [place]. [id number] COMP. METABOLIC PANEL (92342)2022-07-15 20:37:41* Test Item Value Reference Range Interpretation Comme nts NA (test code = 9802286754) 138 mmol/L 135-145 K (test code = 1147178447) 5.2 mmol/L 3.5-5.0 H CL (test code = 0467517185) 111 mmol/L 98-108 H CO2 TOTAL (test code = 8191884935) 18 mmol/L 23-31 L AGAP (test code = 3312535406) 2-16 BUN (test code = 3345178487) 11 mg/dL 7-23 GLUCOSE (test code = 4166887008) 83 mg/dL 70-110 CREATININE (test code = 5541031551) 0.97 mg/dL 0.50-1.04 TOTAL BILI (test code = 7675114614) 0.6 mg/dL 0.1-1.1 CALCIUM (test code = 8240690940) 8.5 mg/dL 8.6-10.6 L T PROTEIN (test code = 2387482302) 7.5 g/dL 6.3-8.2 ALBUMIN (test code = 3736567706) 4.1 g/dL 3.5-5.0 ALK PHOS (test code = 3147201695) 106 U/L 34-122 ALTv (test code = 1742-6) 18 U/L 5-35 AST(SGOT) (test code = 7862833286) 35 U/L 13-40 eGFR (test code = 0818331985) mL/min/1.73m2 TOMA (test code = TOMA) Association [...] imaging tests). Lab Interpretation (test code = 14682-1) Abnormal [facility] WITH [id number] 20:07:37* Test Item Value Reference Range Interpretation Comme nts WBC (test code = 6690-2) See_Comment [[employer]] The system which generated this result transmitted reference range: 4.30 - 11.10 10*3/?L. The reference range was not used to interpret this result as normal/abnormal. RBC (test code = 789-8) See_Comment [Automated [employer]] The system which generated this result transmitted [...] 33.3 g/dL 31.6-35.1 RDW-SD (test code = 67360-2) 47.9 fL 39.0-49.9 RDW-CV (test code = 788-0) 15.1 % 12.0-15.5 PLT (test code = 777-3) See_Comment [Automated messa ge] The system which generated this result transmitted reference range: 166 - 358 10*3/?L. The reference range was not used to interpret this result as normal/abnormal. MPV (test code = 75907-2) 9.8 fL 9.5-12.9 NRBC/100 WBC (test code = 9597401288) See_Comment [Automated me ssage] The system which generated this result transmitted reference range: 0.0 - 10.0 /100 WBCs. The reference range was not used to interpret this result as normal/abnormal. NRBC x10^3 (test code = 4693007656) See_Comment [Automated me ssage] The system which generated this result transmitted reference range: 10*3/?L. The reference range was not used to interpret this result as normal/abnormal. GRAN MAT (NEUT) % (test code = 770-8) 63.9 % IMM GRAN % (test code = 7585353097) 0.50 % LYMPH % (test code = 736-9) 24.7 % MONO % (test code = 5905-5) 9.6 % EOS % (test code = 713-8) 0.9 % BASO % (test code = 706-2) 0.4 % GRAN MAT x10^3(ANC) (test code = 1481035650) 5.04 10*3/uL 1.88-7.09 IMM GRAN x10^3 (test code = 7875544792) 0.04 10*3/uL 0.00-0.06 LYMPH x10^3 (test code = 731-0) 1.95 10*3/uL 1.32-3.29 MONO x10^3 (test code = 742-7) 0.76 10*3/uL 0.33-0.92 EOS x10^3 (test code = 711-2) 0.07 10*3/uL 0.03-0.39 BASO x10^3 (test code = 704-7) 0.03 10*3/uL 0.01-0.07 [facility] [id number] 19:34:00* Test Item Value Reference Range Interpretation Comme nts POCT PREG (test code = 1605) Negative On board controls acceptable with C Line (test code = 3574) Present POCT PREG LOT # (test code = 3575) [id number] POCT PREG TEST DATE ( test code = 3576) 10-15-2023 Lab Interpretation (test cod e = 73428-1) Normal [facility]. METABOLIC PANEL (57305)2022-05-01 18:34:40* Test Item Value Reference Range Interpretation Comme nts NA (test code = 0514542997) 140 mmol/L 135-145 K (test code = 7112280511) 4.4 mmol/L 3.5-5 CL (test code = 7154183113) 110 mmol/L 98-108 H CO2 TOTAL (test code = 2242906066) 20 mmol/L 23-31 L AGAP (test code = 2814608371) 2-16 BUN (test code = 0491880966) 10 mg/dL 7-23 GLUCOSE (test code = 9629093992) 104 mg/dL 70-110 CREATININE (test code = 9239729097) 0.84 mg/dL 0.5-1.04 TOTAL BILI (test code = 9257275505) 0.3 mg/dL 0.1-1.1 CALCIUM (test code = 0135470679) 8.2 mg/dL 8.6-10.6 L T PROTEIN (test code = 0771935995) 7.0 g/dL 6.3-8.2 ALBUMIN (test code = 8509683504) 4.1 g/dL 3.5-5 ALK PHOS (test code = 2329072666) 95 U/L 34-122 ALTv (test code = 1742-6) 34 U/L 5-35 AST(SGOT) (test code = 4746798045) 45 U/L 13-40 H eGFR (test code = 6457933377) mL/min/1.73m2 TOMA (test code = OTMA) Association of Glomerular Filtration Rate (GFR) and [...] imaging tests). Lab Interpretation (test code = 44779-4) Abnormal [facility] WITH [id number] 18:13:21* Test Item Value Reference Range Interpretation Comme nts WBC (test code = 6690-2) See_Comment [Automated [employer]] The system which generated this result transmitted reference range: 4.30 - 11.10 10*3/?L. The reference range was not used to interpret this result as normal/abnormal. RBC (test code = 789-8) See_Comment [Automated [employer]] The system which generated this result transmitted [...] 32.1 g/dL 31.6-35.1 RDW-SD (test code = 07958-8) 48.9 fL 39-49.9 RDW-CV (test code = 788-0) 15.7 % 12-15.5 H PLT (test code = 777-3) See_Comment [Automated messa ge] The system which generated this result transmitted reference range: 166 - 358 10*3/?L. The reference range was not used to interpret this result as normal/abnormal. MPV (test code = 47028-8) 9.5 fL 9.5-12.9 NRBC/100 WBC (test code = 6350460285) See_Comment [Automated [employer] ssage] The system which generated this result transmitted reference range: 0.0 - 10.0 /100 WBCs. The reference range was not used to interpret this result as normal/abnormal. NRBC x10^3 (test code = 1897836776) See_Comment [Automated messa ge] The system which generated this result transmitted reference range: 10*3/?L. The reference range was not used to interpret this result as normal/abnormal. GRAN MAT (NEUT) % (test code = 770-8) 63.1 % IMM GRAN % (test code = 1739415740) 0.40 % LYMPH % (test code = 736-9) 24.5 % MONO % (test code = 5905-5) 9.2 % EOS % (test code = 713-8) 2.3 % BASO % (test code = 706-2) 0.5 % GRAN MAT x10^3(ANC) (test code = 9311802343) 5.11 10*3/uL 1.88-7.09 IMM GRAN x10^3 (test code = 0109628564) 0.03 10*3/uL 0-0.06 LYMPH x10^3 (test code = 731-0) 1.99 10*3/uL 1.32-3.29 MONO x10^3 (test code = 742-7) 0.75 10*3/uL 0.33-0.92 EOS x10^3 (test code = 711-2) 0.19 10*3/uL 0.03-0.39 BASO x10^3 (test code = 704-7) 0.04 10*3/uL 0.01-0.07 Lab Interpretation (test code = 51139-8) Abnormal [facility] DNA [id number] 15:54:23 * Test Item Value Reference Range Interpretation Comme nts CATA SPECIES (test code = 82784) POSITIVE NEGATIVE A G. VAGINALIS (test code = 73661) POSITIVE NEGATIVE A T. VAGINALIS (test code = 96962) NEGATIVE NEGATIVE UNLESS OTHERWISE INDICATED, ALL TESTING PERFORMED ATCLINICAL PATHOLOGY [facility] [employer] [address] [place] [address] HISTORIAN RESEARCH ASSISTANT: THEO MEDINA M.D. CLIA NUMBER [id number] [facility] [place]. [id number] SCR MAMM BILATERAL NATHAN CAD [id number] 08:04:31 Name: Yissel : 1975 Sex: F - SCR MAMM BILATERAL NATHAN CAD DIGITALBILATERAL DIGITAL SCREENING MAMMOGRAM 3D/2D WITH CAD: 04/08/2022LINICAL: Asymptomatic. Digital breast tomosynthesis was performed in addition to routine CC and MLO views. Current mammographic images were evaluated by [employer] CAD (computer-aided detection) software. No prior exams [...] possible additional viewsare recommended. Sarah Rendon M.D. [facility]/:04/15/2022 08:04:31 Sharepoint Application Architect: Shireen Graham MM, [facility] MammographyMammogram BI-RADS: 0 Incomplete: Additional Imaging Evaluation NeededCT/NG, NAAT, [id number] 21:50:47* Test Item Value Reference Range Interpretation Comme nts GONORRHEA, NAAT (test code = 51788) NEGATIVE NEGATIVE IMPORTANT NO COLBY: SEE ANNOUNCEMENT AT [email or web address] MediasUrineKit Note: Assay methodology is nucleic acid amplification by inside steward/stewardess mediated amplification (TMA) utilizing the Aptima Combo 2 Assay. CHLAMYDIA, NAAT (test code = 40374) NEGATIVE NEGATIVE IMPORTANT NO COLBY: SEE ANNOUNCEMENT AT [email or web address] MediasUSecret SalesKit Note: Assay methodology is nucleic acid amplification by inside steward/stewardess mediated amplification (TMA) utilizing the Aptima Combo 2 Assay. HIV 1/2 4TH GEN, RFLX [id number] 04:59:08* Test Item Value Reference Range Interpretation Comme nts HIV 1/2 4TH GEN, RFLX CONF ( test code = 3514) NON-REACTIVE NON-REACTIVE HEPATITIS PANEL, [id number] 04:59:08* Test Item Value Reference Range Interpretation Comme nts HEPATITIS A IgM (test code = 73345) NON-REACTIVE NON-REACTIVE HEPATITIS B CORE IgM (test code = 4644) NON-REACTIVE NON-REACTIVE HEPATITIS B SURF AG (test code = 2739) NON-REACTIVE NON-REACTIVE HEPATITIS C ANTIBODY (test code = 4675) NON-REACTIVE NON-REACTIVE INTERPRETATION HEPATITIS A: (test code = 2552) (NOTE) Hepatitis A serology shows no evidence of acute hepatitis A. INTERPRETATION HEPATITIS B: (test code = 43612) (NOTE) Hepatitis B serology shows no evidence of acute hepatitis B andno indication of exposure to hepatitis B virus in the previous ce eight months. INTERPRETATION HEPATITIS C: (test code = 71778) (NOTE) Hepatitis C serology shows no evidence of exposure to hepatitisC virus at this time. It can take up to 12 months after exposure tothe hepatitis C virus for antibodies to become detectable in the blood in certain patients. [id number] 04:17:56* Test Item Value Reference Range Interpretation Comme nts RPR RESULT (test code = 3501) NON-REACTIVE NON-REACTIVE RPR TITER (test code = 3500) NOT INDIC. TITER NOT INDIC. UNLESS OTHERWISE INDICATED, ALL TESTING PERFORMED [facility] [employer] [address] [place] [address] HISTORIAN RESEARCH ASSISTANT: THEO MEDINA M.D. [place] NUMBER [id number] [facility] [place]. [id number] Complete Metabolic [id number] 18:07:03* Test Item Value Reference Range Interpretation Comme nts NA (test code = 7523362521) 139 mmol/L 135-145 K (test code = 6815047985) 3.6 mmol/L 3.5-5.0 CL (test code = 5216066548) 109 mmol/L 98-108 H CO2 TOTAL (test code = 2886845889) 19 mmol/L 23-31 L AGAP (test code = 6710519812) 2-16 BUN (test code = 3364975238) 10 mg/dL 7-23 GLUCOSE (test code = 4296700047) 112 mg/dL 70-110 H CREATININE (test code = 4605292536) 0.89 mg/dL 0.50-1.04 TOTAL BILI (test code = 1313561462) 0.3 mg/dL 0.1-1.1 CALCIUM (test code = 1510452320) 8.1 mg/dL 8.6-10.6 L T PROTEIN (test code = 3680792986) 8.1 g/dL 6.3-8.2 ALBUMIN (test code = 0609459201) 4.3 g/dL 3.5-5.0 ALK PHOS (test code = 6408115307) 121 U/L 34-122 ALTv (test code = 1742-6) 22 U/L 5-35 AST(SGOT) (test code = 3231774871) 33 U/L 13-40 eGFR (test code = 6988216600) mL/min/1.73m2 TOMA (test code = TOMA) Association [...] imaging tests). Lab Interpretation (test code = 84669-5) Abnormal [facility], [id number] 18:06:22* Test Item Value Reference Range Interpretation Comme nts LIPASE (test code = 1377388643) 65 U/L 0-220 Lab Interpretation (test cod e = 21479-0) Normal [facility] HospitalUrinalysis2021-06-21 18:03:42* Test Item Value Reference Range Interpretation Comme nts APPEARANCE (test code = 7963262423) Hazy Clear A COLOR (test code = 8053222345) Reta Yellow A PH (test code = 2349281730) 4.8-8.0 SP GRAVITY (test code = 4718513105) 1.003-1.030 GLU U QUAL (test code = 4921594822) Normal Normal BLOOD (test code = 7584795956) 1+ Negative A KETONES (test code = 2643101954) Negative Negative PROTEIN (test code = 2887-8) 30 mg/dL Negative A UROBILIN (test code = 6719185313) 4.0 mg/dL Normal A BILIRUBIN (test code = 4164790945) Negative Negative NITRITE (test code = 5690715181) Positive Negative A LEUK CHARLES (test code = 6972291858) Negative Negative RBC/HPF (test code = 9899823542) See_Comment H [Automated messa ge] The system which generated this result transmitted reference range: 0 - 3 HPF. The reference range was not used to interpret this result as normal/abnormal. WBC/HPF (test code = 8613420619) See_Comment H [Automated messa ge] The system which generated this result transmitted reference range: 0 - 5 HPF. The reference range was not used to interpret this result as normal/abnormal. BACTERIA (test code = 1523722625) Many Negative A MUCOUS (test code = 0367151081) Marked Negative LPF A SQ EPITH (test code = 1053398471) HPF Lab Interpretation (test code = 26522-5) Abnormal [facility] with [facility]sm0834-21-30 17:53:21* Test Item Value Reference Range Interpretation Comme nts WBC (test code = 6690-2) See_Comment [Automated Fanatics[employer] ge] The system which generated this result transmitted reference range: 4.30 - 11.10 10*3/?L. The reference range was not used to interpret this result as normal/abnormal. RBC (test code = 789-8) See_Comment [Automated [employer]] The system which generated this result [...] 31.9 g/dL 31.6-35.1 RDW-SD (test code = 44628-7) 48.3 fL 39.0-49.9 RDW-CV (test code = 788-0) 15.2 % 12.0-15.5 PLT (test code = 777-3) See_Comment [Automated messa ge] The system which generated this result transmitted reference range: 166 - 358 10*3/?L. The reference range was not used to interpret this result as normal/abnormal. MPV (test code = 36937-8) 9.5 fL 9.5-12.9 NRBC/100 WBC (test code = 6569293231) See_Comment [Automated me ssage] The system which generated this result transmitted reference range: 0.0 - 10.0 /100 WBCs. The reference range was not used to interpret this result as normal/abnormal. NRBC x10^3 (test code = 7927603905) <0.01 See_Comment [Automated me ssage] The system which generated this result transmitted reference range: 10*3/?L. The reference range was not used to interpret this result as normal/abnormal. GRAN MAT (NEUT) % (test code = 770-8) 67.1 % IMM GRAN % (test code = 9933724947) 0.50 % LYMPH % (test code = 736-9) 21.1 % MONO % (test code = 5905-5) 10.6 % EOS % (test code = 713-8) 0.5 % BASO % (test code = 706-2) 0.2 % GRAN MAT x10^3(ANC) (test code = 9966415813) 5.75 10*3/uL 1.88-7.09 IMM GRAN x10^3 (test code = 2736998329) 0.04 10*3/uL 0.00-0.06 LYMPH x10^3 (test code = 731-0) 1.81 10*3/uL 1.32-3.29 MONO x10^3 (test code = 742-7) 0.91 10*3/uL 0.33-0.92 EOS x10^3 (test code = 711-2) 0.04 10*3/uL 0.03-0.39 BASO x10^3 (test code = 704-7) <0.03 0.01-0.07 [facility] Gdui5126-78-87 17:41:00* Test Item Value Reference Range Interpretation Comme nts POCT PREG (test code = 1605) negative On board controls acceptable with C Line (test code = 3574) present Lab Interpretation (test cod e = 47634-5) Normal [facility] (ID NOW RAPID TESTING)2020-02-02 23:10:00* Test Item Value Reference Range Interpretation Comme nts SARS-CoV-2 Rapid ID NOW (test code = 59090-6) Not Detected Not Detected TOMA (test code = TOMA) ID NOW COVID-19 As say is an isothermal nucleic acid amplification test intended for the qualitative detection of nucleic acid from SARS-CoV-2 viral RNA in nasopharyngeal ([employer] COORDINATOR) specimens. It is used under Emergency Use [...] clinically indicated. Lab Interpretation (test code = 38282-4) Normal [facility]2020-07-19 23:05:00* Test Item Value Reference Range Interpretation Comme nts APPEARANCE (test code = 5274795541) Hazy Clear A COLOR (test code = 9874782441) Yellow Yellow PH (test code = 0915935593) 4.8-8.0 SP GRAVITY (test code = 7188392655) 1.003-1.030 GLU U QUAL (test code = 1073439231) Normal Normal BLOOD (test code = 8694664422) Negative Negative KETONES (test code = 8648366912) Negative Negative PROTEIN (test code = 2887-8) Negative Negative UROBILIN (test code = 8806946879) Normal Normal BILIRUBIN (test code = 8737916339) Negative Negative NITRITE (test code = 2429269712) Negative Negative LEUK CHARLES (test code = 0580916596) Negative Negative RBC/HPF (test code = 1134482824) See_Comment H [Automated messa ge] The system which generated this result transmitted reference range: 0 - 3 HPF. The reference range was not used to interpret this result as normal/abnormal. WBC/HPF (test code = 7102479482) See_Comment [Automated messa ge] The system which generated this result transmitted reference range: 0 - 5 HPF. The reference range was not used to interpret this result as normal/abnormal. BACTERIA (test code = 7891642121) Few Negative A MUCOUS (test code = 3619214405) Moderate Negative LPF A SQ EPITH (test code = 6000362858) HPF HYAL CAST (test code = 0097262063) See_Comment [Automated messa ge] The system which generated this result transmitted reference range: <=2 LPF. The reference range was not used to interpret this result as normal/abnormal. Lab Interpretation (test code = 71774-9) Abnormal [facility]COMP. METABOLIC PANEL (85870)2020-02-02 22:52:00* Test Item Value Reference Range Interpretation Comme nts NA (test code = 6609233364) 140 mmol/L 135-145 K (test code = 8610711497) 3.8 mmol/L 3.5-5 CL (test code = 1421053448) 111 mmol/L 98-108 H CO2 TOTAL (test code = 2549909800) 20 mmol/L 23-31 L AGAP (test code = 3675650129) 2-16 BUN (test code = 0060169492) 10 mg/dL 7-23 GLUCOSE (test code = 4125702327) 94 mg/dL 70-110 CREATININE (test code = 2125935734) 1.11 mg/dL 0.5-1.04 H TOTAL BILI (test code = 7674023929) 0.4 mg/dL 0.1-1.1 CALCIUM (test code = 9305260949) 8.8 mg/dL 8.6-10.6 T PROTEIN (test code = 4915956628) 8.4 g/dL 6.3-8.2 H ALBUMIN (test code = 6047835610) 4.4 g/dL 3.5-5 ALK PHOS (test code = 2807222307) 97 U/L 34-122 ALTv (test code = 1742-6) 36 U/L 5-35 H AST(SGOT) (test code = 6050996979) 44 U/L 13-40 H eGFR Calculation (Non-) (test code = 0518944267) mL/min/1.73m2 eGFR Calculation () (test code = 9780366748) mL/min/1.73m2 TOMA (test code = TOMA) Association [...] imaging tests). Lab Interpretation (test code = 21191-2) Abnormal [facility] P[facility] WO DDYWXDZL8574-95-23 22:35:331. No definite acute intra-abdominal or intrapelvic [...] without evidence of diverticulitis4. Hepatic steatosis5. Fibroids [facility] WITH GPIK0516-13-92 22:29:00* Test Item Value Reference Range Interpretation Comme nts WBC (test code = 6690-2) See_Comment [Automated [employer]] The system which generated this result transmitted reference range: 4.30 - 11.10 10*3/?L. The reference range was not used to interpret this result as normal/abnormal. RBC (test code = 789-8) See_Comment [[employer] [facility]] The system which generated this result transmitted [...] 33.1 g/dL 31.6-35.1 RDW-SD (test code = 36765-4) 45.1 fL 39-49.9 RDW-CV (test code = 788-0) 14.2 % 12-15.5 PLT (test code = 777-3) See_Comment [Automated messa ge] The system which generated this result transmitted reference range: 166 - 358 10*3/?L. The reference range was not used to interpret this result as normal/abnormal. MPV (test code = 55311-3) 9.7 fL 9.5-12.9 NRBC/100 WBC (test code = 6965688631) See_Comment [Automated me ssage] The system which generated this result transmitted reference range: 0.0 - 10.0 /100 WBCs. The reference range was not used to interpret this result as normal/abnormal. NRBC x10^3 (test code = 1995115632) <0.01 See_Comment [Automated me ssage] The system which generated this result transmitted reference range: 10*3/?L. The reference range was not used to interpret this result as normal/abnormal. GRAN MAT (NEUT) % (test code = 770-8) 59.9 % IMM GRAN % (test code = 9921293929) 0.50 % LYMPH % (test code = 736-9) 29.0 % MONO % (test code = 5905-5) 9.4 % EOS % (test code = 713-8) 0.9 % BASO % (test code = 706-2) 0.3 % GRAN MAT x10^3(ANC) (test code = 1041278249) 4.70 10*3/uL 1.88-7.09 IMM GRAN x10^3 (test code = 2986528791) 0.04 10*3/uL 0-0.06 LYMPH x10^3 (test code = 731-0) 2.28 10*3/uL 1.32-3.29 MONO x10^3 (test code = 742-7) 0.74 10*3/uL 0.33-0.92 EOS x10^3 (test code = 711-2) 0.07 10*3/uL 0.03-0.39 BASO x10^3 (test code = 704-7) <0.03 0.01-0.07 [facility]XR [facility]ST 1 VW NYGIO3196-61-27 22:28:101. Abnormal changes in the right upper lobe suggestive of pneumonia,including COVID-19 pneumonia. Disclaimer: Generally, the findings on chest imaging in COVID-19 are notspecific, and overlap with other infections, including influenza, H1N1,SARS and MERS.According to the Centers for Disease Control(CDC) and the [employer] [employer], viral testing remains the only [...] Centers for Disease Control (CDC) and the [place] [employer], viral testing remains the only specific method of diagnosiseven if CXR or CT findings are suggestive of COVID-19.[facility]POCT GHTC8719-33-24 21:58:00* Test Item Value Reference Range Interpretation Comme nts POCT PREG (test code = 1605) negative On board controls acceptable with C Line (test code = 3574) present POCT PREG LOT # (test code = 3575) [id number] POCT PREG TEST DATE ( test code = 3576) 02-13-2021 Lab Interpretation (test cod e = 13823-2) Normal [facility] Notes Date/Time Note Provider Source 2023-07-13 18:46:09 kTsKylwU8UXgozBlzTQu fsl81xLX+JDBoZ/ 3YEan6dAvaGOz+0evKlC0AaGCyrBZ9382-0 2-28T18:46:09 DC instructions and prescription for Bentyl reviewed with patient. She will fill prescription and take as directed. She will follow up with her PCP as directed. She was Dc'd ambulatory-warm, dry, pink, alert, in no distress 79453-3Bnvxdxgkq department AnoeRI0614-81-56S57:48:31Emergency department NoteTXT1.2.840.772063.1.13.104.2.7. 2.832591|[id number] for patient igjq05854-4PdieUKVBPFQEYGCSogcmwlqe C-CDA narrative [id number] M Owens RN[address] Jo[id number] 1MFCWKMGCPFWKTKUQWJWLKD5835-97-85G6 8:48:311.2.840.475953.1.72.3.15|1.2 .840.984140.1.13.104.2.7.2.727879_1 [id number] Tristan Waldrop RN [facility] 2023-07-13 16:48:57 vcALeUX0/Ljcal3CinG2 QWDNRUiGXS78sFV G9StDIt0c8vH+NZuynAE6S3/wfziD2683-5 6:48:57 Nausea, back pain x4 days. Starting taking pcn pills from [place] at home she found. Reports urinary frequency. 34209-3Dzihcyvbr department Triage eufkXD1846-67-59R59:51:58[facility] Triage noteTXT1.2.840.639267.1.13.104.2.7. 2.045292|[id number] for patient vjwx65726-3Uvyxqmzby department NoteLNNARRATIVEFormatted C-CDA narrative text[address] Ps[id number] 8UKFJPDSKIEWJUSULLFMBZO4816-31-59J4 6:51:581.2.840.453704.1.72.3.15|1.2 .840.268833.1.13.104.2.7.2.727879_1 [id number] [facility] 2023-07-13 16:39:00 rbgGEyUa1/db4QjKJSou GgnNS9ktgP9Tvf4 FnRHuGbai/Sad1jBaJ43+emTVpuRI4615-4 6:39:00 [facility] Emergency Department NotePatient Name: Yissel Evans of : 1975 47 year old femaleTreatment Room: [facility] Record Number: [id number] Care Physician: Veronica AdornoPatient Escorted by: Self [9]Mode of Arrival: Personal means [1]EMS Treatment Prior to ED Arrival:Travel and Exposure Screening:SymptomsDoes patient have any of these symptoms?: (not recorded)Exposure ScreeningHas patient had contact with someone with a communicable disease in the last month?: (not recorded)Diseases exposed to:: (not recorded)Is Patient ?: (not recorded)Exposure Date: (not recorded)Chief Complaint:Chief ComplaintPatient presents withBack PainNauseaHistory of Present Illness:The patient presents from home for evaluation for nausea and vomiting since Monday. Today is . No diarrhea. No sick contacts. No bad food exposure. No recent trips or travel. She thought she might have been having a bladder or kidney infection so she decided to take some penicillin she has from [place]. She reports has not been helping her. No blood in her vomit. She is a previous history of gallbladder removal. She denies being . No dysuria or hematuria.Here for evaluation.Past Medical History/Immunizations:Past Medical History:Diagnosis DateKidney stonesMigrainessince age 11Tetanus received in last 5 years: NoChildhood immunizations: Gk-le-pxzgJuwrrxdaw:AllergiesAllerg en ReactionsCiprofloxacin HivesReglan [Metoclopramide] HivesRocephin [Ceftriaxone] RashStadol [Butorphanol Tartrate] HivesTequin [Gatifloxacin] Unknown - See commentsToradol [Ketorolac Tromethamine] RashTramadol RashZofran (Pf) In Dextrose [Ondansetron (Pf) In Dextrose] RashPast Social History:Substance & Sexual ActivityNo substance use or sexual activity history on file.Past Surgical History:Past Surgical History:Procedure Laterality DateLAPAROSCOPIC CHOLECYSTECTOMYNEPHRECTOMY RightReview of Systems:Review of SystemsConstitutional: Negative for chills and fever.Respiratory: Negative for cough and shortness of breath.Cardiovascular: Negative for chest pain.Gastrointestinal: Positive for abdominal pain, nausea and vomiting. Negative for diarrhea.Genitourinary: Negative for dysuria.Musculoskeletal: Negative for arthralgias, neck pain and neck stiffness.Skin: Negative for wound.Neurological: Negative for dizziness.Psychiatric/Behavioral: Negative for agitation.Endocrine: Negative for goiter.Physical Exam:ED Triage Vitals [07/13/23 1649]Weight 95.3 kg (210 lb)Actual or estimated Estimated by patient/family reportHeight 1.575 m (5' 2")BP 122/89Pulse 100Resp 18Temp 36.5 ?C (97.7 ?F)Temp source OralSpO2 100 %Measured on Room airPhysical ExamVitals and nursing note reviewed.Constitutional:Appearance: Normal appearance.HENT:Head: Normocephalic and atraumatic.Cardiovascular:Rate and Rhythm: Normal rate.Pulses: Normal pulses.Pulmonary:Effort: Pulmonary effort is normal. No respiratory distress.Abdominal:General: There is no distension.Palpations: There is no mass.Tenderness: There is no abdominal tenderness. There is no guarding or rebound.Hernia: No hernia is present.Musculoskeletal:General: Normal range of motion.Cervical back: Normal range of motion and neck supple.Skin:General: Skin is warm and dry.Neurological:General: No focal deficit present.Mental Status: She is alert and oriented to person, place, and time.Radiology:No orders to displayLab Results:Lab ResultsCBC WITH DIFF - AbnormalResult Value Ref RangeWBC 7.91 4.30 - 11.10 10*3/?LRBC 4.34 3.93 - 5.25 10*6/?LHGB 11.1 (*) 11.6 - 15.0 g/dLHCT 35.1 (*) 35.7 - 45.2 %MCV 80.9 80.6 - 95.5 fLMCH 25.6 (*) 25.9 - 32.8 pgMCHC 31.6 31.6 - 35.1 g/dLRDW-SD 48.3 39.0 - 49.9 fLRDW-CV 16.6 (*) 12.0 - 15.5 %PLT 387 (*) 166 - 358 10*3/?LMPV 9.6 9.5 - 12.9 fLNRBC/100 WBC 0.0 0.0 - 10.0 /100 WBCsNRBC x10^3 <0.01 10*3/?LGRAN MAT (NEUT) % 59.2 %IMM GRAN % 0.80 %LYMPH % 27.3 %MONO % 11.0 %EOS % 1.4 %BASO % 0.3 %GRAN MAT x10^3(ANC) 4.69 1.88 - 7.09 10*3/uLIMM GRAN x10^3 0.06 0.00 - 0.06 10*3/uLLYMPH x10^3 2.16 1.32 - 3.29 10*3/uLMONO x10^3 0.87 0.33 - 0.92 10*3/uLEOS x10^3 0.11 0.03 - 0.39 10*3/uLBASO x10^3 <0.03 0.01 - 0.07 10*3/uLCOMP. METABOLIC PANEL (91181) - AbnormalNA 138 135 - 145 mmol/LK 3.3 (*) 3.5 - 5.0 mmol/LCL 109 (*) 98 - 108 mmol/LCO2 TOTAL 20 (*) 23 - 31 mmol/LAGAP 9 2 - 16BUN 11 7 - 23 mg/dLGLUCOSE 110 70 - 110 mg/dLCREATININE 0.81 0.50 - 1.04 mg/dLTOTAL BILI 0.2 0.1 - 1.1 mg/dLCALCIUM 8.6 8.6 - 10.6 mg/Jesus PROTEIN 7.6 6.3 - 8.2 g/dLALBUMIN 4.0 3.5 - 5.0 g/dLALK PHOS 109 34 - 122 U/LALTv 29 5 - 35 U/LAST(SGOT) 30 13 - 40 U/LeGFR 89.7 mL/min/1.87j2KVLJVNLOWX - AbnormalAPPEARANCE Hazy (*) ClearCOLOR Yellow YellowPH 6.0 4.8 - 8.0SP GRAVITY 1.009 1.003 - 1.030GLU U QUAL Normal NormalBLOOD 2+ (*) NegativeKETONES Negative NegativePROTEIN Negative NegativeUROBILIN Normal NormalBILIRUBIN Negative NegativeNITRITE Negative NegativeLEUK CHARLES 25/uL (*) NegativeRBC/HPF 13 (*) 0 - 3 HPFWBC/HPF 1 0 - 5 HPFBACTERIA Few (*) NegativeMUCOUS Slight (*) Negative LPFSQ EPITH 6 HPFMAGNESIUM - NormalMAGNESIUM 2.2 1.7 - 2.4 mg/dLPOCT TEST - NormalPOCT PREG NegativeOn board controls acceptable with C Line YesPOCT PREG LOT # [id number] PREG TEST DATE [id number]:If EKG completed, see Procedure Note.Orders and Treatments:Orders Placed This EncounterProceduresCBC WITH DIFFCOMP. METABOLIC PANEL (11834)MagnesiumURINALYSISPOCT TESTOrders Placed This EncounterMedicationsNaCl 0.9% (NS) bolus infusion 1,000 mLproCHLORperazine (COMPAZINE) 10 mg in NaCl 0.9% (NS) piggybackfamotidine (PEPCID (PF)) injection 20 mgdicyclomine (BENTYL) tablet 20 mgdicyclomine 20 mg tabletFirst Provider Eval:ED EventsDate/Time Event User Dltowrtm31/28/231644 Medical Screening Begins SUPRIYA PFEIFFER DO --07/13/231644 First Provider Evaluation SUPRIYA PFEIFFER DO --ED COURSEDiagnosis/Impression as of 07/13/231819Nausea and vomiting, unspecified vomiting typeProcedures:ProceduresMDM:Medica l Decision MakingThe patient presents from home for evaluation for nausea and vomiting since Monday. Today is . No diarrhea. No sick contacts. No bad food exposure. No recent trips or travel. She thought she might have had a bladder or kidney infection so decided to take some penicillin she had from [place]. No blood in her vomit. She has had her gallbladder removed in the past.Vital signs are stable in the ER.Her abdomen is soft and nontender on examination.Will give the patient IV fluids as well as antiemetics.Will check laboratory studies.Anticipate dc home later when he can tolerate by mouth.1819 -the patient is doing well here in the ER.Her nausea and vomiting has resolved after the medications given here in the ER.She was given a p.o. challenge and able to tolerate by mouth without difficulty.Her laboratory studies are unremarkable.She remained stable here in the ER and is okay for discharge home with PCP follow-up.Problems Addressed:Nausea and vomiting, unspecified vomiting type: acute illness or injuryAmount and/or Complexity of Data ReviewedLabs: ordered. Decision-making details documented in ED Course.RiskPrescription drug management.Flowsheet Documentation:Scoring Tools:No data recordedDisposition/Condition:ED DispositionED DispositionDisch - HomeConditionStableComment--Dischar ge Medications:Patient's MedicationsSTART taking these medicationsDICYCLOMINE 20 MG TABLET Take 1 tablet by mouth every 6 (six) hours as needed for Abdominal pain.CONTINUE taking these medications which have NOT CHANGEDNo medications on fileSTART taking Modified Medications as PrescribedNo medications on fileSTOP taking these medicationsAZITHROMYCIN 250 MG TABLET Take 1 tablet by mouth daily. Take 500 mg day 1, then 250 mg days 2 to 5.BENZONATATE 100 MG CAPSULE Take 1 capsule by mouth 3 (three) times daily as needed for Cough.OXYBUTYNIN XL 5 MG 24 HR TABLET Take 1 tablet by mouth in the morning.PHENAZOPYRIDINE 200 MG TABLET Take 1 tablet by mouth in the morning and 1 tablet at noon and 1 tablet in the evening.PROMETHAZINE 25 MG TABLET Take 1 tablet by mouth every 6 (six) hours as needed for Nausea and Vomiting (N/V).PROMETHAZINE 25 MG TABLET Take 1 tablet by mouth every 6 (six) hours as needed for Nausea and Vomiting (N/V) for up to 10 doses.SULFAMETHOXAZOLE-TRIMETHOPRIM 800-160 MG PER TABLET Take 1 tablet by mouth every 12 (twelve) hours.Follow-up:Electronically signed by:Supriya Pfeiffer DO07/13/23 1820 21960-8Mthrwezni Emergency department GryfBD7809-87-93R98:20:54Physician Emergency department NoteTXT1.2.840.598117.1.13.104.2.7. 2.432315|[id number] for patient ofiy51973-1Ihdbjaqra department NoteLNNARRATIVEFormatted C-CDA narrative textUT[address] Yg[id number] 8PGCVYOJWXYTRAUUTFIAMQV3609-70-86S5 8:20:541.2.840.786430.1.72.3.15|1.2 .840.308513.1.13.104.2.7.2.727879_1 [id number] [facility]
[2023-10-06 11:07] LABS: Absolute Basophils 0.1 K/uL (0-0.5); Absolute Lymphocytes (CBC) 0.9 K/uL (0.7-4.9); Absolute Monocytes 1.1 K/uL (0.1-1.3); Absolute Neutrophil 16.5 K/uL (1.8-8.0); Basophils % 0.3 % (0-1.3); Eosinophils % 0.2 % (0-4.4); Hematocrit 35.7 % (36.0-45.0); Hemoglobin 11.5 g/dL (12.0-15.0); Lymphocytes % 4.9 % (15.3-44.8); MCH 25.1 pg (27.0-35.0); MCHC 32.2 g/dL (32.0-36.0); MCV 77.8 fL (80-100); MPV 7.1 fL (7.6-11.3); Monocytes % 5.7 % (3.3-12.3); Neutrophils % 88.9 % (41.7-73.7); Nucleated Red Blood Cells % 0.1 % (0-0); Platelets 398 thou/uL (152-406); RBC Red Blood Cell Count 4.58 M/uL (3.86-4.86); Red Cell Distribution Width 17.8 % (12.1-15.2)
[2023-10-06 11:13] LABS: Specific Gravity 1.016 (1.005-1.030); Sqamous Epithelial 20-50 /HPF (None Seen); Urine Bacteria >50 /HPF (<20); Urine Bilirubin NEGATIVE (Negative); Urine Blood 3+ (OVER) (Negative); Urine Clarity Extremely Turbid (Clear); Urine Color Light-Orange (Yellow); Urine Culture Reflex Order NOT NEEDED; Urine Glucose NEGATIVE (Negative); Urine Ketones NEGATIVE (Negative); Urine Microscopic Reflex YN ORDER UMIC; Urine Mucus 4+ /HPF (None Seen); Urine Nitrite NEGATIVE (Negative); Urine Protein 2+ (Negative); Urine RBC >50 /HPF (None Seen); Urine Urobilinogen Normal (Normal); Urine WBC >50 /HPF (<5); Urine pH 5.5 (5.0-7.0)
--- NOTE | 2023-10-06 11:13 | RAD REPORT ---
EXAM DESCRIPTION: CT - Stone Protocol - 10/06/2023 11:03 am CLINICAL HISTORY: Abdominal pain. COMPARISON: July 2023 TECHNIQUE: Computed axial tomography of the abdomen pelvis was obtained without oral or IV contrast. Lack of IV and oral contrast limits evaluation of solid organs, appendix, bowel, and vessels. De Dios l reformatted images were obtained and reviewed. All CT scans are performed using dose optimization technique as appropriate and may include automated exposure control or mA/KV adjustment according to patient size. FINDINGS: A right nephrectomy. Tiny left renal calculi. Mild to moderate left hydronephrosis. Left ureter is dilated. 7 millimeter c alculus left UVJ. Cholecystectomy The liver, spleen, pancreas and adrenals appear grossly normal There is no evidence of diverticulitis. Normal appendix Small uterine fibroids IMPRESSION: 7 millimeter calculus left UVJ resulting in mild to moderate left hydronephrosis
[2023-10-06 11:15] LABS: Specific Gravity 1.016 (1.005-1.030)
[2023-10-06 11:33] LABS: Albumin 3.5 g/dL (3.4-5.0); Albumin/Globulin Ratio 0.8 (1.1-1.8); Anion Gap 10.1 mEq/L (5.0-15.0); Bilirubin Total 0.2 mg/dL (0.2-1.0); Globulin 4.2 g/dL (2.3-3.5); Potassium 4.1 mEq/L (3.5-5.1); Protein, Total 7.7 g/dL (6.4-8.2)
[2023-10-06 12:33] LABS: White Blood Cell Scan DIFF (OK)
[2023-10-06 12:34] LABS: Blood Morphology Comment NOT SEEN (NOT SEEN); Platelet Estimate ADEQ
[2023-10-06 12:36] LABS: Lymphocytes 10 % (15-42); Monocytes 11 % (0-10); Segmented Neutrophils 79 % (40-80)
[2023-10-06 12:37] LABS: Differential Total Cells Count 100
--- NOTE | 2023-10-06 13:04 | EDPHYS ---
Physician Documentation [facility] Name: Yissel Carmona Age: 47 yrs Sex: Female : 1975 Arrival Date: 10/06/2023 Time: 10:25 Bed 7 Private MD: Yasmani Bailey HPI: 10/05 10:51 This 47 yrs old Female presents to ER via Ambulatory with complaints of stephanie Abdominal Pain, Back Pain. 10:51 The patient presents with pain that is acute, with no known mechanism of injury. The stephanie symptoms are located in the low back, left low back and left mid back. Onset: The symptoms/episode began/occurred 1 day(s) ago. The pain radiates to the left low back and left mid back. Associated signs and symptoms: The patient has no apparent associated signs or symptoms. The problem was sustained from unknown cause. Modifying factors: The patient symptoms are alleviated by nothing, the patient symptoms are aggravated by nothing. Severity of symptoms: At their worst the symptoms were mild, moderate. The patient has experienced similar episodes in the past, a few times. 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 - Social history:: Smoking status: Patient denies any tobacco usage or history of. - Family history:: not pertinent. ROS: 10:51 Constitutional: Negative for fever, chills, and weight loss, Eyes: Negative for injury, stephanie pain, redness, and discharge, ENT: Negative for injury, pain, and discharge, Neck: Negative for injury, pain, and swelling, Cardiovascular: Negative for chest pain, palpitations, and edema, Respiratory: Negative for shortness of breath, cough, wheezing, and pleuritic chest pain, Back: Negative for injury and pain, : Negative for injury, bleeding, discharge, and swelling, MS/Extremity: Negative for injury and deformity, Skin: Negative for injury, rash, and discoloration, Neuro: Negative for headache, weakness, numbness, tingling, and seizure, Psych: Negative for depression, anxiety, suicide ideation, homicidal ideation, and hallucinations, Allergy/Immunology: Negative for hives, rash, and allergies, Endocrine: Negative for neck swelling, polydipsia, polyuria, polyphagia, and marked weight changes, Hematologic/Lymphatic: Negative for swollen nodes, abnormal bleeding, and unusual bruising, 10:51 Abdomen/GI: Positive for abdominal pain, nausea, abdominal cramps, of the posterior aspect of left lateral abdomen, anterior aspect of left lateral abdomen, left upper quadrant and left lower quadrant, Exam: 10:51 Constitutional: This is a well developed, well nourished patient who is awake, alert, stephanie and in no acute distress. Head/Face: Normocephalic, atraumatic. Eyes: Pupils equal round and reactive to light, extra-ocular motions intact. Lids and lashes normal. Conjunctiva and sclera are non-icteric and not injected. Cornea within normal limits. Periorbital areas with no swelling, redness, or edema. ENT: Nares patent. No nasal discharge, no septal abnormalities noted. Tympanic membranes are normal and external auditory canals are clear. Oropharynx with no redness, swelling, or masses, exudates, or evidence of obstruction, uvula midline. Mucous membranes moist. Neck: Trachea midline, no thyromegaly or masses palpated, and no cervical lymphadenopathy. Supple, full range of motion without nuchal rigidity, or vertebral point tenderness. No Meningismus. Chest/axilla: Normal chest wall appearance and motion. Nontender with no deformity. No lesions are appreciated. Cardiovascular: Regular rate and rhythm with a normal S1 and S2. No gallops, murmurs, or rubs. Normal PMI, no JVD. No pulse deficits. Respiratory: Lungs have equal breath sounds bilaterally, clear to auscultation and percussion. No rales, rhonchi or wheezes noted. No increased work of breathing, no retractions or nasal flaring. Skin: Warm, dry with normal turgor. Normal color with no rashes, no lesions, and no evidence of cellulitis. MS/ Extremity: Pulses equal, no cyanosis. Neurovascular intact. Full, normal range of motion. Neuro: Awake and alert, GCS 15, oriented to person, place, time, and situation. Cranial nerves II-XII grossly intact. Motor strength 5/5 in all extremities. Sensory grossly intact. Cerebellar exam normal. Normal gait. Psych: Awake, alert, with orientation to person, place and time. Behavior, mood, and affect are within normal limits. 10:51 Abdomen/GI: Inspection: abdomen appears normal, Bowel sounds: normal, Palpation: mild abdominal tenderness, moderate abdominal tenderness, in the suprapubic area, Liver: no appreciated palpable abnormalities, Hernia: not appreciated, 10:51 Skin: Appearance: normal except for affected area, Color: normal in color, Temperature: normal temperature, Moisture: normal moisture, petechiae, not noted, no rash present. Vital Signs: 10:31 BP 146 / 86; Pulse 123; Resp 18; Temp 98.2(O); Pulse Ox 100% on R/A; Weight 88.45 kg; iw Height 5 ft. 2 in. ; Pain 10/10; 11:10 BP 142 / 89; Pulse 122; Resp 18; Pulse Ox 99% on R/A; hb 12:00 BP 134 / 85; Pulse 117; Resp 17; Pulse Ox 96% on R/A; hb 14:06 BP 146 / 80; Pulse 105; Resp 18; Pulse Ox 100% on R/A; mb9 14:57 BP 135 / 85; Pulse 95; Resp 16; Pulse Ox 100% on R/A; mb9 10:31 Body Mass Index 35.67 (88.45 kg, 157.48 cm) iw 10:31 Pain Scale: Adult iw MDM: 10:30 Patient medically screened. stephanie 10:54 Differential diagnosis: chronic back pain, Fatigue Obesity Pyelonephritis stephanie Renal Infarction ruptured disc, Scoliosis sprain, Ureterolithiasis. Data reviewed: vital signs, nurses notes, lab test result(s), radiologic studies, plain films. Consideration of Admission/Observation Escalation of care including admission/observation considered. I considered the following discharge prescriptions or medication management in the emergency department Medications were administered in the Emergency Department. See MAR. Independent interpretation of the following test(s) in the Emergency Department CT Scan: My interpretation is ct stone. Test considered but Not performed: EKG: no ekg. Historians other than the Patient: pt well informed. Care significantly affected by the following chronic conditions: solitary kidney, migraine. Counseling: I had a detailed discussion with the patient and/or guardian regarding the historical points, exam findings, and any diagnostic results supporting the discharge/admit diagnosis, lab results, radiology results. 10/05 10:51 Order name: CBC with Diff; Complete Time: 12:55 [facility] 10/05 10:51 Order name: CMP; Complete Time: 12:55 [facility] 10/05 10:51 Order name: Lipase; Complete Time: 12:55 [facility] 10/05 10:51 Order name: Test, Urine; Complete Time: 12:55 [facility] 10/05 10:51 Order name: Urinalysis w/ reflexes; Complete Time: 12:55 [facility] 10/05 11:17 Order name: CBC Smear Scan; Complete Time: 12:55 [facility] 10/05 12:36 Order name: Manual Differential; Complete Time: 12:55 [facility] 10/05 13:01 Order name: Blood Culture Adult (2) [facility] 10/05 13:01 Order name: Lactate w/ 2H reflex if indic. [facility] 10/05 10:51 Order name: CT Stone Protocol; Complete Time: 12:55 [facility] 10/05 10:51 Order name: IV Saline Lock; Complete Time: 11:01 [facility] 10/05 10:51 Order name: Labs collected and sent; Complete Time: 11:01 [facility] 10/05 13:35 Order name: NPO; Complete Time: 13:39 [facility] Administered Medications: 11:05 Drug: Promethazine IVP 12.5 mg IVP once Route: IVP; Site: right antecubital; mb9 11:30 Follow up: Response: No adverse reaction hb 11:08 Drug: morphine IVP or IV 4 mg IVP once over 4 mins Route: IVP; Infused Over: 4 mins; mb9 Site: right antecubital; 11:30 Follow up: Response: No adverse reaction hb 11:08 Drug: NS 0.9% IV 1000 ml IV at 1 bolus Per protocol; 1000 mL bolus Route: IV; Rate: 1 mb9 bolus; Site: right antecubital; 12:00 Follow up: Response: No adverse reaction; IV Status: Completed infusion; IV Intake: hb 1000ml 12:26 Drug: Promethazine IVP 12.5 mg IVP once Route: IVP; Site: right antecubital; hb 13:09 Follow up: Response: No adverse reaction mb9 12:26 Drug: morphine IVP or IV 4 mg IVP once over 4 mins Route: IVP; Infused Over: 4 mins; hb Site: right antecubital; 13:09 Follow up: Response: No adverse reaction mb9 13:34 Drug: Piperacillin-Tazobactam IVPB 3.375 grams IVPB once over 60 mins; (mix in NS 100 mb9 mL) Route: IVPB; Infused Over: 60 mins; Site: right antecubital; 14:22 Follow up: Response: No adverse reaction; IV Status: Completed infusion mb9 13:34 Drug: NS 0.9% IV 1000 ml IV at 1 bolus Per protocol; 1000 mL bolus Route: IV; Rate: 1 mb9 bolus; Site: right antecubital; 14:45 Follow up: Response: No adverse reaction; IV Status: Completed infusion mb9 Disposition Summary: 10/06/23 13:04 Transfer Ordered Notes: Transfer Location: [facility] stephanie Reason: Higher level of care stephanie Condition: Fair stephanie Problem: new stephanie Symptoms: have improved stephanie Accepting Physician: to [facility] , uro stat(10/06/23 15:11) mb9 Diagnosis - Acute kidney failure, unspecified stephanie - Elevated white blood cell count stephanie - Abdominal tenderness stephanie - Hydronephrosis with renal and ureteral calculous obstruction - solitary left stephanie kidney, 7 mm uvj(10/06/23 13:04) Forms: - Medication Reconciliation Form stephanie - SBAR form stephanie Signatures: Dispatcher [employer] Yasmani Salinas MD MD cha Williams, Irene, RN RN Latrice Villalobos RN RN hb Breneman, Mary Beth RN RN mb9 Corrections: (The following items were deleted from the chart) 13:04 13:04 to [facility] , uro stat stephanie stephanie 13:04 13:04 Hydronephrosis with renal and ureteral calculous obstruction - solitary left stephanie kidney stephanie 15:11 13:04 to [facility] , uro stat stephanie mb9
--- NOTE | 2023-10-06 13:04 | ER ---
[facility]'s [facility] Name: Yissel Carmona Age: 47 yrs Sex: Female : 1975 Arrival Date: 10/06/2023 Time: 10:25 Bed 7 Private MD: Diagnosis: Acute kidney failure, unspecified;Hydronephrosis with renal and ureteral calculous obstruction-solitary left kidney, 7 mm uvj;Elevated white blood cell count;Abdominal tenderness Presentation: 10/05 10:31 Chief complaint: Patient states: lower back pain yesterday and now my left lower back iw hurts and lower abd pain, feels like kidney stone, + urinary frequency this morning. Coronavirus screen: Ebola Screen: Patient negative for fever greater than or equal to 101.5 degrees Fahrenheit, and additional compatible Ebola Virus Disease symptoms Patient denies exposure to infectious person. Patient denies travel to an Ebola-affected area in the 21 days before illness onset. No symptoms or risks identified at this time. 10:31 Method Of Arrival: Ambulatory iw 10:31 Acuity: NEVAEH 3 iw 10:33 Initial Sepsis Screen: Does the patient meet any 2 criteria? HR > 90 bpm. Does the iw patient have a suspected source of infection?. Risk Assessment: Do you want to hurt yourself or someone else?. Onset of symptoms was October 05, 2023. 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 - Social history:: Smoking status: Patient denies any tobacco usage or history of. - Family history:: not pertinent. Screenin:52 [facility] ED Fall Risk Assessment (Adult) History of falling in the last 3 months, mb9 including since admission No falls in past 3 months (0 pts) Confusion or Disorientation No (0 pts) Intoxicated or Sedated No (0 pts) Impaired Gait No (0 pts) Mobility Assist Device Used No (0 pt) Altered Elimination No (0 pt) Score/Fall Risk Level 0 - 2 = Low Risk Oriented to surroundings, Maintained a safe environment, Educated pt \T\ family on fall prevention, incl call for assistance when getting out of bed. Abuse screen: Denies threats or abuse. Nutritional screening: No deficits noted. Tuberculosis screening: No symptoms or risk factors identified. Assessment: 11:02 General: Appears in no apparent distress. Behavior is calm, cooperative. Pain: mb9 Complains of pain in back Pain radiates to left lower quadrant and left upper quadrant. Neuro: Chu Agitation-Sedation Scale (RASS): 0 - Alert and Calm Level of Consciousness is awake, alert, obeys commands, Oriented to person, place, time, situation, Appropriate for age. Cardiovascular: Patient's skin is warm and dry. Respiratory: Airway is patent Respiratory effort is even, unlabored, Respiratory pattern is regular, symmetrical. GI: Abdomen is round non-distended, Bowel sounds present X 4 quads. Abd is soft and non tender X 4 quads. Reports nausea. : Reports urinary frequency. EENT: No signs and/or symptoms were reported regarding the EENT system. Derm: Skin is pink, warm \T\ dry. Musculoskeletal: Range of motion: intact in all extremities. 12:03 Reassessment: Patient appears in no apparent distress at this time. Patient and/or hb family updated on plan of care and expected duration. Pain level reassessed. Patient is alert, oriented x 3, equal unlabored respirations, skin warm/dry/pink. 13:05 Reassessment: No changes from previously documented assessment. Patient and/or family mb9 updated on plan of care and expected duration. Pain level reassessed. Patient is alert, oriented x 3, equal unlabored respirations, skin warm/dry/pink. 14:06 Reassessment: No changes from previously documented assessment. Patient and/or family mb9 updated on plan of care and expected duration. Pain level reassessed. Patient is alert, oriented x 3, equal unlabored respirations, skin warm/dry/pink. 14:57 Reassessment: No changes from previously documented assessment. Patient and/or family mb9 updated on plan of care and expected duration. Pain level reassessed. Patient is alert, oriented x 3, equal unlabored respirations, skin warm/dry/pink. 14:57 Reassessment: Report given to [facility]. mb9 Vital Signs: 10:31 BP 146 / 86; Pulse 123; Resp 18; Temp 98.2(O); Pulse Ox 100% on R/A; Weight 88.45 kg; iw Height 5 ft. 2 in. ; Pain 10/10; 11:10 BP 142 / 89; Pulse 122; Resp 18; Pulse Ox 99% on R/A; hb 12:00 BP 134 / 85; Pulse 117; Resp 17; Pulse Ox 96% on R/A; hb 14:06 BP 146 / 80; Pulse 105; Resp 18; Pulse Ox 100% on R/A; mb9 14:57 BP 135 / 85; Pulse 95; Resp 16; Pulse Ox 100% on R/A; mb9 10:31 Body Mass Index 35.67 (88.45 kg, 157.48 cm) iw 10:31 Pain Scale: Adult iw ED Course: 10:27 Patient arrived in ED. rg4 10:30 Yasmani Calvillo MD is Attending Physician. stephanie 10:33 Triage completed. iw 10:33 Arm band placed on. iw 10:43 Amalia Samayoa, TORRES is Primary Nurse. mb9 10:52 Placed in gown. Bed in low position. Call light in reach. Side rails up X 1. Client mb9 placed on continuous cardiac and pulse oximetry monitoring. NIBP monitoring applied. 11:[address] via wheelchair. hb 11:01 CBC with Diff Sent. hb 11:01 CMP Sent. hb 11:01 Lipase Sent. hb 11:01 Test, Urine Sent. hb 11:01 Urinalysis w/ reflexes Sent. hb 11:01 Initial lab(s) drawn, by ED staff, sent to lab. Urine collected: clean catch specimen, hb cloudy. 11:03 CT Stone Protocol In Process Unspecified. EDMS 11:03 Inserted saline lock: 20 gauge in right antecubital area, using aseptic technique. mb9 Blood collected. 11:03 No provider procedures requiring assistance completed. mb9 11:04 Pulse ox on. NIBP on. Door closed. Noise minimized. Warm blanket given. mb9 11:04 Patient maintains SpO2 saturation greater than 95% on room air. Thermoregulation: warm mb9 blanket given to patient. 11:08 Patient moved back from CT. hb 12:10 Patient requests pain medication. mb9 13:02 initiated a transfer with Clayton Bell Rn from the [facility]. eb 13:[address] Scott the urologist investigations manager for [facility] with Dr. Calvillo for patient eb transfer consultation. 13:34 Blood Culture Adult (2) Sent. mb9 13:42 connected the hospitalist investigations manager for [facility] with Dr. Calvillo for patient eb transfer consutation. 13:44 administrative approval given by Clayton Bell Rn/ patient has been accepted to [facility] room 1634/ Dr. Jeremias Moreira has accepted the patient in transfer/ report to be called to [phone]. 14:24 Patient transferred, IV remains in place. mb9 14:56 Provided Education on: need for transfer. mb9 23:02 [place] at [facility] called and notified that all 4 blood culture bottles came back positive cm10 for Gram Negative Rods. Per Cameron at lab, this is preliminary results. Administered Medications: 11:05 Drug: Promethazine IVP 12.5 mg IVP once Route: IVP; Site: right antecubital; mb9 11:30 Follow up: Response: No adverse reaction hb 11:08 Drug: morphine IVP or IV 4 mg IVP once over 4 mins Route: IVP; Infused Over: 4 mins; mb9 Site: right antecubital; 11:30 Follow up: Response: No adverse reaction hb 11:08 Drug: NS 0.9% IV 1000 ml IV at 1 bolus Per protocol; 1000 mL bolus Route: IV; Rate: 1 mb9 bolus; Site: right antecubital; 12:00 Follow up: Response: No adverse reaction; IV Status: Completed infusion; IV Intake: hb 1000ml 12:26 Drug: Promethazine IVP 12.5 mg IVP once Route: IVP; Site: right antecubital; hb 13:09 Follow up: Response: No adverse reaction mb9 12:26 Drug: morphine IVP or IV 4 mg IVP once over 4 mins Route: IVP; Infused Over: 4 mins; hb Site: right antecubital; 13:09 Follow up: Response: No adverse reaction mb9 13:34 Drug: Piperacillin-Tazobactam IVPB 3.375 grams IVPB once over 60 mins; (mix in NS 100 mb9 mL) Route: IVPB; Infused Over: 60 mins; Site: right antecubital; 14:22 Follow up: Response: No adverse reaction; IV Status: Completed infusion mb9 13:34 Drug: NS 0.9% IV 1000 ml IV at 1 bolus Per protocol; 1000 mL bolus Route: IV; Rate: 1 mb9 bolus; Site: right antecubital; 14:45 Follow up: Response: No adverse reaction; IV Status: Completed infusion mb9 Medication: 11:01 VIS not applicable for this client. hb Intake: 12:00 IV: 1000ml; Total: 1000ml. hb Outcome: 13:04 ER care complete, transfer ordered by . stephanie 14:30 Transferred to [facility], [facility], Transfer form completed. mb9 14:30 Transferred Note: report given to transferring nurse TORRES Coulter 14:30 Condition: stable 14:30 Instructed on the need for transfer, 15:11 Patient left the ED. mb9 Signatures: Dispatcher [employer] EDMS Yasmani Calvillo MD MD cha Williams, Irene, RN TORRES iw Latrice Villalobos RN RN hb Garcia, Rubi rg4 Nilam Kaufman Mary Beth, RN RN mb9 Linda Mead, RN RN cm10 Corrections: (The following items were deleted from the chart) 10:34 10:31 BP 146 / 86; Pulse 123bpm; Resp 18bpm; Pulse Ox 100% RA; 88.45 kg; Height 5 ft. 2 iw in.; BMI: 35.6; Pain 04/25, Adult; iw
[2023-10-06 15:27] VITALS: BP 135/85; TEMP 98.2; O2SAT 100
== END ==
LOC: ER 10:25
DX: N13.2 Hydronephrosis with renal and ureteral calculous obstruction (principal); N17.9 Acute kidney failure, unspecified; D72.829 Elevated white blood cell count, unspecified; R10.819 Abdominal tenderness, unspecified site
CPT/HCPCS: 36415; 74176; 76377; 80053; 81001; 81025; 83605; 83690; 85025; 87040; 87077; 87186; 87205; 96361; 96365; 96375; 99285; J2543; J2550; J7030

== ENCOUNTER 2024-04-16 03:42 | Emergency (ER) | payer SELFPAY ==
[2024-04-16] MEDS ORDERED: NA CHLORIDE 0.9% 1,000 ML ONE (04:31)
[2024-04-16] MEDS ORDERED: droPERidol 5 MG/2 ML VIAL ONE (04:31)
[2024-04-16] MEDS ORDERED: ACETAMINOPHEN 500 MG TAB ONE (04:31)
[2024-04-16] MEDS ORDERED: dexAMETHasone 10 MG/ML VIAL ONE (04:31)
[2024-04-16] MEDS ORDERED: PROMETHAZINE INJ 25 MG/ML AMP ONE (04:31)
--- NOTE | 2024-04-16 05:37 | ER ---
Nurse's Notes [facility] Name: Yissel Carmona Age: 48 yrs Sex: Female : 1975 Arrival Date: 04/16/2024 Time: 03:42 Bed 7 Private MD: Diagnosis: Migraine without aura, not intractable Presentation: 04/16 04:01 Chief complaint: Patient states: migraine since 1 am. vc1 04:03 Coronavirus screen: Client denies travel out of the [place] in the last 14 days. At this vc1 time, the client does not indicate any symptoms associated with coronavirus-19. Ebola Screen: Patient negative for fever greater than or equal to 101.5 degrees Fahrenheit, and additional compatible Ebola Virus Disease symptoms Patient denies exposure to infectious person. Patient denies travel to an Ebola-affected area in the 21 days before illness onset. No symptoms or risks identified at this time. Initial Sepsis Screen: Does the patient meet any 2 criteria? No. Patient's initial sepsis screen is negative. Does the patient have a suspected source of infection? No. Patient's initial sepsis screen is negative. Risk Assessment: Do you want to hurt yourself or someone else? Patient reports no desire to harm self or others. Onset of symptoms was April 16, 2024. Care prior to arrival: None. Activity prior to arrival: None. Mechanism of Injury: No Mechanism of Injury. Transition of care: patient was not received from another setting of care. 04:03 Method Of Arrival: Ambulatory vc1 04:03 Acuity: NEVAEH 3 vc1 Triage Assessment: 04:09 General: Appears in no apparent distress. uncomfortable, Behavior is calm, cooperative, vc1 appropriate for age. Pain: Complains of pain in forehead Pain does not radiate. Pain currently is 10 out of 10 on a pain scale. Quality of pain is described as sharp. EENT: No deficits noted. No signs and/or symptoms were reported regarding the EENT system. Neuro: Level of Consciousness is awake, alert, obeys commands. Neuro: Reports headache frontal area. Cardiovascular: Capillary refill < 3 seconds Patient's skin is warm and dry. Respiratory: Airway is patent Respiratory effort is even, unlabored, Respiratory pattern is regular, symmetrical. GI: Reports nausea, vomiting. : No deficits noted. No signs and/or symptoms were reported regarding the genitourinary system. Derm: Skin is intact, is healthy with good turgor, Skin is dry, Skin is normal, Skin temperature is warm. Musculoskeletal: No deficits noted. No signs and/or symptoms reported regarding the musculoskeletal system. 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 - Infectious Disease History:: Denies. - Social history:: Smoking status: Patient denies any tobacco usage or history of. - Family history:: not pertinent. Screenin:07 [facility] ED Fall Risk Assessment (Adult) History of falling in the last 3 months, vc1 including since admission No falls in past 3 months (0 pts) Confusion or Disorientation No (0 pts) Intoxicated or Sedated No (0 pts) Impaired Gait No (0 pts) Mobility Assist Device Used No (0 pt) Altered Elimination No (0 pt) Score/Fall Risk Level 0 - 2 = Low Risk Oriented to surroundings, Maintained a safe environment, Educated pt \T\ family on fall prevention, incl call for assistance when getting out of bed. Abuse screen: Denies threats or abuse. Nutritional screening: No deficits noted. Tuberculosis screening: No symptoms or risk factors identified. Assessment: 05:40 Reassessment: Patient appears in no apparent distress at this time. Patient and/or bm8 family updated on plan of care and expected duration. Pain level reassessed. Patient is alert, oriented x 3, equal unlabored respirations, skin warm/dry/pink. Patient denies pain at this time. Patient states feeling better. Patient states symptoms have improved. General: Appears in no apparent distress. comfortable, Behavior is calm, cooperative, appropriate for age. Pain: Denies pain. Neuro: No deficits noted. Level of Consciousness is awake, alert, obeys commands, Oriented to person, place, time, situation, Appropriate for age. Cardiovascular: No deficits noted. Denies chest pain, Capillary refill < 3 seconds in bilateral fingers Patient's skin is warm and dry. Respiratory: Airway is patent Respiratory effort is even, unlabored, Respiratory pattern is regular, symmetrical, Breath sounds are clear bilaterally. GI: Patient currently denies abdominal pain, nausea. : No signs and/or symptoms were reported regarding the genitourinary system. EENT: No signs and/or symptoms were reported regarding the EENT system. Derm: No signs and/or symptoms reported regarding the dermatologic system. Musculoskeletal: No signs and/or symptoms reported regarding the musculoskeletal system. Vital Signs: 04:03 BP 152 / 98; Pulse 113; Resp 18; Temp 98.3; Pulse Ox 100% ; Weight 90.72 kg; Height 5 vc1 ft. 2 in. ; Pain 10/10; 05:40 BP 135 / 92; Pulse 101; Resp 20; Temp 98.3; Pulse Ox 95% on R/A; Pain 0/10; bm8 04:03 Body Mass Index 36.58 (90.72 kg, 157.48 cm) vc1 04:03 Pain Scale: Adult vc1 05:40 Pain Scale: Adult bm8 Michelle Coma Score: 05:40 Eye Response: spontaneous(4). Motor Response: obeys commands(6). Verbal Response: bm8 oriented(5). Total: 15. ED Course: 03:44 Patient arrived in ED. gm2 03:45 James Lewis MD is Attending Physician. rt 03:57 Josef Gutierrez, RN is Primary Nurse. bm8 04:06 Triage completed. vc1 04:07 Arm band placed on right wrist. vc1 04:08 Patient has correct armband on for positive identification. Placed in gown. Bed in low vc1 position. Call light in reach. Pulse ox on. NIBP on. 04:51 No provider procedures requiring assistance completed. Inserted saline lock: 20 gauge bm8 in right antecubital area, using aseptic technique. Blood collected. Flushed with 10 mL NS. 05:40 Provided Education on: post er care. bm8 05:40 IV discontinued, intact, bleeding controlled, No redness/swelling at site. Pressure bm8 dressing applied. Administered Medications: 04:50 Drug: Promethazine IVP 12.5 mg IVP once Route: IVP; Site: right antecubital; bm8 05:46 Follow up: Response: No adverse reaction bm8 04:50 Drug: Decadron - Dexamethasone IVP 10 mg IVP once Route: IVP; Site: right antecubital; bm8 05:46 Follow up: Response: No adverse reaction bm8 04:50 Drug: NS 0.9% IV 1000 ml IV at 1 bolus Per protocol; 1000 mL bolus Route: IV; Rate: 1 bm8 bolus; Site: right antecubital; 05:45 Follow up: Response: No adverse reaction; IV Status: Completed infusion; IV Intake: bm8 1000ml 04:50 Drug: Acetaminophen PO 1000 mg PO once Route: PO; bm8 05:45 Follow up: Response: No adverse reaction bm8 04:51 Drug: Droperidol IVP 1.25 mg IVP once Route: IVP; Site: right antecubital; bm8 05:46 Follow up: Response: No adverse reaction bm8 Medication: 04:08 VIS not applicable for this client. vc1 Intake: 05:45 IV: 1000ml; Total: 1000ml. bm8 Outcome: 05:37 Discharge ordered by . rt 05:40 Discharged to home ambulatory, bm8 05:40 Condition: stable 05:40 Discharge instructions given to patient, Instructed on discharge instructions, follow up and referral plans. Demonstrated understanding of instructions, follow-up care, medications, 05:50 Patient left the ED. bm8 Signatures: Tiara Mcnair RN RN vc1 James Lewis MD MD rt Anyi Landa gm2 Josef Gutierrez RN RN bm8
--- NOTE | 2024-04-16 05:37 | EDPHYS ---
Physician Documentation [facility] Name: Yissel Carmona Age: 48 yrs Sex: Female : 1975 Arrival Date: 04/16/2024 Time: 03:42 Bed 7 Private MD: ED Physician James Lewis HPI: 04/16 04:24 This 48 yrs old Female presents to ER via Ambulatory with complaints of rt Nausea/Vomiting, Headache. 04:24 Patient with history of migraine presents to the ED with a frontal migraine similar to rt previous migraines. Patient was recently taken off of her Topamax because of kidney stones. The patient reports nausea, photophobia, phonophobia. Denies other acute complaints at this time, symptoms are moderate in severity, no other aggravating or alleviating factors.. 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 - Infectious Disease History:: Denies. - Social history:: Smoking status: Patient denies any tobacco usage or history of. - Family history:: not pertinent. ROS: 04:24 Constitutional: Negative for fever, chills, and weight loss, Cardiovascular: Negative rt for chest pain, palpitations, and edema, Respiratory: Negative for shortness of breath, cough, wheezing, and pleuritic chest pain, MS/Extremity: Negative for injury and deformity, Skin: Negative for injury, rash, and discoloration, 04:24 Abdomen/GI: Positive for nausea, 04:24 Neuro: Positive for headache, Negative for altered mental status, Exam: 04:24 Constitutional: This is a well developed, well nourished patient who is awake, alert, rt and in no acute distress. Head/Face: Normocephalic, atraumatic. Chest/axilla: Normal chest wall appearance and motion. Nontender with no deformity. No lesions are appreciated. Cardiovascular: Regular rate and rhythm with a normal S1 and S2. No gallops, murmurs, or rubs. Normal PMI, no JVD. No pulse deficits. Respiratory: Lungs have equal breath sounds bilaterally, clear to auscultation and percussion. No rales, rhonchi or wheezes noted. No increased work of breathing, no retractions or nasal flaring. Abdomen/GI: Soft, non-tender, with normal bowel sounds. No distension or tympany. No guarding or rebound. No evidence of tenderness throughout. Skin: Warm, dry with normal turgor. Normal color with no rashes, no lesions, and no evidence of cellulitis. MS/ Extremity: Pulses equal, no cyanosis. Neurovascular intact. Full, normal range of motion. Neuro: Awake and alert, GCS 15, oriented to person, place, time, and situation. Cranial nerves II-XII grossly intact. Motor strength 5/5 in all extremities. Sensory grossly intact. Cerebellar exam normal. Normal gait. Vital Signs: 04:03 BP 152 / 98; Pulse 113; Resp 18; Temp 98.3; Pulse Ox 100% ; Weight 90.72 kg; Height 5 vc1 ft. 2 in. ; Pain 10/10; 05:40 BP 135 / 92; Pulse 101; Resp 20; Temp 98.3; Pulse Ox 95% on R/A; Pain 0/10; bm8 04:03 Body Mass Index 36.58 (90.72 kg, 157.48 cm) vc1 04:03 Pain Scale: Adult vc1 05:40 Pain Scale: Adult bm8 Michelle Coma Score: 05:40 Eye Response: spontaneous(4). Motor Response: obeys commands(6). Verbal Response: bm8 oriented(5). Total: 15. MDM: 04:03 Patient medically screened. rt 05:38 Differential diagnosis: Migraine, headache. Data reviewed: vital signs, nurses notes. rt Test considered but Not performed: CT: Patient with chronic migraines, similar in character to previous migraines, CT scan of the head is not indicated. Care significantly affected by the following chronic conditions: Migraine headaches. Counseling: I had a detailed discussion with the patient and/or guardian regarding the historical points, exam findings, and any diagnostic results supporting the discharge/admit diagnosis, the need for outpatient follow up, to return to the emergency department if symptoms worsen or persist or if there are any questions or concerns that arise at home. Response to treatment: the patient's symptoms have markedly improved after treatment. 04/16 04:24 Order name: IV Start; Complete Time: 04:51 lg3 Administered Medications: 04:50 Drug: Promethazine IVP 12.5 mg IVP once Route: IVP; Site: right antecubital; bm8 05:46 Follow up: Response: No adverse reaction bm8 04:50 Drug: Decadron - Dexamethasone IVP 10 mg IVP once Route: IVP; Site: right antecubital; bm8 05:46 Follow up: Response: No adverse reaction bm8 04:50 Drug: NS 0.9% IV 1000 ml IV at 1 bolus Per protocol; 1000 mL bolus Route: IV; Rate: 1 bm8 bolus; Site: right antecubital; 05:45 Follow up: Response: No adverse reaction; IV Status: Completed infusion; IV Intake: bm8 1000ml 04:50 Drug: Acetaminophen PO 1000 mg PO once Route: PO; bm8 05:45 Follow up: Response: No adverse reaction bm8 04:51 Drug: Droperidol IVP 1.25 mg IVP once Route: IVP; Site: right antecubital; bm8 05:46 Follow up: Response: No adverse reaction bm8 Disposition Summary: 04/16/24 05:37 Discharge Ordered Notes: Location: Home rt Problem: an acute exacerbation rt Symptoms: have improved rt Condition: Stable rt Diagnosis - Migraine without aura, not intractable rt Followup: rt - With: Private Physician - When: 2 - 3 days - Reason: Discharge Instructions: - Discharge Summary Sheet rt - Migraine Headache rt Forms: - Medication Reconciliation Form rt - Antibiotic Education rt - Prescription Opioid Use rt - Patient Portal Instructions rt - Leadership Thank You Letter rt Signatures: Rosa Maria Morgan RN RN lg3 Tiara Mcnair RN RN vc1 James Lewis MD MD rt Josef Gutierrez RN RN bm8
[2024-04-16 06:15] VITALS: TEMP 98.3
[2024-04-16 06:16] VITALS: BP 135/92; O2SAT 95
== END 2024-04-16 05:50 | disposition home or self-care (01) ==
LOC: ER 03:42
DX: G43.009 Migraine without aura, not intractable, without status migrainosus (principal)
CPT/HCPCS: 96361; 96374; 96375; 99284; J1100; J1790; J2550; J7030

== ENCOUNTER 2024-05-24 01:19 | Emergency (ER) | payer SELFPAY ==
[2024-05-24] MEDS ORDERED: droPERidol 5 MG/2 ML VIAL ONE (02:35)
[2024-05-24] MEDS ORDERED: DIPHENHYDRAMINE 50 MG/ML VIAL ONE (02:35)
[2024-05-24] MEDS ORDERED: NA CHLORIDE 0.9% 1,000 ML ONE (02:36)
[2024-05-24 03:02] LABS: Specific Gravity 1.006 (1.005-1.030); Sqamous Epithelial <5 /HPF (None Seen); Urine Bacteria <20 /HPF (<20); Urine Bilirubin NEGATIVE (Negative); Urine Blood Trace (Negative); Urine Clarity Turbid (Clear); Urine Color Colorless (Yellow); Urine Culture Reflex Order NOT NEEDED; Urine Glucose NEGATIVE (Negative); Urine Ketones NEGATIVE (Negative); Urine Micro Reflex YN NO BILL MICROSCOPIC; Urine Mucus Slight /HPF (None Seen); Urine Nitrite NEGATIVE (Negative); Urine Protein NEGATIVE (Negative); Urine RBC None Seen /HPF (None Seen); Urine Urobilinogen Normal (Normal); Urine WBC <5 /HPF (<5); Urine pH 6.5 (5.0-7.0)
[2024-05-24 03:05] LABS: Absolute Eosinophils 0.1 K/uL (0-0.5); Absolute Lymphocytes (CBC) 2.1 K/uL (0.7-4.9); Absolute Monocytes 0.9 K/uL (0.1-1.3); Absolute Neutrophil 5.2 K/uL (1.8-8.0); Basophils % 0.3 % (0-1.3); Eosinophils % 1.6 % (0-4.4); Hematocrit 33.2 % (36.0-45.0); Hemoglobin 10.2 g/dL (12.0-15.0); Lymphocytes % 24.5 % (15.3-44.8); MCHC 30.9 g/dL (32.0-36.0); MCV 71.1 fL (80-100); MPV 7.4 fL (7.6-11.3); Monocytes % 11.3 % (3.3-12.3); Neutrophils % 62.3 % (41.7-73.7); Nucleated Red Blood Cells % 0.1 % (0-0); Platelets 428 thou/uL (152-406); RBC Red Blood Cell Count 4.67 M/uL (3.86-4.86); Red Cell Distribution Width 18.7 % (12.1-15.2)
[2024-05-24 03:10] LABS: Anion Gap 6.4 mEq/L (5.0-15.0); Potassium 3.4 mEq/L (3.5-5.1)
--- NOTE | 2024-05-24 03:25 | ER ---
Nurse's Notes [facility] Name: Yissel Carmona Age: 48 yrs Sex: Female : 1975 Arrival Date: 05/24/2024 Time: 01:19 Bed 5 Private MD: Diagnosis: Migraine without aura, not intractable;Anemia, unspecified Presentation: 05/24 01:47 Chief complaint: Patient states: c/o frontal headache and nausea since 1600 this al5 afternoon. hx of migraine. Coronavirus screen: At this time, the client does not indicate any symptoms associated with coronavirus-19. Ebola Screen: No symptoms or risks identified at this time. Initial Sepsis Screen: Does the patient meet any 2 criteria? No. Patient's initial sepsis screen is negative. Does the patient have a suspected source of infection? No. Patient's initial sepsis screen is negative. Risk Assessment: Do you want to hurt yourself or someone else? Patient reports no desire to harm self or others. Onset of symptoms was May 24, 2024. 01:47 Method Of Arrival: Ambulatory al5 01:47 Acuity: NEVAEH 3 al5 Triage Assessment: 01:50 Headache History: The patient has had previous headaches and this one is similar to al5 previous episodes. General: Appears in no apparent distress. Behavior is calm, cooperative. General: Appears uncomfortable. Pain: Complains of pain in head Pain currently is 10 out of 10 on a pain scale. Pain began 1600 this afternoon Also complains of nausea. EENT: No signs and/or symptoms were reported regarding the EENT system. Neuro: Chu Agitation-Sedation Scale (RASS): 0 - Alert and Calm Level of Consciousness is awake, alert, obeys commands, Oriented to person, place, time, situation, Reports headache frontal area. Cardiovascular: Capillary refill < 3 seconds Patient's skin is warm and dry. Respiratory: Airway is patent Respiratory effort is even, unlabored, Respiratory pattern is regular, symmetrical. GI: Abdomen is round non-distended, Reports nausea. : No signs and/or symptoms were reported regarding the genitourinary system. Derm: Skin is intact, is healthy with good turgor, Skin is pink, warm \T\ dry. normal. Musculoskeletal: No signs and/or symptoms reported regarding the musculoskeletal system. 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 - Infectious Disease History:: Denies. - Social history:: Smoking status: Patient denies any tobacco usage or history of. Screenin:52 [facility] ED Fall Risk Assessment (Adult) History of falling in the last 3 months, al5 including since admission No falls in past 3 months (0 pts) Confusion or Disorientation No (0 pts) Intoxicated or Sedated No (0 pts) Impaired Gait No (0 pts) Mobility Assist Device Used No (0 pt) Altered Elimination No (0 pt) Score/Fall Risk Level 0 - 2 = Low Risk Oriented to surroundings, Maintained a safe environment, Hourly rounding (assess needs \T\ fall precautionary measures) done. Abuse screen: Denies threats or abuse. Denies injuries from another. Nutritional screening: No deficits noted. Tuberculosis screening: No symptoms or risk factors identified. Assessment: 01:52 Reassessment: see triage assessment. Pain: Complains of pain in head. al5 02:40 Reassessment: Patient appears in no apparent distress at this time. Patient and/or al5 family updated on plan of care and expected duration. Pain level reassessed. Patient is alert, oriented x 3, equal unlabored respirations, skin warm/dry/pink. Patient states feeling better. 03:39 Reassessment: Patient appears in no apparent distress at this time. No changes from al5 previously documented assessment. Patient and/or family updated on plan of care and expected duration. Pain level reassessed. Patient is alert, oriented x 3, equal unlabored respirations, skin warm/dry/pink. Vital Signs: 01:47 BP 153 / 104; Pulse 94; Resp 18; Temp 98.7; Pulse Ox 99% on R/A; al5 02:00 BP 156 / 98; Pulse 96; Resp 18; Pulse Ox 99% on R/A; al5 02:40 BP 138 / 89; Pulse 100; Resp 18; Pulse Ox 100% on R/A; al5 02:45 BP 131 / 83; Pulse 90; Resp 17; Pulse Ox 98% on R/A; al5 03:12 BP 137 / 88; Pulse 99; Resp 16; Pulse Ox 99% on R/A; al5 03:15 BP 137 / 77; Pulse 90; Resp 16; Pulse Ox 99% on R/A; al5 03:30 BP 128 / 81; Pulse 84; Resp 17; Pulse Ox 98% on R/A; al5 ED Course: 01:24 Patient arrived in ED. jj6 01:27 Domingo Hyde MD is Attending Physician. ec2 01:47 Ashley Lee RN is Primary Nurse. al5 01:49 Triage completed. al5 01:52 Arm band placed on right wrist. Patient placed in the treatment room, on a stretcher. al5 01:53 Patient has correct armband on for positive identification. Bed in low position. Call al5 light in reach. Side rails up X 1. Provided Education on: plan of care. 01:53 No provider procedures requiring assistance completed. al5 02:40 Inserted saline lock: 20 gauge in left antecubital area, using aseptic technique. Blood ha1 collected. Flushed with 10 mL NS Accessed peripheral vein via ultrasound, utilizing dynamic ultrasound technique. 04:01 IV discontinued, intact, bleeding controlled, No redness/swelling at site. Pressure al5 dressing applied. Administered Medications: 02:40 Drug: NS 0.9% IV 1000 ml IV at 1000 ml once; to be given as a bolus over 60 minutes ha1 Route: IV; Rate: 1000 ml; Site: left antecubital; 04:02 Follow up: Response: No adverse reaction; IV Status: Completed infusion; IV Intake: al5 1000ml 02:42 Drug: Droperidol IVP 2.5 mg IVP once Route: IVP; Site: left antecubital; ha1 04:01 Follow up: Response: No adverse reaction; Pain is decreased al5 02:44 Drug: diphenhydrAMINE IVP 25 mg IVP once Route: IVP; Site: left antecubital; ha1 04:01 Follow up: Response: No adverse reaction; Pain is decreased al5 Medication: 01:52 VIS not applicable for this client. al5 Intake: 04:02 IV: 1000ml; Total: 1000ml. al5 Outcome: 03:25 Discharge ordered by . ec2 04:02 Discharged to home ambulatory, al5 04:02 Condition: good 04:02 Discharge instructions given to patient, Instructed on discharge instructions, follow up and referral plans. Demonstrated understanding of instructions, follow-up care, 04:02 Patient left the ED. al5 Signatures: Elsa Villedaj6 Kaylee Duran, RN RN ha1 Domingo Hyde MD MD ec2 Ashley Lee RN RN al5
--- NOTE | 2024-05-24 03:26 | EDPHYS ---
Physician Documentation [facility] Name: Yissel Carmona Age: 48 yrs Sex: Female : 1975 Arrival Date: 05/24/2024 Time: 01:19 Bed 5 Private MD: ED Physician Domingo Hyde HPI: 05/24 01:55 This 48 yrs old Female presents to ER via Ambulatory with complaints of ec2 Headache, Nausea. 01:55 Patient arrives today for evaluation of headache and nausea. Reports that she has a ec2 history of migraines. Reports she took amitriptyline with minimal improvement in symptoms. No vomiting, no diarrhea. No cough and cold symptoms.. 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 - Infectious Disease History:: Denies. - Social history:: Smoking status: Patient denies any tobacco usage or history of. ROS: 01:55 Constitutional: as per hpi ec2 Exam: 01:55 Constitutional: GEN: NAD Head: atraumatic Eyes: EOMI Ears: External ears are ec2 normal. CV: regular rate LUNGS: no respiratory distress ABD: non-distended SKIN: no evidence of rashes MSK: no evidence of trauma. Neuro: Cranial nerves II through XII intact, strength intact all 4 extremities. Vital Signs: 01:47 BP 153 / 104; Pulse 94; Resp 18; Temp 98.7; Pulse Ox 99% on R/A; al5 02:00 BP 156 / 98; Pulse 96; Resp 18; Pulse Ox 99% on R/A; al5 02:40 BP 138 / 89; Pulse 100; Resp 18; Pulse Ox 100% on R/A; al5 02:45 BP 131 / 83; Pulse 90; Resp 17; Pulse Ox 98% on R/A; al5 03:12 BP 137 / 88; Pulse 99; Resp 16; Pulse Ox 99% on R/A; al5 03:15 BP 137 / 77; Pulse 90; Resp 16; Pulse Ox 99% on R/A; al5 03:30 BP 128 / 81; Pulse 84; Resp 17; Pulse Ox 98% on R/A; al5 MDM: 01:34 Medical Screening Exam initiated ec2 01:55 Data reviewed: vital signs. ED course: Patient arrives today for evaluation of headache ec2 and nausea. Examination remarkable for neuro intact nontoxic hemodynamically stable individuals otherwise in no acute distress. Will obtain lab work and treat the patient's headache. Suspect headache syndrome given the patient's migraine history. Doubt intracranial mass or brain bleed given lack of mechanism, lack of focal neurodeficits.. 03:23 ED course: Lab work is nonactionable, does have slight anemia. Suspect patient's ec2 migraine symptoms. Will discharge home have patient follow-up outpatient. Return precautions given.. 05/24 03:02 Order name: Urinalysis W/Microscopic; Complete Time: 03:13 EDMS 05/24 03:10 Order name: Basic Metabolic Panel; Complete Time: 03:13 EDMS 05/24 03:16 Order name: CBC with Automated Diff; Complete Time: 03:23 EDMS Administered Medications: 02:40 Drug: NS 0.9% IV 1000 ml IV at 1000 ml once; to be given as a bolus over 60 minutes ha1 Route: IV; Rate: 1000 ml; Site: left antecubital; 04:02 Follow up: Response: No adverse reaction; IV Status: Completed infusion; IV Intake: al5 1000ml 02:42 Drug: Droperidol IVP 2.5 mg IVP once Route: IVP; Site: left antecubital; ha1 04:01 Follow up: Response: No adverse reaction; Pain is decreased al5 02:44 Drug: diphenhydrAMINE IVP 25 mg IVP once Route: IVP; Site: left antecubital; ha1 04:01 Follow up: Response: No adverse reaction; Pain is decreased al5 Disposition Summary: 05/24/24 03:25 Discharge Ordered Notes: Location: Home ec2 Condition: Stable ec2 Diagnosis - Migraine without aura, not intractable ec2 - Anemia, unspecified ec2 Followup: ec2 - With: Private Physician - When: - Reason: Re-evaluation by your physician Discharge Instructions: - Discharge Summary Sheet ec2 - Migraine Headache, [id number] ec2 Forms: - Medication Reconciliation Form ec2 - Antibiotic Education ec2 - Prescription Opioid Use ec2 - Patient Portal Instructions ec2 - Leadership Thank You Letter ec2 Signatures: Dispatcher [employer] Kaylee Herrera RN RN ha1 Domingo Hyde MD MD ec2 Ashley Lee RN RN al5
== END 2024-05-24 04:02 | disposition home or self-care (01) ==
LOC: ER 01:19
DX: G43.009 Migraine without aura, not intractable, without status migrainosus (principal); D64.9 Anemia, unspecified
CPT/HCPCS: 36415; 80048; 81001; 85025; 96361; 96374; 96375; 99285; J1200; J1790; J7030

== ENCOUNTER 2024-07-23 14:04 | Emergency (ER) | payer OTHER, SELFPAY ==
[2024-07-23] MEDS ORDERED: HYDROMORPHONE HCL 1 MG/ML INJ ONE (14:42)
[2024-07-23] MEDS ORDERED: PROMETHAZINE INJ 25 MG/ML AMP ONE (14:43)
[2024-07-23] MEDS ORDERED: NA CHLORIDE 0.9% 500 ML ONE (14:43)
--- NOTE | 2024-07-23 14:54 | RAD REPORT ---
EXAMINATION: ONE VIEW CHEST XR CLINICAL INDICATION: sore throat, cough TECHNIQUE: Frontal chest projection is submitted. Examination is limited by patient positioning and t echnique. COMPARISON: 01/28/2024 CT study FINDINGS: The lungs are well inflated and clear. The heart is upper limit of normal in size. No displaced fract ures identified. IMPRESSION: No acute intrathoracic abnormalities.
[2024-07-23 15:43] LABS: Absolute Eosinophils 0.2 K/uL (0-0.5); Absolute Lymphocytes (CBC) 2.1 K/uL (0.7-4.9); Absolute Monocytes 0.7 K/uL (0.1-1.3); Absolute Neutrophil 5.6 K/uL (1.8-8.0); Basophils % 0.4 % (0-1.3); Eosinophils % 2.3 % (0-4.4); Hematocrit 34.5 % (36.0-45.0); Hemoglobin 10.9 g/dL (12.0-15.0); Lymphocytes % 24.5 % (15.3-44.8); MCH 22.4 pg (27.0-35.0); MCHC 31.6 g/dL (32.0-36.0); MPV 7.2 fL (7.6-11.3); Monocytes % 8.2 % (3.3-12.3); Neutrophils % 64.6 % (41.7-73.7); Platelets 474 thou/uL (152-406); RBC Red Blood Cell Count 4.86 M/uL (3.86-4.86); Red Cell Distribution Width 18.9 % (12.1-15.2)
[2024-07-23 16:00] LABS: ALT/SGPT 29 U/L (13-56); AST/SGOT 20 U/L (15-37); Albumin 3.5 g/dL (3.4-5.0); Albumin/Globulin Ratio 0.8 (1.1-1.8); Alkaline Phosphatase 123 U/L (45-117); Anion Gap 8.7 mEq/L (5.0-15.0); BUN Blood Urea Nitrogen 9 mg/dL (7-18); Bicarbonate 27 mEq/L (21-32); Globulin 4.2 g/dL (2.3-3.5); Glomerular Filtration Rate 73 ml/min (=/>90); Glucose Level 102 mg/dL (74-106); Potassium 3.7 mEq/L (3.5-5.1); Protein, Total 7.7 g/dL (6.4-8.2); Sodium Level 139 mEq/L (136-145)
[2024-07-23 16:12] LABS: Bilirubin Total < 0.2 mg/dL (0.2-1.0)
[2024-07-23 16:22] LABS: SARS-CoV-2 Antigen CONTROL BLUE LINE VIS/BG OK; SARS-CoV-2 Antigen Rapid Res Negative (Negative)
--- NOTE | 2024-07-23 17:00 | ER ---
Nurse's Notes [facility] Name: Yissel Carmona Age: 48 yrs Sex: Female : 1975 Arrival Date: 07/23/2024 Time: 14:04 Bed 20 Private MD: Diagnosis: Migraine headache, TMJ inflammation Presentation: 07/23 14:14 Chief complaint: Patient states: 2 days of migraine headache and 4 days of sore throat iw mainly on left side. Coronavirus screen: Client presents with at least one sign or symptom that may indicate coronavirus-19. Ebola Screen: No symptoms or risks identified at this time. Risk Assessment: Do you want to hurt yourself or someone else? Patient reports no desire to harm self or others. Onset of symptoms was July 21, 2024. 14:14 Method Of Arrival: Ambulatory iw 14:14 Acuity: NEVAEH 3 iw 14:14 Initial Sepsis Screen: Does the patient meet any 2 criteria? HR > 90 bpm. Yes Does the rs5 patient have a suspected source of infection? No. Patient's initial sepsis screen is negative. Historical: - Allergies: 14:15 Cipro; iw 14:15 Reglan; iw 14:15 Rocephin; iw 14:15 Stadol; iw 14:15 tequin; iw 14:15 Toradol; iw 14:15 tramadol; iw 14:15 Zofran; iw - Home Meds: 14:15 amitriptyline 125 mg Oral daily [Active]; migraine shot monthly [Active]; iw - PMHx: 14:15 Migraines; iw - PSHx: 14:15 Nephrectomy - Right; iw - Immunization history:: Adult Immunizations not up to date. - Infectious Disease History:: Denies. - Social history:: Smoking status: Patient denies any tobacco usage or history of. Screenin:22 [facility] ED Fall Risk Assessment (Adult) History of falling in the last 3 months, rs5 including since admission No falls in past 3 months (0 pts) Confusion or Disorientation No (0 pts) Intoxicated or Sedated No (0 pts) Impaired Gait No (0 pts) Mobility Assist Device Used No (0 pt) Altered Elimination No (0 pt) Score/Fall Risk Level 0 - 2 = Low Risk Oriented to surroundings, Maintained a safe environment. Abuse screen: Denies threats or abuse. Nutritional screening: No deficits noted. Tuberculosis screening: No symptoms or risk factors identified. Assessment: 14:22 General: Appears in no apparent distress. uncomfortable, Behavior is calm, cooperative. rs5 Pain: Complains of pain in back of throat and head Pain currently is 8 out of 10 on a pain scale. Quality of pain is described as aching, Is continuous. Neuro: Level of Consciousness is awake, alert, obeys commands, Oriented to person, place, time, situation. Cardiovascular: Patient's skin is warm and dry. Respiratory: Airway is patent Respiratory effort is even, unlabored, Respiratory pattern is regular, symmetrical. Respiratory: Breath sounds are clear. GI: Abdomen is round non-distended. : No signs and/or symptoms were reported regarding the genitourinary system. EENT: Throat redness noted to back of throat. Derm: Skin is intact, Skin is pink, warm \T\ dry. Musculoskeletal: Range of motion: intact in all extremities. 15:33 Reassessment: Patient and/or family updated on plan of care and expected duration. Pain rs5 level reassessed. Patient is alert, oriented x 3, equal unlabored respirations, skin warm/dry/pink. 16:25 Reassessment: Patient and/or family updated on plan of care and expected duration. Pain rs5 level reassessed. Patient is alert, oriented x 3, equal unlabored respirations, skin warm/dry/pink. 17:15 Reassessment: Patient appears in no apparent distress at this time. Patient and/or jb4 family updated on plan of care and expected duration. Pain level reassessed. Patient is alert, oriented x 3, equal unlabored respirations, skin warm/dry/pink. Vital Signs: 14:14 BP 152 / 103; Pulse 105; Resp 18; Pulse Ox 100% on R/A; iw 16:24 BP 160 / 77; Pulse 91; Resp 17; Temp 98; Pulse Ox 99% ; rs5 17:00 BP 155 / 78; Pulse 77; Resp 17; Pulse Ox 99% on R/A; rs5 ED Course: 14:09 Patient arrived in ED. ra3 14:10 Mike Denis MD is Attending Physician. sp3 14:15 Triage completed. iw 14:22 Patient has correct armband on for positive identification. Placed in gown. Bed in low rs5 position. Call light in reach. Side rails up X2. 14:22 No provider procedures requiring assistance completed. rs5 14:29 Inserted saline lock: 24 gauge in left upper arm, using aseptic technique. rs5 14:41 Alfred Goodman, RN is Primary Nurse. rs5 14:48 Chest Single View XRAY In Process Unspecified. EDMS 17:15 Provided Education on: discharge instructions.. jb4 17:15 IV discontinued, intact, bleeding controlled, No redness/swelling at site. Pressure jb4 dressing applied. Administered Medications: 14:45 Drug: NS 0.9% IV 500 ml IV at bolus once; to be given as a bolus over 30 minutes Route: rs5 IV; Rate: bolus; Site: left upper arm; 15:30 Follow up: Response: No adverse reaction; IV Status: Completed infusion; IV Intake: rs5 999ml 14:45 Drug: HYDROmorphone IVP 1 mg IVP once Route: IVP; Site: left upper arm; rs5 15:05 Follow up: Response: No adverse reaction; Pain is decreased rs5 14:45 Drug: Promethazine IVP 12.5 mg IVP once Route: IVP; Site: left upper arm; rs5 15:10 Follow up: Response: No adverse reaction; Nausea is decreased rs5 Medication: 16:25 VIS not applicable for this client. rs5 Intake: 15:30 IV: 999ml; Total: 999ml. rs5 Outcome: 17:00 Discharge ordered by . sp3 17:15 Discharged to home ambulatory, jb4 17:15 Condition: stable 17:15 Discharge instructions given to patient, Instructed on discharge instructions, follow up and referral plans. medication usage, Demonstrated understanding of instructions, follow-up care, medications, Prescriptions given X 1, 17:16 Patient left the ED. jb4 Signatures: Dispatcher [employer] EDMS Virginia Vela RN RN iw Bryson, James RN RN jb4 Mike Denis MD MD sp3 Alfred Goodman, RN RN rs5 Diane Hernandes ra3 Corrections: (The following items were deleted from the chart) 16:26 16:25 IV Status: Completed infusion rs5 rs5 16:26 16:24 BP 160 / 77; Pulse 91bpm; Resp 17bpm; Pulse Ox 99%; rs5 rs5 18:42 18:01 BP 155 / 78; Pulse 77bpm; Resp 17bpm; Pulse Ox 99% RA; rs5 rs5
--- NOTE | 2024-07-23 17:00 | EDPHYS ---
Physician Documentation [facility] Name: Yissel Carmona Age: 48 yrs Sex: Female : 1975 Arrival Date: 07/23/2024 Time: 14:04 Bed 20 Private MD: ED Physician Mike Denis HPI: 07/23 14:39 This 48 yrs old Female presents to ER via Ambulatory with complaints of Sore sp3 Throat - Migraine. 14:39 48-year-old female with history of migraines we will establish and stage XII with sp3 multiple imaging in the past, now presents with sore throat inducing migraine and left jaw pain to her left ear. Symptoms been going on for 2 to 3 days. She denies any fever but states it hurts when she swallows. She denies neck pain, neck stiffness, chest pain, shortness of breath, cough, back pain, abdominal pain, nausea, vomiting, diarrhea, documented fever, chills, rash, syncope, near syncope, known sick contacts, travel history, prolonged immobilization, or any other signs or symptoms on ROS at this time.. Historical: - Allergies: 14:15 Cipro; iw 14:15 Reglan; iw 14:15 Rocephin; iw 14:15 Stadol; iw 14:15 tequin; iw 14:15 Toradol; iw 14:15 tramadol; iw 14:15 Zofran; iw - Home Meds: 14:15 amitriptyline 125 mg Oral daily [Active]; migraine shot monthly [Active]; iw - PMHx: 14:15 Migraines; iw - PSHx: 14:15 Nephrectomy - Right; iw - Immunization history:: Adult Immunizations not up to date. - Infectious Disease History:: Denies. - Social history:: Smoking status: Patient denies any tobacco usage or history of. ROS: 14:43 Constitutional: Negative for fever, chills, and weight loss, Eyes: Negative for injury, sp3 pain, redness, and discharge, Neck: Negative for injury, pain, and swelling, Cardiovascular: Negative for chest pain, palpitations, and edema, Respiratory: Negative for shortness of breath, cough, wheezing, and pleuritic chest pain, Abdomen/GI: Negative for abdominal pain, nausea, vomiting, diarrhea, and constipation, Back: Negative for injury and pain, MS/Extremity: Negative for injury and deformity, Skin: Negative for injury, rash, and discoloration, Psych: Negative for depression, anxiety, suicide ideation, homicidal ideation, and hallucinations, Allergy/Immunology: Negative for hives, rash, and allergies, Endocrine: Negative for neck swelling, polydipsia, polyuria, polyphagia, and marked weight changes, Hematologic/Lymphatic: Negative for swollen nodes, abnormal bleeding, and unusual bruising, 14:43 All other systems are negative, Exam: 14:43 Constitutional: This is a well developed, well nourished patient who is awake, alert, sp3 and in no acute distress. Head/Face: Normocephalic, atraumatic. Neck: Trachea midline, no thyromegaly or masses palpated, and no cervical lymphadenopathy. Supple, full range of motion without nuchal rigidity, or vertebral point tenderness. No Meningismus. Chest/axilla: Normal chest wall appearance and motion. Nontender with no deformity. No lesions are appreciated. Cardiovascular: Regular rate and rhythm with a normal S1 and S2. No gallops, murmurs, or rubs. Normal PMI, no JVD. No pulse deficits. Respiratory: Lungs have equal breath sounds bilaterally, clear to auscultation and percussion. No rales, rhonchi or wheezes noted. No increased work of breathing, no retractions or nasal flaring. Abdomen/GI: Soft, non-tender, with normal bowel sounds. No distension or tympany. No guarding or rebound. No evidence of tenderness throughout. Back: No spinal tenderness. No costovertebral tenderness. Full range of motion. Skin: Warm, dry with normal turgor. Normal color with no rashes, no lesions, and no evidence of cellulitis. MS/ Extremity: Pulses equal, no cyanosis. Neurovascular intact. Full, normal range of motion. Neuro: Awake and alert, GCS 15, oriented to person, place, time, and situation. Cranial nerves II-XII grossly intact. Motor strength 5/5 in all extremities. Sensory grossly intact. Cerebellar exam normal. Normal gait. Psych: Awake, alert, with orientation to person, place and time. Behavior, mood, and affect are within normal limits. 14:43 ENT: Patient with mild photophobia. No lymphadenopathy on anterior neck exam. No uvular shift or peritonsillar swelling or abscess visually noted.. 15:20 ECG was reviewed by the Attending Physician. EKG demonstrates normal sinus rhythm at 88 sp3 bpm with normal intervals, normal QRS, normal axis, normal ST/T-segment's without evidence of acute ischemia. Vital Signs: 14:14 BP 152 / 103; Pulse 105; Resp 18; Pulse Ox 100% on R/A; iw 16:24 BP 160 / 77; Pulse 91; Resp 17; Temp 98; Pulse Ox 99% ; rs5 17:00 BP 155 / 78; Pulse 77; Resp 17; Pulse Ox 99% on R/A; rs5 MDM: 14:20 Medical Screening Exam initiated sp3 14:44 Data reviewed: vital signs, nurses notes, lab test result(s). ED course: 48-year-old sp3 female who presents with sore throat and headache consistent with her migraine. Differential diagnosis include strep pharyngitis, influenza, other viral illness, COVID-19, and illness induced migraine. I am not highly suspicious of meningitis, head injury, intracranial hemorrhage, or any other critical intracranial process. CT head not currently indicated. Will administer IV fluids, check general labs and swabs coupled with Dilaudid, Phenergan, and IV fluids as needed.. 16:59 ED course: Patient feels much better. Labs negative. Swabs negative. Believe patient sp3 has either dental etiology noninfectious, or TMJ etiology. Left ear has a normal exam as well. Will discharge on diclofenac p.o. and have patient monitor symptoms. If she spikes a fever or has any other concerns she will return. Otherwise she will follow-up with her PCP. She is set for a migraine follow-up this week.. 17:01 ED course: Patient states she can take ibuprofen. She has no GI pathology. Toradol is sp3 not a true allergy. Will discharge on diclofenac given her TMJ issue.. 07/23 14:33 Order name: Blood Culture Adult (2) sp3 07/23 14:33 Order name: CBC with Diff; Complete Time: 15:59 sp3 07/23 14:33 Order name: CMP; Complete Time: 16:43 sp3 07/23 14:33 Order name: Lactate w/ 2H reflex if indic.; Complete Time: 16:43 sp3 07/23 14:33 Order name: Strep sp3 07/23 14:33 Order name: Flu; Complete Time: 16:43 sp3 07/23 14:33 Order name: SARS RAPID; Complete Time: 16:43 sp3 07/23 16:18 Order name: Throat Culture EDMS 07/23 14:33 Order name: Chest Single View XRAY; Complete Time: 14:58 sp3 07/23 14:33 Order name: Cardiac monitoring; Complete Time: 16:07 sp3 07/23 14:33 Order name: EKG - Nurse/Tech; Complete Time: 16:07 sp3 07/23 14:33 Order name: IV Saline Lock - Large Bore; Complete Time: 16:07 sp3 07/23 14:33 Order name: Labs collected and sent; Complete Time: 16:07 sp3 07/23 14:33 Order name: O2 Per Protocol; Complete Time: 16:07 sp3 07/23 14:33 Order name: O2 Sat Monitoring; Complete Time: 16:07 sp3 07/23 14:33 Order name: Vital Signs; Complete Time: 16:07 sp3 Administered Medications: 14:45 Drug: NS 0.9% IV 500 ml IV at bolus once; to be given as a bolus over 30 minutes Route: rs5 IV; Rate: bolus; Site: left upper arm; 15:30 Follow up: Response: No adverse reaction; IV Status: Completed infusion; IV Intake: rs5 999ml 14:45 Drug: HYDROmorphone IVP 1 mg IVP once Route: IVP; Site: left upper arm; rs5 15:05 Follow up: Response: No adverse reaction; Pain is decreased rs5 14:45 Drug: Promethazine IVP 12.5 mg IVP once Route: IVP; Site: left upper arm; rs5 15:10 Follow up: Response: No adverse reaction; Nausea is decreased rs5 Disposition Summary: 07/23/24 17:00 Discharge Ordered Notes: Location: Home sp3 Condition: Stable sp3 Diagnosis - Migraine headache, TMJ inflammation sp3 Followup: sp3 - With: Private Physician - When: Upon discharge from the Emergency Department - Reason: Continuance of care Discharge Instructions: - Discharge Summary Sheet sp3 - Migraine Headache sp3 - Temporomandibular Joint Syndrome sp3 Forms: - Medication Reconciliation Form sp3 - Antibiotic Education sp3 - Prescription Opioid Use sp3 - Patient Portal Instructions sp3 - Leadership Thank You Letter sp3 Prescriptions: - Diclofenac Sodium 75 mg Oral Tablet Sustained Release - take 1 tablet ORAL route 2 times per day; 30 tablet; Refills: 0, Product sp3 Selection Permitted Signatures: Dispatcher [employer] ED[place], TORRES RN iw Mike Denis MD MD sp3 Alfred Goodman RN RN rs5 Corrections: (The following items were deleted from the chart) 14:33 14:33 BLOOD CULTURE*+BA.LAB.BRZ ordered. EDMS EDMS 14:33 14:33 CBC+H.LAB.BRZ ordered. EDMS EDMS 14:33 14:33 COMPREHENSIVE METABOLIC PANEL+C.LAB.BRZ ordered. EDMS EDMS 14:33 14:33 LACTATE+C.LAB.BRZ ordered. EDMS EDMS 14:33 14:33 Group A Streptococcus Rapid Sc+BA.LAB.BRZ ordered. EDMS EDMS 14:33 14:33 Influenza Screen (A \T\ B)+BA.LAB.BRZ ordered. EDMS EDMS 14:33 14:33 SARS-COV-2 Antigen Rapid+I.LAB.BRZ ordered. EDMS EDMS 14:34 14:34 Chest Single View+RAD.RAD.BRZ ordered. EDMS EDMS
[2024-07-23 17:56] VITALS: BP 160/77; TEMP 98; O2SAT 99
--- NOTE | 2024-07-29 11:03 | EKG ---
Test Date: 2024-07-23 Test Time: 15:10:36 Customer Energy Specialist: KHANH MEASUREMENT RESULTS: Intervals: Rate: 88 WI: 154 QRSD: 84 QT: 396 QTc: 479 [place]: P: 65 WI: 154 QRS: 66 T: 57 INTERPRETIVE STATEMENTS: Normal sinus rhythm Cannot rule out Anterior infarct, age undetermined Abnormal ECG No previous ECG available for comparison Electronically Signed On 07-29-24 10:57:37 WIRE TAPER by Dwayne Nye
== END 2024-07-23 17:16 | disposition home or self-care (01) ==
LOC: ER 14:04
DX: G43.909 Migraine, unspecified, not intractable, without status migrainosus (principal); M26.653 Arthropathy of bilateral temporomandibular joint; Z11.52 Encounter for screening for COVID-19
CPT/HCPCS: 96361; 93005; 87040 ×2; 87070; 85025; 36415; 87081; 83605; 80053; 87804 ×2; 71045; 96375; 96374; 99284; 87811; J2550; J1171; J7040

== ENCOUNTER 2024-09-12 23:39 | Emergency (ER) | payer OTHER ==
[2024-09-13] MEDS ORDERED: NA CHLORIDE 0.9% 1,000 ML ONE (00:19)
[2024-09-13] MEDS ORDERED: DIAZEPAM 10 MG/2 ML INJ SYRINGE ONE (00:19)
[2024-09-13] MEDS ORDERED: dexAMETHasone 10 MG/ML VIAL ONE (00:19)
[2024-09-13] MEDS ORDERED: PROMETHAZINE INJ 25 MG/ML AMP ONE (00:19)
--- NOTE | 2024-09-13 00:55 | EDPHYS ---
Physician Documentation [facility] Name: Yissel Carmona Age: 48 yrs Sex: Female : 1975 Arrival Date: 09/12/2024 Time: 23:39 Bed DX1 Private MD: ED Physician Olu Mendez HPI: 09/13 00:07 This 48 yrs old Female presents to ER via Ambulatory with complaints of Jaw sb4 Pain, Headache. 00:07 pain in left TMJ and decreased ROM of jaw x 2 days. also reports headache and left sb4 sided neck pain. denies prior episodes but previous visits state otherwise. has taken tylenol once without relief. states she has been under a lot of stress recently. does not wear a mouth guard at night. also reports nausea. 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 - Infectious Disease History:: Denies. - Social history:: Smoking status: Patient denies any tobacco usage or history of. Patient/guardian denies using alcohol, street drugs, IV drugs. ROS: 09/13 00:07 Constitutional: Negative for fever, chills, and weight loss, sb4 ENT: Positive for per HPI, Abdomen/GI: Positive for nausea, All other systems are negative, Exam: 00:07 Head/Face: Normocephalic, atraumatic. Eyes: Extra-ocular motions intact. Periorbital sb4 areas with no swelling, redness, or edema. ENT: Mucous membranes moist. Respiratory: No increased work of breathing, no retractions or nasal flaring. Skin: Warm, dry with normal turgor. Normal color with no rashes, no lesions, and no evidence of cellulitis. 00:07 Constitutional: The patient appears alert, awake, uncomfortable, 00:07 Head/face: Noted is swelling, that is mild, of the left cheek, tenderness, of the left alevism and left zygomatic area, Vital Signs: 09/12 23:51 BP 146 / 82; Pulse 100; Resp 20; Temp 97.8; Pulse Ox 100% ; Weight 95.25 kg; Height 5 [facility] ft. 2 in. ; Pain 10/10; 09/13 01:11 BP 134 / 60; Pulse 82; Resp 17; Temp 98.1; Pulse Ox 98% ; jj7 09/12 23:51 Body Mass Index 38.41 (95.25 kg, 157.48 cm) [facility] 09/12 23:51 Pain Scale: Adult [facility] [place] Coma Score: 03:11 Eye Response: spontaneous(4). Motor Response: obeys commands(6). Verbal Response: sp4 oriented(5). Total: 15. MDM: 09/12 23:59 Medical Screening Exam initiated sb4 09/13 00:54 Data reviewed: vital signs, nurses notes, and as a result, I will discharge patient. sb4 Counseling: I had a detailed discussion with the patient and/or guardian regarding the historical points, exam findings, and any diagnostic results supporting the discharge/admit diagnosis, the need for outpatient follow up, for definitive care, to return to the emergency department if symptoms worsen or persist or if there are any questions or concerns that arise at home. 09/12 23:55 Order name: IV Start; Complete Time: 00:19 sb4 Administered Medications: 09/12 23:57 CANCELLED (Physician Discretion): [id number] mg IVP once sb4 23:57 CANCELLED (Physician Discretion): ondansetron 4 mg IVP once; over 2 minutes sb4 09/13 00:25 Drug: Promethazine IVP 12.5 mg IVP once Route: IVP; Site: right antecubital; jj7 01:10 Follow up: Response: Pain is decreased : Drug: Diazepam IVP 5 mg IVP once Route: IVP; Site: right antecubital; jj7 01:10 Follow up: Response: Pain is decreased : Drug: Decadron - Dexamethasone IVP 10 mg IVP once Route: IVP; Site: right antecubital; j7 01:10 Follow up: Response: Pain is decreased 00:29 Drug: NS 0.9% IV 1000 ml IV at 1 bolus Per protocol; to be given as a bolus over 60 jj7 minutes Route: IV; Rate: 1 bolus; Site: right antecubital; 01:10 Follow up: IV Status: Completed infusion 01:09 Drug: Hydrocodone-Acetaminophen PO (7.5 mg-325 mg) 1 tabs PO once Route: PO; 01:10 Follow up: Response: No adverse reaction Disposition: 03:11 Co-signature as Attending Physician, Olu Mendez MD I agree with the assessment sp4 and plan of care. I reviewed the patient's care provided by Advanced Practice Provider \T\ agree w/ the diagnosis \T\ care plan. I personally saw the pt \T\ performed a substantive portion of the visit, incldng all aspects of the (History/Exam/Medical Decision Making). Disposition Summary: 09/13/24 00:54 Discharge Ordered Notes: Location: Home sb4 Problem: an acute exacerbation sb4 Symptoms: have improved sb4 Condition: Stable sb4 Diagnosis - Temporomandibular joint disorders sb4 Followup: sb4 - With: Private Physician - When: 1 week - Reason: Recheck today's complaints, Re-evaluation by your physician Discharge Instructions: - Discharge Summary Sheet sb4 - Temporomandibular Joint Syndrome sb4 Forms: - Patient Portal Instructions sb4 - Leadership Thank You Letter sb4 Prescriptions: - Prednisone 20 mg Oral Tablet - take 1 tablet ORAL route once daily for 5 days; 5 tablet; Refills: 0, Product sb4 Selection Permitted - Cyclobenzaprine 10 mg Oral Tablet - take 1 tablet ORAL route every 8 hours As needed; 30 tablet; Refills: 0, sb4 Product Selection Permitted - Diclofenac Sodium 75 mg Oral Tablet Sustained Release - take 1 tablet ORAL route 2 times per day; 30 tablet; Refills: 0, Product sb4 Selection Permitted Signatures: Leslie Simental RN RN jj7 Yas Camacho PA-C PA-C sb4 Olu Mendez MD MD sp4 Corrections: (The following items were deleted from the chart) 09/12 23:56 23:55 PMHx: TMJ (Nephrectomy - Right); jj7 jj7 23:56 23:55 PMHx: TMJ (Nephrectomy - Right); jj7 jj7 23:57 23:55 Ketorolac IVP 30 mg IVP once ordered. sb4 sb4 23:57 23:55 Ondansetron IVP 4 mg IVP once; over 2 minutes ordered. sb4 sb4
--- NOTE | 2024-09-13 00:55 | ER ---
Nurse's Notes [facility] Name: Yissel Carmona Age: 48 yrs Sex: Female : 1975 Arrival Date: 09/12/2024 Time: 23:39 Bed DX1 Private MD: Diagnosis: Temporomandibular joint disorders Presentation: 09/12 23:51 Chief complaint: Patient states: 2 DAYS AGO STARTED HAVING LEFT SIDED JAW PAIN, NOW jj7 PAIN WITH SWALLOWING AND OPENING HER MOUTH. HEADACHE, HX OF TMJ. Coronavirus screen: At this time, the client does not indicate any symptoms associated with coronavirus-19. Ebola Screen: No symptoms or risks identified at this time. Initial Sepsis Screen: Does the patient meet any 2 criteria? HR > 90 bpm. Yes Does the patient have a suspected source of infection? No. Patient's initial sepsis screen is negative. Risk Assessment: Do you want to hurt yourself or someone else? Patient reports no desire to harm self or others. Onset of symptoms was September 10, 2024. 23:51 [facility] 23:51 Acuity: NEVAEH 3 jj7 Triage Assessment: 23:55 Headache History: Denies prior headaches. General: Appears in no apparent distress. jj7 uncomfortable, Behavior is calm, cooperative, appropriate for age. Pain: Complains of pain in submental area and left submandibular area. Pain: Pain currently is 10 out of 10 on a pain scale. Pain began 2-3 days ago. Also complains of nausea. EENT: Reports JAW PAIN. Neuro: Reports headache. [employer]: 23:55 LMP 09/12/2024, unknown jj7 Historical: - Allergies: 23:55 Cipro; jj7 23:55 Reglan; jj7 23:55 Rocephin; jj7 23:55 Stadol; jj7 23:55 tequin; jj7 23:55 Toradol; jj7 23:55 tramadol; jj7 23:55 Zofran; jj7 - PMHx: 23:55 Migraines; jj7 - PSHx: 23:55 Nephrectomy - Right; jj7 - Immunization history:: Adult Immunizations up to date. - Infectious Disease History:: Denies. - Social history:: Smoking status: Patient denies any tobacco usage or history of. Patient/guardian denies using alcohol, street drugs, IV drugs. Screenin/28 00:29 [facility] ED Fall Risk Assessment (Adult) History of falling in the last 3 months, community hospital including since admission No falls in past 3 months (0 pts) Confusion or Disorientation No (0 pts) Intoxicated or Sedated No (0 pts) Impaired Gait No (0 pts) Mobility Assist Device Used No (0 pt) Altered Elimination No (0 pt) Score/Fall Risk Level 0 - 2 = Low Risk Oriented to surroundings, Maintained a safe environment, Educated pt \T\ family on fall prevention, incl call for assistance when getting out of bed, Assessed \T\ reinforced patient's understanding of fall precautions. Abuse screen: Denies threats or abuse. Nutritional screening: No deficits noted. Tuberculosis screening: No symptoms or risk factors identified. Assessment: 09/12 23:50 Reassessment: SEE TRIAGE ASSESSMENT. [facility] Vital Signs: 23:51 BP 146 / 82; Pulse 100; Resp 20; Temp 97.8; Pulse Ox 100% ; Weight 95.25 kg; Height 5 [facility] ft. 2 in. ; Pain 10/10; 09/13 01:11 BP 134 / 60; Pulse 82; Resp 17; Temp 98.1; Pulse Ox 98% ; [facility] 09/12 23:51 Body Mass Index 38.41 (95.25 kg, 157.48 cm) [facility] 09/12 23:51 Pain Scale: Adult [facility] [place] Coma Score: 03:11 Eye Response: spontaneous(4). Motor Response: obeys commands(6). Verbal Response: sp4 oriented(5). Total: 15. ED Course: 09/12 23:42 Patient arrived in ED. jj6 23:49 [facility] sb4 23:49 Olu Mendez MD is Attending Physician. sb4 23:55 Triage completed. jj7 23:55 Arm band placed on right wrist. j7 09/13 00:19 Inserted saline lock: 20 gauge in right antecubital area, using aseptic technique. af3 Flushed with 10 mL NS. 00:29 Patient has correct armband on for positive identification. Bed in low position. Call jj7 light in reach. Warm blanket given. 00:29 No provider procedures requiring assistance completed. jj7 01:11 IV discontinued, intact, bleeding controlled, No redness/swelling at site. Pressure jj7 dressing applied. Administered Medications: 09/12 23:57 CANCELLED (Physician Discretion): [id number] mg IVP once sb4 23:57 CANCELLED (Physician Discretion): ondansetron 4 mg IVP once; over 2 minutes sb4 09/13 00:25 Drug: Promethazine IVP 12.5 mg IVP once Route: IVP; Site: right antecubital; jj7 01:10 Follow up: Response: Pain is decreased j7 00:28 Drug: Diazepam IVP 5 mg IVP once Route: IVP; Site: right antecubital; jj7 01:10 Follow up: Response: Pain is decreased j7 00:28 Drug: Decadron - Dexamethasone IVP 10 mg IVP once Route: IVP; Site: right antecubital; jj7 01:10 Follow up: Response: Pain is decreased j7 00:29 Drug: NS 0.9% IV 1000 ml IV at 1 bolus Per protocol; to be given as a bolus over 60 jj7 minutes Route: IV; Rate: 1 bolus; Site: right antecubital; 01:10 Follow up: IV Status: Completed infusion jj7 01:09 Drug: Hydrocodone-Acetaminophen PO (7.5 mg-325 mg) 1 tabs PO once Route: PO; jj7 01:10 Follow up: Response: No adverse reaction jj7 Medication: 01:12 VIS not applicable for this client. jj7 Outcome: 00:54 Discharge ordered by . sb4 01:11 Discharged to home ambulatory, jj7 01:11 Condition: good 01:11 Discharge instructions given to patient, Instructed on discharge instructions, follow up and referral plans. medication usage, Demonstrated understanding of instructions, follow-up care, medications, Prescriptions given X 3, 01:12 Patient left the ED. jj7 Signatures: Elsa Villeda jj6 Leslie Simental RN RN jj7 Yas Camacho PA-C PAKristen [email or web address] Kim [email or web address] Corrections: (The following items were deleted from the chart) 09/12 23:56 23:55 PMHx: TMJ (Nephrectomy - Right); jj7 jj7 23:56 23:55 PMHx: TMJ (Nephrectomy - Right); jj7 jj7
[2024-09-13] MEDS ORDERED: HYDROCODONE/APAP 7.5/325 MG TAB ONE (00:59)
[2024-09-13 01:18] VITALS: BP 134/60; TEMP 98.1; O2SAT 98
== END 2024-09-13 01:12 | disposition home or self-care (01) ==
LOC: ER 23:39
DX: M26.602 Left temporomandibular joint disorder, unspecified (principal); R51.9 Headache, unspecified; R11.0 Nausea
CPT/HCPCS: 96361; 96375; 96374; 99284; J2550; J3360; J1100; J7030